=== PATIENT | male | born 1965 | race Caucasian/White ===

== ENCOUNTER 2023-01-04 14:55 | Emergency (ER) | payer MEDICARE ==
[2023-01-04] MEDS ORDERED: KETOROLAC 30 MG/ML INJ ONE (15:31)
[2023-01-04] MEDS ORDERED: ONDANSETRON 4 MG/2 ML VIAL ONE (15:31)
[2023-01-04] MEDS ORDERED: NA CHLORIDE 0.9% 1,000 ML ONE (15:31)
--- OUTSIDE RECORDS SUMMARY | 2023-01-04 15:37 | XMS REPORT | Continuity of Care Document ---
:1965 Author Organization [facility] t Address [address] [facility] [address] [place] [address] Care Team Providers Name Role Phone JOHN REYNOSO Primary Care Physician Unavailable JOHN REYNOSO Attending Clinician Unavailable SUZY VILLALBA Attending Clinician Unavailable ESTELLA DE LA GARZA Attending Clinician Unavailjose eduardo Cody Attending Clinician Unavailable Rizwana Mccarthy RN Attending Clinician Unavailable MARY ELLEN BORJA Attending Clinician Unavailable Frederic JAMES, Estella Mirza Attending Clinician [phone] Kashif SUPERVISOR UNLOADING, Jaylen Attending Clinician Ra Nelson MD Attending Clinician Lavonne Winter Attending Clinician Bharati OUTSIDE PROPERTY AGENT, Lindsey Elizabeth Attending Clinician BRODERICK Attending Clinician Unavailable Arnold JAMES, Jens Umana Attending Clinician Nghia Wei MD Attending Clinician Fabian Washington MD Attending Clinician Lauren OUTSIDE PROPERTY AGENT, Nathan Attending Clinician [facility] Attending Clinician Unavailable Jarek Baltazar MD Attending Clinician Villa BASHIR, Angella Griffiths Attending Clinician Kee OUTSIDE PROPERTY AGENT, Renea Seaman Attending Clinician Bernardino NELSONW, Lesly Attending Clinician Unavailable Poly Carlson RN Attending Clinician Unavailable Veronika Rausch MD Attending Clinician Tate OUTSIDE PROPERTY AGENT-CCortney Attending Clinician SURAJ ALAN Attending Clinician Unavailable SHANTA GUEVARA Attending Clinician Unavailable SHAKIR STREET Attending Clinician Unavailable SHELBY GASTON Attending Clinician Unavailable GUIDO LOPEZ Attending Clinician Unavailable PETRONA GENTILE Attending Clinician Unavailable BLAZE DORAN Attending Clinician Unavailable LAY BROWN Attending Clinician Unavailable Suraj Alan MD Attending Clinician Guido Lopez MD Attending Clinician Morgan ARGUELLO, Gayle Attending Clinician Unavailable YENIFER STORM Attending Clinician Unavailable Carly Dhillon MD Attending Clinician Peyton JAMES, Zuly Beal Attending Clinician [phone] Emeterio JAMES, Yenifer Collazo Attending Clinician TASH WILSON Attending Clinician Unavailable MAGDA WAITE Attending Clinician Unavailable Mariann JAMES, Magda Arreola Attending Clinician ESTELLA DE LA GARZA Attending Clinician Unavailable ELDON PAGE Attending Clinician Unavailable Carlos JAMES, Kvng Palmer Attending Clinician [phone] Danilo Tee MD Attending Clinician [phone] Ike JAMES, Ann Marie Bell Attending Clinician Toby JAMES, Eldon Attending Clinician Sinai Mcpherson MD Attending Clinician Jeri JAMES, Helen Oakes Attending Clinician Erma JAMES, Low Mosley Attending Clinician Yolanda Reynolds Attending Clinician Unavailable JADYN FERNANDEZ Attending Clinician Unavailable Chandler Landry DO S Attending Clinician Mohit JAMES, Jadyn Damian Attending Clinician [phone] Deon JAMES, Megan Gomez Attending Clinician [phone] Michael JAMES, Noman Attending Clinician Beth JAMES, Tiffany Attending Clinician Sushant Reeves Attending Clinician Sam JAMES, Solitario Davison Attending Clinician [phone] Jud JAMES, Ike Attending Clinician Cassandra JAMES, Maurice Attending Clinician Reji ARGUELLO, Nellie De La Vega Attending Clinician RAHUL SCRUGGS Attending Clinician Unavailable Moses JAMES, Jerry S Attending Clinician Rahul Scruggs MD Attending Clinician JERRY LOPES Attending Clinician Unavailable Apolinar Sheriff MD, Varghese Attending Clinician Henrique Meza MD Attending Clinician HENRIQUE MEZA Attending Clinician Unavailable ALANNAH BUTLER Attending Clinician Unavailable Luke SUPERVISOR UNLOADING, Alannah Attending Clinician Doctor Unassigned, [place] Attending Clinician Unavailable Ezequiel Arcos Attending Clinician EZEQUIEL CROOKS Attending Clinician Unavailable Pcp, Patient Does Not Have A Attending Clinician [phone] Marquise JAMES, Jody Attending Clinician Martinez JAMES, Pancho Quiroga Attending Clinician Yenifer JAMES, Wes Chavez Attending Clinician Perlita JAMES, Osbaldo Tamez Attending Clinician Paulino JAMES, Joi Obrien Attending Clinician [phone] Rodríguez JAMES, Jens Sotelo Attending Clinician [phone] HARSHAD PRESLEY Attending Clinician Unavailable Tim Saenz MD Attending Clinician David JAMES, Lulu Hammond Attending Clinician Adiel Antony MD Attending Clinician MD ADIEL ANTONY Attending Clinician Unavailable Avril JAMES, Buster Castillo Attending Clinician [phone] Jody Mendez RN Attending Clinician Unavailable Alivia Wood MA Attending Clinician Unavailable Marcelino Ocampo MD Attending Clinician MARCELINO OCAMPO Attending Clinician Unavailable Rivenes MD, Emigdio R. Attending Clinician Duarte Rincon MD Attending Clinician Room, Timothy Uro Procedure Attending Clinician Unavailable DUARTE RINCON Attending Clinician Unavailable DR BUDDY SHELLEY Attending Clinician Unavailable JOHN REYNOSO Admitting Clinician Unavailable SUZY VILLALBA Admitting Clinician Unavailable Glo Admitting Clinician Unavailable BRODERICK Admitting Clinician Unavailable RA NELSON Admitting Clinician Unavailable NGHIA WEI Admitting Clinician Unavailable SHANTA GUEVARA Admitting Clinician Unavailable GUIDO LOPEZ Admitting Clinician Unavailable PETRONA GENTILE Admitting Clinician Unavailable BLAZE DORAN Admitting Clinician Unavailable SURAJ ALAN Admitting Clinician Unavailable ZULY TODD Admitting Clinician Unavailable CARLY DHILLON Admitting Clinician Unavailable DANILO TEE Admitting Clinician Unavailable TIFFANY MAIN Admitting Clinician Unavailable RAHUL SCRUGGS Admitting Clinician Unavailable Rahul Scruggs MD Admitting Clinician JERRY LOPES Admitting Clinician Unavailable ALANNAH BUTLER Admitting Clinician Unavailable PANCHO MYERS Admitting Clinician Unavailable Pancho Myers MD Admitting Clinician ADIEL ANTONY Admitting Clinician Unavailable MD ADIEL ANTONY Admitting Clinician Unavailable Duarte Rincon MD Admitting Clinician DUARTE RINCON Admitting Clinician Unavailable DR BUDDY SHELLEY Admitting Clinician Unavailable Payers Payer Name Policy Type Policy Number Effective Date Expiration Date S anika BCBS ADV HMO [id number] 2017 EXCHANGE 00:00:00 [place] [id number] 2022 2023 ADVANTAGE (HMO) 00:00:00 00:00:00 Problems Condition Condition Condition Status Onset Resolution Last Treating Co mments Source Name Details Category Date Date Treatment Clinician Date Overweight Overweight Problem Active [facility] 9-08 da 00:00: Medical 00 Group Primary Primary Problem Active [place] [facility] 6 da nervous Nervous 00:00: Medical system System 00 Group lymphoma Lymphoma Seasonal Seasonal Problem Active [place] allergic Allergic 6 da rhinitis Rhinitis 00:00: Medica l 00 Group Non-Hodgki Non-Hodgki Problem Active [facility] n's n's 4-18 da lymphoma Lymphoma 00:00: [facility] 00 al nervous Nervous Health system System Outreac h Program Body mass Body Mass Problem Active [facility] index Index 4-18 da 25-29 - 25-29 - 00:00: [facility] overweight Overweight 00 al Health Outreac h Program Status Status Disease Active [facility] 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 Primary Primary Disease Active [facility] MANAGEMENT TRAINEE PROGRAM STORES MANAGEMENT TRAINEE PROGRAM STORES 3 st lymphoma lymphoma 00:00: Hospit a 00 l Neutropeni Neutropeni Disease Active M ethodi c fever c fever 04-22 st 00:00: Hospita 00 l Sepsis Sepsis Disease Active [facility] 2 st 00:00: Hospita 00 l MANAGEMENT TRAINEE PROGRAM STORES MANAGEMENT TRAINEE PROGRAM STORES Disease Active [facility] lymphoma lymphoma 2 st 00:00: Hospita 00 l Seasonal Seasonal Problem Active [place] allergy Allergy 1-18 da 00:00: [facility] Hypertensi Hypertensi Problem Active [facility] ve ve 1-11 da disorder Disorder 00:00: [facility] Atrial Atrial Problem Active [place] fibrillati Fibrillati 1-11 da on on 00:00: [facility] Cerebrovas Cerebrovas Problem Active [facility] cular cular 1-11 da accident Accident 00:00: [facility] Allergic Allergic Problem Active [place] rhinitis Rhinitis 1-11 da 00:00: [facility] Gastroesop Gastroesop Problem Active [facility] hageal hageal 1-11 da reflux Reflux 00:00: [facility] disease Disease 00 al Health Outreac h Program Rosacea Rosacea Problem Active [place] 1-11 da 00:[facility]: [facility] Abnormal Abnormal Problem Active [place] gait Gait 03-14 da 00:00: [facility] Hyperchole Hyperchole Problem Active [facility] sterolemia sterolemia 03-14 da 00:00: [facility] Hypertrigl Hypertrigl Problem Active [facility] yceridemia yceridemia 03-14 da 00:00: [facility] 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 04/23/22 collected 5.462 x 10-6 CD34/kg Severe Severe Disease Recurre [facility] sepsis sepsis [facility] MANAGEMENT TRAINEE PROGRAM STORES MANAGEMENT TRAINEE PROGRAM STORES Disease Recurre [facility] lymphoma lymphoma nce 8-17 [facility] Center Thrombocyt Thrombocyt Disease Active [facility] openia openia 8-05 [facility] Center Thrombocyt Thrombocyt Disease Recurre [facility] openia openia nce 8-05 [facility] 00 Center Pancytopen Pancytopen Disease Active [facility] ia ia 6-29 [facility] Center Sepsis Sepsis Disease Active [facility] 6[facility] Center Epistaxis Epistaxis Disease Active [facility] 6[facility] Hypokalemi Hypokalemi Disease Active [facility] a a 6-28 [facility] 00 Center Neutropeni Neutropeni Disease Active [facility] c fever c fever 6-28 [facility] Primary Primary Disease Recurre [facility] MANAGEMENT TRAINEE PROGRAM STORES MANAGEMENT TRAINEE PROGRAM STORES nce 6-14 [facility] lymphoma lymphoma 00:00: Medica l 00 Center Stroke-lik Stroke-lik Disease Active C [facility] e symptoms e symptoms 6-03 [facility] 00:00: Medical 00 Center Obesity Obesity Disease Active Univers (BMI (BMI 5-06 ity of 30-39.9) 30-39.9) 00:00: [place] 00 [facility] Brain mass Brain mass Disease Active U nivers 5-04 ity of 00:00: Medical Branch Cerebellar Cerebellar Disease Active U nivers mass mass 1-18 ity of 00:00: [place] [facility] Perineal Perineal Disease Active Unive rs abscess abscess 1-13 ity of 00:00: Medical Branch 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 2-11 st 00:00: Hospita 00 l Right Right Disease Active 2020-03 Methodi sided sided 2-09 st numbness numbness 00:00: Hospit a 00 l Cerebrovas Cerebrovas Disease Active 2020-03 M ethodi cular cular 1 st accident accident 00:00: Hospit a (CVA) (CVA) 00 l Walker as Walker as Disease Active 2020-03 Met hodi ambulation ambulation [address] [facility] aid aid 00:00: Hospita 00 l Diplopia Diplopia Disease Active 2020-[address] 00:00: Hospita 00 l Right Right Disease Active Univers nephrolith nephrolith 9-11 it y of iasis iasis 00:00: [place] 00 [facility] Branch SVT SVT Disease Recurre 2019-[address] (supravent (supravent nce 0-07 [facility] ricular ricular 00:00: Medical tachycardi tachycardi 00 Ce nter a) a) SVT SVT Disease Active Univers (supravent (supravent 9-30 it y of ricular ricular 00:00: [place] tachycardi tachycardi 00 Me dical a) a) Branch A-fib A-fib Disease Recurre 2017-[address] nce 1-26 [facility] Center DIARRHEA DIARRHEA Diagnosis Active 2011-032012-01-14 [facility] VOMITING VOMITING 03-15 08:45:00 l Active 07:00: Fred 01/14/2012 00 [place] PARTIAL PARTIAL Diagnosis Active 2011-032012-01-17 [facility]oria BOWEL BOWEL - 10:47:00 l OBSTRUCTIO OBSTRUCTIO 07:00: Jimmy bernal N N Active 00 01/14/2012 [place] Diarrhea Diarrhea Problem Active 2012-01-19 [facility]oria Active 10:05:59 l Problem [place] 01/19/2012 Liz Go INTESTINAL INTESTINA Diagnosis Active 2012-01-17 [facility] OBSTRUCT L OBSTRUCT 10:47:00 l NOS NOS Active Nitesh palmer [place] Lymphoma Lymphoma Disease Resolve 2021-09-21 2021-09-[address] [facility] 09-21 00:00:00 18:52:35 [facility] 00 Center Allergies, Adverse Reactions, Alerts Allergy Allergy Status Severity Reaction(s) Onset Inactive Treating Comm ents Source Name Type Date Date Clinician LORATADI DRUG Active Other-Cmnt Univ ers NE INGREDI 03-15 ity of 00:00: [place] 00 [facility] Branch Loratadi Propensi Active Other - See U nivers ne ty to comments 03-15 ity of adverse 00:00: [place] reaction 00 Medical s Branch LORATADI Allergy Active Low Other 2020-03 [facility] NE 03-10 00:00: 00 Loratadi Propensi Active Other (See 2020-[address] ne ty to Comments) 03-10 [facility] adverse 00:00: Medical reaction 00 Center s Loratadi Propensi Active Other (See 2020-03 Nasal Me thodi ne ty to Comments) 03-06 drip (30 st adverse 00:00: years Hospita reaction 00 ago) did l s to not have drug any rash, swelling, hives, or trouble breathing . Has not tried carole or zyrtec No Known DA Active [facility] NO KNOWN Allergy Active [facility] ALLERGIE S Claritin Allergy Active [place] to da substanc [facility] Family History Family Member Diagnosis Comments Start Date Stop Date Source Natural father Diabetes [facility] Natural mother Cirrhosis [facility] Natural mother Diabetes [facility] Social History Social Habit Start Date Stop Date Quantity Comments Source Sexual orientation 2021-02-11 Heterosexual Meth odist 05:26:20 (finding) Hospital History SDOH [facility] Alcohol Frequency Medical Center History SDOH [facility] Alcohol Std Drinks Medica l Center History SDOH [facility] Alcohol Binge Medical [facility] History SDOH [facility] Transport Non-Med Medical Center Alcohol intake 2022-11-06 2022-11-06 Current drinker of [facility] 00:[facility] 00:00:00 alcohol (finding) Medical Center History of Social 2022-08-14 2022-08-[address] function 00:00:00 00:00:00 Hospital Tobacco use and 2022-08-01 2022-08-[address] [facility] exposure 00:00:00 00:00:00 non-user Medical Center History [facility] 2021-11-27 2021-11-[address] [facility] Transport Med 00:00:00 00:00:[address] History [facility] 2021-11-27 2021-11-[address] [facility] Housing Unable to 00:00:00 00:00:00 Medical Center Pay History [facility] 2021-11-27 2021-11-[address] [facility] Housing Places 00:00:00 00:00:00 Medical Ce nter Lived History [facility] 2021-11-27 2021-11-[address] [facility] Housing Homeless 00:00:00 00:00:00 Medical Center Last Year Alcohol Comment 2021-11-15 2021-11-[address] [facility] 00:00:00 00:00:00 Medical Center Exposure to 2021-06-25 2021-07-05 Not sure University of SARS-CoV-2 (event) 00:00:00 12:10:00 [facility] Sex Assigned At [birth year] M [facility] 00:00:00 00:00:00 [facility] Center Smoking Status Start Date Stop Date Source Never smoked tobacco [facility] Medications Ordered Filled Start Stop Current Ordering Indication Dosage Frequency Signature Comments Components Source Medication Medication Date Date Medication? Clinician (SIG) Name Name multivitami Yes 1{tbl} Take [address] [facility] 9-05 tablet by S[place]hal (THERAGRAN) 10:10: mouth. Medi samantha tablet Center sulfamethox 2022- No [id number] 1{tbl} Take 1 [facility] azole-trime -11-[address] thoprim 00:00: 04:59 mouth Hospita (BACTRIM 00 :00 Every l DS) 800-160 Saturday, mg per Saturday, tablet and Saturday for 90 days. montelukast 2022-0 2022- No 10mg QD Take 1 Met hodi (SINGULAIR) -14 08-13 tablet (10 s t 10 mg 13:49: 00:00 mg total) Hospit a tablet 50 :00 by mouth l nightly. pantoprazol 2022-0 2022- No 40mg QD Take 1 Met hodi e 08-14- tablet (40 st (PROTONIX) 13:49: 00:00 mg total) H ospita 40 MG EC 30 :00 by mouth l tablet daily. acyclovir 0 Yes [id number] 400mg Q.5D Take 1 [facility] (ZOVIRAX) - tablet st 400 MG 00:00: (400 mg Hospita tablet 00 total) by l mouth 2 (two) times a day. pantoprazol 0 Yes 40mg Take [address] e 5-31 tablet (40 [facility] (PROTONIX) 13:06: mg total) Me dical 40 MG 00 by mouth. Center tablet montelukast [address] [facility] (SINGULAIR) 5-12 Tablet(s) Maura es 10 mg 00:00: By Mouth Medical tablet 00 Every Center Evening sulfamethox 2022-0 Yes 160mg{t Q.[id number] Take [address] azole-trime -19 rimetho [id number] tablet [facility] thoprim 00:00: prim} 3W (160 mg of Med ical (BACTRIM 00 trimethopr Cente r DS) 800-160 im total) mg per by mouth 3 tablet (three) times a week SAT/SAT/ I. sulfamethox 2022-0 2022- No 160mg{t Take [address] azole-trime -19 07-18 rimetho tablet [facility] thoprim 00:00: 23:59 prim} (160 mg of Me dical (BACTRIM 00 :00 trimethopr Cente r DS) 800-160 im total) mg per by mouth. tablet sulfamethox 3-0 2022- No [id number] 1{tbl} Take 1 [facility]i azole-trime -20 08- tablet by st thoprim 00:00: 00:00 mouth Hospita (BACTRIM 00 :00 Every l DS) 800-160 Saturday, mg per Saturday, and Saturday for 90 days. metoprolol metoprolol No metoprolol [place] succinate succinate 4-18 succinate da ER 25 mg ER 25 mg 00:00: ER 25 mg E [facility]isc[facility] tablet,exte tablet,exte 00 tablet,ext al nded nded ended Health release 24 release 24 release 24 Outreac hr TAKE 2 hr TAKE 2 hr TAKE 2 h TABLETS BY TABLETS BY TABLETS BY Program MOUTH ONCE MOUTH ONCE MOUTH ONCE DAILY DAILY DAILY tamsulosin tamsulosin No tamsulosin [place] 0.4 mg 0.4 mg 4-18 0.4 mg da capsule capsule 00:00: capsule Epis gyroscope repairer Take 1 Take 1 00 Take 1 al capsule capsule capsule Health every day every day every day Outreac by oral by oral by oral h route. route. route. Program atorvastati 2022- No 40mg QD Take 1 Met hodi n (LIPITOR) 3-30 03-30 tablet (40 s t 40 mg 18:59: 00:00 mg total) Hospit a tablet 21 :00 by mouth l nightly. On hold metoprolol 2022- No 12.5mg Q.5D Take 0.5 [facility]i tartrate 3-30 03-[address] (LOPRESSOR) 18:59: 00:00 (12.5 mg H ospita 25 mg 21 :00 total) by l tablet mouth 2 (two) times a day. multivitami Yes 1{tbl} QD Take 1 Me thodi n tablet 3-[address] 18:59: mouth Hospita 19 every l evening. At 1900. ondansetron 2022- No 8mg Q8H Take 1 Met hodi ODT 3-30 03-30 tablet (8 st (ZOFRAN-ODT 14:16: 00:00 mg total) Hospita ) 8 MG 26 :00 by mouth l disintegrat every 8 ing tablet (eight) hours as needed for nausea or vomiting. acyclovir Yes 400mg Q.5D Take 1 [facility] (ZOVIRAX) 3-30 tablet [facility] 400 MG 00:00: (400 mg Medical tablet 00 total) by Center mouth in the morning and 1 tablet (400 mg total) before bedtime. dexAMETHaso 0 Yes Take by [facility] 3-30 mouth. [facility] (DECADRON) 00:00: Medical 1 MG tablet 00 Center doxycycline 0 Yes 100mg Q.5D Take [address] (VIBRAMYCIN 3-30 capsule [facility] ) 100 MG 00:00: (100 mg Medica l capsule 00 total) by Center mouth in the morning and 1 capsule (100 mg total) before bedtime. ondansetron 0 Yes 8mg Take [address] (ZOFRAN-ODT 3-30 tablet (8 Maura es ) 8 MG 00:00: mg total) Medica l disintegrat [address] ing tablet traMADoL Yes 50mg Q6H Take [address] (ULTRAM) 50 3-30 tablet (50 [facility]es mg tablet 00:00: mg total) Med ical 00 by mouth Center every 6 (six) hours if needed. ondansetron 2022- No 8mg Q8H Take 1 Met hodi ODT 3-30 06-13 tablet (8 st (ZOFRAN-ODT 00:00: 00:00 mg total) Hospita ) 8 MG 00 :00 by mouth l disintegrat every 8 ing tablet (eight) hours as needed for nausea or vomiting. acyclovir 2022- No [id number] 400mg Q.5D Take 1 [facility]i (ZOVIRAX) 3-30 06-[address] 400 MG 00:00: 00:00 (400 mg Hospita tablet 00 :00 total) by l mouth 2 (two) times a day. traMADoL 2022- [place] [id number] 50mg Q6H Take 1 Metho di (ULTRAM) 50 3-30 06-13 tablet (50 s t mg tablet 00:00: 00:00 mg total) Ho spita 00 :00 by mouth l every 6 (six) hours as needed for moderate pain .acute pain. pentamidine 2022- No 300mg Q30D Take 300 [facility] (PENTAM) 3-30 04-[address] 300 mg in 00:00: 00:00 nebulizati H ospita Sterile 00 :00 on every l Water 30 (thirty) days. Due 06/29/22 in clinic dexAMETHaso 2022- No 1mg Q.5D Take 1 Met hodi ne 05-31-07 tablet (1 st (DECADRON) 00:00: 04:59 mg total) H ospita 1 MG tablet 00 :00 by mouth l every 12 (twelve) hours for 7 days. doxycycline 2022- No 100mg Q.5D Take 1 Me thodi (VIBRAMYCIN 05-31-[address] ) 100 MG 00:00: 04:59 (100 mg Hospi ta capsule 00 :00 total) by l mouth 2 (two) times a day for 5 days. acyclovir 2022- No 400mg Q.5D Take 1 Meth saroj (ZOVIRAX) 04-[address] 400 MG 15:12: 00:00 (400 mg Hospita tablet 15 :00 total) by l mouth 2 (two) times a day. fluconazole No 200mg QD Take 1 Me thodi (DIFLUCAN) 04-[address] 200 MG 15:12: 00:00 (200 mg Hospita tablet 15 :00 total) by l mouth daily. X 14 days, started on 04/12/22 levoFLOXaci No 500mg QD Take 1 Me thodi n 04-[address] (LEVAQUIN) 15:12: 00:00 (500 mg Hos guy 500 MG 15 :00 total) by l tablet mouth daily. filgrastim- 2022- No 960ug QD 1.6 mL Me thodi sndz 04-25 ([address] (ZARXIO) 15:12: 00:00 total) Hospit a 480 mcg/0.8 15 :00 daily. 2 l mL syringe shots daily X 9 days, started on 04/17/22 METOPROLOL 2022- No 12.5mg Q.5D Take 12.5 Methodi SUCCINATE 04-22 02-[address] ORAL 13:09: 00:00 mouth 2 Hospita 23 :00 (two) l times a day. montelukast 2022- No [id number] 10mg QD Take 1 [facility] (SINGULAIR) 04-16 tablet (10 s t 10 mg 00:00: 00:00 mg total) Hospit a tablet 00 :00 by mouth l nightly for 30 days. prednisoLON 2022- No [id number] 2[drp] Q.2D Administer Methodi E acetate 04-[address] (PRED 00:00: 00:00 both eyes Hospit a FORTE) 1 % 00 :00 every 4 l ophthalmic (four) suspension hours while awake. levoFLOXaci 2022- No [id number] 500mg QD Take 1 Methodi n 04-[address] (Levaquin) 00:00: 00:00 (500 mg Hos guy 500 MG 00 :00 total) by l tablet mouth daily. acyclovir 2022- No 400mg Q.5D Take 1 Meth saroj (ZOVIRAX) 04-[address] 400 MG 00:00: 00:00 (400 mg Hospita tablet 00 :00 total) by l mouth 2 (two) times a day. ondansetron 2022- No 8mg Q8H Take 1 Met hodi ODT 04-12 tablet (8 st (ZOFRAN-ODT 00:00: 00:00 mg total) Hospita ) 8 MG 00 :00 by mouth l disintegrat every 8 ing tablet (eight) hours as needed for nausea or vomiting. fluconazole 2022- No 200mg QD Take 1 Me thodi (DIFLUCAN) 04-[address] 200 MG 00:00: 00:00 (200 mg Hospita tablet 00 :00 total) by l mouth daily. acetaminoph 2022- No 325mg Q8H Take 325 Methodi en 04-10 02-[address] (TYLENOL) 12:23: 00:00 mouth Hospit a 325 MG 59 :00 every 8 l tablet (eight) hours as needed for moderate pain or fever. levoFLOXaci 0 2022- No [id number] 500mg QD Take 1 Methodi n 03-[address] (Levaquin) 00:00: 00:00 (500 mg Hos guy 500 MG 00 :00 total) by l tablet mouth daily for 10 days. levoFLOXaci No [id number] 500mg QD Take 1 Methodi n 03-[address] (Levaquin) 00:00: 00:00 (500 mg Hos guy 500 MG 00 :00 total) by l tablet mouth daily for 10 days. montelukast No 10mg QD Take 1 Met hodi (SINGULAIR) 03-14 tablet (10 s t 10 mg 00:00: 00:00 mg total) Hospit a tablet 00 :00 by mouth l nightly for 30 days. benzonatate [id number] 100mg Q.[id number] Take 1 [facility] (TESSALON) 03-[id number] 100 MG 00:00: 00:00 3D (100 mg Hospita capsule 00 :00 total) by l mouth 3 (three) times a day as needed for cough for up to 30 days. levoFLOXaci No [id number] 500mg QD Take 1 Methodi n 03-[address] (Levaquin) 00:00: 00:00 (500 mg Hos guy 500 MG 00 :00 total) by l tablet mouth daily for 10 days. filgrastim- No [id number] 960ug QD Inject 1.6 Methodi sndz 03-14 mL (960 st (Zarxio) 00:00: 05:59 mcg total) Ho spita 480 mcg/0.8 00 :00 under the l mL syringe skin daily for 9 days. lisinopriL 2021-03 No 20mg QD Take 20 mg [facility] (PRINIVIL) 04-25- by mouth st 20 mg 11:26: 00:00 daily. Hospita tablet 16 :00 l aspirin 2021-03 No 81mg QD Take 81 mg Met hodi (ECOTRIN) 04-25-[address] 81 MG 11:26: 00:00 daily. Hospita enteric 04 :00 l coated tablet metoprolol 2021-03 No 50mg QD Take 50 mg Methodi succinate 2-02-[address] XL 11:25: 00:00 daily. Hospita (TOPROL-XL) 41 :00 l 50 mg 24 hr tablet ondansetron 2021-03 No 8mg Q8H Take 8 mg [facility] (ZOFRAN) 8 04-[address] [facility] tablet 10:10: 00:00 every 8 [facility] 42 :00 (eight) l hours as needed for nausea or vomiting. meclizine 2021-03 No 25mg Q24H Take 25 mg [facility] (ANTIVERT) 04-[address] 25 mg 10:10: 00:00 daily as Hospita tablet 39 :00 needed for l dizziness or nausea. montelukast 2021-03 No Metho di (SINGULAIR) 04-2011 st 10 mg 00:00: 00:00 Hospita tablet 00 :00 l atorvastati Yes 40mg QD Take [address] [facility] (LIPITOR) 9-30 by mouth [facility] 40 MG 13:26: nightly. Medical tablet 55 [place] atorvastati Yes 40mg QD Take [address] [facility] (LIPITOR) 8-23 by mouth [facility] 40 MG 10:59: nightly. Medical tablet 03 [place] atorvastati Yes 40mg QD Take [address] [facility] (LIPITOR) 8-23 by mouth [facility] 40 MG 10:59: nightly. Medical tablet 03 [place] levoFLOXaci No 500mg QD Take [address] [facility] 10-[facility] (LEVAQUIN) 00:00: 23:59 (500 mg Med ical 500 MG 00 :00 total) by Center tablet mouth daily for 14 days. fluconazole No 200mg QD Take [address] (DIFLUCAN) 10-24 tablet [facility] 200 MG 00:00: 23:59 (200 mg Medical tablet 00 :00 total) by Center mouth daily for 14 days. acyclovir 2021- No 400mg Q.5D Take [address] [facility] (ZOVIRAX) 10-24 tablet [facility] 400 MG 00:00: 23:59 (400 mg Medical tablet 00 :00 total) by Center mouth 2 (two) times daily for 14 days. levoFLOXaci 2021-0 2022- No 500mg QD Take [address] [facility] 10-24 [facility] (LEVAQUIN) 00:00: 23:59 (500 mg Med ical 500 MG 00 :00 total) by Center tablet mouth daily for 14 days. fluconazole 2021-0 2022- No 200mg QD Take [address] (DIFLUCAN) 10-24 [facility] 200 MG 00:00: 23:59 (200 mg Medical tablet 00 :00 total) by Center mouth daily for 14 days. acyclovir 2021- 202- No 400mg Q.5D Take [address] [facility] (ZOVIRAX) 10-24 tablet [facility] 400 MG 00:00: 23:59 (400 mg Medical tablet 00 :00 total) by Center mouth 2 (two) times daily for 14 days. aspirin 81 2021-0 2022- No 81mg QD Take [address] [facility] MG chewable 10-07 by mouth [facility] [facility] tablet 13:03: 00:00 daily. Medical 33 :00 Center aspirin 81 2021-0 2022- No 81mg QD Take [address] [facility] MG chewable 10-07 by mouth [place] [facility] tablet 13:03: 00:00 daily. Medical 33 :00 Center levoFLOXaci 2021-0 2022- No 500mg QD Take [address] [facility] 09-26 tablet [facility] (LEVAQUIN) 00:00: 23:59 (500 mg Med ical 500 MG 00 :00 total) by Center tablet mouth daily for 14 days. fluconazole 2021-0 2022- No 200mg QD Take [address] (DIFLUCAN) 09-26 tablet [facility] 200 MG 00:00: 23:59 (200 mg Medical tablet 00 :00 total) by Center mouth daily for 14 days. levoFLOXaci 2-0 2022- No 500mg QD Take [address] [facility] 09-26 tablet [facility] (LEVAQUIN) 00:00: 23:59 (500 mg Med ical 500 MG 00 :00 total) by Center tablet mouth daily for 14 days. fluconazole 2022-0 2022- No 200mg QD Take [address] (DIFLUCAN) 09-26 tablet [facility] 200 MG 00:00: 23:59 (200 mg Medical tablet 00 :00 total) by Center mouth daily for 14 days. acyclovir 2021- No 400mg Q.5D Take [address] [facility] (ZOVIRAX) 09-26 tablet [facility] 400 MG 00:00: 23:59 (400 mg Medical tablet 00 :00 total) by Center mouth 2 (two) times daily for 5 days. acyclovir 2021- No 400mg Q.5D Take [address] [facility] (ZOVIRAX) 09-26 tablet [facility] 400 MG 00:00: 23:59 (400 mg Medical tablet 00 :00 total) by Center mouth 2 (two) times daily for 5 days. metoprolol 2022- No 12.5mg Q.5D Take 0.[address] tartrate 09-12 tablets [facility] (LOPRESSOR) 00:00: 23:59 (12.5 mg M edical 25 MG 00 :00 total) by Center tablet mouth 2 (two) times daily for 180 days. metoprolol 2022- No 12.5mg Q.5D Take 0.[address] tartrate 09-12- tablets [facility] (LOPRESSOR) 00:00: 23:59 (12.5 mg M edical 25 MG 00 :00 total) by Center tablet mouth 2 (two) times daily for 180 days. metoprolol 2022- No 12.5mg Q.5D Take 0.[address] tartrate 09-12 tablets [facility] (LOPRESSOR) 00:00: 23:59 (12.5 mg M edical 25 MG 00 :00 total) by Center tablet mouth 2 (two) times daily for 180 days. metoprolol 2021- No 50mg Q.5D Take [address] [facility] succinate 08-23- by mouth 2 [facility] [facility] (TOPROL-XL) 17:07: 00:00 (two) Medi samantha 50 MG 24 hr 03 :00 times Center tablet daily. metoprolol 2021- No 50mg Q.5D Take [address] [facility] succinate 08-23- by mouth 2 [facility] [facility] (TOPROL-XL) 17:07: 00:00 (two) Medi samantha 50 MG 24 hr 03 :00 times Center tablet daily. clopidogreL 2-0 2022- No 75mg QD Take [address] [facility] (PLAVIX) 75 -22 08-21 by mouth [facility] [facility] mg tablet 08:04: 00:00 daily. Medic al 49 :00 Center clopidogreL 2-0 2022- No 75mg QD Take [address] [facility] (PLAVIX) 75 -22 08-21 by mouth [place] [facility] mg tablet 08:04: 00:00 daily. Medic al 49 :00 Center tamsulosin 2022-0 Yes .4mg QD Take 1 [facility] (FLOMAX[facility] 6-21 capsule [facility] 0.4 mg Cap 00:00: (0.4 mg Medi samantha 24 hr 00 total) by Center capsule mouth daily. famotidine 2022-0 Yes 20mg Q.5D Take 1 [facility] (PEPCID) 20 6-21 tablet (20 [facility] kes MG tablet 00:00: mg total) Med ical 00 by mouth 2 Center (two) times daily. tamsulosin 2022-0 Yes .4mg QD Take 1 [facility] (FLOMAX[facility] 6-21 [facility] 0.4 mg Cap 00:00: (0.4 mg Medi samantha 24 hr 00 total) by Center capsule mouth daily. famotidine 2022-0 Yes 20mg Q.5D Take 1 [facility] (PEPCID) 20 6-21 tablet (20 Damari kes MG tablet 00:00: mg total) Med ical 00 by mouth 2 Center (two) times daily. tamsulosin 2022-0 Yes .4mg QD Take 1 [facility] (FLOMAX[facility] 6-21 [facility] 0.4 mg Cap 00:00: (0.4 mg Medi samantha 24 hr 00 total) by Center capsule mouth daily. allopurinoL 2022-0 2023- No 300mg QD Take [address] (ZYLOPRIM) -22 08- tablet [facility] 300 MG 00:00: 23:59 (300 mg Medical tablet 00 :00 total) by Center mouth daily. allopurinoL 2022-0 2023- No 300mg QD Take [address] (ZYLOPRIM) 6-22 08-21 tablet [facility] 300 MG 00:00: 23:59 (300 mg Medical tablet 00 :00 total) by Center mouth daily. tamsulosin 2022- No .4mg QD Take 1 Meth saroj (FLOMAX) 08-[address] 0.4 mg 00:00: 00:00 (0.4 mg Hospita capsule 00 :00 total) by l mouth daily. metoprolol 2021- No 50mg QD Take [address] [facility] [address] succinate 08-22 tablets [facility] (TOPROL-XL) 00:00: 00:00 (50 mg Med ical 25 MG 24 hr 00 :00 total) by [facility] tablet mouth daily. ciprofloxac 2021- No 500mg Q.5D Take [address] in HCl 08-22 tablet [facility] (CIPRO) 500 00:00: 00:00 (500 mg Me dical MG tablet 00 :00 total) by Cente r mouth 2 (two) times daily for 14 days. acyclovir 2021- No 400mg Q.5D Take [address] [facility] [address] (ZOVIRAX) 08-22 tablet [facility] 400 MG 00:00: 00:00 (400 mg Medical tablet 00 :00 total) by Center mouth 2 (two) times daily for 14 days. fluconazole 2021- No 200mg QD Take [address] (DIFLUCAN) 08-22 tablet [facility] 200 MG 00:00: 00:00 (200 mg Medical tablet 00 :00 total) by Center mouth daily for 14 days. metoprolol 2021- No 50mg QD Take [address] [facility] [address] succinate 08-22 tablets [facility] (TOPROL-XL) 00:00: 00:00 (50 mg Med ical 25 MG 24 hr 00 :00 total) by [facility] tablet mouth daily. ciprofloxac 2021- No 500mg Q.5D Take [address] in HCl 08-22 tablet [facility] (CIPRO) 500 00:00: 00:00 (500 mg Me dical MG tablet 00 :00 total) by Cente r mouth 2 (two) times daily for 14 days. acyclovir 2021- No 400mg Q.5D Take [address] [facility] [address] (ZOVIRAX) 08-22 tablet [facility] 400 MG 00:00: 00:00 (400 mg Medical tablet 00 :00 total) by Center mouth 2 (two) times daily for 14 days. fluconazole 2021- No 200mg QD Take [address] (DIFLUCAN) 08-22 tablet [facility] 200 MG 00:00: 00:00 (200 mg Medical tablet 00 :00 total) by Center mouth daily for 14 days. pegfilgrast 2021- No 6mg Inject 0.[address] [facility] [address] im 08-22- mLs (6 mg [facility] (NEULASTA) 00:00: 23:59 total) Medi samantha 6 mg/0.6 mL 00 :00 subcutaneo Ce nter injection usly once for 1 dose. pegfilgrast 2021- No 6mg Inject 0.[address] im 08-22-21 mLs (6 mg [facility] (NEULASTA) 00:00: 23:59 total) Medi samantha 6 mg/0.6 mL 00 :00 subcutaneo Ce nter injection usly once for 1 dose. dimethyl 2021-2021- No [id number] Take 120 [facility] fumarate 5-18 11-22 mg by ity of 120 mg 00:00: 05:59 mouth 2 [place] (14)- 240 00 :00 (two) Medical mg (46) times Branch CpDR daily for 7 days, THEN 240 mg 2 (two) times daily for 180 days. dimethyl 2021-2021- No [id number] Take 120 [facility] fumarate 5-17 05-18 mg by ity of 120 mg 00:00: 00:00 mouth 2 [place] (14)- 240 00 :00 (two) Medical mg (46) times Branch CpDR daily for 7 days, THEN 240 mg 2 (two) times daily for 180 days. aspirin 81 2021-0 Yes 81mg Take 81 mg U nivers mg EC 5-16 by mouth. ity of tablet 15:19: [address] Branch lisinopriL 2021-0 Yes 20mg Take 20 mg U nivers 20 mg 5-16 by mouth. ity of tablet 15:: [address] meclizine 2021-0 Yes 25mg Take 25 mg Un brittney 25 mg 5-16 by mouth. ity of tablet 15:19: [address] metoprolol Yes 50mg Take 50 mg U nivers succinate 5-16 by mouth. ity o f XL 50 mg 24 15:19: [facility] tablet [address] [place] [address] ondansetron Yes 8mg Take 8 mg U nivers 8 mg tablet 5-16 by mouth. ity of 15:19: [address] pantoprazol Yes 40mg Take 40 mg Univers e 40 mg EC 5-16 by mouth ity o f tablet 15:19: daily. [address] aspirin 81 Yes 81mg Take 81 mg U nivers mg EC 5-16 by mouth. ity of tablet 15:19: [address] lisinopriL Yes 20mg Take 20 mg U nivers 20 mg 5-16 by mouth. ity of tablet 15:19: [address] meclizine Yes 25mg Take 25 mg Un brittney 25 mg 5-16 by mouth. ity of tablet 15:19: [address] metoprolol Yes 50mg Take 50 mg U nivers succinate 5-16 by mouth. ity o f XL 50 mg 24 15:19: [facility] tablet [address] [place] [address] ondansetron Yes 8mg Take 8 mg U nivers 8 mg tablet 5-16 by mouth. ity of 15:19: [address] pantoprazol Yes 40mg Take 40 mg Univers e 40 mg EC 5-16 by mouth ity o f tablet 15:19: daily. [address] doxycycline 2021- No [id number] 100mg Take 100 [facility] hyclate 50 5-16 05-22 mg by ity of mg Tab 00:00: 04:59 mouth 2 [place] 00 :00 (two) Medical times [place] daily for 5 days. erythromyci 2021- No [id number] .5[in_u Place 0.5 Univers n 5 mg/gram 5-13 05-21 s] Inches in it y of (0.5 %) 00:00: 04:59 [place] ophthalmic 00 :00 4 (four) Medic al ointment times [place] daily for 7 days. atorvastati Yes [id number] 40mg Take 1 [facility] n 40 mg 1-21 tablet by ity of tablet 00:00: mouth at [place] 00 bedtime. Medical Branch atorvastati Yes [id number] 40mg Take 1 [facility] n 40 mg 1-21 tablet by ity of tablet 00:00: mouth at [place] 00 bedtime. Medical Branch meclizine 2020-03 Yes 25mg Q24H Take 25 mg Me thodi (ANTIVERT) 2-[address] 25 mg 18:20: daily as Hospita tablet 02 needed for l dizziness or nausea. acetaminoph 2020-03 Yes 325mg Q8H Take 325 M ethodi en 2-[address] (TYLENOL) 18:20: mouth Hospita 325 MG 02 every 8 l tablet (eight) hours as needed for moderate pain or fever. meclizine 2020-03 Yes 25mg Q24H Take 25 mg Me [facility]odi (ANTIVERT) 2-[address] 25 mg 18:20: daily as Hospita tablet 02 needed for l dizziness or nausea. acetaminoph 2020-03 Yes 325mg Q8H Take 325 M ethodi en 2-[address] (TYLENOL) 18:20: mouth Hospita 325 MG 02 every 8 l tablet (eight) hours as needed for moderate pain or fever. B 2020-03- No 1{tbl} QD Take 1 [facility] complex-vit 04-[address] yo 00:00: 05:59 mouth Hospita C-folic 00 :00 daily for l acid 30 days. (FOLBEE PLUS 5 MG) 5 mg tablet per tablet thiamine 2020-03- No 50mg QD Take 0.5 Meth saroj mononitrate 04-[address] , vit B1, 00:00: 05:59 (50 mg Hospi ta (B-1) 100 00 :00 total) by l mg tablet mouth daily for 30 days. B 2020-03- No 1{tbl} QD Take 1 [facility] complex-vit -03-[address] yo 00:00: 05:59 mouth Hospita C-folic 00 :00 daily for l acid 30 days. (FOLBEE PLUS 5 MG) 5 mg tablet per tablet thiamine 2020-03 No 50mg QD Take 0.5 Meth saroj mononitrate 2-16 -[address] , vit B1, 00:00: 05:59 (50 mg Hospi ta (B-1) 100 00 :00 total) by l mg tablet mouth daily for 30 days. lisinopriL 2020-03 Yes 20mg QD Take 20 mg M [facility]i (PRINIVIL) 2-[address] 20 mg 18:21: daily. Hospita tablet 20 l pantoprazol 2020-03 Yes 40mg QD Take 40 mg [facility] e 2-[address] (PROTONIX) 18:21: daily. Hospi ta 40 MG EC 20 l tablet aspirin 2020-03 Yes 81mg QD Take 81 mg Meth saroj (ECOTRIN) 2-[address] 81 MG 18:21: daily. Hospita enteric 20 l coated tablet ondansetron 2020-03 Yes 8mg Q8H Take 8 mg M [facility]i (ZOFRAN) 8 2-[address] MG tablet 18:21: every 8 Hospi ta 20 (eight) l hours as needed for nausea or vomiting. metoprolol 2020-03 Yes 50mg QD Take 50 mg M ethodi succinate 2-[address] XL 18:21: daily. Hospita (TOPROL-XL) 20 l 50 mg 24 hr tablet lisinopriL 2020-03 Yes 20mg QD Take 20 mg M [facility]i (PRINIVIL) 2-[address] 20 mg 18:21: daily. Hospita tablet 20 l pantoprazol 2020-03 Yes 40mg QD Take 40 mg [facility] e 2-[address] (PROTONIX) 18:21: daily. Hospi ta 40 MG EC 20 l tablet aspirin 2020-03 Yes 81mg QD Take 81 mg Meth saroj (ECOTRIN) 2-[address] 81 MG 18:21: daily. Hospita enteric 20 l coated tablet ondansetron 2020-03 Yes 8mg Q8H Take 8 mg M [facility]i (ZOFRAN) 8 2-[address] MG tablet 18:21: every 8 Hospi ta 20 (eight) l hours as needed for nausea or vomiting. metoprolol 2020-03 Yes 50mg QD Take 50 mg M ethodi succinate 2-[address] XL 18:21: daily. Hospita (TOPROL-XL) 20 l 50 mg 24 hr tablet atorvastati 2020-03 No 40mg QD Take 1 Met hodi n (LIPITOR) 2-15 - tablet (40 s t 40 mg 00:00: 05:59 mg total) Hospit a tablet 00 :00 by mouth l nightly for 30 days. atorvastati 2020-03 No 40mg QD Take 1 Met hodi n (LIPITOR) 2-15 - tablet (40 s t 40 mg 00:00: 05:59 mg total) Hospit a tablet 00 :00 by mouth l nightly for 30 days. dexamethaso 2020-03- No Take 1 Met hodi ne 2-15 - tablet (4 st (DECADRON) 00:00: 05:59 mg total) H ospita 4 MG tablet 00 :00 by mouth 3 l (three) times a day for 7 days, THEN 1 tablet (4 mg total) 2 (two) times a day with meals for 7 days, THEN 1 tablet (4 mg total) daily with breakfast for 7 days. dexamethaso 2020-03 No Take 1 Met hodi ne -15 - tablet (4 st (DECADRON) 00:00: 05:59 mg total) H ospita 4 MG tablet 00 :00 by mouth 3 l (three) times a day for 7 days, THEN 1 tablet (4 mg total) 2 (two) times a day with meals for 7 days, THEN 1 tablet (4 mg total) daily with breakfast for 7 days. metoprolol 2020-03 No 50mg Q.5D Take 50 mg [facility] tartrate 03-[address] (LOPRESSOR) 16:15: 00:00 (two) [facility]osp [facility] 50 mg 03 :00 times a l tablet day. metoprolol 2020-03 No 50mg Q.5D Take 50 mg [facility] tartrate 03-[address] (LOPRESSOR) 16:15: 00:00 (two) [facility] 50 mg 03 :00 times a l tablet day. meclizine 2020-03 No 25mg Q.5D Take 25 mg M [facility]i (ANTIVERT) 1-22 11-[address] 25 mg 19:26: 00:00 (two) Hospita tablet 41 :00 times a l day. meclizine 2020-03 No 25mg Q.5D Take 25 mg M [facility]i (ANTIVERT) 03-[address] 25 mg 19:26: 00:00 (two) Hospita tablet 41 :00 times a l day. meclizine 2020-03- No 25mg Take 1 [facility] ([facility] 03-10 tablet (25 Damari kes 25 mg 00:00: 23:59 mg total) Medica l tablet 00 :00 by mouth 3 Center (three) times daily as needed for up to 10 days. meclizine 2020-03 No 25mg Take 1 [facility] (ANTIVERT) 03-10 tablet (25 Damari kes 25 mg 00:00: 23:59 mg total) Medica l tablet 00 :00 by mouth 3 Center (three) times daily as needed for up to 10 days. ondansetron 2020-03- No 8mg Take [address] [facility] (Zofran) 8 03-10 tablet (8 [facility] [facility] MG tablet 00:00: 23:59 mg total) Me dical 00 :00 by mouth Center every 8 (eight) hours as needed for up to 7 days. ondansetron 2020-03 No 8mg Take [address] [facility] (Zofran) 8 03-1014 tablet (8 [facility] MG tablet 00:00: 23:59 mg total) Me dical 00 :00 by mouth Center every 8 (eight) hours as needed for up to 7 days. clopidogreL 2020-03- No 75mg QD Take 1 Met hodi (PLAVIX) 75 03-08 tablet (75 s t mg tablet 00:00: 05:59 mg total) Ho spita 00 :00 by mouth l daily for 30 days. clopidogreL 2020-03- No 75mg QD Take 1 Met hodi (PLAVIX) 75 03-0806 tablet (75 s t mg tablet 00:00: 05:59 mg total) Ho spita 00 :00 by mouth l daily for 30 days. acetaminoph No [id number] 650mg Take 2 [facility] en 325 mg 11-13 tablets by ity of tablet 00:00: 04:59 mouth [place] 00 :00 every 6 Medical (six) Branch hours as needed for Pain (scale 1-3). acetaminoph No [id number] 650mg Take 2 Univers en 325 mg 11-13 tablets by ity of tablet 00:00: 04:59 mouth [place] 00 :00 every 6 Medical (six) Branch hours as needed for Pain (scale 1-3). metoprolol 2019-03 No 50mg QD Take [address] [facility] succinate 0-07 10-07 tablet (50 [place] (TOPROL-XL) 00:00: 23:59 mg total) Medical 50 MG 24 hr 00 :00 by mouth Cent er tablet daily. metoprolol 2019-03 No 50mg QD Take [address] [facility] [address] succinate 0-07 10-07 tablet (50 [facility] (TOPROL-XL) 00:00: 23:59 mg total) Medical 50 MG 24 hr 00 :00 by mouth Cent er tablet daily. lisinopriL 2019-03 No 20mg QD Take [address] (PRINIVIL,Z 0-01 06-21 by mouth [place] es ESTRIL) 10 00:00: 00:00 daily . Med ical MG tablet 00 :00 [place] lisinopriL 2019-03 No 20mg QD Take [address] [facility] (PRINIVIL,Z 0-01 06-21 by mouth [place] es ESTRIL) 10 00:00: 00:00 daily . Med ical MG tablet 00 :00 Center pantoprazol No 40mg QD Take [address] [facility] 8-12 09-17 by mouth [facility] (PROTONIX) 00:00: 00:00 daily. Medi samantha 40 MG 00 :00 Center tablet pantoprazol No 40mg QD Take [address] 8-12 09-17 by mouth [facility] (PROTONIX) 00:00: 00:00 daily. Medi samantha 40 MG 00 :00 Center tablet Prilosec 2011-03 Yes [facility] 20 mg, 1 Rodri kg OTC 20 mg 1-15 Fay tab, PO, l oral 15:45: Yepez Daily, 14 [facility] enteric 40 tab, coated Substituti tablet on Allowed Prilosec 2011-03 Yes Hilary 20 mg, 1 Rodri kg OTC 20 mg 1-15 Fay tab, PO, l oral 15:45: [place] Daily, 14 Fred enteric 40 tab, coated Substituti tablet on Allowed Prilosec 2011-03 Yes Hilary 20 mg, 1 Rodri kg OTC 20 mg 1-15 Fay tab, PO, l oral 15:45: Ye[place] Daily, 14 [place] enteric 40 tab, coated Substituti tablet on Allowed Prilosec 2011-03 Yes Hilary 20 mg, 1 Rodri kg OTC 20 mg 1-15 Fay tab, PO, l oral 15:45: [place] Daily, 14 [place] enteric 40 tab, coated Substituti tablet on Allowed Prilosec 2011-03 Yes Hilary 20 mg, 1 Rodri kg OTC 20 mg 1-15 Fay tab, PO, l oral 15:45: [place] Daily, 14 [facility] enteric 40 tab, coated Substituti tablet on Allowed Prilosec 2011-03 Yes Hilary 20 mg, 1 Rodri kg OTC 20 mg 1-15 Fay tab, PO, l oral 15:45: [place] Daily, 14 Fred enteric 40 tab, coated Substituti tablet on Allowed Prilosec 2011-03 Yes Hilary 20 mg, 1 Rodri kg OTC 20 mg 1-15 Fay tab, PO, l oral 15:45: [place] Daily, 14 [place] enteric 40 tab, coated Substituti tablet on Allowed Prilosec 2011-03 Yes Hilary 20 mg, 1 Rodri kg OTC 20 mg 1-15 Fay tab, PO, l oral 15:45: [place] Daily, 14 Fred enteric 40 tab, coated Substituti tablet on Allowed Prilosec 2011-03 Yes Hil[facility] 20 mg, 1 Rodri kg OTC 20 mg 1-15 Fay tab, PO, l oral 15:45: [place] Daily, 14 [place] enteric 40 tab, coated Substituti tablet on Allowed Prilosec 2011-03 Yes Hil[facility] 20 mg, 1 Rodri kg OTC 20 mg 1-15 Fay tab, PO, l oral 15:45: [place] Daily, 14 [facility] enteric 40 tab, coated Substituti tablet on Allowed Prilosec 2011-03 Yes Hil[facility] 20 mg, 1 Rodri kg OTC 20 mg 1-15 Fay tab, PO, l oral 15:45: [place] Daily, 14 [place] enteric 40 tab, coated Substituti tablet on Allowed Prilosec 2011-03 Yes Hil[facility] 20 mg, 1 Rodri kg OTC 20 mg 1-15 Fay tab, PO, l oral 15:45: [place] Daily, 14 [facility] enteric 40 tab, coated Substituti tablet on Allowed Prilosec 2011-03 Yes [facility] 20 mg, 1 Rodri kg OTC 20 mg 1-15 Fay tab, PO, l oral 15:45: [place] Daily, 14 [place] enteric 40 tab, coated Substituti tablet on Allowed Prilosec 2011-03 Yes Hil[facility] 20 mg, 1 Rodri kg OTC 20 mg 1-15 Fay tab, PO, l oral 15:45: [place] Daily, 14 [facility] enteric 40 tab, coated Substituti tablet on Allowed Prilosec 2011-03 Yes [facility] 20 mg, 1 Rodri kg OTC 20 mg 1-15 Fay tab, PO, l oral 15:45: [place] Daily, 14 [facility] enteric 40 tab, coated Substituti tablet on Allowed Prilosec 2011-03 Yes [facility] 20 mg, 1 Rodri kg OTC 20 mg 1-15 Fay tab, PO, l oral 15:45: [place] Daily, 14 [place] enteric 40 tab, coated Substituti tablet on Allowed Prilosec 2011-03 Yes Hil[facility] 20 mg, 1 Rodri kg OTC 20 mg 1-15 Fay tab, PO, l oral 15:45: [place] Daily, 14 [place] enteric 40 tab, coated Substituti tablet on Allowed Prilosec 2011-03 Yes Hil[facility] 20 mg, 1 Rodri kg OTC 20 mg 1-15 Fay tab, PO, l oral 15:45: [place] Daily, 14 [facility] enteric 40 tab, coated Substituti tablet on Allowed Prilosec 2011-03 Yes [facility] 20 mg, 1 Rodri kg OTC 20 mg 1-15 Fay tab, PO, l oral 15:45: [place] Daily, 14 [facility] enteric 40 tab, coated Substituti tablet on Allowed Prilosec 2011-03 Yes [facility] 20 mg, 1 Rodri kg OTC 20 mg 1-15 Fay tab, PO, l oral 15:45: [place] Daily, 14 [place] enteric 40 tab, coated Substituti tablet on Allowed D5NS + KCL 2011-03 No Hilary 1,000 mL, M emoria 20mEq/L 1-14 Fay Rate: 75 l 1000ml 14:19: Yepez ml/hr, Fred (Premix) 00 Infuse 1,000 mL over: 13.3 hr, Route: IV, kg, Total Volume: 1,000, Start date: 01/16/12 8:19:00, Duration: 30 day, Stop date: 02/15/12 8:18:00 D5NS + KCL 2011-03 No Hilary 1,000 mL, M emoria 20mEq/L 1-14 Fay Rate: 75 l 1000ml 14:19: Yepez ml/hr, [place] (Premix) 00 Infuse 1,000 mL over: 13.3 hr, Route: IV, kg, Total Volume: 1,000, Start date: 01/16/12 8:19:00, Duration: 30 day, Stop date: 02/15/12 8:18:00 D5NS + KCL 2011-03 No Hilary 1,000 mL, M emoria 20mEq/L 1-14 Fay Rate: 75 l 1000ml 14:19: Yepez ml/hr, Fred (Premix) 00 Infuse 1,000 mL over: 13.3 hr, Route: IV, kg, Total Volume: 1,000, Start date: 01/16/12 8:19:00, Duration: 30 day, Stop date: 02/15/12 8:18:00 D5NS + KCL 2011-03 No Hilary 1,000 mL, M emoria 20mEq/L 1-14 Fay Rate: 75 l 1000ml 14:19: Yepez ml/hr, Fred (Premix) 00 Infuse 1,000 mL over: 13.3 hr, Route: IV, kg, Total Volume: 1,000, Start date: 01/16/12 8:19:00, Duration: 30 day, Stop date: 02/15/12 8:18:00 D5NS + KCL 2011-03 No Hilary 1,000 mL, M emoria 20mEq/L 1-14 Fay Rate: 75 l 1000ml 14:19: Yepez ml/hr, Fred (Premix) 00 Infuse 1,000 mL over: 13.3 hr, Route: IV, kg, Total Volume: 1,000, Start date: 01/16/12 8:19:00, Duration: 30 day, Stop date: 02/15/12 8:18:00 D5NS + KCL 2011-03 No Hilary 1,000 mL, M emoria 20mEq/L 1-14 Fay Rate: 75 l 1000ml 14:19: Yepez ml/hr, Fred (Premix) 00 Infuse 1,000 mL over: 13.3 hr, Route: IV, kg, Total Volume: 1,000, Start date: 01/16/12 8:19:00, Duration: 30 day, Stop date: 02/15/12 8:18:00 D5NS + KCL 2011-03 No Hilary 1,000 mL, M emoria 20mEq/L 1-14 Fay Rate: 75 l 1000ml 14:19: Yepez ml/hr, Fred (Premix) 00 Infuse 1,000 mL over: 13.3 hr, Route: IV, kg, Total Volume: 1,000, Start date: 01/16/12 8:19:00, Duration: 30 day, Stop date: 02/15/12 8:18:00 D5NS + KCL 2011-03 No Hilary 1,000 mL, M emoria 20mEq/L 1-14 Fay Rate: 75 l 1000ml 14:19: Yepez ml/hr, Fred (Premix) 00 Infuse 1,000 mL over: 13.3 hr, Route: IV, kg, Total Volume: 1,000, Start date: 01/16/12 8:19:00, Duration: 30 day, Stop date: 02/15/12 8:18:00 D5NS + KCL 2011-03 No Hilary 1,000 mL, M emoria 20mEq/L 1-14 Fay Rate: 75 l 1000ml 14:19: Yepez ml/hr, [place] (Premix) 00 Infuse 1,000 mL over: 13.3 hr, Route: IV, kg, Total Volume: 1,000, Start date: 01/16/12 8:19:00, Duration: 30 day, Stop date: 02/15/12 8:18:00 D5NS + KCL 2011-03 No Hilary 1,000 mL, M emoria 20mEq/L 1-14 Fay Rate: 75 l 1000ml 14:19: Yepez ml/hr, [place] (Premix) 00 Infuse 1,000 mL over: 13.3 hr, Route: IV, kg, Total Volume: 1,000, Start date: 01/16/12 8:19:00, Duration: 30 day, Stop date: 02/15/12 8:18:00 D5NS + KCL 2011-03 No [facility] 1,000 mL, M emoria 20mEq/L 1-14 Fay Rate: 75 l 1000ml 14:19: Yepez ml/hr, [place] ([facility]) 00 Infuse 1,000 mL over: 13.3 hr, Route: IV, kg, Total Volume: 1,000, Start date: 01/16/12 8:19:00, Duration: 30 day, Stop date: 02/15/12 8:18:00 D5NS + KCL 2011-03 No Hilary 1,000 mL, M emoria 20mEq/L 1-14 Fay Rate: 75 l 1000ml 14:19: Yepez ml/hr, [place] ([facility]) 00 Infuse 1,000 mL over: 13.3 hr, Route: IV, kg, Total Volume: 1,000, Start date: 01/16/12 8:19:00, Duration: 30 day, Stop date: 02/15/12 8:18:00 D5NS + KCL 2011-03 No Hilary 1,000 mL, M emoria 20mEq/L 1-14 Fay Rate: 75 l 1000ml 14:19: Yepez ml/hr, [place] ([facility]) 00 Infuse 1,000 mL over: 13.3 hr, Route: IV, kg, Total Volume: 1,000, Start date: 01/16/12 8:19:00, Duration: 30 day, Stop date: 02/15/12 8:18:00 D5NS + KCL 2011-03 No Hilary 1,000 mL, M emoria 20mEq/L 1-14 Fay Rate: 75 l 1000ml 14:19: Yepez ml/hr, [place] ([facility]) 00 Infuse 1,000 mL over: 13.3 hr, Route: IV, kg, Total Volume: 1,000, Start date: 01/16/12 8:19:00, Duration: 30 day, Stop date: 02/15/12 8:18:00 D5NS + KCL 2011-03 No Hilary 1,000 mL, M emoria 20mEq/L 1-14 Fay Rate: 75 l 1000ml 14:19: Yepez ml/hr, [place] ([facility]) 00 Infuse 1,000 mL over: 13.3 hr, Route: IV, kg, Total Volume: 1,000, Start date: 01/16/12 8:19:00, Duration: 30 day, Stop date: 02/15/12 8:18:00 D5NS + KCL 2011-03 No Hilary 1,000 mL, M emoria 20mEq/L 1-14 Fay Rate: 75 l 1000ml 14:19: Yepez ml/hr, Fred ([facility]) 00 Infuse 1,000 mL over: 13.3 hr, Route: IV, kg, Total Volume: 1,000, Start date: 01/16/12 8:19:00, Duration: 30 day, Stop date: 02/15/12 8:18:00 D5NS + KCL 2011-03 No Hilary 1,000 mL, M emoria 20mEq/L 1-14 Fay Rate: 75 l 1000ml 14:19: Yepez ml/hr, Fred ([facility]) 00 Infuse 1,000 mL over: 13.3 hr, Route: IV, kg, Total Volume: 1,000, Start date: 01/16/12 8:19:00, Duration: 30 day, Stop date: 02/15/12 8:18:00 D5NS + KCL 2011-03 No Hilary 1,000 mL, M emoria 20mEq/L 1-14 Fay Rate: 75 l 1000ml 14:19: Yepez ml/hr, Fred ([facility]) 00 Infuse 1,000 mL over: 13.3 hr, Route: IV, kg, Total Volume: 1,000, Start date: 01/16/12 8:19:00, Duration: 30 day, Stop date: 02/15/12 8:18:00 D5NS + KCL 2011-03 No Hilary 1,000 mL, M emoria 20mEq/L 1-14 Fay Rate: 75 l 1000ml 14:19: Yepez ml/hr, [place] ([facility]) 00 Infuse 1,000 mL over: 13.3 hr, Route: IV, kg, Total Volume: 1,000, Start date: 01/16/12 8:19:00, Duration: 30 day, Stop date: 02/15/12 8:18:00 D5NS + KCL 2011-03 No Hilary 1,000 mL, M emoria 20mEq/L 1-14 Fay Rate: 75 l 1000ml 14:19: Yepez ml/hr, Fred ([facility]) 00 Infuse 1,000 mL over: 13.3 hr, Route: IV, kg, Total Volume: 1,000, Start date: 01/16/12 8:19:00, Duration: 30 day, Stop date: 02/15/12 8:18:00 Protonix 2011-03 No Crystal 40 mg, Rodri kg 1-13 Ch[facility] Route: l 15:00: Annmarie IVP, Drug [place] 00 form: INJ, Daily, Dosing Weight 91.818, kg, Patient is NPO, Start date: 01/15/12 9:00:00, Duration: 30 day, Stop date: 02/13/12 9:00:00 Protonix 2011-03 No Crystal 40 mg, Rodri kg 1-13 [facility] Route: l 15:00: Annmarie IVP, Drug [place] 00 form: INJ, Daily, Dosing Weight 91.818, kg, Patient is NPO, Start date: 01/15/12 9:00:00, Duration: 30 day, Stop date: 02/13/12 9:00:00 Protonix 2011-03 No Crystal 40 mg, Rodri kg 1-13 [facility] Route: l 15:00: Annmarie IVP, Drug [place] 00 form: INJ, Daily, Dosing Weight 91.818, kg, Patient is NPO, Start date: 01/15/12 9:00:00, Duration: 30 day, Stop date: 02/13/12 9:00:00 Protonix 2011-03 No Crystal 40 mg, Rodri kg 1-13 [facility] Route: l 15:00: Annmarie IVP, Drug [place] 00 form: INJ, Daily, Dosing Weight 91.818, kg, Patient is NPO, Start date: 01/15/12 9:00:00, Duration: 30 day, Stop date: 02/13/12 9:00:00 Protonix 2011-03 No Crystal 40 mg, Rodri kg 1-13 [place] Route: l 15:00: Annmarie IVP, Drug [place] 00 form: INJ, Daily, Dosing Weight 91.818, kg, Patient is NPO, Start date: 01/15/12 9:00:00, Duration: 30 day, Stop date: 02/13/12 9:00:00 Protonix 2011- No Crystal 40 mg, Rodri kg 1-13 [place] Route: l 15:00: Annmarie IVP, Drug [place] 00 form: INJ, Daily, Dosing Weight 91.818, kg, Patient is NPO, Start date: 01/15/12 9:00:00, Duration: 30 day, Stop date: 02/13/12 9:00:00 Protonix 2011-03 No Crystal 40 mg, Rodri kg 1-13 [place] Route: l 15:00: Annmarie IVP, Drug [place] 00 form: INJ, Daily, Dosing Weight 91.818, kg, Patient is NPO, Start date: 01/15/12 9:00:00, Duration: 30 day, Stop date: 02/13/12 9:00:00 Protonix 2011-03 No Crystal 40 mg, Rodri kg 1-13 [place] Route: l 15:00: Annmarie IVP, Drug [place] 00 form: INJ, Daily, Dosing Weight 91.818, kg, Patient is NPO, Start date: 01/15/12 9:00:00, Duration: 30 day, Stop date: 02/13/12 9:00:00 Protonix 2011- No Crystal 40 mg, Rodri kg 1-13 [facility] Route: l 15:00: Annmarie IVP, Drug [place] 00 form: INJ, Daily, Dosing Weight 91.818, kg, Patient is NPO, Start date: 01/15/12 9:00:00, Duration: 30 day, Stop date: 02/13/12 9:00:00 Protonix 2011-03 No Crystal 40 mg, Rodri kg 1-13 [facility] Route: l 15:00: Annmarie IVP, Drug [place] 00 form: INJ, Daily, Dosing Weight 91.818, kg, Patient is NPO, Start date: 01/15/12 9:00:00, Duration: 30 day, Stop date: 02/13/12 9:00:00 Protonix 2011- No Crystal 40 mg, Rodri kg 1-13 [facility] Route: l 15:00: Annmarie IVP, Drug [place] 00 form: INJ, Daily, Dosing Weight 91.818, kg, Patient is NPO, Start date: 01/15/12 9:00:00, Duration: 30 day, Stop date: 02/13/12 9:00:00 Protonix 2011-03 No Crystal 40 mg, Rodri kg 1-13 [facility] Route: l 15:00: Annmarie IVP, Drug [place] 00 form: INJ, Daily, Dosing Weight 91.818, kg, Patient is NPO, Start date: 01/15/12 9:00:00, Duration: 30 day, Stop date: 02/13/12 9:00:00 Protonix 2011-03 No Crystal 40 mg, Rodri kg 1-13 [facility] Route: l 15:00: Annmarie IVP, Drug [place] 00 form: INJ, Daily, Dosing Weight 91.818, kg, Patient is NPO, Start date: 01/15/12 9:00:00, Duration: 30 day, Stop date: 02/13/12 9:00:00 Protonix 2011-03 No Crystal 40 mg, Rodri kg 1-13 [facility] Route: l 15:00: Annmarie IVP, Drug [place] 00 form: INJ, Daily, Dosing Weight 91.818, kg, Patient is NPO, Start date: 01/15/12 9:00:00, Duration: 30 day, Stop date: 02/13/12 9:00:00 Protonix 2011-03 No Crystal 40 mg, Rodri kg 1-13 [facility] Route: l 15:00: Annmarie IVP, Drug [place] 00 form: INJ, Daily, Dosing Weight 91.818, kg, Patient is NPO, Start date: 01/15/12 9:00:00, Duration: 30 day, Stop date: 02/13/12 9:00:00 Protonix 2011-03 No Crystal 40 mg, Rodri kg 1-13 [facility] Route: l 15:00: Annmarie IVP, Drug [place] 00 form: INJ, Daily, Dosing Weight 91.818, kg, Patient is NPO, Start date: 01/15/12 9:00:00, Duration: 30 day, Stop date: 02/13/12 9:00:00 Protonix 2011-03 No Crystal 40 mg, Rodri kg 1-13 [facility] Route: l 15:00: Annmarie IVP, Drug [place] 00 form: INJ, Daily, Dosing Weight 91.818, kg, Patient is NPO, Start date: 01/15/12 9:00:00, Duration: 30 day, Stop date: 02/13/12 9:00:00 Protonix 2011-03 No Crystal 40 mg, Rodri kg 1-13 [facility] Route: l 15:00: Annmarie IVP, Drug [place] 00 form: INJ, Daily, Dosing Weight 91.818, kg, Patient is NPO, Start date: 01/15/12 9:00:00, Duration: 30 day, Stop date: 02/13/12 9:00:00 Protonix 2011-03 No Crystal 40 mg, Rodri kg 1-13 [facility] Route: l 15:00: Annmarie IVP, Drug [place] 00 form: INJ, Daily, Dosing Weight 91.818, kg, Patient is NPO, Start date: 01/15/12 9:00:00, Duration: 30 day, Stop date: 02/13/12 9:00:00 Protonix 2011-03 No Crystal 40 mg, Rodri kg 1-13 [facility] Route: l 15:00: Annmarie IVP, Drug [place] 00 form: INJ, Daily, Dosing Weight 91.818, kg, Patient is NPO, Start date: 01/15/12 9:00:00, Duration: 30 day, Stop date: 02/13/12 9:00:00 Flagyl 2011-03 No Fay M 500 mg, Rodri kg 1-13 [place] Route: l 14:00: IVPB, Q8H, [place] 00 Dosing Weight 91.818, kg, Start date: 01/15/12 8:00:00, Duration: 1 day, Stop date: 01/16/12 0:00:00 Flagyl 2011-03 No Fay M 500 mg, Rodri kg 1-13 [place] Route: l 14:00: IVPB, Q8H, [place] 00 Dosing Weight 91.818, kg, Start date: 01/15/12 8:00:00, Duration: 1 day, Stop date: 01/16/12 0:00:00 Flagyl 2011-03 No Afy M 500 mg, Rodri kg 1-13 [place] Route: l 14:00: IVPB, Q8H, [place] 00 Dosing Weight 91.818, kg, Start date: 01/15/12 8:00:00, Duration: 1 day, Stop date: 01/16/12 0:00:00 Flagyl 2011-03 No Fay M 500 mg, Rodri kg 1-13 [place] Route: l 14:00: IVPB, Q8H, [place] 00 Dosing Weight 91.818, kg, Start date: 01/15/12 8:00:00, Duration: 1 day, Stop date: 01/16/12 0:00:00 Flagyl 2011-03 No Fay M 500 mg, Rodri kg 1-13 [place] Route: l 14:00: IVPB, Q8H, [place] 00 Dosing Weight 91.818, kg, Start date: 01/15/12 8:00:00, Duration: 1 day, Stop date: 01/16/12 0:00:00 Flagyl 2011-03 No Fay M 500 mg, Rodri kg 1-13 [place] Route: l 14:00: IVPB, Q8H, [place] 00 Dosing Weight 91.818, kg, Start date: 01/15/12 8:00:00, Duration: 1 day, Stop date: 01/16/12 0:00:00 Flagyl 2011-03 No Fay M 500 mg, Rodri kg 1-13 [place] Route: l 14:00: IVPB, Q8H, [place] 00 Dosing Weight 91.818, kg, Start date: 01/15/12 8:00:00, Duration: 1 day, Stop date: 01/16/12 0:00:00 Flagyl 2011-03 No Fay M 500 mg, Rodri kg 1-13 [place] Route: l 14:00: IVPB, Q8H, [place] 00 Dosing Weight 91.818, kg, Start date: 01/15/12 8:00:00, Duration: 1 day, Stop date: 01/16/12 0:00:00 Flagyl 2011-03 No Fay M 500 mg, Rodri kg 1-13 [place] Route: l 14:00: IVPB, Q8H, [place] 00 Dosing Weight 91.818, kg, Start date: 01/15/12 8:00:00, Duration: 1 day, Stop date: 01/16/12 0:00:00 Flagyl 2011-03 No Fay M 500 mg, Rodri kg 1-13 [place] Route: l 14:00: IVPB, Q8H, [place] 00 Dosing Weight 91.818, kg, Start date: 01/15/12 8:00:00, Duration: 1 day, Stop date: 01/16/12 0:00:00 Flagyl 2011-03 No Fay M 500 mg, Rodri kg 1-13 [place] Route: l 14:00: IVPB, Q8H, [place] 00 Dosing Weight 91.818, kg, Start date: 01/15/12 8:00:00, Duration: 1 day, Stop date: 01/16/12 0:00:00 Flagyl 2011-03 No Fay M 500 mg, Rodri kg 1-13 [place] Route: l 14:00: IVPB, Q8H, [place] 00 Dosing Weight 91.818, kg, Start date: 01/15/12 8:00:00, Duration: 1 day, Stop date: 01/16/12 0:00:00 Flagyl 2011-03 No Fay M 500 mg, Rodri kg 1-13 [place] Route: l 14:00: IVPB, Q8H, [place] 00 Dosing Weight 91.818, kg, Start date: 01/15/12 8:00:00, Duration: 1 day, Stop date: 01/16/12 0:00:00 Flagyl 2011-03 No Fay M 500 mg, Rodri kg 1-13 [place] Route: l 14:00: IVPB, Q8H, [place] 00 Dosing Weight 91.818, kg, Start date: 01/15/12 8:00:00, Duration: 1 day, Stop date: 01/16/12 0:00:00 Flagyl 2011-03 No Fay M 500 mg, Rodri kg 1-13 [place] Route: l 14:00: IVPB, Q8H, [place] 00 Dosing Weight 91.818, kg, Start date: 01/15/12 8:00:00, Duration: 1 day, Stop date: 01/16/12 0:00:00 Flagyl 2011-03 No Fay M 500 mg, Rodri kg 1-13 [place] Route: l 14:00: IVPB, Q8H, [place] 00 Dosing Weight 91.818, kg, Start date: 01/15/12 8:00:00, Duration: 1 day, Stop date: 01/16/12 0:00:00 Flagyl 2011-03 No Fay M 500 mg, Rodri kg 1-13 [place] Route: l 14:00: IVPB, Q8H, [place] 00 Dosing Weight 91.818, kg, Start date: 01/15/12 8:00:00, Duration: 1 day, Stop date: 01/16/12 0:00:00 Flagyl 2011-03 No Fay M 500 mg, Rodri kg 1-13 [place] Route: l 14:00: IVPB, Q8H, [place] 00 Dosing Weight 91.818, kg, Start date: 01/15/12 8:00:00, Duration: 1 day, Stop date: 01/16/12 0:00:00 Flagyl 2011-03 No Fay M 500 mg, Rodri kg 1-13 [place] Route: l 14:00: IVPB, Q8H, [place] 00 Dosing Weight 91.818, kg, Start date: 01/15/12 8:00:00, Duration: 1 day, Stop date: 01/16/12 0:00:00 Flagyl 2011-03 No Fay M 500 mg, Rodri kg 1-13 [place] Route: l 14:00: IVPB, Q8H, [place] 00 Dosing Weight 91.818, kg, Start date: 01/15/12 8:00:00, Duration: 1 day, Stop date: 01/16/12 0:00:00 Levaquin 2011-03 No Fay M 500 mg, Me moria 1-13 [place] Route: l 07:00: IVPB, [place] 00 [id number], Dosing Weight 91.818, kg, Start date: 01/15/12 1:00:00, Duration: 30 day, Stop date: 02/13/12 1:00:00 Levaquin 2011- No Fay M 500 mg, Me moria 1-13 [place] Route: l 07:00: IVPB, [place] 00 [id number], Dosing Weight 91.818, kg, Start date: 01/15/12 1:00:00, Duration: 30 day, Stop date: 02/13/12 1:00:00 Levaquin 2011-03 No Fay M 500 mg, Me moria 03-16 [place] Route: l 07:00: IVPB, [place] 00 [id number], Dosing Weight 91.818, kg, Start date: 01/15/12 1:00:00, Duration: 30 day, Stop date: 02/13/12 1:00:00 Levaquin 2011-03 No Fay M 500 mg, Me moria 03-16 [place] Route: l 07:00: IVPB, [place] 00 [id number], Dosing Weight 91.818, kg, Start date: 01/15/12 1:00:00, Duration: 30 day, Stop date: 02/13/12 1:00:00 Levaquin 2011-03 No Fay M 500 mg, Me moria 03-16 [place] Route: l 07:00: IVPB, [place] 00 [id number], Dosing Weight 91.818, kg, Start date: 01/15/12 1:00:00, Duration: 30 day, Stop date: 02/13/12 1:00:00 Levaquin 2011-03 No Fay M 500 mg, Me moria 03-16 [place] Route: l 07:00: IVPB, Fred 00 [id number], Dosing Weight 91.818, kg, Start date: 01/15/12 1:00:00, Duration: 30 day, Stop date: 02/13/12 1:00:00 Levaquin 2011-03 No Fay M 500 mg, Me moria 03-16 [facility] Route: l 07:00: IVPB, [place] 00 [id number], Dosing Weight 91.818, kg, Start date: 01/15/12 1:00:00, Duration: 30 day, Stop date: 02/13/12 1:00:00 Levaquin 2011-03 No Fay M 500 mg, Me moria 03-16 [place] Route: l 07:00: IVPB, [place] 00 [id number], Dosing Weight 91.818, kg, Start date: 01/15/12 1:00:00, Duration: 30 day, Stop date: 02/13/12 1:00:00 Levaquin 2011-03 No Fay M 500 mg, Me moria 1-13 [place] Route: l 07:00: IVPB, Fred 00 [id number], Dosing Weight 91.818, kg, Start date: 01/15/12 1:00:00, Duration: 30 day, Stop date: 02/13/12 1:00:00 Levaquin 2011-03 No Fay M 500 mg, Me moria 03-16 [place] Route: l 07:00: IVPB, [place] 00 [id number], Dosing Weight 91.818, kg, Start date: 01/15/12 1:00:00, Duration: 30 day, Stop date: 02/13/12 1:00:00 Levaquin 2011-03 No Fay M 500 mg, Me moria 03-16 [place] Route: l 07:00: IVPB, [place] 00 [id number], Dosing Weight 91.818, kg, Start date: 01/15/12 1:00:00, Duration: 30 day, Stop date: 02/13/12 1:00:00 Levaquin 2011-03 No Fay M 500 mg, Me moria 03-16 [place] Route: l 07:00: IVPB, [place] 00 [id number], Dosing Weight 91.818, kg, Start date: 01/15/12 1:00:00, Duration: 30 day, Stop date: 02/13/12 1:00:00 Levaquin 2011-03 No Fay M 500 mg, Me moria 03-16 [place] Route: l 07:00: IVPB, [place] 00 [id number], Dosing Weight 91.818, kg, Start date: 01/15/12 1:00:00, Duration: 30 day, Stop date: 02/13/12 1:00:00 Levaquin 2011-03 No Fay M 500 mg, Me moria -13 [place] Route: l 07:00: IVPB, [place] 00 [id number], Dosing Weight 91.818, kg, Start date: 01/15/12 1:00:00, Duration: 30 day, Stop date: 02/13/12 1:00:00 Levaquin 2011-03 No Fay M 500 mg, Me moria 13 [place] Route: l 07:00: IVPB, [place] 00 [id number], Dosing Weight 91.818, kg, Start date: 01/15/12 1:00:00, Duration: 30 day, Stop date: 02/13/12 1:00:00 Levaquin 2011-03 No Fay M 500 mg, Me moria 03-16 [place] Route: l 07:00: IVPB, [place] 00 [id number], Dosing Weight 91.818, kg, Start date: 01/15/12 1:00:00, Duration: 30 day, Stop date: 02/13/12 1:00:00 Levaquin 2011-03 No Fay M 500 mg, Me moria 03-16 [place] Route: l 07:00: IVPB, [place] 00 [id number], Dosing Weight 91.818, kg, Start date: 01/15/12 1:00:00, Duration: 30 day, Stop date: 02/13/12 1:00:00 Levaquin 2011-03 No Fay M 500 mg, Me moria 03-16 [place] Route: l 07:00: IVPB, [place] 00 [id number], Dosing Weight 91.818, kg, Start date: 01/15/12 1:00:00, Duration: 30 day, Stop date: 02/13/12 1:00:00 Levaquin 2011-03 No Fay M 500 mg, Me moria 03-16 [place] Route: l 07:00: IVPB, Fred 00 [id number], Dosing Weight 91.818, kg, Start date: 01/15/12 1:00:00, Duration: 30 day, Stop date: 02/13/12 1:00:00 Levaquin 2011-03 No Fay M 500 mg, Me moria 03-16 [place] Route: l 07:00: IVPB, [place] 00 [id number], Dosing Weight 91.818, kg, Start date: 01/15/12 1:00:00, Duration: 30 day, Stop date: 02/13/12 1:00:00 Lactated 2011-03 No Fay M 1,000 mL, Memoria Ringers IV 03-16 [place] Rate: 125 l 1000 mL 06:03: ml/hr, [place] 00 Infuse over: 8 hr, Route: IV, Dosing Weight 91.818 kg, Total Volume: 1,000, Start date: 01/15/12 0:03:00, Duration: 5 day, Stop date: 01/20/12 0:02:00 Lactated 2011-03 No Fay M 1,000 mL, Memoria Ringers IV 1-13 [place] Rate: 125 l 1000 mL 06:03: ml/hr, [place] 00 Infuse over: 8 hr, Route: IV, Dosing Weight 91.818 kg, Total Volume: 1,000, Start date: 01/15/12 0:03:00, Duration: 5 day, Stop date: 01/20/12 0:02:00 Lactated 2011-03 No Fay M 1,000 mL, Memoria Ringers IV 1-13 [place] Rate: 125 l 1000 mL 06:03: ml/hr, [place] 00 Infuse over: 8 hr, Route: IV, Dosing Weight 91.818 kg, Total Volume: 1,000, Start date: 01/15/12 0:03:00, Duration: 5 day, Stop date: 01/20/12 0:02:00 Lactated 2011-03 No Fay M 1,000 mL, Memoria Ringers IV 1-13 [place] Rate: 125 l 1000 mL 06:03: ml/hr, [place] 00 Infuse over: 8 hr, Route: IV, Dosing Weight 91.818 kg, Total Volume: 1,000, Start date: 01/15/12 0:03:00, Duration: 5 day, Stop date: 01/20/12 0:02:00 Lactated 2011-03 No Fay M 1,000 mL, Memoria Ringers IV 1-13 [place] Rate: 125 l 1000 mL 06:03: ml/hr, [place] 00 Infuse over: 8 hr, Route: IV, Dosing Weight 91.818 kg, Total Volume: 1,000, Start date: 01/15/12 0:03:00, Duration: 5 day, Stop date: 01/20/12 0:02:00 Lactated 2011-03 No Fay M 1,000 mL, Memoria Ringers IV 1-13 [place] Rate: 125 l 1000 mL 06:03: ml/hr, [place] 00 Infuse over: 8 hr, Route: IV, Dosing Weight 91.818 kg, Total Volume: 1,000, Start date: 01/15/12 0:03:00, Duration: 5 day, Stop date: 01/20/12 0:02:00 Lactated 2011-03 No Fay M 1,000 mL, Memoria Ringers IV -13 [place] Rate: 125 l 1000 mL 06:03: ml/hr, [place] 00 Infuse over: 8 hr, Route: IV, Dosing Weight 91.818 kg, Total Volume: 1,000, Start date: 01/15/12 0:03:00, Duration: 5 day, Stop date: 01/20/12 0:02:00 Lactated 2011-03 No Fay M 1,000 mL, Memoria Ringers IV 03-16 [place] Rate: 125 l 1000 mL 06:03: ml/hr, [place] 00 Infuse over: 8 hr, Route: IV, Dosing Weight 91.818 kg, Total Volume: 1,000, Start date: 01/15/12 0:03:00, Duration: 5 day, Stop date: 01/20/12 0:02:00 Lactated 2011-03 No Fay M 1,000 mL, Memoria Ringers IV 03-16 [place] Rate: 125 l 1000 mL 06:03: ml/hr, [place] 00 Infuse over: 8 hr, Route: IV, Dosing Weight 91.818 kg, Total Volume: 1,000, Start date: 01/15/12 0:03:00, Duration: 5 day, Stop date: 01/20/12 0:02:00 Lactated 2011-03 No Fay M 1,000 mL, Memoria Ringers IV 03-16 [place] Rate: 125 l 1000 mL 06:03: ml/hr, [place] 00 Infuse over: 8 hr, Route: IV, Dosing Weight 91.818 kg, Total Volume: 1,000, Start date: 01/15/12 0:03:00, Duration: 5 day, Stop date: 01/20/12 0:02:00 Lactated 2011-03 No Fay M 1,000 mL, Memoria Ringers IV -13 [place] Rate: 125 l 1000 mL 06:03: ml/hr, [place] 00 Infuse over: 8 hr, Route: IV, Dosing Weight 91.818 kg, Total Volume: 1,000, Start date: 01/15/12 0:03:00, Duration: 5 day, Stop date: 01/20/12 0:02:00 Lactated 2011-03 No Fay M 1,000 mL, Memoria Ringers IV 03-16 [place] Rate: 125 l 1000 mL 06:03: ml/hr, [place] 00 Infuse over: 8 hr, Route: IV, Dosing Weight 91.818 kg, Total Volume: 1,000, Start date: 01/15/12 0:03:00, Duration: 5 day, Stop date: 01/20/12 0:02:00 Lactated 2011-03 No Fay M 1,000 mL, Memoria Ringers IV 03-16 [place] Rate: 125 l 1000 mL 06:03: ml/hr, [place] 00 Infuse over: 8 hr, Route: IV, Dosing Weight 91.818 kg, Total Volume: 1,000, Start date: 01/15/12 0:03:00, Duration: 5 day, Stop date: 01/20/12 0:02:00 Lactated 2011-03 No Fay M 1,000 mL, Memoria Ringers IV 03-16 [place] Rate: 125 l 1000 mL 06:03: ml/hr, [place] 00 Infuse over: 8 hr, Route: IV, Dosing Weight 91.818 kg, Total Volume: 1,000, Start date: 01/15/12 0:03:00, Duration: 5 day, Stop date: 01/20/12 0:02:00 Lactated 2011-03 No Fay M 1,000 mL, Memoria Ringers IV 03-16 [place] Rate: 125 l 1000 mL 06:03: ml/hr, [place] 00 Infuse over: 8 hr, Route: IV, Dosing Weight 91.818 kg, Total Volume: 1,000, Start date: 01/15/12 0:03:00, Duration: 5 day, Stop date: 01/20/12 0:02:00 Lactated 2011-03 No Fay M 1,000 mL, Memoria Ringers IV 03-16 [place] Rate: 125 l 1000 mL 06:03: ml/hr, [place] 00 Infuse over: 8 hr, Route: IV, Dosing Weight 91.818 kg, Total Volume: 1,000, Start date: 01/15/12 0:03:00, Duration: 5 day, Stop date: 01/20/12 0:02:00 Lactated 2011-03 No Fay M 1,000 mL, Memoria Ringers IV 1-13 [place] Rate: 125 l 1000 mL 06:03: ml/hr, [place] 00 Infuse over: 8 hr, Route: IV, Dosing Weight 91.818 kg, Total Volume: 1,000, Start date: 01/15/12 0:03:00, Duration: 5 day, Stop date: 01/20/12 0:02:00 Lactated 2011-03 No Fay De [place] 1,000 mL, Memoria Ringers IV - [place] Rate: 125 l 1000 mL 06:03: ml/hr, [place] 00 Infuse over: 8 hr, Route: IV, Dosing Weight 91.818 kg, Total Volume: 1,000, Start date: 01/15/12 0:03:00, Duration: 5 day, Stop date: 01/20/12 0:02:00 Lactated 2011-03 No Fay De [place] 1,000 mL, Memoria Ringers IV - [place] Rate: 125 l 1000 mL 06:03: ml/hr, [place] 00 Infuse over: 8 hr, Route: IV, Dosing Weight 91.818 kg, Total Volume: 1,000, Start date: 01/15/12 0:03:00, Duration: 5 day, Stop date: 01/20/12 0:02:00 Lactated 2011-03 Toya De La Vega 1,000 mL, Memoria Ringers IV -13 [place] Rate: 125 l 1000 mL 06:03: ml/hr, [place] 00 Infuse over: 8 hr, Route: IV, Dosing Weight 91.818 kg, Total Volume: 1,000, Start date: 01/15/12 0:03:00, Duration: 5 day, Stop date: 01/20/12 0:02:00 morphine 2011-03 Toya De La Vega 1 mg, Rodri kg Sulfate -13 [place] Route: l 06:00: IVP, Q2H, [place] 00 Dosing Weight 91.818, kg, PRN Pain, Start date: 01/15/12 0:00:00, Duration: 30 day, Stop date: 02/13/12 23:59:00 Zofran 2011-03 No Fay M 4 mg, Memori a 1-13 [place] Route: l 06:00: IVP, Q6H, [place] 00 Dosing Weight 91.818, kg, PRN Nausea, Start date: 01/15/12 0:00:00, Duration: 30 day, Stop date: 02/13/12 23:59:00 morphine 2011-03 No Fay M 1 mg, Rodri kg Sulfate 1-13 [place] Route: l 06:00: IVP, Q2H, [place] 00 Dosing Weight 91.818, kg, PRN Pain, Start date: 01/15/12 0:00:00, Duration: 30 day, Stop date: 02/13/12 23:59:00 Zofran 2011-03 No Fay M 4 mg, Memori a 1-13 [place] Route: l 06:00: IVP, Q6H, [place] 00 Dosing Weight 91.818, kg, PRN Nausea, Start date: 01/15/12 0:00:00, Duration: 30 day, Stop date: 02/13/12 23:59:00 morphine 2011-03 No Fay M 1 mg, Rodri kg Sulfate -13 [place] Route: l 06:00: IVP, Q2H, [place] 00 Dosing Weight 91.818, kg, PRN Pain, Start date: 01/15/12 0:00:00, Duration: 30 day, Stop date: 02/13/12 23:59:00 Zofran 2011-03 No Fay M 4 mg, Memori a 1-13 [place] Route: l 06:00: IVP, Q6H, [place] 00 Dosing Weight 91.818, kg, PRN Nausea, Start date: 01/15/12 0:00:00, Duration: 30 day, Stop date: 02/13/12 23:59:00 morphine 2011-03 No Fay M 1 mg, Rodri kg Sulfate 1-13 [place] Route: l 06:00: IVP, Q2H, [place] 00 Dosing Weight 91.818, kg, PRN Pain, Start date: 01/15/12 0:00:00, Duration: 30 day, Stop date: 02/13/12 23:59:00 Zofran 2011-03 No Fay M 4 mg, Memori a 1-13 [place] Route: l 06:00: IVP, Q6H, [place] 00 Dosing Weight 91.818, kg, PRN Nausea, Start date: 01/15/12 0:00:00, Duration: 30 day, Stop date: 02/13/12 23:59:00 morphine 2011-03 No Fay M 1 mg, Rodri kg Sulfate -13 [place] Route: l 06:00: IVP, Q2H, [place] 00 Dosing Weight 91.818, kg, PRN Pain, Start date: 01/15/12 0:00:00, Duration: 30 day, Stop date: 02/13/12 23:59:00 Zofran 2011-03 No Fay M 4 mg, [facility]ori a 1-13 [place] [address]: l 06:00: IVP, Q6H, [place] 00 Dosing Weight 91.818, kg, PRN Nausea, Start date: 01/15/12 0:00:00, Duration: 30 day, Stop date: 02/13/12 23:59:00 morphine 2011-03 No Fay M 1 mg, Rodri kg Sulfate - [place] Route: l 06:00: IVP, Q2H, [place] 00 Dosing Weight 91.818, kg, PRN Pain, Start date: 01/15/12 0:00:00, Duration: 30 day, Stop date: 02/13/12 23:59:00 Zofran 2011-03 No Fay M 4 mg, Mem[facility] a 1-13 [place] [address]: l 06:00: IVP, Q6H, [place] 00 Dosing Weight 91.818, kg, PRN Nausea, Start date: 01/15/12 0:00:00, Duration: 30 day, Stop date: 02/13/12 23:59:00 morphine 2011-03 No Fay M 1 mg, Rodri kg Sulfate -13 [place] [address]: l 06:00: IVP, Q2H, [place] 00 Dosing Weight 91.818, kg, PRN Pain, Start date: 01/15/12 0:00:00, Duration: 30 day, Stop date: 02/13/12 23:59:00 Zofran 2011-03 No Fay M 4 mg, [facility] a 1-13 [place] [address]: l 06:00: IVP, Q6H, [place] 00 Dosing Weight 91.818, kg, PRN Nausea, Start date: 01/15/12 0:00:00, Duration: 30 day, Stop date: 02/13/12 23:59:00 morphine 2011-03 No Fay M 1 mg, Rodri kg Sulfate 1-13 [place] [address]: l 06:00: IVP, Q2H, [place] 00 Dosing Weight 91.818, kg, PRN Pain, Start date: 01/15/12 0:00:00, Duration: 30 day, Stop date: 02/13/12 23:59:00 Zofran 2011-03 No Fay M 4 mg, [facility] a 1-13 [place] [address]: l 06:00: IVP, Q6H, [place] 00 Dosing Weight 91.818, kg, PRN Nausea, Start date: 01/15/12 0:00:00, Duration: 30 day, Stop date: 02/13/12 23:59:00 morphine 2011-03 No Fay M 1 mg, Rodri kg Sulfate 1-13 [place] [address]: l 06:00: IVP, Q2H, [place] 00 Dosing Weight 91.818, kg, PRN Pain, Start date: 01/15/12 0:00:00, Duration: 30 day, Stop date: 02/13/12 23:59:00 Zofran 2011-03 No Fay M 4 mg, [facility] a 1-13 [place] [address]: l 06:00: IVP, Q6H, [place] 00 Dosing Weight 91.818, kg, PRN Nausea, Start date: 01/15/12 0:00:00, Duration: 30 day, Stop date: 02/13/12 23:59:00 morphine 2011-03 No Fay M 1 mg, Rodri kg Sulfate 1-13 [place] [address]: l 06:00: IVP, Q2H, [place] 00 Dosing Weight 91.818, kg, PRN Pain, Start date: 01/15/12 0:00:00, Duration: 30 day, Stop date: 02/13/12 23:59:00 Zofran 2011-03 No Fay M 4 mg, [facility] a 1-13 [place] [address]: l 06:00: IVP, Q6H, [place] 00 Dosing Weight 91.818, kg, PRN Nausea, Start date: 01/15/12 0:00:00, Duration: 30 day, Stop date: 02/13/12 23:59:00 morphine 2011- No Fay M 1 mg, Rodri kg Sulfate 1-13 [place] [address]: l 06:00: IVP, Q2H, [place] 00 Dosing Weight 91.818, kg, PRN Pain, Start date: 01/15/12 0:00:00, Duration: 30 day, Stop date: 02/13/12 23:59:00 Zofran 2011-03 No Fay M 4 mg, [facility] a 1-13 [place] [address]: l 06:00: IVP, Q6H, [place] 00 Dosing Weight 91.818, kg, PRN Nausea, Start date: 01/15/12 0:00:00, Duration: 30 day, Stop date: 02/13/12 23:59:00 morphine 2011-03 No Fay M 1 mg, Rodri kg Sulfate 1-13 [place] [address]: l 06:00: IVP, Q2H, [place] 00 Dosing Weight 91.818, kg, PRN Pain, Start date: 01/15/12 0:00:00, Duration: 30 day, Stop date: 02/13/12 23:59:00 Zofran 2011-03 No Fay M 4 mg, [facility] a 1-13 [place] [address]: l 06:00: IVP, Q6H, [place] 00 Dosing Weight 91.818, kg, PRN Nausea, Start date: 01/15/12 0:00:00, Duration: 30 day, Stop date: 02/13/12 23:59:00 morphine 2011-03 No Fay M 1 mg, Rodri kg Sulfate 1-13 [place] Route: l 06:00: IVP, Q2H, Fred 00 Dosing Weight 91.818, kg, PRN Pain, Start date: 01/15/12 0:00:00, Duration: 30 day, Stop date: 02/13/12 23:59:00 Zofran 2011-03 No Fay M 4 mg, Memori a 1-13 [place] Route: l 06:00: IVP, Q6H, Fred 00 Dosing Weight 91.818, kg, PRN Nausea, Start date: 01/15/12 0:00:00, Duration: 30 day, Stop date: 02/13/12 23:59:00 morphine 2011-03 No Fay M 1 mg, Rodri kg Sulfate 1-13 [place] Route: l 06:00: IVP, Q2H, [place] 00 Dosing Weight 91.818, kg, PRN Pain, Start date: 01/15/12 0:00:00, Duration: 30 day, Stop date: 02/13/12 23:59:00 Zofran 2011-03 No Fay M 4 mg, Memori a 1-13 [place] Route: l 06:00: IVP, Q6H, Fred 00 Dosing Weight 91.818, kg, PRN Nausea, Start date: 01/15/12 0:00:00, Duration: 30 day, Stop date: 02/13/12 23:59:00 morphine 2011-03 No Fay M 1 mg, Rodri kg Sulfate - [place] Route: l 06:00: IVP, Q2H, [place] 00 Dosing Weight 91.818, kg, PRN Pain, Start date: 01/15/12 0:00:00, Duration: 30 day, Stop date: 02/13/12 23:59:00 Zofran 2011-03 No Fay M 4 mg, Memori a 1-13 [place] Route: l 06:00: IVP, Q6H, [place] 00 Dosing Weight 91.818, kg, PRN Nausea, Start date: 01/15/12 0:00:00, Duration: 30 day, Stop date: 02/13/12 23:59:00 morphine 2011-03 No Fay M 1 mg, Rodri kg Sulfate -13 [place] Route: l 06:00: IVP, Q2H, [place] 00 Dosing Weight 91.818, kg, PRN Pain, Start date: 01/15/12 0:00:00, Duration: 30 day, Stop date: 02/13/12 23:59:00 Zofran 2011-03 No Fay M 4 mg, Memori a 1-13 [place] Route: l 06:00: IVP, Q6H, [place] 00 Dosing Weight 91.818, kg, PRN Nausea, Start date: 01/15/12 0:00:00, Duration: 30 day, Stop date: 02/13/12 23:59:00 morphine 2011-03 No Fay M 1 mg, Rodri kg Sulfate -13 [place] Route: l 06:00: IVP, Q2H, [place] 00 Dosing Weight 91.818, kg, PRN Pain, Start date: 01/15/12 0:00:00, Duration: 30 day, Stop date: 02/13/12 23:59:00 Zofran 2011-03 No Fay M 4 mg, Memori a 1-13 [place] Route: l 06:00: IVP, Q6H, [place] 00 Dosing Weight 91.818, kg, PRN Nausea, Start date: 01/15/12 0:00:00, Duration: 30 day, Stop date: 02/13/12 23:59:00 morphine 2011-03 No Fay M 1 mg, Rodri gk Sulfate - [place] Route: l 06:00: IVP, Q2H, [place] 00 Dosing Weight 91.818, kg, PRN Pain, Start date: 01/15/12 0:00:00, Duration: 30 day, Stop date: 02/13/12 23:59:00 Zofran 2011-03 No Fay M 4 mg, Memori a 1-13 [place] Route: l 06:00: IVP, Q6H, [place] 00 Dosing Weight 91.818, kg, PRN Nausea, Start date: 01/15/12 0:00:00, Duration: 30 day, Stop date: 02/13/12 23:59:00 morphine 2011-03 No Fay M 1 mg, Rodri kg Sulfate - [place] Route: l 06:00: IVP, Q2H, [place] 00 Dosing Weight 91.818, kg, PRN Pain, Start date: 01/15/12 0:00:00, Duration: 30 day, Stop date: 02/13/12 23:59:00 Zofran 2011-03 No Fay M 4 mg, Memori a 1-13 [place] Route: l 06:00: IVP, Q6H, [place] 00 Dosing Weight 91.818, kg, PRN Nausea, Start date: 01/15/12 0:00:00, Duration: 30 day, Stop date: 02/13/12 23:59:00 morphine 2011-03 No Fay M 1 mg, Rodri kg Sulfate 03-16 [facility] Route: l 06:00: IVP, Q2H, Dosing Weight 91.818, kg, PRN Pain, Start date: 01/15/12 0:00:00, Duration: 30 day, Stop date: 02/13/12 23:59:00 Zofran 2011-03 No Fay M 4 mg, Memori a 03-16 [facility] Route: l 06:00: IVP, Q6H, Dosing Weight 91.818, kg, PRN Nausea, Start date: 01/15/12 0:00:00, Duration: 30 day, Stop date: 02/13/12 23:59:00 promethazin 2011-03 No 25 mg, 1 Me moria e 25 mg 1-12 tab, PO, l oral tablet 22:02: Q4H, PRN, H [place] 20 60 tab, as needed for nausea/vom iting, Substituti on Allowed, TAB promethazin 2011-03 No 25 mg, 1 Me moria e 25 mg 1-12 tab, PO, l oral tablet 22:02: Q4H, PRN, H [place] 20 60 tab, as needed for nausea/vom iting, Substituti on Allowed, TAB promethazin 2011-03 No 25 mg, 1 Me moria e 25 mg 1-12 tab, PO, l oral tablet 22:02: Q4H, PRN, H ermann 20 60 tab, as needed for nausea/vom iting, Substituti on Allowed, TAB promethazin 2011-03 No 25 mg, 1 Me moria e 25 mg 1-12 tab, PO, l oral tablet 22:02: Q4H, PRN, H [place] 20 60 tab, as needed for nausea/vom iting, Substituti on Allowed, TAB promethazin 2011-03 No 25 mg, 1 Me moria e 25 mg 1-12 tab, PO, l oral tablet 22:02: Q4H, PRN, H [place] 20 60 tab, as needed for nausea/vom iting, Substituti on Allowed, TAB promethazin 2011-03 No 25 mg, 1 Me moria e 25 mg 1-12 tab, PO, l oral tablet 22:02: Q4H, PRN, H [place] 20 60 tab, as needed for nausea/vom iting, Substituti on Allowed, TAB promethazin 2011-03 No 25 mg, 1 Me moria e 25 mg 1-12 tab, PO, l oral tablet 22:02: Q4H, PRN, H ermann 20 60 tab, as needed for nausea/vom iting, Substituti on Allowed, TAB promethazin 2011-03 No 25 mg, 1 Me moria e 25 mg 1-12 tab, PO, l oral tablet 22:02: Q4H, PRN, H ermann 20 60 tab, as needed for nausea/vom iting, Substituti on Allowed, TAB promethazin 2011-03 No 25 mg, 1 Me moria e 25 mg 1-12 tab, PO, l oral tablet 22:02: Q4H, PRN, H [place] 20 60 tab, as needed for nausea/vom iting, Substituti on Allowed, TAB promethazin 2011-03 No 25 mg, 1 Me moria e 25 mg 1-12 tab, PO, l oral tablet 22:02: Q4H, PRN, H ermann 20 60 tab, as needed for nausea/vom iting, Substituti on Allowed, TAB promethazin 2011-03 No 25 mg, 1 Me moria e 25 mg 1-12 tab, PO, l oral tablet 22:02: Q4H, PRN, H [place] 20 60 tab, as needed for nausea/vom iting, Substituti on Allowed, TAB promethazin 2011-03 No 25 mg, 1 Me moria e 25 mg 1-12 tab, PO, l oral tablet 22:02: Q4H, PRN, H ermann 20 60 tab, as needed for nausea/vom iting, Substituti on Allowed, TAB promethazin 2011-03 No 25 mg, 1 Me moria e 25 mg 1-12 tab, PO, l oral tablet 22:02: Q4H, PRN, H ermann 20 60 tab, as needed for nausea/vom iting, Substituti on Allowed, TAB promethazin 2011-03 No 25 mg, 1 Me moria e 25 mg 1-12 tab, PO, l oral tablet 22:02: Q4H, PRN, H ermann 20 60 tab, as needed for nausea/vom iting, Substituti on Allowed, TAB promethazin 2011-03 No 25 mg, 1 Me moria e 25 mg 1-12 tab, PO, l oral tablet 22:02: Q4H, PRN, H ermann 20 60 tab, as needed for nausea/vom iting, Substituti on Allowed, TAB promethazin 2011-03 No 25 mg, 1 Me moria e 25 mg 1-12 tab, PO, l oral tablet 22:02: Q4H, PRN, H [place] 20 60 tab, as needed for nausea/vom iting, Substituti on Allowed, TAB promethazin 2011-03 No 25 mg, 1 Me moria e 25 mg 1-12 tab, PO, l oral tablet 22:02: Q4H, PRN, H [place] 20 60 tab, as needed for nausea/vom iting, Substituti on Allowed, TAB promethazin 2011-03 No 25 mg, 1 Me moria e 25 mg 1-12 tab, PO, l oral tablet 22:02: Q4H, PRN, H [place] 20 60 tab, as needed for nausea/vom iting, Substituti on Allowed, TAB promethazin 2011-03 No 25 mg, 1 Me moria e 25 mg 1-12 tab, PO, l oral tablet 22:02: Q4H, PRN, H ermann 20 60 tab, as needed for nausea/vom iting, Substituti on Allowed, TAB promethazin 2011-03 No 25 mg, 1 Me moria e 25 mg 1-12 tab, PO, l oral tablet 22:02: Q4H, PRN, H ermann 20 60 tab, as needed for nausea/vom iting, Substituti on Allowed, TAB Lomotil 2011-03 No 1 tab, PO, Rodri kg oral tablet 1-12 QID, PRN, l 22:02: for loose [place] 07 stool, Substituti on Allowed, Maintenanc e, TAB Lomotil 2011-03 No 1 tab, PO, Rodri kg oral tablet 1-12 QID, PRN, l 22:02: for loose [place] 07 stool, Substituti on Allowed, Maintenanc e, TAB Lomotil 2011-03 No 1 tab, PO, Rodri kg oral tablet 1-12 QID, PRN, l 22:02: for loose [place] 07 stool, Substituti on Allowed, Maintenanc e, TAB Lomotil 2011- No 1 tab, PO, Rodri kg oral tablet 1-12 QID, PRN, l 22:02: for loose [place] 07 stool, Substituti on Allowed, Maintenanc e, TAB Lomotil 2011- No 1 tab, PO, Rodri kg oral tablet 1-12 QID, PRN, l 22:02: for loose [place] 07 stool, Substituti on Allowed, Maintenanc e, TAB Lomotil 2011-03 No 1 tab, PO, Rodri kg oral tablet 1-12 QID, PRN, l 22:02: for loose [place] 07 stool, Substituti on Allowed, Maintenanc e, TAB Lomotil 2011-03 No 1 tab, PO, Rodri kg oral tablet 1-12 QID, PRN, l 22:02: for loose [place] 07 stool, Substituti on Allowed, Maintenanc e, TAB Lomotil 2011-03 No 1 tab, PO, Rodri kg oral tablet 1-12 QID, PRN, l 22:02: for loose [place] 07 stool, Substituti on Allowed, Maintenanc e, TAB Lomotil 2011-03 No 1 tab, PO, Rodri kg oral tablet 1-12 QID, PRN, l 22:02: for loose [place] 07 stool, Substituti on Allowed, Maintenanc e, TAB Lomotil 2011-03 No 1 tab, PO, Rodri kg oral tablet 1-12 QID, PRN, l 22:02: for loose [place] 07 stool, Substituti on Allowed, Maintenanc e, TAB Lomotil 2011-03 No 1 tab, PO, Rodri kg oral tablet 1-12 QID, PRN, l 22:02: for loose [place] 07 stool, Substituti on Allowed, Maintenanc e, TAB Lomotil 2011- No 1 tab, PO, Rodri kg oral tablet 1-12 QID, PRN, l 22:02: for loose [place] 07 stool, Substituti on Allowed, Maintenanc e, TAB Lomotil 2011-03 No 1 tab, PO, Rodri kg oral tablet 1-12 QID, PRN, l 22:02: for loose [place] 07 stool, Substituti on Allowed, Maintenanc e, TAB Lomotil 2011- No 1 tab, PO, Rodri kg oral tablet 1-12 QID, PRN, l 22:02: for loose [place] 07 stool, Substituti on Allowed, Maintenanc e, TAB Lomotil 2011-03 No 1 tab, PO, Rodri kg oral tablet -12 QID, PRN, l 22:02: for loose [place] 07 stool, Substituti on Allowed, Maintenanc e, TAB Lomotil 2011-03 No 1 tab, PO, Rodri kg oral tablet -12 QID, PRN, l 22:02: for loose [place] 07 stool, Substituti on Allowed, Maintenanc e, TAB Lomotil 2011-03 No 1 tab, PO, Rodri kg oral tablet -12 QID, PRN, l 22:02: for loose [place] 07 stool, Substituti on Allowed, Maintenanc e, TAB Lomotil 2011-03 No 1 tab, PO, Rodri kg oral tablet -12 QID, PRN, l 22:02: for loose [place] 07 stool, Substituti on Allowed, Maintenanc e, TAB Lomotil 2011-03 No 1 tab, PO, Rodri kg oral tablet -12 QID, PRN, l 22:02: for loose [place] 07 stool, Substituti on Allowed, Maintenanc e, TAB Lomotil 2011-03 No 1 tab, PO, Rodri kg oral tablet -12 QID, PRN, l 22:02: for loose [place] 07 stool, Substituti on Allowed, Maintenanc e, TAB influenza 2011-03 No [place] 0.5 mL, Me moria virus 03-15 [facility] Route: IM, l vaccine, 21:30: [facility] Drug Form: He rmann inactivated 00 INJ, ONCE, Start date: 01/14/12 15:30:00, Stop date: 01/14/12 15:30:00 influenza 2011-03 No Crystal 0.5 mL, Me moria virus 03-15 [place] Route: IM, l vaccine, 21:30: [facility] Drug Form: He rmann inactivated 00 INJ, ONCE, Start date: 01/14/12 15:30:00, Stop date: 01/14/12 15:30:00 influenza 2011- No [place] 0.5 mL, Me moria virus 1-12 [place] Route: IM, l vaccine, 21:30: [facility] Drug Form: He rmann inactivated 00 INJ, ONCE, Start date: 01/14/12 15:30:00, Stop date: 01/14/12 15:30:00 influenza 2011- No [place] 0.5 mL, Me moria virus 1-12 [place] Route: IM, l vaccine, 21:30: [facility] Drug Form: He rmann inactivated 00 INJ, ONCE, Start date: 01/14/12 15:30:00, Stop date: 01/14/12 15:30:00 influenza 2011- No Crystal 0.5 mL, Me moria virus 1-12 [place] Route: IM, l vaccine, 21:30: [facility] Drug Form: He rmann inactivated 00 INJ, ONCE, Start date: 01/14/12 15:30:00, Stop date: 01/14/12 15:30:00 influenza 2011-03 No [place] 0.5 mL, Me moria virus 1-12 [place] Route: IM, l vaccine, 21:30: [facility] Drug Form: He rmann inactivated 00 INJ, ONCE, Start date: 01/14/12 15:30:00, Stop date: 01/14/12 15:30:00 influenza 2011- No Crystal 0.5 mL, Me moria virus 1-12 [place] Route: IM, l vaccine, 21:30: [facility] Drug Form: He rmann inactivated 00 INJ, ONCE, Start date: 01/14/12 15:30:00, Stop date: 01/14/12 15:30:00 influenza 2011- No Crystal 0.5 mL, Me moria virus 1-12 [place] Route: IM, l vaccine, 21:30: [facility] Drug Form: He rmann inactivated 00 INJ, ONCE, Start date: 01/14/12 15:30:00, Stop date: 01/14/12 15:30:00 influenza 2011- No [place] 0.5 mL, Me moria virus 1-12 [place] Route: IM, l vaccine, 21:30: [facility] Drug Form: He rmann inactivated 00 INJ, ONCE, Start date: 01/14/12 15:30:00, Stop date: 01/14/12 15:30:00 influenza 2012- No Crystal 0.5 mL, Me moria virus 1-12 [place] Route: IM, l vaccine, 21:30: [facility] Drug Form: He rmann inactivated 00 INJ, ONCE, Start date: 01/14/12 15:30:00, Stop date: 01/14/12 15:30:00 influenza 2011- No [place] 0.5 mL, Me moria virus 1-12 [place] Route: IM, l vaccine, 21:30: [facility] Drug Form: He rmann inactivated 00 INJ, ONCE, Start date: 01/14/12 15:30:00, Stop date: 01/14/12 15:30:00 influenza 2011- No [place] 0.5 mL, Me moria virus 1-12 [place] Route: IM, l vaccine, 21:30: [facility] Drug Form: He rmann inactivated 00 INJ, ONCE, Start date: 01/14/12 15:30:00, Stop date: 01/14/12 15:30:00 influenza 2011- No [place] 0.5 mL, Me moria virus 1-12 [place] Route: IM, l vaccine, 21:30: [facility] Drug Form: He rmann inactivated 00 INJ, ONCE, Start date: 01/14/12 15:30:00, Stop date: 01/14/12 15:30:00 influenza 2011- No [place] 0.5 mL, Me moria virus 1-12 [place] Route: IM, l vaccine, 21:30: [facility] Drug Form: He rmann inactivated 00 INJ, ONCE, Start date: 01/14/12 15:30:00, Stop date: 01/14/12 15:30:00 influenza 2011- No [place] 0.5 mL, Me moria virus 1-12 [place] Route: IM, l vaccine, 21:30: [facility] Drug Form: He rmann inactivated 00 INJ, ONCE, Start date: 01/14/12 15:30:00, Stop date: 01/14/12 15:30:00 influenza 2011- No Crystal 0.5 mL, Me moria virus 1-12 [place] Route: IM, l vaccine, 21:30: [facility] Drug Form: He rmann inactivated 00 INJ, ONCE, Start date: 01/14/12 15:30:00, Stop date: 01/14/12 15:30:00 influenza 2011-03 No Crystal 0.5 mL, Me moria virus 1-12 [place] Route: IM, l vaccine, 21:30: [facility] Drug Form: He rmann inactivated 00 INJ, ONCE, Start date: 01/14/12 15:30:00, Stop date: 01/14/12 15:30:00 influenza 2011-03 No Crystal 0.5 mL, Me moria virus -12 [facility] Route: IM, l vaccine, 21:30: [facility] Drug Form: He rmann inactivated 00 INJ, ONCE, Start date: 01/14/12 15:30:00, Stop date: 01/14/12 15:30:00 influenza 2011-03 No Crystal 0.5 mL, Me moria virus 1-12 [facility] Route: IM, l vaccine, 21:30: [facility] Drug Form: He rmann inactivated 00 INJ, ONCE, Start date: 01/14/12 15:30:00, Stop date: 01/14/12 15:30:00 influenza 2011-03 No [place] 0.5 mL, Me moria virus 03-15 [place] Route: IM, l vaccine, 21:30: [facility] Form: He rmann inactivated 00 INJ, ONCE, Start date: 01/14/12 15:30:00, Stop date: 01/14/12 15:30:00 NS (Bolus) 2011-03 No [place] 1,000 mL, Memoria IV 1,000 mL 03-15 [facility] Rate: l 19:07: Annmarie 1,000 Fred 00 ml/hr, Infuse over: 1 hr, Route: IV, kg, Total Volume: 1,000, Priority: STAT, Start date: 01/14/12 13:07:00, Duration: 1 doses or times, Stop date: 01/14/12 14:06:00, Bolus DoseBolus Dose NS (Bolus) 2011-03 No [place] 1,000 mL, Memoria IV 1,000 mL 03-15 [place] Rate: l 19:07: Annmarie 1,000 [place] 00 ml/hr, Infuse over: 1 hr, Route: IV, kg, Total Volume: 1,000, Priority: STAT, Start date: 01/14/12 13:07:00, Duration: 1 doses or times, Stop date: 01/14/12 14:06:00, Bolus DoseBolus Dose NS (Bolus) 2011-03 No [place] 1,000 mL, Memoria IV 1,000 mL 1-12 [place] Rate: l 19:07: Annmarie 1,000 Fred 00 ml/hr, Infuse over: 1 hr, Route: IV, kg, Total Volume: 1,000, Priority: STAT, Start date: 01/14/12 13:07:00, Duration: 1 doses or times, Stop date: 01/14/12 14:06:00, Bolus DoseBolus Dose NS (Bolus) 2011-03 No [place] 1,000 mL, Memoria IV 1,000 mL 1-12 [place] Rate: l 19:07: Annmarie 1,000 Fred 00 ml/hr, Infuse over: 1 hr, Route: IV, kg, Total Volume: 1,000, Priority: STAT, Start date: 01/14/12 13:07:00, Duration: 1 doses or times, Stop date: 01/14/12 14:06:00, Bolus DoseBolus Dose NS (Bolus) 2011-03 No [place] 1,000 mL, Memoria IV 1,000 mL 1-12 [place] Rate: l 19:07: Annmarie 1,000 [place] 00 ml/hr, Infuse over: 1 hr, Route: IV, kg, Total Volume: 1,000, Priority: STAT, Start date: 01/14/12 13:07:00, Duration: 1 doses or times, Stop date: 01/14/12 14:06:00, Bolus DoseBolus Dose NS (Bolus) 2011-03 No [place] 1,000 mL, Memoria IV 1,000 mL 1-12 [place] Rate: l 19:07: Annmarie 1,000 [place] 00 ml/hr, Infuse over: 1 hr, Route: IV, kg, Total Volume: 1,000, Priority: STAT, Start date: 01/14/12 13:07:00, Duration: 1 doses or times, Stop date: 01/14/12 14:06:00, Bolus DoseBolus Dose NS (Bolus) 2011-03 No [place] 1,000 mL, Memoria IV 1,000 mL 1-12 [place] Rate: l 19:07: Annmarie 1,000 [place] 00 ml/hr, Infuse over: 1 hr, Route: IV, kg, Total Volume: 1,000, Priority: STAT, Start date: 01/14/12 13:07:00, Duration: 1 doses or times, Stop date: 01/14/12 14:06:00, Bolus DoseBolus Dose NS (Bolus) 2011-03 No [place] 1,000 mL, Memoria IV 1,000 mL 1-12 [place] Rate: l 19:07: Annmarie 1,000 [place] 00 ml/hr, Infuse over: 1 hr, Route: IV, kg, Total Volume: 1,000, Priority: STAT, Start date: 01/14/12 13:07:00, Duration: 1 doses or times, Stop date: 01/14/12 14:06:00, Bolus DoseBolus Dose NS (Bolus) 2011-03 No [place] 1,000 mL, Memoria IV 1,000 mL 1-12 [place] Rate: l 19:07: Annmarie 1,000 [place] 00 ml/hr, Infuse over: 1 hr, Route: IV, kg, Total Volume: 1,000, Priority: STAT, Start date: 01/14/12 13:07:00, Duration: 1 doses or times, Stop date: 01/14/12 14:06:00, Bolus DoseBolus Dose NS (Bolus) 2011-03 No [place] 1,000 mL, Memoria IV 1,000 mL 1-12 [place] Rate: l 19:07: Annmarie 1,000 [place] 00 ml/hr, Infuse over: 1 hr, Route: IV, kg, Total Volume: 1,000, Priority: STAT, Start date: 01/14/12 13:07:00, Duration: 1 doses or times, Stop date: 01/14/12 14:06:00, Bolus DoseBolus Dose NS (Bolus) 2011-03 No [place] 1,000 mL, Memoria IV 1,000 mL 1-12 [place] Rate: l 19:07: Annmarie 1,000 [place] 00 ml/hr, Infuse over: 1 hr, Route: IV, kg, Total Volume: 1,000, Priority: STAT, Start date: 01/14/12 13:07:00, Duration: 1 doses or times, Stop date: 01/14/12 14:06:00, Bolus DoseBolus Dose NS (Bolus) 2011-03 No Crystal 1,000 mL, Memoria IV 1,000 mL 1-12 [place] Rate: l 19:07: Annmarie 1,000 [place] 00 ml/hr, Infuse over: 1 hr, Route: IV, kg, Total Volume: 1,000, Priority: STAT, Start date: 01/14/12 13:07:00, Duration: 1 doses or times, Stop date: 01/14/12 14:06:00, Bolus DoseBolus Dose NS (Bolus) 2011-03 No [place] 1,000 mL, Memoria IV 1,000 mL -12 [facility] Rate: l 19:07: Annmarie 1,000 [place] 00 ml/hr, Infuse over: 1 hr, Route: IV, kg, Total Volume: 1,000, Priority: STAT, Start date: 01/14/12 13:07:00, Duration: 1 doses or times, Stop date: 01/14/12 14:06:00, Bolus DoseBolus Dose NS (Bolus) 2011-03 No [place] 1,000 mL, Memoria IV 1,000 mL -12 [facility] Rate: l 19:07: Annmarie 1,000 [place] 00 ml/hr, Infuse over: 1 hr, Route: IV, kg, Total Volume: 1,000, Priority: STAT, Start date: 01/14/12 13:07:00, Duration: 1 doses or times, Stop date: 01/14/12 14:06:00, Bolus DoseBolus Dose NS (Bolus) 2011-03 No [place] 1,000 mL, Memoria IV 1,000 mL -12 [facility] Rate: l 19:07: Annmarie 1,000 [place] 00 ml/hr, Infuse over: 1 hr, Route: IV, kg, Total Volume: 1,000, Priority: STAT, Start date: 01/14/12 13:07:00, Duration: 1 doses or times, Stop date: 01/14/12 14:06:00, Bolus DoseBolus Dose NS (Bolus) 2011-03 No [place] 1,000 mL, Memoria IV 1,000 mL 1-12 [place] Rate: l 19:07: Annmarie 1,000 [place] 00 ml/hr, Infuse over: 1 hr, Route: IV, kg, Total Volume: 1,000, Priority: STAT, Start date: 01/14/12 13:07:00, Duration: 1 doses or times, Stop date: 01/14/12 14:06:00, Bolus DoseBolus Dose NS (Bolus) 2011-03 No [place] 1,000 mL, Memoria IV 1,000 mL 1-12 [facility] Rate: l 19:07: Annmarie 1,000 [place] 00 ml/hr, Infuse over: 1 hr, Route: IV, kg, Total Volume: 1,000, Priority: STAT, Start date: 01/14/12 13:07:00, Duration: 1 doses or times, Stop date: 01/14/12 14:06:00, Bolus DoseBolus Dose NS (Bolus) 2011-03 No Crystal 1,000 mL, Memoria IV 1,000 mL 1-12 [facility] Rate: l 19:07: Annmarie 1,000 [place] 00 ml/hr, Infuse over: 1 hr, Route: IV, kg, Total Volume: 1,000, Priority: STAT, Start date: 01/14/12 13:07:00, Duration: 1 doses or times, Stop date: 01/14/12 14:06:00, Bolus DoseBolus Dose NS (Bolus) 2011-03 No Crystal 1,000 mL, Memoria IV 1,000 mL 1-12 [facility] Rate: l 19:07: Annmarie 1,000 [place] 00 ml/hr, Infuse over: 1 hr, Route: IV, kg, Total Volume: 1,000, Priority: STAT, Start date: 01/14/12 13:07:00, Duration: 1 doses or times, Stop date: 01/14/12 14:06:00, Bolus DoseBolus Dose NS (Bolus) 2011-03 No Crystal 1,000 mL, Memoria IV 1,000 mL 1-12 [facility] Rate: l 19:07: Annmarie 1,000 [place] 00 ml/hr, Infuse over: 1 hr, Route: IV, kg, Total Volume: 1,000, Priority: STAT, Start date: 01/14/12 13:07:00, Duration: 1 doses or times, Stop date: 01/14/12 14:06:00, Bolus DoseBolus Dose morphine 2011-03 No Crystal 2 mg, 1 Mem oria Sulfate 1-12 [facility] mL, Route: l 19:06: Annmarie IVP, Drug Fred 00 form: INJ, Q3H, Dosing Weight 91.818, kg, PRN Pain, Start date: 01/14/12 13:06:00, Duration: 30 day, Stop date: 02/13/12 13:05:00 morphine 2011-03 No Crystal 2 mg, 1 Mem oria Sulfate 1-12 [facility] mL, Route: l 19:06: Annmarie IVP, Drug [place] 00 form: INJ, Q3H, Dosing Weight 91.818, kg, PRN Pain, Start date: 01/14/12 13:06:00, Duration: 30 day, Stop date: 02/13/12 13:05:00 morphine 2011-03 No Crystal 2 mg, 1 Mem oria Sulfate 1-12 [facility] mL, Route: l 19:06: Annmarie IVP, Drug Fred 00 form: INJ, Q3H, Dosing Weight 91.818, kg, PRN Pain, Start date: 01/14/12 13:06:00, Duration: 30 day, Stop date: 02/13/12 13:05:00 morphine 2011-03 No Crystal 2 mg, 1 Mem oria Sulfate 1-12 [facility] mL, Route: l 19:06: Annmarie IVP, Drug [place] 00 form: INJ, Q3H, Dosing Weight 91.818, kg, PRN Pain, Start date: 01/14/12 13:06:00, Duration: 30 day, Stop date: 02/13/12 13:05:00 morphine 2011-03 No Crystal 2 mg, 1 Mem oria Sulfate 1-12 [facility] mL, Route: l 19:06: Annmarie IVP, Drug Fred 00 form: INJ, Q3H, Dosing Weight 91.818, kg, PRN Pain, Start date: 01/14/12 13:06:00, Duration: 30 day, Stop date: 02/13/12 13:05:00 morphine 2011-03 No Crystal 2 mg, 1 Mem oria Sulfate 1-12 [facility] mL, Route: l 19:06: Annmarie IVP, Drug [place] 00 form: INJ, Q3H, Dosing Weight 91.818, kg, PRN Pain, Start date: 01/14/12 13:06:00, Duration: 30 day, Stop date: 02/13/12 13:05:00 morphine 2011-03 No Crystal 2 mg, 1 Mem oria Sulfate 1-12 [facility] mL, Route: l 19:06: Annmarie IVP, Drug [place] 00 form: INJ, Q3H, Dosing Weight 91.818, kg, PRN Pain, Start date: 01/14/12 13:06:00, Duration: 30 day, Stop date: 02/13/12 13:05:00 morphine 2011-03 No Crystal 2 mg, 1 Mem oria Sulfate 1-12 Chasity mL, Route: l 19:06: [facility], [facility] [place] 00 form: INJ, Q3H, Dosing Weight 91.818, kg, PRN Pain, Start date: 01/14/12 13:06:00, Duration: 30 day, Stop date: 02/13/12 13:05:00 morphine 2011-03 No Crystal 2 mg, 1 Mem oria Sulfate 1-12 Chasity mL, Route: l 19:06: [facility], [facility] [place] 00 form: INJ, Q3H, Dosing Weight 91.818, kg, PRN Pain, Start date: 01/14/12 13:06:00, Duration: 30 day, Stop date: 02/13/12 13:05:00 morphine 2011-03 No Crystal 2 mg, 1 Mem oria Sulfate 1-12 Chasity mL, Route: l 19:06: [facility], [facility] [place] 00 form: INJ, Q3H, Dosing Weight 91.818, kg, PRN Pain, Start date: 01/14/12 13:06:00, Duration: 30 day, Stop date: 02/13/12 13:05:00 morphine 2011-03 No Crystal 2 mg, 1 Mem oria Sulfate 1-12 Chasity mL, Route: l 19:06: [facility] IVP, [facility] [place] 00 form: INJ, Q3H, Dosing Weight 91.818, kg, PRN Pain, Start date: 01/14/12 13:06:00, Duration: 30 day, Stop date: 02/13/12 13:05:00 morphine 2011-03 No Crystal 2 mg, 1 Mem oria Sulfate 1-12 Chasity mL, Route: l 19:06: [facility], [facility] [place] 00 form: INJ, Q3H, Dosing Weight 91.818, kg, PRN Pain, Start date: 01/14/12 13:06:00, Duration: 30 day, Stop date: 02/13/12 13:05:00 morphine 2011- No Crystal 2 mg, 1 Mem oria Sulfate 1-12 Ch[place]ity mL, Route: l 19:06: [facility], [facility] [place] 00 form: INJ, Q3H, Dosing Weight 91.818, kg, PRN Pain, Start date: 01/14/12 13:06:00, Duration: 30 day, Stop date: 02/13/12 13:05:00 morphine 2011- No Crystal 2 mg, 1 Mem oria Sulfate 1-12 Chasity mL, Route: l 19:06: [facility], [facility] [place] 00 form: INJ, Q3H, Dosing Weight 91.818, kg, PRN Pain, Start date: 01/14/12 13:06:00, Duration: 30 day, Stop date: 02/13/12 13:05:00 morphine 2011-03 No Crystal 2 mg, 1 Mem oria Sulfate 1-12 Chasity mL, Route: l 19:06: [facility], [facility] [place] 00 form: INJ, Q3H, Dosing Weight 91.818, kg, PRN Pain, Start date: 01/14/12 13:06:00, Duration: 30 day, Stop date: 02/13/12 13:05:00 morphine 2011-03 No Crystal 2 mg, 1 Mem oria Sulfate 1-12 Chasity mL, Route: l 19:06: [facility] IV[facility], [facility] [place] 00 form: INJ, Q3H, Dosing Weight 91.818, kg, PRN Pain, Start date: 01/14/12 13:06:00, Duration: 30 day, Stop date: 02/13/12 13:05:00 morphine 2011-03 No Crystal 2 mg, 1 Mem oria Sulfate 1-12 Chasity mL, Route: l 19:06: [facility] IV[facility], [facility] [place] 00 form: INJ, Q3H, Dosing Weight 91.818, kg, PRN Pain, Start date: 01/14/12 13:06:00, Duration: 30 day, Stop date: 02/13/12 13:05:00 morphine 2011-03 No Crystal 2 mg, 1 Mem oria Sulfate 1-12 Chasity mL, Route: l 19:06: [facility] IVP, [facility] [place] 00 form: INJ, Q3H, Dosing Weight 91.818, kg, PRN Pain, Start date: 01/14/12 13:06:00, Duration: 30 day, Stop date: 02/13/12 13:05:00 morphine 2011- No Crystal 2 mg, 1 Mem oria Sulfate 1-12 Chasity mL, Route: l 19:06: Annmarie IVP, Drug [place] 00 form: INJ, Q3H, Dosing Weight 91.818, kg, PRN Pain, Start date: 01/14/12 13:06:00, Duration: 30 day, Stop date: 02/13/12 13:05:00 morphine 2011-03 No Crystal 2 mg, 1 Mem oria Sulfate 1-12 Chasity mL, Route: l 19:06: Annmarie IVP, Drug [place] 00 form: INJ, Q3H, Dosing Weight 91.818, kg, PRN Pain, Start date: 01/14/12 13:06:00, Duration: 30 day, Stop date: 02/13/12 13:05:00 D5NS + KCL 2011-03 No Hilary 1,000 mL, M emoria 20mEq/L 1-12 Fay Rate: 125 l 1000ml 19:04: Yepez ml/hr, [place] (Premix) 00 Infuse 1,000 mL over: 8 hr, Route: IV, kg, Total Volume: 1,000, Start date: 01/14/12 13:04:00, Duration: 30 day, Stop date: 02/13/12 13:03:00 D5NS + KCL 2011-03 No Hilary 1,000 mL, M emoria 20mEq/L 1-12 Fay Rate: 125 l 1000ml 19:04: Yepez ml/hr, [place] (Premix) 00 Infuse 1,000 mL over: 8 hr, Route: IV, kg, Total Volume: 1,000, Start date: 01/14/12 13:04:00, Duration: 30 day, Stop date: 02/13/12 13:03:00 D5NS + KCL 2011-03 No Hilary 1,000 mL, M emoria 20mEq/L 1-12 Fay Rate: 125 l 1000ml 19:04: Yepez ml/hr, [place] (Premix) 00 Infuse 1,000 mL over: 8 hr, Route: IV, kg, Total Volume: 1,000, Start date: 01/14/12 13:04:00, Duration: 30 day, Stop date: 02/13/12 13:03:00 D5NS + KCL 2011-03 No Hilary 1,000 mL, M emoria 20mEq/L 1-12 Fay Rate: 125 l 1000ml 19:04: Yepez ml/hr, [place] (Premix) 00 Infuse 1,000 mL over: 8 hr, Route: IV, kg, Total Volume: 1,000, Start date: 01/14/12 13:04:00, Duration: 30 day, Stop date: 02/13/12 13:03:00 D5NS + KCL 2011-03 No Hilary 1,000 mL, M emoria 20mEq/L 1-12 Fay Rate: 125 l 1000ml 19:04: Yepez ml/hr, [place] (Premix) 00 Infuse 1,000 mL over: 8 hr, Route: IV, kg, Total Volume: 1,000, Start date: 01/14/12 13:04:00, Duration: 30 day, Stop date: 02/13/12 13:03:00 D5NS + KCL 2011-03 No Hilary 1,000 mL, M emoria 20mEq/L 1-12 Fay Rate: 125 l 1000ml 19:04: Yepez ml/hr, [place] (Premix) 00 Infuse 1,000 mL over: 8 hr, Route: IV, kg, Total Volume: 1,000, Start date: 01/14/12 13:04:00, Duration: 30 day, Stop date: 02/13/12 13:03:00 D5NS + KCL 2011-03 No Hilary 1,000 mL, M emoria 20mEq/L 1-12 Fay Rate: 125 l 1000ml 19:04: Yepez ml/hr, [place] (Premix) 00 Infuse 1,000 mL over: 8 hr, Route: IV, kg, Total Volume: 1,000, Start date: 01/14/12 13:04:00, Duration: 30 day, Stop date: 02/13/12 13:03:00 D5NS + KCL 2011-03 No Hilary 1,000 mL, M emoria 20mEq/L 1-12 Fay Rate: 125 l 1000ml 19:04: Ypeez ml/hr, [place] (Premix) 00 Infuse 1,000 mL over: 8 hr, Route: IV, kg, Total Volume: 1,000, Start date: 01/14/12 13:04:00, Duration: 30 day, Stop date: 02/13/12 13:03:00 D5NS + KCL 2011-03 No Hilary 1,000 mL, M emoria 20mEq/L 1-12 Fay Rate: 125 l 1000ml 19:04: Yepez ml/hr, [place] (Premix) 00 Infuse 1,000 mL over: 8 hr, Route: IV, kg, Total Volume: 1,000, Start date: 01/14/12 13:04:00, Duration: 30 day, Stop date: 02/13/12 13:03:00 D5NS + KCL 2011-03 No Hilary 1,000 mL, M emoria 20mEq/L 112 Fay Rate: 125 l 1000ml 19:04: Yepez ml/hr, [place] (Premix) 00 Infuse 1,000 mL over: 8 hr, Route: IV, kg, Total Volume: 1,000, Start date: 01/14/12 13:04:00, Duration: 30 day, Stop date: 02/13/12 13:03:00 D5NS + KCL 2011-03 No Hilary 1,000 mL, M emoria 20mEq/L 112 Fay Rate: 125 l 1000ml 19:04: Yepez ml/hr, [place] (Premix) 00 Infuse 1,000 mL over: 8 hr, Route: IV, kg, Total Volume: 1,000, Start date: 01/14/12 13:04:00, Duration: 30 day, Stop date: 02/13/12 13:03:00 D5NS + KCL 2011-03 No Hilary 1,000 mL, M emoria 20mEq/L 112 Fay Rate: 125 l 1000ml 19:04: Yepez ml/hr, [place] (Premix) 00 Infuse 1,000 mL over: 8 hr, Route: IV, kg, Total Volume: 1,000, Start date: 01/14/12 13:04:00, Duration: 30 day, Stop date: 02/13/12 13:03:00 D5NS + KCL 2011-03 No Hilary 1,000 mL, M emoria 20mEq/L 1-12 Fay Rate: 125 l 1000ml 19:04: Yepze ml/hr, [place] (Premix) 00 Infuse 1,000 mL over: 8 hr, Route: IV, kg, Total Volume: 1,000, Start date: 01/14/12 13:04:00, Duration: 30 day, Stop date: 02/13/12 13:03:00 D5NS + KCL 2011-03 No Hilary 1,000 mL, M emoria 20mEq/L 1-12 Fay Rate: 125 l 1000ml 19:04: Yepez ml/hr, [place] (Premix) 00 Infuse 1,000 mL over: 8 hr, Route: IV, kg, Total Volume: 1,000, Start date: 01/14/12 13:04:00, Duration: 30 day, Stop date: 02/13/12 13:03:00 D5NS + KCL 2011-03 No Hilary 1,000 mL, M emoria 20mEq/L 1-12 Fay Rate: 125 l 1000ml 19:04: Yepez ml/hr, [place] (Premix) 00 Infuse 1,000 mL over: 8 hr, Route: IV, kg, Total Volume: 1,000, Start date: 01/14/12 13:04:00, Duration: 30 day, Stop date: 02/13/12 13:03:00 D5NS + KCL 2011-03 No Hilary 1,000 mL, M emoria 20mEq/L 1-12 Fay Rate: 125 l 1000ml 19:04: Yepez ml/hr, [place] (Premix) 00 Infuse 1,000 mL over: 8 hr, Route: IV, kg, Total Volume: 1,000, Start date: 01/14/12 13:04:00, Duration: 30 day, Stop date: 02/13/12 13:03:00 D5NS + KCL 2011-03 No Hilary 1,000 mL, M emoria 20mEq/L 1-12 Fay Rate: 125 l 1000ml 19:04: Yepez ml/hr, [place] (Premix) 00 Infuse 1,000 mL over: 8 hr, Route: IV, kg, Total Volume: 1,000, Start date: 01/14/12 13:04:00, Duration: 30 day, Stop date: 02/13/12 13:03:00 D5NS + KCL 2011-03 No Hilary 1,000 mL, M emoria 20mEq/L 1-12 Fay Rate: 125 l 1000ml 19:04: Yepez ml/hr, [place] (Premix) 00 Infuse 1,000 mL over: 8 hr, Route: IV, kg, Total Volume: 1,000, Start date: 01/14/12 13:04:00, Duration: 30 day, Stop date: 02/13/12 13:03:00 D5NS + KCL 2011-03 No Hilary 1,000 mL, M emoria 20mEq/L 1-12 Fay Rate: 125 l 1000ml 19:04: Yepez ml/hr, [place] (Premix) 00 Infuse 1,000 mL over: 8 hr, Route: IV, kg, Total Volume: 1,000, Start date: 01/14/12 13:04:00, Duration: 30 day, Stop date: 02/13/12 13:03:00 D5NS + KCL 2011-03 No Hilary 1,000 mL, M emoria 20mEq/L 112 Fay Rate: 125 l 1000ml 19:04: Yepez ml/hr, [place] (Premix) 00 Infuse 1,000 mL over: 8 hr, Route: IV, kg, Total Volume: 1,000, Start date: 01/14/12 13:04:00, Duration: 30 day, Stop date: 02/13/12 13:03:00 influenza 2011-03 No SYSTEM 0.5 mL, Mem oria virus 03-15 SYSTEM Route: IM, l vaccine, 18:50: ONCALL, Nitesh n inactivated 53 Start date: 01/14/12 12:50:53, Stop date: 02/13/12 12:45:53 influenza 2011-03 No SYSTEM 0.5 mL, Mem oria virus -12 SYSTEM Route: IM, l vaccine, 18:50: ONCALL, Nitesh n inactivated 53 Start date: 01/14/12 12:50:53, Stop date: 02/13/12 12:45:53 influenza 2011-03 No SYSTEM 0.5 mL, Mem oria virus 12 SYSTEM Route: IM, l vaccine, 18:50: ONCALL, Nitesh n inactivated 53 Start date: 01/14/12 12:50:53, Stop date: 02/13/12 12:45:53 influenza 2011-03 No SYSTEM 0.5 mL, Mem oria virus 03-15 SYSTEM Route: IM, l vaccine, 18:50: ONCALL, Nitesh n inactivated 53 Start date: 01/14/12 12:50:53, Stop date: 02/13/12 12:45:53 influenza 2011-03 No SYSTEM 0.5 mL, Mem oria virus 03-15 SYSTEM Route: IM, l vaccine, 18:50: ONCALL, Nitesh n inactivated 53 Start date: 01/14/12 12:50:53, Stop date: 02/13/12 12:45:53 influenza 2011-03 No SYSTEM 0.5 mL, Mem oria virus 03-15 SYSTEM Route: IM, l vaccine, 18:50: ONCALL, Nitesh n inactivated 53 Start date: 01/14/12 12:50:53, Stop date: 02/13/12 12:45:53 influenza 2011-03 No SYSTEM 0.5 mL, Mem oria virus 03-15 SYSTEM Route: IM, l vaccine, 18:50: ONCALL, Nitesh n inactivated 53 Start date: 01/14/12 12:50:53, Stop date: 02/13/12 12:45:53 influenza 2011-03 No SYSTEM 0.5 mL, Mem oria virus 03-15 SYSTEM Route: IM, l vaccine, 18:50: ONCALL, Nitesh n inactivated 53 Start date: 01/14/12 12:50:53, Stop date: 02/13/12 12:45:53 influenza 2011-03 No SYSTEM 0.5 mL, Mem oria virus 03-15 SYSTEM Route: IM, l vaccine, 18:50: ONCALL, Nitesh n inactivated 53 Start date: 01/14/12 12:50:53, Stop date: 02/13/12 12:45:53 influenza 2011-03 No SYSTEM 0.5 mL, Mem oria virus 03-15 SYSTEM Route: IM, l vaccine, 18:50: ONCALL, Nitesh n inactivated 53 Start date: 01/14/12 12:50:53, Stop date: 02/13/12 12:45:53 influenza 2011-03 No SYSTEM 0.5 mL, Mem oria virus 03-15 SYSTEM Route: IM, l vaccine, 18:50: ONCALL, Nitesh n inactivated 53 Start date: 01/14/12 12:50:53, Stop date: 02/13/12 12:45:53 influenza 2011- No SYSTEM 0.5 mL, Mem oria virus 03-15 SYSTEM Route: IM, l vaccine, 18:50: ONCALL, Nitesh n inactivated 53 Start date: 01/14/12 12:50:53, Stop date: 02/13/12 12:45:53 influenza 2011-03 No SYSTEM 0.5 mL, Mem oria virus 03-15 SYSTEM Route: IM, l vaccine, 18:50: ONCALL, Nitesh n inactivated 53 Start date: 01/14/12 12:50:53, Stop date: 02/13/12 12:45:53 influenza 2011-03 No SYSTEM 0.5 mL, Mem oria virus 03-15 SYSTEM Route: IM, l vaccine, 18:50: ONCALL, Nitesh n inactivated 53 Start date: 01/14/12 12:50:53, Stop date: 02/13/12 12:45:53 influenza 2011-03 No SYSTEM 0.5 mL, Mem oria virus 03-15 SYSTEM Route: IM, l vaccine, 18:50: ONCALL, Nitesh n inactivated 53 Start date: 01/14/12 12:50:53, Stop date: 02/13/12 12:45:53 influenza 2011-03 No SYSTEM 0.5 mL, Mem oria virus 03-15 SYSTEM Route: IM, l vaccine, 18:50: ONCALL, Nitesh n inactivated 53 Start date: 01/14/12 12:50:53, Stop date: 02/13/12 12:45:53 influenza 2011-03 No SYSTEM 0.5 mL, Mem oria virus 03-15 SYSTEM Route: IM, l vaccine, 18:50: ONCALL, Nitesh n inactivated 53 Start date: 01/14/12 12:50:53, Stop date: 02/13/12 12:45:53 influenza 2011-03 No SYSTEM 0.5 mL, Mem oria virus 03-15 SYSTEM Route: IM, l vaccine, 18:50: ONCALL, Nitesh n inactivated 53 Start date: 01/14/12 12:50:53, Stop date: 02/13/12 12:45:53 influenza 2011-03 No SYSTEM 0.5 mL, Mem oria virus 1-12 SYSTEM Route: IM, l vaccine, 18:50: Justin CHANDLERan n inactivated 53 Start date: 01/14/12 12:50:53, Stop date: 02/13/12 12:45:53 influenza 2011-03 No SYSTEM 0.5 mL, Mem oria virus 1-12 SYSTEM Route: IM, l vaccine, 18:50: ONCALLJustinan n inactivated 53 Start date: 01/14/12 12:50:53, Stop date: 02/13/12 12:45:53 Saline 2011-03 No Crystal 5 ml, Memoria Flush 0.9% 12 Chasity Route: l 18:28: Annmarie IVP, Drug [place] 00 Form: INJ, Dosing Weight 91.818, kg, PRN, PRN Line Flush, Start date: 01/14/12 12:28:00, Duration: 30 day, Stop date: 02/13/12 12:27:00 ondansetron 2011-03 No Crystal 4 mg, 2 Memoria 1-12 Chasity mL, Route: l 18:28: Annmarie IVP, Drug [place] 00 form: INJ, Q6H, Dosing Weight 91.818, kg, PRN Nausea & Vomiting, Start date: 01/14/12 12:28:00, Duration: 30 day, Stop date: 02/13/12 12:27:00 Sodium 2011-03 No Crystal 1,000 mL, Mem oria Chloride -12 Chasity Rate: 125 l 0.9% IV 18:28: Annmarie ml/hr, [place] 1,000 mL 00 Infuse over: 8 hr, Route: IV, kg, Total Volume: 1,000, Start date: 01/14/12 12:28:00, Duration: 30 day, Stop date: 02/13/12 12:27:00 Saline 2011-03 No Crystal 5 ml, Memoria Flush 0.9% 03-15 Chasity Route: l 18:28: Annmarie IVP, Drug [place] 00 Form: INJ, Dosing Weight 91.818, kg, PRN, PRN Line Flush, Start date: 01/14/12 12:28:00, Duration: 30 day, Stop date: 02/13/12 12:27:00 ondansetron 2011- No Crystal 4 mg, 2 Memoria 1-12 Chasity mL, Route: l 18:28: Annmarie IVP, Drug [place] 00 form: INJ, Q6H, Dosing Weight 91.818, kg, PRN Nausea & Vomiting, Start date: 01/14/12 12:28:00, Duration: 30 day, Stop date: 02/13/12 12:27:00 Sodium 2011- No Crystal 1,000 mL, Mem oria Chloride 1-12 Chasity Rate: 125 l 0.9% IV 18:28: Annmarie ml/hr, [place] 1,000 mL 00 Infuse over: 8 hr, Route: IV, kg, Total Volume: 1,000, Start date: 01/14/12 12:28:00, Duration: 30 day, Stop date: 02/13/12 12:27:00 Saline 2011- No Crystal 5 ml, Memoria Flush 0.9% 12 Chasity Route: l 18:28: Annmarie IVP, Drug [place] 00 Form: INJ, Dosing Weight 91.818, kg, PRN, PRN Line Flush, Start date: 01/14/12 12:28:00, Duration: 30 day, Stop date: 02/13/12 12:27:00 ondansetron 2011-03 No Crystal 4 mg, 2 Memoria 1-12 Chasity mL, Route: l 18:28: Annmarie IVP, Drug [place] 00 form: INJ, Q6H, Dosing Weight 91.818, kg, PRN Nausea & Vomiting, Start date: 01/14/12 12:28:00, Duration: 30 day, Stop date: 02/13/12 12:27:00 Sodium 2011- No Crystal 1,000 mL, Mem oria Chloride 1-12 Chasity Rate: 125 l 0.9% IV 18:28: Annmarie ml/hr, [place] 1,000 mL 00 Infuse over: 8 hr, Route: IV, kg, Total Volume: 1,000, Start date: 01/14/12 12:28:00, Duration: 30 day, Stop date: 02/13/12 12:27:00 Saline 2011- No Crystal 5 ml, Memoria Flush 0.9% 1-12 Chasity Route: l 18:28: Annmarie IVP, Drug [place] 00 Form: INJ, Dosing Weight 91.818, kg, PRN, PRN Line Flush, Start date: 01/14/12 12:28:00, Duration: 30 day, Stop date: 02/13/12 12:27:00 ondansetron 2011-03 No Crystal 4 mg, 2 Memoria 1-12 Chasity mL, Route: l 18:28: Annmarie IVP, Drug [place] 00 form: INJ, Q6H, Dosing Weight 91.818, kg, PRN Nausea & Vomiting, Start date: 01/14/12 12:28:00, Duration: 30 day, Stop date: 02/13/12 12:27:00 Sodium 2011- No Crystal 1,000 mL, Mem oria Chloride -12 Chasity Rate: 125 l 0.9% IV 18:28: Annmarie ml/hr, [place] 1,000 mL 00 Infuse over: 8 hr, Route: IV, kg, Total Volume: 1,000, Start date: 01/14/12 12:28:00, Duration: 30 day, Stop date: 02/13/12 12:27:00 Saline 2011- No Crystal 5 ml, Memoria Flush 0.9% 12 Chasity Route: l 18:28: Annmarie IVP, Drug [place] 00 Form: INJ, Dosing Weight 91.818, kg, PRN, PRN Line Flush, Start date: 01/14/12 12:28:00, Duration: 30 day, Stop date: 02/13/12 12:27:00 ondansetron 2011-03 No Crystal 4 mg, 2 Memoria 1-12 Chasity mL, Route: l 18:28: Annmarie IVP, Drug [place] 00 form: INJ, Q6H, Dosing Weight 91.818, kg, PRN Nausea & Vomiting, Start date: 01/14/12 12:28:00, Duration: 30 day, Stop date: 02/13/12 12:27:00 Sodium 2011- No Crystal 1,000 mL, Mem oria Chloride -12 Chasity Rate: 125 l 0.9% IV 18:28: Annmarie ml/hr, [place] 1,000 mL 00 Infuse over: 8 hr, Route: IV, kg, Total Volume: 1,000, Start date: 01/14/12 12:28:00, Duration: 30 day, Stop date: 02/13/12 12:27:00 Saline 2011- No Crystal 5 ml, Memoria Flush 0.9% 12 Chasity Route: l 18:28: Annmarie IVP, Drug [place] 00 Form: INJ, Dosing Weight 91.818, kg, PRN, PRN Line Flush, Start date: 01/14/12 12:28:00, Duration: 30 day, Stop date: 02/13/12 12:27:00 ondansetron 2011-03 No Crystal 4 mg, 2 Memoria -12 Chasity mL, Route: l 18:28: Annmarie IVP, Drug [place] 00 form: INJ, Q6H, Dosing Weight 91.818, kg, PRN Nausea & Vomiting, Start date: 01/14/12 12:28:00, Duration: 30 day, Stop date: 02/13/12 12:27:00 Sodium 2011-03 No Crystal 1,000 mL, Mem oria Chloride 03-15 Chasity Rate: 125 l 0.9% IV 18:28: Annmarie ml/hr, [place] 1,000 mL 00 Infuse over: 8 hr, Route: IV, kg, Total Volume: 1,000, Start date: 01/14/12 12:28:00, Duration: 30 day, Stop date: 02/13/12 12:27:00 Saline 2011-03 No Crystal 5 ml, Memoria Flush 0.9% 12 Chasity Route: l 18:28: Annmarie IVP, Drug [place] 00 Form: INJ, Dosing Weight 91.818, kg, PRN, PRN Line Flush, Start date: 01/14/12 12:28:00, Duration: 30 day, Stop date: 02/13/12 12:27:00 ondansetron 2011-03 No Crystal 4 mg, 2 Memoria 1-12 Chasity mL, Route: l 18:28: Annmarie IVP, Drug [place] 00 form: INJ, Q6H, Dosing Weight 91.818, kg, PRN Nausea & Vomiting, Start date: 01/14/12 12:28:00, Duration: 30 day, Stop date: 02/13/12 12:27:00 Sodium 2011-03 No Crystal 1,000 mL, Mem oria Chloride 1-12 Chasity Rate: 125 l 0.9% IV 18:28: Annmarie ml/hr, [place] 1,000 mL 00 Infuse over: 8 hr, Route: IV, kg, Total Volume: 1,000, Start date: 01/14/12 12:28:00, Duration: 30 day, Stop date: 02/13/12 12:27:00 Saline 2011-03 No Crystal 5 ml, Memoria Flush 0.9% 12 Chasity Route: l 18:28: Annmarie IVP, Drug [place] 00 Form: INJ, Dosing Weight 91.818, kg, PRN, PRN Line Flush, Start date: 01/14/12 12:28:00, Duration: 30 day, Stop date: 02/13/12 12:27:00 ondansetron 2011-03 No Crystal 4 mg, 2 Memoria 1-12 Chasity mL, Route: l 18:28: Annmarie IVP, Drug [place] 00 form: INJ, Q6H, Dosing Weight 91.818, kg, PRN Nausea & Vomiting, Start date: 01/14/12 12:28:00, Duration: 30 day, Stop date: 02/13/12 12:27:00 Sodium 2011-03 No Crystal 1,000 mL, Mem oria Chloride -12 Chasity Rate: 125 l 0.9% IV 18:28: Annmarie ml/hr, [place] 1,000 mL 00 Infuse over: 8 hr, Route: IV, kg, Total Volume: 1,000, Start date: 01/14/12 12:28:00, Duration: 30 day, Stop date: 02/13/12 12:27:00 Saline 2011-03 No Crystal 5 ml, Memoria Flush 0.9% 12 Chasity Route: l 18:28: Annmarie IVP, Drug [place] 00 Form: INJ, Dosing Weight 91.818, kg, PRN, PRN Line Flush, Start date: 01/14/12 12:28:00, Duration: 30 day, Stop date: 02/13/12 12:27:00 ondansetron 2011-03 No Crystal 4 mg, 2 Memoria 1-12 Chasity mL, Route: l 18:28: Annmarie IVP, Drug [place] 00 form: INJ, Q6H, Dosing Weight 91.818, kg, PRN Nausea & Vomiting, Start date: 01/14/12 12:28:00, Duration: 30 day, Stop date: 02/13/12 12:27:00 Sodium 2011- No Crystal 1,000 mL, Mem oria Chloride 1-12 Chasity Rate: 125 l 0.9% IV 18:28: Annmarie ml/hr, [place] 1,000 mL 00 Infuse over: 8 hr, Route: IV, kg, Total Volume: 1,000, Start date: 01/14/12 12:28:00, Duration: 30 day, Stop date: 02/13/12 12:27:00 Saline 2011- No Crystal 5 ml, Memoria Flush 0.9% 12 Chasity Route: l 18:28: Annmarie IVP, Drug [place] 00 Form: INJ, Dosing Weight 91.818, kg, PRN, PRN Line Flush, Start date: 01/14/12 12:28:00, Duration: 30 day, Stop date: 02/13/12 12:27:00 ondansetron 2011-03 No Crystal 4 mg, 2 Memoria 1-12 Chasity mL, Route: l 18:28: Annmarie IVP, Drug [place] 00 form: INJ, Q6H, Dosing Weight 91.818, kg, PRN Nausea & Vomiting, Start date: 01/14/12 12:28:00, Duration: 30 day, Stop date: 02/13/12 12:27:00 Sodium 2011- No Crystal 1,000 mL, Mem oria Chloride 1-12 Chasity Rate: 125 l 0.9% IV 18:28: Annmarie ml/hr, [place] 1,000 mL 00 Infuse over: 8 hr, Route: IV, kg, Total Volume: 1,000, Start date: 01/14/12 12:28:00, Duration: 30 day, Stop date: 02/13/12 12:27:00 Saline 2011- No Crystal 5 ml, Memoria Flush 0.9% 1-12 Chasity Route: l 18:28: Annmarie IVP, Drug [place] 00 Form: INJ, Dosing Weight 91.818, kg, PRN, PRN Line Flush, Start date: 01/14/12 12:28:00, Duration: 30 day, Stop date: 02/13/12 12:27:00 ondansetron 2011- No Crystal 4 mg, 2 Memoria 1-12 Chasity mL, Route: l 18:28: Annmarie IVP, Drug [place] 00 form: INJ, Q6H, Dosing Weight 91.818, kg, PRN Nausea & Vomiting, Start date: 01/14/12 12:28:00, Duration: 30 day, Stop date: 02/13/12 12:27:00 Sodium 2011- No Crystal 1,000 mL, Mem oria Chloride 1-12 Chasity Rate: 125 l 0.9% IV 18:28: Annmarie ml/hr, [place] 1,000 mL 00 Infuse over: 8 hr, Route: IV, kg, Total Volume: 1,000, Start date: 01/14/12 12:28:00, Duration: 30 day, Stop date: 02/13/12 12:27:00 Saline 2011- No Crystal 5 ml, Memoria Flush 0.9% 12 Chasity Route: l 18:28: Annmarie IVP, Drug [place] 00 Form: INJ, Dosing Weight 91.818, kg, PRN, PRN Line Flush, Start date: 01/14/12 12:28:00, Duration: 30 day, Stop date: 02/13/12 12:27:00 ondansetron 2011- No Crystal 4 mg, 2 Memoria 1-12 Chasity mL, Route: l 18:28: Annmarie IVP, Drug [place] 00 form: INJ, Q6H, Dosing Weight 91.818, kg, PRN Nausea & Vomiting, Start date: 01/14/12 12:28:00, Duration: 30 day, Stop date: 02/13/12 12:27:00 Sodium 2011- No Crystal 1,000 mL, Mem oria Chloride 1-12 Chasity Rate: 125 l 0.9% IV 18:28: Annmarie ml/hr, [place] 1,000 mL 00 Infuse over: 8 hr, Route: IV, kg, Total Volume: 1,000, Start date: 01/14/12 12:28:00, Duration: 30 day, Stop date: 02/13/12 12:27:00 Saline 2011- No Crystal 5 ml, Memoria Flush 0.9% 1-12 Chasity Route: l 18:28: Annmarie IVP, Drug [place] 00 Form: INJ, Dosing Weight 91.818, kg, PRN, PRN Line Flush, Start date: 01/14/12 12:28:00, Duration: 30 day, Stop date: 02/13/12 12:27:00 ondansetron 2011-03 No Crystal 4 mg, 2 Memoria 1-12 Chasity mL, Route: l 18:28: Annmarie IVP, Drug [place] 00 form: INJ, Q6H, Dosing Weight 91.818, kg, PRN Nausea & Vomiting, Start date: 01/14/12 12:28:00, Duration: 30 day, Stop date: 02/13/12 12:27:00 Sodium 2011- No Crystal 1,000 mL, Mem oria Chloride 1-12 Chasity Rate: 125 l 0.9% IV 18:28: Annmarie ml/hr, [place] 1,000 mL 00 Infuse over: 8 hr, Route: IV, kg, Total Volume: 1,000, Start date: 01/14/12 12:28:00, Duration: 30 day, Stop date: 02/13/12 12:27:00 Saline 2011-03 No Crystal 5 ml, Memoria Flush 0.9% 12 Chasity Route: l 18:28: Annmarie IVP, Drug [place] 00 Form: INJ, Dosing Weight 91.818, kg, PRN, PRN Line Flush, Start date: 01/14/12 12:28:00, Duration: 30 day, Stop date: 02/13/12 12:27:00 ondansetron 2011-03 No Crystal 4 mg, 2 Memoria 1-12 Chasity mL, Route: l 18:28: Annmarie IVP, Drug [place] 00 form: INJ, Q6H, Dosing Weight 91.818, kg, PRN Nausea & Vomiting, Start date: 01/14/12 12:28:00, Duration: 30 day, Stop date: 02/13/12 12:27:00 Sodium 2011- No Crystal 1,000 mL, Mem oria Chloride 1-12 Chasity Rate: 125 l 0.9% IV 18:28: Annmarie ml/hr, [place] 1,000 mL 00 Infuse over: 8 hr, Route: IV, kg, Total Volume: 1,000, Start date: 01/14/12 12:28:00, Duration: 30 day, Stop date: 02/13/12 12:27:00 Saline 2011- No Crystal 5 ml, Memoria Flush 0.9% 12 Chasity Route: l 18:28: Annmarie IVP, Drug [place] 00 Form: INJ, Dosing Weight 91.818, kg, PRN, PRN Line Flush, Start date: 01/14/12 12:28:00, Duration: 30 day, Stop date: 02/13/12 12:27:00 ondansetron 2011-03 No Crystal 4 mg, 2 Memoria 1-12 Chasity mL, Route: l 18:28: Annmarie IVP, Drug [place] 00 form: INJ, Q6H, Dosing Weight 91.818, kg, PRN Nausea & Vomiting, Start date: 01/14/12 12:28:00, Duration: 30 day, Stop date: 02/13/12 12:27:00 Sodium 2011- No Crystal 1,000 mL, Mem oria Chloride -12 Chasity Rate: 125 l 0.9% IV 18:28: Annmarie ml/hr, [place] 1,000 mL 00 Infuse over: 8 hr, Route: IV, kg, Total Volume: 1,000, Start date: 01/14/12 12:28:00, Duration: 30 day, Stop date: 02/13/12 12:27:00 Saline 2011-03 No Crystal 5 ml, Memoria Flush 0.9% 12 Chasity Route: l 18:28: Annmarie IVP, Drug Fred 00 Form: INJ, Dosing Weight 91.818, kg, PRN, PRN Line Flush, Start date: 01/14/12 12:28:00, Duration: 30 day, Stop date: 02/13/12 12:27:00 ondansetron 2011-03 No Crystal 4 mg, 2 Memoria 1-12 Chasity mL, Route: l 18:28: Annmarie IVP, Drug Fred 00 form: INJ, Q6H, Dosing Weight 91.818, kg, PRN Nausea & Vomiting, Start date: 01/14/12 12:28:00, Duration: 30 day, Stop date: 02/13/12 12:27:00 Sodium 2011- No Crystal 1,000 mL, Mem oria Chloride 12 Chasity Rate: 125 l 0.9% IV 18:28: Annmarie ml/hr, [place] 1,000 mL 00 Infuse over: 8 hr, Route: IV, kg, Total Volume: 1,000, Start date: 01/14/12 12:28:00, Duration: 30 day, Stop date: 02/13/12 12:27:00 Saline 2011- No Crystal 5 ml, Memoria Flush 0.9% 03-15 Chasity Route: l 18:28: Annmarie IVP, Drug [place] 00 Form: INJ, Dosing Weight 91.818, kg, PRN, PRN Line Flush, Start date: 01/14/12 12:28:00, Duration: 30 day, Stop date: 02/13/12 12:27:00 ondansetron 2011-03 No Crystal 4 mg, 2 Memoria -12 Chasity mL, Route: l 18:28: Annmarie IVP, Drug [place] 00 form: INJ, Q6H, Dosing Weight 91.818, kg, PRN Nausea & Vomiting, Start date: 01/14/12 12:28:00, Duration: 30 day, Stop date: 02/13/12 12:27:00 Sodium 2011- No Crystal 1,000 mL, Mem oria Chloride 03-15 Chasity Rate: 125 l 0.9% IV 18:28: Annmarie ml/hr, [place] 1,000 mL 00 Infuse over: 8 hr, Route: IV, kg, Total Volume: 1,000, Start date: 01/14/12 12:28:00, Duration: 30 day, Stop date: 02/13/12 12:27:00 Saline 2011- No Crystal 5 ml, Memoria Flush 0.9% 12 Chasity Route: l 18:28: Annmarie IVP, Drug [place] 00 Form: INJ, Dosing Weight 91.818, kg, PRN, PRN Line Flush, Start date: 01/14/12 12:28:00, Duration: 30 day, Stop date: 02/13/12 12:27:00 ondansetron 2011-03 No Crystal 4 mg, 2 Memoria 1-12 Chasity mL, Route: l 18:28: Annmarie IVP, Drug Fred 00 form: INJ, Q6H, Dosing Weight 91.818, kg, PRN Nausea & Vomiting, Start date: 01/14/12 12:28:00, Duration: 30 day, Stop date: 02/13/12 12:27:00 Sodium 2011-03 No Crystal 1,000 mL, Mem oria Chloride 03-15 Chasity Rate: 125 l 0.9% IV 18:28: Annmarie ml/hr, [place] 1,000 mL 00 Infuse over: 8 hr, Route: IV, kg, Total Volume: 1,000, Start date: 01/14/12 12:28:00, Duration: 30 day, Stop date: 02/13/12 12:27:00 Saline 2011-03 No Crystal 5 ml, Memoria Flush 0.9% 03-15 Chasity Route: l 18:28: Annmarie IVP, Drug [place] 00 Form: INJ, Dosing Weight 91.818, kg, PRN, PRN Line Flush, Start date: 01/14/12 12:28:00, Duration: 30 day, Stop date: 02/13/12 12:27:00 ondansetron 2011-03 No Crystal 4 mg, 2 Memoria 1-12 Chasity mL, Route: l 18:28: Annmarie IVP, Drug [place] 00 form: INJ, Q6H, Dosing Weight 91.818, kg, PRN Nausea & Vomiting, Start date: 01/14/12 12:28:00, Duration: 30 day, Stop date: 02/13/12 12:27:00 Sodium 2011-03 No Crystal 1,000 mL, Mem oria Chloride 03-15 Chasity Rate: 125 l 0.9% IV 18:28: Annmarie ml/hr, [place] 1,000 mL 00 Infuse over: 8 hr, Route: IV, kg, Total Volume: 1,000, Start date: 01/14/12 12:28:00, Duration: 30 day, Stop date: 02/13/12 12:27:00 Saline 2011-03 No Crystal 5 ml, Memoria Flush 0.9% 03-15 Chasity Route: l 18:28: Annmarie IVP, Drug [place] 00 Form: INJ, Dosing Weight 91.818, kg, PRN, PRN Line Flush, Start date: 01/14/12 12:28:00, Duration: 30 day, Stop date: 02/13/12 12:27:00 ondansetron 2011-03 No Crystal 4 mg, 2 Memoria 03-15 Chasity mL, Route: l 18:28: Annmarie IVP, Drug [place] 00 form: INJ, Q6H, Dosing Weight 91.818, kg, PRN Nausea & Vomiting, Start date: 01/14/12 12:28:00, Duration: 30 day, Stop date: 02/13/12 12:27:00 Sodium 2011-03 No Crystal 1,000 mL, Mem oria Chloride 03-15 Chasity Rate: 125 l 0.9% IV 18:28: Annmarie ml/hr, Fred 1,000 mL 00 Infuse over: 8 hr, Route: IV, kg, Total Volume: 1,000, Start date: 01/14/12 12:28:00, Duration: 30 day, Stop date: 02/13/12 12:27:00 METRONIDazo 2011-03 No Jin Amairani 500 mg, Memoria le 03-15 100 mL, l 17:29: Route: [place] 00 IVPB, Drug form: INJ, ONCE, Dosing Weight 91.818, kg, Priority: STAT, Start date: 01/14/12 11:29:00, Stop date: 01/14/12 11:29:00 ciprofloxac 2011-03 No Jin Amairani 400 mg, Memoria in 03-15 Route: l 17:29: IVPB, [place] 00 ONCE, Dosing Weight 91.818, kg, Priority: STAT, Start date: 01/14/12 11:29:00, Stop date: 01/14/12 11:29:00 METRONIDazo 2011-03 No Jin Amairani 500 mg, Memoria le 03-15 100 mL, l 17:29: Route: [place] 00 IVPB, Drug form: INJ, ONCE, Dosing Weight 91.818, kg, Priority: STAT, Start date: 01/14/12 11:29:00, Stop date: 01/14/12 11:29:00 ciprofloxac 2011-03 No Jin Amairani 400 mg, Memoria in 03-15 Route: l 17:29: IVPB, [place] 00 ONCE, Dosing Weight 91.818, kg, Priority: STAT, Start date: 01/14/12 11:29:00, Stop date: 01/14/12 11:29:00 METRONIDazo 2011-03 No Jin Amairani 500 mg, Memoria le 03-15 100 mL, l 17:29: Route: [place] 00 IVPB, Drug form: INJ, ONCE, Dosing Weight 91.818, kg, Priority: STAT, Start date: 01/14/12 11:29:00, Stop date: 01/14/12 11:29:00 ciprofloxac 2011-03 No Jin Amairani 400 mg, Memoria in 03-15 Route: l 17:29: IVPB, [place] 00 ONCE, Dosing Weight 91.818, kg, Priority: STAT, Start date: 01/14/12 11:29:00, Stop date: 01/14/12 11:29:00 METRONIDazo 2011-03 No Jin Amairani 500 mg, Memoria le 03-15 100 mL, l 17:29: Route: [place] 00 IVPB, Drug form: INJ, ONCE, Dosing Weight 91.818, kg, Priority: STAT, Start date: 01/14/12 11:29:00, Stop date: 01/14/12 11:29:00 ciprofloxac 2011-03 No Jin Amairani 400 mg, Memoria in 03-15 Route: l 17:29: IVPB, [place] 00 ONCE, Dosing Weight 91.818, kg, Priority: STAT, Start date: 01/14/12 11:29:00, Stop date: 01/14/12 11:29:00 METRONIDazo 2011-03 No Jin Amairani 500 mg, Memoria le 03-15 100 mL, l 17:29: Route: [place] 00 IVPB, Drug form: INJ, ONCE, Dosing Weight 91.818, kg, Priority: STAT, Start date: 01/14/12 11:29:00, Stop date: 01/14/12 11:29:00 ciprofloxac 2011-03 No Jin Amairani 400 mg, Memoria in 03-15 Route: l 17:29: IVPB, [place] 00 ONCE, Dosing Weight 91.818, kg, Priority: STAT, Start date: 01/14/12 11:29:00, Stop date: 01/14/12 11:29:00 METRONIDazo 2011-03 No Jin Amairani 500 mg, Memoria le 03-15 100 mL, l 17:29: Route: [place] 00 IVPB, Drug form: INJ, ONCE, Dosing Weight 91.818, kg, Priority: STAT, Start date: 01/14/12 11:29:00, Stop date: 01/14/12 11:29:00 ciprofloxac 2011-03 No Jin Amairani 400 mg, Memoria in 03-15 Route: l 17:29: IVPB, [place] 00 ONCE, Dosing Weight 91.818, kg, Priority: STAT, Start date: 01/14/12 11:29:00, Stop date: 01/14/12 11:29:00 METRONIDazo 2011-03 No Jin Amairani 500 mg, Memoria le 03-15 100 mL, l 17:29: Route: [place] 00 IVPB, Drug form: INJ, ONCE, Dosing Weight 91.818, kg, Priority: STAT, Start date: 01/14/12 11:29:00, Stop date: 01/14/12 11:29:00 ciprofloxac 2011-03 No Jin Amairani 400 mg, Memoria in 03-15 Route: l 17:29: IVPB, [place] 00 ONCE, Dosing Weight 91.818, kg, Priority: STAT, Start date: 01/14/12 11:29:00, Stop date: 01/14/12 11:29:00 METRONIDazo 2011-03 No Jin Amairani 500 mg, Memoria le 03-15 100 mL, l 17:29: Route: [place] 00 IVPB, Drug form: INJ, ONCE, Dosing Weight 91.818, kg, Priority: STAT, Start date: 01/14/12 11:29:00, Stop date: 01/14/12 11:29:00 ciprofloxac 2011-03 No Jin Amairani 400 mg, Memoria in 03-15 Route: l 17:29: IVPB, [place] 00 ONCE, Dosing Weight 91.818, kg, Priority: STAT, Start date: 01/14/12 11:29:00, Stop date: 01/14/12 11:29:00 METRONIDazo 2011-03 No Jin Amairani 500 mg, Memoria le 03-15 100 mL, l 17:29: Route: [place] 00 IVPB, Drug form: INJ, ONCE, Dosing Weight 91.818, kg, Priority: STAT, Start date: 01/14/12 11:29:00, Stop date: 01/14/12 11:29:00 ciprofloxac 2011-03 No Jin Amairani 400 mg, Memoria in 03-15 Route: l 17:29: IVPB, [place] 00 ONCE, Dosing Weight 91.818, kg, Priority: STAT, Start date: 01/14/12 11:29:00, Stop date: 01/14/12 11:29:00 METRONIDazo 2011-03 No Jin Amairani 500 mg, Memoria le 03-15 100 mL, l 17:29: Route: [place] 00 IVPB, Drug form: INJ, ONCE, Dosing Weight 91.818, kg, Priority: STAT, Start date: 01/14/12 11:29:00, Stop date: 01/14/12 11:29:00 ciprofloxac 2011-03 No Jin Amairani 400 mg, Memoria in 03-15 Route: l 17:29: IVPB, [place] 00 ONCE, Dosing Weight 91.818, kg, Priority: STAT, Start date: 01/14/12 11:29:00, Stop date: 01/14/12 11:29:00 METRONIDazo 2011-03 No Jin Amairani 500 mg, Memoria le 03-15 100 mL, l 17:29: Route: [place] 00 IVPB, Drug form: INJ, ONCE, Dosing Weight 91.818, kg, Priority: STAT, Start date: 01/14/12 11:29:00, Stop date: 01/14/12 11:29:00 ciprofloxac 2011-03 No Jin Aamirani 400 mg, Memoria in 03-15 Route: l 17:29: IVPB, [place] 00 ONCE, Dosing Weight 91.818, kg, Priority: STAT, Start date: 01/14/12 11:29:00, Stop date: 01/14/12 11:29:00 METRONIDazo 2011-03 No Jin Amairani 500 mg, Memoria le 03-15 100 mL, l 17:29: Route: [place] 00 IVPB, Drug form: INJ, ONCE, Dosing Weight 91.818, kg, Priority: STAT, Start date: 01/14/12 11:29:00, Stop date: 01/14/12 11:29:00 ciprofloxac 2011-03 No Jin Amairani 400 mg, Memoria in 03-15 Route: l 17:29: IVPB, [place] 00 ONCE, Dosing Weight 91.818, kg, Priority: STAT, Start date: 01/14/12 11:29:00, Stop date: 01/14/12 11:29:00 METRONIDazo 2011-03 No Jin Amairani 500 mg, Memoria le 03-15 100 mL, l 17:29: Route: [place] 00 IVPB, Drug form: INJ, ONCE, Dosing Weight 91.818, kg, Priority: STAT, Start date: 01/14/12 11:29:00, Stop date: 01/14/12 11:29:00 ciprofloxac 2011-03 No Jin Amairani 400 mg, Memoria in 03-15 Route: l 17:29: IVPB, [place] 00 ONCE, Dosing Weight 91.818, kg, Priority: STAT, Start date: 01/14/12 11:29:00, Stop date: 01/14/12 11:29:00 METRONIDazo 2011-03 No Jin Amairani 500 mg, Memoria le 03-15 100 mL, l 17:29: Route: [place] 00 IVPB, Drug form: INJ, ONCE, Dosing Weight 91.818, kg, Priority: STAT, Start date: 01/14/12 11:29:00, Stop date: 01/14/12 11:29:00 ciprofloxac 2011-03 No Jin Amairani 400 mg, Memoria in 03-15 Route: l 17:29: IVPB, [place] 00 ONCE, Dosing Weight 91.818, kg, Priority: STAT, Start date: 01/14/12 11:29:00, Stop date: 01/14/12 11:29:00 METRONIDazo 2011-03 No Jin Amairani 500 mg, Memoria le 03-15 100 mL, l 17:29: Route: [place] 00 IVPB, Drug form: INJ, ONCE, Dosing Weight 91.818, kg, Priority: STAT, Start date: 01/14/12 11:29:00, Stop date: 01/14/12 11:29:00 ciprofloxac 2011-03 No Jin Amairani 400 mg, Memoria in 03-15 Route: l 17:29: IVPB, [place] 00 ONCE, Dosing Weight 91.818, kg, Priority: STAT, Start date: 01/14/12 11:29:00, Stop date: 01/14/12 11:29:00 METRONIDazo 2011-03 No Jin Amairani 500 mg, Memoria le 03-15 100 mL, l 17:29: Route: [place] 00 IVPB, Drug form: INJ, ONCE, Dosing Weight 91.818, kg, Priority: STAT, Start date: 01/14/12 11:29:00, Stop date: 01/14/12 11:29:00 ciprofloxac 2011-03 No Jin Amairani 400 mg, Memoria in 03-15 Route: l 17:29: IVPB, [place] 00 ONCE, Dosing Weight 91.818, kg, Priority: STAT, Start date: 01/14/12 11:29:00, Stop date: 01/14/12 11:29:00 METRONIDazo 2011-03 No Jin Amairani 500 mg, Memoria le 03-15 100 mL, l 17:29: Route: [place] 00 IVPB, Drug form: INJ, ONCE, Dosing Weight 91.818, kg, Priority: STAT, Start date: 01/14/12 11:29:00, Stop date: 01/14/12 11:29:00 ciprofloxac 2011-03 No Jin Amairani 400 mg, Memoria in 03-15 Route: l 17:29: IVPB, [place] 00 ONCE, Dosing Weight 91.818, kg, Priority: STAT, Start date: 01/14/12 11:29:00, Stop date: 01/14/12 11:29:00 METRONIDazo 2011-03 No Jin Amairani 500 mg, Memoria le 03-15 100 mL, l 17:29: Route: [place] 00 IVPB, Drug form: INJ, ONCE, Dosing Weight 91.818, kg, Priority: STAT, Start date: 01/14/12 11:29:00, Stop date: 01/14/12 11:29:00 ciprofloxac 2011-03 No Jin Amairani 400 mg, Memoria in 03-15 Route: l 17:29: IVPB, [place] 00 ONCE, Dosing Weight 91.818, kg, Priority: STAT, Start date: 01/14/12 11:29:00, Stop date: 01/14/12 11:29:00 METRONIDazo 2011-03 No Jin Amairani 500 mg, Memoria le 03-15 100 mL, l 17:29: Route: [place] 00 IVPB, Drug form: INJ, ONCE, Dosing Weight 91.818, kg, Priority: STAT, Start date: 01/14/12 11:29:00, Stop date: 01/14/12 11:29:00 ciprofloxac 2011-03 No Jin Amairani 400 mg, Memoria in 03-15 Route: l 17:29: IVPB, [place] 00 ONCE, Dosing Weight 91.818, kg, Priority: STAT, Start date: 01/14/12 11:29:00, Stop date: 01/14/12 11:29:00 METRONIDazo 2011-03 No Jin Amairani 500 mg, Memoria le 03-15 100 mL, l 17:29: Route: [place] 00 IVPB, Drug form: INJ, ONCE, Dosing Weight 91.818, kg, Priority: STAT, Start date: 01/14/12 11:29:00, Stop date: 01/14/12 11:29:00 ciprofloxac 2011-03 No Jin Amairani 400 mg, Memoria in 03-15 Route: l 17:29: IVPB, [place] 00 ONCE, Dosing Weight 91.818, kg, Priority: STAT, Start date: 01/14/12 11:29:00, Stop date: 01/14/12 11:29:00 Omnipaque 2011-03 No Jin Amairani 100 mL, Me moria 300 03-15 1200 l 16:41: ml/hr, [place] 00 Route: IVP, Drug Form: SOLN, ONCE, Start date: 01/14/12 10:41:00, Stop date: 01/14/12 10:41:00 Omnipaque 2011-03 No Jin Amairani 100 mL, Me moria 300 03-15 1200 l 16:41: ml/hr, [place] 00 Route: IVP, Drug Form: SOLN, ONCE, Start date: 01/14/12 10:41:00, Stop date: 01/14/12 10:41:00 Omnipaque 2011-03 No Jake Bales 100 mL, mor[place] 300 1-12 1200 l 16:41: ml/hr, [place] 00 Route: IVP, Drug Form: SOLN, ONCE, Start date: 01/14/12 10:41:00, Stop date: 01/14/12 10:41:00 Omnipaque 2011-03 No Jake Bales 100 mL, mor[place] 300 1-12 1200 l 16:41: ml/hr, [place] 00 Route: IVP, Drug Form: SOLN, ONCE, Start date: 01/14/12 10:41:00, Stop date: 01/14/12 10:41:00 Omnipaque 2011-03 No Jake Bales 100 mL, moria 300 1-12 1200 l 16:41: ml/hr, [place] 00 Route: IVP, Drug Form: SOLN, ONCE, Start date: 01/14/12 10:41:00, Stop date: 01/14/12 10:41:00 Omnipaque 2011-03 No Jake Bales 100 mL, moria 300 1-12 1200 l 16:41: ml/hr, [place] 00 Route: IVP, Drug Form: SOLN, ONCE, Start date: 01/14/12 10:41:00, Stop date: 01/14/12 10:41:00 Omnipaque 2011-03 No Jake Bales 100 mL, moria 300 1-12 1200 l 16:41: ml/hr, [place] 00 Route: IVP, Drug Form: SOLN, ONCE, Start date: 01/14/12 10:41:00, Stop date: 01/14/12 10:41:00 Omnipaque 2011-03 No Jake Bales 100 mL, mor[place] 300 1-12 1200 l 16:41: ml/hr, [place] 00 Route: IVP, Drug Form: SOLN, ONCE, Start date: 01/14/12 10:41:00, Stop date: 01/14/12 10:41:00 Omnipaque 2011-03 No Jake Bales 100 mL, [place] 300 1-12 1200 l 16:41: ml/hr, [place] 00 Route: IVP, Drug Form: SOLN, ONCE, Start date: 01/14/12 10:41:00, Stop date: 01/14/12 10:41:00 Omnipaque 2011-03 No Jake Bales 100 mL, Me mor[place] 300 1-12 1200 l 16:41: ml/hr, [place] 00 Route: IVP, Drug Form: SOLN, ONCE, Start date: 01/14/12 10:41:00, Stop date: 01/14/12 10:41:00 Omnipaque 2011-03 No Jake Bales 100 mL, Me mor[place] 300 1-12 1200 l 16:41: ml/hr, [place] 00 Route: IVP, Drug Form: SOLN, ONCE, Start date: 01/14/12 10:41:00, Stop date: 01/14/12 10:41:00 Omnipaque 2011-03 No Jake Bales 100 mL, Me mor[place] 300 1-12 1200 l 16:41: ml/hr, [place] 00 Route: IVP, Drug Form: SOLN, ONCE, Start date: 01/14/12 10:41:00, Stop date: 01/14/12 10:41:00 Omnipaque 2011-03 No Jake Bales 100 mL, Me moria 300 1-12 1200 l 16:41: ml/hr, [place] 00 Route: IVP, Drug Form: SOLN, ONCE, Start date: 01/14/12 10:41:00, Stop date: 01/14/12 10:41:00 Omnipaque 2011-03 No Jake Bales 100 mL, Me mor[place] 300 1-12 1200 l 16:41: ml/hr, [place] 00 Route: IVP, Drug Form: SOLN, ONCE, Start date: 01/14/12 10:41:00, Stop date: 01/14/12 10:41:00 Omnipaque 2011-03 No Jake Bales 100 mL, Me moria 300 1-12 1200 l 16:41: ml/hr, [place] 00 Route: IVP, Drug Form: SOLN, ONCE, Start date: 01/14/12 10:41:00, Stop date: 01/14/12 10:41:00 Omnipaque 2011-03 No Jake Bales 100 mL, Me mor[place] 300 1-12 1200 l 16:41: ml/hr, [place] 00 Route: IVP, Drug Form: SOLN, ONCE, Start date: 01/14/12 10:41:00, Stop date: 01/14/12 10:41:00 Omnipaque 2011-03 No Jake Bales 100 mL, Me mor[place] 300 1-12 1200 l 16:41: ml/hr, [place] 00 Route: IVP, Drug Form: SOLN, ONCE, Start date: 01/14/12 10:41:00, Stop date: 01/14/12 10:41:00 Omnipaque 2011-03 No Jake Bales 100 mL, Me moria 300 1-12 1200 l 16:41: ml/hr, [place] 00 Route: IVP, Drug Form: SOLN, ONCE, Start date: 01/14/12 10:41:00, Stop date: 01/14/12 10:41:00 Omnipaque 2011-03 No Jake Bales 100 mL, Me mor[place] 300 1- 1200 l 16:41: ml/hr, [place] 00 Route: IVP, Drug Form: SOLN, ONCE, Start date: 01/14/12 10:41:00, Stop date: 01/14/12 10:41:00 Omnipaque 2011-03 No Jake Bales 100 mL, Me moria 300 -12 1200 l 16:41: ml/hr, [place] 00 Route: IVP, Drug Form: SOLN, ONCE, Start date: 01/14/12 10:41:00, Stop date: 01/14/12 10:41:00 ondansetron 2011-03 No Jake Bales 4 mg, Me moria 12 Route: l 13:57: IVP, ONCE, [place] 00 Dosing Weight 91.818, kg, Priority: STAT, Start date: 01/14/12 7:57:00, Stop date: 01/14/12 7:57:00 Saline 2011-03 No Jake Bales 5 ml, Memoria Flush 0.9% 03-15 Route: l 13:57: IVP, Drug [place] 00 Form: INJ, Dosing Weight 91.818, kg, PRN, PRN Line Flush, Start date: 01/14/12 7:57:00, Duration: 30 day, Stop date: 02/13/12 7:56:00 Sodium 2011-03 No Jake Amairani 1,000 mL, Mem oria Chloride 03-15 Rate: l 0.9% 13:57: 1,000 [place] (Bolus) IV 00 ml/hr, 1,000 mL Infuse over: 1 hr, Route: IV, Dosing Weight 91.818 kg, Total Volume: 1,000, Bolus Dose, Priority: STAT, Start date: 01/14/12 7:57:00, Duration: 1 doses or times, Stop date: 01/14/12 8:56:00 ondansetron 2011-03 No Jake Amairani 4 mg, Me moria 03-15 Route: l 13:57: IVP, ONCE, [place] 00 Dosing Weight 91.818, kg, Priority: STAT, Start date: 01/14/12 7:57:00, Stop date: 01/14/12 7:57:00 Saline 2011-03 No Jin Amairani 5 ml, [facility] Flush 0.9% 03-15 Route: l 13:57: IVP, Drug [place] 00 Form: INJ, Dosing Weight 91.818, kg, PRN, PRN Line Flush, Start date: 01/14/12 7:57:00, Duration: 30 day, Stop date: 02/13/12 7:56:00 Sodium 2011-03 No Jin Amairani 1,000 mL, Mem oria Chloride 03-15 Rate: l 0.9% 13:57: 1,000 [place] (Bolus) IV 00 ml/hr, 1,000 mL Infuse over: 1 hr, Route: IV, Dosing Weight 91.818 kg, Total Volume: 1,000, Bolus Dose, Priority: STAT, Start date: 01/14/12 7:57:00, Duration: 1 doses or times, Stop date: 01/14/12 8:56:00 ondansetron 2011-03 No Jake Amairani 4 mg, Me moria 03-15 Route: l 13:57: IVP, ONCE, [place] 00 Dosing Weight 91.818, kg, Priority: STAT, Start date: 01/14/12 7:57:00, Stop date: 01/14/12 7:57:00 Saline 2011-03 No Jin Amairani 5 ml, Mem[facility] Flush 0.9% 03-15 Route: l 13:57: IVP, Drug [place] 00 Form: INJ, Dosing Weight 91.818, kg, PRN, PRN Line Flush, Start date: 01/14/12 7:57:00, Duration: 30 day, Stop date: 02/13/12 7:56:00 Sodium 2011-03 No Jin Amairani 1,000 mL, Mem oria Chloride 03-15 Rate: l 0.9% 13:57: 1,000 [place] (Bolus) IV 00 ml/hr, 1,000 mL Infuse over: 1 hr, Route: IV, Dosing Weight 91.818 kg, Total Volume: 1,000, Bolus Dose, Priority: STAT, Start date: 01/14/12 7:57:00, Duration: 1 doses or times, Stop date: 01/14/12 8:56:00 ondansetron 2011-03 No Jin Amairani 4 mg, Me moria 03-15 Route: l 13:57: IVP, ONCE, [place] 00 Dosing Weight 91.818, kg, Priority: STAT, Start date: 01/14/12 7:57:00, Stop date: 01/14/12 7:57:00 Saline 2011-03 No Jin Amairani 5 ml, [facility] Flush 0.9% 03-15 Route: l 13:57: IVP, Drug [place] 00 Form: INJ, Dosing Weight 91.818, kg, PRN, PRN Line Flush, Start date: 01/14/12 7:57:00, Duration: 30 day, Stop date: 02/13/12 7:56:00 Sodium 2011-03 No Jin Amairani 1,000 mL, Mem oria Chloride 03-15 Rate: l 0.9% 13:57: 1,000 Fred (Bolus) IV 00 ml/hr, 1,000 mL Infuse over: 1 hr, Route: IV, Dosing Weight 91.818 kg, Total Volume: 1,000, Bolus Dose, Priority: STAT, Start date: 01/14/12 7:57:00, Duration: 1 doses or times, Stop date: 01/14/12 8:56:00 ondansetron 2011-03 No Jin Amairani 4 mg, Me moria 03-15 Route: l 13:57: IVP, ONCE, [place] 00 Dosing Weight 91.818, kg, Priority: STAT, Start date: 01/14/12 7:57:00, Stop date: 01/14/12 7:57:00 Saline 2011-03 No Jin Amairani 5 ml, [facility] Flush 0.9% 03-15 Route: l 13:57: IVP, Drug [place] 00 Form: INJ, Dosing Weight 91.818, kg, PRN, PRN Line Flush, Start date: 01/14/12 7:57:00, Duration: 30 day, Stop date: 02/13/12 7:56:00 Sodium 2011-03 No Jin Amairani 1,000 mL, Mem oria Chloride 03-15 Rate: l 0.9% 13:57: 1,000 Fred (Bolus) IV 00 ml/hr, 1,000 mL Infuse over: 1 hr, Route: IV, Dosing Weight 91.818 kg, Total Volume: 1,000, Bolus Dose, Priority: STAT, Start date: 01/14/12 7:57:00, Duration: 1 doses or times, Stop date: 01/14/12 8:56:00 ondansetron 2011-03 No Jake Amairani 4 mg, Me moria 03-15 Route: l 13:57: IVP, ONCE, [place] 00 Dosing Weight 91.818, kg, Priority: STAT, Start date: 01/14/12 7:57:00, Stop date: 01/14/12 7:57:00 Saline 2011-03 No Jin Amairani 5 ml, [facility] Flush 0.9% 03-15 Route: l 13:57: IVP, Drug [place] 00 Form: INJ, Dosing Weight 91.818, kg, PRN, PRN Line Flush, Start date: 01/14/12 7:57:00, Duration: 30 day, Stop date: 02/13/12 7:56:00 Sodium 2011-03 No Jin Amairani 1,000 mL, Mem oria Chloride 03-15 Rate: l 0.9% 13:57: 1,000 [place] (Bolus) IV 00 ml/hr, 1,000 mL Infuse over: 1 hr, Route: IV, Dosing Weight 91.818 kg, Total Volume: 1,000, Bolus Dose, Priority: STAT, Start date: 01/14/12 7:57:00, Duration: 1 doses or times, Stop date: 01/14/12 8:56:00 ondansetron 2011-03 No Jin Amairani 4 mg, Me moria 03-15 Route: l 13:57: IVP, ONCE, [place] 00 Dosing Weight 91.818, kg, Priority: STAT, Start date: 01/14/12 7:57:00, Stop date: 01/14/12 7:57:00 Saline 2011-03 No Jake Bales 5 ml, Memoria Flush 0.9% 03-15 Route: l 13:57: IVP, Drug [place] 00 Form: INJ, Dosing Weight 91.818, kg, PRN, PRN Line Flush, Start date: 01/14/12 7:57:00, Duration: 30 day, Stop date: 02/13/12 7:56:00 Sodium 2011-03 No Jake Amairani 1,000 mL, Mem oria Chloride 03-15 Rate: l 0.9% 13:57: 1,000 Fred (Bolus) IV 00 ml/hr, 1,000 mL Infuse over: 1 hr, Route: IV, Dosing Weight 91.818 kg, Total Volume: 1,000, Bolus Dose, Priority: STAT, Start date: 01/14/12 7:57:00, Duration: 1 doses or times, Stop date: 01/14/12 8:56:00 ondansetron 2011-03 No Jake Bales 4 mg, Me moria 03-15 Route: l 13:57: IVP, ONCE, [place] 00 Dosing Weight 91.818, kg, Priority: STAT, Start date: 01/14/12 7:57:00, Stop date: 01/14/12 7:57:00 Saline 2011-03 No Jake Bales 5 ml, Memoria Flush 0.9% 03-15 Route: l 13:57: IVP, Drug [place] 00 Form: INJ, Dosing Weight 91.818, kg, PRN, PRN Line Flush, Start date: 01/14/12 7:57:00, Duration: 30 day, Stop date: 02/13/12 7:56:00 Sodium 2011-03 No Jin Amairani 1,000 mL, Mem oria Chloride 03-15 Rate: l 0.9% 13:57: 1,000 [place] (Bolus) IV 00 ml/hr, 1,000 mL Infuse over: 1 hr, Route: IV, Dosing Weight 91.818 kg, Total Volume: 1,000, Bolus Dose, Priority: STAT, Start date: 01/14/12 7:57:00, Duration: 1 doses or times, Stop date: 01/14/12 8:56:00 ondansetron 2011-03 No Jake Amairani 4 mg, Me moria 03-15 Route: l 13:57: IVP, ONCE, [place] 00 Dosing Weight 91.818, kg, Priority: STAT, Start date: 01/14/12 7:57:00, Stop date: 01/14/12 7:57:00 Saline 2011-03 No Jin Amairani 5 ml, Memoria Flush 0.9% 03-15 Route: l 13:57: IVP, Drug [place] 00 Form: INJ, Dosing Weight 91.818, kg, PRN, PRN Line Flush, Start date: 01/14/12 7:57:00, Duration: 30 day, Stop date: 02/13/12 7:56:00 Sodium 2011-03 No Jin Amairani 1,000 mL, Mem oria Chloride 03-15 Rate: l 0.9% 13:57: 1,000 [place] (Bolus) IV 00 ml/hr, 1,000 mL Infuse over: 1 hr, Route: IV, Dosing Weight 91.818 kg, Total Volume: 1,000, Bolus Dose, Priority: STAT, Start date: 01/14/12 7:57:00, Duration: 1 doses or times, Stop date: 01/14/12 8:56:00 ondansetron 2011-03 No Jake Amairani 4 mg, Me moria 03-15 Route: l 13:57: IVP, ONCE, [place] 00 Dosing Weight 91.818, kg, Priority: STAT, Start date: 01/14/12 7:57:00, Stop date: 01/14/12 7:57:00 Saline 2011-03 No Jin Amairani 5 ml, Memoria Flush 0.9% 03-15 Route: l 13:57: IVP, Drug [place] 00 Form: INJ, Dosing Weight 91.818, kg, PRN, PRN Line Flush, Start date: 01/14/12 7:57:00, Duration: 30 day, Stop date: 02/13/12 7:56:00 Sodium 2011-03 No Jin Amairani 1,000 mL, Mem oria Chloride 03-15 Rate: l 0.9% 13:57: 1,000 Fred (Bolus) IV 00 ml/hr, 1,000 mL Infuse over: 1 hr, Route: IV, Dosing Weight 91.818 kg, Total Volume: 1,000, Bolus Dose, Priority: STAT, Start date: 01/14/12 7:57:00, Duration: 1 doses or times, Stop date: 01/14/12 8:56:00 ondansetron 2011-03 No Jake Amairani 4 mg, Me moria 03-15 Route: l 13:57: IVP, ONCE, [place] 00 Dosing Weight 91.818, kg, Priority: STAT, Start date: 01/14/12 7:57:00, Stop date: 01/14/12 7:57:00 Saline 2011-03 No Jin Amairani 5 ml, Memoria Flush 0.9% 03-15 Route: l 13:57: IVP, Drug [place] 00 Form: INJ, Dosing Weight 91.818, kg, PRN, PRN Line Flush, Start date: 01/14/12 7:57:00, Duration: 30 day, Stop date: 02/13/12 7:56:00 Sodium 2011-03 No Jin Amairani 1,000 mL, Mem oria Chloride 03-15 Rate: l 0.9% 13:57: 1,000 Fred (Bolus) IV 00 ml/hr, 1,000 mL Infuse over: 1 hr, Route: IV, Dosing Weight 91.818 kg, Total Volume: 1,000, Bolus Dose, Priority: STAT, Start date: 01/14/12 7:57:00, Duration: 1 doses or times, Stop date: 01/14/12 8:56:00 ondansetron 2011-03 No Jake Amairani 4 mg, Me moria 03-15 Route: l 13:57: IVP, ONCE, Fred 00 Dosing Weight 91.818, kg, Priority: STAT, Start date: 01/14/12 7:57:00, Stop date: 01/14/12 7:57:00 Saline 2011-03 No Jin Amairani 5 ml, Memoria Flush 0.9% 03-15 Route: l 13:57: IVP, Drug [place] 00 Form: INJ, Dosing Weight 91.818, kg, PRN, PRN Line Flush, Start date: 01/14/12 7:57:00, Duration: 30 day, Stop date: 02/13/12 7:56:00 Sodium 2011-03 No Jin Amairani 1,000 mL, Mem oria Chloride 03-15 Rate: l 0.9% 13:57: 1,000 [place] (Bolus) IV 00 ml/hr, 1,000 mL Infuse over: 1 hr, Route: IV, Dosing Weight 91.818 kg, Total Volume: 1,000, Bolus Dose, Priority: STAT, Start date: 01/14/12 7:57:00, Duration: 1 doses or times, Stop date: 01/14/12 8:56:00 ondansetron 2011-03 No Jake Amairani 4 mg, Me moria 03-15 Route: l 13:57: IVP, ONCE, Fred 00 Dosing Weight 91.818, kg, Priority: STAT, Start date: 01/14/12 7:57:00, Stop date: 01/14/12 7:57:00 Saline 2011-03 No Jake Amairani 5 ml, Memoria Flush 0.9% 03-15 Route: l 13:57: IVP, Drug Fred 00 Form: INJ, Dosing Weight 91.818, kg, PRN, PRN Line Flush, Start date: 01/14/12 7:57:00, Duration: 30 day, Stop date: 02/13/12 7:56:00 Sodium 2011-03 No Jin Amairani 1,000 mL, Mem oria Chloride 03-15 Rate: l 0.9% 13:57: 1,000 Fred (Bolus) IV 00 ml/hr, 1,000 mL Infuse over: 1 hr, Route: IV, Dosing Weight 91.818 kg, Total Volume: 1,000, Bolus Dose, Priority: STAT, Start date: 01/14/12 7:57:00, Duration: 1 doses or times, Stop date: 01/14/12 8:56:00 ondansetron 2011-03 No Jin Amairani 4 mg, Me moria 03-15 Route: l 13:57: IVP, ONCE, [place] 00 Dosing Weight 91.818, kg, Priority: STAT, Start date: 01/14/12 7:57:00, Stop date: 01/14/12 7:57:00 Saline 2011-03 No Jin Amairani 5 ml, Memoria Flush 0.9% 03-15 Route: l 13:57: IVP, Drug [place] 00 Form: INJ, Dosing Weight 91.818, kg, PRN, PRN Line Flush, Start date: 01/14/12 7:57:00, Duration: 30 day, Stop date: 02/13/12 7:56:00 Sodium 2011-03 No Jin Amairani 1,000 mL, Mem oria Chloride 03-15 Rate: l 0.9% 13:57: 1,000 [place] (Bolus) IV 00 ml/hr, 1,000 mL Infuse over: 1 hr, Route: IV, Dosing Weight 91.818 kg, Total Volume: 1,000, Bolus Dose, Priority: STAT, Start date: 01/14/12 7:57:00, Duration: 1 doses or times, Stop date: 01/14/12 8:56:00 ondansetron 2011-03 No Jake Bales 4 mg, Me moria 03-15 Route: l 13:57: IVP, ONCE, [place] 00 Dosing Weight 91.818, kg, Priority: STAT, Start date: 01/14/12 7:57:00, Stop date: 01/14/12 7:57:00 Saline 2011-03 No Jake Amairani 5 ml, Memoria Flush 0.9% 03-15 Route: l 13:57: IVP, Drug [place] 00 Form: INJ, Dosing Weight 91.818, kg, PRN, PRN Line Flush, Start date: 01/14/12 7:57:00, Duration: 30 day, Stop date: 02/13/12 7:56:00 Sodium 2011-03 No Jin Amairani 1,000 mL, Mem oria Chloride 03-15 Rate: l 0.9% 13:57: 1,000 Fred (Bolus) IV 00 ml/hr, 1,000 mL Infuse over: 1 hr, Route: IV, Dosing Weight 91.818 kg, Total Volume: 1,000, Bolus Dose, Priority: STAT, Start date: 01/14/12 7:57:00, Duration: 1 doses or times, Stop date: 01/14/12 8:56:00 ondansetron 2011-03 No Jake Amairani 4 mg, Me moria 03-15 Route: l 13:57: IVP, ONCE, [place] 00 Dosing Weight 91.818, kg, Priority: STAT, Start date: 01/14/12 7:57:00, Stop date: 01/14/12 7:57:00 Saline 2011-03 No Jake Bales 5 ml, Memoria Flush 0.9% 03-15 Route: l 13:57: IVP, Drug [place] 00 Form: INJ, Dosing Weight 91.818, kg, PRN, PRN Line Flush, Start date: 01/14/12 7:57:00, Duration: 30 day, Stop date: 02/13/12 7:56:00 Sodium 2011-03 No Jake Amairani 1,000 mL, Mem oria Chloride 03-15 Rate: l 0.9% 13:57: 1,000 Fred (Bolus) IV 00 ml/hr, 1,000 mL Infuse over: 1 hr, Route: IV, Dosing Weight 91.818 kg, Total Volume: 1,000, [place] Dose, Priority: STAT, Start date: 01/14/12 7:57:00, Duration: 1 doses or times, Stop date: 01/14/12 8:56:00 ondansetron 2011-03 No Jake Bales 4 mg, Me moria 03-15 Route: l 13:57: IVP, ONCE, Fred 00 Dosing Weight 91.818, kg, Priority: STAT, Start date: 01/14/12 7:57:00, Stop date: 01/14/12 7:57:00 Saline 2011-03 No Jake Amairani 5 ml, Memoria Flush 0.9% 03-15 Route: l 13:57: IVP, Drug [place] 00 Form: INJ, Dosing Weight 91.818, kg, PRN, PRN Line Flush, Start date: 01/14/12 7:57:00, Duration: 30 day, Stop date: 02/13/12 7:56:00 Sodium 2011-03 No Jin Amairani 1,000 mL, Mem oria Chloride 03-15 Rate: l 0.9% 13:57: 1,000 [place] (Bolus) IV 00 ml/hr, 1,000 mL Infuse over: 1 hr, Route: IV, Dosing Weight 91.818 kg, Total Volume: 1,000, [place] Dose, Priority: STAT, Start date: 01/14/12 7:57:00, Duration: 1 doses or times, Stop date: 01/14/12 8:56:00 ondansetron 2011-03 No Jake Amairani 4 mg, Me moria 03-15 Route: l 13:57: IVP, ONCE, [place] 00 Dosing Weight 91.818, kg, Priority: STAT, Start date: 01/14/12 7:57:00, Stop date: 01/14/12 7:57:00 Saline 2011-03 No Jin Amairani 5 ml, Memoria Flush 0.9% 03-15 Route: l 13:57: IVP, Drug Fred 00 Form: INJ, Dosing Weight 91.818, kg, PRN, PRN Line Flush, Start date: 01/14/12 7:57:00, Duration: 30 day, Stop date: 02/13/12 7:56:00 Sodium 2011-03 No Jin Amairani 1,000 mL, Mem oria Chloride 03-15 Rate: l 0.9% 13:57: 1,000 [place] (Bolus) IV 00 ml/hr, 1,000 mL Infuse over: 1 hr, Route: IV, Dosing Weight 91.818 kg, Total Volume: 1,000, [place] Dose, Priority: STAT, Start date: 01/14/12 7:57:00, Duration: 1 doses or times, Stop date: 01/14/12 8:56:00 ondansetron 2011-03 No Jake Amairani 4 mg, Me moria 03-15 Route: l 13:57: IVP, ONCE, Fred 00 Dosing Weight 91.818, kg, Priority: STAT, Start date: 01/14/12 7:57:00, Stop date: 01/14/12 7:57:00 Saline 2011-03 No Jin Amairani 5 ml, Memoria Flush 0.9% 03-15 Route: l 13:57: IVP, Drug [place] 00 Form: INJ, Dosing Weight 91.818, kg, PRN, PRN Line Flush, Start date: 01/14/12 7:57:00, Duration: 30 day, Stop date: 02/13/12 7:56:00 Sodium 2011-03 No Jin Amairani 1,000 mL, Mem oria Chloride 03-15 Rate: l 0.9% 13:57: 1,000 [place] (Bolus) IV 00 ml/hr, 1,000 mL Infuse over: 1 hr, Route: IV, Dosing Weight 91.818 kg, Total Volume: 1,000, [place] Dose, Priority: STAT, Start date: 01/14/12 7:57:00, Duration: 1 doses or times, Stop date: 01/14/12 8:56:00 ondansetron 2011-03 No Jake Bales 4 mg, Me moria 03-15 Route: l 13:57: IVP, ONCE, Dosing Weight 91.818, kg, Priority: STAT, Start date: 01/14/12 7:57:00, Stop date: 01/14/12 7:57:00 Saline 2011-03 No Jake Bales 5 ml, Memoria Flush 0.9% 03-15 Route: l 13:57: IVP, Drug Form: INJ, Dosing Weight 91.818, kg, PRN, PRN Line Flush, Start date: 01/14/12 7:57:00, Duration: 30 day, Stop date: 02/13/12 7:56:00 Sodium 2011-03 No Jake Bales 1,000 mL, Mem oria Chloride 03-15 Rate: l 0.9% 13:57: 1,000 [place] (Bolus) IV 00 ml/hr, 1,000 mL Infuse over: 1 hr, Route: IV, Dosing Weight 91.818 kg, Total Volume: 1,000, [place] Dose, Priority: STAT, Start date: 01/14/12 7:57:00, Duration: 1 doses or times, Stop date: 01/14/12 8:56:00 Unknown 2011-03 No Substituti Rodri kg Home -12 on Allowed l Medication 13:56: Fred 52 Unknown 2011-03 No Substituti Rodri kg Home -12 on Allowed l Medication 13:56: Fred 52 Unknown 2011-03 No Substituti Rodri kg Home -12 on Allowed l Medication 13:56: Fred 52 Unknown 2011-03 No Substituti Rodri kg Home -12 on Allowed l Medication 13:56: Fred 52 Unknown 2011-03 No Substituti Rodri kg Home -12 on Allowed l Medication 13:56: Fred 52 Unknown 2011-03 No Substituti Rodri kg Home 1-12 on Allowed l Medication 13:56: Fred 52 Unknown 2011-03 No Substituti Rodri kg Home 1-12 on Allowed l Medication 13:56: Fred 52 Unknown 2011-03 No Substituti Rodri kg Home 1-12 on Allowed l Medication 13:56: Fred 52 Unknown 2011-03 No Substituti Rodri kg Home 1-12 on Allowed l Medication 13:56: Fred 52 Unknown 2011-03 No Substituti Rodri kg Home 1-12 on Allowed l Medication 13:56: Fred 52 Unknown 2011-03 No Substituti Rodri kg Home 1-12 on Allowed l Medication 13:56: Fred 52 Unknown 2011-03 No Substituti Rodri kg Home 1-12 on Allowed l Medication 13:56: Fred 52 Unknown 2011-03 No Substituti Rodri kg Home 1-12 on Allowed l Medication 13:56: Fred 52 Unknown 2011-03 No Substituti Rodri kg Home 1-12 on Allowed l Medication 13:56: Fred 52 Unknown 2011-03 No Substituti Rodri kg Home 1-12 on Allowed l Medication 13:56: Fred 52 Unknown 2011-03 No Substituti Rodri kg Home 1-12 on Allowed l Medication 13:56: Fred 52 Unknown 2011-03 No Substituti Rodri kg Home 1-12 on Allowed l Medication 13:56: Fred 52 Unknown 2011-03 No Substituti Rodri kg Home 1-12 on Allowed l Medication 13:56: Ferd 52 Unknown 2011-03 No Substituti Rodri kg Home 1-12 on Allowed l Medication 13:56: Fred 52 Unknown 2011-03 No Substituti Rodri kg Home 1-12 on Allowed l Medication 13:56: Fred 52 montelukast montelukast No 1 Q1D montelukas [place] 10 mg 10 mg t 10 mg da tablet Take tablet Take tablet Medical 1 tablet 1 tablet Take 1 Group every day every day tablet by oral by oral every day route in route in by oral the evening the evening route in for 90 for 90 the days. days. evening for 90 days. sulfamethox sulfamethox No sulfametho [place] azole 800 azole 800 xazole 800 da mg-trimetho mg-trimetho mg-trimeth Medical prim 160 mg prim 160 mg oprim 160 Group tablet TAKE tablet TAKE mg tablet 1 TABLET BY 1 TABLET BY TAKE 1 MOUTH ON MOUTH ON TABLET BY Saturday, MOUTH ON Saturday, AND SATURDAY AND Saturday acyclovir acyclovir No acyclovir [place] 400 mg 400 mg 400 mg da tablet TAKE tablet TAKE tablet Medical 1 TABLET BY 1 TABLET BY TAKE 1 Group MOUTH TWICE MOUTH TWICE TABLET BY DAILY DAILY MOUTH TWICE DAILY montelukast montelukast No montelukas [place] 10 mg 10 mg t 10 mg da tablet TAKE tablet TAKE tablet Medical 1 TABLET BY 1 TABLET BY TAKE 1 Group MOUTH MOUTH TABLET BY NIGHTLY FOR NIGHTLY FOR MOUTH 30 DAYS 30 DAYS NIGHTLY FOR 30 DAYS sulfamethox sulfamethox No sulfametho [place] azole 800 azole 800 xazole 800 da mg-trimetho mg-trimetho mg-trimeth Medical prim 160 mg prim 160 mg oprim 160 Group tablet TAKE tablet TAKE mg tablet 1 TABLET BY 1 TABLET BY TAKE 1 MOUTH ON MOUTH ON TABLET BY SATURDAY, SATURDAY, MOUTH ON Saturday, AND SATURDAY AND Saturday AND SATURDAY atorvastati atorvastati No atorvastat [place] n 40 mg n 40 mg in 40 mg da tablet TAKE tablet TAKE tablet [facility] 1 TABLET BY 1 TABLET BY TAKE 1 al MOUTH ONCE MOUTH ONCE TABLET BY Health DAILY DAILY MOUTH ONCE Outreac DAILY h Program metoprolol metoprolol No 1 Q1D metoprolol [place] tartrate 25 tartrate 25 tartrate da mg tablet mg tablet 25 mg Epis gyroscope repairer Take 1 Take 1 tablet al tablet tablet Take 1 Health every day every day tablet Out reac by oral by oral every day h route. route. by oral Program route. montelukast montelukast No 1 Q1D montelukas [place] 10 mg 10 mg t 10 mg da tablet Take tablet Take tablet [facility] 1 tablet 1 tablet Take 1 al every day every day tablet Hea lth by oral by oral every day Outr eac route. route. by oral h route. Program pantoprazol pantoprazol No pantoprazo [place] e 40 mg e 40 mg le 40 mg da tablet,brittny tablet,brittny tablet,del [facility] yed release yed release ayed a l TAKE 1 BY TAKE 1 BY release He alth MOUTH TWICE MOUTH TWICE TAKE 1 BY Outreac DAILY DAILY MOUTH h TWICE Program DAILY tamsulosin tamsulosin No tamsulosin [place] 0.4 mg 0.4 mg 0.4 mg da capsule capsule capsule [facility] p TAKE 1 TAKE 1 TAKE 1 al CAPSULE BY CAPSULE BY CAPSULE BY Health MOUTH ONCE MOUTH ONCE MOUTH ONCE Outreac DAILY DAILY DAILY h Program montelukast montelukast No montelukas [place] 10 mg 10 mg t 10 mg da tablet Take tablet Take tablet [facility] 1 tablet 1 tablet Take 1 al every day every day tablet Hea lth by oral by oral every day Outr eac route. route. by oral h route. Program pantoprazol pantoprazol No pantoprazo [place] e 40 mg e 40 mg le 40 mg da tablet,brittny tablet,brittny tablet,del [facility] yed release yed release ayed a l take 1 tab take 1 tab release Health po qd daily po qd daily take 1 tab Outreac po qd h daily Program Immunizations Ordered Filled Date Status Comments Source Immunization Name Immunization Name FLUCELVAX QUAD PF 2021-02-[address] [facility] [facility] FLUCELVAX QUAD PF 2021-02-[address] [facility] [facility] Influenza Virus 2021-02-15 [facility]pleted [facility] Influenza Virus 2021-02-15 Completed [facility]:00[facility]00 [facility] influenza virus 2012-01-15 Completed [facility] [place] vaccine, 00:35:00 inactivated influenza virus 2012-01-15 Completed [facility] [place] vaccine, 00:35:00 inactivated influenza virus 2012-01-15 Completed [facility] vaccine, 00:35:00 inactivated influenza virus 2012-01-15 Completed [facility] [place] vaccine, 00:35:00 inactivated influenza virus 2012-01-15 Completed [facility] [place] vaccine, 00:35:00 inactivated influenza virus 2012-01-15 Completed [facility] [place] vaccine, 00:35:00 inactivated influenza virus 2012-01-15 Completed [facility] vaccine, 00:35:00 inactivated influenza virus 2012-01-15 Completed [facility] [place] vaccine, 00:35:00 inactivated influenza virus 2012-01-15 Completed [facility] [place] vaccine, 00:35:00 inactivated influenza virus 2012-01-15 Completed [facility] [place] vaccine, 00:35:00 inactivated influenza virus 2012-01-15 Completed [facility] [place] vaccine, 00:35:00 inactivated influenza virus 2012-01-15 Completed [facility] [place] vaccine, 00:35:00 inactivated influenza virus 2012-01-15 Completed [facility] vaccine, 00:35:00 inactivated influenza virus 2012-01-15 Completed [facility] vaccine, 00:35:00 inactivated influenza virus 2012-01-15 Completed [facility] [place] vaccine, 00:35:00 inactivated influenza virus 2012-01-15 Completed [facility] vaccine, 00:35:00 inactivated influenza virus 2012-01-15 Completed [facility] vaccine, 00:35:00 inactivated influenza virus 2012-01-15 Completed [facility] vaccine, 00:35:00 inactivated influenza virus 2012-01-15 Completed [facility] [place] vaccine, 00:35:00 inactivated influenza virus Unknown Completed [facility] vaccine, inactivated FLUCELVAX QUAD PF Unknown Completed [facility] Vital Signs Vital Name Observation Time Observation Value Comments Source HEIGHT 2019-12-03 00:00:00 177.8 cm WEIGHT 2019-12-03 00:00:00 95.301 kg Body Weight 2022-11-09 00:00:00 3264 [oz_av] [facility] BP Diastolic 2022-11-09 00:00:00 80 mm[Hg] [facility] BP Systolic 2022-11-09 00:00:00 116 mm[Hg] [facility] Height 2022-11-09 00:00:00 70 [in_i] [facility] BMI (Body Mass 2022-11-09 00:00:00 29.3 kg/m2 [facility] Medical Index) Group HEIGHT 2022-11-06 10:11:00 177.8 cm WEIGHT 2022-11-06 10:11:00 93.622 kg HEIGHT 2022-11-06 10:11:00 177.8 cm WEIGHT 2022-11-06 10:11:00 93.622 kg BP Diastolic 2022-08-02 00:00:00 78 mm[Hg] [facility] Height 2022-08-02 00:00:00 70 [in_i] [facility] BMI (Body Mass 2022-08-02 00:00:00 29.3 kg/m2 [facility] [employer] Medical Index) Group BP Systolic 2022-08-02 00:00:00 116 mm[Hg] [facility] Body Weight 2022-08-02 00:00:00 3264 [oz_av] [facility] HEIGHT 2022-08-01 13:01:00 177.8 cm WEIGHT 2022-08-01 13:01:00 92.262 kg HEIGHT 2022-08-01 13:01:00 177.8 cm WEIGHT 2022-08-01 13:01:00 92.262 kg BMI (Body Mass 2022-06-19 00:00:00 30 kg/m2 [facility] Index) [facility] BP Systolic 2022-06-19 00:00:00 139 mm[Hg] [facility] Body Weight 2022-06-19 00:00:00 3344 [oz_av] [facility] BP Diastolic 2022-06-19 00:00:00 86 mm[Hg] [facility] Height 2022-06-19 00:00:00 70 [in_i] [facility] [facility] BP Diastolic 2022-03-21 00:00:00 81 mm[Hg] [facility] [facility] Height 2022-03-21 00:00:00 70 [in_i] [facility] [facility] BMI (Body Mass 2022-03-21 00:00:00 28.7 kg/m2 [facility] [employer] [facility] [employer] [facility] Index) [facility] BP Systolic 2022-03-21 00:00:00 128 mm[Hg] [facility] [facility] Body Weight 2022-03-21 00:00:00 3200 [oz_av] [facility] [facility] WEIGHT 2021-11-27 02:00:00 99.791 kg WEIGHT 2021-11-27 02:00:00 99.791 kg WEIGHT 2021-11-15 15:40:00 94.212 kg WEIGHT 2021-11-15 15:40:00 94.212 kg WEIGHT 2021-11-02 06:00:00 97.977 kg HEIGHT 2021-10-31 04:20:00 177.8 cm WEIGHT 2021-10-31 04:20:00 87.2 kg WEIGHT 2021-11-02 06:00:00 97.977 kg HEIGHT 2021-10-31 04:20:00 177.8 cm WEIGHT 2021-10-31 04:20:00 87.2 kg WEIGHT 2021-10-24 06:00:00 96.979 kg WEIGHT 2021-10-23 04:00:00 99.156 kg WEIGHT 2021-10-21 04:00:00 95.437 kg WEIGHT 2021-10-20 06:00:00 95.301 kg HEIGHT 2021-10-18 14:56:00 177.8 cm WEIGHT 2021-10-18 14:56:00 95.391 kg WEIGHT 2021-10-24 06:00:00 96.979 kg WEIGHT 2021-10-23 04:00:00 99.156 kg WEIGHT 2021-10-21 04:00:00 95.437 kg WEIGHT 2021-10-20 06:00:00 95.301 kg HEIGHT 2021-10-18 14:56:00 177.8 cm WEIGHT 2021-10-18 14:56:00 95.391 kg HEIGHT 2021-09-21 11:35:00 177.8 cm WEIGHT 2021-09-21 11:35:00 92.897 kg HEIGHT 2021-09-21 11:35:00 177.8 cm WEIGHT 2021-09-21 11:35:00 92.897 kg WEIGHT 2021-09-04 06:54:00 82.691 kg HEIGHT 2021-08-29 23:00:00 175.3 cm WEIGHT 2021-08-29 23:00:00 91.627 kg WEIGHT 2021-09-04 06:54:00 82.691 kg HEIGHT 2021-08-29 23:00:00 175.3 cm WEIGHT 2021-08-29 23:00:00 91.627 kg WEIGHT 2021-08-16 15:25:00 100.653 kg HEIGHT 2021-08-16 15:25:00 175.3 cm HEIGHT 2021-08-04 01:42:00 175.3 cm WEIGHT 2021-08-04 01:42:00 100 kg WEIGHT 2021-08-16 15:25:00 100.653 kg HEIGHT 2021-08-16 15:25:00 175.3 cm HEIGHT 2021-08-04 01:42:00 175.3 cm WEIGHT 2021-08-04 01:42:00 100 kg HEIGHT 2021-01-08 12:09:00 180.3 cm WEIGHT 2021-01-08 12:09:00 98.431 kg HEIGHT 2021-01-08 12:09:00 180.3 cm WEIGHT 2021-01-08 12:09:00 98.431 kg WEIGHT 2019-12-07 00:00:00 95.391 kg HEIGHT 2019-12-07 00:00:00 177.8 cm WEIGHT 2019-12-07 00:00:00 95.391 kg HEIGHT 2019-12-07 00:00:00 177.8 cm Systolic blood 2022-11-06 10:11:00 110 mm[Hg] [facility] Diastolic blood 2022-11-06 10:11:00 84 mm[Hg] [facility] Heart rate 2022-11-06 10:11:00 74 /min [facility] Body temperature 2022-11-06 10:11:00 36.67 Moon [facility] Respiratory rate 2022-11-06 10:11:00 18 /min [facility] Body height 2022-11-06 10:11:00 177.8 cm [facility] Body weight 2022-11-06 10:11:00 93.622 kg [facility] BMI 2022-11-06 10:11:00 29.62 kg/m2 [facility] Oxygen saturation in 2022-11-06 10:11:00 98 /min [facility] Arterial blood by [facility] Pulse oximetry Systolic blood 2022-08-14 18:20:00 127 mm[Hg[facility] Diastolic blood 2022-08-14 18:20:00 76 mm[Hg] [facility] pressure Heart rate 2022-08-14 18:20:00 79 /min [facility] Body temperature 2022-08-14 18:20:00 35.89 Moon [facility] Respiratory rate 2022-08-14 18:20:00 18 /min [facility] Body height 2022-08-14 18:20:00 177.8 cm [facility] Body weight 2022-08-14 18:20:00 90.8 kg [facility] BMI 2022-08-14 18:20:00 28.72 kg/m2 [facility] Oxygen saturation in 2022-08-14 18:20:00 100 /min [facility] Arterial blood by Pulse oximetry Systolic blood 2021-10-24 08:19:00 120 mm[Hg] [facility] Diastolic blood 2021-10-24 08:19:00 75 mm[Hg] [facility] Heart rate 2021-10-24 08:19:00 84 /min [facility] Body temperature 2021-10-24 08:19:00 36.56 Moon [facility] Respiratory rate 2021-10-24 08:19:00 20 /min [facility] Oxygen saturation in 2021-10-24 08:19:00 99 /min [facility] Arterial blood by Medical [facility] Pulse oximetry Body weight 2021-10-24 06:00:00 96.979 kg [facility] BMI 2021-10-24 06:00:00 30.68 kg/m2 [facility] Body height 2021-10-18 15:03:00 177.8 cm [facility] Systolic blood 2021-02-15 21:37:18 134 mm[Hg] [facility] pressure Diastolic blood 2021-02-15 21:37:18 86 mm[Hg] [facility] pressure Heart rate 2021-02-15 21:37:18 58 /min [facility] Body temperature 2021-02-15 21:37:18 36.06 Moon [facility] Respiratory rate 2021-02-15 21:37:18 16 /min [facility] Oxygen saturation in 2021-02-15 21:37:18 99 /min [facility] Arterial blood by Pulse oximetry Body weight 2021-02-10 13:25:23 93.441 kg [facility] BMI 2021-02-10 13:25:23 28.73 kg/m2 [facility] Body height 2021-02-09 23:27:00 180.3 cm [facility] Diastolic (mm Hg) 2012-01-17 14:05:00 Mem o[facility] [place] Systolic (mm Hg) 2012-01-17 14:05:00 Rodri rial [place] Respitory Rate 2012-01-17 14:05:00 Memori al [place] Heart Rate 2012-01-17 14:05:00 [facility] Temperature Oral (F) 2012-01-17 05:39:00 98.0 F [facility] [place] Heart Rate 2012-01-17 05:39:00 [facility] Diastolic (mm Hg) 2012-01-17 05:39:00 Mem orial [facility] Respitory Rate 2012-01-17 05:39:00 Memori al [place] Systolic (mm Hg) 2012-01-17 05:39:00 Rodri rial [facility] Heart Rate 2012-01-16 20:50:00 [facility] Diastolic (mm Hg) 2012-01-16 20:50:00 Mem orial [place] Respitory Rate 2012-01-16 20:50:00 Memori al [facility] Temperature Oral (F) 2012-01-16 20:50:00 97.6 F [facility] [place] Systolic (mm Hg) 2012-01-16 20:50:00 Rodri rial Fred Temperature Oral (F) 2012-01-16 05:47:00 98.1 F [facility] [place] Weight 2012-01-14 18:25:00 [facility] Height 2012-01-14 18:25:00 180.34 cm [facility] [place] Height 2012-01-14 13:53:00 180.34 cm [facility] [place] Weight 2012-01-14 13:53:00 [facility] [place] Procedures Procedure Date / Time Performing Clinician Source Performed COMPREHENSIVE METABOLIC 2022-11-06 11:35:00 Jaylen Rowland [facility] LACTATE DEHYDROGENASE 2022-11-06 11:35:00 Jaylen Rowland [facility] CBC W/PLT COUNT & AUTO 2022-11-06 09:35:00 Rowland, [facility] CBC W/PLT COUNT & AUTO 2022-11-06 09:35:00 Kashif [facility] CBC WITH PLATELET AND 2022-08-14 18:27:00 Lavonne Winter [facility] DIFFERENTIAL COMPREHENSIVE METABOLIC 2022-08-14 18:27:00 Lavonne Winter [facility] PANEL MAGNESIUM LEVEL 2022-08-14 18:27:00 Lavonne [facility] 2022-08-14 18:27:00 Lavonne [facility] CD 4 SUBSET 2022-08-14 18:27:00 Lavonne [facility] IMMUNOGLOBULIN G 2022-08-14 18:27:00 Lavonne Winter [facility] ESTIMATED GFR 2022-08-14 18:27:00 Lavonne Winter [facility] MRI BRAIN W WO CONTRAST 2022-08-14 17:50:00 Lavonne Winter [facility] CBC W/PLT COUNT & AUTO 2022-08-01 11:09:00 Teegavarapu, Estella [facility] DIFFERENTIAL [facility] COMPREHENSIVE METABOLIC 2022-08-01 11:09:00 Teegavarapu, Estella [facility] PANEL [facility] LACTATE DEHYDROGENASE 2022-08-01 11:09:00 CarolinavarapuGentryEstella [facility] CBC W/PLT COUNT & AUTO 2022-08-01 11:09:00 Teegavarapu, Estella [facility] DIFFERENTIAL [facility] CBC WITH PLATELET AND 2022-07-11 16:01:00 Lavonne Winter [facility] DIFFERENTIAL COMPREHENSIVE METABOLIC 2022-07-11 16:01:00 Lavonne Winter [facility] PANEL MAGNESIUM LEVEL 2022-07-11 16:01:00 Lavonne Winter [facility] ESTIMATED GFR 2022-07-11 16:01:00 Lavonne Winter [facility] CBC WITH PLATELET AND 2022-06-20 15:06:00 MoyPascualLavonne A. [facility] DIFFERENTIAL COMPREHENSIVE METABOLIC 2022-06-20 15:06:00 Moy, Lavonne A. [facility] PANEL MAGNESIUM LEVEL 2022-06-20 15:06:00 Moy, [facility] TB NK CELLS 2022-06-20 15:06:00 MoyPascualLavonne A. [facility] IMMUNOGLOBULIN G 2022-06-20 15:06:00 Moy, [facility] ESTIMATED GFR 2022-06-20 15:06:00 MoyPascualLavonne A. [facility] MANUAL DIFFERENTIAL 2022-06-20 15:06:00 MoyPascualLavonne A. [facility] CBC WITH PLATELET AND 2022-06-11 15:25:00 MoyPascualLavonne A. [facility] DIFFERENTIAL COMPREHENSIVE METABOLIC 2022-06-11 15:25:00 MoyDilciae A. [facility] PANEL MAGNESIUM LEVEL 2022-06-11 15:25:00 MoyPascualLavonne A. [facility] LDH 2022-06-11 15:25:00 MoyPascualLavonne A. [facility] ESTIMATED GFR 2022-06-11 15:25:00 Moy, [facility]. [facility] MANUAL DIFFERENTIAL 2022-06-11 15:25:00 Moy, Lavonne A. [facility] CBC WITH PLATELET AND 2022-06-04 16:09:00 MoyLavonne A. [facility] DIFFERENTIAL COMPREHENSIVE METABOLIC 2022-06-04 16:09:00 MoyPascualLavonne A. [facility] PANEL MAGNESIUM LEVEL 2022-06-04 16:09:00 Moy, [facility] A. [facility] ESTIMATED GFR 2022-06-04 16:09:00 Moy, [facility]. [facility] MANUAL DIFFERENTIAL 2022-06-04 16:09:00 Moy, Lavonne A. [facility] IR TUNNELED CENTRAL LINE 2022-05-31 22:10:00 Cortney Ybarra [facility] REMOVAL TRANSFUSE RED BLOOD CELLS 2022-05-31 17:06:00 Cortney Ybarra [facility] TRANSFUSE PLATELET 2022-05-31 10:42:00 [place] [facility] PHERESIS PHOSPHORUS LEVEL 2022-05-31 09:00:00 Tonny [facility] HEPATIC FUNCTION PANEL 2022-05-31 09:00:00 Tonny Whitmore [facility] BASIC METABOLIC PANEL 2022-05-31 09:00:00 [facility] MAGNESIUM LEVEL 2022-05-31 09:00:00 Tonny [facility]more spital ESTIMATED GFR 2022-05-31 09:00:00 Fabian [facility] CBC WITH PLATELET AND 2022-05-31 08:49:00 [facility] DIFFERENTIAL MANUAL DIFFERENTIAL 2022-05-31 08:49:00 [facility] TTE COMPLETE, WO CONTRAST, 2022-05-30 17:00:00 Bart Walters [facility] W DOPPLER ([id number]) CBC WITH PLATELET AND 2022-05-30 08:20:00 [facility] DIFFERENTIAL BASIC METABOLIC PANEL 2022-05-30 08:20:00 [facility] MAGNESIUM LEVEL 2022-05-30 08:20:00 Tonny Whitmore spital ESTIMATED GFR 2022-05-30 08:20:00 [place] [facility] spital TYPE AND SCREEN 2022-05-30 08:20:00 Dominik Walters [facility] MANUAL DIFFERENTIAL 2022-05-30 08:20:00 [facility] PREPARE PLATELET PHERESIS 2022-05-30 08:20:00 Lauren [facility] PREPARE PLATELET PHERESIS 2022-05-30 08:20:00 Kevin Weller [facility] PREPARE RBC 2022-05-30 08:20:00 Cortney Ybarra Ho [facility]ital CBC WITH PLATELET AND 2022-05-29 08:39:00 [facility] DIFFERENTIAL BASIC METABOLIC PANEL 2022-05-29 08:39:00 [facility] MAGNESIUM LEVEL 2022-05-29 08:39:00 Tonny [facility] Ho [facility] ESTIMATED GFR 2022-05-29 08:39:00 [facility]ian [place] [facility] MANUAL DIFFERENTIAL 2022-05-29 08:39:00 [place]ian [place] [facility] PHOSPHORUS LEVEL 2022-05-29 08:39:00 [facility]ian [facility] PHOSPHORUS LEVEL 2022-05-28 08:44:00 Tonny [facility] HEPATIC FUNCTION PANEL 2022-05-28 08:44:00 Tonny Whitmore [facility] CBC WITH PLATELET AND 2022-05-28 08:44:00 Tonny Whitmore [facility] DIFFERENTIAL BASIC METABOLIC PANEL 2022-05-28 08:44:00 [facility] [facility] MAGNESIUM LEVEL 2022-05-28 08:44:00 Tonny Whitmore [facility] ESTIMATED GFR 2022-05-28 08:44:00 Fabian Washington [facility] LDH 2022-05-28 08:44:00 Fabian Washington [facility] MANUAL DIFFERENTIAL 2022-05-28 08:44:00 [facility] BAS[facility] METABOLIC PANEL 2022-05-27 21:33:00 [facility] ESTIMATED GFR 2022-05-27 21:33:00 Fabian Washington [facility] BLOOD CULTURE, AEROBIC & 2022-05-27 06:00:00 [facility] ANAEROBIC BLOOD CULTURE, AEROBIC & 2022-05-27 05:50:00 [facility] ANAEROBIC CBC WITH PLATELET AND 2022-05-27 05:50:00 Tonny Whitmore [facility] DIFFERENTIAL BASIC METABOLIC PANEL 2022-05-27 05:50:00 Tonny Whitmore [facility] MAGNESIUM LEVEL 2022-05-27 05:50:00 Tonny Whitmore [facility] ESTIMATED GFR 2022-05-27 05:50:00 Fabian Washington [facility] MANUAL DIFFERENTIAL 2022-05-27 05:50:00 [facility] CBC WITH PLATELET AND 2022-05-26 07:41:00 Tonny Whitmore [facility] DIFFERENTIAL BASIC METABOLIC PANEL 2022-05-26 07:41:00 [facility] MAGNESIUM LEVEL 2022-05-26 07:41:00 Tonny Whitmore [facility] ESTIMATED GFR 2022-05-26 07:41:00 [facility] spital MANUAL DIFFERENTIAL 2022-05-26 07:41:00 [facility] BLOOD CULTURE, AEROBIC & 2022-05-25 19:29:00 Tonny Whitmore [facility] ANAEROBIC BLOOD CULTURE, AEROBIC & 2022-05-25 19:10:00 Tonny Whitmore [facility] ANAEROBIC TRANSFUSE RED BLOOD CELLS 2022-05-25 13:30:00 [facility] TRANSFUSE PLATELET 2022-05-25 10:36:00 [facility] PHERESIS CBC WITH PLATELET AND 2022-05-25 08:41:00 Tonny Whitmore [facility] DIFFERENTIAL BASIC METABOLIC PANEL 2022-05-25 08:41:00 Tonny Whitmore [facility] MAGNESIUM LEVEL 2022-05-25 08:41:00 Tonny Whitmore [facility] ESTIMATED GFR 2022-05-25 08:41:00 Nghia Wei [facility] spital VANCOMYCIN LEVEL, TROUGH 2022-05-25 08:41:00 [facility] MANUAL DIFFERENTIAL 2022-05-25 08:41:00 [facility] CLO[facility]FFICILE 2022-05-24 14:36:00 [facility] TOXIN GENE (QUALITATIVE REAL-TIME PCR) TRANSFUSE PLATELET 2022-05-24 14:10:00 [facility] PHERESIS TRANSFUSE PLATELET 2022-05-24 13:00:00 [facility] WITH PLATELET AND 2022-05-24 08:10:00 [facility] DIFFERENTIAL BASIC METABOLIC PANEL 2022-05-24 08:10:00 [facility] MAGNESIUM LEVEL 2022-05-24 08:10:00 Tonny Whitmore [facility] ESTIMATED GFR 2022-05-24 08:10:00 Nghia Wei spital HEPATIC FUNCTION PANEL 2022-05-24 08:10:00 [facility] PHOS[facility]ORUS [facility] 2022-05-24 08:10:00 Bradlywily [facility] H ospital MANUAL DIFFERENTIAL 2022-05-24 08:10:00 [facility] 2022-05-23 21:54:00 [facility] URINALYSIS SCREEN AND 2022-05-23 21:54:00 [facility] MICROSCOPY, WITH REFLEX TO CULTURE XR CHEST 1 VW PORTABLE 2022-05-23 21:46:50 [facility] BLOOD CULTURE, AEROBIC & 2022-05-23 21:37:00 [facility] ANAEROBIC BLOOD CULTURE, AEROBIC & 2022-05-23 21:35:00 [facility] ANAEROBIC CBC WITH PLATELET AND 2022-05-23 08:23:00 [facility] DIFFERENTIAL BASIC METABOLIC PANEL 2022-05-23 08:23:00 [facility] MAGNESIUM LEVEL 2022-05-23 08:23:00 Tonny Whitmore spital ESTIMATED GFR 2022-05-23 08:23:00 Gagandeep [facility] spital MANUAL DIFFERENTIAL 2022-05-23 08:23:00 [facility] CBC WITH PLATELET AND 2022-05-22 07:42:00 [facility] DIFFERENTIAL BASIC METABOLIC PANEL 2022-05-22 07:42:00 [facility] MAGNESIUM LEVEL 2022-05-22 07:42:00 Tonny Whitmore [facility] spital TYPE AND SCREEN 2022-05-22 07:42:00 [place] [facility] ESTIMATED GFR 2022-05-22 07:42:00 Gagandeep [facility] spital MANUAL DIFFERENTIAL 2022-05-22 07:42:00 [facility] PRE[facility] PL[facility]LET PHERESIS 2022-05-22 07:42:00 Fabian Washington [facility] PREPARE RBC 2022-05-22 07:42:00 [facility]IS 2022-05-22 07:42:00 [facility] CBC WITH PLATELET AND 2022-05-21 10:37:00 [facility] DIFFERENTIAL BASIC METABOLIC PANEL 2022-05-21 10:37:00 [facility] MAGNESIUM LEVEL 2022-05-21 10:37:00 Tonny Whitmore [facility] ESTIMATED GFR 2022-05-21 10:37:00 CarrumNghia Ho spital LDH 2022-05-21 10:37:00 CarrumNghia Ho spital HEPATIC FUNCTION PANEL 2022-05-21 10:37:00 Carrwily [facility] PHOSPHORUS LEVEL 2022-05-21 10:37:00 CarrNghia julien [facility] MANUAL DIFFERENTIAL 2022-05-21 10:37:00 Carrwily [facility] CBC WITH PLATELET AND 2022-05-20 08:25:00 [facility] DIFFERENTIAL BASIC METABOLIC PANEL 2022-05-20 08:25:00 [facility] MAGNESIUM LEVEL 2022-05-20 08:25:00 Tonny Whitmore [facility] ESTIMATED GFR 2022-05-20 08:25:00 CarrumNghia Ho spital SMEAR REVIEW 2022-05-20 08:25:00 CarrumNghia Ho spital CBC WITH PLATELET AND 2022-05-19 08:01:00 [facility] DIFFERENTIAL BASIC METABOLIC PANEL 2022-05-19 08:01:00 [facility] MAGNESIUM LEVEL 2022-05-19 08:01:00 Tonny Whitmore [facility] ESTIMATED GFR 2022-05-19 08:01:00 CarrumNghia Ho spital SMEAR REVIEW 2022-05-19 08:01:00 CarrNghia julien Ho spital CBC WITH PLATELET AND 2022-05-18 08:31:00 [facility] DIFFERENTIAL BASIC METABOLIC PANEL 2022-05-18 08:31:00 [facility] MAGNESIUM LEVEL 2022-05-18 08:31:00 [facility] ESTIMATED GFR 2022-05-18 08:31:00 Carrwily Nghia [facility] spital CBC WITH PLATELET AND 2022-05-17 08:25:00 [facility] DIFFERENTIAL BASIC METABOLIC PANEL 2022-05-17 08:25:00 [facility] MAGNESIUM LEVEL 2022-05-17 08:25:00 [facility] PHOSPHORUS LEVEL 2022-05-17 08:25:00 [facility] ESTIMATED GFR 2022-05-17 08:25:00 CarrNghia julien [facility] spital TYPE AND SCREEN 2022-05-17 08:25:00 [facility] RESPIRATORY PATHOGEN PANEL 2022-05-16 12:29:00 [facility] WITH COVID-19 RT-PCR CBC WITH PLATELET AND 2022-05-16 08:18:00 [facility] DIFFERENTIAL BASIC METABOLIC PANEL 2022-05-16 08:18:00 [facility] MAGNESIUM LEVEL 2022-05-16 08:18:00 Tonny Whitmore [facility] ESTIMATED GFR 2022-05-16 08:18:00 CarrNghia julien spital MAGNESIUM LEVEL 2022-05-15 08:35:00 Tonny Whitmore [facility] spital BASIC METABOLIC PANEL 2022-05-15 08:35:00 [facility] CBC WITH PLATELET AND 2022-05-15 08:35:00 [facility] DIFFERENTIAL ESTIMATED GFR 2022-05-15 08:35:00 CarrNghia julienist Ho spital CBC WITH PLATELET AND 2022-05-14 08:54:00 [facility] DIFFERENTIAL COMPREHENSIVE METABOLIC 2022-05-14 08:54:00 [facility] PANEL MAGNESIUM LEVEL 2022-05-14 08:54:00 [facility] PHOSPHORUS LEVEL 2022-05-14 08:54:00 [facility] ESTIMATED GFR 2022-05-14 08:54:00 Barrett, [facility] CBC WITH PLATELET AND 2022-05-13 09:01:00 [facility] DIFFERENTIAL COMPREHENSIVE METABOLIC 2022-05-13 09:01:00 [facility] PANEL MAGNESIUM LEVEL 2022-05-13 09:01:00 [facility] PHOSPHORUS LEVEL 2022-05-13 09:01:00 [facility] ESTIMATED GFR 2022-05-13 09:01:00 [place] [facility] CBC WITH PLATELET AND 2022-05-12 09:10:00 [facility] DIFFERENTIAL COMPREHENSIVE METABOLIC 2022-05-12 09:10:00 [facility] PANEL MAGNESIUM LEVEL 2022-05-12 09:10:00 [facility] PHOSPHORUS LEVEL 2022-05-12 09:10:00 [facility] ESTIMATED GFR 2022-05-12 09:10:00 [facility] URINALYSIS, AUTOMATED WITH 2022-05-11 19:14:00 Nathan Aguilar [facility] MICROSCOPY FIBRINOGEN 2022-05-11 19:12:00 Nathan Aguilar Ho spital PARTIAL THROMBOPLASTIN 2022-05-11 19:12:00 Nathan Aguilar [facility] TIME (PTT) PROTHROMBIN TIME WITH INR 2022-05-11 19:12:00 Ranulfo [facility] CBC WITH PLATELET AND 2022-05-11 19:11:00 Nathan Aguilar [facility] DIFFERENTIAL COMPREHENSIVE METABOLIC 2022-05-11 19:11:00 Nathan Aguilar [facility] PANEL LDH 2022-05-11 19:11:00 Nathan Aguilar Ho spital MAGNESIUM LEVEL 2022-05-11 19:11:00 Nathan Aguilar Ho spital PHOSPHORUS LEVEL 2022-05-11 19:11:00 Nathan Aguilar H ospital URIC ACID LEVEL 2022-05-11 19:11:00 Nathan Aguilar spital ESTIMATED GFR 2022-05-11 19:11:00 Nathan Aguilar spital PREALBUMIN LEVEL 2022-05-11 19:10:00 Nathan Aguilar ospital IR TUNNELED CENTRAL LINE 2022-05-11 17:37:00 Nathan Aguilar [facility] PLACEMENT COVID-19 QUALITATIVE 2022-05-10 16:16:00 [facility] CBC WITH PLATELET AND 2022-05-10 16:16:00 Lavonne Winter [facility] DIFFERENTIAL COMPREHENSIVE METABOLIC 2022-05-10 16:16:00 Lavonne Winter [facility] PANEL MAGNESIUM LEVEL 2022-05-10 16:16:00 Lavonne Winter Ho spital LDH 2022-05-10 16:16:00 Lavonne Winter Ho spital ESTIMATED GFR 2022-05-10 16:16:00 Lavonne Winter [facility] spital MANUAL DIFFERENTIAL 2022-05-10 16:16:00 Lavonne Winter [facility] BASIC METABOLIC PANEL 2022-04-24 08:38:00 Luis Martinez [facility] MAGNESIUM LEVEL 2022-04-24 08:38:00 Luis Martinez spital CBC WITH PLATELET AND 2022-04-24 08:38:00 Luis Martinez [facility] DIFFERENTIAL ESTIMATED GFR 2022-04-24 08:38:00 [facility]UAL DIFFERENTIAL 2022-04-24 08:38:00 Gagandeep [facility] HEPATIC FUNCTION PANEL 2022-04-24 08:38:00 Nghia Wei [facility] CBC WITH PLATELET AND 2022-04-24 00:28:00 Fabian Washington [facility] DIFFERENTIAL MANUAL DIFFERENTIAL 2022-04-24 00:28:00 Fabian Washington [facility] HEMODIALYSIS CATHETER 2022-04-23 23:23:18 Rubi Pennington [facility] PLACEMENT HEMODIALYSIS CATHETER 2022-04-23 20:17:44 Juan Matos [facility] PLACEMENT HEMODIALYSIS CATHETER 2022-04-23 17:30:00 Rubi Pennington [facility] PLACEMENT BASIC METABOLIC PANEL 2022-04-23 10:50:[address] [facility] MAGNESIUM LEVEL 2022-04-23 10:50:00 Luis Martinez [facility] spital CBC WITH PLATELET AND 2022-04-23 10:50:00 [facility] DIFFERENTIAL VANCOMYCIN LEVEL, RANDOM 2022-04-23 10:50:00 [facility] LACTIC ACID LEVEL 2022-04-23 10:50:00 [facility] ESTIMATED GFR 2022-04-23 10:50:00 Gagandeep [facility] spital HEPATIC FUNCTION PANEL 2022-04-23 10:50:00 Gagandeep [facility] PHOSPHORUS LEVEL 2022-04-23 10:50:00 Gagandeep [facility] ospital MANUAL DIFFERENTIAL 2022-04-23 10:50:00 Gagandeep [facility] URINE CULTURE 2022-04-22 23:20:00 Tu, [facility] URINALYSIS SCREEN AND 2022-04-22 23:20:00 Tu, [facility] MICROSCOPY, WITH REFLEX TO CULTURE LACTIC ACID LEVEL - NOW 2022-04-22 22:20:00 Tu, [facility] AND REPEAT 2X EVERY [address] ANGIOGRAM PE CHEST 2022-04-22 21:39:41 Tu, [facility] TROPONIN T 2022-04-22 18:59:00 Tu, [facility] LACTIC ACID LEVEL - NOW 2022-04-22 18:59:00 Tu, [facility] AND REPEAT 2X EVERY 3 HOURS [place] CRITICAL CARE 2022-04-22 18:16:15 Tu, [facility] ILL/INJURED PATIENT INIT 30-74 MIN ECG ED PRELIMINARY 2022-04-22 18:16:15 Tu, [facility] INTERPRETATION BLOOD CULTURE, AEROBIC & 2022-04-22 17:41:00 Tu, [facility] ANAEROBIC COVID-19, INFLUENZA A&B, 2022-04-22 17:37:00 Tu, [facility] AND RSV QUALITATIVE RT-PCR CBC WITH PLATELET AND 2022-04-22 17:37:00 Tu, [facility] DIFFERENTIAL PROTHROMBIN TIME WITH INR 2022-04-22 17:37:00 Tu, [facility] PARTIAL THROMBOPLASTIN 2022-04-22 17:37:00 Tu, [facility] TIME (PTT) COMPREHENSIVE METABOLIC 2022-04-22 17:37:00 Tu, [facility] PANEL TROPONIN T 2022-04-22 17:37:00 Tu, [facility] B NATRIURETIC PEPTIDE 2022-04-22 17:37:00 Tu, [facility] LACTIC ACID LEVEL - NOW 2022-04-22 17:37:00 Tu, [facility] AND REPEAT 2X EVERY 3 HOURS ESTIMATED GFR 2022-04-22 17:37:00 Tu, [facility] MANUAL DIFFERENTIAL 2022-04-22 17:37:00 Tu, [facility] BLOOD CULTURE, AEROBIC & 2022-04-22 17:36:00 Tu, [facility] ANAEROBIC ECG 12-LEAD 2022-04-22 16:46:26 Tu, [facility] XR CHEST 1 VW PORTABLE 2022-04-22 16:46:25 Tu, [facility] TRANSFUSE PLATELET 2022-04-20 17:44:00 Obblake, Reneamichelle Seaman [facility] PHERESIS TRANSFUSE PLATELET 2022-04-20 16:55:00 Obi, Renea [facility] PHERESIS COVID-19 QUALITATIVE 2022-04-20 15:56:00 Tim Farrell [facility] RT-PCR ABO AND RH CONFIRMATION BY 2022-04-20 15:20:00 Ra Nelson [facility] PROTOCOL CBC WITH PLATELET AND 2022-04-20 14:12:00 Lavonne Winter [facility] DIFFERENTIAL COMPREHENSIVE METABOLIC 2022-04-20 14:12:00 Lavonne Winter [facility] PANEL MAGNESIUM LEVEL 2022-04-20 14:12:00 Lavonne Winter Ho spital TYPE AND SCREEN 2022-04-20 14:12:00 [facility] ESTIMATED GFR 2022-04-20 14:12:00 Lavonne Winter Ho spital SMEAR REVIEW 2022-04-20 14:12:00 Lavonne Winter Ho spital PREPARE PLATELET PHERESIS 2022-04-20 14:12:00 [facility] PREPARE PLATELET PHERESIS 2022-04-20 14:12:00 [facility] CBC WITH PLATELET AND 2022-04-17 14:05:00 Lavonne Winter [facility] DIFFERENTIAL COMPREHENSIVE METABOLIC 2022-04-17 14:05:00 Lavonne Winter [facility] PANEL MAGNESIUM LEVEL 2022-04-17 14:05:00 Lavonne Winter Ho spital LDH 2022-04-17 14:05:00 Lavonne Winter Ho spital ESTIMATED GFR 2022-04-17 14:05:00 Lavonne Winter spital MANUAL DIFFERENTIAL 2022-04-17 14:05:00 Lavonne Winter [facility] CBC WITH PLATELET AND 2022-04-12 09:56:00 Tim Farrell [facility] DIFFERENTIAL BASIC METABOLIC PANEL 2022-04-12 09:56:00 Tim Farrell [facility] MAGNESIUM LEVEL 2022-04-12 09:56:00 [facility]IC ACID LEVEL 2022-04-12 09:56:00 Veronika Rausch [facility] HEPATIC FUNCTION PANEL 2022-04-12 09:56:00 Weston Liu [facility] Sandra Brit PHOSPHORUS LEVEL 2022-04-12 09:56:00 Weston Liu [facility] Sandra Brit ESTIMATED GFR 2022-04-12 09:56:00 [facility] 2022-04-12 09:56:00 [facility] CBC WITH PLATELET AND 2022-04-11 09:50:[address] [facility] DIFFERENTIAL BASIC METABOLIC PANEL 2022-04-11 09:50:00 [facility] MAGNESIUM LEVEL 2022-04-11 09:50:00 [facility] spital URIC ACID LEVEL 2022-04-11 09:50:00 [facility] EST[facility] GFR 2022-04-11 09:50:00 [facility] MANUAL DIFFERENTIAL 2022-04-11 09:50:00 [facility] PICC INSERTION REQUEST 2022-04-10 17:25:58 Divinagrnegrita, [facility] XR PICC CHEST PORTABLE 2022-04-10 16:58:34 [facility] WITH [facility]ATELET AND 2022-04-10 14:20:00 Cortney Ybarra [facility] DIFFERENTIAL PROTHROMBIN TIME WITH INR 2022-04-10 14:20:00 Cortney Ybarra [facility] PARTIAL THROMBOPLASTIN 2022-04-10 14:20:00 Cortney Ybarra [facility] TIME (PTT) COMPREHENSIVE METABOLIC 2022-04-10 14:20:00 Cortney Ybarra [facility] PANEL MAGNESIUM LEVEL 2022-04-10 14:20:00 Cortney Ybarra spital PHOSPHORUS LEVEL 2022-04-10 14:20:00 Cortney Ybarra ospital URIC ACID LEVEL 2022-04-10 14:20:00 Cortney Ybarra spital BILIRUBIN DIRECT 2022-04-10 14:20:00 Cortney Ybarra ospital ESTIMATED GFR 2022-04-10 14:20:00 Cortney Ybarra Ho spital MANUAL DIFFERENTIAL 2022-04-10 14:20:00 Cortney Ybarra [facility] COVID-19 QUALITATIVE 2022-04-09 00:00:00 Ra Nelson [facility] RT-PCR LDH 2022-03-27 17:33:00 Lavonne Winter Ho spital [facility] SER[facility]Y TEST 2022-03-27 17:33:00 Lavonne Winter [facility] COMPREHENSIVE METABOLIC 2022-03-27 17:33:00 Lavonne Winter [facility] PANEL MAGNESIUM LEVEL 2022-03-27 17:33:00 Lavonne Winter Ho spital ESTIMATED GFR 2022-03-27 17:33:00 Lavonne Winterist Ho spital CBC WITH PLATELET AND 2022-03-27 17:20:00 Lavonne Winter [facility] DIFFERENTIAL MANUAL DIFFERENTIAL 2022-03-27 17:20:00 Lavonne Winter [facility] ESTIMATED GFR 2022-03-27 15:25:00 Lavonne Winterist Ho spital TOXOPLASMA IGM AB 2022-03-14 18:46:00 Lavonne Winter [facility] ECG 12-LEAD 2022-03-14 17:57:24 Lavonne Winter Ho spital URINE CULTURE 2022-03-14 17:52:00 Lavonne Winter Ho spital CBC WITH PLATELET AND 2022-03-14 17:52:00 Lavonne Winter [facility] DIFFERENTIAL PROTHROMBIN TIME WITH INR 2022-03-14 17:52:00 Lavonne Winter [facility] PARTIAL THROMBOPLASTIN 2022-03-14 17:52:00 Lavonne Winter [facility] TIME (PTT) COMPREHENSIVE METABOLIC 2022-03-14 17:52:00 Lavonne Winter [facility] PANEL LDH 2022-03-14 17:52:00 Lavonne Winter Ho spital URIC ACID LEVEL 2022-03-14 17:52:00 Lavonne Winter Ho spital PHOSPHORUS LEVEL 2022-03-14 17:52:00 [facility] 2022-03-14 17:52:00 [facility] URINALYSIS SCREEN AND 2022-03-14 17:52:00 Lavonne Winter [facility] MICROSCOPY, WITH REFLEX TO CULTURE [facility] SEROLOGY TEST 2022-03-14 17:52:00 Lavonne Winter [facility] TYPE AND SCREEN 2022-03-14 17:52:00 [facility] B NATRIURETIC PEPTIDE 2022-03-14 17:52:00 Lavonne Winter [facility] PROSTATE SPECIFIC ANTIGEN 2022-03-14 17:52:00 Lavonne Winter [facility] TOXOPLASMA GONDII 2022-03-14 17:52:00 Lavonne Winter [facility] ANTIBODY, IGG MARTA-HALL VIRUS 2022-03-14 17:52:00 Lavonne Winter [facility] ANTIBODY TEST STRONGYLOIDES AB IGG TUSHAR 2022-03-14 17:52:00 Lavonne Winter [facility] ESTIMATED GFR 2022-03-14 17:52:00 Lavonne Winter [facility] spital MANUAL DIFFERENTIAL 2022-03-14 17:52:00 Lavonne Winter [facility] SPIROMETRY, DIFFUSION, 2022-03-14 15:32:07 Ra Nelson [facility] LUNG VOLUMES MRI BRAIN W WO CONTRAST 2022-03-14 00:46:00 Ra Nelson [facility] XR CHEST 2 VW 2022-03-13 20:59:09 [facility] SPECT CA SC TECH ONLY 2022-03-13 19:46:21 Ra Nelson [facility] ORDER CV STRESS TEST NUCLEAR 2022-03-13 19:30:27 Ra Nelson [facility] CARDIO NM MYOCARDIAL PERFUSION 2022-03-13 19:30:27 Ra Nelson [facility] STRESS REST 1 DAY COVID-19 QUALITATIVE 2022-03-09 16:45:00 Provider, Not In [facility] RT-PCR System CBC W/PLT COUNT & AUTO 2021-10-24 04:53:00 Bolivar Griffiths [facility] DIFFERENTIAL [facility] CBC W/PLT COUNT & AUTO 2021-10-24 04:53:00 Bolivar Griffiths [facility] S t kes DIFFERENTIAL [facility] METHOTREXATE LEVEL 2021-10-23 11:35:00 Amer [facility] CBC W/PLT COUNT & AUTO 2021-10-23 03:34:00 GriffithsBolivar mcfarlane [facility] S t [facility] DIFFERENTIAL [facility] CBC W/PLT COUNT & AUTO 2021-10-23 03:34:00 GriffithsBolivar mcfarlane [facility] t [facility] DIFFERENTIAL [facility] METHOTREXATE LEVEL 2021-10-22 17:22:00 [facility] 2021-10-22 04:58:00 Griffiths [facility] URIC ACID 2021-10-22 04:54:00 Amer [facility] CBC W/PLT COUNT & AUTO 2021-10-22 04:54:00 GriffithsBolivar mcfarlane [facility] S t [facility] CBC W/PLT COUNT & AUTO 2021-10-22 04:54:00 GriffithsBolivar mcfarlane [facility] S t [facility] METHOTREXATE LEVEL 2021-10-21 17:15:00 Bolivar Griffiths [facility] PH, URINE 2021-10-21 05:09:00 [facility] CBC W/PLT COUNT & AUTO 2021-10-21 04:54:00 Shanta Guevara [facility] COMPREHENSIVE METABOLIC 2021-10-21 04:54:00 Shanta Guevara [facility] URIC ACID 2021-10-21 04:54:00 Amer [facility] CBC W/PLT COUNT & AUTO 2021-10-21 04:54:00 Shanta Guevara [facility] COMPREHENSIVE METABOLIC 2021-10-20 07:33:00 Shanta Guevara [facility] URIC ACID 2021-10-20 07:33:00 Mariela Awan [facility] PH, URINE 2021-10-20 07:10:00 Ari [facility] CBC W/PLT COUNT & AUTO 2021-10-20 04:41:00 Shanta Guevara [facility] CBC W/PLT COUNT & AUTO 2021-10-20 04:41:00 Shanta Guevara [facility] PH, URINE 2021-10-20 03:[facility] WITHOUT [facility] 2021-10-19 09:32:00 Shayy Alan [facility] CBC W/PLT COUNT & AUTO 2021-10-19 04:27:00 Shanta Guevara [facility] COMPREHENSIVE METABOLIC 2021-10-19 04:27:00 Shanta Guevara [facility] MAGNESIUM 2021-10-19 04:27:00 Sekou Pressley [facility] CBC W/PLT COUNT & AUTO 2021-10-19 04:27:00 Shnata Guevara [facility] URINALYSIS W/ MICROSCOPIC 2021-10-18 18:32:00 Shanta Guevara [facility] SARS-COV2/RT-PCR ([facility] & 2021-10-18 11:16:00 Suraj Alan [facility] REF LABS) [facility] CBC W/PLT COUNT & AUTO 2021-10-07 04:57:00 Yenifer Storm [facility] BASIC METABOLIC PANEL (7) 2021-10-07 04:57:00 Yenifer Storm [facility] MAGNESIUM 2021-10-07 04:57:00 EmeterioYenifernury [facility] CBC W/PLT COUNT & AUTO 2021-10-07 04:57:00 EmeterioYenifernury C HI [facility] (CELLAVISION MANUAL DIFF) 2021-10-07 04:57:00 EmeterioYeniferi f [facility] CBC W/PLT COUNT & AUTO 2021-10-06 03:56:00 Zuly Todd CH, I [facility] DIFFERENTIAL [facility] PERIPHERAL BLOOD SMEAR - 2021-10-06 03:56:00 Zuly Todd [facility] PATH REVIEW [facility] TYPE AND SCREEN, AUTOMATED 2021-10-06 03:56:00 Donato Todd [facility] CBC W/PLT COUNT & AUTO 2021-10-06 03:56:00 Zuly Todd CH, I [facility] (CELLAVISION MANUAL DIFF) 2021-10-06 03:56:00 Zuly Todd [facility] PH, URINE 2021-09-26 06:47:00 Magda Waite [facility] MAGNESIUM 2021-09-26 05:17:00 Hajoaquina-Lalitha [facility] CBC W/PLT COUNT & AUTO 2021-09-26 05:17:00 [facility] COMPREHENSIVE METABOLIC 2021-09-26 05:17:00 Estella De La Garza [facility] PANEL [facility] CBC W/PLT COUNT & AUTO 2021-09-26 05:17:00 [facility] DIFFERENTIAL [facility] METHOTREXATE LEVEL 2021-09-26 01:34:00 Magda Waite [facility] PH, URINE 2021-09-25 05:28:00 Magda Waite [facility] MAGNESIUM 2021-09-25 04:55:00 Haj-Isfish [facility] CBC W/PLT COUNT & AUTO 2021-09-25 04:55:[address]ENTIAL [facility] 2021-09-25 04:55:00 Teeallegravarapu [facility] CBC W/PLT COUNT & AUTO 2021-09-25 04:55:00 Coreyoneal [facility] DIFFERENTIAL [facility] LEVEL 2021-09-25 01:33:00 Magda Waite [facility], URINE 2021-09-24 05:06:00 Magda Waite [facility] 2021-09-24 04:54:00 Jacquie [facility] CBC W/PLT COUNT & AUTO 2021-09-24 04:54:00 Frederic [facility] DIFFERENTIAL [facility] 2021-09-24 04:54:00 Teejune [facility] CBC W/PLT COUNT & AUTO 2021-09-24 04:54:00 Frederic [facility] DIFFERENTIAL [facility] LEVEL 2021-09-24 01:27:00 Magda Waite [facility] PH, URINE 2021-09-23 06:05:00 Magda Waite [facility] MAGNESIUM 2021-09-23 06:01:00 Jacquie [facility] CBC W/PLT COUNT & AUTO 2021-09-23 06:01:00 Teeallegravarnicoleu [facility] DIFFERENTIAL [facility] 2021-09-23 06:01:00 Teejune [facility] CBC W/PLT COUNT & AUTO 2021-09-23 06:01:00 Frederic [facility] DIFFERENTIAL [facility] PH, URINE 2021-09-22 11:11:00 Mariann, Magda P. [facility] PH, URINE 2021-09-22 07:27:00 [facility] MAGNESIUM 2021-09-22 04:58:00 [facility]IC ACID 2021-09-22 04:58:00 [facility] CBC W/PLT COUNT & AUTO 2021-09-22 04:58:00 Teeilvarapu [facility] COMPREHENSIVE METABOLIC 2021-09-22 04:58:00 [facility] CBC W/PLT COUNT & AUTO 2021-09-22 04:58:00 [facility] PH, URINE 2021-09-21 16:18:00 [facility] XR CHEST 1 VIEW PORTABLE / 2021-09-21 15:47:00 [facility] CBC W/PLT COUNT & AUTO 2021-09-21 13:13:00 [facility] PROTHROMBIN TIME/INR 2021-09-21 13:13:00 [facility] COMPREHENSIVE METABOLIC 2021-09-21 13:13:00 [facility] I [facility] URIC ACID 2021-09-21 13:13:00 [facility] MAGNESIUM 2021-09-21 13:13:00 [facility] W/PLT COUNT & AUTO 2021-09-21 13:13:00 [facility], [facility] BASIC METABOLIC PANEL (7) 2021-09-12 05:01:00 Miguel Page [facility] CBC (HEMOGRAM ONLY) 2021-09-12 05:01:00 Eldon Page [facility] SARS-COV2/RT-PCR ([facility] & 2021-09-11 18:03:00 Zuly Todd [facility] REF LABS) [facility] BASIC METABOLIC PANEL (7) 2021-09-10 04:54:00 Miguel Page [facility] CBC W/PLT COUNT & AUTO 2021-09-10 04:54:00 Eldon Page [facility] CBC W/PLT COUNT & AUTO 2021-09-10 04:54:00 Eldon Page [facility] (CELLAVISION MANUAL DIFF) 2021-09-10 04:54:00 [facility]OL[facility] PANEL (7) 2021-09-09 08:10:00 [facility] CBC W/PLT COUNT & AUTO 2021-09-09 08:10:00 Eldon Page [facility] CBC W/PLT COUNT & AUTO 2021-09-09 08:10:00 Eldon Page [facility] (CELLAVISION MANUAL DIFF) 2021-09-09 08:10:00 [facility] BASIC METABOLIC PANEL (7) 2021-09-08 05:29:00 Miguel Page [facility] CBC W/PLT COUNT & AUTO 2021-09-08 05:29:00 Eldon Page [facility] CBC W/PLT COUNT & AUTO 2021-09-08 05:29:00 Eldon Page [facility] (CELLAVISION MANUAL DIFF) 2021-09-08 05:29:00 [facility] CBC W/PLT COUNT & AUTO 2021-09-07 05:24:00 Zuly Todd [facility] BASIC METABOLIC PANEL (7) 2021-09-07 05:24:00 Zuly Todd [facility] CBC W/PLT COUNT & AUTO 2021-09-07 05:24:00 Zuly [facility] (CELLAVISION MANUAL DIFF) 2021-09-07 05:24:00 [facility] UNDER ANESTHESIA, 2021-09-06 16:19:[address] [facility] PLACEMENT,SETON 2021-09-06 16:19:00 [facility] FA[facility] 2021-09-06 14:06:00 Rox [facility] (VWF) [facility] ACTIVITY 2021-09-06 14:06:00 [place] [facility] VON [place]IL[place] FACTOR 2021-09-06 14:05:00 [place] [facility] (VWF) [facility] CBC W/PLT COUNT & AUTO 2021-09-06 05:11:00 Zuly Todd [facility] BASIC METABOLIC PANEL (7) 2021-09-06 05:11[facility] 2021-09-06 05:11:[address] [facility] CBC W/PLT COUNT & AUTO 2021-09-06 05:11:00 Ann Marie Ramires [facility] (CELLAVISION MANUAL DIFF) 2021-09-06 05:11:00 Ann Marie Ramires [facility] TYPE AND SCREEN, AUTOMATED 2021-09-05 18:16:00 Jason Mitzi [facility] CBC W/PLT COUNT & AUTO 2021-09-05 05:05:00 [facility]OL[facility] PANEL (7) 2021-09-05 05:05:00 [facility] 2021-09-05 05:05:00 Ann Marie Ramires [facility] PHOSPHORUS 2021-09-05 05:05:00 [facility] CBC W/PLT COUNT & AUTO 2021-09-05 05:05:00 [facility] (CELLAVISION MANUAL DIFF) 2021-09-05 05:05:00 [facility] Ray [facility] SARS-COV2/RT-PCR ([facility] & 2021-09-04 17:48:00 Zuly Todd [facility] REF LABS) [facility] CT PELVIS WITHOUT IV 2021-09-04 10:19:00 Geo Vitale [facility] CBC W/PLT COUNT & AUTO 2021-09-04 05:47:00 [facility] BASIC METABOLIC PANEL (7) 2021-09-04 05:47:00 [facility] MAGNESIUM 2021-09-04 05:47:00 [facility] PHOSPHORUS 2021-09-04 05:47:00 [facility] CBC W/PLT COUNT & AUTO 2021-09-04 05:47:00 [facility] Ray [facility] (CELLAVISION MANUAL DIFF) 2021-09-04 05:47:00 [facility] Ray [facility] CBC W/PLT COUNT & AUTO 2021-09-03 06:32:00 [facility] BASIC METABOLIC PANEL (7) 2021-09-03 06:32:00 [facility] Cookr [facility] MAGNESIUM 2021-09-03 06:32:00 [facility] PHOSPHORUS 2021-09-03 06:32:00 Ali [facility] CBC W/PLT COUNT & AUTO 2021-09-03 06:32:00 [facility] (CELLAVISION MANUAL DIFF) 2021-09-03 06:32:00 Ann Marie Ramires [facility] CBC W/PLT COUNT & AUTO 2021-09-02 06:23:00 Ann Marie Ramires [facility] BASIC METABOLIC PANEL (7) 2021-09-02 06:23:00 Ann Marie Ramires [facility] MAGNESIUM 2021-09-02 06:23:00 Ann Marie Ramires [facility] PHOSPHORUS 2021-09-02 06:23:00 AliAnn Marie [facility] CBC W/PLT COUNT & AUTO 2021-09-02 06:23:00 [facility] (CELLAVISION MANUAL DIFF) 2021-09-02 06:23:00 [facility] WOUND CULTURE + GRAM STAIN 2021-09-01 08:30:00 Anamaria Lozano [facility] CBC W/PLT COUNT & AUTO 2021-09-01 06:45:00 [facility] BASIC METABOLIC PANEL (7) 2021-09-01 06:45:00 Ann Marie Ramires [facility] MAGNESIUM 2021-09-01 06:45:00 Ann Marie Ramires [facility] PHOSPHORUS 2021-09-01 06:45:00 [facility] CBC W/PLT COUNT & AUTO 2021-09-01 06:45:00 Ann Marie Ramires [facility] (CELLAVISION MANUAL DIFF) 2021-09-01 06:45:00 Ike [facility] Cookr [facility] PREPARE LEUKO-REDUCED AND 2021-08-31 23:54:00 Tatum Mcfarland CH I [facility] RBC [facility] PREPARE LEUKO-REDUCED AND 2021-08-31 23:54:00 Randal I [facility] IRRADIATED PLATELETS [facility] ter VANCOMYCIN LEVEL, TROUGH 2021-08-31 17:54:00 Sang Jean [facility] BASIC METABOLIC PANEL (7) 2021-08-31 14:25:00 Shanthi Banks CH [facility] MAGNESIUM 2021-08-31 14:25:00 Ann Marie Ramires [facility] PHOSPHORUS 2021-08-31 14:25:00 Ann Marie Ramires [facility] CT ABDOMEN/PELVIS WITH IV 2021-08-31 07:19:[address] [facility] CBC W/PLT COUNT & AUTO 2021-08-31 03:20:00 IkeAnn Marie [facility] BASIC METABOLIC PANEL (7) 2021-08-31 03:20:00 Ike Ann Marie Bateshir [facility] MAGNESIUM 2021-08-31 03:20:00 [facility]ke [facility] BatesRay [facility] PHOSPHORUS 2021-08-31 03:20:00 Ike Ann Marie Bateshir [facility] CBC W/PLT COUNT & AUTO 2021-08-31 03:20:00 IkeAnn Mariehir [facility] (CELLAVISION MANUAL DIFF) 2021-08-31 03:20:00 IkeAnn Marie [facility] TRANSFUSE LEUKO-REDUCED 2021-08-30 15:30:00 Tatum Mcfarland [facility] AND IRRADIATED RED BLOOD [facility] CELLS BASIC METABOLIC PANEL (7) 2021-08-30 14:28:00 Ike Ann Marie Ray [facility] MAGNESIUM 2021-08-30 14:28:00 Ike Ann Marie Bateshir [facility] GI PATHOGEN PROFILE BY PCR 2021-08-30 14:09:00 Ike Ann Marie Bateshir C [facility] TRANSFUSE LEUKO-REDUCED 2021-08-30 08:36:00 Randal [facility] AND IRRADIATED PLATELETS [facility] CBC W/PLT COUNT & AUTO 2021-08-30 05:31:[address] [facility] DIFFERENTIAL [facility] BASIC METABOLIC PANEL (7) 2021-08-30 05:31:00 ROXANNE Tee I [facility] MAGNESIUM 2021-08-30 05:31:00 Randal [facility] CBC W/PLT COUNT & AUTO 2021-08-30 05:31:00 CORNELIA Tee [facility] DIFFERENTIAL [facility] (CELLAVISION MANUAL DIFF) 2021-08-30 05:31:00 ROXANNE Tee I [facility] URINE CULTURE 2021-08-30 05:23:00 Randal [facility] URINALYSIS W/ REFLEX URINE 2021-08-30 05:23:00 Karon Tee [facility] TRANSFUSE LEUKO-REDUCED 2021-08-30 01:25:00 Randal [facility] AND IRRADIATED RED BLOOD [facility] CELLS BLOOD CULTURE 2021-08-29 21:52:00 Randal [facility] BLOOD CULTURE 2021-08-29 21:48:00 Randal [facility] LACTIC ACID, VENOUS 2021-08-29 21:48:00 Randal [facility] CBC W/PLT COUNT & AUTO 2021-08-29 21:48:[address] [facility] COMPREHENSIVE METABOLIC 2021-08-29 21:48:00 Randal [facility] PT/APTT 2021-08-29 21:48:00 Randal [facility] PERIPHERAL BLOOD SMEAR - 2021-08-29 21:48:00 Randal [facility] PATH REVIEW [facility] MAGNESIUM 2021-08-29 21:48:00 Randal [facility] ABORH, MANUAL 2021-08-29 21:48:00 Randal [facility] CBC W/PLT COUNT & AUTO 2021-08-29 21:48:00 CORNELIA Tee juanita DIFFERENTIAL [facility] (CELLAVISION MANUAL DIFF) 2021-08-29 21:48:00 ROXANNE Tee I [facility] SARS-COV2/RT-PCR ([facility] & 2021-08-22 11:50:00 Jadyn Fernandez CH I [facility] REF LABS) [facility] POCT-GLUCOSE METER 2021-08-22 11:00:00 Jadyn Fernandez [facility] POCT-GLUCOSE METER 2021-08-22 07:20:00 Jadyn Fernandez [facility] PH, URINE 2021-08-22 05:43:00 Sekou Pressley [facility] BASIC METABOLIC PANEL (7) 2021-08-22 04:32:00 Jadyn Fernandez [facility] METHOTREXATE LEVEL 2021-08-22 04:32:00 Sekou Pressley [facility] CBC W/PLT COUNT & AUTO 2021-08-22 04:32:00 Sekou Pressley [facility] CBC W/PLT COUNT & AUTO 2021-08-22 04:32:00 Sekou Pressley [facility] (CELLAVISION MANUAL DIFF) 2021-08-22 04:32:00 Wendie Sekouelza Pérez [facility] POCT-GLUCOSE METER 2021-08-21 20:51:00 Jadyn Fernandez [facility] POCT-GLUCOSE METER 2021-08-21 16:42:00 Jadyn Fernandez [facility] POCT-GLUCOSE METER 2021-08-21 10:44:00 Jadyn Fernandez [facility] PH, URINE 2021-08-21 08:57:00 Wendie [facility] POCT-GLUCOSE METER 2021-08-21 07:19:00 Jadyn Fernandez [facility] PHOSPHORUS 2021-08-21 04:31:00 Wendie Sekouelza Raymond [facility] URIC ACID 2021-08-21 04:31:00 Wendie Sekou Segundo [facility] COMPREHENSIVE METABOLIC 2021-08-21 04:31:00 Sekou Pressley [facility] MAGNESIUM 2021-08-21 04:31:00 Sekou Pressley [facility] METHOTREXATE LEVEL 2021-08-21 04:31:00 Sekou Pressley [facility] CBC W/PLT COUNT & AUTO 2021-08-21 04:31:00 Sekou Pressley [facility] DIFFERENTIAL [facility] CBC W/PLT COUNT & AUTO 2021-08-21 04:31:00 Sekou Pressley [facility] (CELLAVISION MANUAL DIFF) 2021-08-21 04:31:00 Wendie Sekou [facility] POCT-GLUCOSE METER 2021-08-20 21:13:00 Pedro [facility] POCT-GLUCOSE METER 2021-08-20 16:52:00 [facility] PO[facility]SE METER 2021-08-20 11:58:00 [facility] POCT-GLUCOSE METER 2021-08-20 07:21:00 [facility] 2021-08-20 04:39:00 Wendie Sekou [facility] URIC ACID 2021-08-20 04:39:00 Wendie Sekou Pérezn [facility] COMPREHENSIVE METABOLIC 2021-08-20 04:39:00 Sekou Pressley [facility] MAGNESIUM 2021-08-20 04:39:00 Sekou Pressley [facility] METHOTREXATE LEVEL 2021-08-20 04:39:00 Sekou Pressley [facility] CBC W/PLT COUNT & AUTO 2021-08-20 04:39:00 Sekou Press[facility] CBC W/PLT COUNT & AUTO 2021-08-20 04:39:00 Sekou Pressley [facility] POCT-GLUCOSE METER 2021-08-19 21:10:00 Dannyjaredmichelle [facility] POCT-GLUCOSE METER 2021-08-19 16:16:00 Mohit [facility] POCT-GLUCOSE METER 2021-08-19 11:45:00 [facility]jaredmichelle [facility] POCT-GLUCOSE METER 2021-08-19 07:41:00 Pedro [facility] PH, URINE 2021-08-19 05:30:00 Wendie Sekouelza Raymond [facility] PHOSPHORUS 2021-08-19 04:44:00 Wendie [facility] URIC ACID 2021-08-19 04:44:00 [facility] COMPREHENSIVE METABOLIC 2021-08-19 04:44:00 Sekou Pressley [facility] MAGNESIUM 2021-08-19 04:44:00 Wendie [facility] Segundo [facility] METHOTREXATE LEVEL 2021-08-19 04:44:00 Sekou Pressley [facility] CBC W/PLT COUNT & AUTO 2021-08-19 04:44:00 Sekou Pressley [facility] CBC W/PLT COUNT & AUTO 2021-08-19 04:44:00 Sekou Pressley [facility] POCT-GLUCOSE METER 2021-08-18 21:15:00 [facility] POCT-GLUCOSE METER 2021-08-18 16:53:00 [facility]it [facility] CHROMOSOMES CANCER STUDY 2021-08-18 16:18:00 Alivia Solorzano i [facility] FLOW CYTOMETRY REQUISITION 2021-08-18 15:50:00 Alivia Solorzano [facility] FLOW CYTOMETRY 2021-08-18 15:50:00 Alivia Solorzanolouise [facility] CT 2021-08-18 15:45:00 Jadyn Fernandez [facility] s BIOPSY/ASPIRATION/INJECTIO [facility] N BONE MARROW PROCESS. 2021-08-18 15:45:00 Cisco Solorzanocinthya Pham I [facility] BONE MARROW EXAM 2021-08-18 15:45:00 Cisco Solorzanocinthya Pham [facility] POCT-GLUCOSE METER 2021-08-18 11:31:00 Jadyn Fernandez [facility] POCT-GLUCOSE METER 2021-08-18 07:28:00 Jadyn Fernandez [facility] CBC W/PLT COUNT & AUTO 2021-08-18 04:47:00 Jeanine Aliviacinthya Pham [facility] COMPREHENSIVE METABOLIC 2021-08-18 04:47:00 Sekou Pressley [facility] URIC ACID 2021-08-18 04:47:00 JeanineAlivia [facility] PHOSPHORUS 2021-08-18 04:47:00 JeanineAlivia [facility] MAGNESIUM 2021-08-18 04:47:00 [facility] CBC W/PLT COUNT & AUTO 2021-08-18 04:47:00 JeanineAlivia [facility] (CELLAVISION MANUAL DIFF) 2021-08-18 04:47:00 JonyAlivia mae [facility] PH, URINE 2021-08-18 03:52:00 Sekou Pressley [facility] PH, URINE 2021-08-17 22:59:00 Wendie Sekou Segundo [facility] POCT-GLUCOSE METER 2021-08-17 21:07:00 Jadyn Fernandez [facility] PH, URINE 2021-08-17 19:00:00 WendieSekou [facility] URIC ACID 2021-08-17 18:04:00 [facility] COMPREHENSIVE METABOLIC 2021-08-17 18:04:00 [facility] 2021-08-17 18:04:00 [facility] MAGNESIUM 2021-08-17 18:04:00 [facility] POCT-GLUCOSE METER 2021-08-17 16:45:00 Mohit Taspencer [facility] URIC ACID 2021-08-17 13:06:00 [facility] COMPREHENSIVE METABOLIC 2021-08-17 13:06:00 Cisco Solorzanocinthya [facility] PHOSPHORUS 2021-08-17 13:06:00 TamAlivia [facility] MAGNESIUM 2021-08-17 13:06:00 Cisco Solorzanoica [facility] POCT-GLUCOSE METER 2021-08-17 12:00:00 Jadyn Fernandez [facility] POCT-GLUCOSE METER 2021-08-17 08:44:00 Jadyn Fernandez [facility] URIC ACID 2021-08-17 04:26:00 [facility] PHOSPHORUS 2021-08-17 04:26:00 Cisco [facility]ocinthya [facility] W/PLT COUNT & AUTO 2021-08-17 04:26:00 Cisco [facility]ica [facility] COMPREHENSIVE METABOLIC 2021-08-17 04:26:00 Sekou Pressley [facility] CBC W/PLT COUNT & AUTO 2021-08-17 04:26:00 Cisco Solorzanoica [facility] (MANUAL DIFFERENTIAL) 2021-08-17 04:26:00 Jadyn Fernandez [facility] POCT-GLUCOSE METER 2021-08-16 21:55:00 Mohit [facility] POCT-GLUCOSE METER 2021-08-16 17:13:00 Mohit [facility] XR ABDOMEN / KUB 1 VIEW 2021-08-16 17:01:00 Mohit [facility] POCT-GLUCOSE METER 2021-08-16 12:18:00 [facility] HEPATITIS B PANEL 2021-08-16 10:00:[facility]TIBODY 2021-08-16 10:00:00 [facility] HC LAB HIV-1 AG W/HIV-1&2 2021-08-16 09:56:00 Alivia Solorzano [facility] CBC W/PLT COUNT & AUTO 2021-08-16 09:56:00 [facility] W/PLT COUNT & AUTO 2021-08-16 09:56:00 Alivia Solorzano [facility] (CELLAVISION MANUAL DIFF) 2021-08-16 09:56:00 Alivia Solorzano [facility] POCT-GLUCOSE METER 2021-08-16 06:28:00 Mirza Fernandezkatyaspencer [facility] URIC ACID 2021-08-16 03:23:00 Alivia Solorzano [facility] PHOSPHORUS 2021-08-16 03:23:00 [facility] BASIC METABOLIC PANEL (7) 2021-08-16 03:23:00 Alivia Solorzano [facility] LACTATE DEHYDROGENASE 2021-08-16 03:23:00 Dannyohiohealthmichelle Taspencer [facility] HEPATIC FUNCTION PANEL 2021-08-16 03:23:00 Dannykasie Mirzakatyaspencer [facility] POCT-GLUCOSE METER 2021-08-16 01:12:00 Ta Fernandezspencer [facility] XR CHEST 1 VIEW PORTABLE / 2021-08-15 19:15:00 Dannykasie Jadyn [facility] BEDSIDE [facility] POCT-GLUCOSE METER 2021-08-15 17:14:00 DannyjaredTaspencer [facility] SARS-COV2/RT-PCR ([facility] & 2021-08-15 16:14:00 [facility] REF [facility] FERRITIN 2021-08-15 16:14:00 Alivia Solorzano [facility] IRON, TIBC, % SAT. 2021-08-15 16:14:00 [facility] URIC ACID 2021-08-15 13:49:00 Alivia Solorzano [facility] PHOSPHORUS 2021-08-15 13:49:00 Alivia Solorzano [facility] BASIC METABOLIC PANEL (7) 2021-08-15 13:49:00 Alivia Solorzano [facility] [place] ESOPH SWALLOW FUNCT 2021-08-15 12:49:00 Noman Rodriguez CHI WITH CINE VIDEO [facility] POCT-GLUCOSE METER 2021-08-15 11:43:00 Mohit Mirzakatyaspencer [facility] XR CHEST 1 VIEW PORTABLE / 2021-08-15 11:22:00 Jadyn Fernandez [facility] BEDSIDE [facility] POCT-GLUCOSE METER 2021-08-15 05:51:00 Noman Rodriguez [facility] POCT-GLUCOSE METER 2021-08-15 00:29:00 Noman Rodriguez [facility] POCT-GLUCOSE METER 2021-08-14 18:10:00 Michael, [facility] POCT-GLUCOSE METER 2021-08-14 11:37:00 Michael [facility] POCT-GLUCOSE METER 2021-08-14 07:03:00 Michael [facility] CBC W/PLT COUNT & AUTO 2021-08-14 05:13:00 Nathaly Jameson [facility] BASIC METABOLIC PANEL (7) 2021-08-14 05:13:00 Nathaly Jameson [facility] MAGNESIUM 2021-08-14 05:13:00 Nathaly Jameson [facility] PHOSPHORUS 2021-08-14 05:13:00 Trino Nathaly [facility] CBC W/PLT COUNT & AUTO 2021-08-14 05:13:00 Nathaly Jameson [facility] [facility] POCT-GLUCOSE METER 2021-08-14 00:03:00 Michael [facility] POCT-GLUCOSE METER 2021-08-13 18:13:00 Michael [facility] POCT-GLUCOSE METER 2021-08-13 12:06:00 Michael [facility] POCT-GLUCOSE METER 2021-08-13 06:40:00 Michael [facility] CBC W/PLT COUNT & AUTO 2021-08-13 04:24:00 Nathaly Jameson [facility] BASIC METABOLIC PANEL (7) 2021-08-13 04:24:00 Nathaly Jameson [facility] MAGNESIUM 2021-08-13 04:24:00 Nathaly Jameson [facility] PHOSPHORUS 2021-08-13 04:24:00 Nathaly Jameson [facility] CBC W/PLT COUNT & AUTO 2021-08-13 04:24:00 Nathaly Jameson [facility] POCT-GLUCOSE METER 2021-08-13 00:45:[address] [facility] [address] [facility] 2021-08-12 20:33:[facility] 2021-08-12 17:59:00 [facility] KUB 1 [facility]IEW 2021-08-12 [facility] 2021-08-12 [facility] 2021-08-12 12:32:00 [facility] KUB 1 VIEW 2021-08-12 10:52:00 [facility] & AUTO 2021-08-12 05:38:00 Nathaly Jameson [facility] BASIC METABOLIC PANEL (7) 2021-08-12 05:38:00 Nathaly Jameson [facility] MAGNESIUM 2021-08-12 05:38:00 Nathaly Jameson [facility] PHOSPHORUS 2021-08-12 05:38:00 Nathaly Jameson [facility] CBC W/PLT COUNT & AUTO 2021-08-12 05:38:00 Nathaly Jameson [facility] POCT-GLUCOSE METER 2021-08-12 05:37:00 Deon [facility] XR ABDOMEN / KUB 1 VIEW 2021-08-12 04:25:00 Ismael Grajeda [facility] POCT-GLUCOSE METER 2021-08-11 23:13:00 [facility] POCT-GLUCOSE METER 2021-08-11 17:52:00 Deon [facility] POCT-GLUCOSE METER 2021-08-11 12:48:[address] [facility] CT BRAIN WITHOUT IV 2021-08-11 12:25:00 Nathaly Jameson [facility] CONTRAST [facility] TISSUE EXAM 2021-08-11 09:34:00 Ike Renner [facility] BIOPSY, BRAIN, 2021-08-11 07:35:00 Ike Renner [facility] POCT-GLUCOSE METER 2021-08-11 06:01:00 Megan Chavarria [facility] CT ABDOMEN WITH & WITHOUT 2021-08-11 02:25:00 Chucky castaneda [facility] IV CONTRAST [facility] POCT-P2Y12 PLATELET 2021-08-11 02:04:00 Megan Chavarria [facility] AGGREGATION [facility] BASIC METABOLIC PANEL (7) 2021-08-11 02:01:00 Jadyn Fernandez [facility] CBC W/PLT COUNT & AUTO 2021-08-11 02:01:00 Jadyn Fernandez [facility] DIFFERENTIAL [facility] CBC W/PLT COUNT & AUTO 2021-08-11 02:01:00 Mirza Fernandezwittspencer [facility] DIFFERENTIAL [facility] PLATELET AGGREGATION: 2021-08-11 02:00:00 Megan Chavarria [facility] FUNCTION SCREEN [facility] POCT-GLUCOSE METER 2021-08-10 23:19:00 Mario Chavarriacritical access hospitaldena [facility] POCT-GLUCOSE METER 2021-08-10 17:42:00 [facility] TYPE AND SCREEN, AUTOMATED 2021-08-10 15:33:00 Dorothy Carrasco [facility] POCT-GLUCOSE METER 2021-08-10 13:19:00 Deon [facility] BASIC METABOLIC PANEL (7) 2021-08-10 08:18:[address] [facility] ANGIOTENSIN CONVERTING 2021-08-10 08:18:00 Chucky Echeverria [facility] ENZYME (TAWNY) [facility] POCT-GLUCOSE METER 2021-08-10 07:36:00 [facility] 2021-08-10 06:38:00 [facility]ABOLIC PANEL (7) 2021-08-10 04:34:00 Jadyn Fernandez [facility] CBC W/PLT COUNT & AUTO 2021-08-10 04:34:[address] [facility] CBC W/PLT COUNT & AUTO 2021-08-10 04:34:[address] [facility] [address] [facility] POCT-GLUCOSE METER 2021-08-10 00:46:00 [facility] POCT-[facility]UCOSE METER 2021-08-09 17:51:00 [facility]BDOMEN / KUB 1 VIEW 2021-08-09 08:45:00 [facility] BASIC METABOLIC PANEL (7) 2021-08-09 04:02:00 Jadyn Fernandez [facility] CBC W/PLT COUNT & AUTO 2021-08-09 04:02:[address] [facility] [facility] CBC W/PLT COUNT & AUTO 2021-08-09 04:02:[address] ECG 12-LEAD 2021-08-08 19:21:22 Mohit [facility] SARS-COV2/RT-PCR ([facility] & 2021-08-08 19:13:00 Nathaly Jameson [facility] REF LABS) [facility] PT/APTT 2021-08-08 19:10:00 Jadyn Fernandez [facility] ABORH, MANUAL 2021-08-08 19:10:00 Jadyn Fernandez [facility] s [facility] MR BRAIN WITH & WITHOUT IV 2021-08-08 18:29:00 Jadyn Fernandez [facility] CONTRAST [facility] CT CHEST WITH IV CONTRAST 2021-08-08 18:27:00 Chucky castaneda, [facility] CT ABDOMEN/PELVIS WITH IV 2021-08-08 18:27:00 Chucky castaneda, [facility] CONTRAST [facility] XR CHEST 1 VIEW PORTABLE / 2021-08-08 16:50:00 Jadyn Fernandez [facility] BEDSIDE [facility] RPR 2021-08-08 09:00:00 [facility] LACTATE DEHYDROGENASE 2021-08-08 08:48:00 Jadyn Fernandez [facility]) [facility] LACTIC ACID, VENOUS 2021-08-08 08:46:00 Jadyn Fernandez [facility] PARANEOPLASTIC PANEL - 2021-08-08 08:46:00 Jadyn Fernandez [facility] BLOOD [facility] BASIC METABOLIC PANEL (7) 2021-08-08 04:21:00 Jadyn Fernandez [facility] CBC W/PLT COUNT & AUTO 2021-08-08 04:21:00 Jadyn Fernandez [facility] DIFFERENTIAL [facility] CBC W/PLT COUNT & AUTO 2021-08-08 04:21:00 Jadyn Fernandez [facility] DIFFERENTIAL [facility] GLUCOSE, CSF 2021-08-07 16:34:00 Jadyn Fernandez [facility] CSF CELL COUNT 2021-08-07 16:34:00 Jadyn Fernandez [facility] s W/DIFFERENTIAL [facility] PROTEIN, CSF 2021-08-07 16:34:00 Jadyn Fernandez [facility] MYCOBACTERIUM TB PCR 2021-08-07 16:34:00 Jadyn Fernandez [facility] NON-RESPIRATORY [facility] VDRL, CSF 2021-08-07 16:34:00 [facility] AQUAPORIN-4 2021-08-07 16:34:00 Mohit Jadyn [facility] (AQP4)(NMO-IGG) ANTIBODY [facility] WITH REFLEX TO TITER, CF OLIGOCLONAL BANDS 2021-08-07 16:34:00 [facility] IGG INDEX (CSF + BLOOD) 2021-08-07 16:34:00 Mohit [facility] ANGIOTENSIN CONVERTING 2021-08-07 16:34:00 [facility] ENZYME, CSF [facility] FLOW CYTOMETRY REQUISITION 2021-08-07 16:34:00 [facility] FLOW CYTOMETRY 2021-08-07 16:34:00 Jadyn Fernandez [facility] CSF CULTURE + GRAM STAIN 2021-08-07 16:32:00 Jadyn Fernandez I [facility] FUNGUS CULTURE + SMEAR 2021-08-07 16:32:00 [facility] MENINGITIS/ENCEPHALITIS 2021-08-07 16:32:00 Jadyn Fernandez [facility] PANEL [facility] MISCELLANEOUS LAB ORDER 2021-08-07 16:32:00 Tabtamaraizmundo [facility] er SIL INK PREP 2021-08-07 16:32:00 [facility] CYTOLOGY 2021-08-07 16:31:00 Mariza Rodríguez [facility] PARANEOPLASTIC PANEL - 2021-08-07 04:49:00 [facility] BLOOD [facility] MISCELLANEOUS LAB ORDER 2021-08-07 04:47:00 [facility] MISCELLANEOUS LAB ORDER 2021-08-07 04:47:00 [facility] ANGIOTENSIN CONVERTING 2021-08-07 04:47:00 Jadyn Fernandez [facility] ENZYME (TAWNY) [facility] BASIC METABOLIC PANEL (7) 2021-08-07 04:47:00 Jadyn Fernandez [facility] CBC W/PLT COUNT & AUTO 2021-08-07 04:47:00 Jadyn Fernandez [facility] DIFFERENTIAL [facility] PT/APTT 2021-08-07 04:47:00 Jadyn Fernandez [facility] s [facility] CBC W/PLT COUNT & AUTO 2021-08-07 04:47:00 Jadyn Fernandez [facility] DIFFERENTIAL [facility] MR CERVICAL SPINE WITH IV 2021-08-05 11:02:[address] [facility] MR BRAIN WITH IV CONTRAST 2021-08-05 11:02:00 [facility] THORACIC SPINE WITH & 2021-08-05 11:02:00 Chandler Landry [facility] WITHOUT IV CONTRAST [facility] er MR CERVICAL SPINE WITHOUT 2021-08-04 17:00:00 Chandler [facility]ry [facility] IV CONTRAST [facility] MR BRAIN WITHOUT IV 2021-08-04 16:50:00 [facility] VITAMIN B12 2021-08-04 05:48:00 Allie Aguilera [facility] VITAMIN D, 25-HYDROXY 2021-08-04 05:48:00 Hemal Wells [facility] POCT-GLUCOSE METER 2021-08-04 02:25:00 Chandler Landry [facility] COMPREHENSIVE METABOLIC 2021-08-04 02:19:[address] [facility] HIGH SENSITIVITY TROPONIN 2021-08-04 02:19:00 Chandler Landry I [facility] MAGNESIUM 2021-08-04 02:19:00 [facility]amer[facility] hospitalChandler [facility] CBC W/PLT COUNT & AUTO 2021-08-04 02:18:00 [facility]amercy [facility] hospitalChandler [facility] PT/APTT 2021-08-04 02:18:00 [facility] PROT[facility] TIME/INR 2021-08-04 02:18:00 [facility] CBC W/PLT COUNT & AUTO 2021-08-04 02:18:00 [facility] Hospital[facility] CTA BRAIN 2021-08-04 02:17:00 [facility] CTA CAROTID 2021-08-04 02:17:[address] [facility] [address] BRAIN CEREBRAL 2021-08-04 02:17:00 [facility] Hospital[facility]ler [facility] PERFUSION ANALYSIS [facility] SARS-COV2/RT-PCR ([facility] & 2021-08-04 02:15:00 [facility] REF LABS) [facility] CT BRAIN/STROKE TEST 2021-08-04 01:50:00 [facility]amercy [facility] hospitalChandler [facility] EKG-SCANNED 2021-08-04 00:00:00 [facility] Scanning [facility] MRI BRAIN W WO CONTRAST 2021-02-15 20:52:26 Hilary Barahona [facility] POC GLUCOSE 2021-02-15 17:16:00 [facility] POC GLUCOSE 2021-02-15 13:31:00 [facility] POC GLUCOSE 2021-02-15 03:52:00 [facility] POC GLUCOSE 2021-02-15 01:49:00 [facility] POC GLUCOSE 2021-02-14 23:43:00 [facility] POC GLUCOSE 2021-02-14 17:49:00 [facility] POC GLUCOSE 2021-02-14 13:39:00 [facility] POC GLUCOSE 2021-02-14 02:17:00 [facility] POC GLUCOSE 2021-02-13 23:22:00 [facility] CYTOLOGY 2021-02-13 21:28:00 [facility] (NON-GYNECOLOGICAL) REQUEST IR LUMBAR PUNCTURE 2021-02-13 17:29:21 [facility] CSF CULTURE 2021-02-13 17:28:00 [facility] spital GRAM STAIN 2021-02-13 17:28:00 [facility] spital CSF CELL COUNT WITH 2021-02-13 17:28:00 [facility] DIFFERENTIAL PROTEIN, CSF 2021-02-13 17:28:00 [facility] spital GLUCOSE LEVEL, CSF 2021-02-13 17:28:00 [facility] IGG SYNTHESIS RATE STUDY 2021-02-13 17:28:00 [facility] VDRL, CSF 2021-02-13 17:28:00 [facility] spital OLIGOCLONAL BANDING, CSF 2021-02-13 17:28:00 [facility] FLOW CYTOMETRY EVALUATION 2021-02-13 17:28:00 [facility] POC GLUCOSE 2021-02-13 13:25:[address] [facility] CT HEAD W CONTRAST 2021-02-13 11:18:00 [facility] PROTHROMBIN TIME WITH INR 2021-02-13 10:14:00 [facility] HC COMPLETE BLD COUNT 2021-02-13 10:14:00 [facility] W/AUTO DIFF COMPREHENSIVE METABOLIC 2021-02-13 10:14:00 [facility] PANEL ESTIMATED GFR 2021-02-13 10:14:00 [facility] POC GLUCOSE 2021-02-13 02:45:00 [facility] POC GLUCOSE 2021-02-12 17:59:00 [facility] POC GLUCOSE 2021-02-12 15:00:00 [facility] MRI ABDOMEN W WO CONTRAST 2021-02-12 14:57:57 [facility] POC GLUCOSE 2021-02-12 02:55:00 [facility] GANGLIOSIDE 2021-02-11 19:27:00 Hilary Barahona [facility] spital (GM1/GD1B/GQ1B) ABS, IGG/IGM CT CHEST W CONTRAST 2021-02-11 18:09:12 Hilary Barahona [facility] ABDOMEN W CONTRAST PELVIS W CONTRAST TRAUMA ALPHA FETOPROTEIN 2021-02-11 11:38:00 Prath, [facility] LUPUS ANTICOAGULANT PANEL 2021-02-11 11:38:00 Prath, [facility] BETA-2 GLYCOPROTEIN 1 2021-02-11 11:38:00 Prath, [facility] ANTIBODY, IGG AND IGM CARDIOLIPIN ANTIBODIES 2021-02-11 11:37:00 Prath, [facility] CARCINOEMBRYONIC ANTIGEN 2021-02-11 11:37:00 Hilary Barahona [facility] (CEA) SERUM ELECTROPHORESIS 2021-02-11 11:37:00 [facility] FLOW CYTOMETRY EVALUATION 2021-02-11 01:10:00 Prath, [facility] LDH 2021-02-11 01:10:00 Prath, [facility] HAPTOGLOBIN 2021-02-11 01:10:00 Prath, [facility] URIC ACID LEVEL 2021-02-11 01:10:00 Prath, [facility] D-DIMER 2021-02-11 01:10:00 Prath, [facility] MARTA HALL VIRUS (EBV) 2021-02-11 01:10:00 Prath, [facility] BY PCR CYTOMEGALOVIRUS BY PCR 2021-02-11 01:10:00 Junaid Canales [facility] MRI BRAIN W WO CONTRAST 2021-02-10 21:13:25 Lulu Hernandez [facility] VITAMIN B1 LEVEL, WHOLE 2021-02-10 11:48:00 Hilary Barahona [facility] BLOOD LIPID PANEL 2021-02-10 11:48:00 [facility] RAPID HIV 1 & 2 2021-02-10 11:48:00 Hilary Barahona [facility] spital TREPONEMA PALLIDUM 2021-02-10 11:48:00 [facility] ANTIBODIES (PARTICLE AGGLUTINATION TP-PA) ELINA 2021-02-10 11:48:00 [facility] System[facility] spital SEDIMENTATION RATE 2021-02-10 11:48:00 [facility] C-REACTIVE PROTEIN 2021-02-10 11:48:00 [facility] FUNCTIONAL PROTEIN S 2021-02-10 11:48:00 [facility] FUNCTIONAL PROTEIN C 2021-02-10 11:48:00 [facility] ANTITHROMBIN III LEVEL 2021-02-10 11:48:00 [facility] FACTOR V LEIDEN BY PCR 2021-02-10 11:48:00 [facility] LUPUS ANTICOAGULANT PANEL 2021-02-10 11:48:00 [facility] CARDIOLIPIN ANTIBODIES 2021-02-10 11:48:00 [facility] THYROID STIMULATING 2021-02-10 11:48:00 [facility] Hilary [facility] HORMONE VITAMIN B12 LEVEL 2021-02-10 11:48:00 [facility] RPR 2021-02-10 11:48:00 Hilary Barahona [facility] spital CT LUMBAR SPINE WO 2021-02-10 02:23:15 [facility] CONTRAST CT CERVICAL SPINE WO 2021-02-10 02:20:03 [facility] CONTRAST COVID-19 QUALITATIVE 2021-02-09 20:38:00 [facility] ANGIOGRAM NECK W WO 2021-02-09 19:13:17 [facility] ANGIOGRAM HEAD W WO 2021-02-09 19:12:38 [facility] ECG 12-LEAD 2021-02-09 19:01:05 [facility] STROKE BRAIN WO 2021-02-09 18:50:20 [facility] URINE CULTURE 2021-02-09 18:28:00 [facility] HospitalLjceci [facility] URINALYSIS SCREEN AND 2021-02-09 18:28:00 Lulu Hernandez [facility] MICROSCOPY, WITH REFLEX TO CULTURE HC COMPLETE BLD COUNT 2021-02-09 18:26:00 Lulu Hernandez [facility] W/AUTO DIFF PARTIAL THROMBOPLASTIN 2021-02-09 18:26:00 [facility] hospitalLulu [facility] TIME (PTT) COMPREHENSIVE METABOLIC 2021-02-09 18:26:[address] [facility] PANEL ESTIMATED GFR 2021-02-09 18:26:00 [facility] PROTHROMBIN TIME WITH INR 2021-02-09 18:26:00 [facility] ECG ED PRELIMINARY 2021-02-09 18:10:34 Lulu Hernandez [facility] INTERPRETATION CT CHEST W CONTRAST 2021-01-26 19:23:50 [facility] ABDOMEN W CONTRAST PELVIS W CONTRAST PROSTATE SPECIFIC ANTIGEN 2021-01-26 17:19:00 [facility] CANCER ANTIGEN 19-9 2021-01-26 17:19:00 [facility] MRI BRAIN W WO CONTRAST 2021-01-26 03:55:[address] [facility] MRA NECK WO CONTRAST 2021-01-25 19:17:40 [facility] MRA HEAD WO CONTRAST 2021-01-25 19:14:58 [facility] MRI BRAIN WO CONTRAST 2021-01-25 18:59:47 [facility] PV TRANSCRANIAL DOPPLER 2021-01-25 16:56:[address] [facility] INTRACRANIAL ARTERIES COMPLETE COVID-19 ANTI-SPIKE IGG 2021-01-25 10:14:00 [facility] ANTIBODY TITER Solitario HC COMPLETE BLD COUNT 2021-01-25 10:14:00 [facility] W/AUTO DIFF BASIC METABOLIC PANEL 2021-01-25 10:14:00 [facility] COVID-19 SEROLOGY PATIENT 2021-01-25 10:14:[address] [facility] SURVEILLANCE Solitario ESTIMATED GFR 2021-01-25 10:14:00 [facility] US CAROTID DUPLEX 2021-01-24 15:57:41 [facility] BILATERAL LIPID PANEL 2021-01-24 09:51:00 [facility] LIPID PANEL 2021-01-24 04:13:00 [facility] HEMOGLOBIN A1C 2021-01-24 04:13:00 [facility] COVID-19 QUALITATIVE 2021-01-23 23:46:00 Lulu Hernandez [facility] RT-PCR CT ANGIOGRAM NECK W WO 2021-01-23 22:24:38 Lulu Hernandez [facility] CONTRAST CT ANGIOGRAM HEAD W WO 2021-01-23 22:23:51 Lulu Hernandez [facility] CONTRAST CT STROKE BRAIN WO 2021-01-23 22:14:31 [facility] CONTRAST HC COMPLETE BLD COUNT 2021-01-23 21:30:00 Lulu Hernandez [facility] W/AUTO DIFF PARTIAL THROMBOPLASTIN 2021-01-23 21:30:00 Lulu Hernandez [facility] TIME (PTT) PROTHROMBIN TIME WITH INR 2021-01-23 21:30:00 Lulu Hernandez [facility] COMPREHENSIVE METABOLIC 2021-01-23 21:30:00 Lulu Hernandez [facility] PANEL ESTIMATED GFR 2021-01-23 21:30:00 Lulu Hernandez [facility] POC GLUCOSE 2021-01-23 21:30:00 Lulu Hernandez [facility] ECG 12-LEAD 2021-01-23 21:23:10 Lulu Hernandez [facility] ECG ED PRELIMINARY 2021-01-23 21:22:10 Lulu Hernandez [facility] INTERPRETATION CTA BRAIN 2021-01-08 15:07:00 Taylor Hare [facility] ED ECG INTERPRETATION 2021-01-08 14:26:03 Fernandez Cantrell [facility] CT BRAIN/STROKE TEST 2021-01-08 13:09:00 Taylor Hare [facility] BASIC METABOLIC PANEL (7) 2021-01-08 12:44:00 Jelly Hare [facility] MAGNESIUM 2021-01-08 12:44:00 Fernandez Cantrell [facility] TROPONIN I 2021-01-08 12:44:00 Taylor Hare [facility] CBC W/PLT COUNT & AUTO 2021-01-08 12:44:00 Fernandez Cantrell [facility] PT/APTT 2021-01-08 12:44:00 Fernandez Cantrell [facility] B-TYPE NATRIURETIC FACTOR 2021-01-08 12:44:00 Jelly Hare [facility] (BNP) [facility] CBC W/PLT COUNT & AUTO 2021-01-08 12:44:00 Taylor Hare [facility] POCT-GLUCOSE METER 2021-01-08 12:42:00 Marcelino Ocampo [facility] XR CHEST 1 VIEW PORTABLE / 2021-01-08 12:33:00 Reji Hare [facility] ECG 12-LEAD 2021-01-08 12:17:38 Unknown, [facility] ECG 12-LEAD 2021-01-08 12:17:12 Unknown, [facility] CT STROKE BRAIN WO 2021-01-05 16:09:38 Wes Steret [facility] CONTRAST TTE COMPLETE, WO CONTRAST, 2021-01-05 15:52:00 [facility] W DOPPLER ([id number]) HC COMPLETE BLD COUNT 2021-01-05 09:45:00 [facility] W/AUTO DIFF LIPID PANEL 2021-01-05 09:45:00 [facility] THYROID STIMULATING 2021-01-05 09:45:00 [facility] HORMONE COVID-19 QUALITATIVE 2021-01-04 20:02:00 [facility] RT-PCR URINE CULTURE 2021-01-04 18:14:00 [facility] URINALYSIS SCREEN AND 2021-01-04 18:14:00 [facility] MICROSCOPY, WITH REFLEX TO CULTURE ECG 12-LEAD 2021-01-04 18:00:26 [facility] CT ANGIOGRAM NECK W WO 2021-01-04 17:45:55 [facility] CONTRAST CT ANGIOGRAM HEAD W WO 2021-01-04 17:45:13 [facility] CONTRAST CT STROKE BRAIN WO 2021-01-04 17:24:07 [facility] CONTRAST ECG ED PRELIMINARY 2021-01-04 17:15:07 [facility] INTERPRETATION POC GLUCOSE 2021-01-04 17:10:00 [facility] HC COMPLETE BLD COUNT 2021-01-04 17:05:00 [facility] W/AUTO DIFF COMPREHENSIVE METABOLIC 2021-01-04 17:05:00 Emigdio Bernard [facility] PANEL ESTIMATED GFR 2021-01-04 17:05:[address] [facility] Procedure on [place]inger [place] [facility] Extracorporeal Shockwave [place] Lithotripsy of [facility] Plan of Care Planned Activity Planned Date Details Comments Source Future Scheduled Test 2024-02-[address] [facility] 00:00:00 (procedure) [code = [facility] 48708636] Future Scheduled Test 2024-02-[address] [facility] 00:00:00 (procedure) [code = [facility] [id number]] Future Scheduled Test 2024-02-[address] [facility] 00:00:00 (procedure) [code = [facility] [id number]] Future Scheduled Test 2023-11-[address] [facility]00 [facility] Screening (12+) [code = Tobacco Cessation Counseling and Screening (12+)] Future Scheduled Test 2023-01-04 Screening for [facility] 13:58:41 malignant neoplasm of Hospit al colon (procedure) [code = 252773860] Future Scheduled Test 2023-01-04 Screening for [facility] 13:58:41 malignant neoplasm of Hospit al colon (procedure) [code = 854851748] Future Scheduled Test 2023-01-04 Screening for [facility] dist 13:58:41 malignant neoplasm of Hospit al colon (procedure) [code = [id number]] Future Scheduled Test 2023-01-04 COVID-19 VACCINE (#1) [facility] 13:58:41 [code = COVID19 Hospital VACCINE (#1)] Future Scheduled Test 2023-01-04 Pneumococcal Vaccine: [facility] 13:58:41 Pediatrics (0 to 5 Hospital Years) and At-Risk Patients (6 to 64 Years) (1 - PCV) [code = Pneumococcal Vaccine: Pediatrics (0 to 5 Years) and At-Risk Patients (6 to 64 Years) (1 - PCV)] Future Scheduled Test 2023-01-04 Hepatitis C screening [facility] 13:58:41 (procedure) [code = Hospital [id number]] Future Scheduled Test 2023-01-04 SHINGLES VACCINES (1 [facility] 13:58:41 of 2) [code = SHINGLES Hospi suki VACCINES (1 of 2)] Future Scheduled Test 2023-01-04 Screening for [facility] dist 13:58:41 malignant neoplasm of Hospit al colon (procedure) [code = 677753733] Future Scheduled Test 2023-01-04 Screening for Metho dist 13:58:41 malignant neoplasm of Hospit al colon (procedure) [code = 297630855] Future Scheduled Test 2023-01-04 INFLUENZA VACCINE (#1) [facility] 13:58:41 [code = INFLUENZA Hospital VACCINE (#1)] Future Scheduled Test 2022-11-02 Influenza Vaccine (#1) [facility] 00:00:00 [code = Influenza Medical Ce nter Vaccine (#1)] Future Scheduled Test 2021-11-02 INFLUENZA VACCINE (#1) [facility] 00:00:00 [code = INFLUENZA Medical Ce nter VACCINE (#1)] Future Scheduled Test 2021-11-02 INFLUENZA VACCINE (#1) [facility] 00:00:00 [code = INFLUENZA Medical Ce nter VACCINE (#1)] Future Scheduled Test 2021-10-26 HEPATITIS B VACCINES [facility] 17:22:52 (1 of 3 - 3-dose Hospital series) [code = HEPATITIS B VACCINES (1 of 3 - 3-dose series)] Future Scheduled Test 2021-10-26 COVID-19 VACCINE (#1) [facility] 17:22:52 [code = COVID-19 Hospital VACCINE (#1)] Future Scheduled Test 2021-10-26 Hepatitis C screening [facility] 17:22:52 (procedure) [code = Hospital [id number]] Future Scheduled Test 2021-10-26 COLONOSCOPY SCREENING [facility] 17:22:52 [code = COLONOSCOPY Hospital SCREENING] Future Scheduled Test 2021-10-26 SHINGLES VACCINES (1 [facility] 17:22:52 of 2) [code = SHINGLES Hospi suki VACCINES (1 of 2)] Future Scheduled Test 2021-10-26 INFLUENZA VACCINE M ethodist 17:22:52 [code = INFLUENZA Hospital VACCINE] Future Scheduled Test 2021-10-26 HEPATITIS B VACCINES [facility] 17:22:52 (1 of 3 - 3-dose Hospital series) [code = HEPATITIS B VACCINES (1 of 3 - 3-dose series)] Future Scheduled Test 2021-10-26 COVID-19 VACCINE (#1) [facility] 17:22:52 [code = COVID-19 Hospital VACCINE (#1)] Future Scheduled Test 2021-10-26 Hepatitis C screening [facility] 17:22:52 (procedure) [code = Hospital 731659490] Future Scheduled Test 2021-10-26 COLONOSCOPY SCREENING [facility] 17:22:52 [code = COLONOSCOPY Hospital SCREENING] Future Scheduled Test 2021-10-26 SHINGLES VACCINES (1 [facility] 17:22:52 of 2) [code = SHINGLES Hospi suki VACCINES (1 of 2)] Future Scheduled Test 2021-10-26 INFLUENZA VACCINE M ethodist 17:22:52 [code = INFLUENZA Hospital VACCINE] Future Scheduled Test 2021-03-[address] [facility] 00:00:00 (12+) [code = Medical Center DEPRESSION SCREENING (12+)] Future Scheduled Test 2021-03-[address] [facility] 00:00:00 (12+) [code = Medical Center DEPRESSION SCREENING (12+)] Future Scheduled Test 2013 SHINGLES VACCINES ([address] [facility] 00:00:00 of 2) [code = SHINGLES Medic al Center VACCINES (1 of 2)] Future Scheduled Test 2013 SHINGLES VACCINES ([address] [facility] 00:00:00 of 2) [code = SHINGLES Medic al Center VACCINES (1 of 2)] Future Scheduled Test 1982 DTAP/TDAP/TD VACCINES [facility] 00:00:00 (1 - Tdap) [code = Medical C enter DTAP/TDAP/TD VACCINES (1 - Tdap)] Future Scheduled Test 1982 DTAP/TDAP/TD VACCINES [facility] 00:00:00 (1 - Tdap) [code = Medical C enter DTAP/TDAP/TD VACCINES (1 - Tdap)] Future Scheduled Test 1982 DTAP/TDAP/TD VACCINES [facility] 00:00:00 (1 - Tdap) [code = Medical C enter DTAP/TDAP/TD VACCINES (1 - Tdap)] Future Scheduled Test 1982 SHINGLES VACCINES ([address] [facility] 00:00:00 of 2) [code = SHINGLES Medic al Center VACCINES (1 of 2)] Future Scheduled Test [address] [facility] 00:00:00 0-64 YRS (1 - PCV) Medical C enter [code = PNEUMOCOCCAL VACCINE 0-64 YRS (1 - PCV)] Future Scheduled Test [address] [facility] 00:00:00 0-64 YRS (1 - PCV) Medical C enter [code = PNEUMOCOCCAL VACCINE 0-64 YRS (1 - PCV)] Future Scheduled Test 1969 Pneumococcal Vaccine: [facility] 00:00:00 0-64 Years (1 - PCV) Medical Center [code = Pneumococcal Vaccine: 0-64 Years (1 - PCV)] Future Scheduled Test 1963 COVID-19 VACCINE (#1) [facility] 00:00:00 [code = COVID-[address] VACCINE (#1)] Future Scheduled Test 1963 COVID-19 VACCINE (#1) [facility] 00:00:00 [code = COVID-[address] VACCINE (#1)] Future Scheduled Test 1963 COVID-19 VACCINE (#1) [facility] 00:00:00 [code = COVID-[address] VACCINE (#1)] Future Scheduled Test [address] [facility] 00:00:00 (combo) [code = CT Medical C enter Colonography (combo)] Future Scheduled Test 1963 [facility] malignant neoplasm of Medica l Center colon (procedure) [code = 793368376] Future Scheduled Test 1963 [facility] malignant neoplasm of Medica l Center colon (procedure) [code = 873151668] Future Scheduled Test 1963 [facility] malignant neoplasm of Medica l Center colon (procedure) [code = 742683156] Future Scheduled Test 1963 [facility] malignant neoplasm of Medica l Center colon (procedure) [code = 305337689] Future Scheduled Test 1963 Sigmoidoscopy [code = [facility] 00:00:00 Sigmoidoscopy] Medical Cyndy r Future Scheduled Test [address] [facility] 00:00:00 (combo) [code = CT Medical C enter Colonography (combo)] Future Scheduled Test 1963 [facility] malignant neoplasm of Medica l Center colon (procedure) [code = 178806962] Future Scheduled Test 1963 [facility] malignant neoplasm of Medica l Center colon (procedure) [code = 326343393] Future Scheduled Test 1963 [facility] malignant neoplasm of Medica l Center colon (procedure) [code = 835868869] Future Scheduled Test 1963 [facility] malignant neoplasm of Medica l Center colon (procedure) [code = 989917528] Future Scheduled Test 1963 Sigmoidoscopy [code = [facility] 00:00:00 Sigmoidoscopy] Medical Cyndy r Future Scheduled Test [address] [facility] 00:00:00 (combo) [code = CT Medical C enter Colonography (combo)] Future Scheduled Test 1963 [facility] malignant neoplasm of Medica l Center colon (procedure) [code = 815555040] Future Scheduled Test 1963 [facility] malignant neoplasm of Medica l Center colon (procedure) [code = 021631931] Future Scheduled Test 1963 [facility] malignant neoplasm of Medica l Center colon (procedure) [code = 829197266] Future Scheduled Test 1963 [facility] malignant neoplasm of Medica l Center colon (procedure) [code = 453438940] Future Scheduled Test 1963 Sigmoidoscopy [code = [facility] 00:00:00 Sigmoidoscopy] Medical Cyndy alvarez Instructions [facility] Encounters Start End Encounter Admission Attending Care Care Encounter Source Date/Time Date/Time Type Type Clinicians Facility Department ID 2021-02-09 Inpatient SHERICE MCCARTHY RAD [id number] [facility] 11:15:00 [facility] 2020-12-07 Outpatient MORALES SLE Surgery [id number] [facility] 09:06:16 ELADIOSUZY 2023-03-12 2023-03-12 Outpatient EL [facility] SLE [id number] [facility] 00:00:00 00:00:00 , ESTELLA 2023-03-12 2023-03-12 Outpatient EL [facility] [id number] SLE 00:00:00 00:00:00 2023-01-03 2023-01-03 Outpatient Hawkins_M MMG MMG [id number] [place] 00:00:00 00:00:00 1102 [facility] 2023-01-02 2023-01-02 Telephone Fabio [facility] [id number] CORNELIA Arguelles 00:00:00 00:00:00 [facility] 2023-01-01 2023-01-01 Outpatient ELISE BORJA [facility] [id number] [place] 14:42:00 14:42:00 MARY ELLEN -[id number] [facility] 2023-01-01 2023-01-01 Outpatient Hawkins_M MMG MMG [id number] [place] 00:00:00 00:00:00 1031 [facility] 2022-12-31 2022-12-31 Telephone Frederic [facility] [id number] CORNELIA Arguelles 00:00:00 00:00:00 , [facility] 2022-11-27 2022-11-27 Telephone Fabio [facility] [id number] CORNELIA Arguelles 00:00:00 00:00:00 [facility] 2022-11-25 2022-11-25 Outpatient Hawkins_M MMG MMG [id number] [place] 00:00:00 00:00:00 0924 [facility] 2022-11-21 2022-11-21 Telephone Frederic [facility] [id number] CORNELIA Arguelles 00:00:00 00:00:00 , [facility] 2022-11-21 2022-11-21 [facility] [id number] [id number] 00:[facility] 00:00:00 , [facility] 2022-11-09 2022-11-09 Outpatient Glo ROBLESG [facility] 83440 -[id number] [place] 00:00:00 00:00:00 0908 [facility] 2022-11-09 2022-11-09 Mary Ellen [facility] [place] - [id number] M atagor 00:00:00 00:00:00 Ines santillan [facility] Medical OUTSIDE PROPERTY AGENT: [address] [facility] [address], [place] [address] , Ph. 2022-11-07 2022-11-07 Telephone [facility] [id number] 00:00[facility]00 00:00:00 , [facility] 2022-11-06 2022-11-06 Office [facility] [id number] [facility] 10:20:00 13:58:48 Visit , [facility] 2022-11-06 2022-11-[address] [facility] SLE [id number] SLEH 09:45:51 13:58:48 , [facility] 2022-11-06 2022-11-06 Treatment [facility] [id number] [facility] 10:00:00 10:15:00 , [facility] 2022-11-06 2022-11-06 Outpatient EL SLE SLE [id number] SLEH 09:33:15 09:33:15 2022-11-02 2022-11-02 Levi Rowland [facility] [id number] 00:00:00 00:00:00 Only [facility] 2022-08-14 2022-08-14 Ra Pal 1.2.840.1 [id number] Methodi 13:00:00 23:59:00 Encounter Lavonne Winter. 44643.1.[address] 3.430.2.7 Hospit a .3.150525 l .8 2022-08-14 2022-08-14 [facility], 1.2.840.1 [id number] Methodi 11:09:05 12:59:00 Encounter Premal Gillian 77768.1.[address] 3.430.2.7 Hospit a .3.811607 l .8 2022-08-14 2022-08-14 Outpatient [facility] [id number] [place] 00:00:00 00:00:00 PREMAL [address] 2022-08-14 2022-08-14 Outpatient [facility] [id number] [place] 00:00:00 00:00:00 PREMAL [address] 2022-08-14 2022-08-14 Travel 1.2.840.1 1.2.729.564 9417 412136 Methodi 00:00:00 00:00:[address] 3.430.2.7 0.2.7.3.698 Ho spita .3.505396 084.8 l .8 2022-08-02 2022-08-02 Outpatient Elvira_Ceferino [facility] [id number] [place] 00:00:00 00:00:00 0601 [facility] 2022-08-02 2022-08-02 Mary Ellen [facility] [place] - [id number] M atagor 00:00:00 00:00:00 Ines Hernandez [facility] Medical OUTSIDE PROPERTY AGENT: [address] [facility], [place] [address] , Ph. 2022-08-01 2022-08-[address] [facility] [id number] [facility] 13:00:00 14:51:19 Visit , Estella terrell [facility] 2022-08-01 2022-08-01 Outpatient EL FREDERIC SLE SLE [id number] SLEH 11:29:55 14:51:19 , ESTELLA 2022-08-01 2022-08-01 Treatment Teebrantu [facility] [id number] 14:30:00 14:45:00 , [facility] 2022-08-01 2022-08-01 [facility] [id number] SLE 11:08:21 11:08:21 2022-08-01 2022-08-01 Travel [facility] [id number] [facility] 00:00:00 00:00:00 [facility] 2022-07-31 2022-07-31 Levi Rowland [facility] [id number] 00:00:00 00:00:00 Only [facility] 2022-07-27 2022-07-27 Travel 1.2.840.1 1.2.946.955 6631 [id number] Methodi 00:00:00 00:00:[address] 3.430.2.7 0.2.7.3.698 Ho spita .3.226250 084.8 l .8 2022-07-11 2022-07-11 [facility] D 1.2.840.1 [id number] Methodi 10:33:55 23:59:00 Encounter Lavonne Winter 62693.1.[address] 3.430.2.7 Hospit a .3.093202 l .8 2022-07-11 2022-07-11 Outpatient [facility] [id number] [place] 00:00:00 00:00:00 [facility] [address] 2022-07-11 2022-07-11 Travel 1.2.840.1 1.2.419.033 5493 [id number] Methodi 00:00:00 00:00:[address] 3.430.2.7 0.2.7.3.698 Ho spita .3.159693 084.8 l .8 2022-07-05 2022-07-05 Abstract Lindsey Calabrese 1.2.840.1 [id number] 2 [id number] Methodi 00:00:00 00:00:[address] 3.430.2.7 Hospit a .3.414770 l .8 2022-07-04 2022-07-04 Outpatient Glo [facility] [id number] [place] 00:00:00 00:00:00 0503 [facility] 2022-06-21 2022-06-21 Abstract Lindsey Calabrese 1.2.840.1 [id number] Methodi 00:00:00 00:00:[address] 3.430.2.7 Hospit a .3.040321 l .8 2022-06-20 2022-06-20 [facility] 1.2.840.1 [id number] 216 [id number] Methodi 08:00:00 23:59:00 Encounter MoyLavonne 70350.1.[address] 3.430.2.7 Hospit a .3.376449 l .8 2022-06-20 2022-06-20 [facility] [id number] [place] 00:00:00 00:00:00 [facility] [address] 2022-06-20 2022-06-20 Travel 1.2.840.1 1.2.132.528 3833 [id number] Methodi 00:00:00 00:00:[address] 3.430.2.7 0.2.7.3.698 Ho spita .3.486205 084.8 l .8 2022-06-19 2022-06-19 John TOLBERT [place] - [id number] M atagor 00:00:00 00:00:00 Namita Reynoso da DO: [address] [employer] [place] [address], HOP - [place]HOP a l [facility] [address] Sally , Ph. Program 2022-06-17 2022-06-17 Outpatient ANGELES_KANNAN TOLBERT AZHOP 121 991- [place] 00:00:00 00:00:00 K [address] [facility] 2022-06-17 2022-06-17 Outpatient ROSENDO PATTONHOP AZHOP 121 991- [place] 00:00:00 00:00:00 K 45813 [facility] 2022-06-17 2022-06-17 Outpatient ROSENDO TOLBERT MEHOP 121 991- [place] 00:00:00 00:00:00 K [address] [facility]22-06-11 2022-06-11 [facility] 1.2.840.1 [id number] 216 [id number] Methodi 09:45:17 23:59:00 Encounter Lavonne Winter 85745.1.[address] 3.430.2.7 Hospit a .3.960218 l .8 2022-06-11 2022-06-11 Outpatient [facility] [id number] [address] [place] [address] 00:00:00 00:00:00 PREMOR [address] 2022-06-11 2022-06-11 Travel 1.2.840.1 1.2.701.971 4250 194583 Methodi 00:00:00 00:00:[address] 3.430.2.7 0.2.7.3.698 spita .3.714668 084.8 l .8 2022-06-04 2022-06-04 [facility] Gillian 1.2.840.1 [id number] 216 [id number] Methodi 10:51:37 23:59:00 Encounter Lavonne Winter 22406.1.[address] 3.430.2.7 Hospit a .3.828823 l .8 2022-06-04 2022-06-04 Outpatient [facility] [id number] [place] 00:00:00 00:00:00 PREMAL 486 Method i 2022-06-04 2022-06-04 Travel 1.2.840.1 1.2.749.082 3826 152971 Methodi 00:00:00 00:00:[address] 3.430.2.7 0.2.7.3.698 Ho spita .3.577779 084.8 l .8 2022-05-11 2022-05-31 [facility] 1.2.840.1 [id number] 208 [id number] Methodi 08:14:00 18:59:00 Jens Butler 85990.1.1 946 [facility] 3.430.2.7 [facility] .3.986838 l .8 2022-05-11 2022-05-31 Inpatient [facility] 078 [id number] 63 [place] 00:00:00 00:00:00 PREMAL 946 Method i 2022-05-11 2022-05-11 Travel 1.2.840.1 1.2.882.863 6082 173570 Methodi 00:00:00 00:00:[address] 3.430.2.7 0.2.7.3.698 Ho spita .3.966075 084.8 l .8 2022-05-10 2022-05-10 [facility] 1.2.840.1 [id number] 16 [id number] Methodi 09:53:40 23:59:00 Ra Jackson 88170.1.1 4 11 Lavonne MaysChad 3.430.2.7 [facility] .3.687160 l .8 2022-05-10 2022-05-10 Outpatient [facility] [id number] 462 [place] 00:00:00 00:00:00 PREMAL 411 Method i 2022-05-10 2022-05-10 Transcribe Lulla, 1.2.840.1 [id number] 697 [id number] Methodi 00:00:00 00:00:00 Orders Ra Maldonado. 02267.1.[address] 3.430.2.7 Hospit a .3.134167 l .8 2022-05-10 2022-05-10 Orders Oki, 1.2.840.1 [id number] 5185 Methodi 00:00:00 00:00:00 Only Nathan 47242.1.[address] 3.430.2.7 Hospit a .3.218870 l .8 2022-05-10 2022-05-10 Travel 1.2.840.1 1.2.283.547 5830 692923 Methodi 00:00:00 00:00:[address] 3.430.2.7 0.2.7.3.698 Ho spita .3.785023 084.8 l .8 2022-05-07 2022-05-07 Orders Barrett, 1.2.840.1 [id number] 6816 Methodi 00:00:00 00:00:00 Only Jens 78358.1.[address] [place] 3.430.2.7 Hospit a .3.899070 l .8 2022-05-07 2022-05-07 Orders [place], 1.2.840.1 [id number] 842175 0587 Methodi 00:00:00 00:00:00 Only Ra Maldonado. 01339.1.[address] 3.430.2.7 Hospit a .3.488389 l .8 2022-05-07 2022-05-07 Orders Jak, 1.2.840.1 [id number] 8882 Methodi 00:00:00 00:00:00 Only Disha 65435.1.[address] 3.430.2.7 Hospit a .3.577185 l .8 2022-05-03 2022-05-03 Episode Lindsey Calabrese 1.2.840.1 [id number] 21 [id number] Methodi 00:00:00 00:00:00 Shante Elizabeth 97810.1.[address] 3.430.2.7 Hospit a .3.189565 l .8 2022-04-25 2022-04-25 [facility] Fabian [place] 1.2.840.1 [id number] 16 [id number] Methodi 23:59:00 23:59:00 Encounter Ra Nelson 74092.1.1 2 64 [facility]. 3.430.2.7 Hospita .3.533679 l .8 2022-04-25 2022-04-25 Outpatient [facility] [id number] 576 [place] 00:00:00 00:00:00 PREMAL [address] 2022-04-22 2022-04-24 [facility] RaffyMaryan Song 1.2.840.1 10 [id number] Methodi 09:54:00 15:12:00 Encounter Nghia Wei 00651.1.1 254 [facility] 3.430.2.7 Hospita .3.044477 l .8 2022-04-22 2022-04-24 [facility] 064 [id number] 87 [place] 00:00:00 00:00:00 FABIAN [address] 2022-04-23 2022-04-23 [facility] 1.2.840.1 [id number] 216 [id number] Methodi 23:59:00 23:59:00 Encounter Angella Driver 43247.1.[address] 3.430.2.7 Hospit a .3.638987 l .8 2022-04-23 2022-04-23 [facility] 1.2.840.1 [id number] 64534 32584 Methodi 08:00:00 23:59:00 Encounter Ra French 31168.1.[address] 3.430.2.7 Hospit a .3.238345 l .8 2022-04-23 2022-04-23 Outpatient [facility] [id number] 264 [place] 00:00:00 00:00:00 PREMAL [address] 2022-04-23 2022-04-23 Outpatient [facility] [id number] 493 [place] 00:00:00 00:00:00 PREMAL [address] 2022-04-22 2022-04-22 Travel 1.2.840.1 1.2.482.337 3112 289463 Methodi 00:00:00 00:00:[address] 3.430.2.7 0.2.7.3.698 Ho spita .3.109935 084.8 l .8 2022-04-20 2022-04-20 [facility] Gillian 1.2.840.1 [id number] 216 [id number] Methodi 07:44:21 23:59:00 Encounter Renea Sweet 37746.1.[address] 3.430.2.7 Hospit a .3.130205 l .8 2022-04-20 2022-04-20 Outpatient [facility] [id number] 493 [place] 00:00:00 00:00:00 PREMAL [address] 2022-04-20 2022-04-20 Social Bernardino, 1.2.840.1 [id number] [id number] 0604 Methodi 00:00:00 00:00:00 Work Lesly 84203.1.[address] 3.430.2.7 Hospit a .3.176542 l .8 2022-04-20 2022-04-20 Poly Nunez 1.2.840.1 [id number] 259 [id number] Methodi 00:00:00 00:00:[address] 3.430.2.7 Hospit a .3.576168 l .8 2022-04-20 2022-04-20 Travel 1.2.840.1 1.2.748.253 7461 306228 Methodi 00:00:00 00:00:[address] 3.430.2.7 0.2.7.3.698 Ho spita .3.860487 084.8 l .8 2022-04-19 2022-04-19 Abstract Lindsey Calabrese 1.2.840.1 [id number] 2 [id number] Methodi 00:00:00 00:00:[address] 3.430.2.7 Hospit a .3.662318 l .8 2022-04-18 2022-04-18 Outpatient [facility] 121 991-202 [facility] 00:00:00 00:00:00 K 63[address] da [facility] Program 2022-04-17 2022-04-17 [facility] D. 1.2.840.1 [id number] 216 [id number] Methodi 07:47:21 23:59:00 Encounter Lavonne WinterChad 23472.1.[address] 3.430.2.7 Hospit a .3.446012 l .8 2022-04-17 2022-04-17 Outpatient [facility] [id number] 493 [place] 00:00:00 00:00:00 PREMAL [address] 2022-04-17 2022-04-17 Travel 1.2.840.1 1.2.755.251 1838 320018 Methodi 00:00:00 00:00:[address] 3.430.2.7 0.2.7.3.698 spita .3.351177 084.8 l .8 2022-04-10 2022-04-12 [facility] DChad 1.2.840.1 802816 208 [id number] Methodi 07:59:00 15:27:00 Encounter Veronika Rausch 18650.1.[address] 3.430.2.7 Hospit a .3.121535 l .8 2022-04-10 2022-04-12 Outpatient [place] 67431 [id number] 0306 [place] 00:00:00 00:00:[address] 2022-04-10 2022-04-10 Orders Shalom, 1.2.840.1 [id number] 69518 34987 Methodi 00:00:00 00:00:00 Only Veronika 17573.1.1 082 s t 3.430.2.7 Hospit a .3.843883 l .8 2022-04-10 2022-04-10 Orders Lulla, 1.2.840.1 [id number] 000712 8578 Methodi 00:00:00 00:00:00 Only Premal D. [address]857.1.[address] 3.430.2.7 Hospit a .3.613497 l .8 2022-04-10 2022-04-10 Travel 1.2.840.1 1.2.835.884 3539 037057 Methodi 00:00:00 00:00:[address] 3.430.2.7 0.2.7.3.698 Ho spita .3.009559 084.8 l .8 2022-04-09 2022-04-09 Orders Oki, 1.2.840.1 [id number] 510707 3932 Methodi 00:00:00 00:00:00 Only Nathan 15367.1.[address] 3.430.2.7 Hospit a .3.808914 l .8 2022-04-09 2022-04-09 Orders Tate, 1.2.840.1 [id number] 083101 2641 Methodi 00:00:00 00:00:00 Only Cortney 39561.1.[address] 3.430.2.7 Hospit a .3.791843 l .8 2022-04-09 2022-04-09 Orders Lulla, 1.2.840.1 [id number] 580561 1597 Methodi 00:00:00 00:00:00 Only Mikaal D. 37676.1.[address] 3.430.2.7 Hospit a .3.211545 l .8 2022-04-09 2022-04-09 Abstract Lindsey Calabrese 1.2.840.1 [id number] 2 [id number] Methodi 00:00:00 00:00:[address] 3.430.2.7 Hospit a .3.878111 l .8 2022-04-02 2022-04-02 Orders Lindsey Calabrese 1.2.840.1 [id number] 21 [id number] Methodi 00:00:00 00:00:00 Only Glenn 10319.1.[address] 3.430.2.7 Hospit a .3.113133 l .8 2022-03-27 2022-03-[facility] 1.2.840.1 375302 216 [id number] Methodi 10:27:52 23:59:00 Encounter Lavonne WinterChad 74613.1.[address] 3.430.2.7 Hospit a .3.799920 l .8 2022-03-27 2022-03-27 [facility] [id number] 574 [place] 00:00:00 00:00:00 [place] [address] 2022-03-27 2022-03-27 Travel 1.2.840.1 1.2.546.976 6644 898473 Methodi 00:00:00 00:00:[address] 3.430.2.7 0.2.7.3.698 Ho spita .3.302106 084.8 l .8 2022-03-21 2022-03-21 Outpatient ANGELES_KANNAN [facility] 121 991- [place] 00:00:00 00:00:00 [facility] [address] [facility] 2022-03-21 2022-03-21 Outpatient ANGELES_KANNAN [facility] 121 991- [place] 00:00:00 00:00:00 K 15940 [facility] 2022-03-21 2022-03-21 Outpatient ANGELES_KANNAN [facility] 121 991- [place] 00:00:00 00:00:00 K 59982 [facility] 2022-03-21 2022-03-21 John Martinez [facility] [place] - [id number] Ceferino guzman 00:00:00 00:00:00 Namita Reynoso MD: [id number] [employer]r [place] [address] [place] - [facility] a l [facility] [id number] Sally , Ph. Program 2022-03-19 2022-03-19 Outpatient ANGELES_KANNAN [facility] [phone] [place] 00:00:00 00:00:00 K 49902 [facility] 2022-03-14 2022-03-14 [facility] Premal D. 1.2.840.1 [id number] 216 [id number] Methodi 11:36:47 23:59:00 Encounter Lavonne Winter 16723.1.[address] 3.430.2.7 Hospit a .3.412989 l .8 2022-03-14 2022-03-14 [facility], 1.2.840.1 [id number] 02328 92261 Methodi 09:29:54 11:35:00 Encounter Premal Gillian 24685.1.[address] 3.430.2.7 Hospit a .3.422647 l .8 2022-03-14 2022-03-14 Outpatient [facility] [id number] [place] 00:00:00 00:00:00 PREMAL [address] 2022-03-14 2022-03-14 Outpatient [facility] [id number] [place] 00:00:00 00:00:00 PREMAL [address] 2022-03-14 2022-03-14 Social Lebron, 1.2.840.1 [id number] 5178 Methodi 00:00:00 00:00:00 Work Lesly 02694.1.[address] 3.430.2.7 Hospit a .3.921604 l .8 2022-03-13 2022-03-13 [place] 36483.2.840.1 [id number] 23540 Methodi 15:44:11 23:59:00 Encounter Premal DChad 50741.1.[address] 3.430.2.7 Hospit a .3.628294 l .8 2022-03-13 2022-03-13 [facility], 1.2.840.1 [id number] 93431 Methodi 14:41:19 15:43:00 Encounter Premal D. 45808.1.[address] 3.430.2.7 Hospit a .3.069344 l .8 2022-03-13 2022-03-13 [facility], 1.2.840.1 [id number] 11557 98413 Methodi 12:19:24 14:40:00 Encounter Premal D. 01523.1.[address] 3.430.2.7 Hospit a .3.130542 l .8 2022-03-13 2022-03-13 [facility], 1.2.840.1 [id number] 74836 09368 Methodi 09:53:57 12:18:00 Encounter Premal D. 49800.1.[address] 3.430.2.7 Hospit a .3.836895 l .8 2022-03-13 2022-03-13 Outpatient [facility] [id number] [place] 00:00:00 00:00:00 PREMAL 494 Method i 2022-03-13 2022-03-13 Outpatient [facility] [id number] [place] 00:00:00 00:00:00 PREMAL 663 Method i 2022-03-13 2022-03-13 Outpatient [facility] [id number] [place]ck[place] 00:00:00 00:00:00 PREMAL 186 Method i 2022-03-13 2022-03-13 Outpatient [facility] [id number] [place]ck[place] 00:00:00 00:00:00 PREMAL 491 Method i 2022-03-13 2022-03-13 Travel 1.2.840.1 1.2.641.913 5220 560210 Methodi 00:00:00 00:00:[address] 3.430.2.7 0.2.7.3.698 Ho spita .3.619616 084.8 l .8 2022-03-12 2022-03-12 Abstract Lindsey Calabrese 1.2.840.1 [id number] 2 [id number] Methodi 00:00:00 00:00:[address] 3.430.2.7 Hospit a .3.292103 l .8 2022-03-09 2022-03-09 Outpatient ANGELESKANNAN [facility] 121 [id number] [facility] 00:00:00 00:00:00 K 51580 da [facility] Program 2022-03-08 2022-03-08 Orders Lindsey Calabrese 1.2.840.1 [id number] 21 [id number] Methodi 00:00:00 00:00:00 Only Glenn 01842.1.[address] 3.430.2.7 Hospit a .3.601989 l .8 2022-03-07 2022-03-07 Travel 1.2.840.1 1.2.601.896 3050 756354 Methodi 00:00:00 00:00:[address] 3.430.2.7 0.2.7.3.698 Ho robbta .3.057775 084.8 l .8 2022-03-07 2022-03-07 Orders Lindsey Calabrese 1.2.840.1 [id number] 21 [id number] Methodi 00:00:00 00:00:00 Only Glenn 25547.1.[address] 3.430.2.7 Hospit a .3.156406 l .8 2022-02-27 2022-02-27 [facility] [id number] [facility] 00:[facility] 00:00:00 Encounter , Estella Natarajan [facility] 2022-02-22 2022-02-22 [facility], 1.2.840.1 [id number] 63186 Methodi 09:43:23 23:59:00 Encounter Premal Gillian 56300.1.[address] 3.430.2.7 Hospit a .3.909317 l .8 2022-02-22 2022-02-22 Outpatient LESLIE [facility] [id number] [place] 00:00:00 00:00:00 PREMAL [address] 2022-02-22 2022-02-22 Travel 1.2.840.1 1.2.024.568 5163 804502 Methodi 00:00:00 00:00:[address] 3.430.2.7 0.2.7.3.698 Ho spita .3.274862 084.8 l .8 2022-01-23 2022-01-23 Travel 1.2.840.1 1.2.332.442 0180 458117 Methodi 00:00:00 00:00:[address] 3.430.2.7 0.2.7.3.698 Ho spita .3.597812 084.8 l .8 2021-12-18 2021-12-18 Outpatient [facility] [id number] SLE 00:00:00 00:00:00 , ESTELLA 2021-12-15 2021-12-15 Outpatient [facility] [id number] SLE 00:00:00 00:00:00 , ESTELLA 2021-11-27 2021-12-01 [facility] [id number] [facility] 01:41:00 13:26:00 SURAJ 2021-11-26 2021-11-27 emergency [id number] 19:49:00 00:20:00 2381-551e [id number] 5eb 2021-11-26 2021-11-27 Emergency ER JAD, [facility] [id number] [facility] 19:49:00 00:20:00 SHAKIR [id number] [facility] 2021-11-15 2021-11-19 Inpatient EL MARILIN, SLE Hem [id number] SLEH 11:37:00 11:38:00 UMAR Oncology 2021-10-31 2021-11-02 Inpatient ER MÓNICA [facility] Medical ICU [id number] SLSL 04:11:00 17:11:00 BLAZE 2021-10-30 2021-10-31 Emergency ER BROWN, [facility] [id number] [place] 21:22:00 03:06:00 LAY -[id number] [facility] 2021-10-18 2021-10-24 Inpatient EL GUIDO LOPEZ SLE Hem [id number] SLEH 13:24:00 10:58:00 Oncology 2021-10-18 2021-10-24 [facility] SamabbeyleonelmertSuraj [facility] [id number] 13:24:00 10:58:00 Encounter Jessica [facility] 2021-10-18 2021-10-18 Clinical Samcorey hospitalmertIkeSuraj [facility] [id number] 11:00:00 11:15:00 Support Gayle Mora [facility] 2021-10-18 2021-10-18 Outpatient EL SLE SLEH [id number] SLEH 10:58:42 10:58:42 2021-10-11 2021-10-11 Outside [facility] [id number] 00:00:00 00:00:00 Estella Sims [facility] 2021-10-05 2021-10-07 Outpatient ER EMETERIO, SLE Gastro [id number] SLEH 22:58:00 13:46:00 [facility] 2021-10-05 2021-10-07 Hospital ER Carly Dhillon [facility] [id number] 22:58:00 13:46:00 Encounter Zuly Todd [facility] Emeterio, [facility] 2021-10-05 2021-10-05 Emergency ER STEVE, [facility] [id number] [place] 13:15:00 21:30:00 TASH -[id number] [facility] 2021-09-21 2021-09-26 Inpatient EL CELIA WAITE [facility] Med [id number] SLEH 11:08:00 14:35:00 MAGDA 2021-09-21 2021-09-26 [facility] Carly Dhillon [facility] [id number] 11:08:00 14:35:00 Encounter Magda Waite [facility] 2021-09-18 2021-09-18 Outpatient EL TEEAMARIAPU [facility] D00 [id number] [place] 10:16:00 10:16:00 , ESTELLA -[id number] [facility] 2021-09-14 2021-09-14 Outpatient UR TEEBRANTU [facility] D00 [id number] [place] 11:56:00 11:56:00 , ESTELLA -[id number] [facility] 2021-08-29 2021-09-12 Inpatient ER [facility] Surgery [id number] SLE 20:02:00 15:05:00 , ELDON 2021-08-29 2021-09-12 [facility] ER Kvng Gonzalez [facility] [id number] 20:02:00 15:05:00 Encounter [facility] 2021-09-06 2021-09-06 Surgery Vida [facility] [id number] 16:30:00 19:54:00 [facility] 2021-09-06 2021-09-06 Anesthesia Helen Wilcox [facility] [id number] 16:35:00 18:02:00 Event Low Ritchie [facility] 2021-08-29 2021-08-29 Emergency ER Reynolds, [facility] [id number] [place] 12:14:00 18:24:00 Yolanda -[id number] j[facility] 2021-08-29 2021-08-29 Travel [facility] [id number] [facility] 00:00:00 00:00:00 [facility] 2021-08-04 2021-08-22 Inpatient ER CELIA FERNANDEZ Surgery [id number] SLE 01:54:00 17:07:00 TASpencer 2021-08-04 2021-08-22 Hospital ER Chandler Landry [facility] [id number] [facility] 01:54:00 17:07:00 Encounter Zuly [facility] vidal Shireen 2021-08-11 2021-08-11 Anesthesia AguilamelidaSushant [facility] [id number] 07:50:00 10:48:00 Event Solitario Vargas [facility] 2021-08-11 2021-08-11 Surgery JudIke allred [facility] [id number] 08:00:00 10:30:00 [facility] 2021-08-04 2021-08-04 Travel [facility] [id number] [facility] 00:00:00 00:00:00 [facility] 2021-07-24 2021-07-24 Telephone Maurice Trujillo [facility] 1.2.840.114 [id number] Univers 00:00:00 00:00:00 HEALTH 350.1.13.10 it [place] [id number] [facility] MEDICAL [address] OFFICE BUILDING 2021-07-18 2021-07-18 Transition MICHAEL Mendoza 1.2.840.114 [id number] Univers 00:00:00 00:00:00 of Care Nellie VIVAR 350.1.13.10 i ty of [place] [id number] [facility] [address] 2021-07-05 2021-07-17 Inpatient U RAHUL SCRUGGS [facility] LAURA [id number] Univers 14:13:00 15:15:00 ity of [facility] 2021-07-05 2021-07-17 Hospital JulianasumanthJerry Enrrique MAGY 1.2.840.114 [id number] Univers 14:13:00 15:15:00 Encounter Rahul Scruggs JEROME 350.1.13.10 ity of HOSPITAL 4.2.7.2.686 Timothy as [id number] [address] 2021-07-05 2021-07-05 Office Jerry Lopes [facility] 1.2.840.114 [id number] Univers 13:30:00 13:30:00 Visit S HEALTH 350.1.13.10 it [place] [id number] [address] OFFICE BUILDING 2021-07-05 2021-07-05 Outpatient R JERRY LOPES [facility] LAURA [id number] Univers 13:30:00 12:57:50 ity [facility] 2021-06-07 2021-06-07 Telephone Apolinar [facility] 1.2.494.497 [id number] Univers 00:00:00 00:00:00 [facility] HEALTH 350.1.13.10 i [place] [id number] [address] OFFICE BUILDING 2021-06-05 2021-06-05 Office Henrique Meza [facility] 1.2.840.114 [id number] Univers 11:45:00 11:45:00 Visit HEALTH 350.1.13.10 it [place] [id number] [address] OFFICE BUILDING 2021-06-05 2021-06-05 Outpatient HENRIQUE [facility] [id number] Univers 11:45:00 11:34:59 ity [facility] 2021-06-05 2021-06-05 Outpatient [facility]ENRIQUE [facility] [id number] Univers 11:45:00 11:34:59 ity [facility] 2021-05-24 2021-05-24 Telephone Henrique Meza [facility] 1.2.840.114 [id number] Univers 00:00:00 00:00:00 HEALTH 350.1.13.10 it y [place] [id number] [address] OFFICE BUILDING 2021-05-22 2021-05-22 Outpatient R [facility] [id number] Univers 11:31:36 23:59:00 ALANNAH ity of [facility] 2021-05-22 2021-05-22 [facility] 1.2.840.114 [id number] Univers 11:31:36 23:59:00 Encounter Alannah AGUSTIN 350.1.13.10 it[place] of [place] [id number] [facility] [address] [place] 2021-05-16 2021-05-16 Telephone [facility] 1.2.840.114 [id number] Univers 00:00:00 00:00:00 Alannah [facility] 350.1.13.10 it [place] [id number] [address] OFFICE BUILDING 2021-05-10 2021-05-10 Orders Doctor PANCHO 1.2.840.114 [id number] Univers 00:00:00 00:00:00 Only Unassigned, JEROME 350.1.13.10 ity of [place] [facility] 4.2.7.2.686 Timothy [id number] [facility] [address] 2021-05-01 2021-05-01 Outpatient HENRIQUE [facility] [id number] Univers 15:00:00 17:54:03 ity of [facility] 2021-05-01 2021-05-01 Office [facility] 1.2.840.11 [id number] Univers 15:00:00 17:54:03 Visit Henrique Meza 350.1.13.10 it[place] [id number] [address] OFFICE BUILDING 2021-05-01 2021-05-01 Outpatient HENRIQUE [facility] [id number] Univers 15:00:00 17:54:03 ity of [facility] 2021-05-01 2021-05-01 Outpatient [facility] [id number] Univers 15:00:00 15:00:00 ity [facility] 2021-04-28 2021-04-28 Office [facility] 1.2.476.423 [id number] Univers 09:30:00 10:00:00 Visit [facility] 350.1.13.10 ity of [place] - [id number] [facility] [address] [place] 2021-04-28 2021-04-28 Outpatient R [facility] [id number] Univers 09:30:00 09:30:00 ORPHEUS ity [facility] 2021-04-28 2021-04-28 Outpatient R [facility] [id number] Univers 09:30:00 09:30:00 ORPHEUS ity [facility] 2021-04-25 2021-04-25 Orders Doctor PANCHO 1.2.840.114 [id number] Univers 00:00:00 00:00:00 Only Unassigned, JEROME 350.1.13.10 ity of [place] [facility] 4.2.7.2.686 Timothy as [id number] [address] 2021-03-31 2021-03-31 Office [facility] 1.2.627.778 [id number] Univers 10:30:00 11:00:00 Visit [facility] 350.1.13.10 it[place] - [id number] [facility] [address] 2021-03-31 2021-03-31 Outpatient R [facility] [id number] Univers 10:30:00 10:30:00 ORPHEUS ity [facility] 2021-03-31 2021-03-31 Outpatient R [facility] [id number] Univers 10:30:00 10:30:00 ORPHEUS ity [facility] 2021-03-28 2021-03-28 Telephone Pcp, [facility] 1.2.840.114 [id number] Univers 00:00:00 00:00:00 Patient Y HEALTH 350.1.13.10 i ty of Does Not CLINICS 4.2.7.2.686 Timothy as Have A [id number] [facility] [address] 2021-03-28 2021-03-28 Telephone Marquise, [facility] 1.2.840.114 [id number] Univers 00:00:00 00:00:00 Jdoy Y HEALTH 350.1.13.10 i ty of CLINICS [place].2.[place] [id number] [facility] [address] 2021-03-27 2021-03-27 Transition MICHAEL Mendoza 1.2.840.114 [id number] Univers 00:00:00 00:00:00 of Care Nellie VIVAR 350.1.13.10 i ty [place] [id number] [facility] [address] 2021-03-16 2021-03-24 Inpatient X JERRY LOPES [facility] STR [id number] Univers 00:00:00 15:23:00 ity [facility] 2021-03-16 2021-03-24 [facility] Pancho Myers 1.2. 840.114 [id number] Univers 00:00:00 15:23:00 Encounter Jerry Lopes JEROME 350.1.13.10 ity of [facility] 4.2.7.2.686 Timothy as [id number] [facility] [address] 2021-03-16 2021-03-24 Inpatient X JERRY LOPES [facility] STR [id number] Univers 00:00:00 15:23:00 ity [facility] 2021-03-21 2021-03-21 Documentat Yenifer 1.2.840.1 [id number] Methodi 00:00:00 00:00:00 ion Wes Chavez 02300.1.[address] 3.430.2.7 Hospit a .3.942276 l .8 2021-03-16 2021-03-16 Anesthesia Perlita Osbaldoamrit Tamez MAGY 1.2. 840.114 [id number] Univers 21:09:00 22:20:00 Event Joi Bob 350.1. 13.10 ity of [facility] 4.2.7.2.686 Timothy as [id number] [facility] [address] 2021-03-16 2021-03-16 Surgery MAGY Arreguin 1.2.840.114 [id number] Univers 20:00:00 21:30:00 Jens SIEGEL 350.1.13.10 it y of [facility] 4.2.7.2.686 Timothy as [id number] [facility] [address] 2021-03-15 2021-03-15 Emergency ER FERNANDEZ [facility] [id number] 13:03[facility]00 22:10:00 HARSHAD [id number] [facility] 2021-02-27 2021-02-27 Travel 1.2.840.1 1.2.985.664 7441 [id number] Methodi 00:00:00 00:00:[address] 3.430.2.7 0.2.7.3.698 Ho spita .3.428725 084.8 l .8 2021-02-27 2021-02-27 Transcribe Letty 1.2.840.1 [id number] Methodi 00:00:00 00:00:00 Orders Tim Funes 22728.1.1 518 s t 3.430.2.7 Hospit a .3.194324 l .8 2021-02-09 2021-02-15 [facility] Lulu Hernandez 1.2.840.1 1041 [id number] [id number] Methodi 11:39:00 18:20:00 Encounter Adiel Antony 30327.1.[address] 3.430.2.7 Hospit a .3.749861 l .8 2021-02-09 2021-02-09 Telephone Avril [facility] [id number] 00:00:00 00:00:00 [facility] 2021-02-09 2021-02-09 Travel 1.2.840.1 1.2.438.351 4547 [id number] Methodi 00:00:00 00:00:[address] 3.430.2.7 0.2.7.3.698 Ho spita .3.332294 084.8 l .8 2021-01-30 2021-01-30 Patient Andrea, 1.2.840.1 [id number] 21001 09138 Methodi 00:00:00 00:00:00 Outreach Jody 44057.1.[address] 3.430.2.7 Hospit a .3.141775 l .8 2021-01-23 2021-01-26 Hospital Lulu Hernandez 1.2.840.1 1041 [id number] [id number] Methodi 15:13:00 16:15:00 Encounter Adiel Antony 84970.1.[address] 3.430.2.7 Hospit a .3.437911 l .8 2021-01-24 2021-01-24 Orders Doctor PANCHO 1.2.840.114 [id number] Univers 00:00:00 00:00:00 Only Unassigned, JEROME 350.1.13.10 ity of [place] HOSPITAL 4.2.7.2.686 Timothy as [id number] [place] [address] [address] 2021-01-10 2021-01-10 Patient Wood, 1.2.840.1 [id number] Methodi 00:00:00 00:00:00 Outreach Alivia 44483.1.[address] 3.430.2.7 Hospit a .3.648013 l .8 2021-01-09 2021-01-09 Patient Wood, 1.2.840.1 [id number] 019 [id number] Methodi 00:00:00 00:00:00 Outreach Alivia 86822.1.[address] 3.430.2.7 Hospit a .3.137743 l .8 2021-01-08 2021-01-08 Emergency [id number] 12:27:00 16:00:00 Marcelino Falcon [facility] 2021-01-08 2021-01-08 Emergency ER TERRENCE, [facility] Emergency [id number] [id number] SLS 12:27:00 16:00:00 MARCELINO 2021-01-08 2021-01-08 Orders [facility] [id number] 00:00:00 00:00:00 Only [facility] 2021-01-08 2021-01-08 Travel [facility] [id number] [facility] 00:00:00 00:00:00 [facility] 2021-01-04 2021-01-05 Emergency Emigdio Bernard 1.2.840.1 1041 12156 [id number] Methodi 11:53:00 17:48:00 Adiel Antony 90343.1.[address] 3.430.2.7 Hospit a .3.065497 l .8 2021-01-04 2021-01-04 Travel 1.2.840.1 1.2.086.846 3326 135458 Methodi 00:00:00 00:00:[address] 3.430.2.7 0.2.7.3.698 spita .3.104926 084.8 l .8 2020-11-22 2020-11-22 Office Duarte Rincon [facility] 1.2.840.114 [id number] [facility] 12:32:24 15:06:34 [facility] 350.1. 13.10 [facility] 4.2.7.2.[address] [facility] [id number] [facility] Primary & [facility] 2020-11-22 2020-11-22 Outpatient R [facility] [id number] Univers 14:00:00 14:00:00 [facility] 2020-11-22 2020-11-22 Orders Doctor CARRANZA 1.2.840.114 [id number] Univers 00:00:00 00:00:00 Only Unassigned, JEROME 350.1.13.10 ity of [place] HOSPITAL 4.2.7.2.686 Timothy as [phone] [facility] [address] 2020-11-22 2020-11-22 Orders Doctor PANCHO 1.2.840.114 [id number] Univers 00:00:00 00:00:00 Only Unassigned, JEROME 350.1.13.10 ity of [place] HOSPITAL 4.2.7.2.686 Timothy as [id number] [facility] [address] 2020-11-12 2020-11-13 [facility] 1.2.840.114 [id number] 049 Univers 18:10:00 17:10:00 Encounter Bilal Jerome 350.1.13.10 ity of Hospital 4.2.7.2.686 Timothy as [id number] [facility] [address] 2020-11-12 2020-11-13 [facility] Magy Rincon 1.2.840.114 [id number] 049 Univers 18:10:00 17:10:00 Encounter Bilal Jerome 350.1.13.10 ity of Hospital 4.2.7.2.686 Timothy as [id number] [facility] [address] 2020-11-13 2020-11-13 [facility] Magy Rincon 1.2.840.114 [id number] Univers 11:47:00 13:16:00 Bilal Jerome 350.1.13.10 it y of Hospital 4.2.7.2.686 Timothy as [id number] [facility] [address] 2020-11-13 2020-11-13 Surgery SergeyMagy 1.2.840.114 [id number] Univers 11:47:00 13:16:00 Bilal Jerome 350.1.13.10 it y of Hospital 4.2.7.2.686 Timothy as [id number] [facility] [address] 2020-11-13 2020-11-13 [facility] 1.2.990.558 0337 [id number] Univers 00:00:00 00:00:00 Bilal Health 350.1.13.10 it y of Cancer 4.2.7.2.686 [facility] - [id number] [facility] [address] 2020-11-13 2020-11-13 Telephone [facility] 1.2.545.699 1381 [id number] Univers 00:00:00 00:00:00 Bilal Health 350.1.13.10 it y of Cancer 4.2.7.2.686 [facility] [id number] [facility] [address] 2020-11-12 2020-11-12 Outpatient U [facility] SUU [id number] Univers 18:10:00 18:10:00 [facility] 2019-12-07 2019-12-07 Outpatient EL SLE SLE [id number] [facility] 00:00:00 00:00:00 2018-01-16 2018-01-16 Outpatient EL CARMEN [facility] SLE [id number] [facility] 00:00:00 00:00:00 SUZY HENDRICKS 2017-09-01 2017-09-03 Inpatient Gayathri KARSTEN [facility] [id number] [place] [facility] 13:00:00 14:43:00 [facility] 2014-10-13 2014-10-13 Outpatient MHIE MHIE [id number] [facility] 13:30:00 13:30:00 03 [facility] 2014-10-13 2014-10-13 Outpatient MHIE MHIE [id number] [facility] 13:30:00 13:30:00 03 [facility] 2014-10-13 2014-10-13 Outpatient MHIE MHIE [id number] [facility] 13:15:00 13:15:00 02 [facility] 2014-10-13 2014-10-13 Outpatient MHIE MHIE [id number] [facility] 13:15:00 13:15:00 02 Fred 2014-10-01 2014-10-01 Outpatient MHIE MHIE [id number] [facility] 15:30:00 15:30:00 01 reji AndersonFred 2014-10-01 2014-10-01 Outpatient MHIE MHIE [id number] [facility] 15:30:00 15:30:00 reji Fred 2012-01-14 2012-01-17 Inpatient nullFlavo [id number] [facility] 11:28:00 10:57:00 [place] 2012-01-14 2012-01-17 Inpatient nullFlavo [id number] [facility] 11:28:00 10:57:00 r [place] 00 l Fred Results Test Description Test Time Test Comments Results Result Comments Source LACTATE DEHYDROGENASE (LDH) 2022-11-06 12:17:55 Test Item Value Reference Range Interpretation Comme nts LACTATE DEHYDROGENASE (BEAKER) (test 200 U/L 125-220 Specimen slightly hemolyzed code = 635) COMPREHENSIVE METABOLIC [id number] 12:17:15 Test Item Value Reference Range Interpretation Comments TOTAL PROTEIN 6.9 gm/dL 6.0-8.3 Specimen sligh tly (BEAKER) (test hemolyzed code = 770) ALBUMIN (BEAKER) 4.8 g/dL 3.5-5.0 Specimen sl ightly (test code = 1145) hemolyzed ALKALINE 110 U/L 40-150 PHOSPHATASE (BEAKER) (test code = 346) BILIRUBIN TOTAL 0.7 mg/dL 0.2-1.2 Specimen sli ghtly (BEAKER) (test hemolyzed code = 377) SODIUM (BEAKER) 142 meq/L 136-145 (test code = 381) POTASSIUM (BEAKER) 4.6 meq/L 3.5-5.1 Specimen slightly (test code = 379) hemolyzed CHLORIDE (BEAKER) 107 meq/L 98-107 (test code = 382) CO2 (BEAKER) (test 28 meq/L 22-29 code = 355) BLOOD UREA 8 mg/dL 7-21 NITROGEN (BEAKER) (test code = 354) CREATININE 0.91 mg/dL 0.57-1.25 Specimen slight ly (BEAKER) (test hemolyzed code = 358) GLUCOSE RANDOM 107 mg/dL 70-105 H (BEAKER) (test code = 652) CALCIUM (BEAKER) 8.9 mg/dL 8.4-10.2 (test code = 697) AST (SGOT) 25 U/L 5-34 Specimen slight ly (BEAKER) (test hemolyzed code = 353) ALT (SGPT) 33 U/L 6-55 Specimen slight ly (BEAKER) (test hemolyzed code = 347) EGFR (BEAKER) 98 Interpretatio n of eGFR (test code = 1092) mL/min/1.[address] age Description sq m Result G1 Maximus l or high >=90 G2 Mildly decreased 60-89 G3a Mildl y to moderately 45-5 9 G3b Moderately to s everely 30-44 G4 Sever ly decreased 15-29 G5 Kidney failure <15Repo rted eGFR is based on the CKD-EPI 2021 equation t hat does not use a race coefficientEsti mated GFR is not as accur ate as Creatinine [place] in predicting glom erular filtration rate . Estimated GFR is not appl icable for dialysis patien ts CBC W/PLT COUNT & AUTO [id number] 10:11:28 Test Item Value Reference Range Interpretation Comments WHITE BLOOD CELL COUNT (BEAKER) 4.9 K/ L 3.5-10.5 (test code = 775) RED BLOOD CELL COUNT (BEAKER) 4.76 M/ L 4.63-6.08 (test code = 761) HEMOGLOBIN (BEAKER) (test code = 15.1 GM/DL 13.7-17.5 410) HEMATOCRIT (BEAKER) (test code = 43.5 % 40.1-51.0 411) MEAN CORPUSCULAR VOLUME (BEAKER) 91 fL 79-92 (test code = 753) MEAN CORPUSCULAR HEMOGLOBIN 31.7 pg 25.7-32.2 (BEAKER) (test code = 751) MEAN CORPUSCULAR HEMOGLOBIN CONC 34.7 GM/DL 32.3-36.5 (BEAKER) (test code = 752) RED CELL DISTRIBUTION WIDTH 13.4 % 11.6-14.4 (BEAKER) (test code = 412) PLATELET COUNT (BEAKER) (test 144 K/CU MM 150-450 L code = 756) MEAN PLATELET VOLUME (BEAKER) 9.4 fL 9.4-12.4 (test code = 754) NEUTROPHILS RELATIVE PERCENT 63 % (BEAKER) (test code = 429) LYMPHOCYTES RELATIVE PERCENT 24 % (BEAKER) (test code = 430) MONOCYTES RELATIVE PERCENT 9 % (BEAKER) (test code = 431) EOSINOPHILS RELATIVE PERCENT 2 % (BEAKER) (test code = 432) BASOPHILS RELATIVE PERCENT 0 % (BEAKER) (test code = 437) NEUTROPHILS ABSOLUTE COUNT 3.07 K/ L 1.78-5.38 (BEAKER) (test code = 670) LYMPHOCYTES ABSOLUTE COUNT 1.18 K/ L 1.32-3.57 L (BEAKER) (test code = 414) MONOCYTES ABSOLUTE COUNT (BEAKER) 0.46 K/ L 0.30-0.82 (test code = 415) EOSINOPHILS ABSOLUTE COUNT 0.11 K/ L 0.04-0.54 (BEAKER) (test code = 416) BASOPHILS ABSOLUTE COUNT (BEAKER) 0.02 K/ L 0.01-0.08 (test code = 417) IMMATURE GRANULOCYTES-RELATIVE 0.80 % 0.00-1.00 PERCENT (BEAKER) (test code = 2801) COMPREHENSIVE METABOLIC [id number] 12:03:37 Test Item Value Reference Range Interpretation Comments TOTAL PROTEIN 6.8 gm/dL 6.0-8.3 Specimen sligh tly (BEAKER) (test hemolyzed code = 770) ALBUMIN (BEAKER) 4.8 g/dL 3.5-5.0 Specimen sl ightly (test code = 1145) hemolyzed ALKALINE 87 U/L 40-150 PHOSPHATASE (BEAKER) (test code = 346) BILIRUBIN TOTAL 0.9 mg/dL 0.2-1.2 Specimen sli ghtly (BEAKER) (test hemolyzed code = 377) SODIUM (BEAKER) 143 meq/L 136-145 (test code = 381) POTASSIUM (BEAKER) 3.9 meq/L 3.5-5.1 Specimen slightly (test code = 379) hemolyzed CHLORIDE (BEAKER) 107 meq/L 98-107 (test code = 382) CO2 (BEAKER) (test 27 meq/L 22-29 code = 355) BLOOD UREA 11 mg/dL 7-21 NITROGEN (BEAKER) (test code = 354) CREATININE 0.97 mg/dL 0.57-1.25 Specimen slight ly (BEAKER) (test hemolyzed code = 358) GLUCOSE RANDOM 122 mg/dL 70-105 H (BEAKER) (test code = 652) CALCIUM (BEAKER) 8.8 mg/dL 8.4-10.2 (test code = 697) AST (SGOT) 11 U/L 5-34 Specimen slight ly (BEAKER) (test hemolyzed code = 353) ALT (SGPT) 20 U/L 6-55 Specimen slight ly (BEAKER) (test hemolyzed code = 347) EGFR (BEAKER) 91 Interpretatio n of eGFR (test code = 1092) mL/min/1.[address] age Description sq m Result G1 Maximus l or high >=90 G2 Mildly decreased 60-89 G3a Mildl y to moderately 45-5 9 G3b Moderately to s everely 30-44 G4 Severl y decreased 15-29 G5 Kidney failure <15Reported eGF R is based on the CKD-EPI 2020 equation that d oes not use a race coefficientEsti mated GFR is not as accur ate as Creatinine Maria Victoria kristian in predicting glom erular filtration rate . Estimated GFR is not appl icable for dialysis patien ts LACTATE DEHYDROGENASE (LDH)2022-08-01 12:03:26 Test Item Value Reference Range Interpretation Comments LACTATE DEHYDROGENASE 195 U/L 125-220 Specim en slightly (BEAKER) (test code = hemoly zed 635) CBC W/PLT COUNT & AUTO [id number] 11:55:19 Test Item Value Reference Range Interpretation Comments WHITE BLOOD CELL COUNT (BEAKER) 3.7 K/ L 3.5-10.5 (test code = 775) RED BLOOD CELL COUNT (BEAKER) 4.00 M/ L 4.63-6.08 L (test code = 761) HEMOGLOBIN (BEAKER) (test code = 13.4 GM/DL 13.7-17.5 L 410) HEMATOCRIT (BEAKER) (test code = 39.1 % 40.1-51.0 L 411) MEAN CORPUSCULAR VOLUME (BEAKER) 98 fL 79-92 H (test code = 753) MEAN CORPUSCULAR HEMOGLOBIN 33.5 pg 25.7-32.2 H (BEAKER) (test code = 751) MEAN CORPUSCULAR HEMOGLOBIN CONC 34.3 GM/DL 32.3-36.5 (BEAKER) (test code = 752) RED CELL DISTRIBUTION WIDTH 13.3 % 11.6-14.4 (BEAKER) (test code = 412) PLATELET COUNT (BEAKER) (test 150 K/CU MM 150-450 code = 756) MEAN PLATELET VOLUME (BEAKER) 9.8 fL 9.4-12.4 (test code = 754) NEUTROPHILS RELATIVE PERCENT 53 % (BEAKER) (test code = 429) LYMPHOCYTES RELATIVE PERCENT 30 % (BEAKER) (test code = 430) MONOCYTES RELATIVE PERCENT 13 % (BEAKER) (test code = 431) EOSINOPHILS RELATIVE PERCENT 3 % (BEAKER) (test code = 432) BASOPHILS RELATIVE PERCENT 0 % (BEAKER) (test code = 437) NEUTROPHILS ABSOLUTE COUNT 1.95 K/ L 1.78-5.38 (BEAKER) (test code = 670) LYMPHOCYTES ABSOLUTE COUNT 1.11 K/ L 1.32-3.57 L (BEAKER) (test code = 414) MONOCYTES ABSOLUTE COUNT (BEAKER) 0.49 K/ L 0.30-0.82 (test code = 415) EOSINOPHILS ABSOLUTE COUNT 0.12 K/ L 0.04-0.54 (BEAKER) (test code = 416) BASOPHILS ABSOLUTE COUNT (BEAKER) 0.01 K/ L 0.01-0.08 (test code = 417) IMMATURE GRANULOCYTES-RELATIVE 0.30 % 0.00-1.00 PERCENT (BEAKER) (test code = 2801) Prepare RBC, 1 Units, Irradiated, [id number] 16:57:00 Test Item Value Reference Range Interpretation Comments Product name (test code Red Cells AS1 Leukored = 25) Irrad Unit number (test code [id number] = [id number]) Product code (test code [id number] = 3092) Dispense status (test Transfused code = 24) Blood expiration date [id number] (test code = 302) Blood type code (test 6200 code = 308) Blood type (test code = A POSITIVE 1314) Compatibility (test Compatible code = 6400) FOREST (test code = FOREST) Previous comment was ?Please transfuse a single donor platelet at 6am 05/31/20 if?count less than 40k ( line removal?Transfusion date->05/31/22, verified by HIS at 08:12 on 05/31/2022. [facility] [id number] 00:20:00 Test Item Value Reference Range Interpretation Comments Urine culture (test SEE COMMENT Bacteriu kg screen code = 6164199) negative. [facility] [Presence] in Respiratory specimen by ZACKARY with probe [id number] 14:59:02 Test Item Value Reference Range Interpretation Comments SARS-CoV-2 (COVID-19) RNA Not detected [Presence] in Respiratory specimen by ZACKARY with probe detection (test code = 78841-9) Whether patient is employed in a Unknown healthcare setting (test code = 73778-8) Whether the patient has symptoms Unknown related to condition of interest (test code = 38320-6) Whether the patient was Unknown hospitalized for condition of interest (test code = 74785-1) Whether the patient was admitted Unknown to intensive care unit (ICU) for condition of interest (test code = 00255-4) Whether patient resides in a Unknown congregate care setting (test code = 72655-5) status (test code = Unknown 80201-9) Date and time of symptom onset Unknown (test code = 05261-8) [facility] 12 [id number] 06:04:44 Test Item Value Reference Range Interpretation Comments Ventricular rate (test 104 code = 253) Atrial rate (test code 104 = 255) WI interval (test code 162 = 266) QRSD interval (test 86 code = 260) QT interval (test code 336 = 264) QTC interval (test code 441 = 265) P axis 1 (test code = 42 267) QRS axis 1 (test code = 10 268) T wave axis (test code 47 = 270) EKG impression (test Sinus code = 273) tachycardia-Otherwise normal ECG-In automated comparison with ECG of 14-MAR-2022 11:57,-No significant change was found- [facility] ED Preliminary Interpretation - Not an [id number] 18:16:15 Test Item Value Reference Range Interpretation Comments FOREST (test code = FOREST) Jarek Baltazar MD 04/24/2022 9[facility] [place] Interpretation - Not an OrderPerformed by: Jarek Baltazar MDAuthorized by: Jarek Baltazar MD ECG reviewed by ED Physician in the absence of a electric plater: yes Interpretation: Interpretation: abnormal Rate: ECG rate: 104 ECG rate assessment: tachycardic Rhythm: Rhythm: sinus tachycardia QRS: QRS axis: NormalST segments: ST segments: NormalT waves: T waves: normal Comments: No STEMI Lab Interpretation Abnormal (test code = 64120-5) [facility] [id number] 14:11:54 Test Item Value Reference Range Interpretation Comments SARS-CoV-2 (COVID-19) RNA Not detected [Presence] in Respiratory specimen by ZACKARY with probe detection (test code = 17034-3) Whether patient resides in a No congregate care setting (test code = 25416-5) Date and time of symptom onset Unknown (test code = 67918-3) Whether the patient was No hospitalized for condition of interest (test code = 07728-7) Whether the patient was admitted No to intensive care unit (ICU) for condition of interest (test code = 47367-8) Whether patient is employed in a No healthcare setting (test code = 91950-9) Whether the patient has symptoms No related to condition of interest (test code = 57014-6) status (test code = No 16393-8) DEV WHITESARS-CoV-2 (COVID-19) RNA [Presence] in Respiratory specimen by ZACKARY with probe [id number] 14:19:27 Test Item Value Reference Range Interpretation Comments SARS-CoV-2 (COVID-19) RNA Not detected [Presence] in Respiratory specimen by ZACKARY with probe detection (test code = 50035-6) Whether patient is employed in a Unknown healthcare setting (test code = 38698-7) Whether the patient has symptoms Unknown related to condition of interest (test code = 73320-8) Whether the patient was Unknown hospitalized for condition of interest (test code = 89031-7) Whether the patient was admitted Unknown to intensive care unit (ICU) for condition of interest (test code = 38005-2) Whether patient resides in a Unknown congregate care setting (test code = 04074-1) status (test code = Unknown 80249-4) Date and time of symptom onset Unknown (test code = 91237-4) DEV WHITESpirometry, diffusion, lung [id number] 15:32:07 Test Item Value Reference Range Interpretation Comments VC Pre (test code = 4.10 L 4.08-6.18 5374) VC Predicted (test 5.11 code = 5372) VC LLN (test code = 4.08 5373) VC % Pre of Predicted 80.1 % (test code = 5375) TLC Pre (test code = 7.24 L 5.80-8.65 5416) TLC Predicted (test 7.21 code = 5414) TLC LLN (test code = 5.80 5415) TLC % Pre of Predicted 100.4 % (test code = 5417) RV Pre (test code = 3.14 L 1.34-3.18 5402) RV Predicted (test 2.18 code = 5400) RV LLN (test code = 1.34 5401) RV % Pre of Predicted 144.4 % (test code = 5403) RV % TLC Pre (test 43.41 % 20.13-39.61 code = 5409) RV % TLC Predicted 30 (test code = 5407) RV % TLC LLN (test 20 code = 5408) RV % TLC % Pre of 146.4 % Predicted (test code = 5410) R0.5IN Pre (test code 1.35 See_Comment [Auto mated message] = 5540) The system [employer] generated this result transmitted ref erence range: 3.06 - 3 .06 cmH2O*s/L. The reference range was not used to interpr et this result as normal/abnormal . R0.5IN Predicted (test 3.06 code = 5512) R0.5IN LLN (test code 3.06 = 5513) R0.5IN % Pre of 44.2 % Predicted (test code = 5515) FRCpl Pre (test code = 5.32 L 2.51-5.05 5388) FRCpl % Predicted 3.63 (test code = 5386) FRCpl % LLN (test code 2.51 = 5387) FRCpl % Pre of 146.4 % Predicted (test code = 5389) ERV Pre (test code = 2.17 L 0.50-2.55 5381) ERV Predicted (test 1.35 code = 5379) ERV LLN (test code = 0.50 5380) ERV % Pre of Predicted 161.0 % (test code = 5382) IC Pre (test code = 1.93 L 2.60-4.74 5395) IC Predicted (test 3.69 code = 5393) IC LLN (test code = 2.60 5394) IC % Pre of Predicted 52.2 % (test code = 5396) sR0.5IN Pre (test code 7.99 See_Comment [Aut omated message] = 5521) The system [employer] generated this result transmitted ref erence range: 12.00 - 12.00 cmH2O*s. The re ference range was not u sed to interpret this result as normal/abnor mal. sR0.5IN LLN (test code 12.00 = 5520) sR0.5IN Predicted 12.00 (test code = 5519) sR0.5IN % Pre of 66.6 % Predicted (test code = 5522) Raw Pre (test code = 1.60 See_Comment [Autom ated message] 5507) The system [employer] generated this result transmitted ref erence range: 3.06 - 3 .06 cmH2O*s/L. The reference range was not used to interpr et this result as normal/abnormal . Raw Predicted (test 3.06 code = 5505) Raw LLN (test code = 3.06 5506) Raw % Pre of Predicted 52.3 % (test code = 5508) sGaw Predicted (test 0.11 See_Comment [Autom ated message] code = 5528) The system [employer] generated this result transmitted ref erence range: 0.08 - 0 .08 1/(cmH2O*s). Th e reference range was not used to interpr et this result as normal/abnormal . sGaw Predicted (test 0.08 code = 5526) sGaw LLN (test code = 0.08 5527) sGaw % Pre of 126.6 % Predicted (test code = 5529) FEV1 Pre (test code = 3.05 L 2.74-4.46 5348) FEV1 Predicted (test 3.62 code = 5302) FEV1 LLN (test code = 2.74 5347) FEV1 % Pre of 84.2 % Predicted (test code = 5308) FVC Pre (test code = 4.10 L 3.58-5.79 5354) FVC Predicted (test 4.68 code = 5307) FVC LLN (test code = 3.58 5353) FVC % Pre of Predicted 87.6 % (test code = 5355) FEV1/FVC % Pre (test 74.46 % 65.76-87.95 code = 5361) FEV1/FVC % Predicted 78 (test code = 5359) FEV1/FVC % LLN (test 66 code = 5360) FEV1/FVC % Pre of 95.9 % Predicted (test code = 5362) FEF 25-75% Pre (test 2.27 L/s 1.51-5.11 code = 5547) FEF 25-75% Predicted 3.05 (test code = 5546) FEF 25-75% LLN (test 1.51 code = 5545) FEF 25-75% % Pre of 74.6 % Predicted (test code = 5548) PEF Pre (test code = 4.56 L/s 6.98-11.61 5367) PEF Predicted (test 9.30 code = 5310) PEF LLN (test code = 6.98 5366) PEF % Pre of Predicted 49.0 % (test code = 5368) DLCO Pre (test code = 26.96 See_Comment [Auto mated message] 5423) The system [employer] generated this result transmitted ref erence range: 20.85 - 35.88 ml/(min*mmHg). The reference range was not used to interpr et this result as normal/abnormal . DLCO Predicted (test 27.75 code = 5421) DLCO LLN (test code = 20.85 5422) DLCO % Pre of 97.1 % Predicted (test code = 5424) DLCOc Pre (test code = 27.35 See_Comment [Aut omated message] 5430) The system [employer] generated this result transmitted ref erence range: 20.85 - 35.88 ml/(min*mmHg). The reference range was not used to interpr et this result as normal/abnormal . DLCOc Predicted (test 27.75 code = 5428) DLCOc LLN (test code = 20.85 5429) DLCOc % Pre of 98.5 % Predicted (test code = 5431) DL/VA Pre (test code = 4.37 See_Comment [Aut omated message] 5437) The system [employer] generated this result transmitted ref erence range: 3.24 - 5 .38 ml/(min*mmHg*L) . The reference range was not used to interpr et this result as normal/abnormal . DL/VA Predicted (test 4.26 code = 5435) DL/VA LLN (test code = 3.24 5436) DL/VA % Pre of 102.5 % Predicted (test code = 5438) KCOc SB Pre (test code 4.43 See_Comment [Aut omated message] = 5535) The system Me[employer] generated this result transmitted ref erence range: 3.24 - 5 .38 ml/(min*mmHg*L) . The reference range was not used to interpr et this result as normal/abnormal . KCOc SB Predicted 4.26 (test code = 5533) KCOc SB LLN (test code 3.24 = 5534) KCOc SB % Pre of 104.0 % Predicted (test code = 5536) VA SB Pre (test code = 6.17 L 5.30-7.90 5444) VA SB Predicted (test 6.55 code = 5442) VA SB LLN (test code = 5.30 5443) VA SB % Pre of 94.1 % Predicted (test code = 5445) Hb Pre (test code = 14.10 g(Hb)/dL 5540) [facility] [id number] 22:46:42 Test Item Value Reference Range Interpretation Comments Resting HR (test code 93 = 7033655395) Resting BP (test code 132&82 = 4215016081) Peak MET Achieved 1.0 (test code = 1107022591) Protocol Name (test REGADENO code = 0803119766) Time in Exercise 00:01:00 Phase (test code = 5242770689) Max Systolic BP (test 135 code = 8876776939) Max Diastolic BP 77 (test code = 1546161546) Max Heart Rate (test 115 code = 0125747074) Max Predicted Heart 130 Rate (test code = 4211277629) Target HR Formula (Age<38=537,160-(Age-25) (test code = *0.9,Age>91=790)*100% 9314934455) Test Indication (test PRE TRANSPLANT code = 7861028402) Arrhy During Ex (test code = 9759498473) ECG Interp Before EX (test code = 4360957137) ECG Interp During Ex (test code = 8360332502) Ex Summary Comment (test code = 1770926669) Overall HR Response to Exercise (test code = 0706613984) Overall BP Response To Exercise (test code = 7335260274) Reason for Protocol Complete Termination (test code = 3294574220) Stress Test -Waveform interpreted in Impression (test code report associated with = 4525977541) image study. No interpretation is provided as part of this Stress ECG report.-Electronically Signed By Crystal JAMES, [facility] ([id number]), communications editor Ana Sheldon ([id number]) on 03/13/2022 4:46:41 PM [facility] [id number] 08:00:51 Test Item Value Reference Range Interpretation Comments CULTURE (BEAKER) (test No growth in 5 days code = 1095) BLOOD [id number] 08:00:50 Test Item Value Reference Range Interpretation Comments CULTURE (BEAKER) (test No growth in 5 days code = 1095) SARS-COV2/RT-PCR ([facility])2021-12-01 14:28:37 Test Item Value Reference Range Interpretation Comments SARS-COV2/RT-PCR (test Negative Not Detected, Negative, code = 4603252) See external report for linked test SARS-COV-2 PERFORMING LAB [facility] (test code = 8564950) Negative result for this test determines that SARS-CoV-2 RNA was not present in the specimen above the Limit of Detection (LOD). However, Negative results do not preclude SARS-CoV-2 infection and should not be used as the sole basis for treatment or patient management decisions. Negative results must be combined with clinical observations, patient history, and epidemiological information. A false negative result may occur if a specimen is improperly collected, transported or handled. A false negative result should be considered if patient's recent exposures or clinical presentation indicate that COVID-19 (SARS-CoV-2) is likely and diagnostic tests for other causes of illness are negative. Re-testing should be considered in cases of suspected false negatives.The limit of detection for this assay is 800 copies/mL.This SARS CoV-2 test is a real-time RT-PCR test intended for the qualitative detection of nucleic acid from SARS-CoV-2 in a nasopharyngeal swab specimen collected from individuals suspected of COVID-19 by their healthcare provider.This test has not been Food and Drug Administration (FDA) cleared or approved. This is a modified version of an approved Emergency Use Authorization (EUA) and is in the process of review by the FDA. Once authorized by the FDA, the issued EUA will be effective until the declaration that circumstances exist justifying the authorization of the emergency use ofin vitro diagnostic tests for detection and/or diagnosis of COVID-19 is terminated under Section 564(b)(2) of the Act or the EUA is revoked under Section 564(g) of the Act.Fact Sheet for Healthcare Prov iders:https://www.[employer]/sites/default/files/product/documents/Fact_Sheet_HC _Ivixbdrjr_Zird_POBC-AkX-5.pdfFact Sheet for Healthcare Patients:https://www.[employer]/sites/default/files/product/docume nts/Etmk_Zdjor_Ajazfnig_Fngs_DNCD-DzU-3.pdfPerforming Laboratory:[facility], [place] [id number] 07:53:04 Test Item Value Reference Range Interpretation Comments PHOSPHORUS (BEAKER) (test code = 4.2 mg/dL 2.3-4.7 604) [employer] ID - PIAYA LBASIC METABOLIC [id number] 07:53:03 Test Item Value Reference Range Interpretation Comments SODIUM (BEAKER) 141 meq/L 136-145 (test code = 381) POTASSIUM 3.4 meq/L 3.5-5.1 L (BEAKER) (test code = 379) CHLORIDE (BEAKER) 110 meq/L 98-107 H (test code = 382) CO2 (BEAKER) 22 meq/L 22-29 (test code = 355) BLOOD UREA 3 mg/dL 7-21 L NITROGEN (BEAKER) (test code = 354) CREATININE 0.72 mg/dL 0.57-1.25 (BEAKER) (test code = 358) GLUCOSE RANDOM 98 mg/dL 70-105 (BEAKER) (test code = 652) CALCIUM (BEAKER) 8.7 mg/dL 8.4-10.2 (test code = 697) EGFR (BEAKER) 106 Interpretatio n of eGFR (test code = mL/min/1.73 values Stage De scription 1092) sq m Result G1 Maximus l or high >=90 G2 Mildly decreased 60-89 G3a Mildl y to moderately 45-5 9 G3b Moderately to s everely 30-44 G4 Severl y decreased 15-29 G5 Kidney failure <15Reported eGF R is based on the CKD-EPI 202 equation that d oes not use a race coefficientEsti mated GFR is not as accur ate as Creatinine Maria Victoria kristian in predicting glom erular filtration rate . Estimated GFR is not appl icable for dialysis patien ts [employer] ID - WILLY [id number] 07:53:03 Test Item Value Reference Range Interpretation Comments MAGNESIUM (BEAKER) (test code = 1.7 mg/dL 1.6-2.6 627) [employer] ID - WILLY LCBC W/PLT COUNT & AUTO [id number] 07:28:46 Test Item Value Reference Range Interpretation Comments WHITE BLOOD CELL COUNT (BEAKER) 47.2 K/ L 3.5-10.5 H (test code = 775) RED BLOOD CELL COUNT (BEAKER) 2.63 M/ L 4.63-6.08 L (test code = 761) HEMOGLOBIN (BEAKER) (test code = 7.9 GM/DL 13.7-17.5 L 410) HEMATOCRIT (BEAKER) (test code = 24.6 % 40.1-51.0 L 411) MEAN CORPUSCULAR VOLUME (BEAKER) 93.5 fL 79.0-92.2 H (test code = 753) MEAN CORPUSCULAR HEMOGLOBIN 30.0 pg 25.7-32.2 (BEAKER) (test code = 751) MEAN CORPUSCULAR HEMOGLOBIN CONC 32.1 GM/DL 32.3-36.5 L (BEAKER) (test code = 752) RED CELL DISTRIBUTION WIDTH 15.9 % 11.6-14.4 H (BEAKER) (test code = 412) PLATELET COUNT (BEAKER) (test code 57 K/CU MM 150-450 L = 756) MEAN PLATELET VOLUME (BEAKER) 11.5 fL 9.4-12.4 (test code = 754) NUCLEATED RED BLOOD CELLS (BEAKER) 0 /100 WBC 0-0 (test code = 413) (CELLAVISION MANUAL DIFF)2021-12-01 07:28:46 Test Item Value Reference Range Interpretation Comments NEUTROPHILS - REL 60 % (CELLAVISION)(BEAKER) (test code = 2816) LYMPHOCYTES - REL 2 % (CELLAVISION)(BEAKER) (test code = 2817) MONOCYTES - REL 7 % (CELLAVISION)(BEAKER) (test code = 2818) EOSINOPHILS - REL 1 % (CELLAVISION)(BEAKER) (test code = 2819) METAMYELOCYTES - REL 4 % 0-0 H (CELLAVISION)(BEAKER) (test code = 2821) MYELOCYTES - REL 13 % 0-0 H (CELLAVISION)(BEAKER) (test code = 2822) PROMYELOCYTES - REL 7 % 0-0 H (CELLAVSION)(BEAKER) (test code = 2825) BANDS - REL (CELLAVISION)(BEAKER) 6 % 0-10 (test code = 2826) BLASTS - REL 1 % 0-0 H (CELLAVISION)(BEAKER) (test code = 2827) NEUTROPHILS - ABS 28.32 K/ul 1.78-5.38 H (CELLAVISION)(BEAKER) (test code = 2830) LYMPHOCYTES - ABS 0.94 K/ul 1.32-3.57 L (CELLAVISION)(BEAKER) (test code = 2831) MONOCYTES - ABS 3.30 K/uL 0.30-0.82 H (CELLAVISION)(BEAKER) (test code = 2832) EOSINOPHILS - ABS 0.47 K/uL 0.04-0.54 (CELLAVISION)(BEAKER) (test code = 2834) METAMYELOCYTES - ABS 1.89 K/uL 0.00-0.00 H (CELLAVISION)(BEAKER) (test code = 2836) MYELOCYTES-ABS 6.14 K/uL 0.00-0.00 H (CELLAVISION)(BEAKER) (test code = 2837) PROMYELOCYTES - ABS 3.30 K/uL 0.00-0.00 H (CELLAVISION)(BEAKER) (test code = 2838) BANDS - ABS (CELLAVISION)(BEAKER) 2.83 K/uL 0.00-0.80 H (test code = 2840) BLASTS - ABS 0.47 K/uL 0.00-0.00 H (CELLAVISION)(BEAKER) (test code = 2845) TOTAL COUNTED (BEAKER) (test code 100 = 1351) WBC MORPHOLOGY (BEAKER) (test Normal code = 487) PLT MORPHOLOGY (BEAKER) (test Normal code = 486) POLYCHROMATOPHILLIC RBCS(BEAKER) 2+ moderate (test code = 478) ANISOCYTOSIS (BEAKER) (test code 3+ many = 961) MICROCYTES (BEAKER) (test code = 3+ many 965) POIKILOCYTES (BEAKER) (test code 1+ few = 966) ELLIPTOCYTES (BEAKER) (test code 1+ few = 962) ARTIFACT (CELLAVISION)(BEAKER) Present (test code = 3432) PLATELET CONCENTRATION Decreased (CELLAVISION)(BEAKER) (test code = 3438) [employer] ID - [place] comments: Slide comments:CALCIUM, IONIZED 2021-12-01 07:05:12 Test Item Value Reference Range Interpretation Comments CALCIUM IONIZED (BEAKER) (test 1.18 mmol/L 1.12-1.27 code = 698) PH, BLOOD (BEAKER) (test code = 7.38 1810) MR, BRAIN, [id number] 18:38:00S/p C4 MATRIX; assessing tx response Unlisted Reason for Exam - Click Yes and Enter Reason Below->No [facility] CENTERName: RAMU ARMANDO : 1965 Sex: MFINAL REPORT MRI Brain with and without contrast CLINICAL HISTORY: Brain/MANAGEMENT TRAINEE PROGRAM STORES neoplasm, staging Technique: MRI of the brain utilizing axial T1, T2, FLAIR, GRE, DWI, sagittal T1; andpostgadolinium axial, sagittal, and coronal T1- weighted images. Comparisons: 10/19/2021, 08/04/2021 Findings:Right middle cerebellar peduncle, rhonda, midbrain and cerebellar hemisphere T2 FLAIR hyperintensity is diminished with diminished volume and absence of contrast enhancement. No abnormal DWI signal.Comment the rhonda and midbrain Left posterior frontal lobe T2 FLAIR hyperintensity is reduced. Trace linear enhancement noted on axial image 23 appears to be vascular in origin but nonspecific. No abnormal DWI signal. Nonspecific periventricular T2 FLAIR hyperintensities present. No hydrocephalus, acute intracranial hemorrhage or acute infarct. Linear defect, left posterior frontal lobe with overlyingcraniotomy defect may represent sequela of prior biopsy. There is scalp nodular enhancing tissue within the robbin hole craniotomy measuring 1.4 cm possibly granulation tissue. Orbits and globes are unremarkable. Mild paranasal sinus mucosal thickening. Mastoid air cells are unremarkable. Calvarium is stable. IMPRESSION:Right cerebellar brainstem volume loss with diminished T2 FLAIR hyperintensity and absent contrast enhancement suggests posttreatment changes without residual tumor. Left posterior frontal lobe diminished T2 hyperintensity and volume with nonspecific trace linear enhancement likely posttreatment effect but continued imaging surveillance recommended. Signed: Joe Arechiga MDReport Verified Date/Time: 11/30/2021 18:38:28 (CELLAVISION MANUAL DIFF)2021-11-30 07:46:14 Test Item Value Reference Range Interpretation Comments NEUTROPHILS - REL 54 % (CELLAVISION)(BEAKER) (test code = 2816) LYMPHOCYTES - REL 5 % (CELLAVISION)(BEAKER) (test code = 2817) MONOCYTES - REL 5 % (CELLAVISION)(BEAKER) (test code = 2818) BASOPHILS - REL 1 % (CELLAVISION)(BEAKER) (test code = 2820) METAMYELOCYTES - REL 4 % 0-0 H (CELLAVISION)(BEAKER) (test code = 2821) MYELOCYTES - REL 8 % 0-0 H (CELLAVISION)(BEAKER) (test code = 2822) PROMYELOCYTES - REL 11 % 0-0 H (CELLAVSION)(BEAKER) (test code = 2825) BANDS - REL (CELLAVISION)(BEAKER) 8 % 0-10 (test code = 2826) BLASTS - REL (CELLAVISION)(BEAKER) 3 % 0-0 H (test code = 2827) NEUTROPHILS - ABS 21.06 K/ul 1.78-5.38 H (CELLAVISION)(BEAKER) (test code = 2830) LYMPHOCYTES - ABS 1.95 K/ul 1.32-3.57 (CELLAVISION)(BEAKER) (test code = 2831) MONOCYTES - ABS 1.95 K/uL 0.30-0.82 H (CELLAVISION)(BEAKER) (test code = 2832) BASOPHILS - ABS 0.39 K/uL 0.01-0.08 H (CELLAVISION)(BEAKER) (test code = 2835) METAMYELOCYTES - ABS 1.56 K/uL 0.00-0.00 H (CELLAVISION)(BEAKER) (test code = 2836) MYELOCYTES-ABS 3.12 K/uL 0.00-0.00 H (CELLAVISION)(BEAKER) (test code = 2837) PROMYELOCYTES - ABS 4.29 K/uL 0.00-0.00 H (CELLAVISION)(BEAKER) (test code = 2838) BANDS - ABS (CELLAVISION)(BEAKER) 3.12 K/uL 0.00-0.80 H (test code = 2840) BLASTS - ABS (CELLAVISION)(BEAKER) 1.17 K/uL 0.00-0.00 H (test code = 2845) TOTAL COUNTED (BEAKER) (test code 100 = 1351) GIANT PLATELETS (BEAKER) (test Present code = 313) DOHLE BODIES (BEAKER) (test code = Present 359) TOXIC GRANULATION (BEAKER) (test Present code = 771) POLYCHROMATOPHILLIC RBCS(BEAKER) 3+ many (test code = 478) ANISOCYTOSIS (BEAKER) (test code = 3+ many 961) MICROCYTES (BEAKER) (test code = 3+ many 965) POIKILOCYTES (BEAKER) (test code = 1+ few 966) SPHEROCYTES (BEAKER) (test code = 1+ few 768) ELLIPTOCYTES (BEAKER) (test code = 1+ few 962) ARTIFACT (CELLAVISION)(BEAKER) Present (test code = 3432) PLATELET CONCENTRATION Decreased (CELLAVISION)(BEAKER) (test code = 3438) [employer] ID - [id number] ID - [place] lyudmilaDayna comments: Slide comments:CBC W/PLT COUNT & AUTO [id number] 07:46:13 Test Item Value Reference Range Interpretation Comments WHITE BLOOD CELL COUNT (BEAKER) 39.0 K/ L 3.5-10.5 H (test code = 775) RED BLOOD CELL COUNT (BEAKER) 2.47 M/ L 4.63-6.08 L (test code = 761) HEMOGLOBIN (BEAKER) (test code = 7.6 GM/DL 13.7-17.5 L 410) HEMATOCRIT (BEAKER) (test code = 22.8 % 40.1-51.0 L 411) MEAN CORPUSCULAR VOLUME (BEAKER) 92.3 fL 79.0-92.2 H (test code = 753) MEAN CORPUSCULAR HEMOGLOBIN 30.8 pg 25.7-32.2 (BEAKER) (test code = 751) MEAN CORPUSCULAR HEMOGLOBIN CONC 33.3 GM/DL 32.3-36.5 (BEAKER) (test code = 752) RED CELL DISTRIBUTION WIDTH 15.4 % 11.6-14.4 H (BEAKER) (test code = 412) PLATELET COUNT (BEAKER) (test code 39 K/CU MM 150-450 L = 756) MEAN PLATELET VOLUME (BEAKER) 12.3 fL 9.4-12.4 (test code = 754) NUCLEATED RED BLOOD CELLS (BEAKER) 0 /100 WBC 0-0 (test code = 413) BASIC METABOLIC [id number] 06:33:46 Test Item Value Reference Range Interpretation Comments SODIUM (BEAKER) 141 meq/L 136-145 (test code = 381) POTASSIUM 3.5 meq/L 3.5-5.1 (BEAKER) (test code = 379) CHLORIDE (BEAKER) 110 meq/L 98-107 H (test code = 382) CO2 (BEAKER) 23 meq/L 22-29 (test code = 355) BLOOD UREA 3 mg/dL 7-21 L NITROGEN (BEAKER) (test code = 354) CREATININE 0.72 mg/dL 0.57-1.25 (BEAKER) (test code = 358) GLUCOSE RANDOM 99 mg/dL 70-105 (BEAKER) (test code = 652) CALCIUM (BEAKER) 8.6 mg/dL 8.4-10.2 (test code = 697) EGFR (BEAKER) 106 Interpretatio n of eGFR (test code = mL/min/1.73 values Stage De scription 1092) sq m Result G1 Maximus l or high >=90 G2 Mildly decreased 60-89 G3a Mildl y to moderately 45-5 9 G3b Moderately to s everely 30-44 G4 Severl y decreased 15-29 G5 Kidney failure <15Reported eGF R is based on the CKD-EPI 2020 equation that d oes not use a race coefficientEsti mated GFR is not as accur ate as Creatinine Maria Victoria kristian in predicting glom erular filtration rate . Estimated GFR is not appl icable for dialysis patien ts [employer] ID - THOMAS [id number] 06:33:46 Test Item Value Reference Range Interpretation Comments MAGNESIUM (BEAKER) (test code = 1.7 mg/dL 1.6-2.6 627) [employer] ID - THOMAS [id number] 06:33:46 Test Item Value Reference Range Interpretation Comments PHOSPHORUS (BEAKER) (test code = 3.7 mg/dL 2.3-4.7 604) [employer] ID - THOMAS MCALCIUM, [id number] 05:59:11 Test Item Value Reference Range Interpretation Comments CALCIUM IONIZED (BEAKER) (test 1.14 mmol/L 1.12-1.27 code = 698) PH, BLOOD (BEAKER) (test code = 7.40 1810) (CELLAVISION MANUAL DIFF)2021-11-29 13:44:52 Test Item Value Reference Range Interpretation Comments NEUTROPHILS - REL 34 % (CELLAVISION)(BEAKER) (test code = 2816) LYMPHOCYTES - REL 14 % (CELLAVISION)(BEAKER) (test code = 2817) MONOCYTES - REL 8 % (CELLAVISION)(BEAKER) (test code = 2818) METAMYELOCYTES - REL 16 % 0-0 H (CELLAVISION)(BEAKER) (test code = 2821) MYELOCYTES - REL 11 % 0-0 H (CELLAVISION)(BEAKER) (test code = 2822) PROMYELOCYTES - REL 2 % 0-0 H (CELLAVSION)(BEAKER) (test code = 2825) BANDS - REL (CELLAVISION)(BEAKER) 9 % 0-10 (test code = 2826) BLASTS - REL (CELLAVISION)(BEAKER) 5 % 0-0 H (test code = 2827) NEUTROPHILS - ABS 9.59 K/ul 1.78-5.38 H (CELLAVISION)(BEAKER) (test code = 2830) LYMPHOCYTES - ABS 3.95 K/ul 1.32-3.57 H (CELLAVISION)(BEAKER) (test code = 2831) MONOCYTES - ABS 2.26 K/uL 0.30-0.82 H (CELLAVISION)(BEAKER) (test code = 2832) METAMYELOCYTES - ABS 4.51 K/uL 0.00-0.00 H (CELLAVISION)(BEAKER) (test code = 2836) MYELOCYTES-ABS 3.10 K/uL 0.00-0.00 H (CELLAVISION)(BEAKER) (test code = 2837) PROMYELOCYTES - ABS 0.56 K/uL 0.00-0.00 H (CELLAVISION)(BEAKER) (test code = 2838) BANDS - ABS (CELLAVISION)(BEAKER) 2.54 K/uL 0.00-0.80 H (test code = 2840) BLASTS - ABS (CELLAVISION)(BEAKER) 1.41 K/uL 0.00-0.00 H (test code = 2845) TOTAL COUNTED (BEAKER) (test code = 100 1351) PLT MORPHOLOGY (BEAKER) (test code Normal = 486) TOXIC GRANULATION (BEAKER) (test Present code = 771) POLYCHROMATOPHILLIC RBCS(BEAKER) 1+ few (test code = 478) ANISOCYTOSIS (BEAKER) (test code = 3+ many 961) MICROCYTES (BEAKER) (test code = 3+ many 965) POIKILOCYTES (BEAKER) (test code = 1+ few 966) OVALOCYTES (BEAKER) (test code = 1+ few 477) ARTIFACT (CELLAVISION)(BEAKER) Present (test code = 3432) PLATELET CONCENTRATION Decreased (CELLAVISION)(BEAKER) (test code = 3438) [employer] ID - [id number] ID - Magda Schmidt comments: Slide comments: CBC W/PLT COUNT & AUTO [id number] 13:44:51 Test Item Value Reference Range Interpretation Comments WHITE BLOOD CELL COUNT (BEAKER) 28.2 K/ L 3.5-10.5 H (test code = 775) RED BLOOD CELL COUNT (BEAKER) 2.69 M/ L 4.63-6.08 L (test code = 761) HEMOGLOBIN (BEAKER) (test code = 8.2 GM/DL 13.7-17.5 L 410) HEMATOCRIT (BEAKER) (test code = 24.8 % 40.1-51.0 L 411) MEAN CORPUSCULAR VOLUME (BEAKER) 92.2 fL 79.0-92.2 (test code = 753) MEAN CORPUSCULAR HEMOGLOBIN 30.5 pg 25.7-32.2 (BEAKER) (test code = 751) MEAN CORPUSCULAR HEMOGLOBIN CONC 33.1 GM/DL 32.3-36.5 (BEAKER) (test code = 752) RED CELL DISTRIBUTION WIDTH 15.0 % 11.6-14.4 H (BEAKER) (test code = 412) PLATELET COUNT (BEAKER) (test 36 K/CU MM 150-450 L B# [id number] code = 756) MEAN PLATELET VOLUME (BEAKER) 12.0 fL 9.4-12.4 (test code = 754) NUCLEATED RED BLOOD CELLS 0 /100 WBC 0-0 (BEAKER) (test code = 413) BASIC METABOLIC [id number] 05:24:12 Test Item Value Reference Range Interpretation Comments SODIUM (BEAKER) 139 meq/L 136-145 (test code = 381) POTASSIUM 3.4 meq/L 3.5-5.1 L (BEAKER) (test code = 379) CHLORIDE (BEAKER) 110 meq/L 98-107 H (test code = 382) CO2 (BEAKER) 22 meq/L 22-29 (test code = 355) BLOOD UREA 4 mg/dL 7-21 L NITROGEN (BEAKER) (test code = 354) CREATININE 0.74 mg/dL 0.57-1.25 (BEAKER) (test code = 358) GLUCOSE RANDOM 97 mg/dL 70-105 (BEAKER) (test code = 652) CALCIUM (BEAKER) 8.6 mg/dL 8.4-10.2 (test code = 697) EGFR (BEAKER) 105 Interpretatio n of eGFR (test code = mL/min/1.73 values Stage De scription 1092) sq m Result G1 Maximus l or high >=90 G2 Mildly decreased 60-89 G3a Mildl y to moderately 45-5 9 G3b Moderately to s everely 30-44 G4 Severl y decreased 15-29 G5 Kidne y failure <15Reported eGF R is based on the CKD-EPI 2020 equation that d oes not use a race coefficientEsti mated GFR is not as accur ate as Creatinine Maria Victoria townsend in predicting glom erular filtration rate . Estimated GFR is not appl icable for dialysis patien ts [employer] ID - SHU WVANCOMYCIN LEVEL, [id number] 21:02:19 Test Item Value Reference Range Interpretation Comments VANCOMYCIN TROUGH (BEAKER) (test 12.2 ug/mL 10.0-20.0 code = 522) [employer] ID - BSRAD, CHEST, 1 VIEW, NON [id number] 13:53:00Reason for exam:- >SOBShould this be performed at the bedside?->Yes [facility] 1965 Sex: MFINAL REPORT RAD, CHEST, 1 VIEW, NON DEPT INDICATION: SOB COMPARISON: Prior day's exam TECHNIQUE: Portable frontal view of the chest. FINDINGS: Support Lines and Devices: Stable. Lungs and pleura: Unchanged airspace and pleural opacities. No pneumothorax identified. Heart and mediastinum: Stable contours. Stable surgical changes. Additional findings: Mild spondylosis and facet arthropathy are present within the spine. IMPRESSION: No acute cardiopulmonary abnormality. Signed: Eros Dye Verified Date/Time: 11/28/2021 13:53:44 Reading Location: [address]Reading [address] (CELLAVISION MANUAL DIFF)2021-11-28 07:31:03 Test Item Value Reference Range Interpretation Comments NEUTROPHILS - REL 7 % (CELLAVISION)(BEAKER) (test code = 2816) LYMPHOCYTES - REL 26 % (CELLAVISION)(BEAKER) (test code = 2817) MONOCYTES - REL 31 % (CELLAVISION)(BEAKER) (test code = 2818) EOSINOPHILS - REL 1 % (CELLAVISION)(BEAKER) (test code = 2819) BASOPHILS - REL 7 % (CELLAVISION)(BEAKER) (test code = 2820) METAMYELOCYTES - REL 2 % 0-0 H (CELLAVISION)(BEAKER) (test code = 2821) MYELOCYTES - REL 6 % 0-0 H (CELLAVISION)(BEAKER) (test code = 2822) PROMYELOCYTES - REL 9 % 0-0 H (CELLAVSION)(BEAKER) (test code = 2825) BANDS - REL (CELLAVISION)(BEAKER) 5 % 0-10 (test code = 2826) BLASTS - REL 6 % 0-0 H (CELLAVISION)(BEAKER) (test code = 2827) NEUTROPHILS - ABS 0.57 K/ul 1.78-5.38 L (CELLAVISION)(BEAKER) (test code = 2830) LYMPHOCYTES - ABS 2.13 K/ul 1.32-3.57 (CELLAVISION)(BEAKER) (test code = 2831) MONOCYTES - ABS 2.54 K/uL 0.30-0.82 H (CELLAVISION)(BEAKER) (test code = 2832) EOSINOPHILS - ABS 0.08 K/uL 0.04-0.54 (CELLAVISION)(BEAKER) (test code = 2834) BASOPHILS - ABS 0.57 K/uL 0.01-0.08 H (CELLAVISION)(BEAKER) (test code = 2835) METAMYELOCYTES - ABS 0.16 K/uL 0.00-0.00 H (CELLAVISION)(BEAKER) (test code = 2836) MYELOCYTES-ABS 0.49 K/uL 0.00-0.00 H (CELLAVISION)(BEAKER) (test code = 2837) PROMYELOCYTES - ABS 0.74 K/uL 0.00-0.00 H (CELLAVISION)(BEAKER) (test code = 2838) BANDS - ABS (CELLAVISION)(BEAKER) 0.41 K/uL 0.00-0.80 (test code = 2840) BLASTS - ABS 0.49 K/uL 0.00-0.00 H (CELLAVISION)(BEAKER) (test code = 2845) TOTAL COUNTED (BEAKER) (test code 100 = 1351) WBC MORPHOLOGY (BEAKER) (test Normal code = 487) GIANT PLATELETS (BEAKER) (test Present code = 313) POLYCHROMATOPHILLIC RBCS(BEAKER) 2+ moderate (test code = 478) ANISOCYTOSIS (BEAKER) (test code 3+ many = 961) MICROCYTES (BEAKER) (test code = 3+ many 965) POIKILOCYTES (BEAKER) (test code 1+ few = 966) ELLIPTOCYTES (BEAKER) (test code 1+ few = 962) ARTIFACT (CELLAVISION)(BEAKER) Present (test code = 3432) PLATELET CONCENTRATION Decreased (CELLAVISION)(BEAKER) (test code = 3438) [employer] ID - [id number] ID - santa Beaul[place] comments: Slide comments:CBC W/PLT COUNT & AUTO [id number] 07:31:02 Test Item Value Reference Range Interpretation Comments WHITE BLOOD CELL COUNT (BEAKER) 8.2 K/ L 3.5-10.5 (test code = 775) RED BLOOD CELL COUNT (BEAKER) 2.37 M/ L 4.63-6.08 L (test code = 761) HEMOGLOBIN (BEAKER) (test code = 7.4 GM/DL 13.7-17.5 L 410) HEMATOCRIT (BEAKER) (test code = 21.1 % 40.1-51.0 L 411) MEAN CORPUSCULAR VOLUME (BEAKER) 89.0 fL 79.0-92.2 (test code = 753) MEAN CORPUSCULAR HEMOGLOBIN 31.2 pg 25.7-32.2 (BEAKER) (test code = 751) MEAN CORPUSCULAR HEMOGLOBIN CONC 35.1 GM/DL 32.3-36.5 (BEAKER) (test code = 752) RED CELL DISTRIBUTION WIDTH 14.6 % 11.6-14.4 H (BEAKER) (test code = 412) PLATELET COUNT (BEAKER) (test code 21 K/CU MM 150-450 L = 756) MEAN PLATELET VOLUME (BEAKER) 11.3 fL 9.4-12.4 (test code = 754) NUCLEATED RED BLOOD CELLS (BEAKER) 0 /100 WBC 0-0 (test code = 413) [id number] 09:09:21 Test Item Value Reference Range Interpretation Comments PROCALCITONIN (BEAKER) (test code 0.06 ng/mL <0.05 H = 3036) SEPSIS RISK (ng/mL)Low: 0.05-0.50Intermediate: 0.51-2.00High: >=2.01 (CELLAVISION MANUAL DIFF)2021-11-27 08:21:53 Test Item Value Reference Range Interpretation Comments NEUTROPHILS - REL 3 % (CELLAVISION)(BEAKER) (test code = 2816) LYMPHOCYTES - REL 71 % (CELLAVISION)(BEAKER) (test code = 2817) MONOCYTES - REL 10 % (CELLAVISION)(BEAKER) (test code = 2818) EOSINOPHILS - REL 1 % (CELLAVISION)(BEAKER) (test code = 2819) BASOPHILS - REL 5 % (CELLAVISION)(BEAKER) (test code = 2820) MYELOCYTES - REL 2 % 0-0 H (CELLAVISION)(BEAKER) (test code = 2822) PROMYELOCYTES - REL 2 % 0-0 H (CELLAVSION)(BEAKER) (test code = 2825) BLASTS - REL 5 % 0-0 H (CELLAVISION)(BEAKER) (test code = 2827) ATYPICAL LYMPHOCYTES - REL 1 % 0-0 H (CELLAVISION)(BEAKER) (test code = 2829) NEUTROPHILS - ABS 0.06 K/ul 1.78-5.38 L (CELLAVISION)(BEAKER) (test code = 2830) LYMPHOCYTES - ABS 1.42 K/ul 1.32-3.57 (CELLAVISION)(BEAKER) (test code = 2831) MONOCYTES - ABS 0.20 K/uL 0.30-0.82 L (CELLAVISION)(BEAKER) (test code = 2832) EOSINOPHILS - ABS 0.02 K/uL 0.04-0.54 L (CELLAVISION)(BEAKER) (test code = 2834) BASOPHILS - ABS 0.10 K/uL 0.01-0.08 H (CELLAVISION)(BEAKER) (test code = 2835) MYELOCYTES-ABS 0.04 K/uL 0.00-0.00 H (CELLAVISION)(BEAKER) (test code = 2837) PROMYELOCYTES - ABS 0.04 K/uL 0.00-0.00 H (CELLAVISION)(BEAKER) (test code = 2838) BLASTS - ABS 0.10 K/uL 0.00-0.00 H (CELLAVISION)(BEAKER) (test code = 2845) ATYPICAL LYMPHOCYTES - ABS 0.02 K/uL 0.00-0.00 H (CELLAVISION)(BEAKER) (test code = 2858) TOTAL COUNTED (BEAKER) (test code 100 = 1351) PLT MORPHOLOGY (BEAKER) (test Normal code = 486) TOXIC GRANULATION (BEAKER) (test Present code = 771) ANISOCYTOSIS (BEAKER) (test code 2+ moderate = 961) MICROCYTES (BEAKER) (test code = 2+ moderate 965) POIKILOCYTES (BEAKER) (test code 1+ few = 966) OVALOCYTES (BEAKER) (test code = 1+ few 477) TEAR DROP CELLS (BEAKER) (test 1+ few code = 481) ARTIFACT (CELLAVISION)(BEAKER) Present (test code = 3432) PLATELET CONCENTRATION Decreased (CELLAVISION)(BEAKER) (test code = 3438) [employer] ID - [id number] ID - Magda Roxana comments: Slide comments: CBC W/PLT COUNT & AUTO [id number] 08:21:44 Test Item Value Reference Range Interpretation Comments WHITE BLOOD CELL COUNT 2.0 K/ L 3.5-10.5 L (BEAKER) (test code = 775) RED BLOOD CELL COUNT 2.41 M/ L 4.63-6.08 L (BEAKER) (test code = 761) HEMOGLOBIN (BEAKER) 7.3 GM/DL 13.7-17.5 L (test code = 410) HEMATOCRIT (BEAKER) 21.6 % 40.1-51.0 L (test code = 411) MEAN CORPUSCULAR VOLUME 89.6 fL 79.0-92.2 (BEAKER) (test code = 753) MEAN CORPUSCULAR 30.3 pg 25.7-32.2 HEMOGLOBIN (BEAKER) (test code = 751) MEAN CORPUSCULAR 33.8 GM/DL 32.3-36.5 HEMOGLOBIN CONC (BEAKER) (test code = 752) RED CELL DISTRIBUTION 14.4 % 11.6-14.4 WIDTH (BEAKER) (test code = 412) PLATELET COUNT (BEAKER) 7 K/CU MM 150-450 LL (test code = 756) MEAN PLATELET VOLUME Unable to report due (BEAKER) (test code = to abn ormal Platelet 754) population distribution. NUCLEATED RED BLOOD 0 /100 WBC 0-0 CELLS (BEAKER) (test code = 413) HEPATIC FUNCTION [id number] 08:08:44 Test Item Value Reference Range Interpretation Comments TOTAL PROTEIN (BEAKER) (test code = 5.7 gm/dL 6.0-8.3 L 770) ALBUMIN (BEAKER) (test code = 1145) 3.7 g/dL 3.5-5.0 BILIRUBIN TOTAL (BEAKER) (test code 0.7 mg/dL 0.2-1.2 = 377) BILIRUBIN DIRECT (BEAKER) (test 0.3 mg/dL 0.1-0.5 code = 706) ALKALINE PHOSPHATASE (BEAKER) (test 101 U/L 40-150 code = 346) AST (SGOT) (BEAKER) (test code = 13 U/L 5-34 353) ALT (SGPT) (BEAKER) (test code = 20 U/L 6-55 347) [employer] AYDEN SCALESASIC METABOLIC [id number] 08:08:39 Test Item Value Reference Range Interpretation Comments SODIUM (BEAKER) 138 meq/L 136-145 (test code = 381) POTASSIUM 3.2 meq/L 3.5-5.1 L (BEAKER) (test code = 379) CHLORIDE (BEAKER) 108 meq/L 98-107 H (test code = 382) CO2 (BEAKER) 21 meq/L 22-29 L (test code = 355) BLOOD UREA 8 mg/dL 7-21 NITROGEN (BEAKER) (test code = 354) CREATININE 0.73 mg/dL 0.57-1.25 (BEAKER) (test code = 358) GLUCOSE RANDOM 115 mg/dL 70-105 H (BEAKER) (test code = 652) CALCIUM (BEAKER) 9.2 mg/dL 8.4-10.2 (test code = 697) EGFR (BEAKER) 105 Interpretatio n of eGFR (test code = mL/min/1.73 values Stage De scription 1092) sq m Result G1 Maximus l or high >=90 G2 Mildly decreased 60-89 G3a Mildl y to moderately 45-5 9 G3b Moderately to s everely 30-44 G4 Severl y decreased 15-29 G5 Kidney failure <15Reported eGF R is based on the CKD-EPI 2020 equation that d oes not use a race coefficientEsti mated GFR is not as accur ate as Creatinine Maria Victoria kristian in predicting glom erular filtration rate . Estimated GFR is not appl icable for dialysis patien ts [employer] AYDEN AGUILERA LLACTIC ACID, [id number] 08:00:18 Test Item Value Reference Range Interpretation Comments LACTATE BLOOD VENOUS (2) (BEAKER) 2.07 mmol/L 0.50-2.20 (test code = 2872) [employer] ID - WILLY LRAD, CHEST, 1 VIEW, NON [id number] 07:04:00Reason for exam:->r/o pnaShould this be performed at the bedside?->Yes [facility] : 1965 Sex: MFINAL REPORT CLINICAL HISTORY: r/o pna TECHNIQUE: 1 view of the chest. COMPARISON: 11/15/2021 IMPRESSION: The right PICC line has been removed. There is new patchy right basilar linear opacity which could represent developing pneumonia given the history or alternatively atelectasis. There are no significant effusions. The cardiomediastinal silhouette is unchanged with a loop recorder. Signed: Krzysztof Doran MDReport Verified Date/Time: 11/27/2021 07:04:34 PROTHROMBIN [id number] 04:23:33 Test Item Value Reference Range Interpretation Comments PROTIME (BEAKER) 15.6 seconds 11.9-14.2 H (test code = 759) INR (BEAKER) (test 1.32 See_Comment [Automat ed message] code = 370) The system [employer] generated this result transmitted ref erence range: <=5.90. The reference range was not used to int erpret this result as normal/abnormal . RECOMMENDED COUMADIN/WARFARIN INR THERAPY RANGESSTANDARD DOSE: 2.0 - 3.0 Includes: PROPHYLAXIS for venous thrombosis, systemic embolization; TREATMENT for venous thrombosis and/or pulmonary embolus.HIGH RISK: Target INR is 2.5-3.5 for patients with mechanical heart valves.BASIC METABOLIC [id number] 08:36:31 Test Item Value Reference Range Interpretation Comments SODIUM (BEAKER) 142 meq/L 136-145 (test code = 381) POTASSIUM 3.4 meq/L 3.5-5.1 L (BEAKER) (test code = 379) CHLORIDE (BEAKER) 107 meq/L 98-107 (test code = 382) CO2 (BEAKER) 29 meq/L 22-29 (test code = 355) BLOOD UREA 9 mg/dL 7-21 NITROGEN (BEAKER) (test code = 354) CREATININE 0.59 mg/dL 0.57-1.25 (BEAKER) (test code = 358) GLUCOSE RANDOM 100 mg/dL 70-105 (BEAKER) (test code = 652) CALCIUM (BEAKER) 8.2 mg/dL 8.4-10.2 L (test code = 697) EGFR (BEAKER) 111 Interpretatio n of eGFR (test code = mL/min/1.73 values Stage De scription 1092) sq m Result G1 Maximus l or high >=90 G2 Mildly decreased 60-89 G3a Mildl y to moderately 45-5 9 G3b Moderately to s everely 30-44 G4 Severl y decreased 15-29 G5 Kidney failure <15Reported eGF R is based on the CKD-EPI 2020 equation that d oes not use a race coefficientEsti mated GFR is not as accur ate as Creatinine Maria Victoria kristian in predicting glom erular filtration rate . Estimated GFR is not appl icable for dialysis patien ts [employer] ID - PIAYA LMETHOTREXATE [id number] 07:42:05 Test Item Value Reference Range Interpretation Comments METHOTREXATE LEVEL 0.08 uMol/L Test perf ormed at (BEAKER) (test code = [facility] 733) Center METHOTREXATE RESULT INTERPRETATION LOW DOSE: 0.50 - 1.00HIGH DOSE: 24hrs: 5.00 or Less 48hrs: 0.50 or Less 72hrs: 0.10 or LessPH, [id number] 07:33:20 Test Item Value Reference Range Interpretation Comments [facility] (test code = 467) 8.5 5.0-8.0 H [employer] ID - [auto]METHOTREXATE [id number] 07:31:41 Test Item Value Reference Range Interpretation Comments METHOTREXATE LEVEL 0.19 uMol/L [facility] (test code = [address] METHOTREXATE RESULT INTERPRETATION LOW DOSE: 0.50 - 1.00HIGH DOSE: 24hrs: 5.00 or Less 48hrs: 0.50 or Less 72hrs: 0.10 or LessMETHOTREXATE [id number] 07:24:06 Test Item Value Reference Range Interpretation Comments METHOTREXATE LEVEL 0.59 Test perf ormed at [facility] (test code = 733) [facility] METHOTREXATE RESULT INTERPRETATION LOW DOSE: 0.50 - 1.00HIGH DOSE: 24hrs: 5.00 or Less 48hrs: 0.50 or Less 72hrs: 0.10 or LessCBC W/PLT COUNT & AUTO [id number] 06:23:16 Test Item Value Reference Range Interpretation Comments WHITE BLOOD CELL COUNT (BEAKER) 3.9 K/ L 3.5-10.5 (test code = 775) RED BLOOD CELL COUNT (BEAKER) 2.66 M/ L 4.63-6.08 L (test code = 761) HEMOGLOBIN (BEAKER) (test code = 8.1 GM/DL 13.7-17.5 L 410) HEMATOCRIT (BEAKER) (test code = 25.3 % 40.1-51.0 L 411) MEAN CORPUSCULAR VOLUME (BEAKER) 95.1 fL 79.0-92.2 H (test code = 753) MEAN CORPUSCULAR HEMOGLOBIN 30.5 pg 25.7-32.2 (BEAKER) (test code = 751) MEAN CORPUSCULAR HEMOGLOBIN CONC 32.0 GM/DL 32.3-36.5 L (BEAKER) (test code = 752) RED CELL DISTRIBUTION WIDTH 17.4 % 11.6-14.4 H (BEAKER) (test code = 412) PLATELET COUNT (BEAKER) (test 176 K/CU MM 150-450 code = 756) MEAN PLATELET VOLUME (BEAKER) 10.4 fL 9.4-12.4 (test code = 754) NUCLEATED RED BLOOD CELLS 0 /100 WBC 0-0 (BEAKER) (test code = 413) NEUTROPHILS RELATIVE PERCENT 77 % (BEAKER) (test code = 429) LYMPHOCYTES RELATIVE PERCENT 11 % (BEAKER) (test code = 430) MONOCYTES RELATIVE PERCENT 9 % (BEAKER) (test code = 431) EOSINOPHILS RELATIVE PERCENT 0 % (BEAKER) (test code = 432) BASOPHILS RELATIVE PERCENT 0 % (BEAKER) (test code = 437) NEUTROPHILS ABSOLUTE COUNT 3.02 K/ L 1.78-5.38 (BEAKER) (test code = 670) LYMPHOCYTES ABSOLUTE COUNT 0.41 K/ L 1.32-3.57 L (BEAKER) (test code = 414) MONOCYTES ABSOLUTE COUNT (BEAKER) 0.33 K/ L 0.30-0.82 (test code = 415) EOSINOPHILS ABSOLUTE COUNT 0.01 K/ L 0.04-0.54 L (BEAKER) (test code = 416) BASOPHILS ABSOLUTE COUNT (BEAKER) 0.01 K/ L 0.01-0.08 (test code = 417) IMMATURE GRANULOCYTES-RELATIVE 3 % 0-1 H PERCENT (BEAKER) (test code = 2801) PH, [id number] 08:15:47 Test Item Value Reference Range Interpretation Comments PH UA (BEAKER) (test code = 467) 7.5 5.0-8.0 [employer] ID - [auto]COMPREHENSIVE METABOLIC [id number] 07:26:23 Test Item Value Reference Range Interpretation Comments TOTAL PROTEIN 5.8 gm/dL 6.0-8.3 L (BEAKER) (test code = 770) ALBUMIN (BEAKER) 3.6 g/dL 3.5-5.0 (test code = 1145) ALKALINE 79 U/L 40-150 PHOSPHATASE (BEAKER) (test code = 346) BILIRUBIN TOTAL 0.6 mg/dL 0.2-1.2 (BEAKER) (test code = 377) SODIUM (BEAKER) 141 meq/L 136-145 (test code = 381) POTASSIUM (BEAKER) 3.7 meq/L 3.5-5.1 (test code = 379) CHLORIDE (BEAKER) 105 meq/L 98-107 (test code = 382) CO2 (BEAKER) (test 28 meq/L 22-29 code = 355) BLOOD UREA 10 mg/dL 7-21 NITROGEN (BEAKER) (test code = 354) CREATININE 0.66 mg/dL 0.57-1.25 (BEAKER) (test code = 358) GLUCOSE RANDOM 164 mg/dL 70-105 H (BEAKER) (test code = 652) CALCIUM (BEAKER) 8.7 mg/dL 8.4-10.2 (test code = 697) AST (SGOT) 35 U/L 5-34 H (BEAKER) (test code = 353) ALT (SGPT) 36 U/L 6-55 (BEAKER) (test code = 347) EGFR (BEAKER) 108 Interpretatio n of eGFR (test code = 1092) mL/min/1.[address] age Description sq m Result G1 Maximus l or high >=90 G2 Mildly decreased 60-89 G3a Mildl y to moderately 45-5 9 G3b Moderately to s everely 30-44 G4 Severl y decreased 15-29 G5 Kidney failure <15Reported eGF R is based on the CKD-EPI 202 equation that d oes not use a race coefficientEsti mated GFR is not as accur ate as Creatinine Maria Victoria townsend in predicting glom erular filtration rate . Estimated GFR is not appl icable for dialysis patien ts [employer] ID - THOMAS [id number] 07:26:23 Test Item Value Reference Range Interpretation Comments MAGNESIUM (BEAKER) (test code = 2.2 mg/dL 1.6-2.6 627) [employer] ID - THOMAS MCBC W/PLT COUNT & AUTO [id number] 06:52:28 Test Item Value Reference Range Interpretation Comments WHITE BLOOD CELL COUNT (BEAKER) 6.2 K/ L 3.5-10.5 (test code = 775) RED BLOOD CELL COUNT (BEAKER) 2.97 M/ L 4.63-6.08 L (test code = 761) HEMOGLOBIN (BEAKER) (test code = 9.2 GM/DL 13.7-17.5 L 410) HEMATOCRIT (BEAKER) (test code = 28.0 % 40.1-51.0 L 411) MEAN CORPUSCULAR VOLUME (BEAKER) 94.3 fL 79.0-92.2 H (test code = 753) MEAN CORPUSCULAR HEMOGLOBIN 31.0 pg 25.7-32.2 (BEAKER) (test code = 751) MEAN CORPUSCULAR HEMOGLOBIN CONC 32.9 GM/DL 32.3-36.5 (BEAKER) (test code = 752) RED CELL DISTRIBUTION WIDTH 17.7 % 11.6-14.4 H (BEAKER) (test code = 412) PLATELET COUNT (BEAKER) (test 230 K/CU MM 150-450 code = 756) MEAN PLATELET VOLUME (BEAKER) 10.0 fL 9.4-12.4 (test code = 754) NUCLEATED RED BLOOD CELLS 0 /100 WBC 0-0 (BEAKER) (test code = 413) NEUTROPHILS RELATIVE PERCENT 84 % (BEAKER) (test code = 429) LYMPHOCYTES RELATIVE PERCENT 3 % (BEAKER) (test code = 430) MONOCYTES RELATIVE PERCENT 9 % (BEAKER) (test code = 431) EOSINOPHILS RELATIVE PERCENT 0 % (BEAKER) (test code = 432) BASOPHILS RELATIVE PERCENT 0 % (BEAKER) (test code = 437) NEUTROPHILS ABSOLUTE COUNT 5.17 K/ L 1.78-5.38 (BEAKER) (test code = 670) LYMPHOCYTES ABSOLUTE COUNT 0.18 K/ L 1.32-3.57 L (BEAKER) (test code = 414) MONOCYTES ABSOLUTE COUNT (BEAKER) 0.58 K/ L 0.30-0.82 (test code = 415) EOSINOPHILS ABSOLUTE COUNT 0.00 K/ L 0.04-0.54 L (BEAKER) (test code = 416) BASOPHILS ABSOLUTE COUNT (BEAKER) 0.00 K/ L 0.01-0.08 L (test code = 417) IMMATURE GRANULOCYTES-RELATIVE 4 % 0-1 H PERCENT (BEAKER) (test code = 2801) COMPREHENSIVE METABOLIC [id number] 07:39:46 Test Item Value Reference Range Interpretation Comments TOTAL PROTEIN 6.0 gm/dL 6.0-8.3 (BEAKER) (test code = 770) ALBUMIN (BEAKER) 3.7 g/dL 3.5-5.0 (test code = 1145) ALKALINE 88 U/L 40-150 PHOSPHATASE (BEAKER) (test code = 346) BILIRUBIN TOTAL 0.8 mg/dL 0.2-1.2 (BEAKER) (test code = 377) SODIUM (BEAKER) 142 meq/L 136-145 (test code = 381) POTASSIUM (BEAKER) 3.9 meq/L 3.5-5.1 (test code = 379) CHLORIDE (BEAKER) 105 meq/L 98-107 (test code = 382) CO2 (BEAKER) (test 28 meq/L 22-29 code = 355) BLOOD UREA 7 mg/dL 7-21 NITROGEN (BEAKER) (test code = 354) CREATININE 0.68 mg/dL 0.57-1.25 (BEAKER) (test code = 358) GLUCOSE RANDOM 141 mg/dL 70-105 H (BEAKER) (test code = 652) CALCIUM (BEAKER) 9.0 mg/dL 8.4-10.2 (test code = 697) AST (SGOT) 13 U/L 5-34 (BEAKER) (test code = 353) ALT (SGPT) 18 U/L 6-55 (BEAKER) (test code = 347) EGFR (BEAKER) 107 Interpretatio n of eGFR (test code = 1092) mL/min/1.[address] age Description sq m Result G1 Maximus l or high >=90 G2 Mildly decreased 60-89 G3a Mildl y to moderately 45-5 9 G3b Moderately to s everely 30-44 G4 Severl y decreased 15-29 G5 Kidney failure <15Reported eGF R is based on the CKD-EPI 2021 equation that d oes not use a race coefficientEsti mated GFR is not as accur ate as Creatinine Maria Victoria townsend in predicting glom erular filtration rate . Estimated GFR is not appl icable for dialysis patien ts [employer] ID - [id number] 07:39:46 Test Item Value Reference Range Interpretation Comments MAGNESIUM (BEAKER) (test code = 2.0 mg/dL 1.6-2.6 627) [employer] ID - LMPH, [id number] 07:12:17 Test Item Value Reference Range Interpretation Comments PH UA (BEAKER) (test code = 467) 8.0 5.0-8.0 [employer] ID - [auto]CBC W/PLT COUNT & AUTO [id number] 06:19:10 Test Item Value Reference Range Interpretation Comments WHITE BLOOD CELL COUNT (BEAKER) 5.5 K/ L 3.5-10.5 (test code = 775) RED BLOOD CELL COUNT (BEAKER) 3.01 M/ L 4.63-6.08 L (test code = 761) HEMOGLOBIN (BEAKER) (test code = 9.3 GM/DL 13.7-17.5 L 410) HEMATOCRIT (BEAKER) (test code = 28.6 % 40.1-51.0 L 411) MEAN CORPUSCULAR VOLUME (BEAKER) 95.0 fL 79.0-92.2 H (test code = 753) MEAN CORPUSCULAR HEMOGLOBIN 30.9 pg 25.7-32.2 (BEAKER) (test code = 751) MEAN CORPUSCULAR HEMOGLOBIN CONC 32.5 GM/DL 32.3-36.5 (BEAKER) (test code = 752) RED CELL DISTRIBUTION WIDTH 17.4 % 11.6-14.4 H (BEAKER) (test code = 412) PLATELET COUNT (BEAKER) (test 244 K/CU MM 150-450 code = 756) MEAN PLATELET VOLUME (BEAKER) 10.5 fL 9.4-12.4 (test code = 754) NUCLEATED RED BLOOD CELLS 0 /100 WBC 0-0 (BEAKER) (test code = 413) NEUTROPHILS RELATIVE PERCENT 88 % (BEAKER) (test code = 429) LYMPHOCYTES RELATIVE PERCENT 9 % (BEAKER) (test code = 430) MONOCYTES RELATIVE PERCENT 1 % (BEAKER) (test code = 431) EOSINOPHILS RELATIVE PERCENT 0 % (BEAKER) (test code = 432) BASOPHILS RELATIVE PERCENT 0 % (BEAKER) (test code = 437) NEUTROPHILS ABSOLUTE COUNT 4.86 K/ L 1.78-5.38 (BEAKER) (test code = 670) LYMPHOCYTES ABSOLUTE COUNT 0.49 K/ L 1.32-3.57 L (BEAKER) (test code = 414) MONOCYTES ABSOLUTE COUNT (BEAKER) 0.05 K/ L 0.30-0.82 L (test code = 415) EOSINOPHILS ABSOLUTE COUNT 0.00 K/ L 0.04-0.54 L (BEAKER) (test code = 416) BASOPHILS ABSOLUTE COUNT (BEAKER) 0.01 K/ L 0.01-0.08 (test code = 417) IMMATURE GRANULOCYTES-RELATIVE 2 % 0-1 H PERCENT (BEAKER) (test code = 2809) PH, [id number] 09:11:13 Test Item Value Reference Range Interpretation Comments PH UA (BEAKER) (test code = 467) 7.5 5.0-8.0 [employer] ID - [auto][id number] 08:28:44 Test Item Value Reference Range Interpretation Comments MAGNESIUM (BEAKER) (test code = 1.8 mg/dL 1.6-2.6 627) [employer] ID - PIAYA LCOMPREHENSIVE METABOLIC [id number] 08:28:44 Test Item Value Reference Range Interpretation Comments TOTAL PROTEIN 5.9 gm/dL 6.0-8.3 L (BEAKER) (test code = 770) ALBUMIN (BEAKER) 3.5 g/dL 3.5-5.0 (test code = 1145) ALKALINE 93 U/L 40-150 PHOSPHATASE (BEAKER) (test code = 346) BILIRUBIN TOTAL 0.5 mg/dL 0.2-1.2 (BEAKER) (test code = 377) SODIUM (BEAKER) 141 meq/L 136-145 (test code = 381) POTASSIUM (BEAKER) 3.4 meq/L 3.5-5.1 L (test code = 379) CHLORIDE (BEAKER) 108 meq/L 98-107 H (test code = 382) CO2 (BEAKER) (test 23 meq/L 22-29 code = 355) BLOOD UREA 7 mg/dL 7-21 NITROGEN (BEAKER) (test code = 354) CREATININE 0.68 mg/dL 0.57-1.25 (BEAKER) (test code = 358) GLUCOSE RANDOM 92 mg/dL 70-105 (BEAKER) (test code = 652) CALCIUM (BEAKER) 8.6 mg/dL 8.4-10.2 (test code = 697) AST (SGOT) 18 U/L 5-34 (BEAKER) (test code = 353) ALT (SGPT) 16 U/L 6-55 (BEAKER) (test code = 347) EGFR (BEAKER) 107 Interpretatio n of eGFR (test code = 1092) mL/min/1.[address] age Description sq m Result G1 Maximus l or high >=90 G2 Mildly decreased 60-89 G3a Mildl y to moderately 45-5 9 G3b Moderately to s everely 30-44 G4 Severl y decreased 15-29 G5 Kidney failure <15Reported eGF R is based on the CKD-EPI 2021 equation that d oes not use a race coefficientEsti mated GFR is not as accur ate as Creatinine Maria Victoria townsend in predicting glom erular filtration rate . Estimated GFR is not appl icable for dialysis patien ts [employer] ID - PIAYA LSpecimen slightly lipemicPH, [id number] 06:23:43 Test Item Value Reference Range Interpretation Comments PH UA (BEAKER) (test code = 467) 5.5 5.0-8.0 [employer] ID - [auto]CBC W/PLT COUNT & AUTO [id number] 06:19:40 Test Item Value Reference Range Interpretation Comments WHITE BLOOD CELL COUNT (BEAKER) 4.3 K/ L 3.5-10.5 (test code = 775) RED BLOOD CELL COUNT (BEAKER) 2.85 M/ L 4.63-6.08 L (test code = 761) HEMOGLOBIN (BEAKER) (test code = 9.0 GM/DL 13.7-17.5 L 410) HEMATOCRIT (BEAKER) (test code = 27.8 % 40.1-51.0 L 411) MEAN CORPUSCULAR VOLUME (BEAKER) 97.5 fL 79.0-92.2 H (test code = 753) MEAN CORPUSCULAR HEMOGLOBIN 31.6 pg 25.7-32.2 (BEAKER) (test code = 751) MEAN CORPUSCULAR HEMOGLOBIN CONC 32.4 GM/DL 32.3-36.5 (BEAKER) (test code = 752) RED CELL DISTRIBUTION WIDTH 17.9 % 11.6-14.4 H (BEAKER) (test code = 412) PLATELET COUNT (BEAKER) (test 264 K/CU MM 150-450 code = 756) MEAN PLATELET VOLUME (BEAKER) 10.4 fL 9.4-12.4 (test code = 754) NUCLEATED RED BLOOD CELLS 0 /100 WBC 0-0 (BEAKER) (test code = 413) NEUTROPHILS RELATIVE PERCENT 49 % (BEAKER) (test code = 429) LYMPHOCYTES RELATIVE PERCENT 31 % (BEAKER) (test code = 430) MONOCYTES RELATIVE PERCENT 15 % (BEAKER) (test code = 431) EOSINOPHILS RELATIVE PERCENT 2 % (BEAKER) (test code = 432) BASOPHILS RELATIVE PERCENT 2 % (BEAKER) (test code = 437) NEUTROPHILS ABSOLUTE COUNT 2.12 K/ L 1.78-5.38 (BEAKER) (test code = 670) LYMPHOCYTES ABSOLUTE COUNT 1.32 K/ L 1.32-3.57 (BEAKER) (test code = 414) MONOCYTES ABSOLUTE COUNT (BEAKER) 0.66 K/ L 0.30-0.82 (test code = 415) EOSINOPHILS ABSOLUTE COUNT 0.07 K/ L 0.04-0.54 (BEAKER) (test code = 416) BASOPHILS ABSOLUTE COUNT (BEAKER) 0.08 K/ L 0.01-0.08 (test code = 417) IMMATURE GRANULOCYTES-RELATIVE 2 % 0-1 H PERCENT (BEAKER) (test code = 2801) RAD, CHEST, 1 VIEW, NON [id number] 19:16:00Reason for exam:->check picc placementShould this be performed at the bedside?->Yes [facility] 1965 Sex: MFINAL REPORT Chest, one view History: PICC line placement Comparison: 11/01/2021Findings:Clear lungs. Normal size heart. No pleural effusion or pneumothorax. Right PICC line terminates in the superior vena cava. Impression:Satisfactory right PICC line position. 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 He is receiving chemotherapy. The peripheral blood and flow cytometric studies ([id number]) show approximately 2.5% CD34+ myeloblasts. Clinical correlation is recommended [id number] Shagufta Molina M.D. (BEAKER) (test code = (electronic signature) 4073) BLOOD [id number] 13:02:18 Test Item Value Reference Range Interpretation Comments CULTURE (BEAKER) (test No growth in 5 days code = 1095) BLOOD [id number] 13:02:18 Test Item Value Reference Range Interpretation Comments CULTURE (BEAKER) (test No growth in 5 days code = 1095) CT, [id number] 09:34:00Unlisted Reason for Exam - Click Yes and Enter Reason Below->NoIs this for enterography?->NoWill this procedure require oral contrast?->No [facility] : 1965 Sex: MFINAL REPORT CT abdomen and pelvis with contrast History: Sepsis Comparison: 08/31/2021 Technique: serial axial imaging was performed following up to 100cc of non ionic iodinated intravenous contrast as per departmental protocol. Multiplanar images are reconstructed and reviewed when indicated. This CT examination is performed using one or more of the following dose reduction techniques: Automated exposure control, adjustment of the mA and /or kV according to patient size, and/oruse of iterative reconstruction technique. Findings: Bibasilar subsegmental atelectasis. Unremarkable appearance of pancreas and spleen. Unremarkable appearance of liver and gallbladder. Unremarkable appearance of the adrenal glands. Stable appearance of multiple right renal cysts and nonobstructing calculi. No further follow-up imaging recommended. Kidneys, ureters, and bladder are otherwise unremarkable. Prostate gland is normal in size. . No small or large bowel obstruction. No apparent bowel wall thickening. No findings to indicate acute appendicitis. No free fluid or lymphadenopathy. No abdominal aortic aneurysm. No aggressive osseous lesion. Impression: 1. No acute findings in the abdomen orpelvis.2. Stable right renal cysts and nonobstructing calculi. Signed: Mack Wagner MDReport Verified Date/Time: 11/02/2021 09:34:46 Reading Location: [facility] Diagnostic Imaging Reading Room - [place] [address] CBC W/PLT COUNT & AUTO [id number] 09:03:21 Test Item Value Reference Range Interpretation Comments WHITE BLOOD CELL COUNT (BEAKER) 24.5 K/ L 4.0-10.0 H (test code = 775) RED BLOOD CELL COUNT (BEAKER) 2.58 M/ L 4.20-5.80 L (test code = 761) HEMOGLOBIN (BEAKER) (test code = 8.0 GM/DL 13.0-16.8 L 410) HEMATOCRIT (BEAKER) (test code = 23.0 % 36.0-50.0 L 411) MEAN CORPUSCULAR VOLUME (BEAKER) 89.1 fL 82.0-99.0 (test code = 753) MEAN CORPUSCULAR HEMOGLOBIN 31.0 pg 27.0-33.0 (BEAKER) (test code = 751) MEAN CORPUSCULAR HEMOGLOBIN CONC 34.8 GM/DL 32.0-36.0 (BEAKER) (test code = 752) RED CELL DISTRIBUTION WIDTH 14.2 % 12.0-15.0 (BEAKER) (test code = 412) PLATELET COUNT (BEAKER) (test code 41 K/CU MM 150-430 L = 756) MEAN PLATELET VOLUME (BEAKER) 10.5 fL 6.0-11.5 (test code = 754) NUCLEATED RED BLOOD CELLS (BEAKER) 0 /100 WBC 0-0 (test code = 413) (MANUAL DIFFERENTIAL)2021-11-02 09:03:21 Test Item Value Reference Range Interpretation Comments NEUTROPHILS - REL (DIFF) (BEAKER) 15 % (test code = 1359) LYMPHOCYTES - REL (DIFF) (BEAKER) 17 % (test code = 1360) MONOCYTES - REL (DIFF) (BEAKER) 6 % (test code = 1361) METAMYELOCYTES-REL (DIFF) (BEAKER) 12 % 0-0 H (test code = 258) MYELOCYTES-REL (DIFF) (BEAKER) 42 % 0-0 H (test code = 1594) PROMYELOCYTES-REL (DIFF) (BEAKER) 4 % 0-0 H (test code = 259) BANDS - REL (DIFF) (BEAKER) (test 3 % 0-10 code = 1348) ATYPICAL LYMPHOCYTE - REL (DIFF) 1 % 0-0 H (BEAKER) (test code = 260) NEUTROPHILS - ABS (DIFF) (BEAKER) 3.68 K/ L 1.80-8.00 (test code = 1365) LYMPHOCYTES - ABS (DIFF) (BEAKER) 4.17 K/ L 1.48-4.50 (test code = 1366) MONOCYTES - ABS (DIFF) (BEAKER) 1.47 K/ L 0.00-1.30 H (test code = 1367) METAMYELOCTYES - ABS (DIFF) 2.94 K/ L 0.00-0.00 H (BEAKER) (test code = 261) PROMYELOCYTES - ABS (DIFF) 0.98 K/ L 0.00-0.00 H (BEAKER) (test code = 262) BANDS-ABS (DIFF) (BEAKER) (test 0.7 K/ L 0.0-0.8 code = 1349) ATYPICAL LYMPHOCYTES - ABS (DIFF) 0.25 K/ L 0.00-0.00 H (BEAKER) (test code = 263) MYELOCYTES-ABS (DIFF) (BEAKER) 10.29 K/ L 0.00-0.00 H (test code = 1593) TOTAL COUNTED (BEAKER) (test code 100 = 1351) BANDS + SEGMENTED NEUTROPHILS 4.41 (BEAKER) (test code = 1352) PLT MORPHOLOGY (BEAKER) (test code Normal = 486) RBC MORPHOLOGY (BEAKER) (test code Normal = 762) SMUDGE CELLS (BEAKER) (test code = Present 1371) TOXIC GRANULATION (BEAKER) (test Present code = 771) FLOW CYTOMETRY [id number] 08:00:25 Test Item Value Reference Range Interpretation Comments FLOW CYTOMETRY RESULT See Separate Report POINTER (BEAKER) (test code = 3380) FLOW CYTOMETRY AP CASE # [id number] (BEAKER) (test code = 2759) BASIC METABOLIC [id number] 07:02:27 Test Item Value Reference Range Interpretation Comments SODIUM (BEAKER) 142 meq/L 135-148 (test code = 381) POTASSIUM 3.5 meq/L 3.6-5.5 L (BEAKER) (test code = 379) CHLORIDE (BEAKER) 107 meq/L 98-106 H (test code = 382) CO2 (BEAKER) 22 meq/L 20-29 (test code = 355) BLOOD UREA 4 mg/dL 10-26 L NITROGEN (BEAKER) (test code = 354) CREATININE 0.70 mg/dL 0.50-1.20 (BEAKER) (test code = 358) GLUCOSE RANDOM 104 mg/dL 70-110 (BEAKER) (test code = 652) CALCIUM (BEAKER) 8.6 mg/dL 8.5-10.5 (test code = 697) EGFR (BEAKER) 106 Interpretatio n of eGFR (test code = mL/min/1.73 values Stage De scription 1092) sq m Result G1 Maximus l or high >=90 G2 Mildly decreased 60-89 G3a Mildl y to moderately 45-5 9 G3b Moderately to s everely 30-44 G4 Severl y decreased 15-29 G5 Kidney failure <15Reported eGF R is based on the CKD-EPI 1 equation that d oes not use a race coefficientEsti mated GFR is not as accur ate as Creatinine Maria Victoria kristian in predicting glom erular filtration rate . Estimated GFR is not appl icable for dialysis patien ts [employer] ID - DSENSONOperator ID - DSENSONOperator ID - DSENSONOperator ID - DSENSONOperator ID - DSENSONOperator ID - DSENSONOperator ID - DSENSONOperator ID - DSENSONOperator ID - DSENSONOperator ID - [id number] 06:55:22 Test Item Value Reference Range Interpretation Comments MAGNESIUM (BEAKER) (test code = 2.0 mg/dL 1.5-3.0 627) [employer] ID - DSENSONOperator ID - DSENSONOperator ID - DSENSONOperator ID - [id number] 06:52:20 Test Item Value Reference Range Interpretation Comments PHOSPHORUS (BEAKER) (test code = 2.8 mg/dL 2.5-4.5 604) [employer] ID - DSENSONFLOW [id number] 17:26:30Flow Cytometry Report Case: [id number] Authorizing Provider: Shagufta Molina, Collected: 10/04 10:24 AM Ordering Location: [facility] ICU Received: 11/01/2021 01:51 PM Pathologist: Lubna Padron MD Specimen: Other PERIPHERAL BLOOD, FLOW CYTOMETRY:- 2.5% CD34 POSITIVE MYELOBLASTS- VIRTUALLY ABSENT B CELLS- NO ABERRANT T CELL POPULATION The patient has a 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 He is undergoing chemotherapy. The peripheral blood flow cytometric studies show approximately 2.5% CD34+ myeloblasts. Clinical correlation is recommended.[id number] lymphoma, undergoing chemotherapyPeripheral bloodCD8, surface-Reinholds, CD56, surface-Lambda, CD5, CD19, CD10, CD3, CD20, CD4, CD45, CD14, CD13, CD33, CD117, CD34, CD16, CD64, HLA-DRSpecimen Viability: 97.4% Number of Events Acquired: 73026 The following populations are identified: Blasts: the dim CD45+ CD34+ blasts comprise 2.5% of total cells. The majority of these cells express CD13 and CD33 (myeloblasts). Lymphocytes: Bright CD45+ lymphocytes comprise 36.5% of total cells. T cells show a CD4:CD8 ratio of 5.6 and normal expression of the eid T cell antigens CD3 and CD5. B cells are virtually absent.Myeloid/monocytic populations: As identified by CD45 and light scatter characteristics, granulocytes comprise 30% of cells analyzed, and CD14+ monocytes comprise 20.7% of total cells. The remaining events analyzed represent nonviable cells, non-hematolymphoid cells, and debris.These tests were developed and their performance characteristics determinedby [facility]. They have not been cleared or approved by the U.S. Food and Drug Administration. The FDA has determined that such clearance or approval is not necessary. It should not be regarded as investigational or for research. This laboratory is certified under the Clinical Laboratory Improvement Amendments of 1988 ("CLIA") as qualified to perform high-complexity clinical testing.[facility], Department of Pathology, [address] [place] [address], [facility], Department of [facility]ology, [address] [place] [address], ENVQXDZRGH LEVEL, [id number] 17:24:04 Test Item Value Reference Range Interpretation Comments VANCOMYCIN TROUGH (BEAKER) (test 21.0 ug/mL 10.0-20.0 H code = 522) [employer] ID - [id number], CHEST, PA OR AP, 1 [id number] 11:42:00 VAT/Infusion Therapy Nurse to Call Radiology Department when patient is readyReason for exam:->s/p picc line [facility] : 1965 Sex: MFINAL REPORT Chest, 1 view, 11/01/2021 11:39 AM. History: PICC placement. Comparison: 09/21/2021. Discussion: A left lower extremity PICC is present terminating near the cavoatrial junction. The cardiomediastinal silhouette and pulmonary vasculature are within normal limits for a portable exam. Scattered linear opacities are present in the right lung. The lungs are clear without ev idence of consolidation or effusion. The soft tissues and osseous structures are intact. IMPRESSION:Right-sided linear atelectasis. PICC is in good position. Signed: Iraj Ferrara MDReport Verified Date/Time: 11/01/2021 11:42:50 Reading Location: [facility] Reading Room LACTIC ACID, [id number] 07:05:34 Test Item Value Reference Range Interpretation Comments LACTATE BLOOD 1.70 mmol/L See_Comment [Automated me ssage] VENOUS (2) (BEAKER) The syst em which (test code = 2872) generated this result transmitted ref erence range: 0.50-<2. 00. The reference range was not used to interpr et this result as normal/abnormal . [employer] ID - LITOOperator ID - LITOOperator ID - LITOOperator ID - LITOCBC W/PLT COUNT & AUTO [id number] 06:02:31 Test Item Value Reference Range Interpretation Comments WHITE BLOOD CELL COUNT (BEAKER) 9.4 K/ L 4.0-10.0 (test code = 775) RED BLOOD CELL COUNT (BEAKER) 2.17 M/ L 4.20-5.80 L (test code = 761) HEMOGLOBIN (BEAKER) (test code = 6.7 GM/DL 13.0-16.8 L 410) HEMATOCRIT (BEAKER) (test code = 19.6 % 36.0-50.0 LL 411) MEAN CORPUSCULAR VOLUME (BEAKER) 90.3 fL 82.0-99.0 (test code = 753) MEAN CORPUSCULAR HEMOGLOBIN 30.9 pg 27.0-33.0 (BEAKER) (test code = 751) MEAN CORPUSCULAR HEMOGLOBIN CONC 34.2 GM/DL 32.0-36.0 (BEAKER) (test code = 752) RED CELL DISTRIBUTION WIDTH 13.6 % 12.0-15.0 (BEAKER) (test code = 412) PLATELET COUNT (BEAKER) (test code 47 K/CU MM 150-430 L = 756) MEAN PLATELET VOLUME (BEAKER) 10.5 fL 6.0-11.5 (test code = 754) NUCLEATED RED BLOOD CELLS (BEAKER) 0 /100 WBC 0-0 (test code = 413) (MANUAL DIFFERENTIAL)2021-11-01 06:02:31 Test Item Value Reference Range Interpretation Comments NEUTROPHILS - REL (DIFF) (BEAKER) 14 % (test code = 1359) LYMPHOCYTES - REL (DIFF) (BEAKER) 39 % (test code = 1360) MONOCYTES - REL (DIFF) (BEAKER) 44 % (test code = 1361) PROMYELOCYTES-REL (DIFF) (BEAKER) 2 % 0-0 H (test code = 259) BANDS - REL (DIFF) (BEAKER) (test 1 % 0-10 code = 1348) NEUTROPHILS - ABS (DIFF) (BEAKER) 1.32 K/ L 1.80-8.00 L (test code = 1365) LYMPHOCYTES - ABS (DIFF) (BEAKER) 3.67 K/ L 1.48-4.50 (test code = 1366) MONOCYTES - ABS (DIFF) (BEAKER) 4.14 K/ L 0.00-1.30 H (test code = 1367) PROMYELOCYTES - ABS (DIFF) (BEAKER) 0.19 K/ L 0.00-0.00 H (test code = 262) BANDS-ABS (DIFF) (BEAKER) (test 0.1 K/ L 0.0-0.8 code = 1349) TOTAL COUNTED (BEAKER) (test code = 100 1351) BANDS + SEGMENTED NEUTROPHILS 1.41 (BEAKER) (test code = 1352) WBC MORPHOLOGY (BEAKER) (test code Normal = 487) PLT MORPHOLOGY (BEAKER) (test code Normal = 486) ANISOCYTOSIS (BEAKER) (test code = 1+ few 961) BASIC METABOLIC [id number] 05:35:42 Test Item Value Reference Range Interpretation Comments SODIUM (BEAKER) 140 meq/L 135-148 (test code = 381) POTASSIUM 3.3 meq/L 3.6-5.5 L (BEAKER) (test code = 379) CHLORIDE (BEAKER) 110 meq/L 98-106 H (test code = 382) CO2 (BEAKER) 23 meq/L 20-29 (test code = 355) BLOOD UREA 4 mg/dL 10-26 L NITROGEN (BEAKER) (test code = 354) CREATININE 0.66 mg/dL 0.50-1.20 (BEAKER) (test code = 358) GLUCOSE RANDOM 92 mg/dL 70-110 (BEAKER) (test code = 652) CALCIUM (BEAKER) 8.3 mg/dL 8.5-10.5 L (test code = 697) EGFR (BEAKER) 108 Interpretatio n of eGFR (test code = mL/min/1.73 values Stage De scription 1092) sq m Result G1 Maximus l or high >=90 G2 Mildly decreased 60-89 G3a Mildl y to moderately 45-5 9 G3b Moderately to s everely 30-44 G4 Severl y decreased 15-29 G5 Kidney failure <15Reported eGF R is based on the CKD-EPI 202 equation that d oes not use a race coefficientEsti mated GFR is not as accur ate as Creatinine Maria [place] townsend in predicting glom erular filtration rate . Estimated GFR is not appl icable for dialysis patien ts [employer] ID - LITOOperator ID - LITOOperator ID - LITOOperator ID - LITOOperator ID - LITOOperator ID - LITOOperator ID - LITOOperator ID - LITOOperator ID - LITOOperator ID - [id number] 05:33:48 Test Item Value Reference Range Interpretation Comments MAGNESIUM (BEAKER) (test code = 1.9 mg/dL 1.5-3.0 627) [employer] ID - LITOOperator ID - LITOOperator ID - LITOOperator ID - YOUNG [id number] 05:31:09 Test Item Value Reference Range Interpretation Comments PHOSPHORUS (BEAKER) (test code = 2.5 mg/dL 2.5-4.5 604) [employer] ID - LITOLACTIC ACID, [id number] 11:51:53 Test Item Value Reference Range Interpretation Comments LACTATE BLOOD 2.86 mmol/L See_Comment HH [Automated me ssage] VENOUS (2) (BEAKER) The syst em which (test code = 2872) generated this result transmitted ref erence range: 0.50-<2. 00. The reference range was not used to interpr et this result as normal/abnormal . [employer] ID - [id number] ID - [id number] ID - [id number] ID - [id number]/RT-[id number] ([facility])2021-10-31 11:51:27 Test Item Value Reference Range Interpretation Comments SARS-COV2/RT-PCR Negative Negative The SARS-Co V-2 target (test code = nucleic acids a re not 2007223) detected in thi s specimen. Negative result s do not preclude SARS-C oV-2 infection and s hould not be used as the gael e basis for patient managem ent decisions. Nega tive results must be combine d with clinical observ ations, patient history , and epidemiological information. A false negativ e result may occur if a spec imen is improperly anabell ected, transported or handled. This SARS CoV-2 test is a rapid, real-time RT-PC R test intended for th e qualitative detection of nu cleic acid from SARS-CoV-2 in a nasopharyngeal swab specimen collected from individuals suspected of CO VID-19 by their healthcar e provider. This test has been authorized by FDA under an EUA for use by authorized laboratories. This test is only authorized for the duration of the declaration that circumstances exist justifying the authorization of emergency use of in vitro diagnostic tests for detection and/or diagnosis of COVID-19 under Section 564(b)(1) of the Federal Food, Drug and Cosmetic Act, 21 U.S.C. 360bbb-3(b)(1), unless the authorization is terminated or revoked sooner. Fact Sheet for Healthcare Providers: https://www.[employer].co m/Documents/Xpert%20Xpress%20SARS%20CoV-2/Fact%20Sheets/302-7835%82AXQX-FTW-3%20 HEALTHCARE%20PROVIDERS%20FACT%20SHEET.pdf Fact Sheet for Healthcare Patients: https://www.[employer].Company/Documents/Xpert%20Xp ress%20SARS%20CoV-2/Fact%20Sheets/302-3801%72ZTTO-YOK-2%20PATIENT%20FACT%20SHEET .pdfURINALYSIS W/ REFLEX URINE [id number] 11:35:10 Test Item Value Reference Range Interpretation Comments COLOR (BEAKER) (test code = Yellow 470) CLARITY (BEAKER) (test code = Clear 469) SPECIFIC GRAVITY UA (BEAKER) 1.020 1.001-1.035 (test code = 468) PH UA (BEAKER) (test code = 5.0 5.0-8.0 467) PROTEIN UA (BEAKER) (test code Negative Negative = 464) GLUCOSE UA (BEAKER) (test code Negative Negative = 365) KETONES UA (BEAKER) (test code Negative Negative = 371) BILIRUBIN UA (BEAKER) (test Negative Negative code = 462) BLOOD UA (BEAKER) (test code = Negative Negative 461) NITRITE UA (BEAKER) (test code Negative Negative = 465) LEUKOCYTE ESTERASE UA (BEAKER) Negative Negative (test code = 466) UROBILINOGEN UA (BEAKER) (test 0.2 mg/dL 0.2-1.0 code = 463) BACTERIA (BEAKER) (test code = None Seen 517) RBC UA-MANUAL (BEAKER) (test None Seen /HPF code = 1659) WBC UA-MANUAL (BEAKER) (test <5 /HPF code = 1661) SQUAMOUS EPITHELIAL MANUAL None Seen /HPF (BEAKER) (test code = 1663) SOURCE(BEAKER) (test code = 2795) COMPREHENSIVE METABOLIC [id number] 09:29:39 Test Item Value Reference Range Interpretation Comments TOTAL PROTEIN 5.3 gm/dL 6.0-8.5 L (BEAKER) (test code = 770) ALBUMIN (BEAKER) 3.5 g/dL 3.5-5.0 (test code = 1145) ALKALINE 87 U/L 30-115 PHOSPHATASE (BEAKER) (test code = 346) BILIRUBIN TOTAL 0.5 mg/dL 0.1-1.2 (BEAKER) (test code = 377) SODIUM (BEAKER) 140 meq/L 135-148 (test code = 381) POTASSIUM (BEAKER) 3.3 meq/L 3.6-5.5 L (test code = 379) CHLORIDE (BEAKER) 111 meq/L 98-106 H (test code = 382) CO2 (BEAKER) (test 19 meq/L 20-29 L code = 355) BLOOD UREA 8 mg/dL 10-26 L NITROGEN (BEAKER) (test code = 354) CREATININE 0.68 mg/dL 0.50-1.20 (BEAKER) (test code = 358) GLUCOSE RANDOM 94 mg/dL 70-110 (BEAKER) (test code = 652) CALCIUM (BEAKER) 8.3 mg/dL 8.5-10.5 L (test code = 697) AST (SGOT) 18 U/L 5-40 (BEAKER) (test code = 353) ALT (SGPT) 23 U/L 5-50 (BEAKER) (test code = 347) EGFR (BEAKER) 107 Interpretatio n of eGFR (test code = 1092) mL/min/1.[address] age Description sq m Result G1 Maximus l or high >=90 G2 Mildly decreased 60-89 G3a Mildl y to moderately 45-5 9 G3b Moderately to s everely 30-44 G4 Severl y decreased 15-29 G5 Kidney failure <15Reported eGF R is based on the CKD-EPI 2020 equation that d oes not use a race coefficientEsti mated GFR is not as accur ate as Creatinine Maria Victoria townsend in predicting glom erular filtration rate . Estimated GFR is not appl icable for dialysis patien ts [employer] ID - [id number] ID - [id number] ID - [id number] ID - [id number] ID - [id number] ID - [id number] ID - [id number] ID - [id number] ID - [id number] ID - [id number] ID - QYYWKNXMW229Velgxavq ID - [id number] ID - [id number] ID - [id number] ID - [id number] ID -[id number](MANUAL DIFFERENTIAL)2021-10-31 07:49:33 Test Item Value Reference Range Interpretation Comments NEUTROPHILS - REL (DIFF) (BEAKER) 3 % (test code = 1359) LYMPHOCYTES - REL (DIFF) (BEAKER) 52 % (test code = 1360) MONOCYTES - REL (DIFF) (BEAKER) 21 % (test code = 1361) EOSINOPHILS - REL (DIFF) (BEAKER) 1 % (test code = 1362) BASOPHILS - REL (DIFF) (BEAKER) 4 % (test code = 1363) MYELOCYTES-REL (DIFF) (BEAKER) 4 % 0-0 H (test code = 1594) PROMYELOCYTES-REL (DIFF) (BEAKER) 5 % 0-0 H (test code = 259) BANDS - REL (DIFF) (BEAKER) (test 1 % 0-10 code = 1348) BLASTS - REL (DIFF) (BEAKER) (test 2 % 0-0 H code = 1358) ATYPICAL LYMPHOCYTE - REL (DIFF) 7 % 0-0 H (BEAKER) (test code = 260) NEUTROPHILS - ABS (DIFF) (BEAKER) 0.10 K/ L 1.80-8.00 L (test code = 1365) LYMPHOCYTES - ABS (DIFF) (BEAKER) 1.77 K/ L 1.48-4.50 (test code = 1366) MONOCYTES - ABS (DIFF) (BEAKER) 0.71 K/ L 0.00-1.30 (test code = 1367) EOSINOPHILS - ABS (DIFF) (BEAKER) 0.03 K/ L 0.00-0.50 (test code = 1368) BASOPHILS - ABS (DIFF) (BEAKER) 0.14 K/ L 0.00-0.20 (test code = 1369) PROMYELOCYTES - ABS (DIFF) (BEAKER) 0.17 K/ L 0.00-0.00 H (test code = 262) BANDS-ABS (DIFF) (BEAKER) (test 0.0 K/ L 0.0-0.8 code = 1349) BLASTS - ABS (DIFF) (BEAKER) (test 0.07 K/ L 0.00-0.00 H code = 1350) ATYPICAL LYMPHOCYTES - ABS (DIFF) 0.24 K/ L 0.00-0.00 H (BEAKER) (test code = 263) MYELOCYTES-ABS (DIFF) (BEAKER) 0.14 K/ L 0.00-0.00 H (test code = 1593) TOTAL COUNTED (BEAKER) (test code = 100 1351) BANDS + SEGMENTED NEUTROPHILS 0.14 (BEAKER) (test code = 1352) WBC MORPHOLOGY (BEAKER) (test code Normal = 487) PLT MORPHOLOGY (BEAKER) (test code Normal = 486) RBC MORPHOLOGY (BEAKER) (test code Normal = 762) CBC W/PLT COUNT & AUTO [id number] 07:49:23 Test Item Value Reference Range Interpretation Comments WHITE BLOOD CELL COUNT 3.4 K/ L 4.0-10.0 L (BEAKER) (test code = 775) RED BLOOD CELL COUNT 2.53 M/ L 4.20-5.80 L (BEAKER) (test code = 761) HEMOGLOBIN (BEAKER) 7.8 GM/DL 13.0-16.8 L (test code = 410) HEMATOCRIT (BEAKER) 23.0 % 36.0-50.0 L (test code = 411) MEAN CORPUSCULAR VOLUME 90.9 fL 82.0-99.0 (BEAKER) (test code = 753) MEAN CORPUSCULAR 30.8 pg 27.0-33.0 HEMOGLOBIN (BEAKER) (test code = 751) MEAN CORPUSCULAR 33.9 GM/DL 32.0-36.0 HEMOGLOBIN CONC (BEAKER) (test code = 752) RED CELL DISTRIBUTION 13.9 % 12.0-15.0 WIDTH (BEAKER) (test code = 412) PLATELET COUNT (BEAKER) 7 K/CU MM 150-430 LL (test code = 756) MEAN PLATELET VOLUME Unable to report due (BEAKER) (test code = to abn ormal Platelet 754) population distribution. NUCLEATED RED BLOOD 0 /100 WBC 0-0 CELLS (BEAKER) (test code = 413) [id number] 07:26:54 Test Item Value Reference Range Interpretation Comments MAGNESIUM (BEAKER) (test code = 1.3 mg/dL 1.5-3.0 L 627) [employer] ID - [id number] ID - [id number] ID - [id number] ID - [id number] 07:23:52 Test Item Value Reference Range Interpretation Comments PHOSPHORUS (BEAKER) (test code = 3.0 mg/dL 2.5-4.5 604) [employer] ID - [id number] [id number] 07:09:09 Test Item Value Reference Range Interpretation Comments PROTIME (BEAKER) 11.4 seconds 9.3-12.0 Final Infor mation (test code = 759) (Auto Outp ut) INR (BEAKER) (test 1.04 See_Comment Final Inf ormation code = 370) (Auto Output) [Automated mess age] The system whic h generated this result transmitted ref erence range: <=5.90. The reference range was not used to int erpret this result as normal/abnormal . RECOMMENDED COUMADIN/WARFARIN INR THERAPY RANGESSTANDARD DOSE: 2.0 - 3.0 Includes: PROPHYLAXIS for venous thrombosis, systemic embolization; TREATMENT for venous thrombosis and/or pulmonary embolus.HIGH RISK: Target INR is 2.5-3.5 for patients with mechanical heart valves.LACTIC ACID, [id number] 07:06:49 Test Item Value Reference Range Interpretation Comments LACTATE BLOOD 2.60 mmol/L See_Comment HH [Automated me ssage] VENOUS (2) (BEAKER) The syst em which (test code = 2872) generated this result transmitted ref erence range: 0.50-<2. 00. The reference range was not used to interpr et this result as normal/abnormal . POCT-GLUCOSE [id number] 04:42:01 Test Item Value Reference Range Interpretation Comments POC-GLUCOSE METER 83 mg/dL 70-110 : TESTED A T [facility] [address] (BEAKER) (test code = [address]) [facility] [address]: [employer]Techni sandra ID = [id number] for Domingo antonio Altaf METHOTREXATE [id number] 07:55:55 Test Item Value Reference Range Interpretation Comments METHOTREXATE LEVEL (BEAKER) (test code 0.06 = 733) METHOTREXATE RESULT INTERPRETATION LOW DOSE: 0.50 - 1.00HIGH DOSE: 24hrs: 5.00 or Less 48hrs: 0.50 or Less 72hrs: 0.10 or LessCBC W/PLT COUNT & AUTO [id number] 05:05:59 Test Item Value Reference Range Interpretation Comments WHITE BLOOD CELL COUNT (BEAKER) 2.6 K/ L 3.5-10.5 L (test code = 775) RED BLOOD CELL COUNT (BEAKER) 2.60 M/ L 4.63-6.08 L (test code = 761) HEMOGLOBIN (BEAKER) (test code = 8.0 GM/DL 13.7-17.5 L 410) HEMATOCRIT (BEAKER) (test code = 24.9 % 40.1-51.0 L 411) MEAN CORPUSCULAR VOLUME (BEAKER) 95.8 fL 79.0-92.2 H (test code = 753) MEAN CORPUSCULAR HEMOGLOBIN 30.8 pg 25.7-32.2 (BEAKER) (test code = 751) MEAN CORPUSCULAR HEMOGLOBIN CONC 32.1 GM/DL 32.3-36.5 L (BEAKER) (test code = 752) RED CELL DISTRIBUTION WIDTH 16.2 % 11.6-14.4 H (BEAKER) (test code = 412) PLATELET COUNT (BEAKER) (test 199 K/CU MM 150-450 code = 756) MEAN PLATELET VOLUME (BEAKER) 9.9 fL 9.4-12.4 (test code = 754) NUCLEATED RED BLOOD CELLS 0 /100 WBC 0-0 (BEAKER) (test code = 413) NEUTROPHILS RELATIVE PERCENT 58 % (BEAKER) (test code = 429) LYMPHOCYTES RELATIVE PERCENT 35 % (BEAKER) (test code = 430) MONOCYTES RELATIVE PERCENT 4 % (BEAKER) (test code = 431) EOSINOPHILS RELATIVE PERCENT 1 % (BEAKER) (test code = 432) BASOPHILS RELATIVE PERCENT 1 % (BEAKER) (test code = 437) NEUTROPHILS ABSOLUTE COUNT 1.49 K/ L 1.78-5.38 L (BEAKER) (test code = 670) LYMPHOCYTES ABSOLUTE COUNT 0.89 K/ L 1.32-3.57 L (BEAKER) (test code = 414) MONOCYTES ABSOLUTE COUNT (BEAKER) 0.10 K/ L 0.30-0.82 L (test code = 415) EOSINOPHILS ABSOLUTE COUNT 0.02 K/ L 0.04-0.54 L (BEAKER) (test code = 416) BASOPHILS ABSOLUTE COUNT (BEAKER) 0.02 K/ L 0.01-0.08 (test code = 417) IMMATURE GRANULOCYTES-RELATIVE 2 % 0-1 H PERCENT (BEAKER) (test code = 2801) CBC W/PLT COUNT & AUTO [id number] 05:10:08 Test Item Value Reference Range Interpretation Comments WHITE BLOOD CELL COUNT (BEAKER) 4.9 K/ L 3.5-10.5 (test code = 775) RED BLOOD CELL COUNT (BEAKER) 2.84 M/ L 4.63-6.08 L (test code = 761) HEMOGLOBIN (BEAKER) (test code = 8.5 GM/DL 13.7-17.5 L 410) HEMATOCRIT (BEAKER) (test code = 26.7 % 40.1-51.0 L 411) MEAN CORPUSCULAR VOLUME (BEAKER) 94.0 fL 79.0-92.2 H (test code = 753) MEAN CORPUSCULAR HEMOGLOBIN 29.9 pg 25.7-32.2 (BEAKER) (test code = 751) MEAN CORPUSCULAR HEMOGLOBIN CONC 31.8 GM/DL 32.3-36.5 L (BEAKER) (test code = 752) RED CELL DISTRIBUTION WIDTH 16.7 % 11.6-14.4 H (BEAKER) (test code = 412) PLATELET COUNT (BEAKER) (test 290 K/CU MM 150-450 code = 756) MEAN PLATELET VOLUME (BEAKER) 11.0 fL 9.4-12.4 (test code = 754) NUCLEATED RED BLOOD CELLS 0 /100 WBC 0-0 (BEAKER) (test code = 413) NEUTROPHILS RELATIVE PERCENT 71 % (BEAKER) (test code = 429) LYMPHOCYTES RELATIVE PERCENT 11 % (BEAKER) (test code = 430) MONOCYTES RELATIVE PERCENT 13 % (BEAKER) (test code = 431) EOSINOPHILS RELATIVE PERCENT 0 % (BEAKER) (test code = 432) BASOPHILS RELATIVE PERCENT 0 % (BEAKER) (test code = 437) NEUTROPHILS ABSOLUTE COUNT 3.47 K/ L 1.78-5.38 (BEAKER) (test code = 670) LYMPHOCYTES ABSOLUTE COUNT 0.53 K/ L 1.32-3.57 L (BEAKER) (test code = 414) MONOCYTES ABSOLUTE COUNT (BEAKER) 0.65 K/ L 0.30-0.82 (test code = 415) EOSINOPHILS ABSOLUTE COUNT 0.01 K/ L 0.04-0.54 L (BEAKER) (test code = 416) BASOPHILS ABSOLUTE COUNT (BEAKER) 0.02 K/ L 0.01-0.08 (test code = 417) IMMATURE GRANULOCYTES-RELATIVE 4 % 0-1 H PERCENT (BEAKER) (test code = 2801) METHOTREXATE [id number] 17:06:39 Test Item Value Reference Range Interpretation Comments METHOTREXATE LEVEL 0.79 Testing p erformed at (BEAKER) (test code = 733) [facility], [address], [place] [address] pH, [id number] 07:40:12 Test Item Value Reference Range Interpretation Comments pH, UA (test code = 8.0 5.0-8.0 5803-2) FOREST (test code = FOREST) [employer] ID - [auto] Lab Interpretation (test Normal code = 15796-5) [facility], [id number] 07:40:12 Test Item Value Reference Range Interpretation Comments pH, UA (test code = 8.0 5.0-8.0 5803-2) FOREST (test code = FOREST) [employer] ID - [auto] Lab Interpretation (test Normal code = 31517-9) [facility], [id number] 07:40:12 Test Item Value Reference Range Interpretation Comments PH UA (BEAKER) (test code = 467) 8.0 5.0-8.0 [employer] ID - [auto]URIC [id number] 06:22:28 Test Item Value Reference Range Interpretation Comments URIC ACID (BEAKER) (test code = 3.1 mg/dL 2.6-7.2 773) [employer] ID - JONGAYA LCBC W/PLT COUNT & AUTO [id number] 06:14:11 Test Item Value Reference Range Interpretation Comments WHITE BLOOD CELL COUNT (BEAKER) 6.8 K/ L 3.5-10.5 (test code = 775) RED BLOOD CELL COUNT (BEAKER) 3.07 M/ L 4.63-6.08 L (test code = 761) HEMOGLOBIN (BEAKER) (test code = 9.2 GM/DL 13.7-17.5 L 410) HEMATOCRIT (BEAKER) (test code = 29.6 % 40.1-51.0 L 411) MEAN CORPUSCULAR VOLUME (BEAKER) 96.4 fL 79.0-92.2 H (test code = 753) MEAN CORPUSCULAR HEMOGLOBIN 30.0 pg 25.7-32.2 (BEAKER) (test code = 751) MEAN CORPUSCULAR HEMOGLOBIN CONC 31.1 GM/DL 32.3-36.5 L (BEAKER) (test code = 752) RED CELL DISTRIBUTION WIDTH 17.3 % 11.6-14.4 H (BEAKER) (test code = 412) PLATELET COUNT (BEAKER) (test 349 K/CU MM 150-450 code = 756) MEAN PLATELET VOLUME (BEAKER) 11.0 fL 9.4-12.4 (test code = 754) NUCLEATED RED BLOOD CELLS 0 /100 WBC 0-0 (BEAKER) (test code = 413) NEUTROPHILS RELATIVE PERCENT 84 % (BEAKER) (test code = 429) LYMPHOCYTES RELATIVE PERCENT 4 % (BEAKER) (test code = 430) MONOCYTES RELATIVE PERCENT 8 % (BEAKER) (test code = 431) EOSINOPHILS RELATIVE PERCENT 0 % (BEAKER) (test code = 432) BASOPHILS RELATIVE PERCENT 0 % (BEAKER) (test code = 437) NEUTROPHILS ABSOLUTE COUNT 5.72 K/ L 1.78-5.38 H (BEAKER) (test code = 670) LYMPHOCYTES ABSOLUTE COUNT 0.30 K/ L 1.32-3.57 L (BEAKER) (test code = 414) MONOCYTES ABSOLUTE COUNT (BEAKER) 0.51 K/ L 0.30-0.82 (test code = 415) EOSINOPHILS ABSOLUTE COUNT 0.00 K/ L 0.04-0.54 L (BEAKER) (test code = 416) BASOPHILS ABSOLUTE COUNT (BEAKER) 0.01 K/ L 0.01-0.08 (test code = 417) IMMATURE GRANULOCYTES-RELATIVE 4 % 0-1 H PERCENT (BEAKER) (test code = 2801) URIC [id number] 06:00:40 Test Item Value Reference Range Interpretation Comments URIC ACID (BEAKER) 4.1 mg/dL 2.6-7.2 Specimen slightly (test code = 773) hemolyzed [employer] ID - THOMAS MCOMPREHENSIVE METABOLIC [id number] 06:00:40 Test Item Value Reference Range Interpretation Comments TOTAL PROTEIN 6.0 gm/dL 6.0-8.3 Specimen sligh tly (BEAKER) (test hemolyzed code = 770) ALBUMIN (BEAKER) 3.6 g/dL 3.5-5.0 Specimen sl ightly (test code = 1145) hemolyzed ALKALINE 92 U/L 40-150 PHOSPHATASE (BEAKER) (test code = 346) BILIRUBIN TOTAL 0.9 mg/dL 0.2-1.2 Specimen sli ghtly (BEAKER) (test hemolyzed code = 377) SODIUM (BEAKER) 141 meq/L 136-145 (test code = 381) POTASSIUM (BEAKER) 4.1 meq/L 3.5-5.1 Specimen slightly (test code = 379) hemolyzed CHLORIDE (BEAKER) 105 meq/L 98-107 (test code = 382) CO2 (BEAKER) (test 25 meq/L 22-29 code = 355) BLOOD UREA 7 mg/dL 7-21 NITROGEN (BEAKER) (test code = 354) CREATININE 0.67 mg/dL 0.57-1.25 Specimen slight ly (BEAKER) (test hemolyzed code = 358) GLUCOSE RANDOM 142 mg/dL 70-105 H (BEAKER) (test code = 652) CALCIUM (BEAKER) 9.0 mg/dL 8.4-10.2 (test code = 697) AST (SGOT) 17 U/L 5-34 Specimen slight ly (BEAKER) (test hemolyzed code = 353) ALT (SGPT) 22 U/L 6-55 Specimen slight ly (BEAKER) (test hemolyzed code = 347) EGFR (BEAKER) 108 Interpretatio n of eGFR (test code = 1092) mL/min/1.[address] age Description sq m Result G1 Norm al or high >=90 G2 Mildly decreased 60-89 G3a Mildl y to moderately 45-5 9 G3b Moderately to s everely 30-44 G4 Severl y decreased 15-29 G5 Kidney failure <15Reported eGF R is based on the CKD-EPI 2020 equation that d oes not use a race coefficientEsti mated GFR is not as accur ate as Creatinine Maria Victoria townsend in predicting glom erular filtration rate . Estimated GFR is not appl icable for dialysis patien ts [employer] ID - THOMAS MPH, [id number] 05:51:58 Test Item Value Reference Range Interpretation Comments PH UA (BEAKER) (test code = 467) 8.5 5.0-8.0 H [employer] ID - [auto]CBC W/PLT COUNT & AUTO [id number] 05:43:54 Test Item Value Reference Range Interpretation Comments WHITE BLOOD CELL COUNT (BEAKER) 7.8 K/ L 3.5-10.5 (test code = 775) RED BLOOD CELL COUNT (BEAKER) 3.38 M/ L 4.63-6.08 L (test code = 761) HEMOGLOBIN (BEAKER) (test code = 10.2 GM/DL 13.7-17.5 L 410) HEMATOCRIT (BEAKER) (test code = 31.8 % 40.1-51.0 L 411) MEAN CORPUSCULAR VOLUME (BEAKER) 94.1 fL 79.0-92.2 H (test code = 753) MEAN CORPUSCULAR HEMOGLOBIN 30.2 pg 25.7-32.2 (BEAKER) (test code = 751) MEAN CORPUSCULAR HEMOGLOBIN CONC 32.1 GM/DL 32.3-36.5 L (BEAKER) (test code = 752) RED CELL DISTRIBUTION WIDTH 17.2 % 11.6-14.4 H (BEAKER) (test code = 412) PLATELET COUNT (BEAKER) (test 349 K/CU MM 150-450 code = 756) MEAN PLATELET VOLUME (BEAKER) 10.5 fL 9.4-12.4 (test code = 754) NUCLEATED RED BLOOD CELLS 0 /100 WBC 0-0 (BEAKER) (test code = 413) NEUTROPHILS RELATIVE PERCENT 86 % (BEAKER) (test code = 429) LYMPHOCYTES RELATIVE PERCENT 8 % (BEAKER) (test code = 430) MONOCYTES RELATIVE PERCENT 3 % (BEAKER) (test code = 431) EOSINOPHILS RELATIVE PERCENT 0 % (BEAKER) (test code = 432) BASOPHILS RELATIVE PERCENT 0 % (BEAKER) (test code = 437) NEUTROPHILS ABSOLUTE COUNT 6.76 K/ L 1.78-5.38 H (BEAKER) (test code = 670) LYMPHOCYTES ABSOLUTE COUNT 0.62 K/ L 1.32-3.57 L (BEAKER) (test code = 414) MONOCYTES ABSOLUTE COUNT (BEAKER) 0.22 K/ L 0.30-0.82 L (test code = 415) EOSINOPHILS ABSOLUTE COUNT 0.00 K/ L 0.04-0.54 L (BEAKER) (test code = 416) BASOPHILS ABSOLUTE COUNT (BEAKER) 0.02 K/ L 0.01-0.08 (test code = 417) IMMATURE GRANULOCYTES-RELATIVE 3 % 0-1 H PERCENT (BEAKER) (test code = 2801) URIC [id number] 13:38:20 Test Item Value Reference Range Interpretation Comments URIC ACID (BEAKER) 5.1 mg/dL 2.6-7.2 Specimen slightly (test code = 773) hemolyzed [employer] ID - THOMAS MPH, [id number] 09:16:35 Test Item Value Reference Range Interpretation Comments PH UA (BEAKER) (test code = 467) 8.0 5.0-8.0 [employer] ID - [auto]COMPREHENSIVE METABOLIC [id number] 08:28:59 Test Item Value Reference Range Interpretation Comments TOTAL PROTEIN 5.8 gm/dL 6.0-8.3 L Specimen sligh tly (BEAKER) (test hemolyzed code = 770) ALBUMIN (BEAKER) 3.5 g/dL 3.5-5.0 Specimen sl ightly (test code = 1145) hemolyzed ALKALINE 94 U/L 40-150 PHOSPHATASE (BEAKER) (test code = 346) BILIRUBIN TOTAL 0.5 mg/dL 0.2-1.2 Specimen sli ghtly (BEAKER) (test hemolyzed code = 377) SODIUM (BEAKER) 142 meq/L 136-145 (test code = 381) POTASSIUM (BEAKER) 3.9 meq/L 3.5-5.1 Specimen slightly (test code = 379) hemolyzed CHLORIDE (BEAKER) 107 meq/L 98-107 (test code = 382) CO2 (BEAKER) (test 26 meq/L 22-29 code = 355) BLOOD UREA 4 mg/dL 7-21 L NITROGEN (BEAKER) (test code = 354) CREATININE 0.64 mg/dL 0.57-1.25 Specimen slight ly (BEAKER) (test hemolyzed code = 358) GLUCOSE RANDOM 105 mg/dL 70-105 (BEAKER) (test code = 652) CALCIUM (BEAKER) 8.9 mg/dL 8.4-10.2 (test code = 697) AST (SGOT) 20 U/L 5-34 Specimen slight ly (BEAKER) (test hemolyzed code = 353) ALT (SGPT) 21 U/L 6-55 Specimen slight ly (BEAKER) (test hemolyzed code = 347) EGFR (BEAKER) 109 Interpretatio n of eGFR (test code = 1092) mL/min/1.[address] age Description sq m Result G1 Maximus l or high >=90 G2 Mildly decreased 60-89 G3a Mildl y to moderately 45-5 9 G3b Moderately to s everely 30-44 G4 Severl y decreased 15-29 G5 Kidney failure <15Reported eGF R is based on the CKD-EPI 2020 equation that d oes not use a race coefficientEsti mated GFR is not as accur ate as Creatinine Maria Victoria kristian in predicting glom erular filtration rate . Estimated GFR is not appl icable for dialysis patien ts [employer] ID - THOMAS [facility]BC W/PLT COUNT & AUTO [id number] 05:43:23 Test Item Value Reference Range Interpretation Comments WHITE BLOOD CELL COUNT (BEAKER) 5.0 K/ L 3.5-10.5 (test code = 775) RED BLOOD CELL COUNT (BEAKER) 3.01 M/ L 4.63-6.08 L (test code = 761) HEMOGLOBIN (BEAKER) (test code = 9.1 GM/DL 13.7-17.5 L 410) HEMATOCRIT (BEAKER) (test code = 28.2 % 40.1-51.0 L 411) MEAN CORPUSCULAR VOLUME (BEAKER) 93.7 fL 79.0-92.2 H (test code = 753) MEAN CORPUSCULAR HEMOGLOBIN 30.2 pg 25.7-32.2 (BEAKER) (test code = 751) MEAN CORPUSCULAR HEMOGLOBIN CONC 32.3 GM/DL 32.3-36.5 (BEAKER) (test code = 752) RED CELL DISTRIBUTION WIDTH 17.7 % 11.6-14.4 H (BEAKER) (test code = 412) PLATELET COUNT (BEAKER) (test 335 K/CU MM 150-450 code = 756) MEAN PLATELET VOLUME (BEAKER) 10.5 fL 9.4-12.4 (test code = 754) NUCLEATED RED BLOOD CELLS 1 /100 WBC 0-0 H (BEAKER) (test code = 413) NEUTROPHILS RELATIVE PERCENT 48 % (BEAKER) (test code = 429) LYMPHOCYTES RELATIVE PERCENT 27 % (BEAKER) (test code = 430) MONOCYTES RELATIVE PERCENT 20 % (BEAKER) (test code = 431) EOSINOPHILS RELATIVE PERCENT 0 % (BEAKER) (test code = 432) BASOPHILS RELATIVE PERCENT 3 % (BEAKER) (test code = 437) NEUTROPHILS ABSOLUTE COUNT 2.40 K/ L 1.78-5.38 (BEAKER) (test code = 670) LYMPHOCYTES ABSOLUTE COUNT 1.32 K/ L 1.32-3.57 (BEAKER) (test code = 414) MONOCYTES ABSOLUTE COUNT (BEAKER) 1.01 K/ L 0.30-0.82 H (test code = 415) EOSINOPHILS ABSOLUTE COUNT 0.01 K/ L 0.04-0.54 L (BEAKER) (test code = 416) BASOPHILS ABSOLUTE COUNT (BEAKER) 0.14 K/ L 0.01-0.08 H (test code = 417) IMMATURE GRANULOCYTES-RELATIVE 2 % 0-1 H PERCENT (BEAKER) (test code = 2801) PH, [id number] 04:07:17 Test Item Value Reference Range Interpretation Comments PH UA (BEAKER) (test code = 467) 7.0 5.0-8.0 [employer] ID - [auto]MR, BRAIN, [id number] 19:11:00Unlisted Reason for Exam - Click Yes and Enter Reason Below->Yes Unlisted Reason for Exam->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 COMPARISON: 08/08/2021 FINDINGS: There is persistent T2/FLAIR hyperintense signal within the left posterior frontal deep white matter with decreased associated mass effect. No residual enhancement. Punctate residual enhancement within the right posterior rhonda (axial postcontrast image #12).. There is persistent abnormal T2/FLAIR hyperintense signal of the right thalamic capsular region, rhonda, middle cerebellar peduncle and cerebellar hemisphere, although, mass effect is significantlydecreased compared to prior exam. Remainder the brain parenchyma demonstrates no acute findings. No restricted diffusion to suggest recent infarct. No hydrocephalus. Orbits are within normal limits. Noobstructive paranasal sinus disease. IMPRESSION:Findings compatible with treatment effect with traceminimal residual enhancement of the right rhonda. Although extensive similar, there is significant decreased mass effect related to FLAIR hyperintense signal abnormality as per above. Signed: [address] MDReport Verified Date/Time: 10/19/2021 19:11:06 [id number] 11:07:34 Test Item Value Reference Range Interpretation Comments MAGNESIUM (BEAKER) 2.0 mg/dL 1.6-2.6 Specimen slightly (test code = 627) hemolyzed [employer] ID - PIAYA LCOMPREHENSIVE METABOLIC [id number] 05:25:16 Test Item Value Reference Range Interpretation Comments TOTAL PROTEIN 6.3 gm/dL 6.0-8.3 Specimen sligh tly (BEAKER) (test hemolyzed code = 770) ALBUMIN (BEAKER) 3.5 g/dL 3.5-5.0 Specimen sl ightly (test code = 1145) hemolyzed ALKALINE 92 U/L 40-150 PHOSPHATASE (BEAKER) (test code = 346) BILIRUBIN TOTAL 0.5 mg/dL 0.2-1.2 Specimen sli ghtly (BEAKER) (test hemolyzed code = 377) SODIUM (BEAKER) 142 meq/L 136-145 (test code = 381) POTASSIUM (BEAKER) 3.7 meq/L 3.5-5.1 Specimen slightly (test code = 379) hemolyzed CHLORIDE (BEAKER) 109 meq/L 98-107 H (test code = 382) CO2 (BEAKER) (test 23 meq/L 22-29 code = 355) BLOOD UREA 6 mg/dL 7-21 L NITROGEN (BEAKER) (test code = 354) CREATININE 0.67 mg/dL 0.57-1.25 Specimen slight ly (BEAKER) (test hemolyzed code = 358) GLUCOSE RANDOM 115 mg/dL 70-105 H (BEAKER) (test code = 652) CALCIUM (BEAKER) 9.0 mg/dL 8.4-10.2 (test code = 697) AST (SGOT) 20 U/L 5-34 Specimen slight ly (BEAKER) (test hemolyzed code = 353) ALT (SGPT) 21 U/L 6-55 Specimen slight ly (BEAKER) (test hemolyzed code = 347) EGFR (BEAKER) 108 Interpretatio n of eGFR (test code = 1092) mL/min/1.[address] age Description sq m Result G1 Maximus l or high >=90 G2 Mildly decreased 60-89 G3a Mildl y to moderately 45-5 9 G3b Moderately to s everely 30-44 G4 Severl y decreased 15-29 G5 Kidney failure <15Reported eGF R is based on the CKD-EPI 2021 equation that d oes not use a race coefficientEsti mated GFR is not as accur ate as Creatinine Maria Victoria townsend in predicting glom erular filtration rate . Estimated GFR is not appl icable for dialysis patien ts [employer] ID - PIAYA LSpecimen moderately lipemicCBC W/PLT COUNT & AUTO [id number] 04:56:10 Test Item Value Reference Range Interpretation Comments WHITE BLOOD CELL COUNT (BEAKER) 5.3 K/ L 3.5-10.5 (test code = 775) RED BLOOD CELL COUNT (BEAKER) 3.21 M/ L 4.63-6.08 L (test code = 761) HEMOGLOBIN (BEAKER) (test code = 9.7 GM/DL 13.7-17.5 L 410) HEMATOCRIT (BEAKER) (test code = 30.5 % 40.1-51.0 L 411) MEAN CORPUSCULAR VOLUME (BEAKER) 95.0 fL 79.0-92.2 H (test code = 753) MEAN CORPUSCULAR HEMOGLOBIN 30.2 pg 25.7-32.2 (BEAKER) (test code = 751) MEAN CORPUSCULAR HEMOGLOBIN CONC 31.8 GM/DL 32.3-36.5 L (BEAKER) (test code = 752) RED CELL DISTRIBUTION WIDTH 18.0 % 11.6-14.4 H (BEAKER) (test code = 412) PLATELET COUNT (BEAKER) (test 407 K/CU MM 150-450 code = 756) MEAN PLATELET VOLUME (BEAKER) 10.3 fL 9.4-12.4 (test code = 754) NUCLEATED RED BLOOD CELLS 1 /100 WBC 0-0 H (BEAKER) (test code = 413) NEUTROPHILS RELATIVE PERCENT 48 % (BEAKER) (test code = 429) LYMPHOCYTES RELATIVE PERCENT 28 % (BEAKER) (test code = 430) MONOCYTES RELATIVE PERCENT 19 % (BEAKER) (test code = 431) EOSINOPHILS RELATIVE PERCENT 0 % (BEAKER) (test code = 432) BASOPHILS RELATIVE PERCENT 3 % (BEAKER) (test code = 437) NEUTROPHILS ABSOLUTE COUNT 2.54 K/ L 1.78-5.38 (BEAKER) (test code = 670) LYMPHOCYTES ABSOLUTE COUNT 1.50 K/ L 1.32-3.57 (BEAKER) (test code = 414) MONOCYTES ABSOLUTE COUNT (BEAKER) 1.01 K/ L 0.30-0.82 H (test code = 415) EOSINOPHILS ABSOLUTE COUNT 0.01 K/ L 0.04-0.54 L (BEAKER) (test code = 416) BASOPHILS ABSOLUTE COUNT (BEAKER) 0.16 K/ L 0.01-0.08 H (test code = 417) IMMATURE GRANULOCYTES-RELATIVE 1 % 0-1 PERCENT (BEAKER) (test code = 2801) Urinalysis w/[id number] 19:02:32 Test Item Value Reference Range Interpretation Comments Color, UA (test Yellow code = 5778-6) Clarity, UA (test Clear code = 5767-9) Specific [place], 1.022 1.001-1.035 UA (test code = 5811-5) pH, UA (test code 5.5 5.0-8.0 = 5803-2) Protein, UA (test Negative Negative code = 76347-9) Glucose, UA (test Negative Negative code = 365) Ketones, UA (test Negative Negative code = 2514-8) Bilirubin, UA Negative Negative (test code = 76599-0) Blood, UA (test Negative Negative code = 05361-3) Nitrite, UA (test Negative Negative code = 5802-4) Leukocytes, UA Negative Negative (test code = 5799-2) Urobilinogen, UA 0.2 mg/dL 0.2-1.0 (test code = 15973-9) RBC, UA (test 0 See_Comment [Automated code = 30895-7) message] The system which generated this result transmitted reference range : /HPF. The refer ence range was not u sed to interpret th is result as normal/abnormal . WBC, UA (test 3 See_Comment [Automated code = 5821-4) message] The system which generated this result transmitted reference range : /HPF. The refer ence range was not u sed to interpret th is result as normal/abnormal . Bacteria, UA Rare (test code = 60491-4) Mucus (test code Occasional = 8247-9) Squam Epithel, UA <1 See_Comment [Automate d (test code = message] The sy stem 07056-9) which generated this result transmitted reference range : /HPF. The refer ence range was not u sed to interpret th is result as normal/abnormal . Crystals, Urine None Seen (test code = 79098-2) Specimen Source (test code = 2795) FOREST (test code = [employer] ID - FOREST) [auto][facility] [employer] ID [facility]/[id number] 19:02:32 Test Item Value Reference Range Interpretation Comments Color, UA (test Yellow code = 5778-6) Clarity, UA (test Clear code = 5767-9) Specific [place], 1.022 1.001-1.035 UA (test code = 5811-5) pH, UA (test code 5.5 5.0-8.0 = 5803-2) Protein, UA (test Negative Negative code = 32730-3) Glucose, UA (test Negative Negative code = 365) Ketones, UA (test Negative Negative code = 2514-8) Bilirubin, UA Negative Negative (test code = 70140-2) Blood, UA (test Negative Negative code = 27248-6) Nitrite, UA (test Negative Negative code = 5802-4) Leukocytes, UA Negative Negative (test code = 5799-2) Urobilinogen, UA 0.2 mg/dL 0.2-1.0 (test code = 93055-1) RBC, UA (test 0 See_Comment [Automated code = 67541-4) message] The system which generated this result transmitted reference range : /HPF. The refer ence range was not u sed to interpret th is result as normal/abnormal . WBC, UA (test 3 See_Comment [Automated code = 5821-4) message] The system which generated this result transmitted reference range : /HPF. The refer ence range was not u sed to interpret th is result as normal/abnormal . Bacteria, UA Rare (test code = 49168-5) Mucus (test code Occasional = 8247-9) Squam Epithel, UA <1 See_Comment [Automate d (test code = message] The sy stem 11040-5) which generated this result transmitted reference range : /HPF. The refer ence range was not u sed to interpret th is result as normal/abnormal . Crystals, Urine None Seen (test code = 90458-7) Specimen Source (test code = 2795) FOREST (test code = [employer] ID - FOREST) [auto][employer] ID - tech [facility]/ [id number] 19:02:32 Test Item Value Reference Range Interpretation Comments COLOR (BEAKER) (test code = 470) Yellow CLARITY (BEAKER) (test code = 469) Clear SPECIFIC GRAVITY UA (BEAKER) (test 1.022 1.001-1.035 code = 468) PH UA (BEAKER) (test code = 467) 5.5 5.0-8.0 PROTEIN UA (BEAKER) (test code = Negative Negative 464) GLUCOSE UA (BEAKER) (test code = Negative Negative 365) KETONES UA (BEAKER) (test code = Negative Negative 371) BILIRUBIN UA (BEAKER) (test code = Negative Negative 462) BLOOD UA (BEAKER) (test code = Negative Negative 461) NITRITE UA (BEAKER) (test code = Negative Negative 465) LEUKOCYTE ESTERASE UA (BEAKER) Negative Negative (test code = 466) UROBILINOGEN UA (BEAKER) (test 0.2 mg/dL 0.2-1.0 code = 463) RBC UA (BEAKER) (test code = 519) 0 /HPF WBC UA (BEAKER) (test code = 520) 3 /HPF BACTERIA (BEAKER) (test code = Rare 517) MUCUS (BEAKER) (test code = 1574) Occasional SQUAMOUS EPITHELIAL (BEAKER) (test < /HPF code = 516) CRYSTALS, URINE (BEAKER) (test None Seen code = 1521) SOURCE(BEAKER) (test code = 2795) [employer] ID - [auto][employer] ID - techSARS-CoV2/RT-PCR ([facility]) 2021-10-18 13:10:07 Test Item Value Reference Interpretation Comments Range SARS-COV2/RT-PCR Negative Negative The SARS-Co V-2 (test code = target nucleic 25240-6) acids are not detected in thi s specimen. Negat travis results do not preclude SARS-C oV-2 infection and should not be u sed as the sole bas is for patient management decisions. Nega tive results must be combined with clinical observations, patient history , and epidemiolog ical information. A false negative result may occu r if a specimen is improperly collected, transported or handled. This S ARS CoV-2 test is a rapid, real-lidia e RT-PCR test intended for th e qualitative detection of nucleic acid fr om SARS-CoV-2 in a nasopharyngeal swab specimen collec pradeep from individual s suspected of COVID-19 by the ir healthcare provider. FOREST (test code = This test has been FOREST) authorized by FDA under an EUA for use by authorized laboratories. This test is only authorized for the duration of the declaration that circumstances exist justifying the authorization of emergency use of in vitro diagnostic tests for detection and/or diagnosis of COVID-19 under Section 564(b)(1) of the Federal Food, Drug and Cosmetic Act, 21 U.S.C. 360bbb-3(b)(1), unless the authorization is terminated or revoked sooner. Fact Sheet for Healthcare Providers: https://www.[employer]/Documents/Xp ert%20Xpress%20SAR S%20CoV-2/Fact%20S heets/302-3802%20S ARS-COV-2%20HEALTH CARE%20PROVIDERS%2 0FACT%20SHEET.pdf Fact Sheet for Healthcare Patients: https://www.[employer]/Documents/Xp ert%20Xpress%20SAR S%20CoV-2/Fact%20S heets/302-3801%20S ARS-COV-2%20PATIEN T%20FACT%20SHEET.p df Lab Interpretation Normal (test code = 98540-9) [facility])2021-10-18 13:10:07 Test Item Value Reference Interpretation Comments Range SARS-COV2/RT-PCR Negative Negative The SARS-Co V-2 (test code = target nucleic 59902-9) acids are not detected in thi s specimen. Negat travis results do not preclude SARS-C oV-2 infection and should not be u sed as the sole bas is for patient management decisions. Nega tive results must be combined with clinical observations, patient history , and epidemiolog ical information. A false negative result may occu r if a specimen is improperly collected, transported or handled. This S ARS CoV-2 test is a rapid, real-lidia e RT-PCR test intended for th e qualitative detection of nucleic acid fr om SARS-CoV-2 in a nasopharyngeal swab specimen [facility] from individual s suspected of COVID-19 by the ir healthcare provider. FOREST (test code = This test has been FOREST) authorized by FDA under an EUA for use by authorized laboratories. This test is only authorized for the duration of the declaration that circumstances exist justifying the authorization of emergency use of in vitro diagnostic tests for detection and/or diagnosis of COVID-19 under Section 564(b)(1) of the Federal Food, Drug and Cosmetic Act, 21 U.S.C. 360bbb-3(b)(1), unless the authorization is terminated or revoked sooner. Fact Sheet for Healthcare Providers: https://www.[employer]/Documents/Xp ert%20Xpress%20SAR S%20CoV-2/Fact%20S heets/302-3802%20S ARS-COV-2%20HEALTH CARE%20PROVIDERS%2 0FACT%20SHEET.pdf Fact Sheet for Healthcare Patients: https://www.[employer]/Documents/Xp ert%20Xpress%20SAR S%20CoV-2/Fact%20S heets/302-3801%20S ARS-COV-2%20PATIEN T%20FACT%20SHEET.p df Lab Interpretation Normal (test code = 86784-8) [facility])2021-10-18 13:10:07 Test Item Value Reference Range Interpretation Comments SARS-COV2/RT-PCR Negative Negative The SARS-Co V-2 target (test code = nucleic acids a re not 5417592) detected in thi s specimen. Negative result s do not preclude SARS-C oV-2 infection and s hould not be used as the gael e basis for patient managem ent decisions. Nega tive results must be combine d with clinical observ ations, patient history , and epidemiological information. A false negativ e result may occur if a spec imen is improperly anabell ected, transported or handled. This SARS CoV-2 test is a rapid, real-time RT-PC R test intended for th e qualitative detection of nu cleic acid from SARS-CoV-2 in a nasopharyngeal swab specimen collected from individuals suspected of CO VID-19 by their healthcar e provider. This test has been authorized by FDA under an EUA for use by authorized laboratories. This test is only authorized for the duration of the declaration that circumstances exist justifying the authorization of emergency use of in vitro diagnostic tests for detection and/or diagnosis of COVID-19 under Section 564(b)(1) of the Federal Food, Drug and Cosmetic Act, 21 U.S.C. 360bbb-3(b)(1), unless the authorization is terminated or revoked sooner. Fact Sheet for Healthcare Providers: https://www.cepheid.co m/Documents/Xpert%20Xpress%20SARS%20CoV-2/Fact%20Sheets/302-3802%91MYGA-NND-3%20 HEALTHCARE%20PROVIDERS%20FACT%20SHEET.pdf Fact Sheet for Healthcare Patients: https://www.[employer]/Documents/Xpert%20Xp ress%20SARS%20CoV-2/Fact%20Sheets/302-3801%76JCTM-RUW-7%20PATIENT%20FACT%20SHEET .pdfCBC W/PLT COUNT & AUTO [id number] 09:28:25 Test Item Value Reference Range Interpretation Comments WHITE BLOOD CELL COUNT (BEAKER) 41.6 K/ L 3.5-10.5 H (test code = 775) RED BLOOD CELL COUNT (BEAKER) 2.58 M/ L 4.63-6.08 L (test code = 761) HEMOGLOBIN (BEAKER) (test code = 8.0 GM/DL 13.7-17.5 L 410) HEMATOCRIT (BEAKER) (test code = 23.3 % 40.1-51.0 L 411) MEAN CORPUSCULAR VOLUME (BEAKER) 90.3 fL 79.0-92.2 (test code = 753) MEAN CORPUSCULAR HEMOGLOBIN 31.0 pg 25.7-32.2 (BEAKER) (test code = 751) MEAN CORPUSCULAR HEMOGLOBIN CONC 34.3 GM/DL 32.3-36.5 (BEAKER) (test code = 752) RED CELL DISTRIBUTION WIDTH 16.9 % 11.6-14.4 H (BEAKER) (test code = 412) PLATELET COUNT (BEAKER) (test code 38 K/CU MM 150-450 L = 756) MEAN PLATELET VOLUME (BEAKER) 11.0 fL 9.4-12.4 (test code = 754) NUCLEATED RED BLOOD CELLS (BEAKER) 0 /100 WBC 0-0 (test code = 413) (CELL[facility]ISION MANUAL DIFF)2021-10-07 09:28:25 Test Item Value Reference Range Interpretation Comments NEUTROPHILS - REL 42 % (CELLAVISION)(BEAKER) (test code = 2816) LYMPHOCYTES - REL 10 % (CELLAVISION)(BEAKER) (test code = 2817) MONOCYTES - REL 5 % (CELLAVISION)(BEAKER) (test code = 2818) EOSINOPHILS - REL 2 % (CELLAVISION)(BEAKER) (test code = 2819) METAMYELOCYTES - REL 5 % 0-0 H (CELLAVISION)(BEAKER) (test code = 2821) MYELOCYTES - REL 1 % 0-0 H (CELLAVISION)(BEAKER) (test code = 2822) PROMYELOCYTES - REL 22 % 0-0 H (CELLAVSION)(BEAKER) (test code = 2825) BANDS - REL (CELLAVISION)(BEAKER) 12 % 0-10 H (test code = 2826) BLASTS - REL 2 % 0-0 H (CELLAVISION)(BEAKER) (test code = 2827) NEUTROPHILS - ABS 17.47 K/ul 1.78-5.38 H (CELLAVISION)(BEAKER) (test code = 2830) LYMPHOCYTES - ABS 4.16 K/ul 1.32-3.57 H (CELLAVISION)(BEAKER) (test code = 2831) MONOCYTES - ABS 2.08 K/uL 0.30-0.82 H (CELLAVISION)(BEAKER) (test code = 2832) EOSINOPHILS - ABS 0.83 K/uL 0.04-0.54 H (CELLAVISION)(BEAKER) (test code = 2834) METAMYELOCYTES - ABS 2.08 K/uL 0.00-0.00 H (CELLAVISION)(BEAKER) (test code = 2836) MYELOCYTES-ABS 0.42 K/uL 0.00-0.00 H (CELLAVISION)(BEAKER) (test code = 2837) PROMYELOCYTES - ABS 9.15 K/uL 0.00-0.00 H (CELLAVISION)(BEAKER) (test code = 2838) BANDS - ABS (CELLAVISION)(BEAKER) 4.99 K/uL 0.00-0.80 H (test code = 2840) BLASTS - ABS 0.83 K/uL 0.00-0.00 H (CELLAVISION)(BEAKER) (test code = 2845) TOTAL COUNTED (BEAKER) (test code 100 = 1351) PLT MORPHOLOGY (BEAKER) (test Normal code = 486) TOXIC GRANULATION (BEAKER) (test Present code = 771) ANISOCYTOSIS (BEAKER) (test code 2+ moderate = 961) MICROCYTES (BEAKER) (test code = 2+ moderate 965) POIKILOCYTES (BEAKER) (test code 2+ moderate = 966) OVALOCYTES (BEAKER) (test code = 1+ few 477) TEAR DROP CELLS (BEAKER) (test 1+ few code = 481) ARTIFACT (CELLAVISION)(BEAKER) Present (test code = 3432) PLATELET CONCENTRATION Decreased (CELLAVISION)(BEAKER) (test code = 3438) [employer] ID - [id number] ID - Adriana OverholtUser comments: Slide comments: [id number] 07:25:14 Test Item Value Reference Range Interpretation Comments MAGNESIUM (BEAKER) (test code = 1.9 mg/dL 1.6-2.6 627) [employer] ID - THOMAS MBASIC METABOLIC [id number] 05:58:15 Test Item Value Reference Range Interpretation Comments SODIUM (BEAKER) 141 meq/L 136-145 (test code = 381) POTASSIUM 3.3 meq/L 3.5-5.1 L (BEAKER) (test code = 379) CHLORIDE (BEAKER) 109 meq/L 98-107 H (test code = 382) CO2 (BEAKER) 23 meq/L 22-29 (test code = 355) BLOOD UREA 3 mg/dL 7-21 L NITROGEN (BEAKER) (test code = 354) CREATININE 0.78 mg/dL 0.57-1.25 (BEAKER) (test code = 358) GLUCOSE RANDOM 123 mg/dL 70-105 H (BEAKER) (test code = 652) CALCIUM (BEAKER) 8.8 mg/dL 8.4-10.2 (test code = 697) EGFR (BEAKER) 104 Interpretatio n of eGFR (test code = mL/min/1.73 values Stage De scription 1092) sq m Result G1 Maximus l or high >=90 G2 Mildly decreased 60-89 G3a Mildl y to moderately 45-5 9 G3b Moderately to s everely 30-44 G4 Severl y decreased 15-29 G5 Kidney failure <15Reported eGF R is based on the CKD-EPI 2020 equation that d oes not use a race coefficientEsti mated GFR is not as accur ate as Creatinine Maria Victoria kristian in predicting glom erular filtration rate . Estimated GFR is not appl icable for dialysis patien ts [employer] ID - THOMAS MPERIPHERAL BLOOD SMEAR - PATH REVIEW LAB [id number] 12:17:28 Test Item Value Reference Range Interpretation Comments PERIPHERAL SMR Leukocytosis with myeloid REVIEW (BEAKER) left shift including (test code = 7860) occasional blasts. Thrombocytopenia with no significant platelet clumps or satellitism. Findings may be compatible with the recent history of GCSF therapy. Close follow up recommended. [id number] Lubna Padron M.D. 5 (BEAKER) (test code = 2793) (CELLAVISION MANUAL DIFF)2021-10-06 09:37:28 Test Item Value Reference Range Interpretation Comments NEUTROPHILS - REL 42 % (CELLAVISION)(BEAKER) (test code = 2816) LYMPHOCYTES - REL 8 % (CELLAVISION)(BEAKER) (test code = 2817) MONOCYTES - REL 3 % (CELLAVISION)(BEAKER) (test code = 2818) EOSINOPHILS - REL 3 % (CELLAVISION)(BEAKER) (test code = 2819) METAMYELOCYTES - REL 8 % 0-0 H (CELLAVISION)(BEAKER) (test code = 2821) MYELOCYTES - REL 9 % 0-0 H (CELLAVISION)(BEAKER) (test code = 2822) PROMYELOCYTES - REL 17 % 0-0 H (CELLAVSION)(BEAKER) (test code = 2825) BANDS - REL (CELLAVISION)(BEAKER) 9 % 0-10 (test code = 2826) BLASTS - REL (CELLAVISION)(BEAKER) 2 % 0-0 H (test code = 2827) NEUTROPHILS - ABS 14.74 K/ul 1.78-5.38 H (CELLAVISION)(BEAKER) (test code = 2830) LYMPHOCYTES - ABS 2.81 K/ul 1.32-3.57 (CELLAVISION)(BEAKER) (test code = 2831) MONOCYTES - ABS 1.05 K/uL 0.30-0.82 H (CELLAVISION)(BEAKER) (test code = 2832) EOSINOPHILS - ABS 1.05 K/uL 0.04-0.54 H (CELLAVISION)(BEAKER) (test code = 2834) METAMYELOCYTES - ABS 2.81 K/uL 0.00-0.00 H (CELLAVISION)(BEAKER) (test code = 2836) MYELOCYTES-ABS 3.16 K/uL 0.00-0.00 H (CELLAVISION)(BEAKER) (test code = 2837) PROMYELOCYTES - ABS 5.97 K/uL 0.00-0.00 H (CELLAVISION)(BEAKER) (test code = 2838) BANDS - ABS (CELLAVISION)(BEAKER) 3.16 K/uL 0.00-0.80 H (test code = 2840) BLASTS - ABS (CELLAVISION)(BEAKER) 0.70 K/uL 0.00-0.00 H (test code = 2845) TOTAL COUNTED (BEAKER) (test code 100 = 1351) PLT MORPHOLOGY (BEAKER) (test code Normal = 486) SMUDGE CELLS (BEAKER) (test code = Present 1371) TOXIC GRANULATION (BEAKER) (test Present code = 771) ANISOCYTOSIS (BEAKER) (test code = 3+ many 961) MICROCYTES (BEAKER) (test code = 3+ many 965) PLATELET CONCENTRATION Decreased (CELLAVISION)(BEAKER) (test code = 3438) [employer] ID - [id number] ID - Berry Dato-onUser comments: Slide comments: CBC W/PLT COUNT & AUTO [id number] 09:37:27 Test Item Value Reference Range Interpretation Comments WHITE BLOOD CELL COUNT (BEAKER) 35.1 K/ L 3.5-10.5 H (test code = 775) RED BLOOD CELL COUNT (BEAKER) 2.47 M/ L 4.63-6.08 L (test code = 761) HEMOGLOBIN (BEAKER) (test code = 7.5 GM/DL 13.7-17.5 L 410) HEMATOCRIT (BEAKER) (test code = 22.3 % 40.1-51.0 L 411) MEAN CORPUSCULAR VOLUME (BEAKER) 90.3 fL 79.0-92.2 (test code = 753) MEAN CORPUSCULAR HEMOGLOBIN 30.4 pg 25.7-32.2 (BEAKER) (test code = 751) MEAN CORPUSCULAR HEMOGLOBIN CONC 33.6 GM/DL 32.3-36.5 (BEAKER) (test code = 752) RED CELL DISTRIBUTION WIDTH 16.5 % 11.6-14.4 H (BEAKER) (test code = 412) PLATELET COUNT (BEAKER) (test code 23 K/CU MM 150-450 L = 756) MEAN PLATELET VOLUME (BEAKER) 10.3 fL 9.4-12.4 (test code = 754) NUCLEATED RED BLOOD CELLS (BEAKER) 0 /100 WBC 0-0 (test code = 413) METHOTREXATE [id number] 10:52:45 Test Item Value Reference Range Interpretation Comments METHOTREXATE LEVEL (BEAKER) See scanned Report (test code = 733) See scanned [id number] 07:17:05 Test Item Value Reference Range Interpretation Comments MAGNESIUM (BEAKER) (test code = 2.1 mg/dL 1.6-2.6 627) [employer] ID - SHU WCOMPREHENSIVE METABOLIC [id number] 07:17:04 Test Item Value Reference Range Interpretation Comments TOTAL PROTEIN 5.3 gm/dL 6.0-8.3 L (BEAKER) (test code = 770) ALBUMIN (BEAKER) 3.2 g/dL 3.5-5.0 L (test code = 1145) ALKALINE PHOSPHATASE 65 U/L 40-150 (BEAKER) (test code = 346) BILIRUBIN TOTAL 0.9 mg/dL 0.2-1.2 (BEAKER) (test code = 377) SODIUM (BEAKER) (test 139 meq/L 136-145 code = 381) POTASSIUM (BEAKER) 4.0 meq/L 3.5-5.1 (test code = 379) CHLORIDE (BEAKER) 106 meq/L 98-107 (test code = 382) CO2 (BEAKER) (test 27 meq/L 22-29 code = 355) BLOOD UREA NITROGEN 9 mg/dL 7-21 (BEAKER) (test code = 354) CREATININE (BEAKER) 0.60 mg/dL 0.57-1.25 (test code = 358) GLUCOSE RANDOM 187 mg/dL 70-105 H (BEAKER) (test code = 652) CALCIUM (BEAKER) 8.4 mg/dL 8.4-10.2 (test code = 697) AST (SGOT) (BEAKER) 20 U/L 5-34 (test code = 353) ALT (SGPT) (BEAKER) 35 U/L 6-55 (test code = 347) EGFR (BEAKER) (test 138 ESTIMATE D GFR IS code = 1092) mL/min/1.73 sq NOT ACCURA TE m CREATININE CLEARANCE IN PREDICTING GLOMERULAR FILTRATION RATE . ESTIMATED GFR I S NOT APPLICABLE FOR DIALYSIS PATIEN TS. [employer] ID - [facility], [id number] 07:10:38 Test Item Value Reference Range Interpretation Comments PH UA (BEAKER) (test code = 467) 8.5 5.0-8.0 H [employer] ID - [auto]CBC W/PLT COUNT & AUTO [id number] 06:10:23 Test Item Value Reference Range Interpretation Comments WHITE BLOOD CELL COUNT (BEAKER) 2.1 K/ L 3.5-10.5 L (test code = 775) RED BLOOD CELL COUNT (BEAKER) 2.79 M/ L 4.63-6.08 L (test code = 761) HEMOGLOBIN (BEAKER) (test code = 8.3 GM/DL 13.7-17.5 L 410) HEMATOCRIT (BEAKER) (test code = 25.6 % 40.1-51.0 L 411) MEAN CORPUSCULAR VOLUME (BEAKER) 91.8 fL 79.0-92.2 (test code = 753) MEAN CORPUSCULAR HEMOGLOBIN 29.7 pg 25.7-32.2 (BEAKER) (test code = 751) MEAN CORPUSCULAR HEMOGLOBIN CONC 32.4 GM/DL 32.3-36.5 (BEAKER) (test code = 752) RED CELL DISTRIBUTION WIDTH 20.8 % 11.6-14.4 H (BEAKER) (test code = 412) PLATELET COUNT (BEAKER) (test code 87 K/CU MM 150-450 L = 756) MEAN PLATELET VOLUME (BEAKER) 10.3 fL 9.4-12.4 (test code = 754) NUCLEATED RED BLOOD CELLS (BEAKER) 0 /100 WBC 0-0 (test code = 413) NEUTROPHILS RELATIVE PERCENT 94 % (BEAKER) (test code = 429) LYMPHOCYTES RELATIVE PERCENT 3 % (BEAKER) (test code = 430) MONOCYTES RELATIVE PERCENT 1 % (BEAKER) (test code = 431) EOSINOPHILS RELATIVE PERCENT 0 % (BEAKER) (test code = 432) BASOPHILS RELATIVE PERCENT 0 % (BEAKER) (test code = 437) NEUTROPHILS ABSOLUTE COUNT 2.00 K/ L 1.78-5.38 (BEAKER) (test code = 670) LYMPHOCYTES ABSOLUTE COUNT 0.07 K/ L 1.32-3.57 L (BEAKER) (test code = 414) MONOCYTES ABSOLUTE COUNT (BEAKER) 0.01 K/ L 0.30-0.82 L (test code = 415) EOSINOPHILS ABSOLUTE COUNT 0.00 K/ L 0.04-0.54 L (BEAKER) (test code = 416) BASOPHILS ABSOLUTE COUNT (BEAKER) 0.00 K/ L 0.01-0.08 L (test code = 417) IMMATURE GRANULOCYTES-RELATIVE 2 % 0-1 H PERCENT (BEAKER) (test code = 2801) COMPREHENSIVE METABOLIC [id number] 07:37:51 Test Item Value Reference Range Interpretation Comments TOTAL PROTEIN 5.3 gm/dL 6.0-8.3 L Specimen sligh tly (BEAKER) (test code = hemoly zed 770) ALBUMIN (BEAKER) 3.2 g/dL 3.5-5.0 L Specimen sl ightly (test code = 1145) hemolyzed ALKALINE PHOSPHATASE 66 U/L 40-150 (BEAKER) (test code = 346) BILIRUBIN TOTAL 0.5 mg/dL 0.2-1.2 Specimen sli ghtly (BEAKER) (test code = hemoly zed 377) SODIUM (BEAKER) (test 139 meq/L 136-145 code = 381) POTASSIUM (BEAKER) 3.2 meq/L 3.5-5.1 L Specimen slightly (test code = 379) hemolyzed CHLORIDE (BEAKER) 105 meq/L 98-107 (test code = 382) CO2 (BEAKER) (test 24 meq/L 22-29 code = 355) BLOOD UREA NITROGEN 8 mg/dL 7-21 (BEAKER) (test code = 354) CREATININE (BEAKER) 0.62 mg/dL 0.57-1.25 Specimen slightly (test code = 358) hemolyzed GLUCOSE RANDOM 123 mg/dL 70-105 H (BEAKER) (test code = 652) CALCIUM (BEAKER) 7.9 mg/dL 8.4-10.2 L (test code = 697) AST (SGOT) (BEAKER) 23 U/L 5-34 Specimen slightly (test code = 353) hemolyzed ALT (SGPT) (BEAKER) 31 U/L 6-55 Specimen slightly (test code = 347) hemolyzed EGFR (BEAKER) (test 133 ESTIMATE D GFR IS code = 1092) mL/min/1.73 sq NOT ACCURA TE m CREATININE CLEARANCE IN PREDICTING GLOMERULAR FILTRATION RATE . ESTIMATED GFR I S NOT APPLICABLE FOR DIALYSIS PATIEN TS. [employer] ID - WILLY [id number] 07:36:20 Test Item Value Reference Range Interpretation Comments MAGNESIUM (BEAKER) 2.2 mg/dL 1.6-2.6 Specimen slightly (test code = 627) hemolyzed [employer] ID - WILLY LPH, [id number] 07:07:11 Test Item Value Reference Range Interpretation Comments PH UA (BEAKER) (test code = 467) 8.5 5.0-8.0 H [employer] ID - [auto]CBC W/PLT COUNT & AUTO [id number] 05:21:49 Test Item Value Reference Range Interpretation Comments WHITE BLOOD CELL COUNT (BEAKER) 7.1 K/ L 3.5-10.5 (test code = 775) RED BLOOD CELL COUNT (BEAKER) 2.72 M/ L 4.63-6.08 L (test code = 761) HEMOGLOBIN (BEAKER) (test code = 8.4 GM/DL 13.7-17.5 L 410) HEMATOCRIT (BEAKER) (test code = 25.0 % 40.1-51.0 L 411) MEAN CORPUSCULAR VOLUME (BEAKER) 91.9 fL 79.0-92.2 (test code = 753) MEAN CORPUSCULAR HEMOGLOBIN 30.9 pg 25.7-32.2 (BEAKER) (test code = 751) MEAN CORPUSCULAR HEMOGLOBIN CONC 33.6 GM/DL 32.3-36.5 (BEAKER) (test code = 752) RED CELL DISTRIBUTION WIDTH 22.3 % 11.6-14.4 H (BEAKER) (test code = 412) PLATELET COUNT (BEAKER) (test code 90 K/CU MM 150-450 L = 756) MEAN PLATELET VOLUME (BEAKER) 10.7 fL 9.4-12.4 (test code = 754) NUCLEATED RED BLOOD CELLS (BEAKER) 0 /100 WBC 0-0 (test code = 413) NEUTROPHILS RELATIVE PERCENT 91 % (BEAKER) (test code = 429) LYMPHOCYTES RELATIVE PERCENT 5 % (BEAKER) (test code = 430) MONOCYTES RELATIVE PERCENT 4 % (BEAKER) (test code = 431) EOSINOPHILS RELATIVE PERCENT 0 % (BEAKER) (test code = 432) BASOPHILS RELATIVE PERCENT 0 % (BEAKER) (test code = 437) NEUTROPHILS ABSOLUTE COUNT 6.42 K/ L 1.78-5.38 H (BEAKER) (test code = 670) LYMPHOCYTES ABSOLUTE COUNT 0.32 K/ L 1.32-3.57 L (BEAKER) (test code = 414) MONOCYTES ABSOLUTE COUNT (BEAKER) 0.25 K/ L 0.30-0.82 L (test code = 415) EOSINOPHILS ABSOLUTE COUNT 0.01 K/ L 0.04-0.54 L (BEAKER) (test code = 416) BASOPHILS ABSOLUTE COUNT (BEAKER) 0.01 K/ L 0.01-0.08 (test code = 417) IMMATURE GRANULOCYTES-RELATIVE 1 % 0-1 PERCENT (BEAKER) (test code = 2801) COMPREHENSIVE METABOLIC [id number] 08:36:32 Test Item Value Reference Range Interpretation Comments TOTAL PROTEIN 5.5 gm/dL 6.0-8.3 L (BEAKER) (test code = 770) ALBUMIN (BEAKER) 3.3 g/dL 3.5-5.0 L (test code = 1145) ALKALINE PHOSPHATASE 70 U/L 40-150 (BEAKER) (test code = 346) BILIRUBIN TOTAL 0.7 mg/dL 0.2-1.2 (BEAKER) (test code = 377) SODIUM (BEAKER) (test 143 meq/L 136-145 code = 381) POTASSIUM (BEAKER) 3.7 meq/L 3.5-5.1 (test code = 379) CHLORIDE (BEAKER) 106 meq/L 98-107 (test code = 382) CO2 (BEAKER) (test 27 meq/L 22-29 code = 355) BLOOD UREA NITROGEN 8 mg/dL 7-21 (BEAKER) (test code = 354) CREATININE (BEAKER) 0.65 mg/dL 0.57-1.25 (test code = 358) GLUCOSE RANDOM 167 mg/dL 70-105 H (BEAKER) (test code = 652) CALCIUM (BEAKER) 8.4 mg/dL 8.4-10.2 (test code = 697) AST (SGOT) (BEAKER) 16 U/L 5-34 (test code = 353) ALT (SGPT) (BEAKER) 25 U/L 6-55 (test code = 347) EGFR (BEAKER) (test 126 ESTIMATE D GFR IS code = 1092) mL/min/1.73 sq NOT ACCURA TE m CREATININE CLEARANCE IN PREDICTING GLOMERULAR FILTRATION RATE . ESTIMATED GFR I S NOT APPLICABLE FOR DIALYSIS PATIEN TS. [employer] ID - SHU [id number] 08:36:32 Test Item Value Reference Range Interpretation Comments MAGNESIUM (BEAKER) (test code = 2.1 mg/dL 1.6-2.6 627) [employer] ID - SHU WPH, [id number] 06:50:31 Test Item Value Reference Range Interpretation Comments PH UA (BEAKER) (test code = 467) 8.0 5.0-8.0 [employer] ID - [auto]CBC W/PLT COUNT & AUTO [id number] 06:07:03 Test Item Value Reference Range Interpretation Comments WHITE BLOOD CELL COUNT (BEAKER) 7.6 K/ L 3.5-10.5 (test code = 775) RED BLOOD CELL COUNT (BEAKER) 2.88 M/ L 4.63-6.08 L (test code = 761) HEMOGLOBIN (BEAKER) (test code = 8.8 GM/DL 13.7-17.5 L 410) HEMATOCRIT (BEAKER) (test code = 26.4 % 40.1-51.0 L 411) MEAN CORPUSCULAR VOLUME (BEAKER) 91.7 fL 79.0-92.2 (test code = 753) MEAN CORPUSCULAR HEMOGLOBIN 30.6 pg 25.7-32.2 (BEAKER) (test code = 751) MEAN CORPUSCULAR HEMOGLOBIN CONC 33.3 GM/DL 32.3-36.5 (BEAKER) (test code = 752) RED CELL DISTRIBUTION WIDTH 22.2 % 11.6-14.4 H (BEAKER) (test code = 412) PLATELET COUNT (BEAKER) (test 115 K/CU MM 150-450 L code = 756) MEAN PLATELET VOLUME (BEAKER) 11.0 fL 9.4-12.4 (test code = 754) NUCLEATED RED BLOOD CELLS 0 /100 WBC 0-0 (BEAKER) (test code = 413) NEUTROPHILS RELATIVE PERCENT 90 % (BEAKER) (test code = 429) LYMPHOCYTES RELATIVE PERCENT 3 % (BEAKER) (test code = 430) MONOCYTES RELATIVE PERCENT 5 % (BEAKER) (test code = 431) EOSINOPHILS RELATIVE PERCENT 0 % (BEAKER) (test code = 432) BASOPHILS RELATIVE PERCENT 0 % (BEAKER) (test code = 437) NEUTROPHILS ABSOLUTE COUNT 6.86 K/ L 1.78-5.38 H (BEAKER) (test code = 670) LYMPHOCYTES ABSOLUTE COUNT 0.24 K/ L 1.32-3.57 L (BEAKER) (test code = 414) MONOCYTES ABSOLUTE COUNT (BEAKER) 0.36 K/ L 0.30-0.82 (test code = 415) EOSINOPHILS ABSOLUTE COUNT 0.00 K/ L 0.04-0.54 L (BEAKER) (test code = 416) BASOPHILS ABSOLUTE COUNT (BEAKER) 0.01 K/ L 0.01-0.08 (test code = 417) IMMATURE GRANULOCYTES-RELATIVE 2 % 0-1 H PERCENT (BEAKER) (test code = 2801) PH, [id number] 10:30:53 Test Item Value Reference Range Interpretation Comments PH UA (BEAKER) (test code = 467) 8.5 5.0-8.0 H [employer] ID - [auto]COMPREHENSIVE METABOLIC [id number] 07:11:55 Test Item Value Reference Range Interpretation Comments TOTAL PROTEIN 6.0 gm/dL 6.0-8.3 (BEAKER) (test code = 770) ALBUMIN (BEAKER) 3.6 g/dL 3.5-5.0 (test code = 1145) ALKALINE PHOSPHATASE 88 U/L 40-150 (BEAKER) (test code = 346) BILIRUBIN TOTAL 1.1 mg/dL 0.2-1.2 (BEAKER) (test code = 377) SODIUM (BEAKER) (test 143 meq/L 136-145 code = 381) POTASSIUM (BEAKER) 3.8 meq/L 3.5-5.1 (test code = 379) CHLORIDE (BEAKER) 105 meq/L 98-107 (test code = 382) CO2 (BEAKER) (test 29 meq/L 22-29 code = 355) BLOOD UREA NITROGEN 5 mg/dL 7-21 L (BEAKER) (test code = 354) CREATININE (BEAKER) 0.74 mg/dL 0.57-1.25 (test code = 358) GLUCOSE RANDOM 175 mg/dL 70-105 H (BEAKER) (test code = 652) CALCIUM (BEAKER) 8.9 mg/dL 8.4-10.2 (test code = 697) AST (SGOT) (BEAKER) 16 U/L 5-34 (test code = 353) ALT (SGPT) (BEAKER) 31 U/L 6-55 (test code = 347) EGFR (BEAKER) (test 109 ESTIMATE D GFR IS code = 1092) mL/min/1.73 sq NOT ACCURA TE m CREATININE CLEARANCE IN PREDICTING GLOMERULAR FILTRATION RATE . ESTIMATED GFR I S NOT APPLICABLE FOR DIALYSIS PATIEN TS. [employer] ID - ROCKY [id number] 07:11:55 Test Item Value Reference Range Interpretation Comments MAGNESIUM (BEAKER) (test code = 1.6 mg/dL 1.6-2.6 627) [employer] ID - ROCKY GCBC W/PLT COUNT & AUTO [id number] 07:01:09 Test Item Value Reference Range Interpretation Comments WHITE BLOOD CELL COUNT (BEAKER) 9.0 K/ L 3.5-10.5 (test code = 775) RED BLOOD CELL COUNT (BEAKER) 3.28 M/ L 4.63-6.08 L (test code = 761) HEMOGLOBIN (BEAKER) (test code = 9.6 GM/DL 13.7-17.5 L 410) HEMATOCRIT (BEAKER) (test code = 29.3 % 40.1-51.0 L 411) MEAN CORPUSCULAR VOLUME (BEAKER) 89.3 fL 79.0-92.2 (test code = 753) MEAN CORPUSCULAR HEMOGLOBIN 29.3 pg 25.7-32.2 (BEAKER) (test code = 751) MEAN CORPUSCULAR HEMOGLOBIN CONC 32.8 GM/DL 32.3-36.5 (BEAKER) (test code = 752) RED CELL DISTRIBUTION WIDTH 21.9 % 11.6-14.4 H (BEAKER) (test code = 412) PLATELET COUNT (BEAKER) (test 148 K/CU MM 150-450 L code = 756) MEAN PLATELET VOLUME (BEAKER) 10.5 fL 9.4-12.4 (test code = 754) NUCLEATED RED BLOOD CELLS 0 /100 WBC 0-0 (BEAKER) (test code = 413) NEUTROPHILS RELATIVE PERCENT 83 % (BEAKER) (test code = 429) LYMPHOCYTES RELATIVE PERCENT 9 % (BEAKER) (test code = 430) MONOCYTES RELATIVE PERCENT 2 % (BEAKER) (test code = 431) EOSINOPHILS RELATIVE PERCENT 0 % (BEAKER) (test code = 432) BASOPHILS RELATIVE PERCENT 1 % (BEAKER) (test code = 437) NEUTROPHILS ABSOLUTE COUNT 7.38 K/ L 1.78-5.38 H (BEAKER) (test code = 670) LYMPHOCYTES ABSOLUTE COUNT 0.81 K/ L 1.32-3.57 L (BEAKER) (test code = 414) MONOCYTES ABSOLUTE COUNT (BEAKER) 0.17 K/ L 0.30-0.82 L (test code = 415) EOSINOPHILS ABSOLUTE COUNT 0.03 K/ L 0.04-0.54 L (BEAKER) (test code = 416) BASOPHILS ABSOLUTE COUNT (BEAKER) 0.11 K/ L 0.01-0.08 H (test code = 417) IMMATURE GRANULOCYTES-RELATIVE 5 % 0-1 H PERCENT (BEAKER) (test code = 2801) PH, [id number] 11:30:00 Test Item Value Reference Range Interpretation Comments PH UA (BEAKER) (test code = 467) 7.0 5.0-8.0 COMPREHENSIVE METABOLIC [id number] 08:44:16 Test Item Value Reference Range Interpretation Comments TOTAL PROTEIN 6.2 gm/dL 6.0-8.3 Specimen sligh tly (BEAKER) (test code = hemoly zed 770) ALBUMIN (BEAKER) 3.2 g/dL 3.5-5.0 L Specimen sl ightly (test code = 1145) hemolyzed ALKALINE PHOSPHATASE 88 U/L 40-150 (BEAKER) (test code = 346) BILIRUBIN TOTAL 0.5 mg/dL 0.2-1.2 Specimen sli ghtly (BEAKER) (test code = hemoly zed 377) SODIUM (BEAKER) (test 141 meq/L 136-145 code = 381) POTASSIUM (BEAKER) 3.6 meq/L 3.5-5.1 Specimen slightly (test code = 379) hemolyzed CHLORIDE (BEAKER) 110 meq/L 98-107 H (test code = 382) CO2 (BEAKER) (test 18 meq/L 22-29 L code = 355) BLOOD UREA NITROGEN 4 mg/dL 7-21 L (BEAKER) (test code = 354) CREATININE (BEAKER) 0.67 mg/dL 0.57-1.25 Specimen slightly (test code = 358) hemolyzed GLUCOSE RANDOM 125 mg/dL 70-105 H (BEAKER) (test code = 652) CALCIUM (BEAKER) 8.4 mg/dL 8.4-10.2 (test code = 697) AST (SGOT) (BEAKER) 17 U/L 5-34 Specimen slightly (test code = 353) hemolyzed ALT (SGPT) (BEAKER) 30 U/L 6-55 Specimen slightly (test code = 347) hemolyzed EGFR (BEAKER) (test 122 ESTIMATE D GFR IS code = 1092) mL/min/1.73 sq NOT ACCURA TE m CREATININE CLEARANCE IN PREDICTING GLOMERULAR FILTRATION RATE . ESTIMATED GFR I S NOT APPLICABLE FOR DIALYSIS PATIEN TS. [employer] ID - PIAYA LSpecimen markedly [id number] 08:44:15 Test Item Value Reference Range Interpretation Comments MAGNESIUM (BEAKER) 1.6 mg/dL 1.6-2.6 Specimen slightly (test code = 627) hemolyzed [employer] ID - PIAYA LURIC [id number] 08:44:15 Test Item Value Reference Range Interpretation Comments URIC ACID (BEAKER) 5.9 mg/dL 2.6-7.2 Specimen slightly (test code = 773) hemolyzed [employer] ID - WILLY LSpecimen markedly lipemicPH, [id number] 08:02:45 Test Item Value Reference Range Interpretation Comments PH UA (BEAKER) (test code = 467) 5.0 5.0-8.0 [employer] ID - [auto]CBC W/PLT COUNT & AUTO [id number] 05:32:49 Test Item Value Reference Range Interpretation Comments WHITE BLOOD CELL COUNT (BEAKER) 6.5 K/ L 3.5-10.5 (test code = 775) RED BLOOD CELL COUNT (BEAKER) 2.93 M/ L 4.63-6.08 L (test code = 761) HEMOGLOBIN (BEAKER) (test code = 9.3 GM/DL 13.7-17.5 L 410) HEMATOCRIT (BEAKER) (test code = 27.1 % 40.1-51.0 L 411) MEAN CORPUSCULAR VOLUME (BEAKER) 92.5 fL 79.0-92.2 H (test code = 753) MEAN CORPUSCULAR HEMOGLOBIN 31.7 pg 25.7-32.2 (BEAKER) (test code = 751) MEAN CORPUSCULAR HEMOGLOBIN CONC 34.3 GM/DL 32.3-36.5 (BEAKER) (test code = 752) RED CELL DISTRIBUTION WIDTH 22.9 % 11.6-14.4 H (BEAKER) (test code = 412) PLATELET COUNT (BEAKER) (test 172 K/CU MM 150-450 code = 756) MEAN PLATELET VOLUME (BEAKER) 10.5 fL 9.4-12.4 (test code = 754) NUCLEATED RED BLOOD CELLS 0 /100 WBC 0-0 (BEAKER) (test code = 413) NEUTROPHILS RELATIVE PERCENT 57 % (BEAKER) (test code = 429) LYMPHOCYTES RELATIVE PERCENT 24 % (BEAKER) (test code = 430) MONOCYTES RELATIVE PERCENT 10 % (BEAKER) (test code = 431) EOSINOPHILS RELATIVE PERCENT 3 % (BEAKER) (test code = 432) BASOPHILS RELATIVE PERCENT 3 % (BEAKER) (test code = 437) NEUTROPHILS ABSOLUTE COUNT 3.71 K/ L 1.78-5.38 (BEAKER) (test code = 670) LYMPHOCYTES ABSOLUTE COUNT 1.52 K/ L 1.32-3.57 (BEAKER) (test code = 414) MONOCYTES ABSOLUTE COUNT (BEAKER) 0.62 K/ L 0.30-0.82 (test code = 415) EOSINOPHILS ABSOLUTE COUNT 0.18 K/ L 0.04-0.54 (BEAKER) (test code = 416) BASOPHILS ABSOLUTE COUNT (BEAKER) 0.22 K/ L 0.01-0.08 H (test code = 417) IMMATURE GRANULOCYTES-RELATIVE 3 % 0-1 H PERCENT (BEAKER) (test code = 2801) [id number] 19:59:13 Test Item Value Reference Range Interpretation Comments MAGNESIUM (BEAKER) (test code = 1.7 mg/dL 1.6-2.6 627) [facility] [employer] ID - JONGAYA LPH, [id number] 17:28:05 Test Item Value Reference Range Interpretation Comments PH UA (BEAKER) (test code = 467) 5.0 5.0-8.0 [employer] ID - [auto]RAD, CHEST, 1 VIEW, NON [id number] 15:57:00Reason for exam:->PICC LINE PLACEMENTShould this be performed at the bedside?->Yes [facility] : 1965 Sex: MFINAL REPORT Chest, 1 view, 09/21/2021 3:54 PM. History: PICC placement. Comparison: 08/15/2021. Discussion: A new left upper extremity PICC terminates in the region of the proximal SVC. The cardiomediastinal silhouette and pulmonary vasculature are within normal limits for a portable exam. The lungs are clear without evidence of consolidation or effusion. The soft tissues and osseous structures are intact. IMPRESSION: No acute cardiopulmonary abnormality. PICC is in adequate position. Signed: Iraj Ferraraeport Verified Date/Time: 09/21/2021 15:57:52 COMPREHENSIVE METABOLIC [id number] 14:00:51 Test Item Value Reference Range Interpretation Comments TOTAL PROTEIN 6.3 gm/dL 6.0-8.3 (BEAKER) (test code = 770) ALBUMIN (BEAKER) 3.8 g/dL 3.5-5.0 (test code = 1145) ALKALINE PHOSPHATASE 101 U/L 40-150 (BEAKER) (test code = 346) BILIRUBIN TOTAL 0.7 mg/dL 0.2-1.2 (BEAKER) (test code = 377) SODIUM (BEAKER) (test 142 meq/L 136-145 code = 381) POTASSIUM (BEAKER) 3.3 meq/L 3.5-5.1 L (test code = 379) CHLORIDE (BEAKER) 111 meq/L 98-107 H (test code = 382) CO2 (BEAKER) (test 22 meq/L 22-29 code = 355) BLOOD UREA NITROGEN 8 mg/dL 7-21 (BEAKER) (test code = 354) CREATININE (BEAKER) 0.82 mg/dL 0.57-1.25 (test code = 358) GLUCOSE RANDOM 131 mg/dL 70-105 H (BEAKER) (test code = 652) CALCIUM (BEAKER) 8.8 mg/dL 8.4-10.2 (test code = 697) AST (SGOT) (BEAKER) 25 U/L 5-34 (test code = 353) ALT (SGPT) (BEAKER) 40 U/L 6-55 (test code = 347) EGFR (BEAKER) (test 96 mL/min/1.73 ESTIMA PRADEEP GFR IS code = 1092) sq m NOT ACCURATE CREATININE CLEARANCE IN PREDICTING GLOMERULAR FILTRATION RATE . ESTIMATED GFR I S NOT APPLICABLE FOR DIALYSIS PATIEN TS. [employer] ID - ADMINURIC [id number] 14:00:51 Test Item Value Reference Range Interpretation Comments URIC ACID (BEAKER) (test code = 6.8 mg/dL 2.6-7.2 773) [employer] ID - ADMINCBC W/PLT COUNT & AUTO [id number] 13:36:47 Test Item Value Reference Range Interpretation Comments WHITE BLOOD CELL COUNT (BEAKER) 9.2 K/ L 3.5-10.5 (test code = 775) RED BLOOD CELL COUNT (BEAKER) 3.28 M/ L 4.63-6.08 L (test code = 761) HEMOGLOBIN (BEAKER) (test code = 9.6 GM/DL 13.7-17.5 L 410) HEMATOCRIT (BEAKER) (test code = 29.8 % 40.1-51.0 L 411) MEAN CORPUSCULAR VOLUME (BEAKER) 90.9 fL 79.0-92.2 (test code = 753) MEAN CORPUSCULAR HEMOGLOBIN 29.3 pg 25.7-32.2 (BEAKER) (test code = 751) MEAN CORPUSCULAR HEMOGLOBIN CONC 32.2 GM/DL 32.3-36.5 L (BEAKER) (test code = 752) RED CELL DISTRIBUTION WIDTH 22.7 % 11.6-14.4 H (BEAKER) (test code = 412) PLATELET COUNT (BEAKER) (test 197 K/CU MM 150-450 code = 756) MEAN PLATELET VOLUME (BEAKER) 10.5 fL 9.4-12.4 (test code = 754) NUCLEATED RED BLOOD CELLS 0 /100 WBC 0-0 (BEAKER) (test code = 413) NEUTROPHILS RELATIVE PERCENT 68 % (BEAKER) (test code = 429) LYMPHOCYTES RELATIVE PERCENT 17 % (BEAKER) (test code = 430) MONOCYTES RELATIVE PERCENT 9 % (BEAKER) (test code = 431) EOSINOPHILS RELATIVE PERCENT 1 % (BEAKER) (test code = 432) BASOPHILS RELATIVE PERCENT 3 % (BEAKER) (test code = 437) NEUTROPHILS ABSOLUTE COUNT 6.30 K/ L 1.78-5.38 H (BEAKER) (test code = 670) LYMPHOCYTES ABSOLUTE COUNT 1.53 K/ L 1.32-3.57 (BEAKER) (test code = 414) MONOCYTES ABSOLUTE COUNT (BEAKER) 0.85 K/ L 0.30-0.82 H (test code = 415) EOSINOPHILS ABSOLUTE COUNT 0.11 K/ L 0.04-0.54 (BEAKER) (test code = 416) BASOPHILS ABSOLUTE COUNT (BEAKER) 0.23 K/ L 0.01-0.08 H (test code = 417) IMMATURE GRANULOCYTES-RELATIVE 2 % 0-1 H PERCENT (BEAKER) (test code = 2801) PROTHROMBIN [id number] 13:36:23 Test Item Value Reference Range Interpretation Comments PROTIME (BEAKER) 14.5 seconds 11.9-14.2 H (test code = 759) INR (BEAKER) (test 1.15 See_Comment [Automat ed message] code = 370) The system [employer] generated this result transmitted ref erence range: <=5.90. The reference range was not used to int erpret this result as normal/abnormal . RECOMMENDED COUMADIN/WARFARIN INR THERAPY RANGESSTANDARD DOSE: 2.0 - 3.0 Includes: PROPHYLAXIS for venous thrombosis, systemic embolization; TREATMENT for venous thrombosis and/or pulmonary embolus.HIGH RISK: Target INR is 2.5-3.5 for patients with mechanical heart valves.BASIC METABOLIC [id number] 05:44:02 Test Item Value Reference Range Interpretation Comments SODIUM (BEAKER) 139 meq/L 136-145 (test code = 381) POTASSIUM (BEAKER) 4.5 meq/L 3.5-5.1 (test code = 379) CHLORIDE (BEAKER) 105 meq/L 98-107 (test code = 382) CO2 (BEAKER) (test 25 meq/L 22-29 code = 355) BLOOD UREA NITROGEN 6 mg/dL 7-21 L (BEAKER) (test code = 354) CREATININE (BEAKER) 0.64 mg/dL 0.57-1.25 (test code = 358) GLUCOSE RANDOM 124 mg/dL 70-105 H (BEAKER) (test code = 652) CALCIUM (BEAKER) 9.8 mg/dL 8.4-10.2 (test code = 697) EGFR (BEAKER) (test 128 mL/min/1.73 ESTIM ATED GFR IS code = 1092) sq m NOT ACCURATE CREATININE CLEARANCE IN PREDICTING GLOMERULAR FILTRATION RATE . ESTIMATED GFR I S NOT APPLICABLE FOR DIALYSIS PATIEN TS. [employer] ID - PIAYA LCBC (HEMOGRAM ONLY)2021-09-12 05:43:51 Test Item Value Reference Range Interpretation Comments WHITE BLOOD CELL COUNT (BEAKER) 19.9 K/ L 3.5-10.5 H (test code = 775) RED BLOOD CELL COUNT (BEAKER) 3.61 M/ L 4.63-6.08 L (test code = 761) HEMOGLOBIN (BEAKER) (test code = 10.3 GM/DL 13.7-17.5 L 410) HEMATOCRIT (BEAKER) (test code = 32.4 % 40.1-51.0 L 411) MEAN CORPUSCULAR VOLUME (BEAKER) 89.8 fL 79.0-92.2 (test code = 753) MEAN CORPUSCULAR HEMOGLOBIN 28.5 pg 25.7-32.2 (BEAKER) (test code = 751) MEAN CORPUSCULAR HEMOGLOBIN CONC 31.8 GM/DL 32.3-36.5 L (BEAKER) (test code = 752) RED CELL DISTRIBUTION WIDTH 23.5 % 11.6-14.4 H (BEAKER) (test code = 412) PLATELET COUNT (BEAKER) (test 734 K/CU MM 150-450 H code = 756) MEAN PLATELET VOLUME (BEAKER) 9.6 fL 9.4-12.4 (test code = 754) NUCLEATED RED BLOOD CELLS 1 /100 WBC 0-0 H (BEAKER) (test code = 413) SARS-COV2/RT-PCR ([facility])2021-09-12 02:20:19 Test Item Value Reference Range Interpretation Comments SARS-COV2/RT-PCR (test Negative Not Detected, Negative, code = 8534956) See external report for linked test SARS-COV-2 PERFORMING LAB [facility] (test code = 8675718) Negative result for this test determines that SARS-CoV-2 RNA was not present in the specimen above the Limit of Detection (LOD). However, Negative results do not preclude SARS-CoV-2 infection and should not be used as the sole basis for treatment or patient management decisions. Negative results must be combined with clinical observations, patient history, and epidemiological information. A false negative result may occur if a specimen is improperly collected, transported or handled. A false negative result should be considered if patient's recent exposures or clinical presentation indicate that COVID-19 (SARS-CoV-2) is likely and diagnostic tests for other causes of illness are negative. Re-testing should be considered in cases of suspected false negatives.The limit of detection for this assay is 800 copies/mL.This SARS CoV-2 test is a real-time RT-PCR test intended for the qualitative detection of nucleic acid from SARS-CoV-2 in a nasopharyngeal swab specimen collected from individuals suspected of COVID-19 by their healthcare provider.This test has not been Food and Drug Administration (FDA) cleared or approved. This is a modified version of an approved Emergency Use Authorization (EUA) and is in the process of review by the FDA. Once authorized by the FDA, the issued EUA will be effective until the declaration that circumstances exist justifying the authorization of the emergency use ofin vitro diagnostic tests for detection and/or diagnosis of COVID-19 is terminated under Section 564(b)(2) of the Act or the EUA is revoked under Section 564(g) of the Act.Fact Sheet for Healthcare Prov iders:https://www.[employer]/sites/default/files/product/documents/Fact_Sheet_HC _Hysrnoqqi_Polq_SEWH-JvN-2.pdfFact Sheet for Healthcare Patients:https://www.[employer]/sites/default/files/product/docume nts/Fypi_Ceobp_Gwvtjmcg_Djqf_YNYI-MzW-7.pdfPerforming Laboratory:[facility] [place] [address](CELLAVISION MANUAL DIFF) 2021-09-10 11:53:27 Test Item Value Reference Range Interpretation Comments NEUTROPHILS - REL 57 % (CELLAVISION)(BEAKER) (test code = 2816) LYMPHOCYTES - REL 19 % (CELLAVISION)(BEAKER) (test code = 2817) MONOCYTES - REL 8 % (CELLAVISION)(BEAKER) (test code = 2818) BASOPHILS - REL 1 % (CELLAVISION)(BEAKER) (test code = 2820) METAMYELOCYTES - REL 3 % 0-0 H (CELLAVISION)(BEAKER) (test code = 2821) MYELOCYTES - REL 8 % 0-0 H (CELLAVISION)(BEAKER) (test code = 2822) BANDS - REL (CELLAVISION)(BEAKER) 3 % 0-10 (test code = 2826) ATYPICAL LYMPHOCYTES - REL 1 % 0-0 H (CELLAVISION)(BEAKER) (test code = 2829) NEUTROPHILS - ABS 12.48 K/ul 1.78-5.38 H (CELLAVISION)(BEAKER) (test code = 2830) LYMPHOCYTES - ABS 4.16 K/ul 1.32-3.57 H (CELLAVISION)(BEAKER) (test code = 2831) MONOCYTES - ABS 1.75 K/uL 0.30-0.82 H (CELLAVISION)(BEAKER) (test code = 2832) BASOPHILS - ABS 0.22 K/uL 0.01-0.08 H (CELLAVISION)(BEAKER) (test code = 2835) METAMYELOCYTES - ABS 0.66 K/uL 0.00-0.00 H (CELLAVISION)(BEAKER) (test code = 2836) MYELOCYTES-ABS 1.75 K/uL 0.00-0.00 H (CELLAVISION)(BEAKER) (test code = 2837) BANDS - ABS (CELLAVISION)(BEAKER) 0.66 K/uL 0.00-0.80 (test code = 2840) ATYPICAL LYMPHOCYTES - ABS 0.22 K/uL 0.00-0.00 H (CELLAVISION)(BEAKER) (test code = 2858) TOTAL COUNTED (BEAKER) (test code 100 = 1351) WBC MORPHOLOGY (BEAKER) (test Normal code = 487) PLT MORPHOLOGY (BEAKER) (test Normal code = 486) POLYCHROMATOPHILLIC RBCS(BEAKER) 1+ few (test code = 478) ANISOCYTOSIS (BEAKER) (test code 2+ moderate = 961) MICROCYTES (BEAKER) (test code = 2+ moderate 965) POIKILOCYTES (BEAKER) (test code 1+ few = 966) OVALOCYTES (BEAKER) (test code = 1+ few 477) TEAR DROP CELLS (BEAKER) (test 1+ few code = 481) CBC W/PLT COUNT & AUTO [id number] 11:53:26 Test Item Value Reference Range Interpretation Comments WHITE BLOOD CELL COUNT (BEAKER) 21.9 K/ L 3.5-10.5 H (test code = 775) RED BLOOD CELL COUNT (BEAKER) 3.34 M/ L 4.63-6.08 L (test code = 761) HEMOGLOBIN (BEAKER) (test code = 9.4 GM/DL 13.7-17.5 L 410) HEMATOCRIT (BEAKER) (test code = 29.6 % 40.1-51.0 L 411) MEAN CORPUSCULAR VOLUME (BEAKER) 88.6 fL 79.0-92.2 (test code = 753) MEAN CORPUSCULAR HEMOGLOBIN 28.1 pg 25.7-32.2 (BEAKER) (test code = 751) MEAN CORPUSCULAR HEMOGLOBIN CONC 31.8 GM/DL 32.3-36.5 L (BEAKER) (test code = 752) RED CELL DISTRIBUTION WIDTH 23.4 % 11.6-14.4 H (BEAKER) (test code = 412) PLATELET COUNT (BEAKER) (test 1014 K/CU MM 150-450 H code = 756) MEAN PLATELET VOLUME (BEAKER) 9.3 fL 9.4-12.4 L (test code = 754) NUCLEATED RED BLOOD CELLS 1 /100 WBC 0-0 H (BEAKER) (test code = 413) BASIC METABOLIC [id number] 06:35:28 Test Item Value Reference Range Interpretation Comments SODIUM (BEAKER) 140 meq/L 136-145 (test code = 381) POTASSIUM (BEAKER) 4.1 meq/L 3.5-5.1 (test code = 379) CHLORIDE (BEAKER) 108 meq/L 98-107 H (test code = 382) CO2 (BEAKER) (test 20 meq/L 22-29 L code = 355) BLOOD UREA NITROGEN 5 mg/dL 7-21 L (BEAKER) (test code = 354) CREATININE (BEAKER) 0.64 mg/dL 0.57-1.25 (test code = 358) GLUCOSE RANDOM 132 mg/dL 70-105 H (BEAKER) (test code = 652) CALCIUM (BEAKER) 8.9 mg/dL 8.4-10.2 (test code = 697) EGFR (BEAKER) (test 128 mL/min/1.73 ESTIM ATED GFR IS code = 1092) sq m NOT ACCURATE CREATININE CLEARANCE IN PREDICTING GLOMERULAR FILTRATION RATE . ESTIMATED GFR I S NOT APPLICABLE FOR DIALYSIS PATIEN TS. [employer] ID - THOMAS MBASIC METABOLIC [id number] 09:06:43 Test Item Value Reference Range Interpretation Comments SODIUM (BEAKER) 140 meq/L 136-145 (test code = 381) POTASSIUM (BEAKER) 4.1 meq/L 3.5-5.1 Specimen slightly (test code = 379) hemolyzed CHLORIDE (BEAKER) 105 meq/L 98-107 (test code = 382) CO2 (BEAKER) (test 23 meq/L 22-29 code = 355) BLOOD UREA NITROGEN 4 mg/dL 7-21 L (BEAKER) (test code = 354) CREATININE (BEAKER) 0.66 mg/dL 0.57-1.25 Specimen slightly (test code = 358) hemolyzed GLUCOSE RANDOM 104 mg/dL 70-105 (BEAKER) (test code = 652) CALCIUM (BEAKER) 8.8 mg/dL 8.4-10.2 (test code = 697) EGFR (BEAKER) (test 124 mL/min/1.73 ESTIM ATED GFR IS code = 1092) sq m NOT ACCURATE CREATININE CLEARANCE IN PREDICTING GLOMERULAR FILTRATION RATE . ESTIMATED GFR I S NOT APPLICABLE FOR DIALYSIS PATIEN TS. [employer] ID - THOMAS MCBC W/PLT COUNT & AUTO [id number] 09:00:22 Test Item Value Reference Range Interpretation Comments WHITE BLOOD CELL COUNT (BEAKER) 21.4 K/ L 3.5-10.5 H (test code = 775) RED BLOOD CELL COUNT (BEAKER) 3.46 M/ L 4.63-6.08 L (test code = 761) HEMOGLOBIN (BEAKER) (test code = 9.5 GM/DL 13.7-17.5 L 410) HEMATOCRIT (BEAKER) (test code = 30.3 % 40.1-51.0 L 411) MEAN CORPUSCULAR VOLUME (BEAKER) 87.6 fL 79.0-92.2 (test code = 753) MEAN CORPUSCULAR HEMOGLOBIN 27.5 pg 25.7-32.2 (BEAKER) (test code = 751) MEAN CORPUSCULAR HEMOGLOBIN CONC 31.4 GM/DL 32.3-36.5 L (BEAKER) (test code = 752) RED CELL DISTRIBUTION WIDTH 23.7 % 11.6-14.4 H (BEAKER) (test code = 412) PLATELET COUNT (BEAKER) (test 1229 K/CU MM 150-450 H code = 756) MEAN PLATELET VOLUME (BEAKER) 9.1 fL 9.4-12.4 L (test code = 754) NUCLEATED RED BLOOD CELLS 1 /100 WBC 0-0 H (BEAKER) (test code = 413) (CELLAVISION MANUAL DIFF)2021-09-09 09:00:22 Test Item Value Reference Range Interpretation Comments NEUTROPHILS - REL 49 % (CELLAVISION)(BEAKER) (test code = 2816) LYMPHOCYTES - REL 14 % (CELLAVISION)(BEAKER) (test code = 2817) MONOCYTES - REL 14 % (CELLAVISION)(BEAKER) (test code = 2818) BASOPHILS - REL 1 % (CELLAVISION)(BEAKER) (test code = 2820) METAMYELOCYTES - REL 1 % 0-0 H (CELLAVISION)(BEAKER) (test code = 2821) MYELOCYTES - REL 5 % 0-0 H (CELLAVISION)(BEAKER) (test code = 2822) PROMYELOCYTES - REL 1 % 0-0 H (CELLAVSION)(BEAKER) (test code = 2825) BANDS - REL (CELLAVISION)(BEAKER) 13 % 0-10 H (test code = 2826) BLASTS - REL 1 % 0-0 H (CELLAVISION)(BEAKER) (test code = 2827) NEUTROPHILS - ABS 10.49 K/ul 1.78-5.38 H (CELLAVISION)(BEAKER) (test code = 2830) LYMPHOCYTES - ABS 3.00 K/ul 1.32-3.57 (CELLAVISION)(BEAKER) (test code = 2831) MONOCYTES - ABS 3.00 K/uL 0.30-0.82 H (CELLAVISION)(BEAKER) (test code = 2832) BASOPHILS - ABS 0.21 K/uL 0.01-0.08 H (CELLAVISION)(BEAKER) (test code = 2835) METAMYELOCYTES - ABS 0.21 K/uL 0.00-0.00 H (CELLAVISION)(BEAKER) (test code = 2836) MYELOCYTES-ABS 1.07 K/uL 0.00-0.00 H (CELLAVISION)(BEAKER) (test code = 2837) PROMYELOCYTES - ABS 0.21 K/uL 0.00-0.00 H (CELLAVISION)(BEAKER) (test code = 2838) BANDS - ABS (CELLAVISION)(BEAKER) 2.78 K/uL 0.00-0.80 H (test code = 2840) BLASTS - ABS 0.21 K/uL 0.00-0.00 H (CELLAVISION)(BEAKER) (test code = 2845) TOTAL COUNTED (BEAKER) (test code 100 = 1351) PLT MORPHOLOGY (BEAKER) (test Normal code = 486) SMUDGE CELLS (BEAKER) (test code Present = 1371) POLYCHROMATOPHILLIC RBCS(BEAKER) 2+ moderate (test code = 478) ANISOCYTOSIS (BEAKER) (test code 1+ few = 961) MICROCYTES (BEAKER) (test code = 1+ few 965) POIKILOCYTES (BEAKER) (test code 1+ few = 966) SCHISTOCYTES (BEAKER) (test code 1+ few = 765) ARTIFACT (CELLAVISION)(BEAKER) Present (test code = 3432) PLATELET CONCENTRATION Increased (CELLAVISION)(BEAKER) (test code = 3438) [employer] ID - Adriana OverholtUser comments: Slide comments:[facility] FACTOR ([facility]) [id number] 11:01:57 Test Item Value Reference Range Interpretation Comments [facility] ANTIGEN (BEAKER) (test code = 266.0 % 50.0-160.0 H 3215) BASIC METABOLIC [id number] 08:03:01 Test Item Value Reference Range Interpretation Comments SODIUM (BEAKER) 141 meq/L 136-145 (test code = 381) POTASSIUM (BEAKER) 3.9 meq/L 3.5-5.1 (test code = 379) CHLORIDE (BEAKER) 109 meq/L 98-107 H (test code = 382) CO2 (BEAKER) (test 23 meq/L 22-29 code = 355) BLOOD UREA NITROGEN 5 mg/dL 7-21 L (BEAKER) (test code = 354) CREATININE (BEAKER) 0.64 mg/dL 0.57-1.25 (test code = 358) GLUCOSE RANDOM 137 mg/dL 70-105 H (BEAKER) (test code = 652) CALCIUM (BEAKER) 8.7 mg/dL 8.4-10.2 (test code = 697) EGFR (BEAKER) (test 128 mL/min/1.73 ESTIM ATED GFR IS code = 1092) sq m NOT ACCURATE CREATININE CLEARANCE IN PREDICTING GLOMERULAR FILTRATION RATE . ESTIMATED GFR I S NOT APPLICABLE FOR DIALYSIS PATIEN TS. [employer] ID - THOMAS M(CELLAVISION MANUAL DIFF)2021-09-08 07:15:55 Test Item Value Reference Range Interpretation Comments NEUTROPHILS - REL 68 % (CELLAVISION)(BEAKER) (test code = 2816) LYMPHOCYTES - REL 13 % (CELLAVISION)(BEAKER) (test code = 2817) MONOCYTES - REL 11 % (CELLAVISION)(BEAKER) (test code = 2818) METAMYELOCYTES - REL 3 % 0-0 H (CELLAVISION)(BEAKER) (test code = 2821) PROMYELOCYTES - REL 2 % 0-0 H (CELLAVSION)(BEAKER) (test code = 2825) BANDS - REL (CELLAVISION)(BEAKER) 2 % 0-10 (test code = 2826) NEUTROPHILS - ABS 14.28 K/ul 1.78-5.38 H (CELLAVISION)(BEAKER) (test code = 2830) LYMPHOCYTES - ABS 2.73 K/ul 1.32-3.57 (CELLAVISION)(BEAKER) (test code = 2831) MONOCYTES - ABS 2.31 K/uL 0.30-0.82 H (CELLAVISION)(BEAKER) (test code = 2832) METAMYELOCYTES - ABS 0.63 K/uL 0.00-0.00 H (CELLAVISION)(BEAKER) (test code = 2836) PROMYELOCYTES - ABS 0.42 K/uL 0.00-0.00 H (CELLAVISION)(BEAKER) (test code = 2838) BANDS - ABS (CELLAVISION)(BEAKER) 0.42 K/uL 0.00-0.80 (test code = 2840) TOTAL COUNTED (BEAKER) (test code 100 = 1351) MANUAL NRBC PER 100 CELLS (BEAKER) 2 /100 WBC 0-0 H (test code = 1353) GIANT PLATELETS (BEAKER) (test Present code = 313) TOXIC GRANULATION (BEAKER) (test Present code = 771) POLYCHROMATOPHILLIC RBCS(BEAKER) 1+ few (test code = 478) ANISOCYTOSIS (BEAKER) (test code = 3+ many 961) MICROCYTES (BEAKER) (test code = 3+ many 965) POIKILOCYTES (BEAKER) (test code = 1+ few 966) ELLIPTOCYTES (BEAKER) (test code = 1+ few 962) ARTIFACT (CELLAVISION)(BEAKER) Present (test code = 3432) PLATELET CONCENTRATION Increased (CELLAVISION)(BEAKER) (test code = 3438) [employer] ID - [place] comments: Slide comments:CBC W/PLT COUNT & AUTO [id number] 07:15:54 Test Item Value Reference Range Interpretation Comments WHITE BLOOD CELL COUNT (BEAKER) 21.0 K/ L 3.5-10.5 H (test code = 775) RED BLOOD CELL COUNT (BEAKER) 2.93 M/ L 4.63-6.08 L (test code = 761) HEMOGLOBIN (BEAKER) (test code = 8.2 GM/DL 13.7-17.5 L 410) HEMATOCRIT (BEAKER) (test code = 25.0 % 40.1-51.0 L 411) MEAN CORPUSCULAR VOLUME (BEAKER) 85.3 fL 79.0-92.2 (test code = 753) MEAN CORPUSCULAR HEMOGLOBIN 28.0 pg 25.7-32.2 (BEAKER) (test code = 751) MEAN CORPUSCULAR HEMOGLOBIN CONC 32.8 GM/DL 32.3-36.5 (BEAKER) (test code = 752) RED CELL DISTRIBUTION WIDTH 23.2 % 11.6-14.4 H (BEAKER) (test code = 412) PLATELET COUNT (BEAKER) (test 1159 K/CU MM 150-450 H code = 756) MEAN PLATELET VOLUME (BEAKER) 9.3 fL 9.4-12.4 L (test code = 754) NUCLEATED RED BLOOD CELLS 1 /100 WBC 0-0 H (BEAKER) (test code = 413) (CELLAVISION MANUAL DIFF)2021-09-07 08:49:25 Test Item Value Reference Range Interpretation Comments NEUTROPHILS - REL 69 % (CELLAVISION)(BEAKER) (test code = 2816) LYMPHOCYTES - REL 11 % (CELLAVISION)(BEAKER) (test code = 2817) MONOCYTES - REL 4 % (CELLAVISION)(BEAKER) (test code = 2818) METAMYELOCYTES - REL 7 % 0-0 H (CELLAVISION)(BEAKER) (test code = 2821) MYELOCYTES - REL 3 % 0-0 H (CELLAVISION)(BEAKER) (test code = 2822) PROMYELOCYTES - REL 1 % 0-0 H (CELLAVSION)(BEAKER) (test code = 2825) BANDS - REL (CELLAVISION)(BEAKER) 4 % 0-10 (test code = 2826) ATYPICAL LYMPHOCYTES - REL 1 % 0-0 H (CELLAVISION)(BEAKER) (test code = 2829) NEUTROPHILS - ABS 14.56 K/ul 1.78-5.38 H (CELLAVISION)(BEAKER) (test code = 2830) LYMPHOCYTES - ABS 2.32 K/ul 1.32-3.57 (CELLAVISION)(BEAKER) (test code = 2831) MONOCYTES - ABS 0.84 K/uL 0.30-0.82 H (CELLAVISION)(BEAKER) (test code = 2832) METAMYELOCYTES - ABS 1.48 K/uL 0.00-0.00 H (CELLAVISION)(BEAKER) (test code = 2836) MYELOCYTES-ABS 0.63 K/uL 0.00-0.00 H (CELLAVISION)(BEAKER) (test code = 2837) PROMYELOCYTES - ABS 0.21 K/uL 0.00-0.00 H (CELLAVISION)(BEAKER) (test code = 2838) BANDS - ABS (CELLAVISION)(BEAKER) 0.84 K/uL 0.00-0.80 H (test code = 2840) ATYPICAL LYMPHOCYTES - ABS 0.21 K/uL 0.00-0.00 H (CELLAVISION)(BEAKER) (test code = 2858) TOTAL COUNTED (BEAKER) (test code 100 = 1351) RBC MORPHOLOGY (BEAKER) (test Normal code = 762) WBC MORPHOLOGY (BEAKER) (test Normal code = 487) PLT MORPHOLOGY (BEAKER) (test Normal code = 486) SMUDGE CELLS (BEAKER) (test code Present = 1371) TOXIC GRANULATION (BEAKER) (test Present code = 771) POLYCHROMATOPHILLIC RBCS(BEAKER) 2+ moderate (test code = 478) ANISOCYTOSIS (BEAKER) (test code 1+ few = 961) MICROCYTES (BEAKER) (test code = 1+ few 965) POIKILOCYTES (BEAKER) (test code 1+ few = 966) SCHISTOCYTES (BEAKER) (test code 1+ few = 765) OVALOCYTES (BEAKER) (test code = 1+ few 477) TEAR DROP CELLS (BEAKER) (test 1+ few code = 481) HELMET CELLS 1+ few (CELLAVISION)(BEAKER) (test code = 3434) PLATELET CONCENTRATION Increased (CELLAVISION)(BEAKER) (test code = 3438) [employer] ID - Berry Sharp-onRomainr comments: Slide comments:CBC W/PLT COUNT & AUTO [id number] 08:49:24 Test Item Value Reference Range Interpretation Comments WHITE BLOOD CELL COUNT (BEAKER) 21.1 K/ L 3.5-10.5 H (test code = 775) RED BLOOD CELL COUNT (BEAKER) 3.26 M/ L 4.63-6.08 L (test code = 761) HEMOGLOBIN (BEAKER) (test code = 9.0 GM/DL 13.7-17.5 L 410) HEMATOCRIT (BEAKER) (test code = 27.7 % 40.1-51.0 L 411) MEAN CORPUSCULAR VOLUME (BEAKER) 85.0 fL 79.0-92.2 (test code = 753) MEAN CORPUSCULAR HEMOGLOBIN 27.6 pg 25.7-32.2 (BEAKER) (test code = 751) MEAN CORPUSCULAR HEMOGLOBIN CONC 32.5 GM/DL 32.3-36.5 (BEAKER) (test code = 752) RED CELL DISTRIBUTION WIDTH 23.0 % 11.6-14.4 H (BEAKER) (test code = 412) PLATELET COUNT (BEAKER) (test 1292 K/CU MM 150-450 H code = 756) MEAN PLATELET VOLUME (BEAKER) 9.4 fL 9.4-12.4 (test code = 754) NUCLEATED RED BLOOD CELLS 0 /100 WBC 0-0 (BEAKER) (test code = 413) BASIC METABOLIC [id number] 07:00:59 Test Item Value Reference Range Interpretation Comments SODIUM (BEAKER) 140 meq/L 136-145 (test code = 381) POTASSIUM (BEAKER) 4.5 meq/L 3.5-5.1 (test code = 379) CHLORIDE (BEAKER) 108 meq/L 98-107 H (test code = 382) CO2 (BEAKER) (test 26 meq/L 22-29 code = 355) BLOOD UREA NITROGEN 5 mg/dL 7-21 L (BEAKER) (test code = 354) CREATININE (BEAKER) 0.75 mg/dL 0.57-1.25 (test code = 358) GLUCOSE RANDOM 244 mg/dL 70-105 H (BEAKER) (test code = 652) CALCIUM (BEAKER) 8.9 mg/dL 8.4-10.2 (test code = 697) EGFR (BEAKER) (test 107 mL/min/1.73 ESTIM ATED GFR IS code = 1092) sq m NOT ACCURATE CREATININE CLEARANCE IN PREDICTING GLOMERULAR FILTRATION RATE . ESTIMATED GFR I S NOT APPLICABLE FOR DIALYSIS PATIEN TS. [employer] ID - PIAYA L(CELLAVISION MANUAL DIFF)2021-09-06 10:07:48 Test Item Value Reference Range Interpretation Comments NEUTROPHILS - REL 42 % (CELLAVISION)(BEAKER) (test code = 2816) LYMPHOCYTES - REL 15 % (CELLAVISION)(BEAKER) (test code = 2817) MONOCYTES - REL 13 % (CELLAVISION)(BEAKER) (test code = 2818) METAMYELOCYTES - REL 7 % 0-0 H (CELLAVISION)(BEAKER) (test code = 2821) MYELOCYTES - REL 11 % 0-0 H (CELLAVISION)(BEAKER) (test code = 2822) PROMYELOCYTES - REL 4 % 0-0 H (CELLAVSION)(BEAKER) (test code = 2825) BANDS - REL (CELLAVISION)(BEAKER) 7 % 0-10 (test code = 2826) NEUTROPHILS - ABS 10.46 K/ul 1.78-5.38 H (CELLAVISION)(BEAKER) (test code = 2830) LYMPHOCYTES - ABS 3.74 K/ul 1.32-3.57 H (CELLAVISION)(BEAKER) (test code = 2831) MONOCYTES - ABS 3.24 K/uL 0.30-0.82 H (CELLAVISION)(BEAKER) (test code = 2832) METAMYELOCYTES - ABS 1.74 K/uL 0.00-0.00 H (CELLAVISION)(BEAKER) (test code = 2836) MYELOCYTES-ABS 2.74 K/uL 0.00-0.00 H (CELLAVISION)(BEAKER) (test code = 2837) PROMYELOCYTES - ABS 1.00 K/uL 0.00-0.00 H (CELLAVISION)(BEAKER) (test code = 2838) BANDS - ABS (CELLAVISION)(BEAKER) 1.74 K/uL 0.00-0.80 H (test code = 2840) TOTAL COUNTED (BEAKER) (test code 100 = 1351) MANUAL NRBC PER 100 CELLS (BEAKER) 1 /100 WBC 0-0 H (test code = 1353) WBC MORPHOLOGY (BEAKER) (test code Normal = 487) PLT MORPHOLOGY (BEAKER) (test code Normal = 486) POLYCHROMATOPHILLIC RBCS(BEAKER) 1+ few (test code = 478) ANISOCYTOSIS (BEAKER) (test code = 1+ few 961) ARTIFACT (CELLAVISION)(BEAKER) Present (test code = 3432) PLATELET CONCENTRATION Increased (CELLAVISION)(BEAKER) (test code = 3438) [employer] ID - Adriana OverholtUser comments: Slide comments:CBC W/PLT COUNT & AUTO [id number] 10:07:47 Test Item Value Reference Range Interpretation Comments WHITE BLOOD CELL COUNT (BEAKER) 24.9 K/ L 3.5-10.5 H (test code = 775) RED BLOOD CELL COUNT (BEAKER) 3.20 M/ L 4.63-6.08 L (test code = 761) HEMOGLOBIN (BEAKER) (test code = 8.8 GM/DL 13.7-17.5 L 410) HEMATOCRIT (BEAKER) (test code = 26.9 % 40.1-51.0 L 411) MEAN CORPUSCULAR VOLUME (BEAKER) 84.1 fL 79.0-92.2 (test code = 753) MEAN CORPUSCULAR HEMOGLOBIN 27.5 pg 25.7-32.2 (BEAKER) (test code = 751) MEAN CORPUSCULAR HEMOGLOBIN CONC 32.7 GM/DL 32.3-36.5 (BEAKER) (test code = 752) RED CELL DISTRIBUTION WIDTH 22.5 % 11.6-14.4 H (BEAKER) (test code = 412) PLATELET COUNT (BEAKER) (test 1237 K/CU MM 150-450 H code = 756) MEAN PLATELET VOLUME (BEAKER) 9.4 fL 9.4-12.4 (test code = 754) NUCLEATED RED BLOOD CELLS 1 /100 WBC 0-0 H (BEAKER) (test code = 413) BASIC METABOLIC [id number] 06:40:55 Test Item Value Reference Range Interpretation Comments SODIUM (BEAKER) 141 meq/L 136-145 (test code = 381) POTASSIUM (BEAKER) 3.9 meq/L 3.5-5.1 (test code = 379) CHLORIDE (BEAKER) 108 meq/L 98-107 H (test code = 382) CO2 (BEAKER) (test 25 meq/L 22-29 code = 355) BLOOD UREA NITROGEN 2 mg/dL 7-21 L (BEAKER) (test code = 354) CREATININE (BEAKER) 0.67 mg/dL 0.57-1.25 (test code = 358) GLUCOSE RANDOM 113 mg/dL 70-105 H (BEAKER) (test code = 652) CALCIUM (BEAKER) 8.7 mg/dL 8.4-10.2 (test code = 697) EGFR (BEAKER) (test 122 mL/min/1.73 ESTIM ATED GFR IS code = 1092) sq m NOT ACCURATE CREATININE CLEARANCE IN PREDICTING GLOMERULAR FILTRATION RATE . ESTIMATED GFR I S NOT APPLICABLE FOR DIALYSIS PATIEN TS. [employer] ID - WILLY LPT/[id number] 06:25:12 Test Item Value Reference Range Interpretation Comments PROTIME (BEAKER) (test 16.6 seconds 11.9-14.2 H code = 759) INR (BEAKER) (test 1.36 See_Comment [Automat ed code = 370) message] The sy stem which generated this result transmitted reference range : <=5.90. The reference range was not used to interpret this result as normal/abnormal . PARTIAL THROMBOPLASTIN 34.9 seconds 22.5-36.0 TIME (BEAKER) (test code = 760) RECOMMENDED COUMADIN/WARFARIN INR THERAPY RANGESSTANDARD DOSE: 2.0 - 3.0 Includes: PROPHYLAXIS for venous thrombosis, systemic embolization; TREATMENT for venous thrombosis and/or pulmonary embolus.HIGH RISK: Target INR is 2.5-3.5 for patients with mechanical heart valves.Fungus culture + [id number] 21:52:53 Test Item Value Reference Range Interpretation Comments Result (test code = No fungus isolated in 6463-4) 28 days Fungus Smear (test No fungi seen code = 1406) [facility] [id number] 21:52:53 Test Item Value Reference Range Interpretation Comments Result (test code = No fungus isolated in 6463-4) 28 days Fungus Smear (test No fungi seen code = 1406) [facility] [id number] 21:52:53 Test Item Value Reference Range Interpretation Comments CULTURE (BEAKER) (test No fungus isolated in code = 1095) 28 days FUNGUS SMEAR (BEAKER) No fungi seen (test code = 1406) [id number] 08:12:32 Test Item Value Reference Range Interpretation Comments PHOSPHORUS (BEAKER) (test code = 2.9 mg/dL 2.3-4.7 604) [employer] ID - WILLY [id number] 08:12:31 Test Item Value Reference Range Interpretation Comments MAGNESIUM (BEAKER) (test code = 2.0 mg/dL 1.6-2.6 627) [employer] ID - PIAYA LBASIC METABOLIC [id number] 07:26:53 Test Item Value Reference Range Interpretation Comments SODIUM (BEAKER) 140 meq/L 136-145 (test code = 381) POTASSIUM (BEAKER) 3.3 meq/L 3.5-5.1 L (test code = 379) CHLORIDE (BEAKER) 107 meq/L 98-107 (test code = 382) CO2 (BEAKER) (test 27 meq/L 22-29 code = 355) BLOOD UREA NITROGEN 2 mg/dL 7-21 L (BEAKER) (test code = 354) CREATININE (BEAKER) 0.64 mg/dL 0.57-1.25 (test code = 358) GLUCOSE RANDOM 115 mg/dL 70-105 H (BEAKER) (test code = 652) CALCIUM (BEAKER) 8.3 mg/dL 8.4-10.2 L (test code = 697) EGFR (BEAKER) (test 128 mL/min/1.73 ESTIM ATED GFR IS code = 1092) sq m NOT ACCURATE CREATININE CLEARANCE IN PREDICTING GLOMERULAR FILTRATION RATE . ESTIMATED GFR I S NOT APPLICABLE FOR DIALYSIS PATIEN TS. [employer] ID - PIAYA L(CELLAVISION MANUAL DIFF)2021-09-05 07:23:26 Test Item Value Reference Range Interpretation Comments NEUTROPHILS - REL 43 % (CELLAVISION)(BEAKER) (test code = 2816) LYMPHOCYTES - REL 6 % (CELLAVISION)(BEAKER) (test code = 2817) MONOCYTES - REL 19 % (CELLAVISION)(BEAKER) (test code = 2818) BASOPHILS - REL 1 % (CELLAVISION)(BEAKER) (test code = 2820) METAMYELOCYTES - REL 4 % 0-0 H (CELLAVISION)(BEAKER) (test code = 2821) MYELOCYTES - REL 16 % 0-0 H (CELLAVISION)(BEAKER) (test code = 2822) PROMYELOCYTES - REL 4 % 0-0 H (CELLAVSION)(BEAKER) (test code = 2825) BANDS - REL (CELLAVISION)(BEAKER) 5 % 0-10 (test code = 2826) BLASTS - REL 2 % 0-0 H (CELLAVISION)(BEAKER) (test code = 2827) NEUTROPHILS - ABS 10.49 K/ul 1.78-5.38 H (CELLAVISION)(BEAKER) (test code = 2830) LYMPHOCYTES - ABS 1.46 K/ul 1.32-3.57 (CELLAVISION)(BEAKER) (test code = 2831) MONOCYTES - ABS 4.64 K/uL 0.30-0.82 H (CELLAVISION)(BEAKER) (test code = 2832) BASOPHILS - ABS 0.24 K/uL 0.01-0.08 H (CELLAVISION)(BEAKER) (test code = 2835) METAMYELOCYTES - ABS 0.98 K/uL 0.00-0.00 H (CELLAVISION)(BEAKER) (test code = 2836) MYELOCYTES-ABS 3.90 K/uL 0.00-0.00 H (CELLAVISION)(BEAKER) (test code = 2837) PROMYELOCYTES - ABS 0.98 K/uL 0.00-0.00 H (CELLAVISION)(BEAKER) (test code = 2838) BANDS - ABS (CELLAVISION)(BEAKER) 1.22 K/uL 0.00-0.80 H (test code = 2840) BLASTS - ABS 0.49 K/uL 0.00-0.00 H (CELLAVISION)(BEAKER) (test code = 2845) TOTAL COUNTED (BEAKER) (test code 100 = 1351) MANUAL NRBC PER 100 CELLS 1 /100 WBC 0-0 H (BEAKER) (test code = 1353) WBC MORPHOLOGY (BEAKER) (test Normal code = 487) GIANT PLATELETS (BEAKER) (test Present code = 313) ANISOCYTOSIS (BEAKER) (test code 2+ moderate = 961) MICROCYTES (BEAKER) (test code = 2+ moderate 965) POIKILOCYTES (BEAKER) (test code 2+ moderate = 966) SPHEROCYTES (BEAKER) (test code = 1+ few 768) ELLIPTOCYTES (BEAKER) (test code 1+ few = 962) ARTIFACT (CELLAVISION)(BEAKER) Present (test code = 3432) PLATELET CONCENTRATION Increased (CELLAVISION)(BEAKER) (test code = 3438) [employer] [place] - [place] comments: Slide comments:CBC W/PLT COUNT & AUTO [id number] 07:23:24 Test Item Value Reference Range Interpretation Comments WHITE BLOOD CELL COUNT (BEAKER) 24.4 K/ L 3.5-10.5 H (test code = 775) RED BLOOD CELL COUNT (BEAKER) 2.98 M/ L 4.63-6.08 L (test code = 761) HEMOGLOBIN (BEAKER) (test code = 8.2 GM/DL 13.7-17.5 L 410) HEMATOCRIT (BEAKER) (test code = 24.7 % 40.1-51.0 L 411) MEAN CORPUSCULAR VOLUME (BEAKER) 82.9 fL 79.0-92.2 (test code = 753) MEAN CORPUSCULAR HEMOGLOBIN 27.5 pg 25.7-32.2 (BEAKER) (test code = 751) MEAN CORPUSCULAR HEMOGLOBIN CONC 33.2 GM/DL 32.3-36.5 (BEAKER) (test code = 752) RED CELL DISTRIBUTION WIDTH 21.7 % 11.6-14.4 H (BEAKER) (test code = 412) PLATELET COUNT (BEAKER) (test 1059 K/CU MM 150-450 H code = 756) MEAN PLATELET VOLUME (BEAKER) 9.6 fL 9.4-12.4 (test code = 754) NUCLEATED RED BLOOD CELLS 1 /100 WBC 0-0 H (BEAKER) (test code = 413) SARS-COV2/RT-PCR ([facility])2021-09-05 03:29:31 Test Item Value Reference Range Interpretation Comments SARS-COV2/RT-PCR (test Negative Not Detected, Negative, code = 7212640) See external report for linked test SARS-COV-2 PERFORMING LAB [facility] (test code = 3216546) Negative result for this test determines that SARS-CoV-2 RNA was not present in the specimen above the Limit of Detection (LOD). However, Negative results do not preclude SARS-CoV-2 infection and should not be used as the sole basis for treatment or patient management decisions. Negative results must be combined with clinical observations, patient history, and epidemiological information. A false negative result may occur if a specimen is improperly collected, transported or handled. A false negative result should be considered if patient's recent exposures or clinical presentation indicate that COVID-19 (SARS-CoV-2) is likely and diagnostic tests for other causes of illness are negative. Re-testing should be considered in cases of suspected false negatives.The limit of detection for this assay is 800 copies/mL.This SARS CoV-2 test is a real-time RT-PCR test intended for the qualitative detection of nucleic acid from SARS-CoV-2 in a nasopharyngeal swab specimen collected from individuals suspected of COVID-19 by their healthcare provider.This test has not been Food and Drug Administration (FDA) cleared or approved. This is a modified version of an approved Emergency Use Authorization (EUA) and is in the process of review by the FDA. Once authorized by the FDA, the issued EUA will be effective until the declaration that circumstances exist justifying the authorization of the emergency use ofin vitro diagnostic tests for detection and/or diagnosis of COVID-19 is terminated under Section 564(b)(2) of the Act or the EUA is revoked under Section 564(g) of the Act.Fact Sheet for Healthcare Prov iders:https://www.[employer]/sites/default/files/product/documents/Fact_Sheet_HC _Cozqzpvoo_Fbfn_XUXZ-VdG-2.pdfFact Sheet for Healthcare Patients:https://www.[employer]/sites/default/files/product/docume nts/Utaj_Pgutv_Fusxnzdp_Epsn_PCOP-YiI-2.pdfPerforming Laboratory:[facility].[place], [place] [address]GJ, PELVIS, WO CONTRAST 2021-09-04 11:00:00Please extend to mid-thigh bilaterally to allow evaluation of perineal woundUnlisted Reason for Exam- Click Yes and Enter Reason Below- >NoWill this procedure require oral contrast?->No [facility] : 1965 Sex: MFINAL REPORT CT pelvis without contrast HISTORY: Perianal abscess COMPARISON: CT abdomen and pelvis 08/31/2021 Technique: serial axial imaging was performed without intravenous contrast as per departmental protocol. Multiplanar images are reconstructed and reviewed when indicated. This CT examination is performed using one or more of the following dose reduction techniques: Automat ed exposure control, adjustment of the mA and /or kV according to patient size, and/or use of iterative reconstruction technique. FINDINGS: No small or large bowel obstruction is visualized. No apparent bowel wall thickening. No perianal or perirectal fluid collection. Normal appendix. No lymphadenopathy or free fluid is seen within the pelvis. Bladder demonstrates no definite wall thickening or intraluminal mass. Prostate gland appears normal in size. Small bilateral fat-containing inguinal hernias, left greater than right. The unenhanced soft tissues appear grossly unremarkable. The osseous structures appear unremarkable. IMPRESSION: No acute findings in the pelvis. Signed: Mack Wagner MDReport Verified Date/Time: 09/04/2021 11:00:12 WOUND CULTURE + GRAM STAIN 2021-09-04 09:26:03 Test Item Value Reference Interpretation Comments Range CULTURE (BEAKER) ESCHERICHIA COLI A 3+ Esch erichia coli (test code = 1095) Amikacin (test code = S 1) Ampicillin + R Sulbactam (test code = 6) Aztreonam (test code S = 32) Cefepime (test code = S 51) Cefoxitin (test code S = 68) Ceftazidime (test S code = 27) Ceftriaxone (test S code = 52) Ertapenem (test code S = 38) Gentamicin (test code R = 18) Levofloxacin (test R code = 22) Meropenem (test code S = 34) Nitrofurantoin (test S code = 23) Piperacillin + S Tazobactam (test code = 29) Tetracycline (test S code = 2) Tobramycin (test code R = 25) Trimethoprim + R Sulfamethoxazole (test code = 47) CULTURE (BEAKER) KLEBSIELLA A 3+ Klebsiel la (test code = 1095) PNEUMONIAE pneumonia eESBL Positive Amikacin (test code = S 1) Ampicillin + R Sulbactam (test code = 6) Aztreonam (test code R = 32) Cefepime (test code = R 51) Cefoxitin (test code R = 68) Ceftazidime (test R code = 27) Ceftriaxone (test R code = 52) Ertapenem (test code S = 38) Gentamicin (test code S = 18) Levofloxacin (test R code = 22) Meropenem (test code S = 34) Nitrofurantoin (test S code = 23) Piperacillin + R Tazobactam (test code = 29) Tetracycline (test S code = 2) Tobramycin (test code R = 25) Trimethoprim + R Sulfamethoxazole (test code = 47) GRAM STAIN RESULT 1+ WBCs (BEAKER) (test code = 1123) GRAM STAIN RESULT 1+ gram negative (BEAKER) (test code = rods 322724) GRAM STAIN RESULT <1+ gram (BEAKER) (test code = positive rods 990045) 1+ Skin maryellen(CELLAVISION MANUAL DIFF)2021-09-04 07:56:14 Test Item Value Reference Range Interpretation Comments NEUTROPHILS - REL 41 % (CELLAVISION)(BEAKER) (test code = 2816) LYMPHOCYTES - REL 12 % (CELLAVISION)(BEAKER) (test code = 2817) MONOCYTES - REL 12 % (CELLAVISION)(BEAKER) (test code = 2818) EOSINOPHILS - REL 1 % (CELLAVISION)(BEAKER) (test code = 2819) METAMYELOCYTES - REL 5 % 0-0 H (CELLAVISION)(BEAKER) (test code = 2821) MYELOCYTES - REL 12 % 0-0 H (CELLAVISION)(BEAKER) (test code = 2822) PROMYELOCYTES - REL 9 % 0-0 H (CELLAVSION)(BEAKER) (test code = 2825) BANDS - REL (CELLAVISION)(BEAKER) 6 % 0-10 (test code = 2826) BLASTS - REL (CELLAVISION)(BEAKER) 2 % 0-0 H (test code = 2827) NEUTROPHILS - ABS 9.92 K/ul 1.78-5.38 H (CELLAVISION)(BEAKER) (test code = 2830) LYMPHOCYTES - ABS 2.90 K/ul 1.32-3.57 (CELLAVISION)(BEAKER) (test code = 2831) MONOCYTES - ABS 2.90 K/uL 0.30-0.82 H (CELLAVISION)(BEAKER) (test code = 2832) EOSINOPHILS - ABS 0.24 K/uL 0.04-0.54 (CELLAVISION)(BEAKER) (test code = 2834) METAMYELOCYTES - ABS 1.21 K/uL 0.00-0.00 H (CELLAVISION)(BEAKER) (test code = 2836) MYELOCYTES-ABS 2.90 K/uL 0.00-0.00 H (CELLAVISION)(BEAKER) (test code = 2837) PROMYELOCYTES - ABS 2.18 K/uL 0.00-0.00 H (CELLAVISION)(BEAKER) (test code = 2838) BANDS - ABS (CELLAVISION)(BEAKER) 1.45 K/uL 0.00-0.80 H (test code = 2840) BLASTS - ABS (CELLAVISION)(BEAKER) 0.48 K/uL 0.00-0.00 H (test code = 2845) TOTAL COUNTED (BEAKER) (test code = 100 1351) WBC MORPHOLOGY (BEAKER) (test code Normal = 487) GIANT PLATELETS (BEAKER) (test code Present = 313) ANISOCYTOSIS (BEAKER) (test code = 3+ many 961) MICROCYTES (BEAKER) (test code = 3+ many 965) ARTIFACT (CELLAVISION)(BEAKER) Present (test code = 3432) PLATELET CONCENTRATION Increased (CELLAVISION)(BEAKER) (test code = 3438) [employer] ID - [place] comments: Slide comments:CBC W/PLT COUNT & AUTO [id number] 07:56:12 Test Item Value Reference Range Interpretation Comments WHITE BLOOD CELL COUNT (BEAKER) 24.2 K/ L 3.5-10.5 H (test code = 775) RED BLOOD CELL COUNT (BEAKER) 2.90 M/ L 4.63-6.08 L (test code = 761) HEMOGLOBIN (BEAKER) (test code = 7.9 GM/DL 13.7-17.5 L 410) HEMATOCRIT (BEAKER) (test code = 24.1 % 40.1-51.0 L 411) MEAN CORPUSCULAR VOLUME (BEAKER) 83.1 fL 79.0-92.2 (test code = 753) MEAN CORPUSCULAR HEMOGLOBIN 27.2 pg 25.7-32.2 (BEAKER) (test code = 751) MEAN CORPUSCULAR HEMOGLOBIN CONC 32.8 GM/DL 32.3-36.5 (BEAKER) (test code = 752) RED CELL DISTRIBUTION WIDTH 21.3 % 11.6-14.4 H (BEAKER) (test code = 412) PLATELET COUNT (BEAKER) (test 977 K/CU MM 150-450 H code = 756) MEAN PLATELET VOLUME (BEAKER) 10.0 fL 9.4-12.4 (test code = 754) NUCLEATED RED BLOOD CELLS 0 /100 WBC 0-0 (BEAKER) (test code = 413) [id number] 07:27:21 Test Item Value Reference Range Interpretation Comments MAGNESIUM (BEAKER) (test code = 1.6 mg/dL 1.6-2.6 627) [employer] ID - PIAYA [id number] 07:27:21 Test Item Value Reference Range Interpretation Comments PHOSPHORUS (BEAKER) (test code = 2.2 mg/dL 2.3-4.7 L 604) [employer] ID - PIAYA LBASIC METABOLIC [id number] 07:27:20 Test Item Value Reference Range Interpretation Comments SODIUM (BEAKER) 141 meq/L 136-145 (test code = 381) POTASSIUM (BEAKER) 3.6 meq/L 3.5-5.1 (test code = 379) CHLORIDE (BEAKER) 109 meq/L 98-107 H (test code = 382) CO2 (BEAKER) (test 24 meq/L 22-29 code = 355) BLOOD UREA NITROGEN 4 mg/dL 7-21 L (BEAKER) (test code = 354) CREATININE (BEAKER) 0.64 mg/dL 0.57-1.25 (test code = 358) GLUCOSE RANDOM 126 mg/dL 70-105 H (BEAKER) (test code = 652) CALCIUM (BEAKER) 8.3 mg/dL 8.4-10.2 L (test code = 697) EGFR (BEAKER) (test 128 mL/min/1.73 ESTIM ATED GFR IS code = 1092) sq m NOT ACCURATE CREATININE CLEARANCE IN PREDICTING GLOMERULAR FILTRATION RATE . ESTIMATED GFR I S NOT APPLICABLE FOR DIALYSIS PATIEN TS. [employer] ID - PIAYA LBLOOD [id number] 23:01:25 Test Item Value Reference Range Interpretation Comments CULTURE (BEAKER) (test No growth in 5 days code = 1095) The specimen volume collected for this blood culture was below the optimum (10 mL per bottle or 20 mL total). Use of lower volumes may adversely affect recovery and/or detection times of some organisms.BLOOD [id number] 23:01:25 Test Item Value Reference Range Interpretation Comments CULTURE (BEAKER) (test No growth in 5 days code = 1095) (CELLAVISION MANUAL DIFF)2021-09-03 09:51:43 Test Item Value Reference Range Interpretation Comments NEUTROPHILS - REL 41 % (CELLAVISION)(BEAKER) (test code = 2816) LYMPHOCYTES - REL 13 % (CELLAVISION)(BEAKER) (test code = 2817) MONOCYTES - REL 13 % (CELLAVISION)(BEAKER) (test code = 2818) METAMYELOCYTES - REL 8 % 0-0 H (CELLAVISION)(BEAKER) (test code = 2821) MYELOCYTES - REL 11 % 0-0 H (CELLAVISION)(BEAKER) (test code = 2822) PROMYELOCYTES - REL 6 % 0-0 H (CELLAVSION)(BEAKER) (test code = 2825) BANDS - REL (CELLAVISION)(BEAKER) 4 % 0-10 (test code = 2826) BLASTS - REL 2 % 0-0 H (CELLAVISION)(BEAKER) (test code = 2827) ATYPICAL LYMPHOCYTES - REL 2 % 0-0 H (CELLAVISION)(BEAKER) (test code = 2829) NEUTROPHILS - ABS 9.23 K/ul 1.78-5.38 H (CELLAVISION)(BEAKER) (test code = 2830) LYMPHOCYTES - ABS 2.93 K/ul 1.32-3.57 (CELLAVISION)(BEAKER) (test code = 2831) MONOCYTES - ABS 2.93 K/uL 0.30-0.82 H (CELLAVISION)(BEAKER) (test code = 2832) METAMYELOCYTES - ABS 1.80 K/uL 0.00-0.00 H (CELLAVISION)(BEAKER) (test code = 2836) MYELOCYTES-ABS 2.48 K/uL 0.00-0.00 H (CELLAVISION)(BEAKER) (test code = 2837) PROMYELOCYTES - ABS 1.35 K/uL 0.00-0.00 H (CELLAVISION)(BEAKER) (test code = 2838) BANDS - ABS (CELLAVISION)(BEAKER) 0.90 K/uL 0.00-0.80 H (test code = 2840) BLASTS - ABS 0.45 K/uL 0.00-0.00 H (CELLAVISION)(BEAKER) (test code = 2845) ATYPICAL LYMPHOCYTES - ABS 0.45 K/uL 0.00-0.00 H (CELLAVISION)(BEAKER) (test code = 2858) TOTAL COUNTED (BEAKER) (test code 100 = 1351) PLT MORPHOLOGY (BEAKER) (test Normal code = 486) TOXIC GRANULATION (BEAKER) (test Present code = 771) POLYCHROMATOPHILLIC RBCS(BEAKER) 1+ few (test code = 478) HYPOCHROMIA (BEAKER) (test code = 1+ few 963) ANISOCYTOSIS (BEAKER) (test code 2+ moderate = 961) MICROCYTES (BEAKER) (test code = 2+ moderate 965) POIKILOCYTES (BEAKER) (test code 1+ few = 966) ELLIPTOCYTES (BEAKER) (test code 1+ few = 962) OVALOCYTES (BEAKER) (test code = 1+ few 477) TEAR DROP CELLS (BEAKER) (test 1+ few code = 481) ARTIFACT (CELLAVISION)(BEAKER) Present (test code = 3202) PLATELET CONCENTRATION Increased (CELLAVISION)(BEAKER) (test code = 5428) [employer] ID - Magda Roxana comments: Slide comments:CBC W/PLT COUNT & AUTO [id number] 09:51:41 Test Item Value Reference Range Interpretation Comments WHITE BLOOD CELL COUNT (BEAKER) 22.5 K/ L 3.5-10.5 H (test code = 775) RED BLOOD CELL COUNT (BEAKER) 2.93 M/ L 4.63-6.08 L (test code = 761) HEMOGLOBIN (BEAKER) (test code = 7.9 GM/DL 13.7-17.5 L 410) HEMATOCRIT (BEAKER) (test code = 23.9 % 40.1-51.0 L 411) MEAN CORPUSCULAR VOLUME (BEAKER) 81.6 fL 79.0-92.2 (test code = 753) MEAN CORPUSCULAR HEMOGLOBIN 27.0 pg 25.7-32.2 (BEAKER) (test code = 751) MEAN CORPUSCULAR HEMOGLOBIN CONC 33.1 GM/DL 32.3-36.5 (BEAKER) (test code = 752) RED CELL DISTRIBUTION WIDTH 21.2 % 11.6-14.4 H (BEAKER) (test code = 412) PLATELET COUNT (BEAKER) (test 744 K/CU MM 150-450 H code = 756) MEAN PLATELET VOLUME (BEAKER) 9.9 fL 9.4-12.4 (test code = 754) NUCLEATED RED BLOOD CELLS 0 /100 WBC 0-0 (BEAKER) (test code = 413) [id number] 07:50:43 Test Item Value Reference Range Interpretation Comments PHOSPHORUS (BEAKER) (test code = 2.4 mg/dL 2.3-4.7 604) [employer] ID - JONGDAISY LBASIC METABOLIC [id number] 07:50:42 Test Item Value Reference Range Interpretation Comments SODIUM (BEAKER) 139 meq/L 136-145 (test code = 381) POTASSIUM (BEAKER) 3.7 meq/L 3.5-5.1 (test code = 379) CHLORIDE (BEAKER) 108 meq/L 98-107 H (test code = 382) CO2 (BEAKER) (test 23 meq/L 22-29 code = 355) BLOOD UREA NITROGEN 3 mg/dL 7-21 L (BEAKER) (test code = 354) CREATININE (BEAKER) 0.67 mg/dL 0.57-1.25 (test code = 358) GLUCOSE RANDOM 117 mg/dL 70-105 H (BEAKER) (test code = 652) CALCIUM (BEAKER) 8.3 mg/dL 8.4-10.2 L (test code = 697) EGFR (BEAKER) (test 122 mL/min/1.73 ESTIM ATED GFR IS code = 1092) sq m NOT ACCURATE CREATININE CLEARANCE IN PREDICTING GLOMERULAR FILTRATION RATE . ESTIMATED GFR I S NOT APPLICABLE FOR DIALYSIS PATIEN TS. [employer] ID - PIDAISY [id number] 07:50:42 Test Item Value Reference Range Interpretation Comments MAGNESIUM (BEAKER) (test code = 1.7 mg/dL 1.6-2.6 627) [employer] ID - WILLY L(CELLAVISION MANUAL DIFF)2021-09-02 08:45:36 Test Item Value Reference Range Interpretation Comments NEUTROPHILS - REL 45 % (CELLAVISION)(BEAKER) (test code = 2816) LYMPHOCYTES - REL 13 % (CELLAVISION)(BEAKER) (test code = 2817) MONOCYTES - REL 10 % (CELLAVISION)(BEAKER) (test code = 2818) METAMYELOCYTES - REL 6 % 0-0 H (CELLAVISION)(BEAKER) (test code = 2821) MYELOCYTES - REL 6 % 0-0 H (CELLAVISION)(BEAKER) (test code = 2822) PROMYELOCYTES - REL 13 % 0-0 H (CELLAVSION)(BEAKER) (test code = 2825) BANDS - REL (CELLAVISION)(BEAKER) 3 % 0-10 (test code = 2826) BLASTS - REL (CELLAVISION)(BEAKER) 2 % 0-0 H (test code = 2827) NEUTROPHILS - ABS 7.02 K/ul 1.78-5.38 H (CELLAVISION)(BEAKER) (test code = 2830) LYMPHOCYTES - ABS 2.03 K/ul 1.32-3.57 (CELLAVISION)(BEAKER) (test code = 2831) MONOCYTES - ABS 1.56 K/uL 0.30-0.82 H (CELLAVISION)(BEAKER) (test code = 2832) METAMYELOCYTES - ABS 0.94 K/uL 0.00-0.00 H (CELLAVISION)(BEAKER) (test code = 2836) MYELOCYTES-ABS 0.94 K/uL 0.00-0.00 H (CELLAVISION)(BEAKER) (test code = 2837) PROMYELOCYTES - ABS 2.03 K/uL 0.00-0.00 H (CELLAVISION)(BEAKER) (test code = 2838) BANDS - ABS (CELLAVISION)(BEAKER) 0.47 K/uL 0.00-0.80 (test code = 2840) BLASTS - ABS (CELLAVISION)(BEAKER) 0.31 K/uL 0.00-0.00 H (test code = 2845) TOTAL COUNTED (BEAKER) (test code = 100 1351) PLT MORPHOLOGY (BEAKER) (test code Normal = 486) TOXIC GRANULATION (BEAKER) (test Present code = 771) ANISOCYTOSIS (BEAKER) (test code = 1+ few 961) MICROCYTES (BEAKER) (test code = 1+ few 965) ARTIFACT (CELLAVISION)(BEAKER) Present (test code = 3432) PLATELET CONCENTRATION Adequate (CELLAVISION)(BEAKER) (test code = 3438) [employer] ID - Adriana OverholtUser comments: Slide comments:CBC W/PLT COUNT & AUTO [id number] 08:45:35 Test Item Value Reference Range Interpretation Comments WHITE BLOOD CELL COUNT (BEAKER) 15.6 K/ L 3.5-10.5 H (test code = 775) RED BLOOD CELL COUNT (BEAKER) 3.03 M/ L 4.63-6.08 L (test code = 761) HEMOGLOBIN (BEAKER) (test code = 8.1 GM/DL 13.7-17.5 L 410) HEMATOCRIT (BEAKER) (test code = 24.3 % 40.1-51.0 L 411) MEAN CORPUSCULAR VOLUME (BEAKER) 80.2 fL 79.0-92.2 (test code = 753) MEAN CORPUSCULAR HEMOGLOBIN 26.7 pg 25.7-32.2 (BEAKER) (test code = 751) MEAN CORPUSCULAR HEMOGLOBIN CONC 33.3 GM/DL 32.3-36.5 (BEAKER) (test code = 752) RED CELL DISTRIBUTION WIDTH 20.7 % 11.6-14.4 H (BEAKER) (test code = 412) PLATELET COUNT (BEAKER) (test 398 K/CU MM 150-450 code = 756) MEAN PLATELET VOLUME (BEAKER) 10.4 fL 9.4-12.4 (test code = 754) NUCLEATED RED BLOOD CELLS 0 /100 WBC 0-0 (BEAKER) (test code = 413) BASIC METABOLIC [id number] 07:05:24 Test Item Value Reference Range Interpretation Comments SODIUM (BEAKER) 138 meq/L 136-145 (test code = 381) POTASSIUM (BEAKER) 3.5 meq/L 3.5-5.1 (test code = 379) CHLORIDE (BEAKER) 109 meq/L 98-107 H (test code = 382) CO2 (BEAKER) (test 23 meq/L 22-29 code = 355) BLOOD UREA NITROGEN 4 mg/dL 7-21 L (BEAKER) (test code = 354) CREATININE (BEAKER) 0.63 mg/dL 0.57-1.25 (test code = 358) GLUCOSE RANDOM 116 mg/dL 70-105 H (BEAKER) (test code = 652) CALCIUM (BEAKER) 7.8 mg/dL 8.4-10.2 L (test code = 697) EGFR (BEAKER) (test 131 mL/min/1.73 ESTIM ATED GFR IS code = 1092) sq m NOT ACCURATE CREATININE CLEARANCE IN PREDICTING GLOMERULAR FILTRATION RATE . ESTIMATED GFR I S NOT APPLICABLE FOR DIALYSIS PATIEN TS. [employer] ID - THOMAS [id number] 07:04:39 Test Item Value Reference Range Interpretation Comments PHOSPHORUS (BEAKER) (test code = 2.3 mg/dL 2.3-4.7 604) [employer] ID - THOMAS [id number] 07:04:38 Test Item Value Reference Range Interpretation Comments MAGNESIUM (BEAKER) (test code = 2.0 mg/dL 1.6-2.6 627) [employer] ID - THOMAS MUrine [id number] 09:21:05 Test Item Value Reference Range Interpretation Comments Result (test code = 6463-4) [id number] 09:21:05 Test Item Value Reference Range Interpretation Comments Result (test code = 6463-4) No growth [facility](CELLAVISION MANUAL DIFF)2021-09-01 07:53:22 Test Item Value Reference Range Interpretation Comments NEUTROPHILS - REL 21 % (CELLAVISION)(BEAKER) (test code = 2816) LYMPHOCYTES - REL 30 % (CELLAVISION)(BEAKER) (test code = 2817) MONOCYTES - REL 12 % (CELLAVISION)(BEAKER) (test code = 2818) EOSINOPHILS - REL 1 % (CELLAVISION)(BEAKER) (test code = 2819) METAMYELOCYTES - REL 1 % 0-0 H (CELLAVISION)(BEAKER) (test code = 2821) MYELOCYTES - REL 1 % 0-0 H (CELLAVISION)(BEAKER) (test code = 2822) PROMYELOCYTES - REL 19 % 0-0 H (CELLAVSION)(BEAKER) (test code = 2825) BANDS - REL (CELLAVISION)(BEAKER) 5 % 0-10 (test code = 2826) BLASTS - REL 8 % 0-0 H (CELLAVISION)(BEAKER) (test code = 2827) ATYPICAL LYMPHOCYTES - REL 1 % 0-0 H (CELLAVISION)(BEAKER) (test code = 2829) NEUTROPHILS - ABS 1.76 K/ul 1.78-5.38 L (CELLAVISION)(BEAKER) (test code = 2830) LYMPHOCYTES - ABS 2.52 K/ul 1.32-3.57 (CELLAVISION)(BEAKER) (test code = 2831) MONOCYTES - ABS 1.01 K/uL 0.30-0.82 H (CELLAVISION)(BEAKER) (test code = 2832) EOSINOPHILS - ABS 0.08 K/uL 0.04-0.54 (CELLAVISION)(BEAKER) (test code = 2834) METAMYELOCYTES - ABS 0.08 K/uL 0.00-0.00 H (CELLAVISION)(BEAKER) (test code = 2836) MYELOCYTES-ABS 0.08 K/uL 0.00-0.00 H (CELLAVISION)(BEAKER) (test code = 2837) PROMYELOCYTES - ABS 1.60 K/uL 0.00-0.00 H (CELLAVISION)(BEAKER) (test code = 2838) BANDS - ABS (CELLAVISION)(BEAKER) 0.42 K/uL 0.00-0.80 (test code = 2840) BLASTS - ABS 0.67 K/uL 0.00-0.00 H (CELLAVISION)(BEAKER) (test code = 2845) ATYPICAL LYMPHOCYTES - ABS 0.08 K/uL 0.00-0.00 H (CELLAVISION)(BEAKER) (test code = 2858) TOTAL COUNTED (BEAKER) (test code 100 = 1351) PLT MORPHOLOGY (BEAKER) (test Normal code = 486) TOXIC GRANULATION (BEAKER) (test Present code = 771) POLYCHROMATOPHILLIC RBCS(BEAKER) 1+ few (test code = 478) ANISOCYTOSIS (BEAKER) (test code 2+ moderate = 961) MICROCYTES (BEAKER) (test code = 2+ moderate 965) POIKILOCYTES (BEAKER) (test code 1+ few = 966) ARTIFACT (CELLAVISION)(BEAKER) Present (test code = 3432) PLATELET CONCENTRATION Adequate (CELLAVISION)(BEAKER) (test code = 3438) [employer] ID - Adriana OverholtUser comments: Slide comments:CBC W/PLT COUNT & AUTO [id number] 07:53:21 Test Item Value Reference Range Interpretation Comments WHITE BLOOD CELL COUNT 8.4 K/ L 3.5-10.5 (BEAKER) (test code = 775) RED BLOOD CELL COUNT 2.84 M/ L 4.63-6.08 L (BEAKER) (test code = 761) HEMOGLOBIN (BEAKER) 7.6 GM/DL 13.7-17.5 L (test code = 410) HEMATOCRIT (BEAKER) 22.5 % 40.1-51.0 L (test code = 411) MEAN CORPUSCULAR 79.2 fL 79.0-92.2 VOLUME (BEAKER) (test code = 753) MEAN CORPUSCULAR 26.8 pg 25.7-32.2 HEMOGLOBIN (BEAKER) (test code = 751) MEAN CORPUSCULAR 33.8 GM/DL 32.3-36.5 HEMOGLOBIN CONC (BEAKER) (test code = 752) RED CELL DISTRIBUTION 19.9 % 11.6-14.4 H WIDTH (BEAKER) (test code = 412) PLATELET COUNT 167 K/CU MM 150-450 Discordant fr om (BEAKER) (test code = previo us results. 756) Clinical correl ation suggested. MEAN PLATELET VOLUME 10.8 fL 9.4-12.4 (BEAKER) (test code = 754) NUCLEATED RED BLOOD 0 /100 WBC 0-0 CELLS (BEAKER) (test code = 413) BASIC METABOLIC [id number] 07:36:46 Test Item Value Reference Range Interpretation Comments SODIUM (BEAKER) 137 meq/L 136-145 (test code = 381) POTASSIUM (BEAKER) 3.0 meq/L 3.5-5.1 L (test code = 379) CHLORIDE (BEAKER) 109 meq/L 98-107 H (test code = 382) CO2 (BEAKER) (test 21 meq/L 22-29 L code = 355) BLOOD UREA NITROGEN 3 mg/dL 7-21 L (BEAKER) (test code = 354) CREATININE (BEAKER) 0.65 mg/dL 0.57-1.25 (test code = 358) GLUCOSE RANDOM 108 mg/dL 70-105 H (BEAKER) (test code = 652) CALCIUM (BEAKER) 7.8 mg/dL 8.4-10.2 L (test code = 697) EGFR (BEAKER) (test 126 mL/min/1.73 ESTIM ATED GFR IS code = 1092) sq m NOT ACCURATE CREATININE CLEARANCE IN PREDICTING GLOMERULAR FILTRATION RATE . ESTIMATED GFR I S NOT APPLICABLE FOR DIALYSIS PATIEN TS. [employer] ID - [id number] 07:25:44 Test Item Value Reference Range Interpretation Comments PHOSPHORUS (BEAKER) (test code = 2.7 mg/dL 2.3-4.7 604) [employer] ID - [id number] 07:25:43 Test Item Value Reference Range Interpretation Comments MAGNESIUM (BEAKER) (test code = 1.8 mg/dL 1.6-2.6 627) [employer] ID - [facility] [id number] 23:54:00 Test Item Value Reference Range Interpretation Comments CROSSMATCH (test code = 2264) COMPATIBLE Unit ABO (test code = A Pos [id number]) UNIT NUMBER (test code = [id number] 934-0) Status (test code = 0627287) TX_TIMEINCHART Blood Bank Product (test code RED BLOOD CELLS = 2263) PRODUCT CODE (test code = P6381L17 933-2) [facility] [id number] 23:54:00 Test Item Value Reference Range Interpretation Comments Unit ABO (test code = 6582640) A Pos UNIT NUMBER (test code = [id number] 934-0) Status (test code = 7881427) TX_TIMEINCHART Blood Bank Product (test code PLATELETS = 2263) PRODUCT CODE (test code = B2445J99 933-2) [facility] [id number] 23:54:00 Test Item Value Reference Range Interpretation Comments CROSSMATCH (test code = 2264) COMPATIBLE Unit ABO (test code = A Pos 9342421) UNIT NUMBER (test code = [id number] 934-0) Status (test code = 4519020) TX_TIMEINCHART Blood Bank Product (test code RED BLOOD CELLS = 2263) PRODUCT CODE (test code = [id number] 933-2) [facility] [id number] 23:54:00 Test Item Value Reference Range Interpretation Comments Unit ABO (test code = 1492182) A Pos UNIT NUMBER (test code = [id number] 934-0) Status (test code = 7992909) TX_TIMEINCHART Blood Bank Product (test code PLATELETS = 2263) PRODUCT CODE (test code = T1430Z57 933-2) [facility], [id number] 18:43:47 Test Item Value Reference Range Interpretation Comments VANCOMYCIN TROUGH (BEAKER) (test 13.3 ug/mL 10.0-20.0 code = 522) [employer] ID - [id number] 17:47:36 Test Item Value Reference Range Interpretation Comments MAGNESIUM (BEAKER) (test code = 1.8 mg/dL 1.6-2.6 627) [employer] ID - [id number] 17:47:36 Test Item Value Reference Range Interpretation Comments PHOSPHORUS (BEAKER) (test code = 3.0 mg/dL 2.3-4.7 604) [employer] ID - BSBASIC METABOLIC [id number] 14:55:05 Test Item Value Reference Range Interpretation Comments SODIUM (BEAKER) 139 meq/L 136-145 (test code = 381) POTASSIUM (BEAKER) 3.7 meq/L 3.5-5.1 (test code = 379) CHLORIDE (BEAKER) 111 meq/L 98-107 H (test code = 382) CO2 (BEAKER) (test 21 meq/L 22-29 L code = 355) BLOOD UREA NITROGEN 4 mg/dL 7-21 L (BEAKER) (test code = 354) CREATININE (BEAKER) 0.65 mg/dL 0.57-1.25 (test code = 358) GLUCOSE RANDOM 111 mg/dL 70-105 H (BEAKER) (test code = 652) CALCIUM (BEAKER) 8.2 mg/dL 8.4-10.2 L (test code = 697) EGFR (BEAKER) (test 126 mL/min/1.73 ESTIM ATED GFR IS code = 1092) sq m NOT ACCURATE CREATININE CLEARANCE IN PREDICTING GLOMERULAR FILTRATION RATE . ESTIMATED GFR I S NOT APPLICABLE FOR DIALYSIS PATIEN TS. [employer] ID - BSCT, [id number] 08:52:00Unlisted Reason for Exam - Click Yes and Enter Reason Below->YesUnlisted Reason for Exam->neutropenic patient with fever, right buttock indurationIs this for enterography?->NoWill this procedure require oral contrast?->Yes [facility] : 1965 Sex: MFINAL REPORT CT of the abdomen and pelvis, with contrast Clinical History: Unlisted Reason for Examneutropenic patient with fever, right buttock induration Technique: CT of the abdomen and pelvis is performed with intravenous contrast administration. This exam was performed according to our departmental dose optimization program which includes automated exposure control, adjustment of the mA and/or kV according to patient's size and/or use of iterative reconstructive technique.Comparison Film: August 11, 2021 Discussion: Visualized lower thorax is unremarkable. No liver mass isidentified. No biliary ductal dilatation, gallbladder is normal. Spleen is enlarged and measures 16.2 cm axially. Pancreas, and adrenal glands are normal. A 2.6 cm hyperdense lesion in the upper pole of the right kidney demonstrates fluid fluid levels, likely containing milk of calcium; it also contains a 4 mm stone. There is a 3.7 x 4.7 cm bilobed cyst in the right kidney, and in the lower pole, an exophytic intermediate density lesion was previously characterized as a hemorrhagic or proteinaceous cyst. Additionally, two stones in the right lower pole measuring 2 to 3 mm are also seen in the rightlower pole. Previously seen small hyperdense lesion in the left kidney is poorly visualized on the current postcontrast only exam, and therefore not well evaluated. No bowel obstruction, or abnormal bowel wall thickening. Normal appendix. In the pelvis, bladder, prostate and seminal vesicles are unremarkable. There is no ascites, free air or adenopathy. Bony structures demonstrate degenerative changes. There is a hemangioma in L3 vertebral body. No soft tissue abnormality is identified. Impression: No acute process is identified in the abdomen or pelvis. Nonobstructive stones in the right kidney. Note a previously seen hyperattenuating left renal lesion is poorly visualized on the current study and therefore not well evaluated. Suggest MRI follow-up as previously recommended. Splenomegaly. Signed: Salma Costello Verified Date/Time: 08/31/2021 08:52:13 Reading Location: [facility] [id number] Ortho Consult Reading Room (CELLAVISION MANUAL DIFF)2021-08-31 04:03:10 Test Item Value Reference Range Interpretation Comments NEUTROPHILS - REL 8 % (CELLAVISION)(BEAKER) (test code = 2816) LYMPHOCYTES - REL 50 % (CELLAVISION)(BEAKER) (test code = 2817) MONOCYTES - REL 6 % (CELLAVISION)(BEAKER) (test code = 2818) EOSINOPHILS - REL 3 % (CELLAVISION)(BEAKER) (test code = 2819) BASOPHILS - REL 3 % (CELLAVISION)(BEAKER) (test code = 2820) METAMYELOCYTES - REL 3 % 0-0 H (CELLAVISION)(BEAKER) (test code = 2821) MYELOCYTES - REL 2 % 0-0 H (CELLAVISION)(BEAKER) (test code = 2822) PROMYELOCYTES - REL 13 % 0-0 H (CELLAVSION)(BEAKER) (test code = 2825) BANDS - REL (CELLAVISION)(BEAKER) 2 % 0-10 (test code = 2826) ATYPICAL LYMPHOCYTES - REL 10 % 0-0 H (CELLAVISION)(BEAKER) (test code = 2829) NEUTROPHILS - ABS 0.29 K/ul 1.78-5.38 L (CELLAVISION)(BEAKER) (test code = 2830) LYMPHOCYTES - ABS 1.80 K/ul 1.32-3.57 (CELLAVISION)(BEAKER) (test code = 2831) MONOCYTES - ABS 0.22 K/uL 0.30-0.82 L (CELLAVISION)(BEAKER) (test code = 2832) EOSINOPHILS - ABS 0.11 K/uL 0.04-0.54 (CELLAVISION)(BEAKER) (test code = 2834) BASOPHILS - ABS 0.11 K/uL 0.01-0.08 H (CELLAVISION)(BEAKER) (test code = 2835) METAMYELOCYTES - ABS 0.11 K/uL 0.00-0.00 H (CELLAVISION)(BEAKER) (test code = 2836) MYELOCYTES-ABS 0.07 K/uL 0.00-0.00 H (CELLAVISION)(BEAKER) (test code = 2837) PROMYELOCYTES - ABS 0.47 K/uL 0.00-0.00 H (CELLAVISION)(BEAKER) (test code = 2838) BANDS - ABS (CELLAVISION)(BEAKER) 0.07 K/uL 0.00-0.80 (test code = 2840) ATYPICAL LYMPHOCYTES - ABS 0.36 K/uL 0.00-0.00 H (CELLAVISION)(BEAKER) (test code = 7158) TOTAL COUNTED (BEAKER) (test code 100 = 1351) MANUAL NRBC PER 100 CELLS 1 /100 WBC 0-0 H (BEAKER) (test code = 1353) CLUMPED PLATELETS (BEAKER) (test Present code = 436) SMUDGE CELLS (BEAKER) (test code Present = 1371) GIANT PLATELETS (BEAKER) (test Present code = 313) TOXIC GRANULATION (BEAKER) (test Present code = 771) POLYCHROMATOPHILLIC RBCS(BEAKER) 1+ few (test code = 478) ANISOCYTOSIS (BEAKER) (test code 3+ many = 961) MICROCYTES (BEAKER) (test code = 3+ many 965) POIKILOCYTES (BEAKER) (test code 1+ few = 966) SPHEROCYTES (BEAKER) (test code = 1+ few 768) ELLIPTOCYTES (BEAKER) (test code 2+ moderate = 962) OVALOCYTES (BEAKER) (test code = 3+ many 477) TEAR DROP CELLS (BEAKER) (test 1+ few code = 481) ROBBIN CELLS (BEAKER) (test code = 2+ moderate 474) WATTS-JOLLY BODIES (BEAKER) 1+ few (test code = 475) ARTIFACT (CELLAVISION)(BEAKER) Present (test code = 3432) PAPPENHEIMER 1+ few (CELLAVISION)(BEAKER) (test code = 3431) PLATELET CONCENTRATION Decreased (CELLAVISION)(BEAKER) (test code = 5245) [employer] ID - [id number] ID - Rocky Malave comments: Slide comments:CBC W/PLT COUNT & AUTO [id number] 04:03:09 Test Item Value Reference Range Interpretation Comments WHITE BLOOD CELL COUNT (BEAKER) 3.6 K/ L 3.5-10.5 (test code = 775) RED BLOOD CELL COUNT (BEAKER) 2.95 M/ L 4.63-6.08 L (test code = 761) HEMOGLOBIN (BEAKER) (test code = 7.8 GM/DL 13.7-17.5 L 410) HEMATOCRIT (BEAKER) (test code = 23.2 % 40.1-51.0 L 411) MEAN CORPUSCULAR VOLUME (BEAKER) 78.6 fL 79.0-92.2 L (test code = 753) MEAN CORPUSCULAR HEMOGLOBIN 26.4 pg 25.7-32.2 (BEAKER) (test code = 751) MEAN CORPUSCULAR HEMOGLOBIN CONC 33.6 GM/DL 32.3-36.5 (BEAKER) (test code = 752) RED CELL DISTRIBUTION WIDTH 18.8 % 11.6-14.4 H (BEAKER) (test code = 412) PLATELET COUNT (BEAKER) (test code 75 K/CU MM 150-450 L = 756) MEAN PLATELET VOLUME (BEAKER) 11.0 fL 9.4-12.4 (test code = 754) NUCLEATED RED BLOOD CELLS (BEAKER) 0 /100 WBC 0-0 (test code = 413) [id number] 03:59:26 Test Item Value Reference Range Interpretation Comments PHOSPHORUS (BEAKER) (test code = 1.0 mg/dL 2.3-4.7 LL 604) [employer] ID - BSBASIC METABOLIC [id number] 03:57:49 Test Item Value Reference Range Interpretation Comments SODIUM (BEAKER) 137 meq/L 136-145 (test code = 381) POTASSIUM (BEAKER) 3.4 meq/L 3.5-5.1 L (test code = 379) CHLORIDE (BEAKER) 109 meq/L 98-107 H (test code = 382) CO2 (BEAKER) (test 20 meq/L 22-29 L code = 355) BLOOD UREA NITROGEN 4 mg/dL 7-21 L (BEAKER) (test code = 354) CREATININE (BEAKER) 0.66 mg/dL 0.57-1.25 (test code = 358) GLUCOSE RANDOM 116 mg/dL 70-105 H (BEAKER) (test code = 652) CALCIUM (BEAKER) 7.7 mg/dL 8.4-10.2 L (test code = 697) EGFR (BEAKER) (test 124 mL/min/1.73 ESTIM ATED GFR IS code = 1092) sq m NOT ACCURATE CREATININE CLEARANCE IN PREDICTING GLOMERULAR FILTRATION RATE . ESTIMATED GFR I S NOT APPLICABLE FOR DIALYSIS PATIEN TS. [employer] ID - [id number] 03:54:44 Test Item Value Reference Range Interpretation Comments MAGNESIUM (BEAKER) (test code = 1.9 mg/dL 1.6-2.6 627) [employer] ID - BSGI Pathogen Profile by [id number] 18:48:06 Test Item Value Reference Range Interpretation Comments CAMPYLOBACTER (PCR) Not detected Not detected (test code = 49240-6) PLESIOMONAS SHIGELLOIDES Not detected Not detected (PCR) (test code = 90607-9) SALMONELLA (PCR) (test Not detected Not detected code = 97584-1) YERSINIA ENTEROCOLITICA Not detected Not detected (PCR) (test code = 90558-7) VIBRIO CHOLERAE (PCR) Not detected Not detected (test code = 22012-2) ENTEROAGGREGATIVE E. Not detected Not detected COLI (EAEC) BY PCR (test code = 85397-6) ENTEROPATHOGENIC E. COLI Not detected Not detected (EPEC) BY PCR (test code = 67684-4) ENTEROTOXIGENIC E. COLI Not detected Not detected (ETEC) LT/ST BY PCR (test code = 16051-2) SHIGA-LIKE Not detected Not detected TOXIN-PRODUCING E. COLI (STEC) STX1/STX2 (test code = 77567-8) E. COLI O157 (PCR) (test code = 65281-0) SHIGELLA/ENTEROINVASIVE Not detected Not detected E. COLI (EIEC) BY PCR (test code = 75170-4) CRYPTOSPORIDIUM (PCR) Not detected Not detected (test code = 17002-8) CYCLOSPORA CAYETANENSIS Not detected Not detected (PCR) (test code = 41949-6) ENTAMOEBA HISTOLYTICA Not detected Not detected (PCR) (test code = 07639-9) GIARDIA LAMBLIA (PCR) Not detected Not detected (test code = 80625-2) ADENOVIRUS F 40/41 (PCR) Not detected Not detected (test code = 86887-3) ASTROVIRUS (PCR) (test Not detected Not detected code = 50619-1) NOROVIRUS GI/GII (PCR) Not detected Not detected (test code = 11465-7) ROTAVIRUS A (PCR) (test Not detected Not detected code = 82082-0) SAPOVIRUS (I, II, IV, V) Not detected Not detected BY PCR (test code = 29945-0) VIBRIO Not detected Not detected (PARAHAEMOLYTICUS, VULNIFICUS) (test code = 67095-8) FOREST (test code = FOREST) Other viruses, parasites and bacteria not targeted by this PCR panel cannot be excluded; therefore clinical correlation and follow up of serology, culture results, and other molecular studies is required. The results are not intended to be used as the sole means for clinical diagnosis or patient management decisions. This sample was tested at the [facility] Molecular Diagnostics Laboratory using the [employer] Gastrointestinal Panel. It is FDA cleared and has been verified and approved by the [facility] Molecular [facility]ostics [facility] for clinical use. This laboratory is CLIA-certified and [employer] (CAP)-accredited to perform high complexity testing. [facility] by [id number] 18:48:06 Test Item Value Reference Range Interpretation Comments CAMPYLOBACTER (PCR) Not detected Not detected (test code = 30962-6) PLESIOMONAS SHIGELLOIDES Not detected Not detected (PCR) (test code = 76562-7) SALMONELLA (PCR) (test Not detected Not detected code = 93516-5) YERSINIA ENTEROCOLITICA Not detected Not detected (PCR) (test code = 54293-9) VIBRIO CHOLERAE (PCR) Not detected Not detected (test code = 66096-7) ENTEROAGGREGATIVE E. Not detected Not detected COLI (EAEC) BY PCR (test code = 97778-5) ENTEROPATHOGENIC E. COLI Not detected Not detected (EPEC) BY PCR (test code = 76352-8) ENTEROTOXIGENIC E. COLI Not detected Not detected (ETEC) LT/ST BY PCR (test code = 92594-2) SHIGA-LIKE Not detected Not detected TOXIN-PRODUCING E. COLI (STEC) STX1/STX2 (test code = 97105-9) E. COLI O157 (PCR) (test code = 49938-8) SHIGELLA/ENTEROINVASIVE Not detected Not detected E. COLI (EIEC) BY PCR (test code = 50010-6) CRYPTOSPORIDIUM (PCR) Not detected Not detected (test code = 81718-9) CYCLOSPORA CAYETANENSIS Not detected Not detected (PCR) (test code = 00256-6) ENTAMOEBA HISTOLYTICA Not detected Not detected (PCR) (test code = 40097-6) GIARDIA LAMBLIA (PCR) Not detected Not detected (test code = 03594-9) ADENOVIRUS F 40/41 (PCR) Not detected Not detected (test code = 50120-4) ASTROVIRUS (PCR) (test Not detected Not detected code = 10020-3) NOROVIRUS GI/GII (PCR) Not detected Not detected (test code = 62360-6) ROTAVIRUS A (PCR) (test Not detected Not detected code = 90232-0) SAPOVIRUS (I, II, IV, V) Not detected Not detected BY PCR (test code = 79030-2) VIBRIO Not detected Not detected (PARAHAEMOLYTICUS, VULNIFICUS) (test code = 13627-5) FOREST (test code = FOREST) Other viruses, parasites and bacteria not targeted by this PCR panel cannot be excluded; therefore clinical correlation and follow up of serology, culture results, and other molecular studies is required. The results are not intended to be used as the sole means for clinical diagnosis or patient management decisions. This sample was tested at the [facility] Molecular Diagnostics Laboratory using the [employer] Gastrointestinal Panel. It is FDA cleared and has been verified and approved by the [facility] Molecular Diagnostics Laboratory for clinical use. This laboratory is CLIA-certified and [employer] (CAP)-accredited to perform high complexity testing. [facility] BY [id number] 18:48:06 Test Item Value Reference Range Interpretation Comments CAMPYLOBACTER (PCR) (test code = Not detected Not detected 20150906) PLESIOMONAS SHIGELLOIDES (PCR) Not detected Not detected (test code = 20150910) SALMONELLA (PCR) (test code = Not detected Not detected ) YERSINIA ENTEROCOLITICA (PCR) Not detected Not detected (test code = 20151003) VIBRIO CHOLERAE (PCR) (test code Not detected Not detected = 20151004) ENTEROAGGREGATIVE E. COLI (EAEC) Not detected Not detected BY PCR (test code = 1907610) ENTEROPATHOGENIC E. COLI (EPEC) Not detected Not detected BY PCR (test code = 7900795) ENTEROTOXIGENIC E. COLI (ETEC) Not detected Not detected LT/ST BY PCR (test code = 1353082) SHIGA-LIKE TOXIN-PRODUCING E. Not detected Not detected COLI (STEC) STX1/STX2 (test code = 9382413) E. COLI O157 (PCR) (test code = 1000956) SHIGELLA/ENTEROINVASIVE E. COLI Not detected Not detected (EIEC) BY PCR (test code = 20151010) CRYPTOSPORIDIUM (PCR) (test code Not detected Not detected = 20151011) CYCLOSPORA CAYETANENSIS (PCR) Not detected Not detected (test code = ) ENTAMOEBA HISTOLYTICA (PCR) Not detected Not detected (test code = 20151103) GIARDIA LAMBLIA (PCR) (test code Not detected Not detected = 20151104) ADENOVIRUS F 40/41 (PCR) (test Not detected Not detected code = 20151105) ASTROVIRUS (PCR) (test code = Not detected Not detected 20151106) NOROVIRUS GI/GII (PCR) (test Not detected Not detected code = 20151107) ROTAVIRUS A (PCR) (test code = Not detected Not detected 20151108) SAPOVIRUS (I, II, IV, V) BY PCR Not detected Not detected (test code = 2106487) VIBRIO (PARAHAEMOLYTICUS, Not detected Not detected VULNIFICUS) (test code = 8677986) Other viruses, parasites and bacteria not targeted by this PCR panel cannot be excluded; therefore clinical correlation and follow up of serology, culture results, and other molecular studies is required. The results are not intended to be used as the sole means for clinical diagnosis or patient management decisions. This sample was tested at the [facility] Molecular Diagnostics Laboratory using the [employer] Gastrointestinal Panel. It is FDA cleared and has been verified and approved by the [facility] Molecular Diagnostics Laboratory for clinical use. This laboratory is CLIA-certified and [employer] (CAP)-accredited to perform high complexity testing.MAGNESIUM 2021-08-30 15:49:02 Test Item Value Reference Range Interpretation Comments MAGNESIUM (BEAKER) (test code = 1.5 mg/dL 1.6-2.6 L 627) [employer] ID - BSBASIC METABOLIC [id number] 15:49:01 Test Item Value Reference Range Interpretation Comments SODIUM (BEAKER) 138 meq/L 136-145 (test code = 381) POTASSIUM (BEAKER) 2.7 meq/L 3.5-5.1 L (test code = 379) CHLORIDE (BEAKER) 108 meq/L 98-107 H (test code = 382) CO2 (BEAKER) (test 23 meq/L 22-29 code = 355) BLOOD UREA NITROGEN 7 mg/dL 7-21 (BEAKER) (test code = 354) CREATININE (BEAKER) 0.69 mg/dL 0.57-1.25 (test code = 358) GLUCOSE RANDOM 113 mg/dL 70-105 H (BEAKER) (test code = 652) CALCIUM (BEAKER) 8.3 mg/dL 8.4-10.2 L (test code = 697) EGFR (BEAKER) (test 118 mL/min/1.73 ESTIM ATED GFR IS code = 1092) sq m NOT ACCURATE CREATININE CLEARANCE IN PREDICTING GLOMERULAR FILTRATION RATE . ESTIMATED GFR I S NOT APPLICABLE FOR DIALYSIS PATIEN TS. [employer] ID - BSPERIPHERAL BLOOD SMEAR - PATH REVIEW LAB [id number] 15:38:10 Test Item Value Reference Range Interpretation Comments PERIPHERAL SMR Microcytic anemia with REVIEW (BEAKER) mild anisopoikilocytosis. (test code = 4320) No significant increase in schistocytes. Marked leukopenia with myeloid left shift including occasional blasts. Thrombocytopenia with no significant platelet clumps or satellitism. [id number] Lubna Padron M.D. 5 (BEAKER) (test code = 2793) (CELLAVISION MANUAL DIFF)2021-08-30 11:36:56 Test Item Value Reference Range Interpretation Comments NEUTROPHILS - REL 2 % (CELLAVISION)(BEAKER) (test code = 2816) LYMPHOCYTES - REL 73 % (CELLAVISION)(BEAKER) (test code = 2817) MONOCYTES - REL 9 % (CELLAVISION)(BEAKER) (test code = 2818) EOSINOPHILS - REL 2 % (CELLAVISION)(BEAKER) (test code = 2819) BLASTS - REL (CELLAVISION)(BEAKER) 12 % 0-0 H (test code = 2827) ATYPICAL LYMPHOCYTES - REL 2 % 0-0 H (CELLAVISION)(BEAKER) (test code = 2829) NEUTROPHILS - ABS 0.02 K/ul 1.78-5.38 L (CELLAVISION)(BEAKER) (test code = 2830) LYMPHOCYTES - ABS 0.58 K/ul 1.32-3.57 L (CELLAVISION)(BEAKER) (test code = 2831) MONOCYTES - ABS 0.07 K/uL 0.30-0.82 L (CELLAVISION)(BEAKER) (test code = 2832) EOSINOPHILS - ABS 0.02 K/uL 0.04-0.54 L (CELLAVISION)(BEAKER) (test code = 2834) BLASTS - ABS (CELLAVISION)(BEAKER) 0.10 K/uL 0.00-0.00 H (test code = 2845) ATYPICAL LYMPHOCYTES - ABS 0.02 K/uL 0.00-0.00 H (CELLAVISION)(BEAKER) (test code = 3668) TOTAL COUNTED (BEAKER) (test code = 100 1351) WBC MORPHOLOGY (BEAKER) (test code Normal = 487) PLT MORPHOLOGY (BEAKER) (test code Normal = 486) ANISOCYTOSIS (BEAKER) (test code = 1+ few 961) MICROCYTES (BEAKER) (test code = 1+ few 965) POIKILOCYTES (BEAKER) (test code = 1+ few 966) SCHISTOCYTES (BEAKER) (test code = 1+ few 765) OVALOCYTES (BEAKER) (test code = 1+ few 477) ROBBIN CELLS (BEAKER) (test code = 1+ few 474) [employer] ID - [id number] W/PLT COUNT & AUTO [id number] 11:36:55 Test Item Value Reference Range Interpretation Comments WHITE BLOOD CELL COUNT 0.8 K/ L 3.5-10.5 LL (BEAKER) (test code = 775) RED BLOOD CELL COUNT 2.32 M/ L 4.63-6.08 L (BEAKER) (test code = 761) HEMOGLOBIN (BEAKER) 6.3 GM/DL 13.7-17.5 L (test code = 410) HEMATOCRIT (BEAKER) 18.2 % 40.1-51.0 L (test code = 411) MEAN CORPUSCULAR 78.4 fL 79.0-92.2 L VOLUME (BEAKER) (test code = 753) MEAN CORPUSCULAR 27.2 pg 25.7-32.2 HEMOGLOBIN (BEAKER) (test code = 751) MEAN CORPUSCULAR 34.6 GM/DL 32.3-36.5 HEMOGLOBIN CONC (BEAKER) (test code = 752) RED CELL DISTRIBUTION 19.3 % 11.6-14.4 H WIDTH (BEAKER) (test code = 412) PLATELET COUNT 19 K/CU MM 150-450 L Discordant re sults (BEAKER) (test code = compar ed to previous, 756) clinical correl ation required.Patien t received platel ets. MEAN PLATELET VOLUME Unable to report due (BEAKER) (test code = to abn ormal Platelet 754) population distribution. NUCLEATED RED BLOOD 0 /100 WBC 0-0 CELLS (BEAKER) (test code = 413) Urinalysis w/Microscopic + Reflex to [id number] 09:24:27 Test Item Value Reference Range Interpretation Comments Color, UA (test code Yellow = 5778-6) Clarity, UA (test Clear code = 5767-9) Specific [place], UA 1.021 1.001-1.035 (test code = 5811-5) pH, UA (test code = 6.0 5.0-8.0 5803-2) Protein, UA (test 30 mg/dL Negative A code = 49823-8) Glucose, UA (test Negative Negative code = 365) Ketones, UA (test 10 mg/dL Negative A code = 2514-8) Bilirubin, UA (test Negative Negative code = 65183-5) Blood, UA (test code Negative Negative = 31326-9) Nitrite, UA (test Negative Negative code = 5802-4) Leukocytes, UA (test Negative Negative code = 5799-2) Urobilinogen, UA 0.2 mg/dL 0.2-1.0 (test code = 27051-7) RBC, UA (test code = 3 See_Comment [Autom ated 89851-9) message] The system which generated this result transmit pradeep reference range : /HPF. The reference range was not used to interpret this result as normal/abnormal . WBC, UA (test code = 14 See_Comment [Autom ated 5821-4) message] The system which generated this result transmit pradeep reference range : /HPF. The reference range was not used to interpret this result as normal/abnormal . Bacteria, UA (test None Seen code = 48638-2) Mucus (test code = Few 8247-9) Squam Epithel, UA <1 See_Comment [Automate d (test code = 27647-5) messag e] The system which generated this result transmit pradeep reference range : /HPF. The reference range was not used to interpret this result as normal/abnormal . Crystals, Urine (test None Seen code = 38754-1) Amorphous Crystals Rare (test code = 99769-1) Specimen Source (test code = 2795) FOREST (test code = FOREST) [employer] ID - [auto][employer] ID - tech Lab Interpretation Abnormal (test code = 47506-5) [facility] + Reflex to Culture 2021-08-30 09:24:27 Test Item Value Reference Range Interpretation Comments Color, UA (test code Yellow = 5778-6) Clarity, UA (test Clear code = 5767-9) Specific [place], UA 1.021 1.001-1.035 (test code = 5811-5) pH, UA (test code = 6.0 5.0-8.0 5803-2) Protein, UA (test 30 mg/dL Negative A code = 28694-8) Glucose, UA (test Negative Negative code = 365) Ketones, UA (test 10 mg/dL Negative A code = 2514-8) Bilirubin, UA (test Negative Negative code = 19807-3) Blood, UA (test code Negative Negative = 81875-3) Nitrite, UA (test Negative Negative code = 5802-4) Leukocytes, UA (test Negative Negative code = 5799-2) Urobilinogen, UA 0.2 mg/dL 0.2-1.0 (test code = 64715-1) RBC, UA (test code = 3 See_Comment [Autom ated 98145-7) message] The system which generated this result transmit pradeep reference range : /HPF. The reference range was not used to interpret this result as normal/abnormal . WBC, UA (test code = 14 See_Comment [Autom ated 5821-4) message] The system which generated this result transmit pradeep reference range : /HPF. The reference range was not used to interpret this result as normal/abnormal . Bacteria, UA (test None Seen code = 92001-3) Mucus (test code = Few 8247-9) Squam Epithel, UA <1 See_Comment [Automate d (test code = 77990-8) messag e] The system which generated this result transmit pradeep reference range : /HPF. The reference range was not used to interpret this result as normal/abnormal . Crystals, Urine (test None Seen code = 97469-4) Amorphous Crystals Rare (test code = 54920-4) Specimen Source (test code = 2795) FOREST (test code = FOREST) [employer] ID - [auto][employer] ID - tech Lab Interpretation Abnormal (test code = 61708-8) [facility]LEX URINE [id number] 09:24:27 Test Item Value Reference Range Interpretation Comments COLOR (BEAKER) (test code = 470) Yellow CLARITY (BEAKER) (test code = 469) Clear SPECIFIC GRAVITY UA (BEAKER) (test 1.021 1.001-1.035 code = 468) PH UA (BEAKER) (test code = 467) 6.0 5.0-8.0 PROTEIN UA (BEAKER) (test code = 30 mg/dL Negative A 464) GLUCOSE UA (BEAKER) (test code = Negative Negative 365) KETONES UA (BEAKER) (test code = 10 mg/dL Negative A 371) BILIRUBIN UA (BEAKER) (test code = Negative Negative 462) BLOOD UA (BEAKER) (test code = 461) Negative Negative NITRITE UA (BEAKER) (test code = Negative Negative 465) LEUKOCYTE ESTERASE UA (BEAKER) Negative Negative (test code = 466) UROBILINOGEN UA (BEAKER) (test code 0.2 mg/dL 0.2-1.0 = 463) RBC UA (BEAKER) (test code = 519) 3 /HPF WBC UA (BEAKER) (test code = 520) 14 /HPF BACTERIA (BEAKER) (test code = 517) None Seen MUCUS (BEAKER) (test code = 1574) Few SQUAMOUS EPITHELIAL (BEAKER) (test < /HPF code = 516) CRYSTALS, URINE (BEAKER) (test code None Seen = 1521) AMORPHOUS CRYSTALS (BEAKER) (test Rare code = 1584) SOURCE(BEAKER) (test code = 2795) [employer] ID - [auto][employer] ID - techBASIC METABOLIC [id number] 06:09:15 Test Item Value Reference Range Interpretation Comments SODIUM (BEAKER) 138 meq/L 136-145 (test code = 381) POTASSIUM (BEAKER) 2.7 meq/L 3.5-5.1 L (test code = 379) CHLORIDE (BEAKER) 108 meq/L 98-107 H (test code = 382) CO2 (BEAKER) (test 21 meq/L 22-29 L code = 355) BLOOD UREA NITROGEN 8 mg/dL 7-21 (BEAKER) (test code = 354) CREATININE (BEAKER) 0.67 mg/dL 0.57-1.25 (test code = 358) GLUCOSE RANDOM 111 mg/dL 70-105 H (BEAKER) (test code = 652) CALCIUM (BEAKER) 7.7 mg/dL 8.4-10.2 L (test code = 697) EGFR (BEAKER) (test 122 mL/min/1.73 ESTIM ATED GFR IS code = 1092) sq m NOT ACCURATE CREATININE CLEARANCE IN PREDICTING GLOMERULAR FILTRATION RATE . ESTIMATED GFR I S NOT APPLICABLE FOR DIALYSIS PATIEN TS. [employer] ID - [id number] 06:07:41 Test Item Value Reference Range Interpretation Comments MAGNESIUM (BEAKER) (test code = 1.4 mg/dL 1.6-2.6 L 627) [employer] ID - [id number] ID - [id number] ID - [id number] 23:50:55 Test Item Value Reference Range Interpretation Comments MAGNESIUM (BEAKER) (test code = 1.3 mg/dL 1.6-2.6 L 627) [employer] ID - BS(CELLAVISION MANUAL DIFF)2021-08-29 23:34:43 Test Item Value Reference Range Interpretation Comments NEUTROPHILS - REL 2 % (CELLAVISION)(BEAKER) (test code = 2816) LYMPHOCYTES - REL 69 % (CELLAVISION)(BEAKER) (test code = 2817) MONOCYTES - REL 3 % (CELLAVISION)(BEAKER) (test code = 2818) EOSINOPHILS - REL 1 % (CELLAVISION)(BEAKER) (test code = 2819) METAMYELOCYTES - REL 1 % 0-0 H (CELLAVISION)(BEAKER) (test code = 2821) MYELOCYTES - REL 1 % 0-0 H (CELLAVISION)(BEAKER) (test code = 2822) PROMYELOCYTES - REL 4 % 0-0 H (CELLAVSION)(BEAKER) (test code = 2825) BLASTS - REL 19 % 0-0 H Result called t o (CELLAVISION)(BEAKER) [id number] Informed Dr (test code = 2827) Delfinofritz @ 23:34 08/29/2021 NEUTROPHILS - ABS 0.01 K/ul 1.78-5.38 L (CELLAVISION)(BEAKER) (test code = 2830) LYMPHOCYTES - ABS 0.28 K/ul 1.32-3.57 L (CELLAVISION)(BEAKER) (test code = 2831) MONOCYTES - ABS 0.01 K/uL 0.30-0.82 L (CELLAVISION)(BEAKER) (test code = 2832) EOSINOPHILS - ABS 0.00 K/uL 0.04-0.54 L (CELLAVISION)(BEAKER) (test code = 2834) METAMYELOCYTES - ABS 0.00 K/uL 0.00-0.00 (CELLAVISION)(BEAKER) (test code = 2836) MYELOCYTES-ABS 0.00 K/uL 0.00-0.00 (CELLAVISION)(BEAKER) (test code = 2837) PROMYELOCYTES - ABS 0.02 K/uL 0.00-0.00 H (CELLAVISION)(BEAKER) (test code = 2838) BLASTS - ABS 0.08 K/uL 0.00-0.00 H (CELLAVISION)(BEAKER) (test code = 2845) TOTAL COUNTED (BEAKER) 100 (test code = 1351) WBC MORPHOLOGY (BEAKER) Normal (test code = 487) GIANT PLATELETS (BEAKER) Present (test code = 313) ANISOCYTOSIS (BEAKER) 3+ many (test code = 961) MICROCYTES (BEAKER) (test 3+ many code = 965) ARTIFACT Present (CELLAVISION)(BEAKER) (test code = 3432) PLATELET CONCENTRATION Decreased (CELLAVISION)(BEAKER) (test code = 3438) [employer] ID - [id number] ID - Suzy Heaton comments: Slide comments: COMPREHENSIVE METABOLIC [id number] 22:34:22 Test Item Value Reference Range Interpretation Comments TOTAL PROTEIN 5.4 gm/dL 6.0-8.3 L (BEAKER) (test code = 770) ALBUMIN (BEAKER) 3.0 g/dL 3.5-5.0 L (test code = 1145) ALKALINE PHOSPHATASE 67 U/L 40-150 (BEAKER) (test code = 346) BILIRUBIN TOTAL 0.7 mg/dL 0.2-1.2 (BEAKER) (test code = 377) SODIUM (BEAKER) (test 137 meq/L 136-145 code = 381) POTASSIUM (BEAKER) 2.6 meq/L 3.5-5.1 LL (test code = 379) CHLORIDE (BEAKER) 107 meq/L 98-107 (test code = 382) CO2 (BEAKER) (test 20 meq/L 22-29 L code = 355) BLOOD UREA NITROGEN 8 mg/dL 7-21 (BEAKER) (test code = 354) CREATININE (BEAKER) 0.69 mg/dL 0.57-1.25 (test code = 358) GLUCOSE RANDOM 144 mg/dL 70-105 H (BEAKER) (test code = 652) CALCIUM (BEAKER) 7.6 mg/dL 8.4-10.2 L (test code = 697) AST (SGOT) (BEAKER) 6 U/L 5-34 (test code = 353) ALT (SGPT) (BEAKER) 28 U/L 6-55 (test code = 347) EGFR (BEAKER) (test 118 ESTIMATE D GFR IS code = 1092) mL/min/1.73 sq NOT ACCURA TE m CREATININE CLEARANCE IN PREDICTING GLOMERULAR FILTRATION RATE . ESTIMATED GFR I S NOT APPLICABLE FOR DIALYSIS PATIEN TS. [employer] ID - BSOperator ID - BSLACTIC ACID, [id number] 22:25:42 Test Item Value Reference Range Interpretation Comments LACTATE BLOOD VENOUS (2) (BEAKER) 1.01 mmol/L 0.50-2.20 (test code = 2872) [employer] ID - [id number] 22:13:58 Test Item Value Reference Range Interpretation Comments PROTIME (BEAKER) (test 17.6 seconds 11.9-14.2 H code = 759) INR (BEAKER) (test 1.47 See_Comment [Automat ed code = 370) message] The sy stem which generated this result transmitted reference range : <=5.90. The reference range was not used to interpret this result as normal/abnormal . PARTIAL THROMBOPLASTIN 47.0 seconds 22.5-36.0 H TIME (BEAKER) (test code = 760) RECOMMENDED COUMADIN/WARFARIN INR THERAPY RANGESSTANDARD DOSE: 2.0 - 3.0 Includes: PROPHYLAXIS for venous thrombosis, systemic embolization; TREATMENT for venous thrombosis and/or pulmonary embolus.HIGH RISK: Target INR is 2.5-3.5 for patients with mechanical heart valves.CBC W/PLT COUNT & AUTO [id number] 22:11:15 Test Item Value Reference Range Interpretation Comments WHITE BLOOD CELL COUNT (BEAKER) 0.4 K/ L 3.5-10.5 LL (test code = 775) RED BLOOD CELL COUNT (BEAKER) 2.09 M/ L 4.63-6.08 L (test code = 761) HEMOGLOBIN (BEAKER) (test code = 5.5 GM/DL 13.7-17.5 LL 410) HEMATOCRIT (BEAKER) (test code = 16.4 % 40.1-51.0 L 411) MEAN CORPUSCULAR VOLUME (BEAKER) 78.5 fL 79.0-92.2 L (test code = 753) MEAN CORPUSCULAR HEMOGLOBIN 26.3 pg 25.7-32.2 (BEAKER) (test code = 751) MEAN CORPUSCULAR HEMOGLOBIN CONC 33.5 GM/DL 32.3-36.5 (BEAKER) (test code = 752) RED CELL DISTRIBUTION WIDTH 20.0 % 11.6-14.4 H (BEAKER) (test code = 412) PLATELET COUNT (BEAKER) (test code 12 K/CU MM 150-450 L = 756) MEAN PLATELET VOLUME (BEAKER) 11.5 fL 9.4-12.4 (test code = 754) NUCLEATED RED BLOOD CELLS (BEAKER) 0 /100 WBC 0-0 (test code = 413) Chromosomes Cancer [id number] 14:21:40 Test Item Value Reference Range Interpretation Comments Scan Result (test code = See scanned report [id number]) FOREST (test code = FOREST) See scanned report [facility] Cancer [id number] 14:21:40 Test Item Value Reference Range Interpretation Comments Scan Result (test code = See scanned report [id number]) FOREST (test code = FOREST) See scanned report [facility] CANCER [id number] 14:21:40 Test Item Value Reference Range Interpretation Comments SCAN RESULT (test code = See scanned report [id number]) See scanned reportBone Marrow [id number] 11:21:38 Test Item Value Reference Range Interpretation Comments Case Report (test code Bone Marrow Pathology = 104) Report Case: [id number] Authorizing Provider: Alivia Solorzano Collected: 08/18/2021 03:45 PM Ordering Location: [address] Received: 08/18/2021 04:18 PM SERVICE Pathologist: Alicia Matt MD Specimens: A) - Bone Marrow, Bone marrow aspirate B) - Bone Marrow, Bone marrow aspirate clot C) - Bone Marrow, Bone marrow core biopsy ADDENDUM (test code = f4qbaIWvHMXzcHZ0UmVkHL 3381) Lhe5opo3QfnQOfjDIpDWow hFYjuhNtmk35vMW5aL61IN 5dPZXzTdB7NNHxqcO7Waa4 ECBjLDAxbBAcT837a6zox9 xerlPykVM8tKdyRDOxqmiw VfY6MKehYLCbhrdlZVw8NR igGDZxsAS2EWRnzIAbP8Wd QBCyNN1axrg9PGW9LPuwTN GrRzZ5MXRoqCRfDAWjjGxt AAdig895UKI9BrZgFNUfte TvvDjnnY0vCoHqEVLYINCg j58oYh6nWRJsZNUmMRCbDv BUbyByZXBvcnQgcmVzdWx0 yzNbTkObiHLhrO6zi32rXO JtIQk9y8keOcobRHZmtKKu VCIaHMMdiM2zrLHsYHX0JJ 9yp2zvjy5jqTNhXSLmuOHp mU9ci39iNWAqZZy3o9slBM Foe1qiAZVtwb6soLAcUP9q qROsz4PcvQ03nTFsFPbxZU FsbCBjZWxscyBhbmFseXpl NL2wgMCbHTmujshcyYkuZP ogNDYsWFlbMjBdXHBhclxw YXIgUGxlYXNlIHNlZSBzY2 OfsuEnI6N0oTMdgQYtBR2b z3oood0vmKSpHIXalV8tiX Lyo8XbR87daUtlxFZroiQs gBg5xx4ysKGdgH== DIAGNOSIS (test code = v6vpbZBfSLRse5ftIHHmdU 3220) FuZzEwMzNcZnRuYmpcdWMx IHtccnRmMVxlcGljOTYwMl jyjeOuZJNrvFMrZ9Vywkzm UNagGD0bXY4ncGmndPWazB ViUDKdMtHil5jpf699dYDq d5sxQAJOgggnzMy2jDjgB4 8wa2N9UxxbO51jhJKiBYR9 QOXbZDCilOWaQDKpJYN9PE MkhEDyD9blJKOwRP3egudo ATryWAppVEMdmAP4WBPqoI NwM6RnZUNjYPwtHBPuwpt9 NsWmNa5zvEVyrDhaNMsgFR EmJCJrVCvtITJcYsXdZg0B DBRZGLTPB5wnGEVKHMXTYO UmFZLOU6SnDGQFZSZEEHQQ KOWZZqqFVNBVHA4ZR1p8MJ MjxpUzHZwZJQTLQ0YGDGMR WHKiMNluQCrtMDFDTi5CSK dJVEggVFJJTElORUFHRSBI HE3WBN3XF9mGG2kYIQCFGX BBREVRVUFURSBNQVRVUkFU ZG7PNPPttsMjQI8MJV5WMw UBX1mTI1eBND8TWHvCOESL X1CYFL7CLWxJCUPoFTHFYP NUT6UgL7UpPJ2GB7kMLT3A TlQgQlkgTFlNUEhPTUFccG PuGO3vKXCBXkORT3MACUlG E01qR8SRTlASSVVpbkqtEM UdRFEQHMSABBFPFADIHJ8L FRflmWGfCZ6hZw5YXD5EUN QEHwUUA9MDD7MMNe7QMSRj NO2QPEySHKXcxaNhXQORDz 3IRy0QXSCZOWYIDDVktIVl oNlaoiBzFZmdd9KsELjvYK UrDV3mxFsdMXEoWJ2uDSYr X5wonQ3fyxn3KcJjCAWlZr G0JCQeeeW0Lyp8TTZfQNgd u7kkc8CnFWMhIOu0yFtaOo TuSNTnl4zjucNxJfNiSIWr DYSjCCDlyEYdW537y2vil6 ywkjRdvPQ3CBIwWVZ4INxb suTyeeM7UFzouEEmNvT2QE tccmVkMFxncmVlbjBcYmx1 SSUoG334FHJ1fCkmf9jqZE L8BGVaYLByOpLtRs1deVNb R715ONIdLHFZLTVoxEv4KT VqrqNykvXpzAIGd923W094 m9fmWCUkmvKmbMrZhylte2 waJ518IYXjzDQoqbPwLoQv SGFdqFPbeTV5KJEbKH9mgj ycXXtrKFzeQVYxzdU7YGWn iOYeU7IoLNTrVJ5cdmpzFT P7CAssFIPnIWB6KyKvXRAh d9Ifutl5WgWltn1lre63NZ E2w6TahXdwGTC7NHJ2ImCh Vp1iwISaJNHvHN9gTzEphY EmIEVlqx29lYwfFGfkVAG8 FXMkajOak9Kqv0lcEnSatw EtW8txN1ViSDYaAPYqWIGz NqXojgNfq4War1YsuBTynM q5o6ggVTMpYCCyxQndg5qa TFW7YTNlxXFoG4eqnE9tWP CrCT4oscmfu3fyPSizNRxa EKTmvWQ3dxQ4FVRncJVsA7 AthA2pFZNsXKifMRRilir7 SyXdOl0qkMAqbEplJDkfZw twYWdlXHBnbmNvbnRccGdu ZGVjXHBsYWluXHBsYWluXG YwXGZzMjRccWxcbGFuZzEw MzNcaGljaFxmMVxkYmNoXG XsTVobG2zlWiVzKcKiScd7 OVOexNPoUOTuVxf0MMZwtV RqEHWPdUadjN9rIXJddQib oI7jbKG7RPBsonAcvJAXbX 6oZVZVdI4rBqG7JbJjCjP7 LAS0MPCauGNccQ9= COMMENT (test code = u1rqgREwVORczCT6SiGnSF 8995) Dge9mad0OexCWawVQgEBct qKYtgbBlgq37kCR0oK43CX 1kOMYnBjG0BOYaurZ0Hyh0 AHVnEQQlpHErF200o4pll8 pzkxEuyEY8pJgdXEJfrakt CzR4ZClxESBbelecZDq7ZF vyGJHfoYL4MWDpgSNeM0Om QPTjMW7ypdi6LWE0CPzvSE SjJvP2GTTnzXWdGLFbzGtq ZSydj435MDH5SkSqUECbfd TumIbozQ4fBxOvVZTPoIPn M24fmuZsbB3uZWjtUaMhtA 50JOM5qW9sRLYtxYEvuHKh bJDxEwQgWQG4Przpb3gng5 Tihd1vrP4id6C7rTolDCFs X8KuzEPjv3Y4nJI9oR5wMJ BhYmVycmFudCBUIGNlbGwg gU1hoXhfcMeqexBvqvYykl CbUGJuJFQxgmOqwK91ar3x pUZkq7Q2yLnhXY45KUkqPv ouz0NuJwFAfBBwvXIkiu18 KHdwFEb7tGRwC7WgrVMrXE IsIHdpdGggbWlsZCBtZWdh fV6fbXDagMegDJUxREJ8em RgQBabVH07IIttqXJqMX1w YEJebSYlju0iMMTauDYgDG 92bokxp5lnV6zzpYN4KTLu NCPuA41oODBqfTI7zmXkAZ Kwx2AtMGfcjLLcRB9vSH1v ghRah0niI0qgEX7xEPkwwS Qks9PgLE2iuLwzhBZpWCYs QIWjT4Eha9JmeI42b1n9CD 1lbnQgYnkgbHltcGhvbWEg xYChoIEwfwWhWeymDZ0zV3 RneJ48bQAlJTkkTBRcjpLz rrasHIJwMHLgNLK0ePDiRP zfhFamZtKjzwLoy8Z0ORUh iI6uDIZiTLWdwcI1MOLfDC ZzwuV8eZ2dlNLaaH== CPT Code(s) (test code w9houXTaDSJbhWH0AsAiTT = 3357) Uxs7ndn8QoaZXjtGAjMAaq yPVcufXqxg00dUA1uU89BA 9qHSLxFyQ1WWDylsV9Sml8 EDWcFYTgsVPkS483r2ibo1 hdvfDuzZR0dKsuOCGhthdh QpO2RLoyFGFdixvnELl7JS khVXZjfHG9TTRmoDXcP2Mz NTQvZH1wunk7IKN6ANdnIP JlMxG5LBWzjCDfKDXuiDet UHvld435DBS8NfGqLJPxhz XlbJxhoA5eJnQeWwW8UAU8 QVirAJOxMNn9ZHj9NaT7YV ayWbgnRAxdGUQ5SBu4HhFc DmA6NYH2TiC1ORZ4YVd7Bc QxIHggMlxwYXJ9 CLINICAL HISTORY (test f0ogvMGzFKZdgLL5TzNfCM code = 3356) Eci3hgo2HroOUuiWNmAJbm yXZijoTwtd04vOK2pE48YM 0eSGJfSvT0NDTfkeA0Yjk4 PLPgZWKgrNRlR189n1isl1 qjivCtmUV2xKthRBWwkjqi NlC6YHaxGLAvutyxEFz7ZV apLGZdrYC1CHVwrWUhA0Yf SNCgPO3iycy7ZFR6IWlrEF SdYkE6HUAnmSOaZTMtmWvb XVvjt921MWY5TqZgYVOpav UtoTslgJ6xYiEuXPAGYFCz clMsAZyqX42ex3pmPD1aRV IQFtFwhZ2unB4xCY2opTEz fQ== SPECIMEN SOURCE (test d3qvrWUpVJWvhHV8GaTeNW code = 3377) Odz3tdf7LztQGsvRIkTKdl qDDobgUrhx54dYT6rT99YH 7uNOZzLiK6GCWvqyG0Ndx1 VQMrCEBbxHFnZ251w8vas0 ohnkEzpDW2bHroTOKelhfn PpT5HNndIHRzgxtkBVq2BZ ozLMKnhQR5NGBomXPcS0Vk TYGcXM3ktpo3BZJ2YHdoAT KdMrQ6TBIyhEXlYBGbuVfp FUehp522UJS2XlEsDNGiqy BrsVkrwI9wNkFzYDRPg06r KZ4xeaVuoxXmr0AhfjM7KU pwB4qouAblNK9mRNPvvpBf MylmwBU1KpMtpiFryGZriF QwJVPoyOGhtT9nES4wvFSr fQ== GROSS DESCRIPTION (test j4rseMSpEQHoqVQ3ByAkBR code = [id number]) Hdr1khw4GrrUHcbKQwOIom wWXtntCpnj26lCX0lO76ZS 3rAOIzXgS9FTDuyzO7Fpv8 PIGgLIXpcVMwH997n7mba7 znsoSvcLQ7FVWuUROpY5Am ZN4nFPPdbPMnC78joMQnQQ Y8UBQiDGZkoFEzGFEpRXN1 VPOybYPiI1ifAAAnEX9oie lmSExkOIteIEFmjZG3WOFg dBCyY3SrPJRtATbfIVNiin u2IkOcSz9flVGdxMrmTYip VFFeo8nrRQNdqPZyYLY8OK qzoWDjWDQrKZIuZQh6TQKj RKsysUGrTI7wlGiwRmpieA nuh3KeuQKaPZshHXVjOWZi ZDvjUORpV6VPIXHrFcP8AK TmYOEoFMi9TGnlO4LFGFAf XUI1SDE4GhM0PqX5CBy7RR FADs7oVFcbYdMzNqg3AIB4 SfF5XGfevWXjUTgeUxxsBA pkMDLjiWLoDMycojO1TXXq ULjtITKyNgQfHT9kVx6cGS VVCXWvk4hhXQSzexbmzpLz PJIqJ5MfvuWgODQgMHQhCI ZlcmFsIGFzcGlyYXRlIHNt NUOnglofdL7zyWEaaM9vUY 3xIOMsfRacSYFjc2AbhQXh mvDrfANoga71KTQirAOjVQ Q7GF0vFXGibclcROWjVULm NBR9QRdidO67hDUzOOKzCV DxeJLadSbfZdxgvBngv2Wc dCBcXGlkIDUxMDAyIFxcZG KeW8DFGKBvOoF4TIIoGCJj KWo7DTuoU0TJJNPoOAB7EV J8XCB1YiW8KVk3OVAOCn6w KPyaGNV0QVAcUJC0UqH8BA xcdCAyIFxcZmwgXFxmIEFy xIScIQfpvrD0CXBlWoAfUq 4ySi2eDSUPQBIbu3ptLXFn clxmczIwXGNmMSBSZWNlaX XtPLMwafPgZRZuSeR5VADg CsW8HSSpAeAjnK8kWIDyoW 30NeSOeGNgg2XyT6unFR3l eKVue1WqmYgsrvScNYQgOC BlbnRpcmVseSBzdWJtaXR0 WNXskZ1pFrKgw6zvfPmdb6 VjdGVuZFxwYXJccGFyZFxz kU0uFyZyy7uvvZw7IPptjf Q6IBKxde01HVmiKQXhN7Nw D2DfOQkeDQM4YVCbOyIpCJ MaXG3CXkGeLJSzIKK9QiAz KJa4HIm1VL7KJkZdHSFfEM d2FWv3HFOiBSh0FAxpWP6Y WBS7NMP2SYZ3TCL4WRE2UV BcXHQgMiBcXGZsIFxcZiBB zelsiNNxIU6tuNerszLzAM FmBSXPIuFDg99dEW1pbmKz ez6ttLDvPAEqOxEsQ3OhCV FpN5PxuzQzCBymRMTnca9z bGluIGlzIGEgdGFuLXJlZC Qfc68qBBVeqaFldYJyn9Wc cO8wJXGiYHMusCLsagEpZF 1ebUoqp5EdwRv1lBUwEJMt xHzlFVg0NHyyQQHfIVMtch VdFWItiSClXzweFRKvd87u JCCenfjuGPUoB5AfkXInYN lbXP6eQDuLNUKaYZNTPPj8 GIBscKKhFEM1ES8dvQjbEZ NpT8WwU4AzksY7DHAwrb2= MICROSCOPIC DESCRIPTION i3gejSKjFBHssRG7WiOjZN (test code = 3371) Wwv9fuq5VloRYkaGBbXSte xHTfdvSnpd81uEL2wM63KW 2cJKBySoE6PNReyrB6Mlt1 GPCxXYUrzCCeB876n7pnd0 mstzGvkDK8pUfjYBMiklog GxJ1XTnjZBXskqarYHh3AP ecFOLvgPB7BKGrjKKqB8Nn EXWdKW7niya5FIM7KYsmJW MbHbY6EOSeuZIjGXDjoHry OQagx698JZN9SkThOJJwdl IdhPesaQ0fQtKxOcFZI49R WW4LLsSIBaMMD9YOYtDXUH mgsWEmIQFOAQiXPPl2VTJu suTKf6CcgsK9JK2zPMFjVX E7QAEpFMFpdxJNc2WqcLXh kUCglP93OGQCZAFrbFT6XU hnDVTzpJYwGF8LMfTBAsFJ LCTPJPPVEqVFQVteF46NZq N0EL92xNJqxuTuZpIeDSsj ndDqs4EnhDKhAjQdZSGikW HhBXPlXXSeAbqyy9DjOAxu FFEsSPFvPLJCut8buCGep1 Q2iIXhZVmmGTTdHCLhBJYp IOizlS6rfTJumc3XMZUgrL cyhU5xtVLsmqDjvCQpAWY4 ZBWbBIByyrKhB7FgT03ozp UdOQXnlsAhyXbwA6x1JMOr HUFvusD5PXSnVYTwc9jgv9 BoaWxzIGFuZCBwcmVjdXJz x5AbASmlCOBnRMYmPAQNCG GirGqnlTPtTB7qSLXqHTN8 cnNvcnMgXHBhciAxNyAgJS LJmmg7zSHcsSXskLLxW9Ta l86keyBffEOsQJRaUXHnQC tvkBsrZ6r7NSJaXSGxbtGx LHMqBT2flo5xtQUfe5ypLD KcIIFiEBNCvKIqkGGrE7Ur bHNccGFyXHBhciBNeWVsb2 lcNbVFmqe9cHXwpQHqIaP8 eR95LZW9ToMfQyKVu1HqCK eeeGHuMLEwDDY0ipekKH1p dCBJbmNyZWFzZWRccGFyXH DncuHJalg6fUBxiJ6xIMVz ilfyIg7ykKTdLAVbCXMfe2 8cbIJ7IWDwGER2fjK1nK9j LtCBD6Jyx4sbybOrUHJbes 1zIHdpdGggbWVnYWxvYmxh e9TgKpUjPJV2jNEkdf3syM FyICAgICAgICAgICAgICAg ICAgICAgICAgICAgICAgIC FwVHScbbCTwESzs1SsmTRx jIL1CV2mgn2qgTWukkBdA1 1kkHsjqLNneJQ4dMAwlWok mt2kN9AzFSJjs70kqFMbl4 YhzfG5yLIdFS4fU7Tve1Uz LXH2mLIkUfCjxCYwBEKySW AgICAgICAgICAgICAgICAg ICAgICAgICAgICAgICAgIC AgICAgICAgICAgICAgIFxw KCOynAByRJ7nJ2XgXEW0m7 Q5rJGaWrJoCFErz6ZmfSQb bmQgYXBwZWFyIHVucmVtYX VeBQObTP6hyHDfVNJbkoEE dGFpbmFibGUgaXJvbiBhcH OiZEZbRMJkY4AxSWPwIHQy LNOrWIEhyhCjxuFgfc3nQU S9EFbkWZRqcnRrqe5dCWCj kvA6hBQhAFOelWXclCUuj2 8aIFNrENKuecCCczYyhJ0z HMQwUKJld5EiTSI7koGddu PxrIGbaaGpLapuEQ8kZPQu clxwYXIgICAgICAgICAgIC AgICAgICAgICAgICAgICAg ICAgICAgICAgICAgICAgIC AgICAgICAgICAgICAgICAg ICAgICAgICAgICAgICAgIC AgICBccGFyIEJPTkUgTUFS Ie0BIAPQA4KMCAwrdUAuGS Wut8FgbY2nPDDbjVSecFBc uJQrIUSxs9DiUMR6Up8mqX ltYWwgKGZldyBzbWFsbCBz cGljdWxlcylccGFyXHBhci LAnXTosfFblZd5ySNgRZat NzAgJSlccGFyXHBhcmQgQ2 LbdULyWFLwH69bkO0scNMa f95ds7tonIgvxfM1ydMjl8 WqgbM9FKOayODvhcQmQJ5g IHRvdWNoIGltcHJpbnRzLi ReXWopPXQmXs3oeMDhSWOz u3JrroKkd01wLI0cUK07US voeQShDY9eOQJyeIExzx4t FDEtniUrxIXav3KtHYPoWN TbioPtr0w8hROar83yjFA3 STUwUMQ1jmL6zZ0yGqPxOX SzeVVtSG8bQ4XiZZM3f0Z3 fDXqDGOiVVPhQXGpvWN1NY O9zNJnIJ25RIVcfCunbP1w XC1xwqxyZcerUM7fkhLqq9 coD3czCZBwIKXfaSOrLCGb ICAgICAgICAgICAgICAgIC DxgREcBMplpBHqv9gcc3Yc L5rqwQwnQWetc5L8QEjoxg LttaCztFQiKj8pmKUwYH0s JVWqJ4Nyw38zRM9sGDRaAM LjiG00YFCrCZFcgI4mk1tg u1r0bISkrZNzz6TcqTR2GQ Bge099ym3jxm0ntFLvLFEL MyBoaWdobGlnaHRzIHNjYX C4USXjUNNnrRCbvBOVOXy3 vDElc3T1mLQnUkRKOYHjMZ maJOVgu2FptKhvbYi0XT9g G5Y5iEHjYmarTPOjIWHvUY AgICAgICAgICAgICAgICAg ICAgICAgICAgICBccGFyIE JvbnkgdHJhYmVjdWxhZTog IFVucmVtYXJrYWJsZVxwYX VoeGNaUWF6AGbbWLJxSEFp ev9yFJztEHLiBLGkvyYjQg MhDPQie43nRR0jwOEnopYx xJRvsmZeKUYlj1AhCVNtz2 5nxEyrMKNdi2Cez6LgxKnc yq4sBQonIEIskULiCAYhtg GQKKGZCNqKFmOFZRCAS85P OsjdFIGngPEaINSHV4R6IT SwAsFBZYNfAKEzYOMocM5v gmUfKlAkPeDGw4Jfb1E2sH zvXABeTKHbt8Mbf3Awkr3k bBRoVK7ttMMlLF3dj73kv1 evbMskD3f4a1Awmm7xpWVh ICAgICAgICAgICAgICAgIC AgICAgICAgICAgICAgICAg VMNowyAGTcJdQjr1DCCiOZ 4blv7vwQAjafUoqS5dWPGy IENvbXByaXNlZCBwcmVkb2 6ddtYksBh8GL1kSR6qxUGh UIUpaeBeiZsnL8z6BZHoPX uolMojzO97rWOwR7ZamtGh JEWfJJ2rK8DfeK0yLUkafD NomHHeoZuslBEcQO31WJsi aWQgZWxlbWVudHMuICAgIC AgICAgICAgICAgICAgICAg IFxwYXIgICAgICAgICAgIC AgICAgICAgICAgICAgICAg ICAgICBccGFyIFBsYXRlbG U5cjjzVGHsE1PzDECiIBAo iqGdeU3tKZBwFOnraBhqIC FuAB67eERmbQvyjO1hKL6g ylptNwepFW1crwXui0qrK1 oiKRHeHRH4fpKkMykrOTRf cGFyfQ== SPECIAL STUDIES (test r9dhiQUmETEuuWB5KmBcCI code = 3376) Knk2txa9DflMGflKJxFEmu cBJwfdOthz17vOJ6rU57NX 4mQVGyJoJ5XELoeoX1Gcl1 YCXfGHRwlYCcD104SDDzFF KnnDlgwdi5kO24DKLtrP9m dGJsIDtccmVkMFxncmVlbj QaNri5SBU7bAmxIDDfhnhz UnZ9DSteOTXanusbEXa1XE zdYWAhfTS0WYOxoUYaC6De XZBdLR9extz6NKB6CEsjYA YmVvT5UMOhjKBvIZFqhPzh YPtjv349IEY8BxEwIVAfyv PybGmnbY2rItFyNpMvGjvz ZjEgVGhlIGludGVycHJldG Z6kK3vNV7eBNAsiKCsO5Gl MEAlrwXfhREsOQB1cRVacS RoNI9aKLnnpJJla5ahz9Ih P8ycgDhboID8IV8fEVFiXH IsWEbyh1EwrG6gGruqZIPh cIBoVLIoa6OdXRWhCbYAux 9uLCBDRDMsIENEMjBccGFy EMAvd4PoFVEdDxAAOGJyFP KWZzFdfDVkQFVfryRPu890 gi0wGGCptTUbmoEOvZZytZ 5lZDogIEluLWhvdXNlIGtu r7puWUJwb2h9zUSsGRLxlf Dlb2grVOjzfxQfNUFuqKYn hOExDPNpn34dAGzweZlznQ wdHBYda3WwxNtwt8SuLzEs SKnih2UpN47npBFfbMAftW jhMWUqilOvQRIje95op1hp OZXaRpE8sEEqoJI3tUPsxB Vbl6MggGmaPPXnd7vcFSLs ja6jyeihmEDzx2TevQ9wri ciDZpihXYzqjNyYCMwa4n7 hTEpQPFjOJKaCDtghXz8KV Rvu258ud7thyN9uHCjNDV9 YWlsYWJsZSBhcmUgZXZhbH VhdGVkXHBhciAgXHBhciBJ yH05bk2gaRN7l8KjES2vs3 HnhHI9UHShsrbkFRnkgKEf nXzgWbG4HCHrzRNnUy5noM WfKTF3NUStvIennnSRxK4f MRBoEJc4YUXmIfJeNjxsnj TTUGAcY8HiVFUvzoEytxxj SHZ7jU9om2c6MIvcVm9zCW Dmgxmqu0vjulUzjVDzi8Lr UMXnuuUst3SnTECjkrDfaR EhTMRcucSfor0oouMgBCVo QGLgH1ZgiqmmnErlykM5NC JlIGRldGVybWluZWQuIEl0 TPzdrkKqe1YsAcPukcWnvJ KnfrWhEY9tFPKmgCLcneWs JMU6IOLwLBUZKtCpEKRtx8 VzKG2bPBYumTcvWYOceP0r b7DmQNXqk65wUCCoMRKVYB EgaGFzIGRldGVybWluZWQg dGhhdCBzdWNoIGNsZWFyYW 3sJSTfceAtrEEoa5JixAFx yoUzv1ReagTdEZQaITC7Ey GVnEGuvOKvqOScjhY7j4Xu IGZvciBjbGluaWNhbCBwdX Ipy7Sryw9sLPKoq1adtNda BA2fpIEgFGVoYJvzwfSeOS MehxByjgHeb2IzG1Q3kX4v RVcbl9MnIy2bVRGgc9Aesw OpAnGWbXojGGraLv4jDTLh ggvsnHWtQ4UfzQjtkXQpRJ VuZGVyIHRoZSBDbGluaWNh qONWAQQcskN5c9R0VRzwgR XaswEkPI60OUJxPF4qpYGi eSQvn5LrRTm1XEEhS2nTNR 04OCkgYXMgcXVhbGlmaWVk YFKmKNObqkOeiu0sxKochY Lek12yuKR5fTW3KSNgoK6a S5LmHJpuQg2dHCJmrbjcjD AsrHilHe9wtHKgzX== Gross assessment was [facility] performed at ([facility], = 2777) Department of Pathology, [address] [place] [id number], Technical component was [facility] performed at ([facility], = 2778) Department of Pathology, [address] [place] [phone], Professional component [facility] was performed at ([facility], code = 2779) Department of Pathology, [address] [place] [id number], [id number] 11:21:38 Test Item Value Reference Range Interpretation Comments Case Report (test code Bone Marrow Pathology = 104) Report Case: [id number] Authorizing Provider: Alivia Solorzano Collected: 08/18/2021 03:45 PM Ordering Location: [address] Received: 08/18/2021 04:18 PM SERVICE Pathologist: Alicia Matt MD Specimens: A) - Bone Marrow, Bone marrow aspirate B) - Bone Marrow, Bone marrow aspirate clot C) - Bone Marrow, Bone marrow core biopsy ADDENDUM (test code = [id number] 3381) Gij1htg6TywPSorFBnGKcw nKQxxaFeij55jSM0bD00WI 8gSZRyMlB7ZCKjuoF5Mvo0 YMMaRYWipJPsE462c9kzl4 urqxEfxUQ6tLziOFIymkel PzD6IBxyWQCyoaaqHLt8WN wvLOUxgAV9DFZfzHArK0Ny VDMqGC4ixmq0MAQ0IDttZR SvWsD0IXWwdWXnYOKkmWfs HFcia529SRP2QeMxFAMytu MsoUpiwC4vTfLiSONVUMDs l56zYn3hCVMuOEBbCMPdBs BUbyByZXBvcnQgcmVzdWx0 vkQxLdAfvPDwqJ0qc29nWP CdEEd8g1uuHcpiXMMlqYFl FMDwTAQxaI7jfMVvMFV9AO 2gt4donj0bgEFvSBXvoEAv uI7jf21qOWNkYWy3r2qwZY Fce9nzOBVinh1dhGJmHN9q jOVzm1WgyU15fTNpPGbdNP FsbCBjZWxscyBhbmFseXpl FE2osEIcEZjvmykfuWmiER ogNDYsWFlbMjBdXHBhclxw YXIgUGxlYXNlIHNlZSBzY2 OcteJyW2V3uHAxiPIaMD9q v6sbno6uxRMnHLIqfT1khK Mny8NmJ24xnLozwSLhzuJj cSy3uo8cvVXqqB== DIAGNOSIS (test code = m7ftoPCuBBYmt8bhRHWjvJ 3220) FuZzEwMzNcZnRuYmpcdWMx IHtccnRmMVxlcGljOTYwMl elyyXgIQAzyVNpP9Wrbpmo EWbpZE8bEB3dmLxvsKXrlH ByXWPxXmSsc4mng790hSLn o7emXAUEoinqeJe6kBagP1 9cl6A6GnhdL66lnHOhVTH5 FERmUBWouTXtYOLbFIR5VK OndNJoW6xvZRBfZO1sfqam DMxxHSicYUKcbAR3RPDkyP SgU5QcQEXiKPqvPHZvruc5 DpOpMk3ifGVuzNkuMJulET OkFQYyFIwpPDGwSzOkFl5P ALHIDCXXQ3wvQBEWIJCJMF ViDCHUH9JwMTTGSHCPRAJW HHYLZpqZHFLLTZ9SX8s4UQ DmvkVjUDfJAUDSL9QECPIQ EUKsYJxeZDewYCKVGz3RZD dJVEggVFJJTElORUFHRSBI RQ3SVW2DI5sAW8lJJTKFHT BBREVRVUFURSBNQVRVUkFU PO0WIPWtcbXyJM5PLU2XBu BII7qCT2gKNB3MNPbHDCCP N6XWPX0PVNsBBWOoDIUAMS JBR9EpY6XjED6PJ3vYKB5O TlQgQlkgTFlNUEhPTUFccG LrAR7jTBAKMlPLX4ILSPvZ X70cG3ILUlWTEVUvyubxQL GbFMQONGZUFBOBJBULHR9X BIuqfRCuQK5xPr4XDP5DRP LIFlJKT6HSR9GXOy0QBSDt LL5AXGbFNUHweoFjOHWLEf 9RNh0NYRORZFOGPKExlXSp cAhizgOkYYesw0DxSIbgHG VfYU2ukMfvILSzWI3tYOFi T0ybbB3mfwy7OtKuLDVwQo N7FSFwtgU5Qye8AVMePNrl z9qjx7IzBSZbIAx8vSzyRe NeSBWow6ipqfHaXeXvHOYz MKEoOTUbnSYfV408b8ydi2 iubsCpgOZ6LARdUFB8JMlb pmHxgaC9NVtpvLTmQqO1KG tccmVkMFxncmVlbjBcYmx1 GPDiP187AKO3lUfxs4rcLH A6FTGmCOWdXyClWa1bkAHb A273LJOaENEGEZJefDv4DF IkddGofvQefMEDj203Z139 m5hiKSTkzpFybLoKmyjeh1 yoG102MJEvjWFidoGuTiFy WCKptQOdeTV5CXPoWR2irs guCYkaGZsxRLUymeY6EJVy cOFaI3MlBAWkKY7iagwlGS U7UFkrQXAkSJN0NcGrXRPd a1Mxjyx8AgZflc5fpx80LB H4q6FopIaiAID7JRH8HgBr Wl9xgDRnSALfXT3eTbUhsX HpIQGfkm99wAagUJwtOLX9 LUPslcGeh4Ajj9llTxMdbx EhD5npA3PoRQEfDARlIPSq IbNmghQjo6Ikf8JxsXWlyE b1f2zcQSPsYTToeBktc0sm FVD6CXWtuLQwK9zlxT9oSN ExAT5kyyyjo9wgZEbgMAfv HJXyaBY8pkZ8VGYgxRDjT3 XxrA6oOOGvDJmlQRBgvku9 ZcLnXh0rdGNbaFqcAGnpNl twYWdlXHBnbmNvbnRccGdu ZGVjXHBsYWluXHBsYWluXG YwXGZzMjRccWxcbGFuZzEw MzNcaGljaFxmMVxkYmNoXG XoYFkkS4sjHtSoBnCrQpx5 CUKruZTmQQAtMwn8IPVsdI MvXDONrKdowV4nCZJlsJyk xD7pzCH8TSRxblIcoEZYpD 6rEUJPeA6lVoJ7CwEqGoE4 ZXZ4FOAijZTnhB0= COMMENT (test code = y8sfvBMvUWSmeQI5RdCwMT 3359) Ajr4pqz4LatIEtnAIgYLow kCIdvtMymt50hII4zD85EG 9pXTRqKuI3ARRrijN7Bxd3 SCBmWYEmhHSaE686y1nuv3 rnhyFojJA0xLkhZYPqdlnt ObV3ANhmEERfqupmIRm0TI xoWUGnuSU4TNVksYJwI3By VVWhLT5hrke6ZJP8ZCtlEE UlFiP7ESUmfCDwIBIqgAxr NWepw824PGA8LpRoBDMibm XjuEownB4jVdNeXNAVlJFo U38afeYgoU7oHAlpXtWhgN 01LGQ4hX4rJREqqANkeYHg mFCfSyEsNXG2Ujajs7ylt0 Hdeq3flR2vd5A8lKlmHVYr G1BduNGbw5R7vWR5cH7vRA BhYmVycmFudCBUIGNlbGwg eN0zdPaaaPgnqkKnmwAzwh KsZBMgLDSflyKedE45mn1r pQLdv7I3wUqvPR61EGxiRa lcd5VaHpRKwKNzpMQvvz08 PTifQTv8tXGnG6FmnEJgYP IsIHdpdGggbWlsZCBtZWdh rQ4frARxcJpiELSoBJZ2bv OcWWxoZD09XVlqySIjTY0z PQKykHWylo5gOYCiwWGuLC 55moqpj3plY3qngZN3HPYo FPSrS81nROLyyHC0bpVrTW Jth4OzJGmmzSAqHO8oTW8a jqZtn7emG0spGE4xQEdwzN Duh8CzYV5xrDtszXDjZITu JNYcV2Fbl6KgzU44y6b6TV 1lbnQgYnkgbHltcGhvbWEg eNRblPLkroTyGfgdTV3nB8 AwyL62rLQkGIcbMOLovsCp epdeJHCwXUDtNNR2dYEfSC vsxGasZlDxnsNus5T7VVDj gS4jJSQkNRAacwC3EVSuPO ZtpuI9vE5mrQMtgJ== CPT Code(s) (test code i6erqNYmOXDarKY5FqBzTS = 3357) Mnj2wen7TmsVSguBVhEAox oRLtswBcyr33wZJ4uW52OG 6qNJHuPwB2JDVscfQ4Txv5 GILwITBhcHMcY066d9lcg1 poqwOqdYS1bRanHYYccrob KsN2TAkvOXIvzmvfQUt7TW kkSARqmYH6ESEfbITwQ6Qc DOMvJK5dtzv1DDV0VKxiXC EaXvG6MOFjwPHlMKGrfGyp TGxrm007ITL2LsBoZBUoqx YrkUzgsT6iLvPzEtG7WED3 LBwlNVEbKZw5SSu1ViD7LH hsKqrdEHelXQV1HXn5HoIn YtM5XOJ0YjX3WIW2HOs0Ix QxIHggMlxwYXJ9 CLINICAL HISTORY (test j0sdrGXjYUKlvGL8FyDrLP code = 3356) Gtd2rsl2CbgAGpkBTaMRoy uQSddsAlwc97qGC6yI50OE 9jJGSuYaM1PNHwxqW1Bfz4 KYGsIRSjkIAtO686u3zjz2 ncwcGrqUZ2hLlfLTSpzrpr OxG4BRgsCXNlcvkbOXj0OI taOPQfjFW8KKAnjQRrO8Xc VNOnVC8gjbl7XJY4CKcyOJ LbYoY8YEXnnCCcWSUzlKpn TBwhj357IVU5XfHwCUTgvj UjtUhgtZ2oClNrZQHTXISb adPwZCekH73pl7juDS7lVH ONZhEbwH6vxC4fNK6twTSo fQ== SPECIMEN SOURCE (test n0sqrXGuUBEvbCZ8KbZjXJ code = 3377) Mqu5pvb8BkxDDtsYMlGBdt vXQgqwWoet58nYM3sJ58VT 4cUVNyPfX1GHAcsmG9Brn8 KFGeDCJbqRBtX410g5cny9 dzpgHbzPS7jPhqUEBemfog HvZ5EJdnEAYugafeXMs4NF gkUCDtiEV0DRTviUZnK2Eo HZWcQU2swuj2TND0IPiuJE VoCtM9AQFceLExOAJxaFia AAiro350JGI9MvBgCXAaci OfdSvcnL8jZdJfOEOHx97l PA8mzeRgkbCtb8XikxZ9GT dxT8ksvQcvHF9zBVXbltEh BkkffLX6ObYqkzMnyYKgeM HfGCYbtOFhiR8jUM8geONj fQ== GROSS DESCRIPTION (test x7sslWHnRPCvbIZ9VnYnCD code = [id number]) Wyg3bzm6SmdFCnmQGsDTvs yAYtztDjdp39hAG2kD72MG 8vDCCdXuU1NRRwbiA3Dan8 CVOqVHDirFJvT040l4ucu7 omoqFjkGF7KXNcBXKkH1Do BS4nEXQajSLpC27glQDcRC M6UPNxUVTrnAByQCFcGVH6 ETMbyBWqM5wtIVMcQI7pai zrVVapBUmhCYQzqOK9VORu sUZdR4OrTBBiXCqpLZYoqj v1FlIsFm6mbDRfuKkcANym ZRXku2atOQYhfYPuDIC0VM cihMQnMPRqGWXjTIz4EVKn ZFzmrIJoYA2jvMyhJbvcxJ kod6MhePQzNEltWWHcLHDj SMfoUCOvT0MBIOTzLpG5RB MsSCIkVSp9RQigX7FLNCVr ATH5FJT1XeW9GcH7ZHv6DJ WVNw8dMZgxNnTuGnn0BKR8 FfL5KBgcvREcELcfHwmpQD gjHCAslZViUWftsfB8PCHw QDlwFHCyThKkWR3eZb0gML QOMCMlx7fuGBImagyidgCt JGCcL5CmxjIbWANfKNHcSM ZlcmFsIGFzcGlyYXRlIHNt URRifxsaeW4edWGwlJ1nEV 4kPUPbsZcsIBVxb0OibNWm qcQysQHgby08KEQtdQXpAX J2MW9fAKLybsmwNJSvYRVh BKN1ICpagC49sBXtUPNaGX JosUPumLkjYqdqkSelg1Hg dCBcXGlkIDUxMDAyIFxcZG YeD9ESSRQxUdD5BSFhHZAj BJo9GIxlO5DTDOCmJZS9TH G5WQP6LcW1RZl8HIPWYd9n WDyjVWD8JKWwCRP0ZiS2PI xcdCAyIFxcZmwgXFxmIEFy kWKnTEvuqqV5COKtFiYsSp 9aGc3pEPLAYQFpp0oyGKPw clxmczIwXGNmMSBSZWNlaX RcQGJzlpGxTMFvPwA7QTNz KyD8SCXaVkZsyU7cKHYvbS 06MvNVwSOqs7HpE7gsBH2i wTRal0NtaJxsfiFqXZInKH BlbnRpcmVseSBzdWJtaXR0 XCMjfF5rMoNvs1xwzTbsj4 VjdGVuZFxwYXJccGFyZFxz cC7cWiMzn3zhzSv9FErvps I9MXDelz90XBacQCIkG4Gj Q6NyNDsoXZO5TFAtZwLcAP PcLQ0GKvXeHVGuIUA5JhDa RKa2YRy5BE6TBaNeFSImRG f5GOh1RZQxRCh9PPxePP7I IIW9VFQ9WNP3YEQ0DPU2TR BcXHQgMiBcXGZsIFxcZiBB npwooBZsLD9bhVrfezAvGQ OvVGYRGcUVn35gME2zixGa js1mbOWdHEMhUaYbA5LcUW IgN4FngnBbAJtzQXLvhl8h bGluIGlzIGEgdGFuLXJlZC Ckr17lNYHvzkGwuFZka8Hg rZ6jZDEmXZLkfJAeycAaMT 5muJaif4NduRo7wHIhYKIx pZetRGz3HDtcCMMjESEhqm MsLZShkERjOyubYCHbi96m QDCwkbfwJHTrU4HbyMPkXA ypTM6uXTkGLNVfIRWXQBe9 IISmhNQkRNW4UJ6ahDffIK EwI3XqM3QarfT1CUKiao8= MICROSCOPIC DESCRIPTION c5uexXVqNUYutJZ2RrQkDW (test code = 3371) Ehv4wlg6FosCEcvLNkZEub sZPituAqfm88zSY0jC69EN 8jGHGjHdS8NSVzwwG4Ajz3 WGWrBLAwfYOjH652g3fly4 alflKveXF2qYgsPWUkeoog QuY4TIakTQDrqjbjKHr5RC ddUWOhxDR8PBSrpQJsO3Ys ZOLjUC7ubgd7PVH1ILhuHI ByQnL7QKEmdGGgYQQfuTcc MVqlh583UPM1HwTxULPxmk NxzLfkaD4mWuUzAyRCR70H ER1RTuFHXxHXM4LBHbFHOB tcmCMoFRAVKYyZGFb4XTDd hnYMm1OdhwU8KS5zFAUnSS G3QJQtPKSpymFLp0AswBHy wIZhjZ37GMVIKSOztMH0RZ mlYYXcpEVeFJ8LWjQREwWV DJCCMMVJDjYPYTmuF27YHu L2NA13lTOtbaCwBnMaTGkh ydSqe4DfoLOyQaZwEAZyvD DqADFcVFBzFecdj6IdQTnh MKJcFDSpGKGDdq5ttLZiv7 U9iSJhUQplDDUrDDHnEBAg LXpdkP8msVDteq3SIUNmwS cgcC1smAHwldYzqXRmEKC6 JMZbAUOzhcPiS6DuQ68wfy VqJQEbnyFxxBrzZ0h2LFJo LVGleuU4FJRmIYBkq4zug8 BoaWxzIGFuZCBwcmVjdXJz n2OrCSvnVNPuJAXlINDOJO NmgTrugGCkNO2mWPZgWVE0 cnNvcnMgXHBhciAxNyAgJS IBxmb9nMAnhFSdmRSsT2Pk b55xgkQzsPVrHBUeJFPxDY cgzCejW3g5JWBmVUDcnfJq OYQgBR2cgm7rqWCro0dmNP LhAESnEOYTqAXeeXMvG2Sq bHNccGFyXHBhciBNeWVsb2 sdQtXCpww3dGJwkEWcXqG4 xS10FBJ6EhTdGlJDj4GbNY gfmGWfFSYkPMM7bjzfJC3s dCBJbmNyZWFzZWRccGFyXH QqajBBdcb9sQPpsU5nEGKj rlbbWy9znBSrCHOrCPMnc9 3kqOT4QLEkSXB2orN5rI6u EsIOB3Dvh0siobRvURIzzt 1zIHdpdGggbWVnYWxvYmxh z7VuNlJkXYQ1gLYxda3zyN FyICAgICAgICAgICAgICAg ICAgICAgICAgICAgICAgIC BpMMNijyALeUAhv7RgtXIk jVU8UR1cph1gkSSuggFoM7 6kyRwcuIJmbKA9rSBilVvv js9tA6VrIADdd81aiDXkd8 YbcyD0mXQyQY3rP4Lni4Qj ADD4zLLoUeDvsJQcKGOfEY AgICAgICAgICAgICAgICAg ICAgICAgICAgICAgICAgIC AgICAgICAgICAgICAgIFxw XMZwlJJzEN6oS8YkWAG7t7 Q9zULsNwXdSYEmd2YohWGi bmQgYXBwZWFyIHVucmVtYX NiGLLyLO3aeIHrBXEehwUU dGFpbmFibGUgaXJvbiBhcH GbFJRdQEHqX2HwWIDqNFNa AFQtBTVzcaZiydUdph9yHM J6JAojSOTmqsHnay6nERIl tdF2sCOgVZAbbYOyqVUhs6 0lKSGwXLNruxGJwsZbpN4d WRBmXRLew2PlILW6qoDlpd LvqXDqhxXnKefeLK2hRVSv clxwYXIgICAgICAgICAgIC AgICAgICAgICAgICAgICAg ICAgICAgICAgICAgICAgIC AgICAgICAgICAgICAgICAg ICAgICAgICAgICAgICAgIC AgICBccGFyIEJPTkUgTUFS Gw8QBDXGP2FQGPwwqSDuCX Uvj2BhkM9xHXZhnXXqeLFl fWKsWNGmt8MqLAZ0Ar9opL ltYWwgKGZldyBzbWFsbCBz cGljdWxlcylccGFyXHBhci XJsENsqlBzlKp8nOQfUQrz NzAgJSlccGFyXHBhcmQgQ2 PufOLjVRVzN27qyU7nsLGv b95so8nbmZvajkZ0woVrj1 QbrxF3BQYgiFOqmsRwGZ6t IHRvdWNoIGltcHJpbnRzLi JuPLzyDOMeSg2ooWNzXJRo a4ArbrKqf43qWA0qOP20OD gwbGGqYX8lEAVeiSNbkc9q CPTlkxNstFXmz2RjWGTqYT GexvVyh6z7pMHne55rnZN1 MOEbZKU0gyM8iE7jGpOpBW PwsWMaRH0kQ3JzIVY5h6K5 fPNzRUEtWPWuBUMpbDP5ZO D2kWDeBQ71CMNzwByekM0f RJ5gwlulRslnLE0ljqSrq9 gdD7zfREHkYGFtrANwXMPc ICAgICAgICAgICAgICAgIC NkcKVmZEgdqNOmi6vuf9De I0igaSnuXJdfm8B2EKvzqh GiztFbnHVyDs1ydTLgNH6x JVJxF1Sqc22oSV7nKMNzQM VpdH78RPOnRCPjwP1wm7uj r9g3pQXxfPCjk9NuqMU9PQ Woy255go8uty9kiADgHRTW MyBoaWdobGlnaHRzIHNjYX K1BIJfFYEyeNOvhCMSRRd5 jZUbq4G6uGHuRqIOPOSeJK pkWLFhz4HrjUapyQj0YJ1u O6B5sIAlZlezNUEvFMIbFV AgICAgICAgICAgICAgICAg ICAgICAgICAgICBccGFyIE JvbnkgdHJhYmVjdWxhZTog IFVucmVtYXJrYWJsZVxwYX ZiuKApMPQ8RYxrCLUkUZZo nm9iTKorQGFzABYtwqZtYk MfTVZzf30mYW2gmIGkpxWe qSDvqbCgBIFyx8MxTYXfe2 8ktMjwIQGvo8Kfe0KmsNxb dm6aJQwhWGAsaZRwQBHecc DSHSMDGXgRNzOGTCPDX38B AqlbFFGehYMxGSUOS1R2EC LbQoUVLXXpCEMwYEOyoS7y usJkYoZbFwRZn3Yev4F4vS lbEKMhFNBtu7Oaz2Ppeu4j tOAcTP3lmWFoQS0fb16gv8 ppqZwlM5d9j4Qbda4fdIPb ICAgICAgICAgICAgICAgIC AgICAgICAgICAgICAgICAg GPQcldDDOcUaTxs1IUJmLO 2bwi4asRDdmyCmdP3wNWJh IENvbXByaXNlZCBwcmVkb2 7guhNpdIf8SI6kDH6nqNMr REMxhkBsfDqtA7e6CEGkUY dniOgpcI42yNFfP7MwxuCa MATyIP3fZ9PluG6aIUcmoG DroXGhxGwgdBWyES57IYie aWQgZWxlbWVudHMuICAgIC AgICAgICAgICAgICAgICAg IFxwYXIgICAgICAgICAgIC AgICAgICAgICAgICAgICAg ICAgICBccGFyIFBsYXRlbG R3xpsfTJGgK4PyMEZbHDCa ylPjvH9hUQDbHHrbcMskLP FdWL82xTEzxKbjtI5sIN5q cwxjNhswQJ7pirRfs3ypZ7 jdJHGkFUS7huWdVaqmDSVf cGFyfQ== SPECIAL STUDIES (test i5rgmHNtDRPraKW2SuKyHO code = 3376) Wuc3jov1KypUNqrRShDLvn vYQselGbqt68nYA2jL66KW 8eLGZgVjS1EADjhdC6Ucq7 OZDbLXPkrTVdK938RFWpDW QvdEvbovg1dB69NUShaN8z dGJsIDtccmVkMFxncmVlbj HbDbn8YGI3wHgmBXCoguli WuU4XItiMJXstrzyYSv9EL zoFCBfgGC1JHKnxNGwD7Di LBXrKU9vsps7TNA0RTbiRI ZxXgN9WLFhuWFeEVFfyIoh VQzub425HBH9FvWfVKLpte DvyColaK8zVbHzBkKuJmsh ZjEgVGhlIGludGVycHJldG Y3fG4pRB4jDYRixRZrK7Vh VNIkhjMhtTWxMYK0fKUihU EbOM7dEOunqHHsx2hwc8Cb Y0lxrCedhHI7IL5rFCEiZO HgUOhuj8CzeS1uBsixKRAx rXYwGQDfu6ZnNCRzOmNEqo 9uLCBDRDMsIENEMjBccGFy VDDoe4HvDLFcOiCSCSOjQS UTRcGicVFiDKCjmmCKk145 ac3uLQAgdLLbjaLEiBKurV 5lZDogIEluLWhvdXNlIGtu k2ikEXZqv7l6rRXcTPSwyx Dqf5psMGlsbvGnPEGqtAWk mTElOOKwy35wKCfjsBhplL snNDPpy4JqfYiwf6AcRwJl QJyzq0HdA65sdRHfhFBudZ ztKKLimxUrPLOhe02ky1vs ANRhPrS0wAZccME6jNZklU Csk0MxwXxlCFWhn6cpFUFm ey8slgrsvTIwx4PcuD5ksw bkJXndcKZaqkApDFSdx2w3 jIAdONSjFZJjOIwynGu7AS Nqk365yt9ydvW6gCLyUCW2 YWlsYWJsZSBhcmUgZXZhbH VhdGVkXHBhciAgXHBhciBJ oE22sw4sxXE2s3UvJW8rw2 TumXG8IUNplifsJQekpBBv eJfcNuR5QTLxrPHgEc0lzY NuTBZ4SDFxmZhbipDVcS1m WLSjGBq1DQTdDhWaHfzdon HFQBRcU3JjQZZcyhOtrium KKF1vE2nm0w5JCavQu6nMA Xylrmbl8mzvcXgbIFoj7Jv GROiteSau5ImHMBleiRfeN XgDVHadhMmen2hgzJzCKGe PTEsO9OuchkrzKacjzC1YC JlIGRldGVybWluZWQuIEl0 VEquzhGmu0EsMlWouaAicT HfasJdUX8xGJFteBPvmxEw QPS3BMOhMOWJGgKvHEBuf1 GcCW1dHOTtwPqmEDIrjS6w y7OvJOVhl92pWTJmHSWJTV EgaGFzIGRldGVybWluZWQg dGhhdCBzdWNoIGNsZWFyYW 2jESRoiyAgpVOgf9LrkAYn vhLxq5OlczQeGDNnLMR6Ze PPcCKpaNQstTTlnyI7g3Lc IGZvciBjbGluaWNhbCBwdX Zkk0Dnaw3dPTMbf1cfnIbj BZ0lxXSbQAUwHSetzbZlTL LrxkZwkfEat8EfU3R6eD0t THozz2YbIl0mHKSif8Bmjz MxNaIQlCpxLPupIt9dSHAb trlthMCeZ2QseAtfaMWlIO VuZGVyIHRoZSBDbGluaWNh aOZUYYLegzZ2b1J8ESxhvY TdlxBrCI35ILSlLS9hmUTi cRTmm4FcAEp9EGLcR0tJZC 04OCkgYXMgcXVhbGlmaWVk SSHaBVEaabHajk0ulYrsqJ Yos31ebQL5aYQ8ZPTmmQ0x M0OwZXghLb1fJCXdqqktmN TomHaiIu8omFExyS== Gross assessment was [facility] performed at ([facility], = 2777) Department of Pathology, [address] [place] [address], Technical component was [facility] performed at ([facility], = 2778) Department of Pathology, [address] [place] [address], Professional component [facility] was performed at ([facility], code = 2779) Department of Pathology, [address] [place] [address], [facility] [id number] 11:21:38Bone Marrow Pathology Report Case: [id number] Authorizing Provider: Alivia Solorzano Collected: 08/18/2021 03:45 PM Ordering Location: [address] Received: 08/18/2021 04:18 PM SERVICE Pathologist: Alicia Matt MD Specimens: A) - Bone Marrow, Bone marrow aspirate B) - Bone Marrow, Bone marrow aspirate clot C) - Bone Marrow, Bone marrow core biopsy Reason for addendum: To report results of chromosome analysis.As reported by [employer], chromosome analysis shows a normal male karyotype in all cells analyzed.Karyotype: 46,XY[20]Please see scanned/attached [employer] report for complete results.Addendum electronically signed by Alicia Matt MD on 08/28/2021 at 11:21 AMBONE MARROW ASPIRATE, CLOT, AND DECALCIFIED BIOPSY:- HYPERCELLULAR (70%) MARROW WITH TRILINEAGE HEMATOPOIESIS AND ADEQUATE MATURATION- NO MORPHOLOGIC OR IMMUNOPHENOTYPIC EVIDENCE OF INVOLVEMENT BY LYMPHOMA- DECREASED IRON STORESPERIPHERAL BLOOD:- NORMOCYTIC NORMOCHROMIC ANEMIA- THROMBOCYTOPENIA Signing Pathologist Direct Phone Line: [phone] signed by Christi Matt MD on 08/24/2021 at 2:05 PMThe corresponding flow cytometry study ([id number]) shows no monotypic B cell population, aberrant T cell population or increase in immunophenotypic myeloblasts. The marrow is hypercellular, with mild megaloblastic features in myeloid and erythroid elements, which may be secondary to methotrexate. No morphologic or immunophenotypic evidence of involvement by lymphoma is identified. Karyotype is pending, the results will be reported in a separate addendum.86855; 43040; 74304 x 2; 64958; 71843; 06591 x 2; 64110 x 2Recent diagnosis of [employer] lymphoma.Bone marrow aspirate,clot, and core biopsy; and peripheral blood.A. Bone Marrow.Received are several aspirate smears, including one slide for iron stain.B. Bone Marrow.Received is a 1.3 x 0.6 x 0.6 blood clot. The specimenis sectioned and entirely submitted in B1.C. Bone Marrow.Received in formalin is a anton-red bone coremeasuring 2.8 cm in length submitted entirely in C1 for decalcification.NURYS Flanagan ([facility])BONE MARROW ASPIRATE:QUALITY:Aspirate- AdequateTouch imprint- AdequateMARROW DIFFERENTIAL COUNT: Number ofcells counted: 3001 % Blasts 0 % Promyelocytes 14 % Myelocytes/Metamyelocytes 55 % Bands/Segmented granulocytes 4 % Eosinophils and precursors 0 % Basophils and precursors 17 % Erythroid precursors 6 %Lymphocytes 2 % Monocytes1 % Plasma cellsMyeloid: Erythroid Ratio: 4.3 ; NormalBlasts: Not IncreasedErythropoiesis: Normal and complete maturation. Occasional forms with megaloblastic features. Myelopoiesis: Normal and complete maturation. Occasional forms with megaloblastic features. Megakaryocytes: Present and appear unremarkable.Stainable iron appears decreased based on an iron stain performed on the aspirate smear.No ring sideroblasts are identified. BONE MARROW BIOPSY:Biopsy- AdequateClot- Suboptimal (few small spicules)Hypercellular ( 70 %)Cellular composition similar to aspirate smears and touch imprints. Normal proportions of myeloid and erythroid precursors present with complete maturatio n. Megakaryocytes are adequate with overall unremarkable morphology. Immunohistochemical studies are performed on sections of the clot and biopsy with appropriate controls.CD3 highlights scattered small T lymphocytes. CD20 is essentially negative. Bony trabeculae: UnremarkableStainable iron is present based on an iron stain performed on the clot section. PERIPHERAL BLOOD:RBCs: Decreased in number. Normocytic and normochromic. Mild anisopoikilocytosis. WBCs: Normal in number. Comprised predominantly of mature granulocytes, with toxic granules. Occasional left shifted myeloid elements. Platelets: Decreased in number, with essentially unremarkable morphologic features.The interpretation of this case included the use of immunohistochemistry or special stains.Block B1: Iron, CD3, CB23Gapgp C1: CD3, [id number] Slides Examined: In-house known positive controls were evaluated along with the test tissue. These control slides run alongside of the patients sample show appropriate staining. Internal positive and negative controls when available are evaluated Immunohistochemistry technical testing was performed at [facility], Pathology Laboratory where it was developed and its performance characteristics were determined. It has not been cleared or approved by the U.S. Food and Drug Administration. The FDA has determined that such clearance or approval is not necessary. The test is used for clinical purposes. It should not be regarded as investigational or for research. This laboratory is certified under the Clinical Laboratory Improvement Amendments of 1988 (CLIA-88) as qualified to perform high complexity clinical laboratory testing.[facility], Department of Pathology, [address] [place] [address], [place] [address], [facility], [address] [place] [address], [place] [address], [facility], Department of Pathology, [address] [place] [address], [place] [address], EHTOONUAJGXEAF PANEL - [id number] 10:54:38 Test Item Value Reference Range Interpretation Comments PARANEOPLASTIC PANEL - See scanned report BLOOD (test code = 28788271) See scanned reportPARANEOPLASTIC PANEL - [id number] 10:39:57 Test Item Value Reference Range Interpretation Comments PARANEOPLASTIC PANEL - See scanned report BLOOD (test code = 72023314) See scanned reportSARS-COV2/RT-PCR ([facility])2021-08-22 13:40:57 Test Item Value Reference Range Interpretation Comments SARS-COV2/RT-PCR Negative Negative The SARS-Co V-2 target (test code = nucleic acids a re not 5692118) detected in thi s specimen. Negative result s do not preclude SARS-C oV-2 infection and s hould not be used as the gael e basis for patient managem ent decisions. Nega tive results must be combine d with clinical observ ations, patient history , and epidemiological information. A false negativ e result may occur if a spec imen is improperly anabell ected, transported or handled. This SARS CoV-2 test is a rapid, real-time RT-PC R test intended for th e qualitative detection of nu cleic acid from SARS-CoV-2 in a nasopharyngeal swab specimen collected from individuals suspected of CO VID-19 by their healthcar e provider. This test has been authorized by FDA under an EUA for use by authorized laboratories. This test is only authorized for the duration of the declaration that circumstances exist justifying the authorization of emergency use of in vitro diagnostic tests for detection and/or diagnosis of COVID-19 under Section 564(b)(1) of the Federal Food, Drug and Cosmetic Act, 21 U.S.C. 360bbb-3(b)(1), unless the authorization is terminated or revoked sooner. Fact Sheet for Healthcare Providers: https://www.cepheid.co m/Documents/Xpert%20Xpress%20SARS%20CoV-2/Fact%20Sheets/701-2584%03RHFO-TPU-0%20 HEALTHCARE%20PROVIDERS%20FACT%20SHEET.pdf Fact Sheet for Healthcare Patients: https://www.Sapho/Documents/Xpert%20Xp ress%20SARS%20CoV-2/Fact%20Sheets/302-3801%72TVZC-MTO-3%20PATIENT%20FACT%20SHEET .pdfPOC-Glucose [id number] 11:12:52 Test Item Value Reference Range Interpretation Comments POC-Glucose Meter (test 173 mg/dL 70-110 H : TE STED AT [facility] code = 1538) [address] [facility], [facility] 30: [employer]/Techni sandra ID = [id number] for REYNA, LYRIC Lab Interpretation (test Abnormal code = 49006-2) [facility] HospitalP[facility]-Glucose [id number] 11:12:52 Test Item Value Reference Range Interpretation Comments POC-Glucose Meter (test 173 mg/dL 70-110 H : TE STED AT [facility] code = 1538) [address] [place] [address], [facility] 30: [employer]/Techni sandra ID = [id number] for REYNA, LYRIC Lab Interpretation (test Abnormal code = 65534-9) [facility] HospitalPOCT-GLUCOSE [id number] 11:12:52 Test Item Value Reference Range Interpretation Comments POC-GLUCOSE METER 173 mg/dL 70-110 H : TESTED A T [facility] 6720 (BEAKER) (test code = [facility], 1538) [address]: [employer]/Techni sandra ID = [id number] for OJ BREANA, LYRIC POCT-GLUCOSE [id number] 07:39:24 Test Item Value Reference Range Interpretation Comments POC-GLUCOSE METER 109 mg/dL 70-110 : TESTED A T [facility] 6720 (BEAKER) (test code = [facility], 1538) [address]: [employer]/Techni sandra ID = [id number] for OJ BREANA, LYRIC PH, [id number] 07:03:21 Test Item Value Reference Range Interpretation Comments PH UA (BEAKER) (test code = 467) 8.5 5.0-8.0 H [employer] ID - [auto]CBC W/PLT COUNT & AUTO [id number] 06:59:09 Test Item Value Reference Range Interpretation Comments WHITE BLOOD CELL COUNT (BEAKER) 3.7 K/ L 3.5-10.5 (test code = 775) RED BLOOD CELL COUNT (BEAKER) 3.33 M/ L 4.63-6.08 L (test code = 761) HEMOGLOBIN (BEAKER) (test code = 9.0 GM/DL 13.7-17.5 L 410) HEMATOCRIT (BEAKER) (test code = 27.0 % 40.1-51.0 L 411) MEAN CORPUSCULAR VOLUME (BEAKER) 81.1 fL 79.0-92.2 (test code = 753) MEAN CORPUSCULAR HEMOGLOBIN 27.0 pg 25.7-32.2 (BEAKER) (test code = 751) MEAN CORPUSCULAR HEMOGLOBIN CONC 33.3 GM/DL 32.3-36.5 (BEAKER) (test code = 752) RED CELL DISTRIBUTION WIDTH 21.1 % 11.6-14.4 H (BEAKER) (test code = 412) PLATELET COUNT (BEAKER) (test 116 K/CU MM 150-450 L code = 756) MEAN PLATELET VOLUME (BEAKER) 10.1 fL 9.4-12.4 (test code = 754) NUCLEATED RED BLOOD CELLS 0 /100 WBC 0-0 (BEAKER) (test code = 413) (CELLAVISION MANUAL DIFF)2021-08-22 06:59:09 Test Item Value Reference Range Interpretation Comments NEUTROPHILS - REL 65 % (CELLAVISION)(BEAKER) (test code = 2816) LYMPHOCYTES - REL 31 % (CELLAVISION)(BEAKER) (test code = 2817) EOSINOPHILS - REL 3 % (CELLAVISION)(BEAKER) (test code = 2819) BASOPHILS - REL 1 % (CELLAVISION)(BEAKER) (test code = 2820) NEUTROPHILS - ABS 2.41 K/ul 1.78-5.38 (CELLAVISION)(BEAKER) (test code = 2830) LYMPHOCYTES - ABS 1.15 K/ul 1.32-3.57 L (CELLAVISION)(BEAKER) (test code = 2831) EOSINOPHILS - ABS 0.11 K/uL 0.04-0.54 (CELLAVISION)(BEAKER) (test code = 2834) BASOPHILS - ABS 0.04 K/uL 0.01-0.08 (CELLAVISION)(BEAKER) (test code = 2835) TOTAL COUNTED (BEAKER) (test code 100 = 1351) MANUAL NRBC PER 100 CELLS 2 /100 WBC 0-0 H (BEAKER) (test code = 1353) WBC MORPHOLOGY (BEAKER) (test Normal code = 487) CLUMPED PLATELETS (BEAKER) (test Present code = 436) GIANT PLATELETS (BEAKER) (test Present code = 313) ANISOCYTOSIS (BEAKER) (test code 2+ moderate = 961) MICROCYTES (BEAKER) (test code = 2+ moderate 965) ARTIFACT (CELLAVISION)(BEAKER) Present (test code = 3432) PLATELET CONCENTRATION Decreased (CELLAVISION)(BEAKER) (test code = 3438) [employer] ID - snata Beaulieu comments: Slide comments:BASIC METABOLIC PANEL 2021-08-22 05:47:10 Test Item Value Reference Range Interpretation Comments SODIUM (BEAKER) 139 meq/L 136-145 (test code = 381) POTASSIUM (BEAKER) 3.4 meq/L 3.5-5.1 L (test code = 379) CHLORIDE (BEAKER) 101 meq/L 98-107 (test code = 382) CO2 (BEAKER) (test 29 meq/L 22-29 code = 355) BLOOD UREA NITROGEN 15 mg/dL 7-21 (BEAKER) (test code = 354) CREATININE (BEAKER) 0.59 mg/dL 0.57-1.25 (test code = 358) GLUCOSE RANDOM 118 mg/dL 70-105 H (BEAKER) (test code = 652) CALCIUM (BEAKER) 8.4 mg/dL 8.4-10.2 (test code = 697) EGFR (BEAKER) (test 141 mL/min/1.73 ESTIM ATED GFR IS code = 1092) sq m NOT ACCURATE CREATININE CLEARANCE IN PREDICTING GLOMERULAR FILTRATION RATE . ESTIMATED GFR I S NOT APPLICABLE FOR DIALYSIS PATIEN TS. [employer] ID - SHU FRANKLINETHOTREXATE [id number] 05:34:50 Test Item Value Reference Range Interpretation Comments METHOTREXATE LEVEL 0.08 uMol/L Test perf ormed at ([facility] (test code = [facility][note 3]-Medical 733) Center METHOTREXATE RESULT INTERPRETATION LOW DOSE: 0.50 - 1.00HIGH DOSE: 24hrs: 5.00 or Less 48hrs: 0.50 or Less 72hrs: 0.10 or LessPOCT-GLUCOSE [id number] 21:03:03 Test Item Value Reference Range Interpretation Comments POC-GLUCOSE METER 153 mg/dL 70-110 H : Notified RN/MD: ([facility] (test code = TESTED AT [facility] 6720 1538) [facility], [address]: [employer]/Techni sandra ID = [id number] for Claudette Mayer POCT-GLUCOSE [id number] 16:55:51 Test Item Value Reference Range Interpretation Comments POC-GLUCOSE METER 127 mg/dL 70-110 H : TESTED A T [facility] 6720 ([facility] (test code = [facility], 153) [address]: [employer]/Techni sandra ID = [id number] for OJ BREANA, LYRIC Flow Cytometry [id number] 12:33:27 Test Item Value Reference Range Interpretation Comments Flow Cytometry (test code See Separate Report = 2758) Case # (test code = 2759) [id number] [facility] [id number] 12:33:27 Test Item Value Reference Range Interpretation Comments Flow Cytometry (test code See Separate Report = 2758) Case # (test code = 2759) [id number] [facility] HospitalFLOW CYTOMETRY [id number] 12:33:27 Test Item Value Reference Range Interpretation Comments FLOW CYTOMETRY RESULT See Separate Report POINTER ([facility] (test code = 2758) FLOW CYTOMETRY AP CASE # [id number] ([facility] (test code = 2759) POCT-GLUCOSE [id number] 11:17:57 Test Item Value Reference Range Interpretation Comments POC-GLUCOSE METER 163 mg/dL 70-110 H : TESTED A T [facility] 6720 ([facility] (test code = [facility], 1538) [address]: [employer]/Techni sandra ID = [id number] for OJ BREANA, LYRIC Flow [id number] 10:37:26 Test Item Value Reference Range Interpretation Comments Case Report (test code = Flow Cytometry 104) Report Case: [id number] Authorizing Provider: Alivia Solorzano Collected: 08/18/2021 03:50 PM Ordering Location: [address] Received: 08/18/2021 03:59 PM SERVICE Pathologist: Alicia Mtat MD Specimen: Other Flow Interpretation (test h8locDUuCVQgpMZ7KwKx code = 3364) YHIai7yje7UxmMOdsQTo LTkhgYExqmPaqn57cSQ6 iX71EC8kJRSkHfE2SWHp tvN2Qsq5OFDeZDPddHOi S749s1jem7qikhTixXH9 dTwpVVXojfuyMjY9QMlt ALGueqdsIQd0THbmGKZd gQV4PKAbqPMrN2MpXYDg HJ9dctr5JYV3GNysREUg LgT3XUHpxZWmVNLfyYos ZYewn814ODX3FjFaULIe poIlzQkrlK5lObNzSUVO R55QCU2WIfOCXcKJO0QG UkFURSwgRkxPVyBDWVRP DQZITlj9KMVmkuBeKI5I XF5ZBe1NFOQQElBGMIFP DDhrHB2XBGgDRSdNArAP REVOVElGSUVEXHBhciAt JD2UAVSYUXCTFH3AIIKc X1WWBWNCX5ECCEJVFB6J WUdCMR4SFXWRZAFrmNTa JB8vXn5qLK5SNcARH5Gg OR2wQT0WUU3XXJeWIc7Q KVNCEaPCUDPUB0HAKMQE F0veEDR7 Flow Interpretation i5lkjEJvJXTvaBK4QoHz Comment (test code = RHAyp8pmw4SopZEohHWv 3365) IYfzbNCqutVyst00cYF1 sM53MT8zUGMvQuC3WKEa xsJ4Aah5WDPaFTPpbWAh I912s8ozg3ayatPweQA7 yRncOYJazfxeGdD8TDih UIPgnyqwDYp8JAoyBNOp rGF7ZTJsaQKwI6SjGPBm GQ2yjvn1VLP2GNakKSLw QwP2JNNujYVcZWGkaKqa JJajb860NEI8DfYzXEOo urNvvDsnkV9tOyGvYLOX sUIut9Nhz5OxGITjDIJj n3UdECXlf30cpH2bWZQy gqNgyIIstw61JTXxx5Eq uKUkRWJjyvCkGJ7pYe8g LmHmFPLyauQrb4GxIPle jMlripW7wJMwVI1wznBd w5udR9zqEKPvZDZidKyz amIltI2mzM1ulb0edMCw fQ== CPT Code(s) (test code = x6votYIcWJWprUA8CwEq 3359) FJCtf5yhc3KomYGneSBu PQtkeYArlgMopn05dVL9 yC07NP9lRDDpWiM3BWMo kvZ9Fhm3EFUgCKMbeOCy U013k4sdp4xktxNlaJN8 xNqiTBBvzvraRjL4HTzk GLRmcpnxWLf7IDsdYTRo tHU9USNfpHZjJ2BzHTQm RW9wjhe7BAG5QUedTFXn OsT6IKVabBKuAXIfmIcg PQkjf979FSC8LbRyEXAq v2A3klNdBrJsAHFctDK8 qvT6JUGsOA6jayjfm7ip RYbrZWttCIEjdkL9rsN8 KXQzmQPaV2FmgY9jUQQj ZB5sipdii1cjMIC4COhz YXJkXHBsYWluXGZzMjIg ODgxODlccGFyfQ== CLINICAL HISTORY (test o0epmXQaVLWifOD0SeWb code = 3356) SNTer3jnz4NfvLOawMYc PCfalLUzkyXkkq37dOH6 eP83OK3mRTKrWkV3KVQj hlC4Lso2LDFiTBDnhTXt D671b4kag0gunyUryBF5 iFarLIAbxbjtEnP4LWhw UGBkjwdfKRd3WStwEEDt zCQ6GVItnXXwD6GqJNFs ME9wjcl6BLR2DAunORZm HwN9ZUEcsCGtUUWrbHpl INedy732BVV3KvAvFQUu hlWbfYlbnS3fMrHxDODR COClckOzJJnrJ71ro8zu SK3rVHPCCoXciR1fdL5x OZ2gmJWxuJ== SPECIMEN SOURCE (test x8hkgUKxAESisLU4IgNf code = 3377) UXItv6bmt6WjqZZbfLKg JBgmiCMiaqVtfj86mWE5 aC93GZ3mYTNxYdP2XOLm juA4Pfh9ZNTnXGNhdZHi V841j4iix6xxsdNgkBZ9 qLghMOArkjpgNrL0HJim YAMhhxjhPUr5BGdsLDJt qOR6CRCtuLCtA8YfBTHh BT1xakb4ECN6LSoaONNd OhL9YHRrtANbQUJumYrn AIcmu768NFZ8YcUpBYVb gzFfkQsgrM7qRfMzDOZX a81jYL6xjlIameBpt4Ph zaS7GGofFDG3 CELLULAR BIOMARKER p9iohVBaFJGroHI2TqFa ANALYSIS (test code = SYDuf2kmu7ZglUVpuPRb 3380) KSkcjDTwkfRlgd33bTM5 cZ60TI2kUZJfJhP9HTZu drW8Ker4CYDsNIVjvODe R799q1wru1nqhxBzrJH4 JTJqBQJeU2GoVI3xRNQd lGKlF34ykFJdIYI2UVTw LSMehLIgTAJvFOY3KGYj nHLuN0gjCLIoSS5gimxi NOujXNvpSWEyvEL0GRZw eJUtZ1AlXZTtXAtjQENt fza5BnRoAf2meSLihGpo MFxwYXJkXHBsYWluXGZz GgGtP2UoAXVVWJwhx0Wj OcEvIU0CPISoTQeaQ0B6 Mhros5YuVfNkLA5ABA9v PWLgDKMSSXkwH0AtAUif O3FmLTntD7WeQPHEXBOw LCBDRDQsIENENDUsIENE MTQsIENEMTMsIENEMzMs JWFLLWS5TVQEOLN3KAMd M0GaxKJcMCGDJX3xIIVq FZEBCgthRGHYJWV4VGBc cn0= IMMUNOPHENOTYPIC FINDINGS w9ghiRAhNEShcGS5RiHz (test code = 3379) KIJep7hzy1JqeUBuuQHw ROyqgEYyeqVfjg17wES9 cX37ST5nNNIfPtN3TQVq itO7Dca9KZHkWENnpJOm G713k0fyb5sygbEwhGJ2 UUNbGWGqT8KjPZ7lGNHx sWBjA76eqFVvGJU1HGGw NOOtwTJjWEGmXYQ3EPQr xMApW9hzSHJaZU3oaaod SDhdMUdjKSJrqCY1VDBv eLBeU4NwBVSyMVfrUNTy sly4GlKbZj8wzTGvjLvu MFxwYXJkXHBsYWluXGZz WjJvE9NtGEKhFDIkwKYp JCKwFKXrtNu7uIwvEWAl OSVcflx+GR7xcjl+IE51 bWJlciBvZiBFdmVudHMg JOTkbQfgDCH1MKQzXBRs MFxwYXJcflxwYXIgVGhl FRQuiEuoc6xjSoNxi0M1 fQD2cB5buiLdloSovCXl qfPgUmwuIZksxGLaWR6l oMWdVQPoWRS1eoyxlVgj JKAlkOFXTUP6KpLPPRC2 FgShwUDsqQNhM16xwONz a2VmHZErSWOdFfnwU1La MGDxd8AabT63VTweR3Sy bHMuIFRoZSBtYWpvcml0 uZUhJrE9oUWmQRKfIYdt cyBleHByZXNzIENEMTMg IX3lRRNDXdOyOX53DYiq Sisoh1OaSZ0blUGpEP4u zSXrQOv9vQUzw2R5lNNf OxPNrntmiLOqC8K9AJwe uGcyfOviT0v8RAEjN85e fBEcp1OiPz4ePPEnMiT2 e9RzpHNkMDevlv7jQFDh MCangkHucV43AVHnJ0B5 OkNEOCByYXRpbyBvZiBc C5BsUWBgCbfbXhWjCUDy QCBok7YaOYjoSHqlgxRe p4ewzlAtKaM1nJXtgGAc CWCyE9BqnMNnbpSlT6Ke fmWKSBFhCN7uWSHQEB6f OI1ESUPliZezGQFrPOCm m4y7uPedkRJsm2u9uBXl IGthcHBhOmxhbWJkYSBy YXRpbyBvZiAxLjAuXHBh clx+JNQjdgDCkBCqh2fx O20kod8trSQdAkRmm4Y9 vSS2qJ4hxkegBTDydGGi bnRpZmllZCBieSBDRDQ1 NHYtCHYkvOttvBVdN4F9 qABbNTUsMRLvB2Klchif kBkelrtnD5MqszCss6K3 dGVzIGNvbXByaXNlIHRo YEWlAMfavqc5mEHcBlHq ZWxscyBhbmFseXplZCwg UI3zSKFWQALnTF1lwh3j kYRypuZpe67svkqnIOId C6CvWAJkKshhRzQyKIRb QsR4z6UwzANsXYllxt9y mQMyAT4ozTCcIBKeJUGi YSBjZWxsczogXGNmMCAw XnPxB2RfZAJiQ9XuJipe uM7lnWLfpcEgbOupo18i FPSurEfpSTLjBRHwz4Ef ROT9rHRaUVHdjAh0eHMn PhXkkSMvyZpid16lMsWd aWdodCBjaGFpbiBleHBy AIGaqN2sSimlGRBodipw YXIgVGhlIHJlbWFpbmlu SsJdgkLlrAXbMW4bvWv8 KLByevTlzpLkXW58EC0w bnZpYWJsZSBjZWxscywg ss0qUXkrfIS5q6k5fTDw f4gqQYIqeJhlUCXtapCq ZGVicmlzLlxwYXJccGFy fQ== DISCLAIMER (test code = r6atjSKtUZEjaFN4OkEh 3363) LASdu0nvr1CvkFKnnFGv ORexcRJzjiDelp64yBQ1 dK14YX8gUPSnBqR4IQPl puB6Pqv9CQPaPKChmUPo P782c5ane4amamDijKX4 uIqzUWDwfjtuVaA6UIjt ASXipguxSFy8MTnlCKHr aIW1BBQzpMJtW6XoLMPl VT3rcfo2DZI4PIcrKFGz WpW6TBWbdQItARHmsLqm CSmcl860LUI2DiDlMTVt jjUujEzvxL6dMeAwRrKA vSHiLJJ4LAX4dyE8ZCKp USXffyOvk4IzBMYqomFo vDnxdYZvcKYvNg7ysSMr B9YqP4crfsDgfTBlqJW3 aWNzIGRldGVybWluZWQg AdwxAyL3cI9dKGH0HeGN mGshQ4EoVPYauYDdiURR RA94VOXkqLBkZXElXVjv hCZ3BXUkj2OqKeDpxbXb zUNhatLcCR5dBQBraBUa siPnCAF3MJBuAYCSFwEc DPMyz8NsJB8bWZVxdEmu QLGytG1ws0KdBTHao42c IFRoZSBGREEgaGFzIGRl dGVybWluZWQgdGhhdCBz cIAdIDEhDFXqHJ8uNNHd xhYrlWPjz1PhnCDxfpXu x1WpscJlJTQoOQP3XmWD cTJozI39kCFcef20TTPn JHIxX5YqYIJsXLRgVMiy ibDqzJdrHJGdw87poGOh lbGgn6PcpwPiVCCiW2xz TUNnoBFdmGXbk7TtjA2a vWHbwhWuDAE4xGRrXDTj vD0fOCLbpMflURZkwC9d Q4NrFEczQf5mVWLsgxni ZY7crx10OB0vfkEhUQ9c cfKmMM38wjPpCwGqFKa1 NBfoK7rGQNFrYHVoIYL0 GVspLaeqGBV8kmElARPl u7MyTJydD8ncH20rrPyo pDm4pUNbpViiyOMwmSX2 LPQ9mV5cJcwqIQR7 Technical component was [facility]'s performed at (test code = [facility], 2778) Department of Pathology, [address] [place] [address], Professional component [facility]'s was performed at ([facility], code = 2779) Department of Pathology, [address] [place] [address], [facility] [id number] 10:37:26 Test Item Value Reference Range Interpretation Comments Case Report (test code = Flow Cytometry 104) Report Case: [id number] Authorizing Provider: Alivia Solorzano Collected: 08/18/2021 03:50 PM Ordering Location: [address] Received: 08/18/2021 03:59 PM SERVICE Pathologist: Alicia Matt MD Specimen: Other Flow Interpretation (test r9njrLMaOFHoxEN4QbTm code = 3364) JMSbd5xpa8LaiDFagMUp LNzdtANqtzTrva33lJC3 wD55WE2jOSNlTpN8LNNr vwE9Czd2POZkVWCbqZPo K694f5aiu7wenmVcvOP1 gFfoROZuangwIsE5OShc WJDbzvgeJSw3TNufHTZc hHF6NARmvYLtP3YsBMIw TS3cedd4GSD0ZKylGLTa IeO9CMKokHPpJSWjyYoa ABymf008MPF1IgEoTXMt kkHdnZcywV3lAxEhRTWV L33GUJ8BQmIFSuMPQ1SM UkFURSwgRkxPVyBDWVRP OFQPNum1ULMwjuZjLX0I QL7BGg4KOSCKNbWRYCUH FAtrHF7ZREyQJTaFFzLW REVOVElGSUVEXHBhciAt KU6YZUMDQVWPSI8GLBOn D7RHLCYRW2OOLWWBXH4Y DAuPQH3ZCERFDWVmjZXv LN9yMl8hYM0UCoDQV8Vh AJ7yUP4DGM8YFZsRBg9V MEUGPaILIZFFP9CMXDLZ O2jwMID6 Flow Interpretation m9cgrTOoSPXpcSU4VeOq Comment (test code = ELXwg3lnj2DcgAQahWUf 3365) CNbgcDVejqCxku86lBE0 zF48YZ2nVGSjMxF2HYHg zaP8Fon5ARMnMVPhgINc R175h8ntx4gsaiTgpNF1 lQlaANJcyyczEjO8KOuy QDDezdfhGYy5FJzcEVAs zBE3FIExnIYwA0AtDJKv VB8whin3ULL1YWrnYQOd EhG6NORlnPVkANRjhWlj EIcuu492ZJN8HpWrLTRv rnOgdTczyG6mDvUnCBKU tVYqw0Sps8YjHLNoHBQk t4JvAFEev49eyK2pOVHh fkTaoUWjqy10XZJgl6Vf cBNgVYAocpXvFW3uOc4x GiMzBEYzleTql4FtXJno yFcocxY5cNLzAF1fspRy h4baM0ezULDmHXHiuTld brEcpK9daB4eob9xhBEi fQ== CPT Code(s) (test code = i4djhBJlNIRqfTJ5EtYv 3356) HSZuy3jtl9VvuPYscYEv BLepoVSbicFuyt99sUX9 kK18MN0jXTPpDdA6VLWs zaU0Uwc9XEEqFMDasINw F998c2vqo9xkklRwtCG1 uBbeBTQnfvysQaE9JZcj QLThduehTMa6MBtbYUGv xJK1KBEgmJCjH8SbROPn WU4bmbk4VAQ5HHoaSDLm BeT3BAArqOWuWWKflOhr PWivo341ZOH6VrNsRPOq a2Q4pkRbHeCbAFLreYO4 xmG7YFUgKM9zgqbtv1py QPhwARfsXKVcnqB6cfK0 WELnkYUcN9GnaS1uLVWn HO5hxhbuf7gqJGW4KOjx YXJkXHBsYWluXGZzMjIg ODgxODlccGFyfQ== CLINICAL HISTORY (test g1hssDWmGMWwvIM1WiUc code = 3356) MNGzo6bpk7YbyVLtmWRt FNqlcNKtinQpzd97fQD3 xV91WI4kJHQrPsN2EZZn wpN1Yjn1WBZgHPBhiJTh T608r7nuo3noosQfwUX4 qZqoXOGnokyzAgK5DOcv YUVputqeZGc4PEurXGFo iEL3CTTkhHLmU4LoMNBx ZL8vgsf4EMM4OQyfNEIq XaM0CNKvtGFhJKNbmXod RXdlz693WNC5HcKjXJOk wfRseXezxY1gPbOoQLIR UYVyujRaDTaiQ20dp0ip ZV8sZCSJAqEcwT6rgC2f NO3uzTMfbN== SPECIMEN SOURCE (test s1zaxLCkTXGbvSW4LzHd code = 3377) DHVnu9oaw8WmrPQxxBNk XGijlCUftjSenf50dXI0 fJ41UC9eHAPcQgM0OASz rtF0Pfw7AKXvHWErjOTk N237s4wzu2dsqqEluFX7 aCuvTYJlnrqfPiW2DVgy YOWkztnrKKe0UEmzIQWf zPL5RHUoxQFhW8ZuYMVq LC5gfld4NTF8GQuuKPEv XwV4NCHwlXOpDQNfpZxy ZOpyd194UQY4CeJyEJKc mjKrvPupeX4tTsBtMPCK d45uIB4ncwVmicHvh8At mkX9FGdnDVF7 CELLULAR BIOMARKER s0vijPIxZPQqjBU8NjMd ANALYSIS (test code = JDNqq4gyl0JfcZWalETy 3380) BNlfxWGmeiEhgj80iCY0 sN15UJ4zFPVjRxD7YXIc puF1Tzb8ZNJiLMJsmFEu G430f3ujc3ltfjJtmKO0 YDVoOBBhW4JsKX7cHGZn vDNuQ93rgGShNEF5XCPf TIJdhPKqEIDsUHI7PAYa hCGrZ2viEKYnTN2znjbz USvgAMxqDOSwhFT7ABWv nMLjU5XsGRHcYXzfPIGp xfz9KrOrCz8ckBHgpFic MFxwYXJkXHBsYWluXGZz ShUxV5ElFKOXMCcqp0Qg IgFpQZ5TSHGuAWmcX8L9 Apggq0JcCtLaQZ8LYQ3u MQCeGJRVHObfI0NyKPqo Z6AtTJwqL3FqEYVOCORx LCBDRDQsIENENDUsIENE MTQsIENEMTMsIENEMzMs HMYTJCN8OQMXVYN5QWUo W2OxaLOiBXDFRO3xOYGh EGDWHsnlIGEILEQ8CAJu cn0= IMMUNOPHENOTYPIC FINDINGS k2ftkLZqYNCtsYJ5LcJf (test code = 3379) OLTfm2evz0JpsEZsyDBi GDuqiJTbteDmol52xVI7 jV16WT2yYBSoJfV4OVSg xuJ1Ezh0KZDoQYVvdVMp A662h4xkb0unhgTlwZO3 KSBoXYUxL8VzPG2eLNId dGLiD53ypICjAJY6UOOk LFIjzKRfWPZzHPZ6IGGh fBHvC8hdBDYoAG9mkbor HPgnJNgaRNXdfGS0OBHq tMFyK4OxZDCzKQehCZCb fgi6QcRxRe3hpPFiwNem MFxwYXJkXHBsYWluXGZz GwWlU9LxPEPaFWOizVCq FUZkKGFenZg4dOldATAh OSVcflx+FG7dnlm+IE51 bWJlciBvZiBFdmVudHMg TMQvjUpuKEF8IIRwIURh MFxwYXJcflxwYXIgVGhl ISCcrFspm4xkLmYhx8T1 mEP9cZ3pdlRzejKodIHb rxFoBejvFUvvkSHrFI4x qSIwWNOxURG4vadauAti RCSbuIVKKZA0GzZOUBK6 KaDfiYOwkRQoE17mhHKk e1ZcHVGbVURvVtbfY2Tr CKJms5FjmB08SLgiZ8Fz bHMuIFRoZSBtYWpvcml0 bLVmOfD5kWPsERCxLMtn cyBleHByZXNzIENEMTMg XV1wJSSMJiHqDP78VJtj Zkziw3IiMU8jtFYpKZ5e gOYnDLp0uHXtc4Q9eMVd QmFOjhsdzVVwG9C3OSqo wRyouGzwN9s1YWGkU42q mVQda8NcNm8qQQVcXjG3 j2JlvASsORkidz1fWIXv EYcafbZpcS02QGAbF5R6 OkNEOCByYXRpbyBvZiBc S3XwCVOdIgdaLqVaOIOs FYVmh2YzUCtxTUvvbhPi w3plykTyLfJ0hOLslKWj TAQvH5VxuRAayqLlT5Pf dlGTPZSnHR9lGZLKZO3s DN6YUTPdgHufALGqXWVi k6t9lJubpARln5v8uZBz IGthcHBhOmxhbWJkYSBy YXRpbyBvZiAxLjAuXHBh clx+MHOpkbTQoWYza3jg T21vxk9tuVIwGtDji6O8 lQV3jJ5snzyzXYTsfNTt bnRpZmllZCBieSBDRDQ1 SJMiDKRlxJbvwUEfA0T5 jMVdXDPvWILrT3Pawxhw hGpgylsuM2OtrgPbp2W9 dGVzIGNvbXByaXNlIHRo RUYgYWixgvt8xCHfXmTa ZWxscyBhbmFseXplZCwg YZ3rMYRYBIQgJN2luc5s vNRharPxo00cifdaMUMf F0TiLGRqUcrmRxYjGXEg OoY2h8TclILuUJrggx5q aXZrQQ2goBTaXHQwTPUm YSBjZWxsczogXGNmMCAw AeJuE1CzHHJgL4BpVohj rA2hrXAcoaWajJlum12j WLYbyQieNMYoEFJou0Sm NIL7zNAfMNQhvUw6nSKx CyVdmXTiiLqws38tOsHi aWdodCBjaGFpbiBleHBy ENZcaK8pXultFNSlxffk YXIgVGhlIHJlbWFpbmlu CfOlgnQmiVWuVN1sdPc2 IGBzcdWvdfPaSH11QL5c bnZpYWJsZSBjZWxscywg vv4kQLqwhDC5r0a0xJBl z3xjEPDfnEqrGVVbqwTs ZGVicmlzLlxwYXJccGFy fQ== DISCLAIMER (test code = p3jgwQEgUGKzpLR0QyYg 9742) JBLgb4pkn4JxjRJmkXJc DTmovWOzytQlbs38eYI9 nV94TR4qKCXvDsC2MIKv bnF3Fnt6HMArRQQphEHz K457v3ojx2euioZmxKH1 uZrrJKSuyoyvHlH9KUgs BKUzhqqxSGh8XRzkOBWj mXS7PCIgeODjE2NnWEKg JY9irka9KBL2IRpnQFEc FeF1WPHjxKDlAGItjYdw GLdcp973FEC1OlNoDBTi czYuoWryuH2pDgUkVwZM qIReJAV7HOW5qmM8ORZh KFJigcFre8KjWHDvrsQc rUaojUUkyNYcQh7zaUZj I2EbK0iwohTzwJAnzNO9 aWNzIGRldGVybWluZWQg FqwjHnK1gB9vYBF8RaVK fFlaI2YtPTOzmSFinEBM UJ11NURwjUAzBCNmBOtg uFI0MJKwq6QuUkFzbpSy gBJxrqXgOP1zWUQtnWFm chNxRNR3ZKSbIKBLUuEb NKBaz8VyRY9nPDDwnDjn DZKqyI6fz9ViAQYdr59r IFRoZSBGREEgaGFzIGRl dGVybWluZWQgdGhhdCBz pPZpGAPrELTmQZ5iOQQk geXxxWFad3GqqOBdztDz d8PcrwSsMBSfHWF4ZwLA kKWjbI34fPIvdo52XGLm KOVsV6HiMYTnMHSiCQau ubTioCkxQPXto62qePNc upZsx8AowjCvPOTrV7qh AMWlsSNoeFMxi9SitD2d bGHrxkVvRKM4wCIoLDBy nB1pWJAolJkkPSHsdJ2p Q0RyNLivJi6cJPWtfwbb TU6mpk47DQ4easTzMI9k xbPlMB25kpJzOtHoCRr3 VNfrJ4hOSSFsSPFkQWB5 YZaqPtqePRS1jqMtEWRw e6KeZNjvV9vxV87zwZgu rGc6xVVaxMyhcTWzyPC3 MKH7kW5lNwydGMM8 Technical component was [facility]'s performed at (test code = [facility], 2778) Department of Pathology, [address] [place] [address], Professional component [facility] [place] was performed at ([facility], code = 2779) Department of Pathology, [address] [place] [address], [facility] [id number] 10:37:26Flow Cytometry Report Case: [id number] Authorizing Provider: Alivia Solorzano Collected: 08/18/2021 03:50 PM Ordering Location: [address] Received: 08/18/2021 03:59 PM SERVICE Pathologist: Alicia Matt MD Specimen: Other BONE MARROW ASPIRATE, FLOW CYTOMETRY:- NO MONOTYPIC B CELL POPULATION IDENTIFIED- NO ABERRANT T CELL POPULATION IDENTIFIED- NO INCREASE IN IMMUNOPHENOTYPIC MYELOBLASTS Please see the corresponding bone marrow biopsy report ([id number]) for correlation with morphologic and other findings.[id number] diagnosis of MANAG[employer] STORES lymphoma.Bone marrow aspirateCD8, surface-Reinholds, CD56, surfa ce-Lambda, CD5, CD19, CD10, CD3, CD20, CD4, CD45, CD14, CD13, CD33, CD117, CD34, cKappa, cLambda, CD38, [id number] Viability: 92.9% Number of Events Acquired: [id number] The following populations are identified: Blasts: the dim CD45+ CD34+ blasts comprise 0.9% of total cells. The majority of these cells express CD13 and CD33 (myeloblasts). Lymphocytes: Bright CD45+ lymphocytes comprise 7.3% of total cells. T cells show a CD4:CD8 ratio of 2.2 and normal expression of the eid T cell antigens CD3 and CD5. B cells are polytypic with a kappa:lambda ratio of 1.0. Myeloid/monocytic populations: As identified by CD45 and light scatter characteristics, granulocytes comprise the majority of cells analyzed, and CD14+ monocytes comprise 4.6% of total cells. Plasma cells: 0.3% CD138 positive plasma cells are noted with polytypic cytoplasmic light chain expression. The remaining events analyzed represent nonviable cells, non- hematolymphoid cells, and debris.These tests were developed and their performance characteristics determined by [facility] have not been cleared or approved by the U.S. Food and Drug Administration. The FDA has determined that such clearance or approval is not necessary. It should not be regarded as investigational or for research. This laboratory is certified under the Clinical Laboratory Improvement Amendments of 1988 ("CLIA") as qualified to perform high-complexity clinical testing.[facility], Department of Pathology, [address] [place] [address], [facility], Department of Pathology, [address] [place] [address], GY, [id number] 09:08:00 Test Item Value Reference Range Interpretation Comments PH UA (BEAKER) (test code = 467) 8.0 5.0-8.0 [employer] ID - [auto]POCT-GLUCOSE [id number] 07:40:03 Test Item Value Reference Range Interpretation Comments POC-GLUCOSE METER 151 mg/dL 70-110 H : TESTED A T [facility] 6720 (BEAKER) (test code = [place] [place], 1538) [id number]: [employer]/Techni sandra ID = [id number] for LYRIC BENTON CBC W/PLT COUNT & AUTO [id number] 07:28:38 Test Item Value Reference Range Interpretation Comments WHITE BLOOD CELL COUNT (BEAKER) 3.0 K/ L 3.5-10.5 L (test code = 775) RED BLOOD CELL COUNT (BEAKER) 3.90 M/ L 4.63-6.08 L (test code = 761) HEMOGLOBIN (BEAKER) (test code = 10.2 GM/DL 13.7-17.5 L 410) HEMATOCRIT (BEAKER) (test code = 31.8 % 40.1-51.0 L 411) MEAN CORPUSCULAR VOLUME (BEAKER) 81.5 fL 79.0-92.2 (test code = 753) MEAN CORPUSCULAR HEMOGLOBIN 26.2 pg 25.7-32.2 (BEAKER) (test code = 751) MEAN CORPUSCULAR HEMOGLOBIN CONC 32.1 GM/DL 32.3-36.5 L (BEAKER) (test code = 752) RED CELL DISTRIBUTION WIDTH 21.2 % 11.6-14.4 H (BEAKER) (test code = 412) PLATELET COUNT (BEAKER) (test 149 K/CU MM 150-450 L code = 756) MEAN PLATELET VOLUME (BEAKER) 10.5 fL 9.4-12.4 (test code = 754) NUCLEATED RED BLOOD CELLS 0 /100 WBC 0-0 (BEAKER) (test code = 413) (CELLAVISION MANUAL DIFF)2021-08-21 07:28:38 Test Item Value Reference Range Interpretation Comments NEUTROPHILS - REL 99 % (CELLAVISION)(BEAKER) (test code = 2816) LYMPHOCYTES - REL 1 % (CELLAVISION)(BEAKER) (test code = 2817) NEUTROPHILS - ABS 2.97 K/ul 1.78-5.38 (CELLAVISION)(BEAKER) (test code = 2830) LYMPHOCYTES - ABS 0.03 K/ul 1.32-3.57 L (CELLAVISION)(BEAKER) (test code = 2831) TOTAL COUNTED (BEAKER) (test code 100 = 1351) PLT MORPHOLOGY (BEAKER) (test Normal code = 486) TOXIC GRANULATION (BEAKER) (test Present code = 771) ANISOCYTOSIS (BEAKER) (test code 2+ moderate = 961) MICROCYTES (BEAKER) (test code = 2+ moderate 965) ARTIFACT (CELLAVISION)(BEAKER) Present (test code = 3432) PLATELET CONCENTRATION Adequate (CELLAVISION)(BEAKER) (test code = 3438) [employer] ID - Magda Schmidt comments: Slide comments:METHOTREXATE LEVEL 2021-08-21 06:15:22 Test Item Value Reference Range Interpretation Comments METHOTREXATE LEVEL (BEAKER) (test code 0.19 = 733) METHOTREXATE RESULT INTERPRETATION LOW DOSE: 0.50 - 1.00HIGH DOSE: 24hrs: 5.00 or Less 48hrs: 0.50 or Less 72hrs: 0.10 or LessTest was performed at [facility] [id number] 05:43:58 Test Item Value Reference Range Interpretation Comments TOTAL PROTEIN 5.3 gm/dL 6.0-8.3 L (BEAKER) (test code = 770) ALBUMIN (BEAKER) 3.0 g/dL 3.5-5.0 L (test code = 1145) ALKALINE PHOSPHATASE 66 U/L 40-150 (BEAKER) (test code = 346) BILIRUBIN TOTAL 1.1 mg/dL 0.2-1.2 (BEAKER) (test code = 377) SODIUM (BEAKER) (test 136 meq/L 136-145 code = 381) POTASSIUM (BEAKER) 4.1 meq/L 3.5-5.1 (test code = 379) CHLORIDE (BEAKER) 99 meq/L 98-107 (test code = 382) CO2 (BEAKER) (test 27 meq/L 22-29 code = 355) BLOOD UREA NITROGEN 14 mg/dL 7-21 (BEAKER) (test code = 354) CREATININE (BEAKER) 0.66 mg/dL 0.57-1.25 (test code = 358) GLUCOSE RANDOM 179 mg/dL 70-105 H (BEAKER) (test code = 652) CALCIUM (BEAKER) 7.9 mg/dL 8.4-10.2 L (test code = 697) AST (SGOT) (BEAKER) 14 U/L 5-34 (test code = 353) ALT (SGPT) (BEAKER) 49 U/L 6-55 (test code = 347) EGFR (BEAKER) (test 124 ESTIMATE D GFR IS code = 1092) mL/min/1.73 sq NOT ACCURA TE m CREATININE CLEARANCE IN PREDICTING GLOMERULAR FILTRATION RATE . ESTIMATED GFR I S NOT APPLICABLE FOR DIALYSIS PATIEN TS. [employer] ID - DBURIC [id number] 05:35:20 Test Item Value Reference Range Interpretation Comments URIC ACID (BEAKER) (test code = 2.6 mg/dL 2.6-7.2 773) [employer] ID - [id number] 05:35:19 Test Item Value Reference Range Interpretation Comments MAGNESIUM (BEAKER) (test code = 2.2 mg/dL 1.6-2.6 627) [employer] ID - [id number] 05:35:19 Test Item Value Reference Range Interpretation Comments PHOSPHORUS (BEAKER) (test code = 3.6 mg/dL 2.3-4.7 604) [employer] ID - DBPOCT-GLUCOSE [id number] 21:26:42 Test Item Value Reference Range Interpretation Comments POC-GLUCOSE METER 127 mg/dL 70-110 H : TESTED A T [facility] 6720 (BEAKER) (test code = [facility] [employer] [facility], 153) [address]: [employer]/Techni sandra ID = [id number] for Min Jimenez POCT-GLUCOSE [id number] 17:05:01 Test Item Value Reference Range Interpretation Comments POC-GLUCOSE METER 106 mg/dL 70-110 : TESTED A T [facility] 6720 (BEAKER) (test code = [facility] [employer] [facility], 1538) [address]: [employer]/Techni sandra ID = [id number] for CARLOS DOVE POCT-GLUCOSE [id number] 12:09:51 Test Item Value Reference Range Interpretation Comments POC-GLUCOSE METER 109 mg/dL 70-110 : TESTED A T [facility] 6720 (BEAKER) (test code = [facility], 153) [address]: [employer]/Techni sandra ID = [id number] for CARLOS DOVE POCT-GLUCOSE [id number] 07:33:02 Test Item Value Reference Range Interpretation Comments POC-GLUCOSE METER 87 mg/dL 70-110 : TESTED A T [facility] 6720 (BEAKER) (test code = [place], 1538) [address]: [employer]/Techni sandra ID = [id number] for CARLOS HARVEY URIC [id number] 05:18:15 Test Item Value Reference Range Interpretation Comments URIC ACID (BEAKER) (test code = 2.8 mg/dL 2.6-7.2 773) [employer] ID - THOMAS [id number] 05:18:14 Test Item Value Reference Range Interpretation Comments MAGNESIUM (BEAKER) (test code = 2.2 mg/dL 1.6-2.6 627) [employer] ID - THOMAS [id number] 05:18:14 Test Item Value Reference Range Interpretation Comments PHOSPHORUS (BEAKER) (test code = 2.8 mg/dL 2.3-4.7 604) [employer] ID - THOMAS MCOMPREHENSIVE METABOLIC [id number] 05:18:13 Test Item Value Reference Range Interpretation Comments TOTAL PROTEIN 4.9 gm/dL 6.0-8.3 L (BEAKER) (test code = 770) ALBUMIN (BEAKER) 2.8 g/dL 3.5-5.0 L (test code = 1145) ALKALINE PHOSPHATASE 51 U/L 40-150 (BEAKER) (test code = 346) BILIRUBIN TOTAL 0.9 mg/dL 0.2-1.2 (BEAKER) (test code = 377) SODIUM (BEAKER) (test 139 meq/L 136-145 code = 381) POTASSIUM (BEAKER) 3.4 meq/L 3.5-5.1 L (test code = 379) CHLORIDE (BEAKER) 101 meq/L 98-107 (test code = 382) CO2 (BEAKER) (test 33 meq/L 22-29 H code = 355) BLOOD UREA NITROGEN 19 mg/dL 7-21 (BEAKER) (test code = 354) CREATININE (BEAKER) 0.60 mg/dL 0.57-1.25 (test code = 358) GLUCOSE RANDOM 104 mg/dL 70-105 (BEAKER) (test code = 652) CALCIUM (BEAKER) 8.2 mg/dL 8.4-10.2 L (test code = 697) AST (SGOT) (BEAKER) 13 U/L 5-34 (test code = 353) ALT (SGPT) (BEAKER) 54 U/L 6-55 (test code = 347) EGFR (BEAKER) (test 138 ESTIMATE D GFR IS code = 1092) mL/min/1.73 sq NOT ACCURA TE m CREATININE CLEARANCE IN PREDICTING GLOMERULAR FILTRATION RATE . ESTIMATED GFR I S NOT APPLICABLE FOR DIALYSIS PATIEN TS. [employer] ID - [place] [facility] W/PLT COUNT & AUTO [id number] 04:50:04 Test Item Value Reference Range Interpretation Comments WHITE BLOOD CELL COUNT (BEAKER) 6.1 K/ L 3.5-10.5 (test code = 775) RED BLOOD CELL COUNT (BEAKER) 3.75 M/ L 4.63-6.08 L (test code = 761) HEMOGLOBIN (BEAKER) (test code = 10.1 GM/DL 13.7-17.5 L 410) HEMATOCRIT (BEAKER) (test code = 30.3 % 40.1-51.0 L 411) MEAN CORPUSCULAR VOLUME (BEAKER) 80.8 fL 79.0-92.2 (test code = 753) MEAN CORPUSCULAR HEMOGLOBIN 26.9 pg 25.7-32.2 (BEAKER) (test code = 751) MEAN CORPUSCULAR HEMOGLOBIN CONC 33.3 GM/DL 32.3-36.5 (BEAKER) (test code = 752) RED CELL DISTRIBUTION WIDTH 20.7 % 11.6-14.4 H (BEAKER) (test code = 412) PLATELET COUNT (BEAKER) (test 123 K/CU MM 150-450 L code = 756) MEAN PLATELET VOLUME (BEAKER) 9.8 fL 9.4-12.4 (test code = 754) NUCLEATED RED BLOOD CELLS 0 /100 WBC 0-0 (BEAKER) (test code = 413) NEUTROPHILS RELATIVE PERCENT 88 % (BEAKER) (test code = 429) LYMPHOCYTES RELATIVE PERCENT 8 % (BEAKER) (test code = 430) MONOCYTES RELATIVE PERCENT 2 % (BEAKER) (test code = 431) EOSINOPHILS RELATIVE PERCENT 1 % (BEAKER) (test code = 432) BASOPHILS RELATIVE PERCENT 0 % (BEAKER) (test code = 437) NEUTROPHILS ABSOLUTE COUNT 5.43 K/ L 1.78-5.38 H (BEAKER) (test code = 670) LYMPHOCYTES ABSOLUTE COUNT 0.49 K/ L 1.32-3.57 L (BEAKER) (test code = 414) MONOCYTES ABSOLUTE COUNT (BEAKER) 0.09 K/ L 0.30-0.82 L (test code = 415) EOSINOPHILS ABSOLUTE COUNT 0.05 K/ L 0.04-0.54 (BEAKER) (test code = 416) BASOPHILS ABSOLUTE COUNT (BEAKER) 0.01 K/ L 0.01-0.08 (test code = 417) IMMATURE GRANULOCYTES-RELATIVE 1 % 0-1 PERCENT (BEAKER) (test code = 2801) METHOTREXATE [id number] 22:53:32 Test Item Value Reference Range Interpretation Comments METHOTREXATE LEVEL ([facility] (test code 1.7 = 733) METHOTREXATE RESULT INTERPRETATION LOW DOSE: 0.50 - 1.00HIGH DOSE: 24hrs: 5.00 or Less 48hrs: 0.50 or Less 72hrs: 0.10 or LessPOCT-GLUCOSE [id number] 21:22:09 Test Item Value Reference Range Interpretation Comments POC-GLUCOSE METER 145 mg/dL 70-110 H : Notified RN/MD: (ALICIA) (test code = TESTED AT [place] [address]37) [facility], [id number]: [employer]Techni sandra ID = [id number] for ESTRELLA GOLDEN POCT-GLUCOSE [id number] 16:28:48 Test Item Value Reference Range Interpretation Comments POC-GLUCOSE METER 139 mg/dL 70-110 H : TESTED A T [facility] 6720 ([facility] (test code = [facility], 153) [id number]: [employer]/Techn[employer] sandra ID = [id number] for DI [place], [place] POCT-GLUCOSE [id number] 11:57:43 Test Item Value Reference Range Interpretation Comments POC-GLUCOSE METER 165 mg/dL 70-110 H : TESTED A T [facility] 6720 ([facility] (test code = [facility], 153) [id number]: [employer]/Techn[employer] sandra ID = [id number] for DI [place], [place] POCT-GLUCOSE [id number] 07:52:59 Test Item Value Reference Range Interpretation Comments POC-GLUCOSE METER 172 mg/dL 70-110 H : TESTED A T [facility] 6720 (BEAKER) (test code = [facility] [place], 1538) [address]: [employer]/Techn[employer] sandra ID = [id number] for DI [place], [place] PH, [id number] 07:26:33 Test Item Value Reference Range Interpretation Comments PH UA (BEAKER) (test code = 467) 8.5 5.0-8.0 H [employer] ID - [auto][id number] 05:35:41 Test Item Value Reference Range Interpretation Comments PHOSPHORUS (BEAKER) (test code = 3.9 mg/dL 2.3-4.7 604) [employer] ID - [place] MURIC [id number] 05:35:41 Test Item Value Reference Range Interpretation Comments URIC ACID (BEAKER) (test code = 3.3 mg/dL 2.6-7.2 773) [employer] ID - [place] MCOMPREHENSIVE METABOLIC [id number] 05:35:40 Test Item Value Reference Range Interpretation Comments TOTAL PROTEIN 5.3 gm/dL 6.0-8.3 L (BEAKER) (test code = 770) ALBUMIN (BEAKER) 3.0 g/dL 3.5-5.0 L (test code = 1145) ALKALINE PHOSPHATASE 57 U/L 40-150 (BEAKER) (test code = 346) BILIRUBIN TOTAL 0.5 mg/dL 0.2-1.2 (BEAKER) (test code = 377) SODIUM (BEAKER) (test 140 meq/L 136-145 code = 381) POTASSIUM (BEAKER) 3.8 meq/L 3.5-5.1 (test code = 379) CHLORIDE (BEAKER) 99 meq/L 98-107 (test code = 382) CO2 (BEAKER) (test 33 meq/L 22-29 H code = 355) BLOOD UREA NITROGEN 21 mg/dL 7-21 (BEAKER) (test code = 354) CREATININE (BEAKER) 0.65 mg/dL 0.57-1.25 (test code = 358) GLUCOSE RANDOM 191 mg/dL 70-105 H (BEAKER) (test code = 652) CALCIUM (BEAKER) 8.2 mg/dL 8.4-10.2 L (test code = 697) AST (SGOT) (BEAKER) 24 U/L 5-34 (test code = 353) ALT (SGPT) (BEAKER) 80 U/L 6-55 H (test code = 347) EGFR (BEAKER) (test 126 ESTIMATE D GFR IS code = 1092) mL/min/1.73 sq NOT ACCURA TE m CREATININE CLEARANCE IN PREDICTING GLOMERULAR FILTRATION RATE . ESTIMATED GFR I S NOT APPLICABLE FOR DIALYSIS PATIEN TS. [employer] ID - [place] [id number] 05:35:40 Test Item Value Reference Range Interpretation Comments MAGNESIUM (BEAKER) (test code = 2.3 mg/dL 1.6-2.6 627) [employer] ID - [place] [facility] W/PLT COUNT & AUTO [id number] 05:22:00 Test Item Value Reference Range Interpretation Comments WHITE BLOOD CELL COUNT (BEAKER) 7.1 K/ L 3.5-10.5 (test code = 775) RED BLOOD CELL COUNT (BEAKER) 3.88 M/ L 4.63-6.08 L (test code = 761) HEMOGLOBIN (BEAKER) (test code = 10.5 GM/DL 13.7-17.5 L 410) HEMATOCRIT (BEAKER) (test code = 31.8 % 40.1-51.0 L 411) MEAN CORPUSCULAR VOLUME (BEAKER) 82.0 fL 79.0-92.2 (test code = 753) MEAN CORPUSCULAR HEMOGLOBIN 27.1 pg 25.7-32.2 (BEAKER) (test code = 751) MEAN CORPUSCULAR HEMOGLOBIN CONC 33.0 GM/DL 32.3-36.5 (BEAKER) (test code = 752) RED CELL DISTRIBUTION WIDTH 20.9 % 11.6-14.4 H (BEAKER) (test code = 412) PLATELET COUNT (BEAKER) (test 158 K/CU MM 150-450 code = 756) MEAN PLATELET VOLUME (BEAKER) 10.9 fL 9.4-12.4 (test code = 754) NUCLEATED RED BLOOD CELLS 0 /100 WBC 0-0 (BEAKER) (test code = 413) NEUTROPHILS RELATIVE PERCENT 91 % (BEAKER) (test code = 429) LYMPHOCYTES RELATIVE PERCENT 3 % (BEAKER) (test code = 430) MONOCYTES RELATIVE PERCENT 3 % (BEAKER) (test code = 431) EOSINOPHILS RELATIVE PERCENT 0 % (BEAKER) (test code = 432) BASOPHILS RELATIVE PERCENT 0 % (BEAKER) (test code = 437) NEUTROPHILS ABSOLUTE COUNT 6.47 K/ L 1.78-5.38 H (BEAKER) (test code = 670) LYMPHOCYTES ABSOLUTE COUNT 0.18 K/ L 1.32-3.57 L (BEAKER) (test code = 414) MONOCYTES ABSOLUTE COUNT (BEAKER) 0.23 K/ L 0.30-0.82 L (test code = 415) EOSINOPHILS ABSOLUTE COUNT 0.00 K/ L 0.04-0.54 L (BEAKER) (test code = 416) BASOPHILS ABSOLUTE COUNT (BEAKER) 0.01 K/ L 0.01-0.08 (test code = 417) IMMATURE GRANULOCYTES-RELATIVE 3 % 0-1 H PERCENT (BEAKER) (test code = 2801) POCT-GLUCOSE [id number] 21:27:14 Test Item Value Reference Range Interpretation Comments POC-GLUCOSE METER 231 mg/dL 70-110 H : TESTED A T [facility] 6720 (BEAKER) (test code = [facility] [employer] [facility], 1538) [address]: [employer]/Techn[employer] sandra ID = [id number] for Min Jimenez POCT-GLUCOSE [id number] 17:05:13 Test Item Value Reference Range Interpretation Comments POC-GLUCOSE METER 119 mg/dL 70-110 H : TESTED A T [facility] 6720 (BEAKER) (test code = [facility] [employer] [facility], 1538) [id number]: [employer]/Techni sandra ID = [id number] for DI [place], ISSAIRIS Biopsy Bone [id number] 16:19:12 Test Item Value Reference Range Interpretation Comments Anatomic Case# (test code = 0024) [id number] Ordering Physician (test code = Jeanine 2457) Performing Physician (test code = Trang 2451) Clot Rec'd? (test code = 2459) Yes Biopsy Rec'd? (test code = 2460) Yes Rec'd for Culture? (test code = No 2464) Rec'd for Flow? (test code = 2461) Yes Rec'd for Cytogenetics? (test code Yes = 2462) Rec'd for Molecular Genetics? (test Yes code = 2463) [facility] [id number] 16:19:12 Test Item Value Reference Range Interpretation Comments Anatomic Case# (test code = 2470) [id number] Ordering Physician (test code = Tamil 2457) Performing Physician (test code = Trang 2458) Clot Rec'd? (test code = 2459) Yes Biopsy Rec'd? (test code = 2460) Yes Rec'd for Culture? (test code = No 2464) Rec'd for Flow? (test code = 2461) Yes Rec'd for Cytogenetics? (test code Yes = 2462) Rec'd for Molecular Genetics? (test Yes code = 2463) [facility].2021-08-18 16:19:12 Test Item Value Reference Range Interpretation Comments ANATOMIC CASE# (BEAKER) (test code [id number] = 2470) ORDERED BY DOCTOR# (ALICIA) (test Tamil code = 2457) PERFORMED BY DOCTOR# (ALICIA) (test Trang code = 2458) CLOT RECEIVED? (BEAKER) (test code Yes = 2459) BIOPSY RECEIVED? (BEAKER) (test Yes code = 2460) CULTURE RECEIVED? (BEAKER) (test No code = 2464) FLOW RECEIVED? (BEAKER) (test code Yes = 2461) CYTOGENICS? (BEAKER) (test code = Yes 2462) MOLECULAR GENETICS? (BEAKER) (test Yes code = 2463) CT, BIOPSY, BONE [id number] 16:17:00 [facility] : 1965 Sex: MFINAL REPORT CT guided bone marrow biopsy History: concern for lymphoma involvement of BM Modality: CT, CT fluoroscopy Anesthesia: 1% lidocaine local Approach: Right dorsal percutaneous Consent: Informed written consent was obtained from the patient. Sedation: Moderate sedation was administered, including a total of 1.0 mg of Versed and 75 mcg of fentanyl. Continuous monitoring was performed by the operating physician and radiology nursing throughout the procedure. Procedure time spent during conscious sedation: 50 minutes. Technique: The patient was placed in the prone position in the CT scanner. A safe window to the right iliac wing was localized using CT and CT fluoroscopy.This exam was performed according to our departmental dose optimization program which includes automated exposure control, adjustment of the mA and/or kV according to patient's size and/or use of iterative reconstructive technique. After the usual sterile preparation and application of local anesthesia, using a dorsal percutaneous approach, a 10 cm 12 gauge Bonopty bone biopsy needle was advanced into the right iliac wing using CT guidance. Approximately 7 cc of marrow aspirates were obtained. Subsequently, a 2 cm core biopsy sample was obtained. The samples were collected by cytopathology for further analysis. Disposition: The patient tolerated the procedure well, without immediate complications.The patient left CT in stable condition. Impression: 1. Technically successful CT guided bone marrowbiopsy Signed: Salma Costello Verified Date/Time: 08/18/2021 16:17:26 Reading Location: [address] Reading Room POCT-GLUCOSE [id number] 11:44:43 Test Item Value Reference Range Interpretation Comments POC-GLUCOSE METER 127 mg/dL 70-110 H : TESTED A T [facility] 6720 ([employer]) (test code = [employer] [facility], 1538) [address]: [employer]/Techni sandra ID = [id number] for MARIA ELENA ALEXIS WOO POCT-GLUCOSE [id number] 07:42:52 Test Item Value Reference Range Interpretation Comments POC-GLUCOSE METER 178 mg/dL 70-110 H : TESTED A T [facility] 6720 ([employer]) (test code = [employer] [facility], 1538) [address]: [employer]/Techni sandra ID = [id number] for ALEXIS PALACIO COMPREHENSIVE METABOLIC [id number] 06:52:11 Test Item Value Reference Range Interpretation Comments TOTAL PROTEIN 4.9 gm/dL 6.0-8.3 L (BEAKER) (test code = 770) ALBUMIN (BEAKER) 2.8 g/dL 3.5-5.0 L (test code = 1145) ALKALINE PHOSPHATASE 56 U/L 40-150 (BEAKER) (test code = 346) BILIRUBIN TOTAL 0.7 mg/dL 0.2-1.2 (BEAKER) (test code = 377) SODIUM (BEAKER) (test 140 meq/L 136-145 code = 381) POTASSIUM (BEAKER) 3.7 meq/L 3.5-5.1 (test code = 379) CHLORIDE (BEAKER) 92 meq/L 98-107 L (test code = 382) CO2 (BEAKER) (test 36 meq/L 22-29 H code = 355) BLOOD UREA NITROGEN 17 mg/dL 7-21 (BEAKER) (test code = 354) CREATININE (BEAKER) 0.69 mg/dL 0.57-1.25 (test code = 358) GLUCOSE RANDOM 174 mg/dL 70-105 H (BEAKER) (test code = 652) CALCIUM (BEAKER) 7.5 mg/dL 8.4-10.2 L (test code = 697) AST (SGOT) (BEAKER) 35 U/L 5-34 H (test code = 353) ALT (SGPT) (BEAKER) 65 U/L 6-55 H (test code = 347) EGFR (BEAKER) (test 118 ESTIMATE D GFR IS code = 1092) mL/min/1.73 sq NOT ACCURA TE m CREATININE CLEARANCE IN PREDICTING GLOMERULAR FILTRATION RATE . ESTIMATED GFR I S NOT APPLICABLE FOR DIALYSIS PATIEN TS. [employer] ID - ROCKY GURIC [id number] 06:48:20 Test Item Value Reference Range Interpretation Comments URIC ACID (BEAKER) (test code = 3.0 mg/dL 2.6-7.2 773) [employer] ID - ROCKY [id number] 06:48:19 Test Item Value Reference Range Interpretation Comments MAGNESIUM (BEAKER) (test code = 2.0 mg/dL 1.6-2.6 627) [employer] ID - ROCKY [id number] 06:48:19 Test Item Value Reference Range Interpretation Comments PHOSPHORUS (BEAKER) (test code = 2.7 mg/dL 2.3-4.7 604) [employer] ID - ROCKY G(CELLAVISION MANUAL DIFF)2021-08-18 06:24:47 Test Item Value Reference Range Interpretation Comments NEUTROPHILS - REL 73 % (CELLAVISION)(BEAKER) (test code = 2816) LYMPHOCYTES - REL 12 % (CELLAVISION)(BEAKER) (test code = 2817) MONOCYTES - REL 8 % (CELLAVISION)(BEAKER) (test code = 2818) EOSINOPHILS - REL 2 % (CELLAVISION)(BEAKER) (test code = 2819) METAMYELOCYTES - REL 1 % 0-0 H (CELLAVISION)(BEAKER) (test code = 2821) BANDS - REL (CELLAVISION)(BEAKER) 4 % 0-10 (test code = 2826) NEUTROPHILS - ABS 4.60 K/ul 1.78-5.38 (CELLAVISION)(BEAKER) (test code = 2830) LYMPHOCYTES - ABS 0.76 K/ul 1.32-3.57 L (CELLAVISION)(BEAKER) (test code = 2831) MONOCYTES - ABS 0.50 K/uL 0.30-0.82 (CELLAVISION)(BEAKER) (test code = 2832) EOSINOPHILS - ABS 0.13 K/uL 0.04-0.54 (CELLAVISION)(BEAKER) (test code = 2834) METAMYELOCYTES - ABS 0.06 K/uL 0.00-0.00 H (CELLAVISION)(BEAKER) (test code = 2836) BANDS - ABS (CELLAVISION)(BEAKER) 0.25 K/uL 0.00-0.80 (test code = 2840) TOTAL COUNTED (BEAKER) (test code 100 = 1351) MANUAL NRBC PER 100 CELLS (BEAKER) 1 /100 WBC 0-0 H (test code = 1353) GIANT PLATELETS (BEAKER) (test Present code = 313) TOXIC GRANULATION (BEAKER) (test Present code = 771) POLYCHROMATOPHILLIC RBCS(BEAKER) 1+ few (test code = 478) ANISOCYTOSIS (BEAKER) (test code = 3+ many 961) MICROCYTES (BEAKER) (test code = 3+ many 965) POIKILOCYTES (BEAKER) (test code = 3+ many 966) SPHEROCYTES (BEAKER) (test code = 3+ many 768) BASOPHILIC STIPPLING (BEAKER) Present (test code = 473) ARTIFACT (CELLAVISION)(BEAKER) Present (test code = 3432) PLATELET CONCENTRATION Decreased (CELLAVISION)(BEAKER) (test code = 3438) [employer] ID - Jasmina comments: Slide comments:CBC W/PLT COUNT & AUTO [id number] 06:24:46 Test Item Value Reference Range Interpretation Comments WHITE BLOOD CELL COUNT (BEAKER) 6.3 K/ L 3.5-10.5 (test code = 775) RED BLOOD CELL COUNT (BEAKER) 3.77 M/ L 4.63-6.08 L (test code = 761) HEMOGLOBIN (BEAKER) (test code = 10.0 GM/DL 13.7-17.5 L 410) HEMATOCRIT (BEAKER) (test code = 31.3 % 40.1-51.0 L 411) MEAN CORPUSCULAR VOLUME (BEAKER) 83.0 fL 79.0-92.2 (test code = 753) MEAN CORPUSCULAR HEMOGLOBIN 26.5 pg 25.7-32.2 (BEAKER) (test code = 751) MEAN CORPUSCULAR HEMOGLOBIN CONC 31.9 GM/DL 32.3-36.5 L (BEAKER) (test code = 752) RED CELL DISTRIBUTION WIDTH 20.9 % 11.6-14.4 H (BEAKER) (test code = 412) PLATELET COUNT (BEAKER) (test 114 K/CU MM 150-450 L code = 756) MEAN PLATELET VOLUME (BEAKER) 10.3 fL 9.4-12.4 (test code = 754) NUCLEATED RED BLOOD CELLS 0 /100 WBC 0-0 (BEAKER) (test code = 413) PH, [id number] 05:40:07 Test Item Value Reference Range Interpretation Comments PH UA (BEAKER) (test code = 467) 8.0 5.0-8.0 [employer] ID - [auto]PH, [id number] 00:10:34 Test Item Value Reference Range Interpretation Comments PH UA (BEAKER) (test code = 467) 7.5 5.0-8.0 [employer] ID - [auto]POCT-GLUCOSE [id number] 21:19:07 Test Item Value Reference Range Interpretation Comments POC-GLUCOSE METER 190 mg/dL 70-110 H : Notified RN/MD: (BEAKER) (test code = TESTED AT [facility] 67[address] 1537) [place] [place], [address]: [employer]/Techni sandra ID = [id number] for ESTRELLA GOLDEN PH, [id number] 19:45:36 Test Item Value Reference Range Interpretation Comments PH UA (BEAKER) (test code = 467) 6.5 5.0-8.0 [employer] ID - [auto]COMPREHENSIVE METABOLIC [id number] 19:05:15 Test Item Value Reference Range Interpretation Comments TOTAL PROTEIN 6.0 gm/dL 6.0-8.3 Specimen sligh tly (BEAKER) (test code = hemoly zed 770) ALBUMIN (BEAKER) 3.4 g/dL 3.5-5.0 L Specimen sl ightly (test code = 1145) hemolyzed ALKALINE PHOSPHATASE 79 U/L 40-150 (BEAKER) (test code = 346) BILIRUBIN TOTAL 0.4 mg/dL 0.2-1.2 Specimen sli ghtly (BEAKER) (test code = hemoly zed 377) SODIUM (BEAKER) (test 139 meq/L 136-145 code = 381) POTASSIUM (BEAKER) 3.9 meq/L 3.5-5.1 Specimen slightly (test code = 379) hemolyzed CHLORIDE (BEAKER) 100 meq/L 98-107 (test code = 382) CO2 (BEAKER) (test 25 meq/L 22-29 code = 355) BLOOD UREA NITROGEN 26 mg/dL 7-21 H (BEAKER) (test code = 354) CREATININE (BEAKER) 0.78 mg/dL 0.57-1.25 Specimen slightly (test code = 358) hemolyzed GLUCOSE RANDOM 185 mg/dL 70-105 H (BEAKER) (test code = 652) CALCIUM (BEAKER) 8.9 mg/dL 8.4-10.2 (test code = 697) AST (SGOT) (BEAKER) 25 U/L 5-34 Specimen slightly (test code = 353) hemolyzed ALT (SGPT) (BEAKER) 52 U/L 6-55 Specimen slightly (test code = 347) hemolyzed EGFR (BEAKER) (test 102 ESTIMATE D GFR IS code = 1092) mL/min/1.73 sq NOT ACCURA TE m CREATININE CLEARANCE IN PREDICTING GLOMERULAR FILTRATION RATE . ESTIMATED GFR I S NOT APPLICABLE FOR DIALYSIS PATIEN TS. [employer] ID - [id number] 19:05:14 Test Item Value Reference Range Interpretation Comments PHOSPHORUS (BEAKER) 3.1 mg/dL 2.3-4.7 Specimen slightly (test code = 604) hemolyzed [employer] ID - BSURIC [id number] 19:05:14 Test Item Value Reference Range Interpretation Comments URIC ACID (BEAKER) 3.8 mg/dL 2.6-7.2 Specimen slightly (test code = 773) hemolyzed [employer] ID - [id number] 19:05:13 Test Item Value Reference Range Interpretation Comments MAGNESIUM (BEAKER) 2.1 mg/dL 1.6-2.6 Specimen slightly (test code = 627) hemolyzed [employer] ID - BSPOCT-GLUCOSE [id number] 16:57:07 Test Item Value Reference Range Interpretation Comments POC-GLUCOSE METER 130 mg/dL 70-110 H : TESTED A T [facility] 6720 (BEAKER) (test code = [place], 1538) [address]: [employer]Techni sandra ID = [id number] for NORA CARLOS FARFAN COMPREHENSIVE METABOLIC [id number] 13:42:46 Test Item Value Reference Range Interpretation Comments TOTAL PROTEIN 6.2 gm/dL 6.0-8.3 Specimen sligh tly (BEAKER) (test code = hemoly zed 770) ALBUMIN (BEAKER) 3.6 g/dL 3.5-5.0 Specimen sl ightly (test code = 1145) hemolyzed ALKALINE PHOSPHATASE 87 U/L 40-150 (BEAKER) (test code = 346) BILIRUBIN TOTAL 0.5 mg/dL 0.2-1.2 Specimen sli ghtly (BEAKER) (test code = hemoly zed 377) SODIUM (BEAKER) (test 138 meq/L 136-145 code = 381) POTASSIUM (BEAKER) 3.2 meq/L 3.5-5.1 L Specimen slightly (test code = 379) hemolyzed CHLORIDE (BEAKER) 101 meq/L 98-107 (test code = 382) CO2 (BEAKER) (test 23 meq/L 22-29 code = 355) BLOOD UREA NITROGEN 29 mg/dL 7-21 H (BEAKER) (test code = 354) CREATININE (BEAKER) 0.77 mg/dL 0.57-1.25 Specimen slightly (test code = 358) hemolyzed GLUCOSE RANDOM 161 mg/dL 70-105 H (BEAKER) (test code = 652) CALCIUM (BEAKER) 9.1 mg/dL 8.4-10.2 (test code = 697) AST (SGOT) (BEAKER) 17 U/L 5-34 Specimen slightly (test code = 353) hemolyzed ALT (SGPT) (BEAKER) 43 U/L 6-55 Specimen slightly (test code = 347) hemolyzed EGFR (BEAKER) (test 104 ESTIMATE D GFR IS code = 1092) mL/min/1.73 sq NOT ACCURA TE m CREATININE CLEARANCE IN PREDICTING GLOMERULAR FILTRATION RATE . ESTIMATED GFR I S NOT APPLICABLE FOR DIALYSIS PATIEN TS. [employer] ID - [id number] 13:42:45 Test Item Value Reference Range Interpretation Comments MAGNESIUM (BEAKER) 2.2 mg/dL 1.6-2.6 Specimen slightly (test code = 627) hemolyzed [employer] ID - [id number] 13:42:45 Test Item Value Reference Range Interpretation Comments PHOSPHORUS (BEAKER) 3.9 mg/dL 2.3-4.7 Specimen slightly (test code = 604) hemolyzed [employer] ID - DBURIC [id number] 13:42:45 Test Item Value Reference Range Interpretation Comments URIC ACID (BEAKER) 3.8 mg/dL 2.6-7.2 Specimen slightly (test code = 773) hemolyzed [employer] ID - DBPOCT-GLUCOSE [id number] 12:13:12 Test Item Value Reference Range Interpretation Comments POC-GLUCOSE METER 123 mg/dL 70-110 H : TESTED A T [facility] 6720 (BEAKER) (test code = [place], 1538) [address]: [employer]Techni sandra ID = [id number] for CARLOS DOVE CBC W/PLT COUNT & AUTO [id number] 10:38:14 Test Item Value Reference Range Interpretation Comments WHITE BLOOD CELL COUNT 12.1 K/ L 3.5-10.5 H (BEAKER) (test code = 775) RED BLOOD CELL COUNT 4.18 M/ L 4.63-6.08 L (BEAKER) (test code = 761) HEMOGLOBIN (BEAKER) 11.1 GM/DL 13.7-17.5 L (test code = 410) HEMATOCRIT (BEAKER) 33.8 % 40.1-51.0 L (test code = 411) MEAN CORPUSCULAR VOLUME 80.9 fL 79.0-92.2 (BEAKER) (test code = 753) MEAN CORPUSCULAR 26.6 pg 25.7-32.2 HEMOGLOBIN (BEAKER) (test code = 751) MEAN CORPUSCULAR 32.8 GM/DL 32.3-36.5 HEMOGLOBIN CONC (BEAKER) (test code = 752) RED CELL DISTRIBUTION 20.6 % 11.6-14.4 H WIDTH (BEAKER) (test code = 412) PLATELET COUNT (BEAKER) 201 K/CU MM 150-450 (test code = 756) MEAN PLATELET VOLUME 10.3 fL 9.4-12.4 (BEAKER) (test code = 754) NUCLEATED RED BLOOD This is a corrected CELLS (BEAKER) (test result. Previous code = 413) result was 0 /1 00 WBC on 2 at 0535 CDT NEUTROPHILS RELATIVE 82 % PERCENT (BEAKER) (test code = 429) LYMPHOCYTES RELATIVE 6 % PERCENT (BEAKER) (test code = 430) MONOCYTES RELATIVE 3 % PERCENT (BEAKER) (test code = 431) EOSINOPHILS RELATIVE 1 % PERCENT (BEAKER) (test code = 432) BASOPHILS RELATIVE 1 % PERCENT (BEAKER) (test code = 437) NEUTROPHILS ABSOLUTE 9.86 K/ L 1.78-5.38 H COUNT (BEAKER) (test code = 670) LYMPHOCYTES ABSOLUTE 0.75 K/ L 1.32-3.57 L COUNT (BEAKER) (test code = 414) MONOCYTES ABSOLUTE 0.30 K/ L 0.30-0.82 COUNT (BEAKER) (test code = 415) EOSINOPHILS ABSOLUTE 0.00 K/ L 0.04-0.54 L COUNT (BEAKER) (test code = 416) BASOPHILS ABSOLUTE 0.07 K/ L 0.01-0.08 COUNT (BEAKER) (test code = 417) IMMATURE 9 % 0-1 H GRANULOCYTES-RELATIVE PERCENT (BEAKER) (test code = 2801) (MANUAL DIFFERENTIAL)2021-08-17 10:38:14 Test Item Value Reference Range Interpretation Comments NEUTROPHILS - REL (DIFF) (BEAKER) 83 % (test code = 1359) LYMPHOCYTES - REL (DIFF) (BEAKER) 8 % (test code = 1360) MONOCYTES - REL (DIFF) (BEAKER) 3 % (test code = 1361) METAMYELOCYTES-REL (DIFF) (BEAKER) 1 % 0-0 H (test code = 258) MYELOCYTES-REL (DIFF) (BEAKER) 3 % 0-0 H (test code = 1594) BANDS - REL (DIFF) (BEAKER) (test 2 % 0-10 code = 1348) NEUTROPHILS - ABS (DIFF) (BEAKER) 10.04 K/ L 1.80-8.00 H (test code = 1365) LYMPHOCYTES - ABS (DIFF) (BEAKER) 0.97 K/ L 1.48-4.50 L (test code = 1366) MONOCYTES - ABS (DIFF) (BEAKER) 0.36 K/ L 0.00-1.30 (test code = 1367) METAMYELOCTYES - ABS (DIFF) 0.12 K/ L 0.00-0.00 H (BEAKER) (test code = 261) BANDS-ABS (DIFF) (BEAKER) (test 0.2 K/ L 0.0-0.8 code = 1349) MYELOCYTES-ABS (DIFF) (BEAKER) 0.36 K/ L 0.00-0.00 H (test code = 1593) TOTAL COUNTED (BEAKER) (test code 100 = 1351) BANDS + SEGMENTED NEUTROPHILS 10.29 (BEAKER) (test code = 1352) WBC MORPHOLOGY (BEAKER) (test code Normal = 487) PLT MORPHOLOGY (BEAKER) (test code Normal = 486) POLYCHROMATOPHILLIC RBCS(BEAKER) 1+ few (test code = 478) POCT-GLUCOSE [id number] 08:56:25 Test Item Value Reference Range Interpretation Comments POC-GLUCOSE METER 124 mg/dL 70-110 H : TESTED A T [facility] 6720 (BEAKER) (test code = JEFF [place]varez [place], 1538) [address]: [employer]Techni sandra ID = [id number] for JOSELYN CEDENO COMPREHENSIVE METABOLIC [id number] 05:17:49 Test Item Value Reference Range Interpretation Comments TOTAL PROTEIN 6.0 gm/dL 6.0-8.3 (BEAKER) (test code = 770) ALBUMIN (BEAKER) 3.5 g/dL 3.5-5.0 (test code = 1145) ALKALINE PHOSPHATASE 71 U/L 40-150 (BEAKER) (test code = 346) BILIRUBIN TOTAL 0.5 mg/dL 0.2-1.2 (BEAKER) (test code = 377) SODIUM (BEAKER) (test 138 meq/L 136-145 code = 381) POTASSIUM (BEAKER) 4.0 meq/L 3.5-5.1 (test code = 379) CHLORIDE (BEAKER) 101 meq/L 98-107 (test code = 382) CO2 (BEAKER) (test 23 meq/L 22-29 code = 355) BLOOD UREA NITROGEN 22 mg/dL 7-21 H (BEAKER) (test code = 354) CREATININE (BEAKER) 0.71 mg/dL 0.57-1.25 (test code = 358) GLUCOSE RANDOM 163 mg/dL 70-105 H (BEAKER) (test code = 652) CALCIUM (BEAKER) 8.8 mg/dL 8.4-10.2 (test code = 697) AST (SGOT) (BEAKER) 12 U/L 5-34 (test code = 353) ALT (SGPT) (BEAKER) 40 U/L 6-55 (test code = 347) EGFR (BEAKER) (test 114 ESTIMATE D GFR IS code = 1092) mL/min/1.73 sq NOT ACCURA TE m CREATININE CLEARANCE IN PREDICTING GLOMERULAR FILTRATION RATE . ESTIMATED GFR I S NOT APPLICABLE FOR DIALYSIS PATIEN TS. [employer] ID - [id number] 05:17:49 Test Item Value Reference Range Interpretation Comments PHOSPHORUS (BEAKER) (test code = 4.2 mg/dL 2.3-4.7 604) [employer] ID - DBURIC [id number] 05:17:49 Test Item Value Reference Range Interpretation Comments URIC ACID (BEAKER) (test code = 3.8 mg/dL 2.6-7.2 773) [employer] ID - DBPOCT-GLUCOSE [id number] 22:09:44 Test Item Value Reference Range Interpretation Comments POC-GLUCOSE METER 223 mg/dL 70-110 H : Notified RN/MD: (BEAKER) (test code = TESTED AT [facility] 6720 1538) [facility], [address]: [employer]/Techni sandra ID = [id number] for ESTRELLA GOLDEN RAD, ABDOMEN/KUB, 1 VIEW [id number] 20:54:00Reason for exam:->verfication of NG placementShould this be performed at the bedside?->Yes [facility] 1965 Sex: MFINAL REPORT EXAM/TECHNIQUE: RAD, ABDOMEN/KUB, 1 VIEW AP INDICATION: Nasogastric tube. COMPARISON: 08/12/2021 FINDINGS: Feeding tube terminates in the stomach. No dilated loops of large small bowel. No acute osseous process. Lung bases are clear. Impression: Feeding tube terminatesin the stomach. Signed: Judd Dyer [facility] Verified Date/Time: 08/16/2021 20:54:11 POCT-GLUCOSE [id number] 17:24:57 Test Item Value Reference Range Interpretation Comments POC-GLUCOSE METER 163 mg/dL 70-110 H : TESTED A T [facility] 6720 (BEAKER) (test code = [place], 1538) [address]: [employer]/Techni sandra ID = [id number] for Camilla Barksdale Tissue [id number] 14:36:22 Test Item Value Reference Range Interpretation Comments Case Report (test code Surgical Pathology = 104) Report Case: [id number] Authorizing Provider: Ike Renner MD Collected: 08/11/2021 09:34 AM Ordering Location: [facility] Received: 08/11/2021 09:38 AM SERVICES Pathologist: Hayde Harpre MD Specimens: A) - Lesion, left frontal periventricular lesion B) - Lesion, left frontal periventricular lesion DIAGNOSIS (test code = [id number] 3220) uZzEwMzNcZnRuYmpcdWMxIH tccnRmMVxlcGljOTYwMlxhb lFoELCrpNGoT1AanqmoQUaa YP6vCL8ofTsxzFWfiWThWHX uCaMec6lnp528wIAgf7ljES QJladuhVa8eBawO10gi3H7Q dtiX87tsWYjDZQ4IAVaXHQp mXJlJVTfLLW9YROcnILwQ7z bFOOyAT0qgqydXOwbUBxgHA NbxOT9ICFtvTKuZ1CqXWEiF HybWKPympu5PwXtZj4fsOSi eTcyMFxwYXJkXHBsYWluXGZ gDgXoLXneVkWDAD3xDObNX7 lPTjpccGFyIExBUkdFIEIgQ 5GQCSEKBN8WBD1AIGNay7Xk QSGajA6cmnUaXTWihixeSHX uBgnqVcUMFG3aQJkRL4vOUt bvhOJhACmBDlsKLVVuI6TYO QHOKF8CSW8AWDMzx2BeGBWu gX1xlfRnTMTqtr24OOS0OoT zr9K9MUO3AAIdNDWbk0nxWZ VmbGFuZzEwMzNcZnRuYmpcd YUsXPRuWdNum1kij893lQDn b5gcAFIgMsJ9zIPhOJYnaMI kS197QIRwUOmlr9akg1NvOZ NixBTul2L9KQSQgxonzGk3c TbjY69jw1A5LbhxJ3cwKFEd PEWaY4SoKI7kOXHaZeh7XSZ 9CZM3YGNuHRTlD0GnDV7oHC LeaVExKGz6z6uzkFjlCCOgV JV9x1yiCUsgslBeBY5yfr5g qRi3w6bilwMwZJEiVLWsrXW EBERyY2KjfKblNq8zvBa0fG cmMxueOLU3Yey5BX1ztd42o pp3yMolRCGzrgxkWdP9AHqk OTZanjzbBBe6LLirFBJhwPG 7BMOadIFhZ0IiDKUuRZ1kgv m4PNU2PNxiFMEsBzC9MIQcf MSkOPBktFcmWTimy838MJA7 YtPmVE0fN2Vqc9O5aT3tcSJ kVQMrtGXwPcQxFIKezt7njX VtFQyzm0DkCMD2seM7gGXab GJdGNMpRfX4FAmiIU4yue72 UGAnHQU8tp8xrNPsuDzgsnB pgDOyGSfnW4NxFJGom899OH GeH9IzQTAvh1E1hkRdVvRmB DAzeYF0zrA3YRPvFD7tgzzc f7urYCmqZHumXJSuexJ6ymK 6GMJnnGNaZ5TxdF7gCLAdJZ 1kdpqvb7qqNQX8RMjhJJDsF AO8UnPhLZPro7Fszdj8EbJo b0RccMRnOVxlG07jy625AZI gbxXlR0tlpAOhzazoeFKicn fdVGdfnlY7SIRsMAmuderuW XUxZSdcD2kiJnQpKCUryBrx QSbxj1MhSUWwZPSmZaEisQR cRJLhFvb6AYJanMOjJLMnLc BpC4djhyifKaCNNJXgg0tcP 8prbDZAgBZtD1VzYUlvbdCk GFiwNVusSOItLSE4OG7jAfR 0LISudv32 COMMENT (test code = s0glgFXeQNKkkKS7LqNgEMH 335) ko3hlt9BwoDXpbCDqIVpjmM XauhNiyp30uUR3bW65QA6vE RLkWgK7CFTitsH8Qmj8ACDi EDDbdFMdX796m6oxd4godiS chDY4dMjrMDIwmfkgXzB5GW gePETqoaboNDa5NVqwFNJrx DM6CDBhdSBuO3NlSJZcZC6v nki8LMY3VSxyTEPzCkD1EAE rgHJbATLitZvzIBeng317WX P5YpTdAGIgyjFdzGjonV8yM qPkHGXVt4AeaF6no7kiGpQl XIZkHViwBVLvT3N9mPMfJMg fmLkfaBfcCChvcCPnr3tdb6 YrY1qkhEhjVVzhv1G8YRhkj rlxGTKjMSQdWFrca8J7mYKk b8WuPCNCJKYeJHAbt7d9vRG tYMbjellgXNFvH4WrbQQmjA 1iaQ8rZVE7xRHiCRBwky2uG Asbyv4ccwAnIXJilyQjfxHi mCCup4Q7zRFwYQXEr4EoIZe jmYpwpbX0oEIjZSHfSPOkcC ijcUKlsFHvBNX0qBJoslKbl fSfRVLsnY5qdbLmVKTsogNs jbUmdkE3orHyfSZ0kT5fyJo paTRuKRD2YLOhCZSzoG2oub kgZGlmZnVzZSBsYXJnZSBCI GNlbGwgbHltcGhvbWEgKERM WcUGIXXjRjP2lUPyK38NBPB jxiY2xsIHUiThiD67v9d3KM 5egwFmEmdiu2aaxEOpgJDrV RzAB7evTIJWzg6vRNSkkb32 aWZpZWQgRHIuIEphbGFsaSB wRsC1nJEmuXKojVnpaU3hmu asEOpsB79yd8twCRApUZFsU qZqNdmbKO3kUMUyPiYCl9Mf VYGkpR21cuexQVTnXFB3oTE pUkpnERzlZXyaK49ks5dnBV BmETCtSeJRaZUjs45hCEGvR MNdTpQsAl5wCORabysmERLy RHIuIEJhcmJpZXJpIGhhcyB nUVMgHBdgECIoZXehZ5HaAA IqvEmnRVNuAQ5hZYPnzqV2n tKbs7z8vSJ9lFEqTWdiL88y u0zkRP3dVLnmjinnIRLbO0G bbMFhxK7rsJ4mBN2wLWOiqp 0= CPT Code(s) (test code z0sfoKJhKRVqtPN7VdIfXVW = 3357) ug4pcl2XspGWffTBrDYzknB SvzhBblk05jMA3zR98MP7yT OYhMrB4CHSruqP6Nwb7MZRe YDIcwTBwN972c4fml6czpfY lbER8pSbuREAflxcsOcA1QJ cgWVGtktokABc2SPhrRSKzr HN8TOEihHRcN7TbVNTrVY1z pjn4YUV8JOdiIEPlIuX5DQM vnILcDZSjrQxqHEpmi382MQ Y2VdZtYGDfejIkbEplyZ8aQ jErOTR5SEWxWlF2VVBeXGr9 MzQyIHggMiwgODgzNDEgeCA xMTsgODgzNjVccGFyfQ== CLINICAL HISTORY (test m5pmwOLqMBGkuFK4EtGqFYP code = 3356) ra8vpv2LrqNPqhXQtJSgemS DsqrWoew15tTL8bL30PS1gC FMpUxT4DEGeihL7Ils0IZDz TMGjnFUiI486q2ebw2cisdQ dnQE1EXPnIUU3BEzsUAOwCY GhNsc8ZHL4P4keGHQcOQotP VLkQWvouSDjNGx9AHVuaOPp wqDpGgRrUZUwiIBjpIR3KDL cAV2hwwvzQPcaZPndDWYivz G7WVPwlRLtT7TqZNNvVM1zm ljhZBZ4YFrrAMCeOXU6XiQb YGDcy5Zitun6VfTwbBSkHDh hgPP8JAugwX6sAQLzkYumbF 5cZnMyMCBCcmFpbiBsZXNpb 760HCPHzhXfQE81fiTyM7Ee QRtpuAkum48tg9DpfO1sLCT VUFI5IYJnsjDghg5qMLQbQB ImJRRmUBGSoSFkzKE3qJDzu CBoYXMgYmVlbiBzZWVuIGFu DYDkgxEhiDU0BPShWAd8UE5 zaXZlbHkgYXQgbXVsdGlwbG Hvw3A2r1trCOVyl5RnzUWzt HMuIEhlIHdhcyByZWNlbnRs uNNcOJ1ubVZkEBQ4HxInQMY fXQFpSLLOYj9aWHLHXFL0MJ UuV8h9CZ6vYUMlPCwhKY2zP PhBEQYsjIKeCSRpu2apc6r4 aQCqcQNet2SafBYkuC1aGPO gD1DiTBYyOSpzTI3QZPXtjF 52ljYgY3SdDQNZEElFSDEvF 08yzQGvHi4exh2sjEy8iKDk khDlIC3wMG3fTH5nkwZfhI0 piFnmADzwTiEkJ8XhNJGxYQ wgaGVtaXNwaGVyZSwgcmlna DOvRwAdoF7rfNDzDTNmboXs gX2coEJthU8iCCHxb3ApIPw xRWdnl5EjnVwsYXSlF8hwzd ljBH4pBGSapz4= SPECIMEN SOURCE (test a2rysPDyBHWgjBJ5OjTfZTD code = 3377) cc5lws7EccIEdqLQvHXbttY TcbhJlwm38kAP4pI86GW6sP TOjQsG6ZTOutbN9Lqf5HXZb OAAjzSUnJ203t6vio3csakX alJE5nDfhLTWxkzfgCmK9PZ tdDVLpnnmbOLd9PDoaBIBor ED9DHPedEVrW8HiWVVxYQ8w ruc1BNR9SLqqBFRgSlW7LZL zoLEyUKUgkJtzGYkjw237DJ J0RmBgFTHrdqGxbGhylE8rX gEzMKPGfoObvjFxSHXvm51d cGFyfQ== GROSS DESCRIPTION x3zxiENuTASanMPFNSSoO2y (test code = onpWnMBCqgNViB3LivvxcBL [id number]) pxQB1yCU8ngBbkfFAyxVXlO D0SHUNmXgQlNGHgpVLxxoBu IoShGEAhnFNbdKO3SZGxCA1 aqyjtYEmwGIrxJEDnbfC7QZ DczBTnW9GyAMOfGC9mudmaN XO6GHsntP8xisWBBhfvDm4z dHRibHtcZjFcZmNoYXJzZXQ aZEFtgKstJSMkLLc3bD2JMv qfQOQ1TTDOQfzdAZOlCI3Zh 1skVGYnnKUkTRU0LVlabDTs HFAeOOVgEEo2APBlDQfwwUS rKP4trEexCaydsImjh3KxuY BcXGlkIDUxMDAyIFxcZGIgI C6ENlWqOYU5VKFuMGNeXOs3 DAm3OP7PXaBnZDUfMPs9BbC pOtHkHFb7VTbdKC3QSCR6VZ t1ZkD8OPQ0YMB7YGUkDHOvF iBcXGYgQXJpYWwgXFxmbCBc TM8qlOkgaBTwflPMDpKYORR bx08uYBSicoFDFpsfbJqrHg VzdERvYzEgDQpcbHRycGFyX GxpbjBccmluMCANClxsdHJj aFxmczIwIFRoZSBzcGVjaW1 lbiBpcyByZWNlaXZlZCBmcm BzoEMkj4XkSoEdmoQaUDBzM 7Nee73vKFlxU88sy4zfTNBb YWJlbGVkIHdpdGggdGhlIHB ypQsvnwVqK4T2maSjGS8ySW GjXADrJ2RyQDXjO59xGYEwk J2oZICsGI9bBAMzTJZlu75k GPXrKNEic78ubXL0ktEkVkK mJZbpBBdwa3swhRFme11mvL Y7eGZlcQYwT93gUEMcOJNem EMwSHWxkVPmucswFT37PAVc GMcfXZhpxek1vL1cPAYesM1 6U2hzzDPevFTzzqJrWBFjZY UjKCS1vURbs0WnO4poAX5ty FUoKH53xKGrnFuof6LogCb6 dGVkLlxwYXIgDQpccGFyIA0 CW2SpjTggcdZbx4VtNwcxEV RoZLlBW2LbLFaeGfJeasYwW F28MIQzltNafUehFBCBUbvg HJ6pvJgxihEdIcHpYMTlgsI cbGluZSBBMzogUmVtYWluZG AcRP9sIAGaDYNcuOCtOFuwi DosfS1bGSKhA75lq2GTp1Af WXWhVUetd5wstLifb7OrcKO jHUwvSECpdCIsNOmbcD6kIw Sqn0fkuQq7LLhzyzF0BRFdx t6KXigeNhwfoWspl7XgtGBi XGlkIDUxMDAyIFxcZGIgIE9 MRyLkVCU7GBAkVOXnGZh2ML u6XE2HCgOvHZZgEOy2NjQ0P MVlWDl2RAkfTV7WWCW7FPpe QJVyNDP3XNI6HRFlLLOsFdZ cXGYgQXJpYWwgXFxmbCBcXG 5luZlnerP1OWBhVXojTHTyC Niwk8gjoe7twVIlDR9SJBCl zMFMXZK3BP6iCERQYahdiUE vCFKahSnwCJepbR8hFG4YTX b3yuIlOYZdCtWlYeKpYEc6W DHsTsKek3qyGKaxCpPuIICw dGhlIHBhdGllbnQncyBuYW1 rWEIIBf7oqoRgLpOoDIIcGU YegYFucKCpmi8ypPVvBDTfx fi4OR99wdggbFvewrPePMGj l19mBHnnHBCbPB52YRoaBA7 nGOxqXC7qTWJpENSiK4JyV6 Y9ZYYkBmV7MH3awBpkttBqq 4J7ZNYyf9W4FZ5qDKJfYGCy jGAnvH4xxnRdkrHamUp5OAX sQBEequIvx2HcjKk1pFCnKI gmJLRpiV7idJ7nNyLuALDvf iANClxwYXIgDQpaYXJhIFVk ZGluLCBNSFMNClxwbGFpblx lcGljTmVzdERvYzBccGxhaW 77LKYukVMpBFJ4AB1cWJShe aihKYQnRCKzUNQ2HOisgW97 iPXeTWDoGCAgfSSzhF5DACT xRLZ5IPgesJ13hUAcSR2IZQ TaKFC2XHFrtCIkUOG8SJ8gr Q0KfQ== INTRAOPERATIVE r0xaeYNvKLLqkTI6IvVjSDL CONSULTATION (test qs3hrc3MbhMStgFGtUWhwzH code = [id number]) ZvyhRpqf43zCG3hA09KN0cW JBuNhU0YGUwanL5Axo6LFMd OJVupVHuB594s9sku3xsmqX kdYO9rHnbGITervsdCsY3JB tcLQKfepmsWNn9MGjhWFKjp SF4UIFlwXZdI7ZlBPZpZO6c tro2CZB4WZvpUPTyYcY3QSS rnPRbHUAoqWllRZuxj438QJ Q2SxEcMKXomeF8SSdaEPTvF 6PvW9RcJXtaQNF7KERsMQSv SDXyQJEuILDbSBioxaW6o7f bMJJwtBIkHEM4SDffpBSbHW EwMDIgXFxkYiBPVlIgIiAxO TLkJTT0SiX2JLs8HLXXTqDb DdUnBkt5KhO1ZlQvMZb5MEq 7NStNGnB9Eix9KYK8IMggDY XmOxGzUMa7YAJgXMvlvKXlS KCsNXHqJNptYHavG98mcElx nI8jKnXgFCGOKvCRPRJsm24 uXHBhclxmczIwIEJSQUlOLC NRIQYENMSMU07XHWmoJRBKC SBPMpLLMDPDCADJRNnJJ1bD TiwgQklPUFNZIChGUyBBMS9 SPOb8EGicpxBpLApTN2lZNq KUMKGIY8BNODNLIYIFTEBEY lNFIFBFUklWQVNDVUxBUiBJ GqMHPU9VOVNXR94fwQulLMe zmW4xDBNesB2epNAeDBG8PP CaXrEUwLJ0rkFEvx5hJdOqP XswRQ7xSYOyDCCvPoSvEafb FFQqLNn1ON71JEBkvWBtAZX 0PM1dcVapZLPlV9IeM8Wvex H8ZTXquk3= MICROSCOPIC o2hzmKQfXXQwtJR7HbVhLPV DESCRIPTION (test code fs6qlb9LwhULveGCqUTrykS = 3371) PugpLylp15sHC7tJ79US0mO AKvXoX1FIRhvlU3Tje6DHWy JMPbdKYeP360y1nul9thfqE qcIJ3xIhoIRZhftlnWjT5DU myYEAulkbwVPv6TQqjIQPti FB8SVKybPZtM0ArDUNoXV7h qjm2ZFA7PNvyCHJpBlZ5LVL kqRWjRDJecBcqEEkhl121AI B0VgPcZOGgtbYaoFmthL5zK fGmMFMMBsTQIAP8sM6fxaXo oA42WXHcNBmlTYwhiDcjTQB kaWZmdXNlIGluZmlsdHJhdG Nws0TwfZRuS3ZlvApatZrgf ARcU5IjpRNfBWJQzQUrozSl uMiqf1YjCtKktmEfwIJcJOB jGBfkRLDej0m2pMDdTQDrem RBIUPdWQESD2uwBMKQZEx1Z ENMDT2aBAcavUYfABYqLOKG D5g9XDsioSFoYNEkPUOuSOJ qZBudsCy9CGNiv4VnJPIKME IgSVNILCBDRDMsIENEMTAsI DA3U1kwsfGNVJ3yVLTuwiA7 vRTcVLOdTKZwTrD8nNJoaoB gvUjtg0UoTuAiIHsrfmZtkI LtNIRwmF2ltVKtxkDdYm4sS LKaRJyTNmEqM3awLafbnOsm wRxkC3i8ghM9uFNvdVPrG3Y gcHJvbGlmZXJhdGluZyBjZW axcg9oBCDPMnSiuKXtNUmfM 3rjyJviuFXvn84beKyqIZPy KAigdaX4xNTplU8oqWGqhZI hx7M4gXOnPRgaFkwejVNaiW ClAtHfvCPpPBKqSEOnI9Csw 81tSLVva5eyQiKxvV9sl4u6 zHZmLUZnVgF8l7TwzO5ixNr 4uyM6TYEjMcZuEBGpLUWwnC 3psQ0rWSXlYTyuxo6zKQLmD OXcEN2lsSLrvRzyJAxzXqrm rWUbvGEplIGoyQ6nzQBbybU cFx5yRWQLIwSkSE6mSQ7gY3 H8vCRqSBGsakIKMZLnLVbkJ XJ9 SPECIAL STUDIES (test f6rusZGwITSrqEP7CpLiHTK code = 3376) fu9wwv5YxwXGokKUuBQfzbX WqrrJnwp75jYU0oQ44HG0qM CBdFnY0FKIuozN9Mcv8OFGi BCTliVPlU150DHZyAKMbpIr bdqg3xB15TRAbwU3yyKAqZL onjbNkTSvczvBgzeXbOxu2K RU7eHzjIJFgfwjjIpJ0IIoc ZZFhveayWZh7HMzcINAriYS 9OVPcgHOzA3BgJDGbAQ2qgv e6LHO2ROsoBDLmPhH1PRPic YNhMUVkcPgtGLprb450CGU0 VhQxIZImyvCxwEomaL0sYgO cZnMyMlxjZjEgVGhlIGludG BpyAPtiBR7uY7fOD8aCRBxx XZhZ0VeAVIfslYhcHGlWPT9 aONyhTNvHH5rQTzqpCFvc4f tt5OvF9orjNaxrYG1WL9tBE PhZPVnBGpef7AakS6jKsiwI XJccGFyIEEyOiBDRDMsIFBB QZGkQKsqYXW7LQTIHHVvCKL ghjISMjseC3yzFcmfMKG0F4 xpbiBEMSwgQkNMMiwgQkNMN tokKRQDLSedXp3HVFOdQNRM RVIgSVNILCBDRDEwLCBDRDU hPMSBDbjlP2EyKGgkULSfFl P1JWCTYcRqQYAZJ2txKLYwz EMhHSWusgQhw0ytO7utWPMw SMZ3SO8eikZwXzXuIU3csP3 9h6Okp15ft63xeG1saSLwub QoF98wzOPbtWIqh3UyQALww iTbsAL5VRFrOHzhcizhh8a2 cRY7xPLwuGLapOO8xJRtdSU vITALgJAbXZBpb594og7mFC HtbYFqrvKjnZ7sHHesmlqcf RJcNK9xRCGjSXKiMSMmSH83 oiMlAS6noHPkx6gutpRtiNZ mh1YmlVC1VBDuqGZlswveSg 9kPO26UVDzZJibaR8brFXrc mSpYX5zCZ8bH3C7zVCvMMJy pxWle0sdYNtlED8aLVJdcGt pUzdoFOTqSPQifiJumSZ1WR RccGFyICBccGFyIEltbXVub 6vlx2ReF1bbdTuipTH4PWHg Y8kyeOKfeIV3VRC1iR4oFLv pxxNqKMUvc5DnVCSsXSIaWg W7vA9oCPG4GmYYlEovNDP2I hN9ZPgyBLJkLH7xMNcdAYud X6HxaHRpXMWAOJRqw3dbH3o bPFPvj7XndT9sqNF2cMRaFO DnfVT9GDTpKEA7SWxmuHHlQ SWdAAJefZGksVVlVn5xaXUa T2IdY8dqnrWzfOMrgWP3jXN aXCvbtiIeXQZ3QHNqyF1zBD 8bHGHbuHInML7lzEYwHSVaH QDcTQFhKNDje4BxTOEgpf95 DQQlJhmvrPzvPJUtOb6fSz4 tOXOpmmUrHGA6BwAQCM9gej lkiPZbkGgetv3mFZwzTDTUB IRnLXZuZCE9UVBrqV8dMIJ5 sKM3UVB6Z6suJ1glDRPmioK fIG3eWZOsjXLlhlBfELbcGS 9xvVPyDPOhy0PhniapQBUrL GN0UZD2KAtiPRUdKRVgYn8z EIGvzH3aJ3VvZPJ3rnUmv7U eEoSGzRHjpF22gKBjjk28VH VmJZQaV8NkKJJdYHMaYYyot iDskHfgIQGaq80woANrxhBb g5MwauZdPYAuB7nfKYDztQB juQMnf4AfnO5ohAAoqlIcEI Y6eAToTDYwcC7cMSKfhWgrI YFmwS3nO8PgTKnjXg9mZZMv ovxjBQ9ako55FY6hqmLuOZ0 aknVlJM43zfRsScPfLKy4QA jGKDzZZYl0VCKgnsMaiIHyv TPnQLKvaL3oeESyAx5eqHGg yRaeGWLcaHQrPZunrKagS8b hmrriOYtwoYYdp6NtdQ9iqF Y8XXP3dU3pIvqmPLK6 Gross assessment was [facility] performed at ([facility], code = 2777) Department of Pathology, [address] [place] [id number], Technical component [facility] was performed at ([facility], code = 2778) Department of Pathology, [address] [place] [phone], Professional component [facility] was performed at ([facility], code = 2779) Department of Pathology, [address] [place] [id number], [facility] [id number] 14:36:22 Test Item Value Reference Range Interpretation Comments Case Report (test code Surgical Pathology = 104) Report Case: [id number] Authorizing Provider: Ike Renner MD Collected: 08/11/2021 09:34 AM Ordering Location: [facility] Received: 08/11/2021 09:38 AM SERVICES Pathologist: Hayde Harper MD Specimens: A) - Lesion, left frontal periventricular lesion B) - Lesion, left frontal periventricular lesion DIAGNOSIS (test code = [id number] 3220) uZzEwMzNcZnRuYmpcdWMxIH tccnRmMVxlcGljOTYwMlxhb mNsKALwlNUkY5SmnexrWEga LA5tOZ2owGlycQZegUHmVYO fMiRpt3xuo374iISxc2upJH GEcxesvJn5nUkoP56js1Y8F azfP86hrXZeCGT0JXAuTHOf sZQqCIGqTGO0SIZxgPJdQ7r mFIIfWR0aeilvUDvvVXfzMR CapJP5QQYbhEBoR3KoJWOqW WppUEPfhoz9SnQiPu8bsHNa eTcyMFxwYXJkXHBsYWluXGZ mZjYeUHxwFrFHMZ2dMRxZN6 lPTjpccGFyIExBUkdFIEIgQ 7EBDSWSNJ8EGM5VNQAyr5Dm CZMyjS9dceBwEUEmqzebYAD bXqjoOnCUKP7jWEaUX4xBCp bhdXYuTNiMSosFXZTwI4AFX NVTUL5WAU3SJILbz5KwPSFv tM4kgbSyCTLioo12DOJ9DtU bb1A8HOT7UXYwJUAji4otGP VmbGFuZzEwMzNcZnRuYmpcd BIiCYXsBfHok5kno083bVRn o9ajXRAbJiA4mDJlLWSvrNH mU924RGXhFJymf2lsj2MrAQ OozTJan8O7WTMHsbborMo8b OjhH04qt2S9DqtxW2sqGECa KWIwI2PwMQ6cURJwDek8QNJ 6VRD2FCHzCMLeL4HlUO8yMD DpfDJbJEv2s1nvzWfjQTGkC FP3h3ijAJpnsyHsLT2uio3e rFy4w9mfzlFkQDOxGXPfiLV JTAWsG7LpwMqsHc0psPu5eH vdOmkbIOV2Nkw7ET5pat95j xn8oFxoWTGoojlxYnN5VBpz TJUgpktoRGh1SOzeMXNarZF 2FDKvsRPgQ0DpHDQoWZ3ntj r4FXK1ONqoVHZsNoS9JEHgj NBoIRRjxDhrBGhow076CQH4 ZkItBO3aG5Qkh3K2gV5opRP vYNKhiUYxWfNaHBGewr4teN ZsCCsbp0AoGZI3zqT4eSTfz GQyKMZbLgD9LBazMC5jod75 TQTzFKR9vc5maKIfjLfysaJ auSBjHFqhD4FnMQDii708KN FzJ5HuEQRqw3V9viGrEoZyR YKosFN2rjC4GVLtWT8ukmfk k7dqIIfeEAclSRUzzyQ1igB 2LMDbkTNbC6HuiV0sRDNfNM 6gobckf1vvDNB4PTliJUBuO VV0WmPbOZVpy4Qlwyx0IzEu w0NeuBJxXKoxT17jt386QIY kygHfH7wgbELjszxwrFGkuo kxTGgyuaG2TKNfIQmpgdduK VUhQIfgE9heKsYnLZDeiXgo QDzhz8ByKQXsZYGfCjTolIP wARDfIlr6SWAdiWJcCNCqAg DpZ6rqzfsiNdOQVLOhc6ctC 9smxPSMzCHcI9ReKFrbrvZu XAihCOzoXEHwHZL6PU3vZfI 6POVtzv97 COMMENT (test code = q5gpjJTaOLXxgRG9WzMjFPG 3359) aj1jlm1OiqFCjvHXaDKiprG TlddKsli26lUM0lI07EN6gM SKkGaQ3KRMggeW3Fsb2ESKe SEUpwSZhO834j9byi5kdgzB jmPA2jCoyRLMpkjybYiB1EE nzMJJqhojyPJf0SKgmHVIrn JV9AQXyoJKjO7SpWLHpTE7l ztg7DYV5UKorXJZwRrT7UOE ucCCtLHOzmJzhYOzdc942JM A1ZuHqDPDgeqQfbXwqaA5uM zEeKHJTt3JobS1tp8yfVqAg GSRyIZjrICUnZ3M8iGDlNXd gvPrdbQflZVcdpASzv7jwy6 KdV3zruMafJOxeu7I4GNyic okpQRPpAYEfKPval8I7nSYa k9MpVBYQVXYlOWXgq8a4aOQ zDPcmopalTNZxG2UmrARjhH 9ipT7kFST9cEOuPESpgk6iS Embem9vmrKpISXnvdHxjpWs kKHlo7U0oYRjUATZm2ZiCTf ewKvvhfM7qBViWNKyCSHjpE zehZLbnBMvKKL2eZXuwlLnj sJeKMIppG5wbiVoORTlrnBj peUjnrV5gcWxdOP5tJ8pmIf vfJMcTXD2BTVlGNZorC3ipw kgZGlmZnVzZSBsYXJnZSBCI GNlbGwgbHltcGhvbWEgKERM XzIRLDYrHeS4rVNgU37RQLQ nbaI2hqZQOaHskW15n9j5GN 7jxkQtXgafy2alzUXbqHTwV DqUH3hdTCPKgb3iQKAoqz46 aWZpZWQgRHIuIEphbGFsaSB pWkH7zJSwuHPbsVsfsD4chl fwDHgfW18ic1quQPVzUMVvC bPkRnpjYE1yVWDdRyVMx5No HJDmcA37adxpRNZpIAW2eDO sGjguUPksHNjaO82do5uzOC CrBPTcGhDBzPBgb21mTSQyJ PUjYqSgQx8hZWNapvdwKALw RHIuIEJhcmJpZXJpIGhhcyB dJHWbEIprMQDxXXwsV6KzIA BouAhzOSOiVU3yJLCvoeH3b bYot4l7sOF6hDPaBJvsU42f t3pmQV4yPAbtzhwbAULmG5O rsJWyiC7mlZ9nRI5zKDFxtj 0= CPT Code(s) (test code n2ldiHKiKCZxaYS4BuQwSTA = 3357) zm7fws5QxmKQflOUmHTmmlG EwteMtil31iDF0qD46KR3hS BIeMyH9EOOwedJ0Rgi5VXJd ZMUysCFoQ382i5iab4bibiF fuTE9zSkzJECsndatRyD3QX ngBTWrlteiGLz8XSpbVEPsl KX0JHBjvTSeV9OzBPZoGF1h mda3IPM3DGysUIAjPpC8YDE ccOVpMIRhrZtyULomu287VA T3HzBfZVOrtfYsvWetsE9bI xWpQPX2EGOvDeR3FDBuWDx3 MzQyIHggMiwgODgzNDEgeCA xMTsgODgzNjVccGFyfQ== CLINICAL HISTORY (test m2yqqSMhFOJdkCD7CeCpARN code = 3356) pg2aao3DleVYuwIWuFUjsxS HmhhSzus32fFT5vO06JV8uZ SSnRdJ3FBYfpaG3Qam7YTWm UVWhdZLsA346x7mmx8phflT hkOZ3PPKtAVF3XLgpGWUlMC CrOax3JXW4Z5goNWCdKGmnD XLyONzloOViLDk0STKrcWQt qjJzSbSqRMXzuFFejIB8WCT eQF6ajhfbHUwqPWtfWRRbzl Q1NFTnkWGtL9UlGFXjIX1sz qmjPQG1NAplSTIsEVN2AmFn AICal9Glmlo3BfSycVItPUj igJN9DPqycU0ePFIcwAobhM 5cZnMyMCBCcmFpbiBsZXNpb 901LGMXuxVwKL14rcSdS9Vw RAzhiXtka05lk9ElhN4mEGU NIBR3WPAsnqIcdz3wHEQoYV GsIJIvYKEJaDVtgSB1mSOrh CBoYXMgYmVlbiBzZWVuIGFu QWIsdzTrwJA3FWEgETx3WP3 zaXZlbHkgYXQgbXVsdGlwbG Eih9O0t0mmXVAxw5LmyZLtr HMuIEhlIHdhcyByZWNlbnRs bIUxHL2jpMWpUBZ1BwGgVIV pRAOoIKINSq1bFDOVMIK0AY QbW6p1BC2yNECsEEevZE6tA FuTIGMyiUJcRRPed3ego6s4 qNUgoXRve9ShtPBjqE9bOAO eA3HpWLBaWPdxKY0CNDHlfN 97nxEcJ5ItPVWPVOkHWBDtT 99apMBfGu1zud8zsWv7xUXi xuJlLL4dWD9hFP8pmnAhvB7 esMmtAEjyKvDaP8WrSCPxYL wgaGVtaXNwaGVyZSwgcmlna ZTpPrKmxK7ybIUxJPVvarHs mX9qwMFmsH1hCHNye4YcRDa xMIzaj9YphMbzTGPvC4uchc hhEN7qPIFlgm5= SPECIMEN SOURCE (test i0wkpKDeRYQqhTO2BoBdVLC code = 3377) pc2kzr1UjwANvcSFzIZifdE HxhjEllm00cKI3tK64PO3bH UWtGlS1SRUkyzN3Zus0LHCp NEGzaTMsI541x8tnz9luqqA nmCF8cZqoFAUywkpnTdQ1WM sbOUPvbpzhPLf0JTngJPItp RN9IQPlrMPlD5VpMRBwCH3a qwx0XAY6AYsyWDLeHwE5XBH hpNQeQBJwpWekWLtpv349KB Y4MqRdUWKznhJhsPvnkH3yF qScJLOWxyRpfrXyJXOeb98r cGFyfQ== GROSS DESCRIPTION q7ikoXLsNQGfuMPWUEJgN6n (test code = rcjGfVPZooGSvK8MnynjkKG [id number]) zcEQ0hWC6vyWofgDFlgPZlB N7MFGSrGiCdEIRdkXYhjpBx JnFdXVTuyIWfcLX5FXFyZS3 mylqfXJptBCbbBKBsgmU6FZ FkaANuU1NfWJCzPL2jqftzT PS8ROryqW6iloONOnspNa7i dHRibHtcZjFcZmNoYXJzZXQ mSYKdbXkaPZIeYKk6vC1XFp biZHG4AFKUQlzvUBZtXX6Hq 0zdJDIjtCIeCFM0LOcxnZLe KSMsAHHrSWu4DHYlMFgnbXZ lRO2kgKlwFjplqThrc0BsmW BcXGlkIDUxMDAyIFxcZGIgI W1XDkVcKIY6IRAjTRJsGBe4 ECv3ZR5IGdPdDKPqRXv6IfB qJrKbRHy9MCjvTE9DFFW7KC t9FlJ7FSP4NOD5NHYiRTCjJ iBcXGYgQXJpYWwgXFxmbCBc NU3pjQxzrDJienZROhOONZE ol85kKMDrkkJBHjinjPljTg VzdERvYzEgDQpcbHRycGFyX GxpbjBccmluMCANClxsdHJj aFxmczIwIFRoZSBzcGVjaW1 lbiBpcyByZWNlaXZlZCBmcm PoyTVar2UvVbDqgfBtGRRoU 2Wlz83lJXivW62ip5mwKKEc YWJlbGVkIHdpdGggdGhlIHB qkWolwhWdQ9F1egRkJY9cVO YsKRYhC1VxAEVrW28bLBBnm A8lPQPqWD7nVEUpZAVyl99c PTYuSLFft06eyLH5kkShRgC eTJdqULftf4ldiYJcx63mlM H0uDTmzUPqM69wQTSdVAQwy LVdWMTixJNloxtdUM71UKRr OTqkLXypxlu5aZ6kUVYreW7 2E4nqmDVyrBLucgWkORXuJP ZvXFR4kCTpj8VrY6jqZR8ph MHqVW08cLUujJotn8RgmDz6 dGVkLlxwYXIgDQpccGFyIA0 AB9EurDqdyiQwh3RcDkbpMY OrMEtRT3AiCDfyGlNuvqFcW Y91LLZbogJikZegUCBTTwlo TI4zcYzefmAeUrRyKSGncbI cbGluZSBBMzogUmVtYWluZG BkPV8bFMFzZJBwbESlOEyry YqxsB9qOUMdH76mz5YUi4Dz VXVfOQrvj1dahCdnv3WodVJ jKQbxVROefVWuVZobwA1uTv Xnm7ozuUy4UWxhyhG2QYKcf f0LMqkfNqjktSzaz1HqtYXi XGlkIDUxMDAyIFxcZGIgIE9 ZBrZpBHD2WBGxARSsQZs5BW v4LZ6HLmMtDQXeXBt4YaS5S KWwQBp3JEcrEX9BIIV7LXzn RTOqQVV4TVV0PYLcHQXbDtZ cXGYgQXJpYWwgXFxmbCBcXG 1crMxxwiB1OHSiJWrzKYVgF Abhp2ssix9ywNIaNE3WVQIm eMNROQW3NG0mSBURAfrusXI tDHYsqNhlIXoxqC7sWL5IUK h4ggYhXPSvCpKzAqKaIFn6S LRaMyJkm1oeARzcWzAoPSOk dGhlIHBhdGllbnQncyBuYW1 aSJVLOy0lyeNpEjVdFSWtDE QlhOChnNXobl5qmMAiUMCgg sc7KG57orsgkAhojoXgZBIk k05nONkbYWDkHU89IPyzEU6 sTRdyKA1oSQAaMBDtR2GcT5 Y8CYDnRvF8IG2fePdswhPrc 2E7DHWwb2Y0SW4xDWHyQZCm lFHqdR5oknDocwDojUl4OCJ eEBDkagJbp0UgdPb3gLEnEX qhRABslQ7npJ9yQvZuQKRlu iANClxwYXIgDQpaYXJhIFVk ZGluLCBNSFMNClxwbGFpblx lcGljTmVzdERvYzBccGxhaW 26BNHxnAWdTQA0UG5nQYKdp natYATnIWViVPP0FJpkpD52 iYUgCBDaKKBcrGLucV2UYCF jSIS7BPqvdB90nECpLJ9CFK BfCIH8TTOqvRQjKCJ3RF6no Q0KfQ== INTRAOPERATIVE r6ilxAFhHCVtnSO8AqQwMBN CONSULTATION (test yw5edq7QapSGjkEGiZLhdwS code = [id number]) DrfkMmbg87gOZ9uR26JT2gZ ELvTeA1HFXcylP8Vbc5DVYm LABviCXpU364r9bbx8fbiuD qhGR3tDmkSMUjawmiEiH9XQ tkCPSxzhyoSHm9QPewRZYpj IW9XFAreYCyR9MvQRZbDX8x spk6JVG0DUhqCTQrBcW6IDR xjBCtLGGycTkvGIxla301IB S5BuNzIHEcrwA0YWxkAHSnB 2HrL9HzDPatPLU6EULsXZHo TUBuJGAfKTEdDXempoM2l0e gEXXvnZVzYJD8TDtqcCGtKK EwMDIgXFxkYiBPVlIgIiAxO UWvDGW9LyT7BQo2IKCVZoIb MySlXgo9GuK1HnYpFVg2UJn 2UXjQBcH5Kgo2MNF3BAuwUQ DtZnMfZOz3DEXtGLoieLKnO RNvQBPoSIokVIfvM40qwFbj fB9pJuSrKLGAMiQTAPAbq69 uXHBhclxmczIwIEJSQUlOLC QNVSHTXUUKB80IVCfzYFDPK DKJRtZEHOISOSBHPPoOP3cO TiwgQklPUFNZIChGUyBBMS9 NIUj1EWxrnfOmSDuGW4hMNh MGBLZNE5YTDKEACEPLYXBHY lNFIFBFUklWQVNDVUxBUiBJ EmGFGI6RPKPYF76naHrlZPy arL8fQSOgnD4gcIGhDOX0GZ InCxAOeZW6awVVmr2sWyCeF XoeDA2nPHLgKQGvDeFvPasd AJVfKHf9SE06FDVsgFNuVSF 7MG0otPlhKZJfQ6AyX0Mzfg J6AHFqjg4= MICROSCOPIC p5preJDsWQJpaYY2JkGoSCE DESCRIPTION (test code nd0ugm4FnhSEphBNyWYunuL = 3371) MtamLcna68fVB0pW16KG3pH SQxIbH7TYNzrpP6Zmo1EJTz ERVnjANqD221o0fyr7ucniN whQP5bYvrHIDqwozpHxE4LG mjKXKhpvorOAx7YEriMXIsn WF3OYLxpTUoH4IvNGGeVH2j ngp6VJR3SGlcRHNwZkH2KRW knIIlDHVajPpcSJpyg185OT Z1SmFcEDJgbnBgfLjwuT0aI oOfVRBYTjPCLWV6pA6xdrVb fC75KKQuOKkbXKvpmIkiGKP kaWZmdXNlIGluZmlsdHJhdG Qnl3FtiXJnW4TwzKgejJjxa XUxK3YfrUFrRZTXnZPqdmBb rJvmq2CbQhTofyKhkNBmVKS mIMqeULJwa2b9hDIeVSHqvs RBVCEtJUZMS4xwSMCGZNr6N NKPQX9iFPeorMPfXHVlOVDR Z4s5UWtxpXSlXAAmPUTnMZM zWBgalDm5UWFeq9SfQLPWRL IgSVNILCBDRDMsIENEMTAsI HU7W2xedxEZDA7yRIUugiV9 kRTsAGNfBMUwOlO4aWUepnU qdOgfn2NdXqMzZTvchqXnmO EfXFYhbI9ksZYlodSwUn8aV GItJIfDDyGjX2maSjkpiTao fIdqY5b0yqX3zKEbaCNjZ6Q gcHJvbGlmZXJhdGluZyBjZW mpcm0uUKFAMbCwnOCdCVsrF 1mcoRqomLFda04lzPzlBHCi GBpeorK1jALxoN4okUZoeCO ci4M4aBUzTInwBtglrYSxzQ OxNqUntNVaRBOxNYOtV0Zpd 82yAFCre2stBvQakZ8eb6f2 fRXdLOUxNrQ9s9ZmqC0uoEf 6laO8UDBhLnLzSOJeGZPdcF 5yiW1kTDImYCpehr2hXBOeY TRbTA5xuIAvmWyrWNjzDnxs nJYneAMujSZqtQ1qxDXekmF xIc7uVJTRFaJsDX2qXW8yW5 K7vTNgEXDumqZRDMYwTPvpB XJ9 SPECIAL STUDIES (test a9lcfQPwODFtkWC5MvRoOUJ code = 3376) ku5gwo6IjmSVviUTxGGpooG LlchIfyi52pHM8uJ31LH8lQ YOhGbA5DETrifJ4Sbj4HHGa MYIhaKTdM078LVPaNNQsbJf aahg2cU54AEBzvS9gzRXmGH ckmwFzTXciznEdthCiBwp1O KG7vEgvJGTdmolbSdE1XHtq MIOocypqAZg5CBvjPADnuWE 1VMYblKYaI6EaXCPoUJ3dky e1SWH8QWmiSQGqFxB5NTIlr ISpDLWsuVfdDYacf561KJG5 JaCjZMIfmdCbgZrjqA3fBxW cZnMyMlxjZjEgVGhlIGludG LyiBYkfDS3tA6tHW2eFWHcc OVeB4OcHYTxtfNprCDsIRV2 qQDjjZBvCR3lYRhcsWAvl2h mb8HwB8njuXseeMZ5CH5mJY JjBDWpORrkf7HlcY6cYbcvH XJccGFyIEEyOiBDRDMsIFBB VHPcALuuWEH4DQEXVAIkGWV hqvCBIaqbQ7orHyhuIQS6T1 xpbiBEMSwgQkNMMiwgQkNMN svlPGWMSQgfQs7AQPUqTQRK RVIgSVNILCBDRDEwLCBDRDU vOFJBMulsY5FtYNjzNZMkTq R0FKLULkHgJYXTO4kfPCPrw ZXbUPOcmyPsz5caA0hvCDOg KDH6NJ9xhuFwCwSySM2kpY4 0k7Qfx13zd20skO9clJDozs UvO07ptGMxnKMsq3LcUDDfw tLlzYW7AAXbYPaulgpik0q9 dJG5dYAzqZDxkRC8mBKzwPP kKDWNhCNcJBIko630sr7tPC GuyTWpcoUzeL6oGMpqxzruh BMfQM8kLZEgIDWmDIYuHZ30 sbGpGL3acHPje7cpceIdtMH hh2EcdNU3GNRnkOTqxzjmBz 7uZF63IXCzRTotkU1lwXSbc iAtND4cKB2rZ1O9nCArJKSj zrZmj9gyOMfxOW5iIMLwgUl jBwuwDHShSDFiswFstBE8JP RccGFyICBccGFyIEltbXVub 6ywm5DrN4cqcOdpxZK1ZOGa S9fkiPCgwZE6JZX7vC0hMWe dacNnLNPfp9BnCGAmMDKiMj I1bP7dQAL6TqWJoVfdSQN3L zE0AXwgXINuNH0uCVjgCNnq Y4XfaNHaTGJKEDZdv0isH6p dLVMoh1XhfA5ceAT3jIIrLA AchRE8MAHhATG7EEarvVNeQ OYpQBWazLCpoHZoLl2wpOLp A6CtF9pxguDecUFpfNW9dLF fHDtsbtKdSGW7WSEcjF3wMH 1hMDTqsLFwJY5unFImBCOkO PDdYZEpPPLco0OlITVtyp31 ECAyUezptZtnJYAwGo8oJh0 mAKUhwkDvNDZ5UhWYWW3otm dwkNWazIvoyn8vUTsyYBYKW XAqEALdEYV3JQDetD7yPEC7 tDP4ZVZ0O5eqU6jdUVCezzD wAT7bSBOqsVTaqiMtIZaeDL 9ehRXcXXWkc2SzzutpCYNiQ XA7YPI9UXwkJKFdKVHuTf8g TWYmdT5bV5DdPTR3rcQwr1Q rFvFNpIBhgH68bXQtin04EK RvQGXgV7ZzICPoJOYwVTznd hXfrCmgDHSac88dbZGweoXa f4PqjlAmXGWvW7scHSKhlDM eaOYtm8MpfM0cfXIsftDzWU Q4pLIfAZXduQ2zYDDdhBfpZ TVlfO7wF8EmVOwoHd5oVVGm bmbnRH6xfw98UO0wmpOgNO6 qurJzIA07upWcAvTgYWo4PA aOUReTKBz7LXGbdcUrkZHnf CRySTXfmE4wzFYfAl4xaDIq kKlyNFEdkCWaFSlomPrhB5b bnrdgXEderUQda7YciT4poG S7TZE2jE8tMqnpPHN8 Gross assessment was [facility] performed at ([facility], code = 2777) Department of Pathology, [address] [place] [address], Technical component [facility] was performed at ([facility], code = 2778) Department of Pathology, [address] [place], [place] [id number], Professional component [facility] was performed at ([facility], code = 2779) Department of Pathology, [address] [place], [place] [address], [facility] [id number] 14:36:22Surgical Pathology Report Case: [id number] Authorizing Provider: Ike Renner MD Collected: 08/11/2021 09:34 AM Ordering Location: [facility] Received: 08/11/2021 09:38 AM SERVICES Pathologist: Hayde Harper MD Specimens: A) - Lesion, left frontal periventricular lesion B) - Lesion,left frontal periventricular lesion A: BRAIN, LESION:LARGE B CELL LYMPHOMA (see comment)B: BRAIN, LESION:LARGE B CELL LYMPHOMA (see comment) Signing Pathologist Direct Phone Line: [phone] signed by Hayde Harper MD on 08/16/2021 at 2:36 PMMorphologic review, together with the immunohistochemical studies, are diagnostic of a 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 Correlation with the clinical features is recommended in order to distinguish between primary diffuse large B cell lymphoma (DLBCL) of the [employer] versus [employer] involvement by systemicDLBCL. Dr. Natarajan notified Dr. Renner of the preliminary diagnosis 08/15/2021, and Dr. Harper communicated the final diagnosis to Dr. Pressley 08/16/2021. Dr. Matt has reviewed selected slides and concurs with the diagnosis of large B cell lymphoma. 10604 x 2, 14408 x 2, 76369 x 11; 34678Bviyh lesion; Presents with worsening BLE weakness. The patient has been seen and evaluated extensively at multiple outside hospitals. He was recently admitted 07/05- at [facility]. He was given 5 days of IV solumedrol with imp rovement. Brain MRI shows FLAIR signal abnormality and enhancement in the left cerebral hemisphere, right brainstem, and posterior fossa is grossly unchanged. Brain lesionA. Lesion.The specimen is received fresh for frozen section diagnosis, labeled with the patient's name, medical record number and "lesion" and consists of 2 ashford-white soft tissue cores each measuring 0.7 cm in length. A touch prep is made and the specimen is entirely submitted.Section code:FSA 1: RepresentativeA2: Portion of 1 coreA3: Remainder of specimenB. Lesion.Received fresh, labeled the patient's name, MRN number and "left frontal periventricular lesion" is a 0.7 x 0.3 x 0.2 cm aggregate of anton-pink soft tissue. The specimen is filtered and submitted in toto in B1.MANNY Schofield. Lesion.BRAIN, LEFT FRONTAL PERIVENTRICULAR LESION, BIOPSY (FS A1/TP):-LESIONAL TISSUE WITH DENSE PERIVASCULAR INFLAMMATIONReported by Dr. Natarajan to Dr. Renner on 08/11/2021, at 0955.A. Sections show brain with a diffuse infiltrate of large lymphoid cells. The neoplastic infiltrate is positive for CD20, BCL2, PAX5, MUM1 (subset), BCL6 (subset) andnegative for NAIMA ZARINA, CD3, CD10, cyclin D1. Less than 40% of the neoplastic cells appear positive for c-MYC. Ki-67 highlights the large proliferating cells. CD3 also highlights small T cells within perivascular infiltrates. B. Sections show brain with a diffuse infiltrate of large lymphoid cells. Theneoplastic infiltrate is positive for CD20 and negative for CD3. The interpretation of this case included the use of immunohistochemistry or special stains.A2: CD3, PAX5, Ki-67, CD20A3: Ki-67, cyclin D1, BCL2, BCL6, MUM1, c-MYC, NAIMA ZARINA, CD10, CD5, CD3, CD20B1: CD20, SZ7Nwhhadd Slides Examined: In-house known positive controls were evaluated along with the test tissue. These control slides run alongside of the patients sample show appropriate staining. Internal positive and negative controls when available are evaluated Immunohistochemistry technical testing was performed at [facility], Pathology Laboratory where it was developed and its performance characteristics were determined. It has not been cleared or approved by the U.S. Food and Drug Administration. The FDA has determined that such clearance or approval is not necessary. The test is used for clinical purposes. It should not be regarded as investigational or for research. This laboratory is certified under the Clinical Laboratory Improvement Amendments of 1988 (CLIA-88) as qualified to perform high complexity clinical laboratory testing.[facility], Department of Pathology, [address] [place] [address], [facility], Department of Pathology, [address] [place] [address], [facility], Department of Pathology, [address] [place] [address], VJYGVCI FUNCTION [id number] 14:35:15 Test Item Value Reference Range Interpretation Comments TOTAL PROTEIN (BEAKER) (test code = 6.0 gm/dL 6.0-8.3 770) ALBUMIN (BEAKER) (test code = 1145) 3.4 g/dL 3.5-5.0 L BILIRUBIN TOTAL (BEAKER) (test code 0.4 mg/dL 0.2-1.2 = 377) BILIRUBIN DIRECT (BEAKER) (test 0.2 mg/dL 0.1-0.5 code = 706) ALKALINE PHOSPHATASE (BEAKER) (test 72 U/L 40-150 code = 346) AST (SGOT) (BEAKER) (test code = 15 U/L 5-34 353) ALT (SGPT) (BEAKER) (test code = 25 U/L 6-55 347) [employer] ID - BSPOCT-GLUCOSE [id number] 12:30:11 Test Item Value Reference Range Interpretation Comments POC-GLUCOSE METER 215 mg/dL 70-110 H : TESTED A T BSC 6720 (BEAKER) (test code = JEFF MÉNDEZ CO, 1538) 10800: [employer]/Techni sandra ID = [id number] for Ca rdenas, Laurie LACTATE DEHYDROGENASE (LDH)2021-08-16 11:13:49 Test Item Value Reference Range Interpretation Comments LACTATE DEHYDROGENASE (BEAKER) (test 242 U/L 125-220 H code = 635) [employer] ID - BSHEPATITIS B [id number] 10:56:14 Test Item Value Reference Range Interpretation Comments HEPATITIS B CORE TOTAL ANTIBODY Nonreactive Nonreactive (BEAKER) (test code = 497) HEPATITIS B SURFACE ANTIBODY < mIU/mL <8.0 (BEAKER) (test code = 647) HEPATITIS B SURFACE ANTIGEN (2) Nonreactive Nonreactive (BEAKER) (test code = 2585) [employer] ID - BS(CELLAVISION MANUAL DIFF)2021-08-16 10:46:33 Test Item Value Reference Range Interpretation Comments NEUTROPHILS - REL 81 % (CELLAVISION)(BEAKER) (test code = 2816) LYMPHOCYTES - REL 6 % (CELLAVISION)(BEAKER) (test code = 2817) MONOCYTES - REL 8 % (CELLAVISION)(BEAKER) (test code = 2818) MYELOCYTES - REL 1 % 0-0 H (CELLAVISION)(BEAKER) (test code = 2822) BANDS - REL (CELLAVISION)(BEAKER) 4 % 0-10 (test code = 2826) NEUTROPHILS - ABS 12.56 K/ul 1.78-5.38 H (CELLAVISION)(BEAKER) (test code = 2830) LYMPHOCYTES - ABS 0.93 K/ul 1.32-3.57 L (CELLAVISION)(BEAKER) (test code = 2831) MONOCYTES - ABS 1.24 K/uL 0.30-0.82 H (CELLAVISION)(BEAKER) (test code = 2832) MYELOCYTES-ABS 0.16 K/uL 0.00-0.00 H (CELLAVISION)(BEAKER) (test code = 2837) BANDS - ABS (CELLAVISION)(BEAKER) 0.62 K/uL 0.00-0.80 (test code = 2840) TOTAL COUNTED (BEAKER) (test code 100 = 1351) WBC MORPHOLOGY (BEAKER) (test code Normal = 487) PLT MORPHOLOGY (BEAKER) (test code Normal = 486) POLYCHROMATOPHILLIC RBCS(BEAKER) 1+ few (test code = 478) ANISOCYTOSIS (BEAKER) (test code = 1+ few 961) ARTIFACT (CELLAVISION)(BEAKER) Present (test code = 3432) PLATELET CONCENTRATION Adequate (CELLAVISION)(BEAKER) (test code = 3438) [employer] ID - Adriana OverholtUser comments: Slide comments:CBC W/PLT COUNT & AUTO [id number] 10:46:32 Test Item Value Reference Range Interpretation Comments WHITE BLOOD CELL COUNT (BEAKER) 15.5 K/ L 3.5-10.5 H (test code = 775) RED BLOOD CELL COUNT (BEAKER) 4.50 M/ L 4.63-6.08 L (test code = 761) HEMOGLOBIN (BEAKER) (test code = 12.0 GM/DL 13.7-17.5 L 410) HEMATOCRIT (BEAKER) (test code = 36.4 % 40.1-51.0 L 411) MEAN CORPUSCULAR VOLUME (BEAKER) 80.9 fL 79.0-92.2 (test code = 753) MEAN CORPUSCULAR HEMOGLOBIN 26.7 pg 25.7-32.2 (BEAKER) (test code = 751) MEAN CORPUSCULAR HEMOGLOBIN CONC 33.0 GM/DL 32.3-36.5 (BEAKER) (test code = 752) RED CELL DISTRIBUTION WIDTH 20.4 % 11.6-14.4 H (BEAKER) (test code = 412) PLATELET COUNT (BEAKER) (test 211 K/CU MM 150-450 code = 756) MEAN PLATELET VOLUME (BEAKER) 10.1 fL 9.4-12.4 (test code = 754) NUCLEATED RED BLOOD CELLS 0 /100 WBC 0-0 (BEAKER) (test code = 413) HEPATITIS C [id number] 10:45:55 Test Item Value Reference Range Interpretation Comments HEPATITIS C ANTIBODY (BEAKER) Nonreactive Nonreactive (test code = 367) [employer] ID - BSHIV-1 ANTIGEN WITH HIV-1/2 [id number] 10:44:14 Test Item Value Reference Range Interpretation Comments HIV-1 ANTIGEN WITH HIV 1\\T\\2 Nonreactive Nonreactive ANTIBODY (2) (BEAKER) (test code = 2586) [employer] ID - BSPOCT-GLUCOSE [id number] 06:39:40 Test Item Value Reference Range Interpretation Comments POC-GLUCOSE METER 140 mg/dL 70-110 H : TESTED A T [facility] 6720 (BEAKER) (test code = [place], 1538) 42975: [employer]/Techni sandra ID = [id number] for Joaquin Golden URIC [id number] 05:50:58 Test Item Value Reference Range Interpretation Comments URIC ACID (BEAKER) (test code = 4.7 mg/dL 2.6-7.2 773) [employer] ID - WILLY LBASIC METABOLIC [id number] 05:50:57 Test Item Value Reference Range Interpretation Comments SODIUM (BEAKER) 138 meq/L 136-145 (test code = 381) POTASSIUM (BEAKER) 4.2 meq/L 3.5-5.1 (test code = 379) CHLORIDE (BEAKER) 102 meq/L 98-107 (test code = 382) CO2 (BEAKER) (test 26 meq/L 22-29 code = 355) BLOOD UREA NITROGEN 21 mg/dL 7-21 (BEAKER) (test code = 354) CREATININE (BEAKER) 0.71 mg/dL 0.57-1.25 (test code = 358) GLUCOSE RANDOM 191 mg/dL 70-105 H (BEAKER) (test code = 652) CALCIUM (BEAKER) 9.1 mg/dL 8.4-10.2 (test code = 697) EGFR (BEAKER) (test 114 mL/min/1.73 ESTIM ATED GFR IS code = 1092) sq m NOT ACCURATE CREATININE CLEARANCE IN PREDICTING GLOMERULAR FILTRATION RATE . ESTIMATED GFR I S NOT APPLICABLE FOR DIALYSIS PATIEN TS. [employer] ID - WILLY [id number] 05:50:57 Test Item Value Reference Range Interpretation Comments PHOSPHORUS (ALICIA) (test code = 3.1 mg/dL 2.3-4.7 604) [employer] ID - WILLY LSARS-COV2/RT-PCR ([facility])2021-08-16 03:19:20 Test Item Value Reference Range Interpretation Comments SARS-COV2/RT-PCR (test code = Negative Negative [id number]) Negative result for this test determines that SARS-CoV-2 RNA was not present in the specimen above the Limit of Detection (LOD). However, Negative results do not preclude SARS-CoV-2 infection and should not be used as the sole basis for treatment or patient management decisions. Negative results must be combined with clinical observations, patient history, and epidemiological information. A false negative result may occur if a specimen is improperly collected, transported, or handled. A false negative result should be considered if patient's recent exposures or clinical presentation indicate that COVID-19 (SARS-CoV-2) is likely and diagnostic tests for other causes of illness are negative. Re-testing should be considered in cases of suspected false negatives.The limit of detection for this assay is 100 copies/mL.This SARS-CoV-2 test is a real-time RT_PCR test intended for the qualitative detection of nucleic acid from SARS-CoV-2 in a nasopharyngeal swab specimen collected from individuals suspected of COVID-19 by their healthcare provider.This test has not been Food and Drug Administration (FDA) cleared or approved. This is a modified version of an approved Emergency Use Authorization (EUA) and is in the process of review by the FDA. Once authorized by the FDA, the issued EUA will be effective until the declaration that circumstances exist justifying the authorization of the emergency use of in vitro diagnostic tests for detection and/or diagnosis of COVID-19 is terminated under Section 564(b)(2) of the Act or the EUA is revoked under Section 564(g) of the Act.Testing was performed using the Mccarty SARS-CoV-2 assay.Fact Sheet for Healthcare Providers:https://www.J[employer] App.mccarty/kaleb/RT SARS-CoV-2 HCP Fact Sheet 51- 247313.pdfFact Sheet for Healthcare Patients:https://www.[employer].Ebury/kaleb/RT SARS-CoV-2 Patient Fact Sheet EN 51-394310Q7.pdfPOCT-GLUCOSE [id number] 01:23:58 Test Item Value Reference Range Interpretation Comments POC-GLUCOSE METER 203 mg/dL 70-110 H : TESTED A T [facility] 6720 (ALICIA) (test code = [place], 1538) 13792: [employer]/Techni sandra ID = [id number] for Magda Moseley RAD, CHEST, 1 VIEW, NON [id number] 20:08:00Reason for exam:->PICC tip location verificationShould this be performed at the bedside?->Yes [facility] 1965 Sex: MFINAL REPORT TECHNIQUE: Frontal view of the chest. INDICATION: PICC tip location verification. COMPARISON: 08/15/2021 at 11:22 AM. FINDINGS: LINES/TUBES: Right PICC line tip projected over the distal SVC. Loop recorder device is present. HEART AND MEDIASTINUM: Cardiomediastinal contour is within normal limits. LUNGS: The lungs are well inflated and clear. No consolidation or pulmon robert edema. PLEURA: No pneumothorax. No significant pleural effusion. SOFT TISSUES AND BONES: Unremarkable. IMPRESSION:No acute cardiopulmonary process. Right PICC line tip projected over the distal SVC. Signed: Peter De Oliveira MDReport Verified Date/Time: 08/15/2021 20:08:12 Electronically signedby: PETER DE OLIVEIRA MD on 08/15/2021 08:08 PMPOCT-GLUCOSE [id number] 17:26:34 Test Item Value Reference Range Interpretation Comments POC-GLUCOSE METER 259 mg/dL 70-110 H : TESTED A T [facility] 6720 (BEAKER) (test code = [place], 1538) 33027: [employer]/Techni sandra ID = [id number] for An Emperatriz snowden [id number] 17:10:22 Test Item Value Reference Range Interpretation Comments FERRITIN (BEAKER) (test code = 223.58 ng/mL 5.00-275.00 361) [employer] ID - BSIRON, TIBC, % SAT. (WITHOUT FERRITIN)2021-08-15 16:50:34 Test Item Value Reference Range Interpretation Comments IRON (BEAKER) (test code = 547) 84.0 ug/dL 40.0-160.0 TOTAL IRON BINDING CAPACITY 270 ug/dL 250-450 (BEAKER) (test code = 769) IRON % SATURATION (2) (BEAKER) 31 % 20-55 (test code = 2590) [employer] ID - BSFL, ESOPH, SWALLOW FUNCTION, WITH CINE OR [id number] 15:10:00Reason for exam:->dysphagia [facility] : 1965 Sex: MFINAL REPORT Modified barium swallow exam with speech pathology service CLINICAL HISTORY: dysphagia IMPRESSION: Please see the speech pathology service report for details. Barium contrast of multiple consistencies is given to the patient to swallow. Fluoroscopic observation is performed during swallowing. Fluoro time: Two minutes Number of images: 1 Signed: Salma Costello MDReport Verified Date/Time: 08/15/2021 15:10:07 Reading Location: [address] Ortho Consult Reading Room [id number] 14:24:16 Test Item Value Reference Range Interpretation Comments URIC ACID (BEAKER) (test code = 4.5 mg/dL 2.6-7.2 773) [employer] ID - DBBASIC METABOLIC [id number] 14:24:15 Test Item Value Reference Range Interpretation Comments SODIUM (BEAKER) 135 meq/L 136-145 L (test code = 381) POTASSIUM (BEAKER) 4.2 meq/L 3.5-5.1 (test code = 379) CHLORIDE (BEAKER) 99 meq/L 98-107 (test code = 382) CO2 (BEAKER) (test 24 meq/L 22-29 code = 355) BLOOD UREA NITROGEN 20 mg/dL 7-21 (BEAKER) (test code = 354) CREATININE (BEAKER) 0.75 mg/dL 0.57-1.25 (test code = 358) GLUCOSE RANDOM 202 mg/dL 70-105 H (BEAKER) (test code = 652) CALCIUM (BEAKER) 9.3 mg/dL 8.4-10.2 (test code = 697) EGFR (BEAKER) (test 107 mL/min/1.73 ESTIM ATED GFR IS code = 1092) sq m NOT ACCURATE CREATININE CLEARANCE IN PREDICTING GLOMERULAR FILTRATION RATE . ESTIMATED GFR I S NOT APPLICABLE FOR DIALYSIS PATIEN TS. [employer] ID - [id number] 14:24:15 Test Item Value Reference Range Interpretation Comments PHOSPHORUS (BEAKER) (test code = 3.1 mg/dL 2.3-4.7 604) [employer] ID - DBRAD, CHEST, 1 VIEW, NON [id number] 13:10:00Reason for exam:- >chest painShould this be performed at the bedside?->Yes [facility] 1965 Sex: MFINAL REPORT Chest, 1 view. History: Chest pain. Comparison: 08/08/2021. Discussion: Enteric tube noted coursing below the diaphragm. Loop recorder noted projecting over the medial left hemithorax. The trachea is midline. The lungs are symmetrically expanded without evidence of focal consolidation, pneumothorax, or significant pleural effusion. The cardiomediastinal silhouette and pulmonary vasculature are within normal limits. No acute osseous abnormalities identified. IMPRESSION: No acute cardiopulmonary process identified. Signed: Chalino Stone Verified Date/Time: 08/15/2021 13:10:24 Reading Location: [facility] Radiology Reading Room POCT-GLUCOSE METER 2021-08-15 12:01:01 Test Item Value Reference Range Interpretation Comments POC-GLUCOSE METER 196 mg/dL 70-110 H : TESTED A T [facility] 6720 (BEAKER) (test code = LAKESHIAKULWINDER Antonio [place], 1538) 56705: [employer]/Techni sandra ID = [id number] for An Emperatriz snowden Oligoclonal [id number] 11:39:30 Test Item Value Reference Interpretation Comments Range Oligoclonal Bands, SEE BELOW ABSENT A The patie nt's CSF CSF (test code = contains mu ltiple 0985914) restriction ban ds that are also presen tin the patient's corre sponding serum sample. W e are unable to defin e whetherthese gammaglobulins are of systemic or intracerebral o rigin. Oligoclonal ban ds are present in the CSF of more than 85% o f patients withcl inically definite multip le sclerosis (MS). To distinguish betweenoligoclo nal bands in the CSF due to a peripheral gamm opathy and oligoclonal bands due to local produc tion in the MANAGEMENT TRAINEE PROGRAM STORES, serum and CSF should be testedsimultane ously. Oligoclonal ban ds can however be obse rved in a variety ofother diseases, e.g., subacute sclerosing panencephalitis , inflammatorypol yneuropat hy, MANAGEMENT TRAIN[employer] PROGRAM STORES lupus, and brain tumors and infa rctions. The clinicalsig nificance of a numerical band count, determin ed by isoelectric foc using,has not been defini tively defined. The da ta should be interpreted inconjunction w ith all pertinent clini samantha and laboratory data for this patient. FINAL RESOLUTION (test code = 4604070) FOREST (test code = Performing Lab FOREST) EZ Snapsheet [id number] [place] [address] I James JAMES, PhD, PASHA Lab Interpretation Abnormal (test code = 14084-9) [facility]lig[facility] [id number] 11:39:30 Test Item Value Reference Interpretation Comments Range Oligoclonal Bands, SEE BELOW ABSENT A The patie nt's CSF CSF (test code = contains mu ltiple 1050210) restriction ban ds that are also presen tin the patient's corre sponding serum sample. W e are unable to defin e whetherthese gammaglobulins are of systemic or intracerebral o rigin. Oligoclonal ban ds are present in the CSF of more than 85% o f patients withcl inically definite multip le sclerosis (MS). To distinguish betweenoligoclo nal bands in the CSF due to a peripheral gamm opathy and oligoclonal bands due to local produc tion in the MANAGEMENT TRAINEE PROGRAM STORES, serum and CSF should be testedsimultane ously. Oligoclonal ban ds can however be obse rved in a variety ofother diseases, e.g., subacute sclerosing panencephalitis , inflammatorypol yneuropat hy, MANAGEMENT TRAINEE PROGRAM STORES lupus, and brain tumors and infa rctions. The clinicalsig nificance of a numerical band count, determin ed by isoelectric foc using,has not been defini tively defined. The da ta should be interpreted inconjunction w ith all pertinent clini samantha and laboratory data for this patient. FINAL RESOLUTION (test code = 6462894) FOREST (test code = Performing Lab FOREST) EZ Snapsheet [facility] [address] [place] [address] Blake Ramirez MD, PhD, PASHA Lab Interpretation Abnormal (test code = 31579-7) [facility]PO[facility] [id number] 06:02:24 Test Item Value Reference Range Interpretation Comments POC-GLUCOSE METER 194 mg/dL 70-110 H : TESTED A T [facility] 6720 (BEAKER) (test code = [facility] R [facility], 1538) 24193: [employer]/Techni sandra ID = [id number] for Marcela Dye POCT-GLUCOSE [id number] 00:40:48 Test Item Value Reference Range Interpretation Comments POC-GLUCOSE METER 230 mg/dL 70-110 H : TESTED A T [facility] 6720 (BEAKER) (test code = [facility] R [facility], 1538) 41862: [employer]/Techni sandra ID = [id number] for Rubén wheat Marcela POCT-GLUCOSE [id number] 18:22:10 Test Item Value Reference Range Interpretation Comments POC-GLUCOSE METER 216 mg/dL 70-110 H : TESTED A T [facility] 6720 (BEAKER) (test code = [facility] R [facility], 1538) 82894: [employer]/Techni sandra ID = [id number] for Um ehGeorgeumbu VDRL, [id number] 14:05:44 Test Item Value Reference Range Interpretation Comments VDRL, CSF (test code = Nonreactive Nonreactive 5290-2) FOREST (test code = FOREST) TEST PERFORMED BY [facility] Lab Interpretation (test Normal code = 52170-3) [facility] HospitalVDRL, [id number] 14:05:44 Test Item Value Reference Range Interpretation Comments VDRL, CSF (test code = Nonreactive Nonreactive 5290-2) FOREST (test code = FOREST) TEST PERFORMED BY [facility] Lab Interpretation (test Normal code = 91998-7) [facility]MIS[facility]LLANEOUS LAB [id number] 12:41:29 Test Item Value Reference Range Interpretation Comments SCAN RESULT (test code = See scanned report [id number]) See scanned reportMycobacterium TB PCR [id number] 12:17:27 Test Item Value Reference Range Interpretation Comments MYCOBACTERIUM TB (test See scanned report code = [id number]) FOREST (test code = FOREST) See scanned report [facility] HospitalMycobacterium TB PCR [id number] 12:17:27 Test Item Value Reference Range Interpretation Comments MYCOBACTERIUM TB (test See scanned report code = [id number]) FOREST (test code = FOREST) See scanned report [facility] [id number] 12:16:48 Test Item Value Reference Range Interpretation Comments Scan Result (test code = See scanned report [id number]) FOREST (test code = FOREST) See scanned report [facility] anti [id number] 12:16:48 Test Item Value Reference Range Interpretation Comments Scan Result (test code = See scanned report [id number]) FOREST (test code = FOREST) See scanned report [facility] [id number] 12:16:48 Test Item Value Reference Range Interpretation Comments SCAN RESULT (test code = See scanned report [id number]) See scanned reportPASCELLASAINT [facility] [id number] 12:16:11 Test Item Value Reference Range Interpretation Comments SCAN RESULT (test code = See scanned report [id number]) See scanned reportPOCT-GLUCOSE [id number] 11:49:31 Test Item Value Reference Range Interpretation Comments POC-GLUCOSE METER 178 mg/dL 70-110 H : TESTED A T [facility] 6720 (BEAKER) (test code = JEFF [employer] [facility], 1538) 06453: [employer]/Techni sandra ID = [id number] for Um eh, Akumbu POCT-GLUCOSE [id number] 07:14:00 Test Item Value Reference Range Interpretation Comments POC-GLUCOSE METER 228 mg/dL 70-110 H : TESTED A T [facility] 6720 (BEAKER) (test code = JEFF Alvarez [facility], 1538) 64160: [employer]/Techni sandra ID = [id number] for Marcella Ann [id number] 06:39:51 Test Item Value Reference Range Interpretation Comments MAGNESIUM (BEAKER) (test code = 2.4 mg/dL 1.6-2.6 627) [employer] ID - THOMAS [id number] 06:39:51 Test Item Value Reference Range Interpretation Comments PHOSPHORUS (BEAKER) (test code = 2.6 mg/dL 2.3-4.7 604) [employer] ID - THOMAS MBASIC METABOLIC [id number] 06:39:50 Test Item Value Reference Range Interpretation Comments SODIUM (BEAKER) 140 meq/L 136-145 (test code = 381) POTASSIUM (BEAKER) 4.1 meq/L 3.5-5.1 (test code = 379) CHLORIDE (BEAKER) 105 meq/L 98-107 (test code = 382) CO2 (BEAKER) (test 26 meq/L 22-29 code = 355) BLOOD UREA NITROGEN 19 mg/dL 7-21 (BEAKER) (test code = 354) CREATININE (BEAKER) 0.78 mg/dL 0.57-1.25 (test code = 358) GLUCOSE RANDOM 217 mg/dL 70-105 H (BEAKER) (test code = 652) CALCIUM (BEAKER) 9.0 mg/dL 8.4-10.2 (test code = 697) EGFR (BEAKER) (test 102 mL/min/1.73 ESTIM ATED GFR IS code = 1092) sq m NOT ACCURATE CREATININE CLEARANCE IN PREDICTING GLOMERULAR FILTRATION RATE . ESTIMATED GFR I S NOT APPLICABLE FOR DIALYSIS PATIEN TS. [employer] ID - THOMAS MCBC W/PLT COUNT & AUTO [id number] 05:49:22 Test Item Value Reference Range Interpretation Comments WHITE BLOOD CELL COUNT (BEAKER) 15.9 K/ L 3.5-10.5 H (test code = 775) RED BLOOD CELL COUNT (BEAKER) 4.40 M/ L 4.63-6.08 L (test code = 761) HEMOGLOBIN (BEAKER) (test code = 11.6 GM/DL 13.7-17.5 L 410) HEMATOCRIT (BEAKER) (test code = 35.5 % 40.1-51.0 L 411) MEAN CORPUSCULAR VOLUME (BEAKER) 80.7 fL 79.0-92.2 (test code = 753) MEAN CORPUSCULAR HEMOGLOBIN 26.4 pg 25.7-32.2 (BEAKER) (test code = 751) MEAN CORPUSCULAR HEMOGLOBIN CONC 32.7 GM/DL 32.3-36.5 (BEAKER) (test code = 752) RED CELL DISTRIBUTION WIDTH 20.3 % 11.6-14.4 H (BEAKER) (test code = 412) PLATELET COUNT (BEAKER) (test 230 K/CU MM 150-450 code = 756) MEAN PLATELET VOLUME (BEAKER) 9.8 fL 9.4-12.4 (test code = 754) NUCLEATED RED BLOOD CELLS 0 /100 WBC 0-0 (BEAKER) (test code = 413) NEUTROPHILS RELATIVE PERCENT 83 % (BEAKER) (test code = 429) LYMPHOCYTES RELATIVE PERCENT 6 % (BEAKER) (test code = 430) MONOCYTES RELATIVE PERCENT 6 % (BEAKER) (test code = 431) EOSINOPHILS RELATIVE PERCENT 0 % (BEAKER) (test code = 432) BASOPHILS RELATIVE PERCENT 0 % (BEAKER) (test code = 437) NEUTROPHILS ABSOLUTE COUNT 13.23 K/ L 1.78-5.38 H (BEAKER) (test code = 670) LYMPHOCYTES ABSOLUTE COUNT 0.93 K/ L 1.32-3.57 L (BEAKER) (test code = 414) MONOCYTES ABSOLUTE COUNT (BEAKER) 0.91 K/ L 0.30-0.82 H (test code = 415) EOSINOPHILS ABSOLUTE COUNT 0.00 K/ L 0.04-0.54 L (BEAKER) (test code = 416) BASOPHILS ABSOLUTE COUNT (BEAKER) 0.03 K/ L 0.01-0.08 (test code = 417) IMMATURE GRANULOCYTES-RELATIVE 5 % 0-1 H PERCENT (BEAKER) (test code = 2801) POCT-GLUCOSE [id number] 00:15:23 Test Item Value Reference Range Interpretation Comments POC-GLUCOSE METER 254 mg/dL 70-110 H : TESTED Michelle T [facility] 6720 (BEAKER) (test code = [place], 1538) 50060: [employer]/Techni sandra ID = [id number] for AFSANEH HUGGINS POCT-GLUCOSE [id number] 18:25:17 Test Item Value Reference Range Interpretation Comments POC-GLUCOSE METER 157 mg/dL 70-110 H : TESTED A T [facility] 6720 (BEAKER) (test code = [facility], 1538) 61849: [employer]/Techni sandra ID = [id number] for JACQUIE RICHTERILIA POCT-GLUCOSE [id number] 12:18:18 Test Item Value Reference Range Interpretation Comments POC-GLUCOSE METER 230 mg/dL 70-110 H : TESTED A T [facility] 6720 (BEAKER) (test code = [facility], 1538) 99800: [employer]/Techni sandra ID = [id number] for LIVE MOONEY, TERESA POCT-GLUCOSE [id number] 06:51:37 Test Item Value Reference Range Interpretation Comments POC-GLUCOSE METER 200 mg/dL 70-110 H : TESTED A T [facility] 6720 (BEAKER) (test code = [facility], 1538) 97111: [employer]/Techni sandra ID = [id number] for AFSANEH HUGGINS BASIC METABOLIC [id number] 05:42:08 Test Item Value Reference Range Interpretation Comments SODIUM (BEAKER) 140 meq/L 136-145 (test code = 381) POTASSIUM (BEAKER) 3.9 meq/L 3.5-5.1 (test code = 379) CHLORIDE (BEAKER) 106 meq/L 98-107 (test code = 382) CO2 (BEAKER) (test 24 meq/L 22-29 code = 355) BLOOD UREA NITROGEN 14 mg/dL 7-21 (BEAKER) (test code = 354) CREATININE (BEAKER) 0.83 mg/dL 0.57-1.25 (test code = 358) GLUCOSE RANDOM 233 mg/dL 70-105 H (BEAKER) (test code = 652) CALCIUM (BEAKER) 9.0 mg/dL 8.4-10.2 (test code = 697) EGFR (BEAKER) (test 95 mL/min/1.73 ESTIMA PRADEEP GFR IS code = 1092) sq m NOT ACCURATE CREATININE CLEARANCE IN PREDICTING GLOMERULAR FILTRATION RATE . ESTIMATED GFR I S NOT APPLICABLE FOR DIALYSIS PATIEN TS. [employer] ID - PIAYA [id number] 05:42:08 Test Item Value Reference Range Interpretation Comments MAGNESIUM (BEAKER) (test code = 2.2 mg/dL 1.6-2.6 627) [employer] ID - WILLY [id number] 05:42:08 Test Item Value Reference Range Interpretation Comments PHOSPHORUS (BEAKER) (test code = 2.0 mg/dL 2.3-4.7 L 604) [employer] ID Charles AGUILERA LCBC W/PLT COUNT & AUTO [id number] 04:57:18 Test Item Value Reference Range Interpretation Comments WHITE BLOOD CELL COUNT (BEAKER) 14.1 K/ L 3.5-10.5 H (test code = 775) RED BLOOD CELL COUNT (BEAKER) 4.39 M/ L 4.63-6.08 L (test code = 761) HEMOGLOBIN (BEAKER) (test code = 11.5 GM/DL 13.7-17.5 L 410) HEMATOCRIT (BEAKER) (test code = 35.3 % 40.1-51.0 L 411) MEAN CORPUSCULAR VOLUME (BEAKER) 80.4 fL 79.0-92.2 (test code = 753) MEAN CORPUSCULAR HEMOGLOBIN 26.2 pg 25.7-32.2 (BEAKER) (test code = 751) MEAN CORPUSCULAR HEMOGLOBIN CONC 32.6 GM/DL 32.3-36.5 (BEAKER) (test code = 752) RED CELL DISTRIBUTION WIDTH 19.9 % 11.6-14.4 H (BEAKER) (test code = 412) PLATELET COUNT (BEAKER) (test 265 K/CU MM 150-450 code = 756) MEAN PLATELET VOLUME (BEAKER) 9.9 fL 9.4-12.4 (test code = 754) NUCLEATED RED BLOOD CELLS 0 /100 WBC 0-0 (BEAKER) (test code = 413) NEUTROPHILS RELATIVE PERCENT 87 % (BEAKER) (test code = 429) LYMPHOCYTES RELATIVE PERCENT 6 % (BEAKER) (test code = 430) MONOCYTES RELATIVE PERCENT 2 % (BEAKER) (test code = 431) EOSINOPHILS RELATIVE PERCENT 0 % (BEAKER) (test code = 432) BASOPHILS RELATIVE PERCENT 0 % (BEAKER) (test code = 437) NEUTROPHILS ABSOLUTE COUNT 12.32 K/ L 1.78-5.38 H (BEAKER) (test code = 670) LYMPHOCYTES ABSOLUTE COUNT 0.89 K/ L 1.32-3.57 L (BEAKER) (test code = 414) MONOCYTES ABSOLUTE COUNT (BEAKER) 0.29 K/ L 0.30-0.82 L (test code = 415) EOSINOPHILS ABSOLUTE COUNT 0.00 K/ L 0.04-0.54 L (BEAKER) (test code = 416) BASOPHILS ABSOLUTE COUNT (BEAKER) 0.04 K/ L 0.01-0.08 (test code = 417) IMMATURE GRANULOCYTES-RELATIVE 4 % 0-1 H PERCENT (BEAKER) (test code = 2801) POCT-GLUCOSE [id number] 00:59:29 Test Item Value Reference Range Interpretation Comments POC-GLUCOSE METER 220 mg/dL 70-110 H : TESTED A T [facility] 6720 (BEAKER) (test code = LAKESHIAKULWINDER Alvarez [facility], 1538) [address]: [employer]Techn[employer] sandra ID = [id number] for EL UMIR, AFSANEH CT, BRAIN, WITHOUT [id number] 22:55:00Tingling upper extUnlisted Reason for Exam - Click Yes and Enter Reason Below->No [facility] : 1965 Sex: MFINAL REPORT CT Head without contrast CLINICAL HISTORY: Altered mental status TECHNIQUE: Contiguous axial images through the head without contrast. This exam was performed according to the departmental dose optimization program which includes automated exposure control, adjustmentof the mA and/or kV according to the patient size, and/or use of an iterative reconstruction technique. COMPARISON: CT head dated prior day FINDINGS:Prior left sided robbin hole with trace hemorrhage along the surgical tract. There is mild surrounding edema. Interval decrease degree of pneumocephalus.. Unchanged lucency in the right cerebellar hemisphere. There is no CT evidence of acute infarct . There is periventricular and subcortical white matter hypodensity which is nonspecific but compatible with chronic microvascular ischemic change. There are atherosclerotic calcifications of the intracranialcirculation. There is generalized parenchymal volume loss without hydrocephalus, midline shift, or ap parent mass effect. Basilar cisterns are patent. The visualized paranasal sinuses are well-aerated. Intraorbital contents are unremarkable. Enteric tube is seen coursing inferiorly. IMPRESSION: Expected evolution of the postsurgical changes of the prior left frontal biopsy. Signed: Brian Byers Verified Date/Time: 08/12/2021 22:55:33 POCT-GLUCOSE [id number] 18:11:16 Test Item Value Reference Range Interpretation Comments POC-GLUCOSE METER 190 mg/dL 70-110 H : TESTED A T [facility] 6720 ([facility] (test code = [place], 1538) [address]: [employer]/Techni sandra ID = [id number] for eh, [place] RAD, ABDOMEN/KUB, 1 VIEW [id number] 16:50:00Reason for exam:->post NG [facility] : 1965 Sex: MFINAL REPORT EXAMINATION: RAD, ABDOMEN/KUB, 1 VIEW AP. INDICATION: 56-year-old male status post NG tube placement. COMPARISON: Abdominal radiograph dated 08/12/2021. FINDINGS \\T\\ IMPRESSION:Enteric tube is looped in the stomach. Other findings remain unchanged. Signed: Eboni FlanaganMDReport Verified Date/Time: 08/12/2021 16:50:10 Reading Location: [facility] C013X Ortho Consult Reading Room RAD, ABDOMEN/KUB, 1 VIEW [id number] 15:51:00Reason for exam:->post NGS[facility]Name: [facility] : 1965 Sex: MFINAL REPORT EXAMINATION: RAD, ABDOMEN/KUB, 1 VIEW AP. INDICATION: 56-year-old male status post NG tube placement. COMPARISON: Abdominal radiograph dated 08/12/2021 at 10:52 AM. FINDINGS \\T\\ IMPRESSION:Enteric tube overlies the first portion of the duodenum. Other findings remain unchanged. Signed: Eboni Flanagan MDReport Verified Date/Time: 08/12/2021 15:51:01 Reading Location: [facility] C013X Ortho Consult Reading Room IgG Index (CSF + Blood)2021-08-12 13:37:00 Test Item Value Reference Range Interpretation Comments Synthesis Rate IgG, 4.1 See_Comment H [Automa pradeep CSF (test code = message] Th e ) system which generated this result transmit pradeep reference range : -9.9 TO +3.3 mg /24 h. The referenc e range was not u sed to interpret th is result as normal/abnormal . Igg Index,Csf (test 0.55 <0.66 code = 9674072) Albumin, CSF (test 54 mg/dL 8.0-42.0 H code = ) IgG, CSF (test code 7 mg/dL 0.8-7.7 = ) IMMUNOGLOBULIN G, 852 mg/dL 600-1640 SERUM (test code = ) Albumin, Serum (test 3.6 g/dL 3.5-5.2 The Ig G Synthesis code = 1391023) rate, CSF an d IgG index, CSF are two formulae forestimating t he amount of IgG produced in the central nervous system. Evidenc eof increased synthesis of Ig G provides suppor t for the diagnos is of multiplescleros is. FOREST (test code = Performing Lab EZ FOREST) [employer] [id number] [place] [id number] Blake Ramirez MD, PhD, PASHA Lab Interpretation Abnormal (test code = 39797-7) [facility] + Blood)2021-08-12 13:37:00 Test Item Value Reference Range Interpretation Comments Synthesis Rate IgG, 4.1 See_Comment H [Automa pradeep CSF (test code = message] Th e ) system which generated this result transmit pradeep reference range : -9.9 TO +3.3 mg /24 h. The referenc e range was not u sed to interpret th is result as normal/abnormal . Igg Index,Csf (test 0.55 <0.66 code = 20190517) Albumin, CSF (test 54 mg/dL 8.0-42.0 H code = ) IgG, CSF (test code 7 mg/dL 0.8-7.7 = ) IMMUNOGLOBULIN G, 852 mg/dL 600-1640 SERUM (test code = ) Albumin, Serum (test 3.6 g/dL 3.5-5.2 The Ig G Synthesis code = 4226134) rate, CSF an d IgG index, CSF are two formulae forestimating t he amount of IgG produced in the central nervous system. Evidenc eof increased synthesis of Ig G provides suppor t for the diagnos is of multiplescleros is. FOREST (test code = Performing Lab EZ FOREST) [employer] [address] [place] [address] Blake Ramirez MD, PhD, PASHA Lab Interpretation Abnormal (test code = 20591-5) [facility]PO[facility] [id number] 12:45:00 Test Item Value Reference Range Interpretation Comments POC-GLUCOSE METER 140 mg/dL 70-110 H : TESTED A T [facility] 6720 (BEAKER) (test code = [place], 1538) [address]: [employer]/Techni sandra ID = [id number] for Um eh, [place] RAD, ABDOMEN/KUB, 1 VIEW [id number] 11:27:00Reason for exam:->ng placement [facility] : 1965 Sex: MFINAL REPORT EXAMINATION: RAD, ABDOMEN/KUB, 1 VIEW AP. INDICATION: 56-year-old male status post NG tube placement. COMPARISON: Abdominal radiograph dated 08/12/2021 at 4:25 AM. FINDINGS \\T\\ IMPRESSION:An enteric tube overlies the first portion of the duodenum. Other findings remainunchanged. Signed: Eboni Flanagan MDReport Verified Date/Time: 08/12/2021 11:27:01 Reading Location: [address] Ortho Consult Reading Room Electronically signed by: EBONI FLANAGAN MD on 1:27 [id number] 06:40:38 Test Item Value Reference Range Interpretation Comments MAGNESIUM (BEAKER) (test code = 2.0 mg/dL 1.6-2.6 627) [employer] ID - THOMAS [id number] 06:40:38 Test Item Value Reference Range Interpretation Comments PHOSPHORUS (BEAKER) (test code = 3.4 mg/dL 2.3-4.7 604) [employer] ID Charles GUZMAN MBASIC METABOLIC [id number] 06:40:37 Test Item Value Reference Range Interpretation Comments SODIUM (BEAKER) 140 meq/L 136-145 (test code = 381) POTASSIUM (BEAKER) 4.2 meq/L 3.5-5.1 (test code = 379) CHLORIDE (BEAKER) 108 meq/L 98-107 H (test code = 382) CO2 (BEAKER) (test 25 meq/L 22-29 code = 355) BLOOD UREA NITROGEN 9 mg/dL 7-21 (BEAKER) (test code = 354) CREATININE (BEAKER) 0.75 mg/dL 0.57-1.25 (test code = 358) GLUCOSE RANDOM 129 mg/dL 70-105 H (BEAKER) (test code = 652) CALCIUM (BEAKER) 8.7 mg/dL 8.4-10.2 (test code = 697) EGFR (BEAKER) (test 107 mL/min/1.73 ESTIM ATED GFR IS code = 1092) sq m NOT ACCURATE CREATININE CLEARANCE IN PREDICTING GLOMERULAR FILTRATION RATE . ESTIMATED GFR I S NOT APPLICABLE FOR DIALYSIS PATIEN TS. [employer] ID Charles GUZMAN MCBC W/PLT COUNT & AUTO [id number] 06:20:15 Test Item Value Reference Range Interpretation Comments WHITE BLOOD CELL COUNT (BEAKER) 14.5 K/ L 3.5-10.5 H (test code = 775) RED BLOOD CELL COUNT (BEAKER) 4.31 M/ L 4.63-6.08 L (test code = 761) HEMOGLOBIN (BEAKER) (test code = 11.2 GM/DL 13.7-17.5 L 410) HEMATOCRIT (BEAKER) (test code = 34.3 % 40.1-51.0 L 411) MEAN CORPUSCULAR VOLUME (BEAKER) 79.6 fL 79.0-92.2 (test code = 753) MEAN CORPUSCULAR HEMOGLOBIN 26.0 pg 25.7-32.2 (BEAKER) (test code = 751) MEAN CORPUSCULAR HEMOGLOBIN CONC 32.7 GM/DL 32.3-36.5 (BEAKER) (test code = 752) RED CELL DISTRIBUTION WIDTH 19.9 % 11.6-14.4 H (BEAKER) (test code = 412) PLATELET COUNT (BEAKER) (test 257 K/CU MM 150-450 code = 756) MEAN PLATELET VOLUME (BEAKER) 9.8 fL 9.4-12.4 (test code = 754) NUCLEATED RED BLOOD CELLS 0 /100 WBC 0-0 (BEAKER) (test code = 413) NEUTROPHILS RELATIVE PERCENT 85 % (BEAKER) (test code = 429) LYMPHOCYTES RELATIVE PERCENT 7 % (BEAKER) (test code = 430) MONOCYTES RELATIVE PERCENT 6 % (BEAKER) (test code = 431) EOSINOPHILS RELATIVE PERCENT 0 % (BEAKER) (test code = 432) BASOPHILS RELATIVE PERCENT 0 % (BEAKER) (test code = 437) NEUTROPHILS ABSOLUTE COUNT 12.27 K/ L 1.78-5.38 H (BEAKER) (test code = 670) LYMPHOCYTES ABSOLUTE COUNT 1.04 K/ L 1.32-3.57 L (BEAKER) (test code = 414) MONOCYTES ABSOLUTE COUNT (BEAKER) 0.82 K/ L 0.30-0.82 (test code = 415) EOSINOPHILS ABSOLUTE COUNT 0.00 K/ L 0.04-0.54 L (BEAKER) (test code = 416) BASOPHILS ABSOLUTE COUNT (BEAKER) 0.05 K/ L 0.01-0.08 (test code = 417) IMMATURE GRANULOCYTES-RELATIVE 2 % 0-1 H PERCENT (BEAKER) (test code = 2801) POCT-GLUCOSE [id number] 05:49:14 Test Item Value Reference Range Interpretation Comments POC-GLUCOSE METER 134 mg/dL 70-110 H : Notified RN/MD: (ALICIA) (test code = TESTED AT [facility] 6720 1538) [place] [place], [address]: [employer]/Techni sandra ID = [id number] for [place], IRENE ICE RAD, ABDOMEN/KUB, 1 VIEW [id number] 04:47:00Reason for exam:->tube placementS[facility]AS [facility]ENTERName: [facility] : 1965 Sex: MFINAL REPORT TECHNIQUE: Supine views of the abdomen. INDICATION: tube placement. COMPARISON: 08/09/2021. FINDINGS/IMPRESSION: The feeding tube tip now overlies the second segment of the duodenum. Bowel gas pattern remains nonobstructive. Otherwise, no acute abnormality. Signed: Hilary Ramos Verified Date/Time: 08/12/2021 04:47:21 Electronically signed by: La GAMBLE 08/12/2021 04:47 AMPOCT-GLUCOSE [id number] 23:25:37 Test Item Value Reference Range Interpretation Comments POC-GLUCOSE METER 208 mg/dL 70-110 H : Notified RN/MD: (ALICIA) (test code = TESTED AT [facility] 6720 1538) [facility], [address]: [employer]/Techni sandra ID = [id number] for IRENE CHOUDHARY Angiotensin converting enzyme, [id number] 21:58:41 Test Item Value Reference Range Interpretation Comments TAWNY, CSF (test 6 U/L See_Comment [Automated m essage] code = The system [employer] 1024499) generated this result transmit pradeep reference range : < OR = 15. The reference range was not used to interpret this result as normal/abnormal . FOREST (test code Performing Lab EZ = FOREST) [facility] [address] [place] [address] Blake Ramirez MD, PhD, PASHA [facility] HospitalAngiotensin converting enzyme, [id number] 21:58:41 Test Item Value Reference Range Interpretation Comments TAWNY, CSF (test 6 U/L See_Comment [Automated m essage] code = The system [employer] 1941801) generated this result transmit pradeep reference range : < OR = 15. The reference range was not used to interpret this result as normal/abnormal . FOREST (test code Performing Lab EZ = FOREST) [facility] [place] [address] [place] [address] Blake Ramirez MD, PhD, PASHA [facility] HospitalPOCT-GLUCOSE [id number] 18:04:37 Test Item Value Reference Range Interpretation Comments POC-GLUCOSE METER 201 mg/dL 70-110 H : TESTED A T [facility] 6720 (ALICIA) (test code = [place], 1538) [address]: [employer]/Techni sandra ID = [id number] for RO LULA PARRA Aquaporin-4 (AQP4)(NMO-IgG) Antibody with Reflex to Titer, [id number] 14:10:27 Test Item Value Reference Range Interpretation Comments AQUAPORIN 4 AB, NEGATIVE NEGATIVE This test w as CBA, CSF (test developed and its code = 8569267) analytical p erformance characteristics havebeen determ ined by [employer] [facility] .It has not been cleare d or approved by FDA . This assay has been validatedpursua nt to the CLIA regula tions and is used for clinical purpos es. AQUAPORIN 4 AB, TNP See_Comment Test not per formed. TITER, CSF Reflex testing not (test code = required since 1554977) established cri teriawas not met. This t est was developed and i ts analytical perf ormance characteristics havebeen determ ined by [employer] [facility] .It has not been cleare d or approved by FDA . This assay has been validatedpursua nt to the CLIA regula tions and is used for clinical purpos es. [Automated mess age] The system which ge nerated this result tra nsmitted reference range : <1:10 titer. The refe rence range was not u sed to interpret this result as normal/abnor mal. FOREST (test code Performing Lab EZ = FOREST) [facility] [place] [address] [place] [address] Blake Ramirez MD, PhD, PASHA [facility] HospitalAquaporin-4 (AQP4)(NMO-IgG) Antibody with Reflex to Titer, [id number] 14:10:27 Test Item Value Reference Range Interpretation Comments AQUAPORIN 4 AB, NEGATIVE NEGATIVE This test w as CBA, CSF (test developed and its code = 2867078) analytical p erformance characteristics havebeen determ ined by [employer] [facility] .It has not been cleare d or approved by FDA . This assay has been validatedpursua nt to the CLIA regula tions and is used for clinical purpos es. AQUAPORIN 4 AB, TNP See_Comment Test not per formed. TITER, CSF Reflex testing not (test code = required since ) established cri teriawas not met. This t est was developed and i ts analytical perf ormance characteristics havebeen determ ined by [employer] [facility] .It has not been cleare d or approved by FDA . This assay has been validatedpursua nt to the CLIA regula tions and is used for clinical purpos es. [Automated mess age] The system which ge nerated this result tra nsmitted reference range : <1:10 titer. The refe rence range was not u sed to interpret this result as normal/abnor mal. FOREST (test code Performing Lab EZ = FOREST) [employer] [facility] [address] [place] [address] Blake Ramirez MD, PhD, PASHA [facility] HospitalPOCT[facility]GLUCOSE [id number] 13:00:07 Test Item Value Reference Range Interpretation Comments POC-GLUCOSE METER 129 mg/dL 70-110 H : TESTED A T [facility] 6720 (ALICIA) (test code = [place], 1538) [address]: [employer]/Techni sandra ID = [id number] for MA RTINEZ, TERESA CT, ABDOMEN, [id number] 12:59:00Unlisted Reason for Exam - Click Yes and Enter Reason Below->NoWill this procedure require oral contrast?->NoPlease specify:->Renal [facility] : 1965 Sex: MFINAL REPORT CT, ABDOMEN, WITHOUT \\T\\ WITH CONTRAST HISTORY: Renal mass, normalrenal function COMPARISON: None. TECHNIQUE: CT abdomen only, without and with IV contrast, renal mass protocol. The examination was performed according to the departmental dose-optimization program, which includes automated exposure control, adjustment of the mA and/or kV according to patient size and/or use of iterative reconstruction technique. FINDINGS:Lung bases: Trace dependent atelectatic changes.Liver: Mildly decreased in attenuation diffusely. No solid mass.Gallbladder and bile ducts: Unremarkable.Spleen: Markedly enlarged.Pancreas: Unremarkable.Adrenals: UnremarkableKidneys and ureters: No hydronephrosis bilaterally. A nonobstructive 12 mm long calculus at the right lower pole. Multiple bilateral renal lesions, most of which including simple cysts, intrinsically hyperattenuating related to hemorrhagic/proteinaceous renal cysts, and some renal lesions which are too small to characterize,for example: - A hemorrhagic/proteinaceous right upper pole renal cyst with some layering milk of calcium measures 2.7 cm. - A simple 4.6 cm interpolar region right renal cyst. - A 1.5 cm mildly hemorrhagic/proteinaceous cyst in the right interpolar region. - A 1.1 cm intrinsically hyperattenuating lesion in the left anterior interpolar region (series 1 image 42) which appears to enhance. - A subcenti meter intrinsically hyperattenuating lesion which is too small to characterize but is probably a hemorrhagic/pronation renal cyst (series 1 image 48)Bowel: Corpak tube tip in the fourth portion of the duodenum. Nondilated bowel with no wall thickening.Lymph nodes: Unremarkable.Peritoneum: Unremarkable.Vessels: Minimal atherosclerotic calcifications.Abdominal wall: Unremarkable.Bones: An intraosseous hemangioma at L3. No suspicious osseous lesions.. IMPRESSION: 1.A 1.1 cm intrinsically hyperattenuating left renal lesion in the anterior interpolar region which appears to enhance but is at the lower limits of that which can be reliably characterized by imaging. A 3 month follow-up abdominal MRI without and with IV contrast is recommended. 2.Other renal lesions as above which are nonsuspicious or toosmall to characterize. 3.Nonobstructive 12 mm right lower pole renal calculus. 4.Mild hepatic steatosis and severe splenomegaly. Signed: Bill Rodriguez Verified Date/Time: 08/11/2021 12:59:17 Reading Location: [facility] Diagnostic Imaging Reading Room - [place] [address] CT, BRAIN, WITHOUT [id number] 12:33:00Unlisted Reason for Exam - Click Yes and Enter Reason Below->YesUnlisted Reason for Exam->s/p brain biopsy [facility] : 1965 Sex: MFINAL REPORT CT Head without contrast CLINICAL HISTORY: Unlisted Reason for Exams/p brain biopsy TECHNIQUE: Contiguous axial CT images through the head without contrast. This exam was performed according to the departmental dose optimization program which includes automated exposure control, adjustment of the mA and/or kV according to the patient size, and/or use of an iterative r econstruction technique. COMPARISON: MRI 08/08/2021 FINDINGS: The patient is status post left frontal robbin hole with an underlying biopsy tract extending into the frontal white matter. There is expected pneumocephalus and trace blood products. Edema changes in the left cerebral hemisphere, right brainstem and posterior fossa again noted, although less well depicted than on the MRI. There is generalizedparenchymal volume loss without hydrocephalus or midline shift. IMPRESSION: Status post left frontalbiopsy without untoward intracranial complication. Signed: Krzysztof Doran MDReport Verified Date/Time: 08/11/2021 12:33:45 ELET AGGREGATION: FUNCTION [id number] 08:36:40 Test Item Value Reference Range Interpretation Comments [id number] Rahul Rachel M.D (BEAKER) (test code = (electronic 2622) signature) PLATELET COUNT AGG 259 K/CU MM 150-450 (BEAKER) (test code = 2656) ADP (BEAKER) (test code 89 % 62-100 = 4654) PLATELET RICH 272 k/cu mm 200-300 PLASMA(BEAKER) (test code = 2134) PLATELET FUNCTION SCREEN Normal aggregation INTERPRETATION (BEAKER) results with ADP. No (test code = 4655) evidence of platelet dysfunction or P2Y12 inhibitor effect. Platelet Function Screen results may be falsely low with platelet counts<75,000/cu mm.[employer] ID- [id number]-GLUCOSE [id number] 06:13:20 Test Item Value Reference Range Interpretation Comments POC-GLUCOSE METER 118 mg/dL 70-110 H : Notified RN/MD: (BEAKER) (test code = TESTED AT [facility] 6720 1538) [facility], [address]: [employer]/Techni sandra ID = [id number] for IRENE CHOUDHARY BASIC METABOLIC [id number] 03:04:58 Test Item Value Reference Range Interpretation Comments SODIUM (BEAKER) 136 meq/L 136-145 (test code = 381) POTASSIUM (BEAKER) 3.8 meq/L 3.5-5.1 (test code = 379) CHLORIDE (BEAKER) 102 meq/L 98-107 (test code = 382) CO2 (BEAKER) (test 25 meq/L 22-29 code = 355) BLOOD UREA NITROGEN 11 mg/dL 7-21 (BEAKER) (test code = 354) CREATININE (BEAKER) 0.78 mg/dL 0.57-1.25 (test code = 358) GLUCOSE RANDOM 114 mg/dL 70-105 H (BEAKER) (test code = 652) CALCIUM (BEAKER) 8.9 mg/dL 8.4-10.2 (test code = 697) EGFR (BEAKER) (test 102 mL/min/1.73 ESTIM ATED GFR IS code = 1092) sq m NOT ACCURATE CREATININE CLEARANCE IN PREDICTING GLOMERULAR FILTRATION RATE . ESTIMATED GFR I S NOT APPLICABLE FOR DIALYSIS PATIEN TS. [employer] ID - THOMAS [id number] PLATELET [id number] 02:26:56 Test Item Value Reference Range Interpretation Comments POC-P2Y12 PLATELET AGG (BEAKER) (test 321 PRU code = 2303) RANGE INFORMATION: PRU reference range is 194-418. Post Drug Results: Lower PRU levels are associated with expected antiplatelet effect. Values may be below the stated reference range above. The post-drug PRU values reported in the [employer] P2Y12 package insert are [id number].CBC W/PLT COUNT & AUTO DIFFERENTIAL 2021-08-11 02:17:52 Test Item Value Reference Range Interpretation Comments WHITE BLOOD CELL COUNT (BEAKER) 8.8 K/ L 3.5-10.5 (test code = 775) RED BLOOD CELL COUNT (BEAKER) 4.40 M/ L 4.63-6.08 L (test code = 761) HEMOGLOBIN (BEAKER) (test code = 11.5 GM/DL 13.7-17.5 L 410) HEMATOCRIT (BEAKER) (test code = 35.1 % 40.1-51.0 L 411) MEAN CORPUSCULAR VOLUME (BEAKER) 79.8 fL 79.0-92.2 (test code = 753) MEAN CORPUSCULAR HEMOGLOBIN 26.1 pg 25.7-32.2 (BEAKER) (test code = 751) MEAN CORPUSCULAR HEMOGLOBIN CONC 32.8 GM/DL 32.3-36.5 (BEAKER) (test code = 752) RED CELL DISTRIBUTION WIDTH 19.9 % 11.6-14.4 H (BEAKER) (test code = 412) PLATELET COUNT (BEAKER) (test 246 K/CU MM 150-450 code = 756) MEAN PLATELET VOLUME (BEAKER) 9.1 fL 9.4-12.4 L (test code = 754) NUCLEATED RED BLOOD CELLS 0 /100 WBC 0-0 (BEAKER) (test code = 413) NEUTROPHILS RELATIVE PERCENT 63 % (BEAKER) (test code = 429) LYMPHOCYTES RELATIVE PERCENT 21 % (BEAKER) (test code = 430) MONOCYTES RELATIVE PERCENT 10 % (BEAKER) (test code = 431) EOSINOPHILS RELATIVE PERCENT 4 % (BEAKER) (test code = 432) BASOPHILS RELATIVE PERCENT 1 % (BEAKER) (test code = 437) NEUTROPHILS ABSOLUTE COUNT 5.53 K/ L 1.78-5.38 H (BEAKER) (test code = 670) LYMPHOCYTES ABSOLUTE COUNT 1.85 K/ L 1.32-3.57 (BEAKER) (test code = 414) MONOCYTES ABSOLUTE COUNT (BEAKER) 0.91 K/ L 0.30-0.82 H (test code = 415) EOSINOPHILS ABSOLUTE COUNT 0.31 K/ L 0.04-0.54 (BEAKER) (test code = 416) BASOPHILS ABSOLUTE COUNT (BEAKER) 0.05 K/ L 0.01-0.08 (test code = 417) IMMATURE GRANULOCYTES-RELATIVE 2 % 0-1 H PERCENT (BEAKER) (test code = 2801) POCT-GLUCOSE [id number] 23:30:25 Test Item Value Reference Range Interpretation Comments POC-GLUCOSE METER 129 mg/dL 70-110 H : Notified RN/MD: (ALICIA) (test code = TESTED AT [place] [address]) [facility], [address]: [employer]/Techni sandra ID = [id number] for IRENE CHOUDHARY ICE POCT-GLUCOSE [id number] 17:53:43 Test Item Value Reference Range Interpretation Comments POC-GLUCOSE METER 103 mg/dL 70-110 : TESTED A T [place] [address] (ALICIA) (test code = [facility], 1538) [address]: [employer]/Techni sandra ID = [id number] for An Kathia snowden CSF culture + gram [id number] 14:11:47 Test Item Value Reference Range Interpretation Comments Result (test code = 6463-4) No growth Gram Stain Result (test No organisms seen code = 1123) [facility] gram [id number] 14:11:47 Test Item Value Reference Range Interpretation Comments Result (test code = 6463-4) No growth Gram Stain Result (test No organisms seen code = 1123) [facility] + GRAM [id number] 14:11:47 Test Item Value Reference Range Interpretation Comments CULTURE (BEAKER) (test code No growth = 1095) GRAM STAIN RESULT (BEAKER) <1+ WBCs (test code = 1123) GRAM STAIN RESULT (BEAKER) No organisms seen (test code = 84134) POCT-GLUCOSE [id number] 13:31:19 Test Item Value Reference Range Interpretation Comments POC-GLUCOSE METER 135 mg/dL 70-110 H : TESTED A T [facility] 6720 (BEAKER) (test code = [facility] [employer] [place], 1538) [address]: [employer]/Techni sandra ID = [id number] for LIVE MOONEY, TERESA BASIC METABOLIC [id number] 08:58:22 Test Item Value Reference Range Interpretation Comments SODIUM (BEAKER) 137 meq/L 136-145 (test code = 381) POTASSIUM (BEAKER) 3.7 meq/L 3.5-5.1 (test code = 379) CHLORIDE (BEAKER) 104 meq/L 98-107 (test code = 382) CO2 (BEAKER) (test 24 meq/L 22-29 code = 355) BLOOD UREA NITROGEN 9 mg/dL 7-21 (BEAKER) (test code = 354) CREATININE (BEAKER) 0.78 mg/dL 0.57-1.25 (test code = 358) GLUCOSE RANDOM 140 mg/dL 70-105 H (BEAKER) (test code = 652) CALCIUM (BEAKER) 8.9 mg/dL 8.4-10.2 (test code = 697) EGFR (BEAKER) (test 102 mL/min/1.73 ESTIM ATED GFR IS code = 1092) sq m NOT ACCURATE CREATININE CLEARANCE IN PREDICTING GLOMERULAR FILTRATION RATE . ESTIMATED GFR I S NOT APPLICABLE FOR DIALYSIS PATIEN TS. [employer] ID - DBPOCT-GLUCOSE [id number] 07:49:23 Test Item Value Reference Range Interpretation Comments POC-GLUCOSE METER 129 mg/dL 70-110 H : TESTED A T [facility] 6720 (BEAKER) (test code = [facility] [employer] [place], 1538) [id number]: [employer] sandra ID = [id number] for MA RTINEZ, TERESA BASIC METABOLIC [id number] 07:32:55 Test Item Value Reference Range Interpretation Comments SODIUM (BEAKER) 132 meq/L 136-145 L (test code = 381) POTASSIUM (BEAKER) 5.5 meq/L 3.5-5.1 H (test code = 379) CHLORIDE (BEAKER) 102 meq/L 98-107 (test code = 382) CO2 (BEAKER) (test 23 meq/L 22-29 code = 355) BLOOD UREA NITROGEN 9 mg/dL 7-21 (BEAKER) (test code = 354) CREATININE (BEAKER) 0.94 mg/dL 0.57-1.25 (test code = 358) GLUCOSE RANDOM 521 mg/dL 70-105 HH (BEAKER) (test code = 652) CALCIUM (BEAKER) 8.1 mg/dL 8.4-10.2 L (test code = 697) EGFR (BEAKER) (test 82 mL/min/1.73 ESTIMA PRADEEP GFR IS code = 1092) sq m NOT ACCURATE CREATININE CLEARANCE IN PREDICTING GLOMERULAR FILTRATION RATE . ESTIMATED GFR I S NOT APPLICABLE FOR DIALYSIS PATIEN TS. [employer] ID - DBPOCT-GLUCOSE [id number] 06:49:19 Test Item Value Reference Range Interpretation Comments POC-GLUCOSE METER 135 mg/dL 70-110 H : TESTED A T [facility] 6720 (BEAKER) (test code = [place]FF M[place], 1538) [id number]: [employer] sandra ID = [id number] for Joaquin Golden CBC W/PLT COUNT & AUTO [id number] 06:28:18 Test Item Value Reference Range Interpretation Comments WHITE BLOOD CELL COUNT (BEAKER) 7.5 K/ L 3.5-10.5 (test code = 775) RED BLOOD CELL COUNT (BEAKER) 4.51 M/ L 4.63-6.08 L (test code = 761) HEMOGLOBIN (BEAKER) (test code = 12.1 GM/DL 13.7-17.5 L 410) HEMATOCRIT (BEAKER) (test code = 37.6 % 40.1-51.0 L 411) MEAN CORPUSCULAR VOLUME (BEAKER) 83.4 fL 79.0-92.2 (test code = 753) MEAN CORPUSCULAR HEMOGLOBIN 26.8 pg 25.7-32.2 (BEAKER) (test code = 751) MEAN CORPUSCULAR HEMOGLOBIN CONC 32.2 GM/DL 32.3-36.5 L (BEAKER) (test code = 752) RED CELL DISTRIBUTION WIDTH 20.4 % 11.6-14.4 H (BEAKER) (test code = 412) PLATELET COUNT (BEAKER) (test 247 K/CU MM 150-450 code = 756) MEAN PLATELET VOLUME (BEAKER) 9.9 fL 9.4-12.4 (test code = 754) NUCLEATED RED BLOOD CELLS 0 /100 WBC 0-0 (BEAKER) (test code = 413) NEUTROPHILS RELATIVE PERCENT 61 % (BEAKER) (test code = 429) LYMPHOCYTES RELATIVE PERCENT 21 % (BEAKER) (test code = 430) MONOCYTES RELATIVE PERCENT 12 % (BEAKER) (test code = 431) EOSINOPHILS RELATIVE PERCENT 3 % (BEAKER) (test code = 432) BASOPHILS RELATIVE PERCENT 1 % (BEAKER) (test code = 437) NEUTROPHILS ABSOLUTE COUNT 4.58 K/ L 1.78-5.38 (BEAKER) (test code = 670) LYMPHOCYTES ABSOLUTE COUNT 1.57 K/ L 1.32-3.57 (BEAKER) (test code = 414) MONOCYTES ABSOLUTE COUNT (BEAKER) 0.87 K/ L 0.30-0.82 H (test code = 415) EOSINOPHILS ABSOLUTE COUNT 0.22 K/ L 0.04-0.54 (BEAKER) (test code = 416) BASOPHILS ABSOLUTE COUNT (BEAKER) 0.09 K/ L 0.01-0.08 H (test code = 417) IMMATURE GRANULOCYTES-RELATIVE 2 % 0-1 H PERCENT (BEAKER) (test code = 2801) POCT-GLUCOSE [id number] 00:57:52 Test Item Value Reference Range Interpretation Comments POC-GLUCOSE METER 127 mg/dL 70-110 H : TESTED A T [facility] 6720 (BEAKER) (test code = JEFF [place], 1538) [id number]: [employer] sandra ID = [id number] for Joaquin Golden POCT-GLUCOSE [id number] 18:03:04 Test Item Value Reference Range Interpretation Comments POC-GLUCOSE METER 115 mg/dL 70-110 H : TESTED A T [facility] 6720 (BEAKER) (test code = JEFF MÉNDE[place], 1538) [address]: [employer] sandra ID = [id number] for LIVE RTINEZ, TERESA CT, CHEST, WITH [id number] 10:17:00Unlisted Reason for Exam - Click Yes and Enter Reason Below->No [facility] 1965 Sex: MFINAL REPORT CT Chest, abdomen, and pelvis with contrast History:Neoplasm, lymphoma Comparison:none Technique: serial axial imaging was performed following up to 100cc of non ioniciodinated intravenous contrast as per departmental protocol. Multiplanar images are reconstructed and reviewed when indicated. This CT examination is performed using one or more of the following dose reduction techniques: Automated exposure control, adjustment of the mA and /or kV according to patientsize, and/or use of iterative reconstruction technique. Findings:No mediastinal or hilar lymphadenopathy. Normal size heart. Small pericardial effusion. No thoracic aortic aneurysm or dissection. No central pulmonary arterial filling defect. Patent central airways. No pleural effusion or pneumothorax.The lungs demonstrate dependent atelectasis, but are otherwise clear. Unremarkable appearance of pancreas and spleen. Unremarkable appearance of liver and gallbladder. Unremarkable appearance of the adrenal glands. A simple appearing right renal cyst measures 4.8 cm in size and requires no further imaging follow-up. Indeterminate exophytic hypodense lesions are identified involving the superior and interpolar right kidney measuring 1.7 cm and 1.3 cm respectively in size. . No small or large bowel obstruction. No apparent bowel wall thickening. No findings to indicate acute appendicitis. No free fluid or lymphadenopathy. No abdominal aortic aneurysm. No aggressive osseous lesion. Impression: 1. No evidence of lymphadenopathy in the chest, abdomen, or pelvis.2. Indeterminate hypodense lesions involving the superior and interpolar right kidney measuring 1.7 and 1.3 cm in size. Differential diagnostic considerations would include hemorrhagic cysts versus low grade solid lesions. Further characterization with nonemergent CT abdomen without and with contrast (renal mass protocol) is suggested. Signed: Mack Wagner MDReport Verified Date/Time: 08/09/2021 10:17:47 Reading Location: [address] Ortho Consult Reading Room CT, [id number] 10:17:00Unlisted Reason for Exam - Click Yes and Enter Reason Below->NoIs this for enterography?->NoWill this procedure require oral contrast?->No [facility] 1965 Sex: MFINAL REPORT CT Chest, abdomen, and pelvis with contrast History:Neoplasm, lymphoma Comparison:none Technique: serial axial imaging was performed following up to 100cc of non ioniciodinated intravenous contrast as per departmental protocol. Multiplanar images are reconstructed and reviewed when indicated. This CT examination is performed using one or more of the following dose reduction techniques: Automated exposure control, adjustment of the mA and /or kV according to patientsize, and/or use of iterative reconstruction technique. Findings:No mediastinal or hilar lymphadenopathy. Normal size heart. Small pericardial effusion. No thoracic aortic aneurysm or dissection. No central pulmonary arterial filling defect. Patent central airways. No pleural effusion or pneumothorax.The lungs demonstrate dependent atelectasis, but are otherwise clear. Unremarkable appearance of pancreas and spleen. Unremarkable appearance of liver and gallbladder. Unremarkable appearance of the adrenal glands. A simple appearing right renal cyst measures 4.8 cm in size and requires no further imaging follow-up. Indeterminate exophytic hypodense lesions are identified involving the superior and interpolar right kidney measuring 1.7 cm and 1.3 cm respectively in size. . No small or large bowel obstruction. No apparent bowel wall thickening. No findings to indicate acute appendicitis. No free fluid or lymphadenopathy. No abdominal aortic aneurysm. No aggressive osseous lesion. Impression: 1. No evidence of lymphadenopathy in the chest, abdomen, or pelvis.2. Indeterminate hypodense lesions involving the superior and interpolar right kidney measuring 1.7 and 1.3 cm in size. Differential diagnostic considerations would include hemorrhagic cysts versus low grade solid lesions. Further characterization with nonemergent CT abdomen without and with contrast (renal mass protocol) is suggested. Signed: Mack Wagner [facility] Verified Date/Time: 08/09/2021 10:17:47 Reading Location: [address] Consult Reading Room RAD, ABDOMEN/KUB, 1 VIEW [id number] 09:12:00Reason for exam:->to check for tube placement [facility] RAM[facility] : 1965 Sex: MFINAL REPORT RAD, ABDOMEN/KUB, 1 VIEW AP CLINICAL INDICATION: to check for tubeplacement COMPARISON: None TECHNIQUE: Frontal radiograph(s) of the abdomen. FINDINGS: The bowel gas pattern is nonobstructive. The feeding tube tip overlies the distal stomach. Evaluation for free air is limited by portable supine technique. Within these limitations, no free air is identified. IMPRESSI ON: The feeding tube tip overlies the distal stomach. Signed: Eros Dye MDReport Verified Date/Time: 08/09/2021 09:12:07 [facility] Electronically signedby: EROS DYE MD on 08/09/2021 09:12 AMBASIC METABOLIC [id number] 04:44:44 Test Item Value Reference Range Interpretation Comments SODIUM (BEAKER) 137 meq/L 136-145 (test code = 381) POTASSIUM (BEAKER) 3.7 meq/L 3.5-5.1 (test code = 379) CHLORIDE (BEAKER) 104 meq/L 98-107 (test code = 382) CO2 (BEAKER) (test 22 meq/L 22-29 code = 355) BLOOD UREA NITROGEN 7 mg/dL 7-21 (BEAKER) (test code = 354) CREATININE (BEAKER) 0.85 mg/dL 0.57-1.25 (test code = 358) GLUCOSE RANDOM 127 mg/dL 70-105 H (BEAKER) (test code = 652) CALCIUM (BEAKER) 8.8 mg/dL 8.4-10.2 (test code = 697) EGFR (BEAKER) (test 93 mL/min/1.73 ESTIMA PRADEEP GFR IS code = 1092) sq m NOT ACCURATE CREATININE CLEARANCE IN PREDICTING GLOMERULAR FILTRATION RATE . ESTIMATED GFR I S NOT APPLICABLE FOR DIALYSIS PATIEN TS. [employer] ID - THOMAS [facility] W/PLT COUNT & AUTO [id number] 04:28:39 Test Item Value Reference Range Interpretation Comments WHITE BLOOD CELL COUNT (BEAKER) 10.9 K/ L 3.5-10.5 H (test code = 775) RED BLOOD CELL COUNT (BEAKER) 5.09 M/ L 4.63-6.08 (test code = 761) HEMOGLOBIN (BEAKER) (test code = 13.0 GM/DL 13.7-17.5 L 410) HEMATOCRIT (BEAKER) (test code = 41.2 % 40.1-51.0 411) MEAN CORPUSCULAR VOLUME (BEAKER) 80.9 fL 79.0-92.2 (test code = 753) MEAN CORPUSCULAR HEMOGLOBIN 25.5 pg 25.7-32.2 L (BEAKER) (test code = 751) MEAN CORPUSCULAR HEMOGLOBIN CONC 31.6 GM/DL 32.3-36.5 L (BEAKER) (test code = 752) RED CELL DISTRIBUTION WIDTH 20.4 % 11.6-14.4 H (BEAKER) (test code = 412) PLATELET COUNT (BEAKER) (test 309 K/CU MM 150-450 code = 756) MEAN PLATELET VOLUME (BEAKER) 9.6 fL 9.4-12.4 (test code = 754) NUCLEATED RED BLOOD CELLS 0 /100 WBC 0-0 (BEAKER) (test code = 413) NEUTROPHILS RELATIVE PERCENT 71 % (BEAKER) (test code = 429) LYMPHOCYTES RELATIVE PERCENT 13 % (BEAKER) (test code = 430) MONOCYTES RELATIVE PERCENT 9 % (BEAKER) (test code = 431) EOSINOPHILS RELATIVE PERCENT 3 % (BEAKER) (test code = 432) BASOPHILS RELATIVE PERCENT 1 % (BEAKER) (test code = 437) NEUTROPHILS ABSOLUTE COUNT 7.76 K/ L 1.78-5.38 H (BEAKER) (test code = 670) LYMPHOCYTES ABSOLUTE COUNT 1.44 K/ L 1.32-3.57 (BEAKER) (test code = 414) MONOCYTES ABSOLUTE COUNT (BEAKER) 0.99 K/ L 0.30-0.82 H (test code = 415) EOSINOPHILS ABSOLUTE COUNT 0.29 K/ L 0.04-0.54 (BEAKER) (test code = 416) BASOPHILS ABSOLUTE COUNT (BEAKER) 0.10 K/ L 0.01-0.08 H (test code = 417) IMMATURE GRANULOCYTES-RELATIVE 3 % 0-1 H PERCENT (BEAKER) (test code = 2801) SARS-COV2/RT-PCR ([facility])2021-08-09 03:52:04 Test Item Value Reference Range Interpretation Comments SARS-COV2/RT-PCR (test code = Negative Negative [id number]) Negative result for this test determines that SARS-CoV-2 RNA was not present in the specimen above the Limit of Detection (LOD). However, Negative results do not preclude SARS-CoV-2 infection and should not be used as the sole basis for treatment or patient management decisions. Negative results must be combined with clinical observations, patient history, and epidemiological information. A false negative result may occur if a specimen is improperly collected, transported, or handled. A false negative result should be considered if patient's recent exposures or clinical presentation indicate that COVID-19 (SARS-CoV-2) is likely and diagnostic tests for other causes of illness are negative. Re-testing should be considered in cases of suspected false negatives.The limit of detection for this assay is 100 copies/mL.This SARS-CoV-2 test is a real-time RT_PCR test intended for the qualitative detection of nucleic acid from SARS-CoV-2 in a nasopharyngeal swab specimen collected from individuals suspected of COVID-19 by their healthcare provider.This test has not been Food and Drug Administration (FDA) cleared or approved. This is a modified version of an approved Emergency Use Authorization (EUA) and is in the process of review by the FDA. Once authorized by the FDA, the issued EUA will be effective until the declaration that circumstances exist justifying the authorization of the emergency use of in vitro diagnostic tests for detection and/or diagnosis of COVID-19 is terminated under Section 564(b)(2) of the Act or the EUA is revoked under Section 564(g) of the Act.Testing was performed using Dotted Block SARS-CoV-2 assay.Fact Sheet for Healthcare Providers:https://www.[employer].mccarty/kaleb/RT SARS-CoV-2 HCP Fact Sheet 51- 473330.pdfFact Sheet for Healthcare Patients:https://www.[employer].mccarty/kaleb/RT SARS-CoV-2 Patient Fact Sheet EN 51-109402A3.pdfPT/[id number] 19:36:32 Test Item Value Reference Range Interpretation Comments PROTIME (BEAKER) (test 12.9 seconds 11.9-14.2 code = 759) INR (BEAKER) (test 0.99 See_Comment [Automat ed code = 370) message] The sy stem which generated this result transmitted reference range : <=5.90. The reference range was not used to interpret this result as normal/abnormal . PARTIAL THROMBOPLASTIN 30.9 seconds 22.5-36.0 TIME (BEAKER) (test code = 760) RECOMMENDED COUMADIN/WARFARIN INR THERAPY RANGESSTANDARD DOSE: 2.0 - 3.0 Includes: PROPHYLAXIS for venous thrombosis, systemic embolization; TREATMENT for venous thrombosis and/or pulmonary embolus.HIGH RISK: Target INR is 2.5-3.5 for patients with mechanical heart valves.MR, BRAIN, [id number] 18:59:00 Stealth MRI brain w contrast onlyUnlisted Reason for Exam - Click Yes and Enter Reason Below->NoDoes the patient have an implanted electronic device?->No [facility] : 1965 Sex: MFINAL REPORT MRI Brain with and without contrast Clinical History: Intraop or postop complications, nervous system Technique: Stealth protocol MRI brain utilizing thin section noncontrast axial T1, T2 FLAIR; and postcontrast axial T1-weighted imaging with coronal and sagittal reformations. Comparisons: MRI brain 08/04/2021 and 08/05/2021 Findings: FLAIR signal abnormality and patchy e nhancement in the posterior left frontal lobe and deep white matter is grossly unchanged. More masslike FLAIR signal abnormality and enhancement of the midbrain, rhonda, and right cerebellar peduncle is also grossly unchanged. Enhancement is again seen extending into the adjacent right thalamocapsular re gion and medial right cerebellar hemisphere. There is no hydrocephalus or midline shift. Please notethat other abnormalities such as acute infarction and hemorrhage cannot be excluded given the specifically tailored sequences for treatment planning purposes. IMPRESSION: FLAIR signal abnormality and en hancement in the left cerebral hemisphere, right brainstem, and posterior fossa is grossly unchanged. The differential diagnosis includes neoplasm/lymphoma, tumefactive demyelination, and atypical infection. Signed: Krzysztof Doran MDReport Verified Date/Time: 08/08/2021 18:59:09 RAD, CHEST, 1 VIEW, NON DEPT 2021-08-08 17:06:00Reason for exam:->Pre opShould this be performed at the bedside?->Yes[facility] : 1965 Sex: MFINAL REPORT TECHNIQUE: Frontal view of the chest. INDICATION: Pre op. COMPARISON: 01/08/2021. FINDINGS: LINES/TUBES: Loop recorder device is present.. HEART AND MEDIASTINUM: Cardiomediastinal contour is within normal limits. LUNGS: The lungs are well inflated and clear. No consolidation or pulmonary edema. PLEURA: No pneumothorax. No significant pleural effusion. SOFT TISSUES ANDBONES: Unremarkable. IMPRESSION:No acute cardiopulmonary process. Signed: Peter De Oliveira MDReport Verified Date/Time: 08/08/2021 17:06:00 [id number] 14:44:01 Test Item Value Reference Range Interpretation Comments Case Report (test code Medical Cytology = 104) Report Case: [id number] Authorizing Provider: Jadyn Fernandez Collected: 08/07/2021 04:31 PM MD Rickie Ordering Location: [address] Received: 08/08/2021 08:12 AM Service Pathologist: Althea Mcnamara MD Specimen: CSF, tube 4 DIAGNOSTIC CATEGORY NEGATIVE FOR (test code = 2754) MALIGNANCY DIAGNOSIS (test code = [id number] 3220) ArtiMzNcZnRuYmpcdWMx IHtccnRmMVxlcGljOTYwMl wayhSgVDVcfOBiN1Wygkgf AChaAP5tTM3dmGranMPcrM FwNZBcMyDsm3kxg666tBFo b9mtTRWZzhgkwIp6sCedU6 4tz9K8ObdaP06esBMfXYZ7 HBNzRBDihZTmJALbAKW4KJ ZrdMGmD6duDFBtMD1bktnw UMvuOMcpPGCmjVU9EFZqeF ShL7PgAYDqSYsyMFMkjty0 EjYqJh1bcFTjdFscZLiyII LxPMXxENilRBZvNeWfE1LJ YEKTR9MJBM8SFXOQHOMAFO ufS1kEG7nDH1mjoQThZAMj HoNbEhWQTGFMRjDlYy6IIH 0MOIbHWaNIY4numXPnwCeg nlOuZRyxa4PzXCvfRUWfMJ 2ezHueJGRkAB9gAAVpD7if sK5nrvp3KzFoOIFqJjG6WO VwekF2Olm4VXXbOBnzl1qb f4TyGOFjVUu2lYgaCfIrKB Roz6njubDoAiPrOIRaOQYr PCHzhRKgS281r7alb0aapj ZgwOY3XANwBYJ1RLsslnEc vyK7JQveyHKwYnR8NIwogz AkISyhlbMtquPhYow4PVTl P695RWW0sRdzu8dlQAM5PY CaEJUyRcWcEo9iaYWrM331 VEPtPAKXSSNawFx3JAXnyx YxzyFaaPNHv612M596w8ez VMSqicRzaLsPjshtn6eeL4 19XHBhcGVydzEyMjQwXHBh vVWqgEO3KTQbDZ7nfoykYW myOXlwXVAlqkG9BJWuzFWk P7VjKAKbHH3hxdzyYFZ9BS bbSDVoCIL7SdGvCZAgc5Ta pxy2TlLgpg6yap36RUG9q8 YonVduGOV9DTC0MmQmDh7y lIJbOEMoPR2sCxQqjENcUN Svlk16vSpoYMcyZHR8BIKl ybCio9Mok3zwMqXuwzWtS9 neI8SyCKWuWOEuJKAtIcYy taHpz2Mvv3KqzMXetVf9j1 ryGRAbPIQeqNtso9njDGI1 KBZukKMaE1nezY2lNKMvMC 3nicrzc4wqALhlGTrrMOYb cCO0reK6MDYvrVZsQ1VxjS 2jMBPeLHvwGZHwarw6KyRz Ah6kxCOqjGnaBCkvQxksOP dlXHBnbmNvbnRccGduZGVj XHBsYWluXHBsYWluXGYwXG ZzMjRccWxcbGFuZzEwMzNc aGljaFxmMVxkYmNoXGYxXG dbR7vaEjRsIuSmKln9MPIt fTYaGEGyDel3SJOryHVuOX JExZyxrA6cRYIoiWhbrS4n oLC7TGWxheHwxCVBmV9tOU IFjB7uMtP2SPTtZcy9HZF7 ThUTRiHhAYf3RY30HvCvSA Bhcn19 CPT Code(s) (test code a2hpxPHqXNHreIS6NvJbAQ = 3357) Meu1see1ZutZUvvCAnOSsv vZSnpjPfdf24oHR8yF53GI 9jHENgCzL7KEKvhuC9Oph4 YIWcBNBmyVTnP271z7ygz0 kdajQaqWU6cQubMLXaesbn FkM0CNutMGNzoctxOCq1LD nkICQecHE2MMUqyQZoI6Zi TDFmVP2ggmz6SLJ7DMbpFF CgKzQ2BHDmoYRkTOHgsZjp NHrmc802UZB7VpAnOTUufx IabOibrL4aXyFqCGV4FKXt OFxwYXJ9 CLINICAL DATA (test i4zrpNNcRTNcvWY3GqKeNE code = 3355) Wpn0ovz9BdeWZcpKEqVPmj vEPqsdMjuq06vSB1uA03YA 4qOJUvWxJ7ZWNrkiW5Wit7 JOGgQLZqhHCcO646z6sgi6 fdyyZooFA9jCtqHPBmcpye PxQ3LKugBETslxnkXOm5AW shSZVvhRW6TBCysKOgT7Ml XIVzNC5bkkp3ACM6CGbvRC SuHgU2UTActIHbUSPutVcr LNirk171UNC2IdLgUDFqlk SpiHiycU9uNjGiNGEiehew ciBoeCBvZiBDVkEsIGEgZm liIHMvcCBhYmxhdGlvbiBu o8Zdz43xSBJlZXaLIkvjPX mILUJtseJpzeXyWU67TKNm QJrpw3IqdkUiAgT4xI4nWd QhqMz1NQMIQkG7dI9fxYHo p2QprNOwd5n5tCK2x0RxOY 5pbmcgQkxFIHdlYWtuZXNz BMYgs2UpaOHjRRrwZJHdHD Wqf0OlXfeaqdftZKatohRv LlxwYXJ9 SPECIMEN SOURCE (test b8ltvYBeZBUjlZN8EjSvXI code = 3377) Kyl4dgu5FuiGSpaFDgRQcv oEVsvsCmiz93hTM3gF21VG 9nBUBeHdH4CYMbtwR2Xiw9 LEIcEUMjdMSiV212j3yij1 ythhZjmKV6xAprSTAspimp IxX8LNckHWSxinosANi9AL zzQDObbFF7MFMqaLBuL4Ww ZXHhUC0ddjc0NRG0PWtfAP ZiLjN2HACfnCFyEZOdjHds RUybt012BCS3WxYcJXTgqy IswDkyxP7qIxOmZJASJ2Ot cGFyfQ== GROSS DESCRIPTION (test c2bhpIBtWPJblRTNSUZfU1 code = [id number]) cdsmDfJZTaaMZoN1Kqxupz MYehDD1iLF2sxBnpoOFgkE DcWM4CRXYqVrKvMIYyySPw fiQbJnVuUSLrzIDgpAG9QT RpAL6avzkfQPsiQCffZNYr phP3SLRtwQXcU1RnXPRvNA 0dbcdcVPG0WBgguS2elmXV FfiyQo8ciPCylKopIiCyUs NoYXJzZXQwXGZuaWwgQXJp RZo2jX7YClxrGKG2XNZYQg pnSPMzSK7Hm7bmAVJylJOt MFR9QXzkuHDtSWUvEZMwXK y0OCZoQRmtqHSoVR7scYyy ZbecwQijx6OhbWWdJXdxXU HcMIYtIGedIHPtQJ2TEfIp KPV4PkL2IwieYXw5DDg2VI 8COsIfJXWfJUrrRBG8XbVg EGo6EOvnKW2BZCU0PqQrVk K0RZZ8PEH3LQTsPWSgKzYt XGYgQXJpYWwgXFxmbCBcXG 8hlRjnkPUqnfRRFtVNB3Og BSG1BkDaXZ6moYFzLY5WQW BiwJEVHIH2AY0pZEMIHwpr dVSuBJMglRriDPgsbU1qYD 0FLTb6rmLlCGHaHsOcBsQj ASb3AZAtMa70WCLaORIbwK 8uXIfzf5AzVrk2bJK9XDGg GBAchuOoYPJnM3s4m7FrmJ 6bDN6MCZDzHYkxVHWbwDHJ ZUH0AE3yZWrodRAwabicBI JeR8VjQ0HlrgIxyZAuXMFm ozNkn3kvBJB7CYJzsJVvsW FvLvXrOdfaKLW9LAowp7jq CAZ2CIWbbWGqnFJrUQizYu HdVcusHUDiX4HhJ2CpgtC2 DQp9 MICROSCOPIC DESCRIPTION n4spwRGpTQDfpER0DsOpXF (test code = 3371) Hcp8irc0PgmWFpdHKtAMwy aGFuugEwqb51zGT8lD00OY 9yQMJdFdC0NXZiddV8Mwz3 IRRkEQIvyXNiS228v7zqr9 pdxkEvqEL8iCxjVPKyzjoc NtH3JQpwWRXxxslrYBw5GU dtODOqcNU1GZAdpTDpB3Zm GYYoGI7vudc9EKB0YNzgFC QlAeW8ZSXqnMEhLMBsuNqq ZUcmb628FUG6MsDjXWXqnu MhjMknpX1yRaEuSCXSlNXx yCXxlT5chI2cvWIaooCljf DzurWhBPAro64sX7y3USWj MAHzKVerNK22rIFcGKXiJI Bhcn0= STATEMENT OF ADEQUACY Satisfactory (test code = 2757) Gross assessment was [facility] performed at (test code [facility], = 2777) Department of Pathology, [address] [place] [address], Technical component was [facility] performed at ([facility], = 2778) Department of Pathology, [address] [place] [address], Professional component [facility] was performed at ([facility], code = 2779) Department of Pathology, [address] [place] [address], [facility]:44[facility]01 Test Item Value Reference Range Interpretation Comments Case Report (test code Medical Cytology = 104) Report Case: [id number] Authorizing Provider: Jadyn Fernandez Collected: 08/07/2021 04:31 PM MD Rickie Ordering Location: [address] Received: 08/08/2021 08:12 AM Service Pathologist: Althea Mcnamara MD Specimen: CSF, tube 4 DIAGNOSTIC CATEGORY NEGATIVE FOR (test code = 2754) MALIGNANCY DIAGNOSIS (test code = o3sxiHNoMDFut0wsOBAxlF 3220) FuZzEwMzNcZnRuYmpcdWMx IHtccnRmMVxlcGljOTYwMl onuzOyJLQpdVNmJ9Ccusow PPkfMH0eNZ1ghWeraNIowG JuMLUnFbNne0jxe106lMAh e8jkQJWHbvbfcRu2kVswX1 1wo6C2TpuiV16ceZTaRCJ8 ACTtYLJutUBzOBCuGGH5PZ QxxIAhK8xgGGPwVG2sipjd YXurWIqmDJQcxTG2RVYmfX XzF8LkBDHzVHkxYABvcyx7 UiNwHl4cpBBlzYeqUGymMA MlOORhTTnnZFSyPtOkC1PT EGFXE2NCWO2ZIVFEJCVRQO ioJ4gWV0vZY7vvbXBnOSZg WaAxOgSCQFZXGhNgKn2OYB 1PHEsNDoEBK9rkmMQwfXha dxTyXUtgs5YcGYoqNBXiMU 7nsLvhAMIuOX4aNEHxY2zj lH9bgcm1XdZpHGRgDnQ3GR WxtmG0Xvh1PPZrILjnp5wr e0VzXPRjKUu6mGnlDaQnND Utb9iwesOcOhMeLQBiPFPz CFMfjBIjM818l2ftr4sdtx AbuDR3RLOuCGV3VHvtbwSq elU6LMlbjNMjZvH4XTjoqx FkMUaejcIcnoMwPuk1JVWg U424FVV9cZmzl8lnWYP7WA CeIMGnPxJwMp8zsNCfY831 BNUlLGEHINGvvSd2CBPbad PcniBfgZTCq253N187g6fs RDDuusSmvGqIdnmrx6koI1 19XHBhcGVydzEyMjQwXHBh hWVmuNU2LNCxAU7rcjwzZJ wuFGtlCVEtlfZ6NYBbuAXv S5OmJNRmBT2gnnooXHH1CN mdJNGqHRI8NuAkZABmx2Pu pzr5KiKagr8lcx08HSD7l2 YdiClfZUU5IKK3NxRtFn0r hUEdMYNdOT5xHyEqsRAmTO Wsom70uIolDNpmDUT7MRMp zyVkd8Cup5rgVhBwifHdX1 vjB9DfESAiKKJtYEJjCkOv bfJax3Epz1QlsURrdWw9f6 dkREOrEDFirLdmt1inQAS6 JSFgcCSeH4fdsQ6mMOQnFP 2prrryt7sqCUqmRZwjSGYy gQF1swU9CVSfwQNmR3DnuK 3wXWGdOGyaXGVlzct2PcTx Yt1kxOEoyIunGIazOhujNH dlXHBnbmNvbnRccGduZGVj XHBsYWluXHBsYWluXGYwXG ZzMjRccWxcbGFuZzEwMzNc aGljaFxmMVxkYmNoXGYxXG eaI3zfFbCtIjIeTbf4GLWe zUQmOHJqRel3KWTraYVlKG LUoWsimN4cNFWfqPkwnX3d zZA8YSCptaXvqLENgT7gDX YQsB0hYtM6DYJbNnn6PKT3 UtIBFnHrOUx5RP20KaKiRR Bhcn19 CPT Code(s) (test code y2yudNDeFAJhkLH5JrHgFG = 3357) Dbc7ohb2VeqCJlzLMmIOsn rXKkswQstn31sWW0wP64LS 2zWSShJaC9PGVqeiS9Igr3 ANSgRKYjiIDjQ660n9gov8 vzzsGlaIM6bIzxRBGodaxq FeT5DDtaVEOuomszPUc5CN otRSVhcKW5RKFpxDGtY4Oz AKLnQX5ikuy5YFH9XTouKA PlSpA9MXSdkMCpGAVpuSch OXykk761PLV8BaEbPJLtxf BmyDxwgJ6jQpXmSVG0KVFa OFxwYXJ9 CLINICAL DATA (test x6zetCVzZRImxIR1ZdRzPD code = 3353) Nnu4gyg4InaGRalVUgNQoo hWGzqqYgqg46hYM5iC34MZ 1uLEGsMrG8QINxrfD0Ylg6 DZObXBXxqCEwZ211w7fih8 pdvmMivWN7tUomMIUfyujj OtR3FUebDTDhmgdjOIq5WR lkANQlhTD4CFFwfOWbM3Cc VMSbPT8isha3EHI6WEdxMU HuVqF3JPAdwEPfVZJwdMty XHave114PLW3IoRaXZThoj UnhRpwoU4vCoDsRKOpzjlj ciBoeCBvZiBDVkEsIGEgZm liIHMvcCBhYmxhdGlvbiBu o4Qso15iTNGtYWrINrysXO jBETOszcGzvaVfXY39ILTd DZcex3OaakTcCxQ3mM3mNc XwoGo2CYNNRfH2aF4qvTNd p6GqlVSnm1z6qEA9d1CtRR 5pbmcgQkxFIHdlYWtuZXNz LHSkl9XmyFNuHAvwLFEgAO Aur8BjOcfluiefWTvmgmPw LlxwYXJ9 SPECIMEN SOURCE (test f5nsxWCqYVUrgNI9AtXyER code = 3377) Vvt7jyq0SwbWLfyLAnOQqg fHFkdaTlwi30fEI4vW33FH 9rZHAlYeT2BPAurlO5Mrd1 LYHmTLXntIGxC696w7fsa6 hdgsMqjHL8gLicGQDbnfnl JfO6GBzpQGMlbxasKIn1EI guVETulIU2INTylFOtD1Sk IJOrZG1jywo8JDM7NExbFC QkJpK6MEAyzLEfYXZodRey JNysj949OEV6BkWgKBBejy ZriFyvaG6lUrBcDIQCC7Cx cGFyfQ== GROSS DESCRIPTION (test g1wneVVtWAKvoRMAASPxF2 code = [id number]) hxzxDmLAZceVSxI3Lvyxdf CDmqRV6sOS8wxUyckKBlfP FhYC3HFSPyFyNpQNIkyWSc cyMuFwIgDDXplMOefOK3DD TkHN4nyikcNXzsTXxfWNWb kbL3FJAvxZCaC7KeTCTzXU 6ivdosKKD2UGkwtJ6jqpFS GyitXn0poAEgjVpoMoWdIy NoYXJzZXQwXGZuaWwgQXJp TCq9eQ4JSlicKWP5BAPKNn kgQYChPB5Ra0fzGOCyvHDs FLC3PUcdbFRtSOUiQEStNU c4RRIsOKiopHQdSZ1riImv CdbejGgni2PbnHCeKIxvXK NdTJDlRCbdSHXsQY1YOfIt OZS2NoV2GqcoUBa8SJe3EF 5EBgZyKKFgBCmkQKJ4NvWn VAe8JBocZG9FIAT8GwRwFc H4NKR6RRJ9FJTdXNSkFlHw XGYgQXJpYWwgXFxmbCBcXG 8vmKzvzBMyvcWWNgXMG5Fs RSH6TfExUL1vcDBpJS6WOK LyfYOYOBX2GR8qKAEELtom wJNyKDFqfIzaWQcehN7uLE 9HLNg6jtWoKAEtSrHrYjDv HRu8SMXzBl89CIMdNGIkwN 3wPXvde9MhFsj5oWJ1GLLp FTScowZdRJThW9c3n6CobF 9mSS1FCWCbYOnjIBJpkZYR WES1WM5uWTcakHJglfkvYV XnL7BbP4MuvrUnxRVwOUKv zmGtb8rtJFT0DVDijJSoeN PwOaRjDoauMAM3YZqfj4eq IAX6RVLpaSHhbSRnZYvmTw UdAtgaSZLaU1BsZ5VpotZ2 DQp9 MICROSCOPIC DESCRIPTION j0npgMXtALCfrDZ4HiIfSK (test code = 3371) Urc5vgg1QowGBnvEOqYGkv uEDpbnUpep82uBM4vJ21DU 8aNAFyFgR8ZMXlgiK4Klh7 VJFwGNUvtMVjZ214s0heb6 caufRglUC2uWieXISkhble QpV7SXztIUHhixzsOUc2EM oaCSOpiXD1IJVhcJSuN9Sw NXMbCH5cyem4DXI6OQeeRM LnNdY6JKBtmZNcYIHlkXbf UKthm232MFL3IbAoHKQyxp ErhLkrlL7xXlXsLGNFrEIv bQHnmR6zyQ5ufEGfiqHclq UhzeWuPVOck73rQ4a0POIr SPDtJMmgCP94rZHfRULnAZ Bhcn0= STATEMENT OF ADEQUACY Satisfactory (test code = 2757) Gross assessment was [facility] performed at (test code [facility], = 2770) Department of Pathology, [address] [place] [address], [place] [address], Technical component was [facility] performed at (test code [facility], = 0404) Department of Pathology, [address] [place] [address], Professional component [facility] was performed at ([facility], code = 2779) Department of Pathology, [address] [place] [address], [facility] 14:44:01Medical Cytology Report Case: [id number] Authorizing Provider: Jadyn Fernandez Collected: 08/07/2021 04:31 PM MD Rikcie Ordering Location: [address] Received: 08/08/2021 08:12 AM Service Pathologist: Althea Mcnamara MD Specimen: CSF, tube 4 NEGATIVE FOR MALIGNANCY CEREBROSPINAL FLUID, CYTOLOGY -NEGATIVE FOR MALIGNANCY Signing Pathologist Direct Phone Line: [phone] signed by Althea Mcnamara MD on 08/08/2021 at 2:43 [id number] hx of CVA, a fib s/p ablation not on AC, HTN, HLD, and 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 CSF, tube 4.Received 6.5 cc color less fluid; prepared 2 cytospins Small lymphocytes and rare monocytes are identified.[facility], Department of Pathology, [address] [place], [place] [id number], [facility], Department of Pathology, [address] [place] [address], [facility], Department of Pathology, [address] [place] [address], [id number] 13:05:05 Test Item Value Reference Range Interpretation Comments RPR SCREEN (BEAKER) (test code = Nonreactive Nonreactive 420) FLOW CYTOMETRY [id number] 12:24:32 Test Item Value Reference Range Interpretation Comments FLOW CYTOMETRY RESULT See Separate Report POINTER (ALICIA) (test code = 2758) FLOW CYTOMETRY AP CASE # [id number] (ALICIA) (test code = 2759) LACTIC ACID, [id number] 11:19:59 Test Item Value Reference Range Interpretation Comments LACTATE BLOOD VENOUS 1.21 mmol/L 0.50-2.20 Specime n slightly (2) (ALICIA) (test hemolyzed code = 2872) [employer] ID - DBFLOW [id number] 10:37:45Flow Cytometry Report Case: [id number] Authorizing Provider: Jadyn Fernandez Collected: 08/07/2021 04:34 PM MD Rickie Ordering Location: [address] Received: 08/07/2021 09:32 PM Service Pathologist: Hayde Harper MD Specimen: Other CEREBROSPINAL FLUID, FLOW CYTOMETRY:-LIMITED BY PAUCICELLULARITY AND REDUCED VIABILITY -NO ABERRANT T CELL POPULATION-VIRTUALLY ABSENT B CELLS These results should be correlated with the morphologic and other features for full interpretation. [id number] CD8, surface-kappa, CD56, surface-lambda, CD5, CD19, CD10, CD3, CD20, CD4, MS22Xvgoclxo Viability: 71.1% Number ofEvents Acquired: 210 The following populations are identified:Lymphocytes: Bright CD45+ lymphocytes c omprise 83.8% of total cells. T cells show a CD4:CD8 ratio of 5.0 and normal expression of the eid Tcell antigens CD3 and CD5. Less than 1% CD19+CD20+ B lymphocytes are noted. Myeloid/monocytic populations: Precise quantitation of granulocytes and monocytes as identified by CD45 and light scatter neil acteristics is difficult due to paucicellularity and nonspecific staining. The remaining events analyzed represent nonviable cells, non-hematolymphoid cells, and debris.These tests were developed and their performance characteristics determined by [facility]. They have not been cleared or approved by the U.S. Food and Drug Administration. The FDA has determined that such clearance or approval is not necessary. It should not be regarded as investigational or for research. This laboratory is certified under the Clinical Laboratory Improvement Amendments of 1988 ("CLIA") as qualified to perform high- complexity clinical testing.[facility], Department of Pathology, [address] [place] [address], [facility], Department of Pathology, [address] [place] [address], HXDPASZ DEHYDROGENASE (LDH)2021-08-08 10:30:16 Test Item Value Reference Range Interpretation Comments LACTATE DEHYDROGENASE (BEAKER) (test 309 U/L 125-220 H code = 635) [employer] ID - DBBASIC METABOLIC [id number] 07:37:21 Test Item Value Reference Range Interpretation Comments SODIUM (BEAKER) 134 meq/L 136-145 L (test code = 381) POTASSIUM (BEAKER) 3.9 meq/L 3.5-5.1 (test code = 379) CHLORIDE (BEAKER) 101 meq/L 98-107 (test code = 382) CO2 (BEAKER) (test 21 meq/L 22-29 L code = 355) BLOOD UREA NITROGEN 8 mg/dL 7-21 (BEAKER) (test code = 354) CREATININE (BEAKER) 0.81 mg/dL 0.57-1.25 (test code = 358) GLUCOSE RANDOM 120 mg/dL 70-105 H (BEAKER) (test code = 652) CALCIUM (BEAKER) 8.7 mg/dL 8.4-10.2 (test code = 697) EGFR (BEAKER) (test 98 mL/min/1.73 ESTIMA PRADEEP GFR IS code = 1092) sq m NOT ACCURATE CREATININE CLEARANCE IN PREDICTING GLOMERULAR FILTRATION RATE . ESTIMATED GFR I S NOT APPLICABLE FOR DIALYSIS PATIEN TS. [employer] ID - DBCBC W/PLT COUNT & AUTO [id number] 04:54:55 Test Item Value Reference Range Interpretation Comments WHITE BLOOD CELL COUNT (BEAKER) 11.7 K/ L 3.5-10.5 H (test code = 775) RED BLOOD CELL COUNT (BEAKER) 4.94 M/ L 4.63-6.08 (test code = 761) HEMOGLOBIN (BEAKER) (test code = 12.8 GM/DL 13.7-17.5 L 410) HEMATOCRIT (BEAKER) (test code = 40.2 % 40.1-51.0 411) MEAN CORPUSCULAR VOLUME (BEAKER) 81.4 fL 79.0-92.2 (test code = 753) MEAN CORPUSCULAR HEMOGLOBIN 25.9 pg 25.7-32.2 (BEAKER) (test code = 751) MEAN CORPUSCULAR HEMOGLOBIN CONC 31.8 GM/DL 32.3-36.5 L (BEAKER) (test code = 752) RED CELL DISTRIBUTION WIDTH 19.7 % 11.6-14.4 H (BEAKER) (test code = 412) PLATELET COUNT (BEAKER) (test 321 K/CU MM 150-450 code = 756) MEAN PLATELET VOLUME (BEAKER) 9.9 fL 9.4-12.4 (test code = 754) NUCLEATED RED BLOOD CELLS 0 /100 WBC 0-0 (BEAKER) (test code = 413) NEUTROPHILS RELATIVE PERCENT 77 % (BEAKER) (test code = 429) LYMPHOCYTES RELATIVE PERCENT 11 % (BEAKER) (test code = 430) MONOCYTES RELATIVE PERCENT 7 % (BEAKER) (test code = 431) EOSINOPHILS RELATIVE PERCENT 2 % (BEAKER) (test code = 432) BASOPHILS RELATIVE PERCENT 1 % (BEAKER) (test code = 437) NEUTROPHILS ABSOLUTE COUNT 9.02 K/ L 1.78-5.38 H (BEAKER) (test code = 670) LYMPHOCYTES ABSOLUTE COUNT 1.34 K/ L 1.32-3.57 (BEAKER) (test code = 414) MONOCYTES ABSOLUTE COUNT (BEAKER) 0.82 K/ L 0.30-0.82 (test code = 415) EOSINOPHILS ABSOLUTE COUNT 0.22 K/ L 0.04-0.54 (BEAKER) (test code = 416) BASOPHILS ABSOLUTE COUNT (BEAKER) 0.10 K/ L 0.01-0.08 H (test code = 417) IMMATURE GRANULOCYTES-RELATIVE 2 % 0-1 H PERCENT (BEAKER) (test code = 2801) CSF cell count with [id number] 18:50:00 Test Item Value Reference Range Interpretation Comments Appearance (test code = Clear Clear 26362-5) Color (test code = Colorless Colorless 56427-9) RBCs (test code = 1 See_Comment [Automate d message] 792-2) The system [employer] generated this result transmit pradeep reference range : 0 - 5 /cu mm. The reference range was not used to interpret this result as normal/abnormal . WBCs (test code = 1 See_Comment [Automate d message] 806-0) The system [employer] generated this result transmit pradeep reference range : <=5 /cu mm. The reference range was not used to interpret this result as normal/abnormal . RBCs Fresh? (test code 100% Fresh = 61163-2) # of Cells Diff'd (test 10 code = 65496-3) % Neutros (test code = 0 % 0-5 41300-5) % Lymphs (test code = 90 % 40-80 H 72913-4) % Monos (test code = 10 % 15-45 L 439) % Eos (test code = 360) 0 % See_Comment [Au tomated message] The system [employer] generated this result transmit pradeep reference range : <=0. The refere nce range was not u sed to interpret th is result as normal/abnormal . % Baso (test code = 0 % See_Comment [Automa pradeep message] 440) The system [employer] generated this result transmit pradeep reference range : <=0. The refere nce range was not u sed to interpret th is result as normal/abnormal . Tube Number (test code 2 = 2677) Lab Interpretation Abnormal (test code = 76824-2) [facility] with [id number] 18:50:00 Test Item Value Reference Range Interpretation Comments Appearance (test code = Clear Clear 50992-2) Color (test code = Colorless Colorless 73784-0) RBCs (test code = 1 See_Comment [Automate d message] 792-2) The system [employer] generated this result transmit pradeep reference range : 0 - 5 /cu mm. The reference range was not used to interpret this result as normal/abnormal . WBCs (test code = 1 See_Comment [Automate d message] 806-0) The system [employer] generated this result transmit pradeep reference range : <=5 /cu mm. The reference range was not used to interpret this result as normal/abnormal . RBCs Fresh? (test code 100% Fresh = 89976-0) # of Cells Diff'd (test 10 code = 17680-9) % Neutros (test code = 0 % 0-5 15758-7) % Lymphs (test code = 90 % 40-80 H 52823-9) % Monos (test code = 10 % 15-45 L 439) % Eos (test code = 360) 0 % See_Comment [Au tomated message] The system [employer] generated this result transmit pradeep reference range : <=0. The refere nce range was not u sed to interpret th is result as normal/abnormal . % Baso (test code = 0 % See_Comment [Automa pradeep message] 440) The system [employer] generated this result transmit pradeep reference range : <=0. The refere nce range was not u sed to interpret th is result as normal/abnormal . Tube Number (test code 2 = 2677) Lab Interpretation Abnormal (test code = 65257-8) [facility] [id number] 18:50:00 Test Item Value Reference Range Interpretation Comments APPEARANCE CSF Clear Clear (BEAKER) (test code = 407) COLOR CSF (BEAKER) Colorless Colorless (test code = 408) RBC CSF (BEAKER) (test 1 /cu mm 0-5 code = 409) WBC CSF (BEAKER) (test 1 /cu mm See_Comment [Aut omated message] code = 1020) The system [employer] generated this result transmitted ref erence range: <=5. The reference range was not used to int erpret this result as normal/abnormal . RBCS FRESH (BEAKER) 100% Fresh (test code = 1444) NUMBER OF CELLS DIFF'D 10 (BEAKER) (test code = 1591) NEUTROPHIL, CSF 0 % 0-5 (BEAKER) (test code = 324) LYMPHS CSF (BEAKER) 90 % 40-80 H (test code = 438) MONO/MACROPHAGE CSF 10 % 15-45 L (BEAKER) (test code = 439) EOSINOPHILS CSF 0 % See_Comment [Automated message] (BEAKER) (test code = The sy stem which 360) generated this result transmitted ref erence range: <=0. The reference range was not used to int erpret this result as normal/abnormal . BASO CSF (BEAKER) 0 % See_Comment [Automate d message] (test code = 440) The system which generated this result transmitted ref erence range: <=0. The reference range was not used to int erpret this result as normal/abnormal . TUBE NUMBER CSF 2 (BEAKER) (test code = 2678) Protein, [id number] 18:49:03 Test Item Value Reference Range Interpretation Comments Protein, CSF (test code = 71 mg/dL 15-45 H 2880-3) FOREST (test code = FOREST) [employer] ID - DB Lab Interpretation (test Abnormal code = 81347-9) [facility], [id number] 18:49:03 Test Item Value Reference Range Interpretation Comments Protein, CSF (test code = 71 mg/dL 15-45 H 2880-3) FOREST (test code = FOREST) [employer] ID - DB Lab Interpretation (test Abnormal code = 76935-4) [facility], [id number] 18:49:03 Test Item Value Reference Range Interpretation Comments PROTEIN CSF (BEAKER) (test code = 71 mg/dL 15-45 H 378) [employer] ID - DBGlucose, [id number] 18:49:02 Test Item Value Reference Range Interpretation Comments Glucose, CSF (test code = 71 mg/dL 40-70 H 2342-4) FOREST (test code = FOREST) [employer] ID - DB Lab Interpretation (test Abnormal code = 22090-3) [facility], [id number] 18:49:02 Test Item Value Reference Range Interpretation Comments Glucose, CSF (test code = 71 mg/dL 40-70 H 2342-4) FOREST (test code = FOREST) [employer] ID - DB Lab Interpretation (test Abnormal code = 61642-2) [facility]UCOSE, [id number] 18:49:02 Test Item Value Reference Range Interpretation Comments GLUCOSE CSF (BEAKER) (test code = 71 mg/dL 40-70 H 406) [employer] ID - DBMENINGITIS/ENCEPHALITIS [id number] 18:33:50 Test Item Value Reference Range Interpretation Comments E COLI K1 (test code = Not detected Not detected 13722-8) HAEMOPHILUS INFLUENZAE Not detected Not detected (test code = 52969-9) LISTERIA MONOCYTOGENES Not detected Not detected (test code = 65088-1) NEISSERIA MENINGITIDIS Not detected Not detected (test code = 70789-0) STREPTOCOCCUS Not detected Not detected AGALACTIAE (test code = 76576-6) STREPTOCOCCUS Not detected Not detected PNEUMONIAE (test code = 64631-1) Cytomegalovirus (CMV) Not detected Not detected (test code = 64390-3) ENTEROVIRUS (test code Not detected Not detected = 74533-0) Human herpesvirus 6 Not detected Not detected (HHV-6) (test code = 15624-4) Herpes simplex virus Not detected Not detected 1(HSV-1) (test code = 42515-4) HERPES SIMPLEX VIRUS Not detected Not detected 2(HSV-2) (test code = 18766-7) Human parechovirus Not detected Not detected (test code = 22759-1) Varicella-zoster virus Not detected Not detected (VZV) (test code = 26495-3) Cryptococcus Not detected Not detected neoformans/gattii (test code = 26202-3) FOREST (test code = FOREST) The performance of this test has not been specifically evaluated for CSF specimens from immunocompromised individuals. The effect of antibiotic treatment on test performance has not been evaluated. Other viruses and bacteria not targeted by this PCR panel cannot be excluded; therefore, clinical correlation and follow up of serology, culture results, and other molecular studies may be required. This sample was tested at the [facility] using the MDdatacorArray Meningitis Encephalitis Panel. It is FDA cleared and has been verified and approved by the [facility] for clinical use. This laboratory is CLIA-certified and [employer] (CAP)-accredited to perform high complexity testing. Lab Interpretation Normal (test code = 13501-9) [facility] HospitalMENINGITIS/ENCEPHALITIS [id number] 18:33:50 Test Item Value Reference Range Interpretation Comments E COLI K1 (test code = Not detected Not detected 05180-0) HAEMOPHILUS INFLUENZAE Not detected Not detected (test code = 85263-5) LISTERIA MONOCYTOGENES Not detected Not detected (test code = 94989-9) NEISSERIA MENINGITIDIS Not detected Not detected (test code = 75636-0) STREPTOCOCCUS Not detected Not detected AGALACTIAE (test code = 77419-8) STREPTOCOCCUS Not detected Not detected PNEUMONIAE (test code = 85840-8) Cytomegalovirus (CMV) Not detected Not detected (test code = 93650-3) ENTEROVIRUS (test code Not detected Not detected = 21916-7) Human herpesvirus 6 Not detected Not detected (HHV-6) (test code = 03321-8) Herpes simplex virus Not detected Not detected 1(HSV-1) (test code = 36984-9) HERPES SIMPLEX VIRUS Not detected Not detected 2(HSV-2) (test code = 60490-4) Human parechovirus Not detected Not detected (test code = 31467-3) Varicella-zoster virus Not detected Not detected (VZV) (test code = 48092-2) Cryptococcus Not detected Not detected neoformans/gattii (test code = 04838-4) FOREST (test code = FOREST) The performance of this test has not been specifically evaluated for CSF specimens from immunocompromised individuals. The effect of antibiotic treatment on test performance has not been evaluated. Other viruses and bacteria not targeted by this PCR panel cannot be excluded; therefore, clinical correlation and follow up of serology, culture results, and other molecular studies may be required. This sample was tested at the [facility] Molecular Diagnostics Laboratory using the MDdatacorArray Meningitis Encephalitis Panel. It is FDA cleared and has been verified and approved by the [facility] for clinical use. This laboratory is CLIA-certified and [employer] (CAP)-accredited to perform high complexity testing. Lab Interpretation Normal (test code = 77036-8) [facility] HospitalMENINGITIS/ENCEPHALITIS [id number] 18:33:50 Test Item Value Reference Range Interpretation Comments ESCHERICHIA COLI K1 (test code = Not detected Not detected 20151203) HAEMOPHILUS INFLUENZAE (test Not detected Not detected code = 2760092) LISTERIA MONOCYTOGENES (test Not detected Not detected code = 6946223) NEISSERIA MENINGITIDIS (test Not detected Not detected code = 0474572) STREPTOCOCCUS AGALACTIAE (test Not detected Not detected code = 1939550) STREPTOCOCCUS PNEUMONIAE (test Not detected Not detected code = 9142819) CYTOMEGALOVIRUS (CMV) (test code Not detected Not detected = 2365643) ENTEROVIRUS (test code = Not detected Not detected 5581189) HUMAN HERPESVIRUS 6 (HHV-6) Not detected Not detected (test code = 2172264) HERPES SIMPLEX VIRUS 1(HSV-1) Not detected Not detected (test code = 7879507) HERPES SIMPLEX VIRUS 2(HSV-2) Not detected Not detected (test code = 3767438) HUMAN PARECHOVIRUS (test code = Not detected Not detected 0829542) VARICELLA-ZOSTER VIRUS (VZV) Not detected Not detected (test code = 1900883) CRYPTOCOCCUS NEOFORMANS/GATTII Not detected Not detected (test code = 8596631) The performance of this test has not been specifically evaluated for CSF specimens from immunocompromised individuals. The effect of antibiotic treatment on test performance has not been evaluated. Other viruses and bacteria not targeted by this PCR panel cannot be excluded; therefore, clinical correlation and follow up of serology, culture results, and other molecular studies may be required. This sample was tested at the [facility] Molecular Diagnostics Laboratory using the Fant[employer] FilmArray MeningitisEncephalitis Panel. It is FDA cleared and has been verified and approved by the [facility] Molecular Diagnostics [facility] for clinical use. This laboratory is CLIA-certified and [employer] [place] g[employer] (CAP)-accredited to perform high complexity testing.Sil ink prep 2021-08-07 18:12:17 Test Item Value Reference Range Interpretation Comments Sil Ink (test code = No encapsulated No encapsulated 638-7) yeast seen yeast seen Lab Interpretation Normal (test code = 09665-2) [facility] HospitalIndia ink [id number] 18:12:17 Test Item Value Reference Range Interpretation Comments Sil Ink (test code = No encapsulated No encapsulated 638-7) yeast seen yeast seen Lab Interpretation Normal (test code = 85787-1) [facility] HospitalINDIA INK [id number] 18:12:17 Test Item Value Reference Range Interpretation Comments SIL INK No encapsulated yeast No encapsulated yeast (BEAKER) (test seen seen code = 1612) BASIC METABOLIC [id number] 06:10:41 Test Item Value Reference Range Interpretation Comments SODIUM (BEAKER) 138 meq/L 136-145 (test code = 381) POTASSIUM (BEAKER) 3.7 meq/L 3.5-5.1 (test code = 379) CHLORIDE (BEAKER) 104 meq/L 98-107 (test code = 382) CO2 (BEAKER) (test 22 meq/L 22-29 code = 355) BLOOD UREA NITROGEN 7 mg/dL 7-21 (BEAKER) (test code = 354) CREATININE (BEAKER) 0.80 mg/dL 0.57-1.25 (test code = 358) GLUCOSE RANDOM 111 mg/dL 70-105 H (BEAKER) (test code = 652) CALCIUM (BEAKER) 9.3 mg/dL 8.4-10.2 (test code = 697) EGFR (BEAKER) (test 99 mL/min/1.73 ESTIMA PRADEEP GFR IS code = 1092) sq m NOT ACCURATE CREATININE CLEARANCE IN PREDICTING GLOMERULAR FILTRATION RATE . ESTIMATED GFR I S NOT APPLICABLE FOR DIALYSIS PATIEN TS. [employer] ID - PIAYA [id number] 05:57:14 Test Item Value Reference Range Interpretation Comments PROTIME (BEAKER) (test 13.5 seconds 11.9-14.2 code = 759) INR (BEAKER) (test 1.05 See_Comment [Automat ed code = 370) message] The sy stem which generated this result transmitted reference range : <=5.90. The reference range was not used to interpret this result as normal/abnormal . PARTIAL THROMBOPLASTIN 32.9 seconds 22.5-36.0 TIME (BEAKER) (test code = 760) RECOMMENDED COUMADIN/WARFARIN INR THERAPY RANGESSTANDARD DOSE: 2.0 - 3.0 Includes: PROPHYLAXIS for venous thrombosis, systemic embolization; TREATMENT for venous thrombosis and/or pulmonary embolus.HIGH RISK: Target INR is 2.5-3.5 for patients with mechanical heart valves.CBC W/PLT COUNT & AUTO [id number] 05:12:53 Test Item Value Reference Range Interpretation Comments WHITE BLOOD CELL COUNT (BEAKER) 9.7 K/ L 3.5-10.5 (test code = 775) RED BLOOD CELL COUNT (BEAKER) 4.85 M/ L 4.63-6.08 (test code = 761) HEMOGLOBIN (BEAKER) (test code = 12.6 GM/DL 13.7-17.5 L 410) HEMATOCRIT (BEAKER) (test code = 39.3 % 40.1-51.0 L 411) MEAN CORPUSCULAR VOLUME (BEAKER) 81.0 fL 79.0-92.2 (test code = 753) MEAN CORPUSCULAR HEMOGLOBIN 26.0 pg 25.7-32.2 (BEAKER) (test code = 751) MEAN CORPUSCULAR HEMOGLOBIN CONC 32.1 GM/DL 32.3-36.5 L (BEAKER) (test code = 752) RED CELL DISTRIBUTION WIDTH 19.3 % 11.6-14.4 H (BEAKER) (test code = 412) PLATELET COUNT (BEAKER) (test 328 K/CU MM 150-450 code = 756) MEAN PLATELET VOLUME (BEAKER) 9.8 fL 9.4-12.4 (test code = 754) NUCLEATED RED BLOOD CELLS 0 /100 WBC 0-0 (BEAKER) (test code = 413) NEUTROPHILS RELATIVE PERCENT 66 % (BEAKER) (test code = 429) LYMPHOCYTES RELATIVE PERCENT 19 % (BEAKER) (test code = 430) MONOCYTES RELATIVE PERCENT 9 % (BEAKER) (test code = 431) EOSINOPHILS RELATIVE PERCENT 2 % (BEAKER) (test code = 432) BASOPHILS RELATIVE PERCENT 1 % (BEAKER) (test code = 437) NEUTROPHILS ABSOLUTE COUNT 6.40 K/ L 1.78-5.38 H (BEAKER) (test code = 670) LYMPHOCYTES ABSOLUTE COUNT 1.85 K/ L 1.32-3.57 (BEAKER) (test code = 414) MONOCYTES ABSOLUTE COUNT (BEAKER) 0.87 K/ L 0.30-0.82 H (test code = 415) EOSINOPHILS ABSOLUTE COUNT 0.22 K/ L 0.04-0.54 (BEAKER) (test code = 416) BASOPHILS ABSOLUTE COUNT (BEAKER) 0.14 K/ L 0.01-0.08 H (test code = 417) IMMATURE GRANULOCYTES-RELATIVE 2 % 0-1 H PERCENT (BEAKER) (test code = 2801) MR, SPINE, CERVICAL, WITH [id number] 13:31:00 [facility] : 1965 Sex: MFINAL REPORT MR, BRAIN WITH IV CONTRAST, MR, SPINE, CERVICAL, WITH CONTRAST INDICATION: ms Technique: Postcontrast T1-weighted images of the brain and cervical spine (obtained at alater date as patient has an implant which only allows for fixed time of scanning, thus, patient hadto be brought back to complete the exam). COMPARISON: None FINDINGS:There is enhancement corresponding to regions of masslike flair hyperintensity within the left posterior frontal and anterior parietal subcortical white matter, the right midbrain, rhonda, right middle cerebellar peduncle and right cerebellar hemisphere. Unremarkable postcontrast MRI of the cervical spine. IMPRESSION: Enhancement corresponding to previously described areas of T2/FLAIR hyperintensity within the left posterior frontal and anterior parietal subcortical white matter and the right brain stem. Primary differential considerations would be tumefactive demyelination (given clinical history) and encephalitis. However, serial follow-up following treatment is suggested (following treatment) to exclude neoplasm given unusual distribution. Signed: Chandler St MDReport Verified Date/Time: 08/05/2021 13:31:14 MR, BRAIN WITH IV [id number] 13:31:00 [facility] 1965 Sex: MFINAL REPORT MR, BRAIN WITH IV CONTRAST, MR, SPINE, CERVICAL, WITH CONTRAST INDICATION: ms Technique: Postcontrast T1-weighted images of the brain and cervical spine (obtained at alater date as patient has an implant which only allows for fixed time of scanning, thus, patient hadto be brought back to complete the exam). COMPARISON: None FINDINGS:There is enhancement corresponding to regions of masslike flair hyperintensity within the left posterior frontal and anterior parietal subcortical white matter, the right midbrain, rhonda, right middle cerebellar peduncle and right cerebellar hemisphere. Unremarkable postcontrast MRI of the cervical spine. IMPRESSION: Enhancement corresponding to previously described areas of T2/FLAIR hyperintensity within the left posterior frontal and anterior parietal subcortical white matter and the right brain stem. Primary differential considerations would be tumefactive demyelination (given clinical history) and encephalitis. However, serial follow-up following treatment is suggested (following treatment) to exclude neoplasm given unusual distribution. Signed: Chandler St Verified Date/Time: 08/05/2021 13:31:14 MR, SPINE, THORACIC, [id number] 11:27:00Unlisted Reason for Exam - Click Yes and Enter Reason Below->No [facility] : 1965 Sex: MFINAL REPORT MR, SPINE, THORACIC, WITH \\T\\ WITHOUT CONTRAST INDICATION: Multiple sclerosis, new event TECHNIQUE: Multiplanar, multisequence MR imaging of the thoracic spine was performed with and without intravenous contrast. COMPARISON: None. FINDINGS: Alignment of the thoracic spine is within normal limits. Vertebral body height is maintained.Mild multilevel disc space height lo ss is present. Incidental scattered osseous meningiomas. Otherwise, marrow is within normal limits.Thoracic cord is normal in signal intensityNo acute findings within the paraspinal soft tissues. IMPRESSION: No evidence of demyelinating disease within the thoracic cord. Signed: Chandler St Verified Date/Time: 08/05/2021 11:27:25 MR, SPINE, CERVICAL, WITHOUT [id number] 10:03:00 [facility] : 1965 Sex: MFINAL REPORT MR, SPINE, CERVICAL, WITHOUT CONTRAST INDICATION: ms protocol TECHNIQUE: Multiplanar, multisequence MR imaging of the cervical spine was performed without intravenous contrast. COMPARISON: None. FINDINGS: Alignment of the cervical spine is within normal limits. Vertebral body height is maintained.Mild multilevel disc space height loss is present. Marrow signal intensity is within normal limits for age.Cervical cord is normal in signal intensityNo acute findings within the paraspinal soft tissues. Findings by level:C2/C3: Mild disc osteophyte. Ligamentum flavum thickening. Bilateral facet arthropathy and hypertrophy. No significant canal or foraminal stenosis. C3/C4: Disc osteophyte, asymmetric to the right. Ligamentum flavum thickening. Bilateral facet arthropathy and hypertrophy. Moderate versus severe bilateral foraminal stenosis. No significant spinal canal narrowing. C4/C5: : Disc osteophyte, asymmetric to the right. Ligamentum flavum thickening. Bilateral f acet arthropathy and hypertrophy. Moderate versus severe bilateral foraminal stenosis. Mild versus moderate spinal canal narrowing. C5/C6: Disc osteophyte, asymmetric to the right. Ligamentum flavum thickening. Bilateral facet arthropathy and hypertrophy. Moderate versus severe bilateral foraminal sten osis. Mild versus moderate spinal canal narrowing. C6/C7: Disc osteophyte, asymmetric to the right. Ligamentum flavum thickening. Bilateral facet arthropathy and hypertrophy. Severe bilateral foraminalstenosis. Mild versus moderate spinal canal narrowing. C7/T1: Posterior disc osteophyte. Ligamentum f lavum thickening. Bilateral facet arthropathy and hypertrophy. No significant spinal canal narrowing. Severe bilateral foraminal stenosis, left greater than right. IMPRESSION: 1.Moderate canal stenosisat C4-C5, C5-C6 and C6- C7.2.Multilevel foraminal stenosis as per above.3.There is partial visualization of significant signal abnormality within the rhonda and midbrain, described on prior report of MRI brain. Signed: [address] St MDReport Verified Date/Time: 08/05/2021 10:03:00 Electronically signedby: CHANDLER ST MD on 08/05/2021 10:03 AMMR, BRAIN, WITHOUT [id number] 18:40:00Unlisted Reason for Exam - Click Yes and Enter Reason Below->No [facility] : 1965 Sex: MFINAL REPORT MR, BRAIN, WITHOUT CONTRAST INDICATION: Multiple sclerosis, new event TECHNIQUE: Multiplanar, multisequence MR imaging of the brain was obtained. COMPARISON: None FINDINGS:Subtle DWI hyperintensity seen in the left frontal lobe primarily involving the centrum semiovale and aquino radiata extending to the left body of the corpus callosum with equivocal ADC hypointensity. FLAIR hyperintensity is seen in the right cerebral peduncle, midbrain, dorsal rhonda, right middle cerebellar peduncle, right anterior medulla, and right cerebellar hemisphere. A few scattered T2/FLAIR hyperintense foci within the periventricular and subcortical white matter are nonspecific, however,statistically represent chronic microvascular ischemic changes. No hydrocephalus. Orbits are within normal limits. No obstructive paranasal sinus disease. 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 No associated intracranial hemorrhage.3.Nonspecific FLAIR signal abnormality in the right midbrain and right greater than left rhonda, extending into the right middle cerebellar peduncle, right cerebellar hemisphere, and right anterior medulla. Differential diagnosis includes tumefactive demyelination, glioma, and subacute infarct. Postcontrast imaging can be performed for further evaluation.4.Volume loss suggesting chronic infarct/insult in theright cerebellar hemisphere and middle cerebellar peduncle. Signed: Eros Dye MDReport Verified Date/Time: 08/04/2021 18:40:42 VITAMIN [id number] 12:38:46 Test Item Value Reference Range Interpretation Comments VITAMIN B12 (BEAKER) (test code = 279 pg/mL [phone]) [employer] ID - PIAYA LVITAMIN D, [id number] 09:49:50 Test Item Value Reference Range Interpretation Comments VITAMIN D 25-OH (BEAKER) (test 23.0 ng/mL 6.6-49.9 code = 2764) Effective 12/12/2016: Reference Range ChangeNew: 6.6-49.9 ng/mL Previous: 13.0- 47.8 ng/mLRecommendedVitamin D Target Range: 30.0-40.0 ng/mLOperator ID - BS SARS-COV2/RT-PCR ([facility])2021-08-04 04:13:54 Test Item Value Reference Range Interpretation Comments SARS-COV2/RT-PCR Negative Negative The SARS-Co V-2 target (test code = nucleic acids a re not [id number]) detected in thi s specimen. Negative result s do not preclude SARS-C oV-2 infection and s hould not be used as the gael e basis for patient managem ent decisions. Nega tive results must be combine d with clinical observ ations, patient history , and epidemiological information. A false negativ e result may occur if a spec imen is improperly anabell ected, transported or handled. This SARS CoV-2 test is a rapid, real-time RT-PC R test intended for th e qualitative detection of nu cleic acid from SARS-CoV-2 in a nasopharyngeal swab specimen collected from individuals suspected of CO VID-19 by their healthcar e provider. This test has been authorized by FDA under an EUA for use by authorized laboratories. This test is only authorized for the duration of the declaration that circumstances exist justifying the authorization of emergency use of in vitro diagnostic tests for detection and/or diagnosis of COVID-19 under Section 564(b)(1) of the Federal Food, Drug and Cosmetic Act, 21 U.S.C. 360bbb-3(b)(1), unless the authorization is terminated or revoked sooner. Fact Sheet for Healthcare Providers: https://www.TUNJI m/Documents/Xpert%20Xpress%20SARS%20CoV-2/Fact%20Sheets/302-3802%48LHEN-BTF-7%20 HEALTHCARE%20PROVIDERS%20FACT%20SHEET.pdf Fact Sheet for Healthcare Patients: https://www.Sapho/Documents/Xpert%20Xp ress%20SARS%20CoV-2/Fact%20Sheets/302-3801%98XIZE-UBA-9%20PATIENT%20FACT%20SHEET .[id number] 02:59:47 Test Item Value Reference Range Interpretation Comments MAGNESIUM (BEAKER) (test code = 1.9 mg/dL 1.6-2.6 627) [employer] ID - BSCOMPREHENSIVE METABOLIC [id number] 02:59:46 Test Item Value Reference Range Interpretation Comments TOTAL PROTEIN 6.3 gm/dL 6.0-8.3 (BEAKER) (test code = 770) ALBUMIN (BEAKER) 3.6 g/dL 3.5-5.0 (test code = 1145) ALKALINE PHOSPHATASE 117 U/L 40-150 (BEAKER) (test code = 346) BILIRUBIN TOTAL 0.7 mg/dL 0.2-1.2 (BEAKER) (test code = 377) SODIUM (BEAKER) (test 132 meq/L 136-145 L code = 381) POTASSIUM (BEAKER) 3.7 meq/L 3.5-5.1 (test code = 379) CHLORIDE (BEAKER) 100 meq/L 98-107 (test code = 382) CO2 (BEAKER) (test 21 meq/L 22-29 L code = 355) BLOOD UREA NITROGEN 13 mg/dL 7-21 (BEAKER) (test code = 354) CREATININE (BEAKER) 1.01 mg/dL 0.57-1.25 (test code = 358) GLUCOSE RANDOM 132 mg/dL 70-105 H (BEAKER) (test code = 652) CALCIUM (BEAKER) 8.8 mg/dL 8.4-10.2 (test code = 697) AST (SGOT) (BEAKER) 26 U/L 5-34 (test code = 353) ALT (SGPT) (BEAKER) 56 U/L 6-55 H (test code = 347) EGFR (BEAKER) (test 76 mL/min/1.73 ESTIMA PRADEEP GFR IS code = 1092) sq m NOT ACCURATE CREATININE CLEARANCE IN PREDICTING GLOMERULAR FILTRATION RATE . ESTIMATED GFR I S NOT APPLICABLE FOR DIALYSIS PATIEN TS. [employer] ID - BSHIGH SENSITIVITY TROPONIN [id number] 02:55:43 Test Item Value Reference Range Interpretation Comments HIGH SENSITIVITY < pg/ml See_Comment [Automated message] TROPONIN I (test code = The system which [id number]) generated this result transmitted ref erence range: <=35. Th e reference range was not used to interpr et this result as normal/abnormal . [employer] ID - BSThe CHANNEL DIRECTOR STAT High Sensitivity Troponin-I results should be used in conjunctionwith other diagnostic information such as ECG, clinical observations and information, and patient symptoms to aid in the diagnosis of PA.PT/[id number] 02:49:00 Test Item Value Reference Range Interpretation Comments PROTIME (BEAKER) (test 14.0 seconds 11.9-14.2 code = 759) INR (BEAKER) (test 1.09 See_Comment [Automat ed code = 370) message] The sy stem which generated this result transmitted reference range : <=5.90. The reference range was not used to interpret this result as normal/abnormal . PARTIAL THROMBOPLASTIN 23.2 seconds 22.5-36.0 TIME (BEAKER) (test code = 760) RECOMMENDED COUMADIN/WARFARIN INR THERAPY RANGESSTANDARD DOSE: 2.0 - 3.0 Includes: PROPHYLAXIS for venous thrombosis, systemic embolization; TREATMENT for venous thrombosis and/or pulmonary embolus.HIGH RISK: Target INR is 2.5-3.5 for patients with mechanical heart valves.PROTHROMBIN TIME/[id number] 02:48:22 Test Item Value Reference Range Interpretation Comments PROTIME (ALICIA) 14.0 seconds 11.9-14.2 (test code = 759) INR (ALICIA) (test 1.09 See_Comment [Automat ed message] code = 370) The system [employer] generated this result transmitted ref erence range: <=5.90. The reference range was not used to int erpret this result as normal/abnormal . RECOMMENDED COUMADIN/WARFARIN INR THERAPY RANGESSTANDARD DOSE: 2.0 - 3.0 Includes: PROPHYLAXIS for venous thrombosis, systemic embolization; TREATMENT for venous thrombosis and/or pulmonary embolus.HIGH RISK: Target INR is 2.5-3.5 for patients with mechanical heart valves.POCT-GLUCOSE [id number] 02:37:21 Test Item Value Reference Range Interpretation Comments POC-GLUCOSE METER 129 mg/dL 70-110 H : TESTED Michelle Myers [facility] 6720 (ALICIA) (test code [facility], = 1538) 28541: [employer]/Techni sandra ID = [id number] for ISMAEL MORGAN CT, CTANGIO [id number] 02:35:00Unlisted Reason for Exam - Click Yes and Enter Reason Below->No [facility] : 1965 Sex: MFINAL REPORT CT, CAROTID, ANGIO, CT, CEREBRAL PERFUSION ANALYSIS, CT, CTANGIO BRAIN INDICATION: Neuro deficit, acute, stroke suspected COMPARISON: CT head of the same date TECHNIQUE:Rapid acquisition spiral images were obtained between the aortic arch and the cranial vertex duringintravenous contrast infusion to reconstruct axial images and angiographic 3D maximum intensity proje ctions (MIP). 3-D volumetric reformatted images were created at a dedicated workstation. CT perfusion imaging obtained. Stenosis evaluation reported in compliance with NASCET criteria. DOSE REDUCTION: Dose modulation, iterative reconstruction, and/or weight-based adjustment of the mA/kV was utilized to reduce the radiation dose to as low as reasonably achievable. FINDINGS:There is no CT evidence of acute infarct or hemorrhage. There is no hydrocephalus or midline shift. The skull is intact. CTA BRAIN:Please note that CTA is inherently insensitive in evaluating the cavernous and skull base portions of the internal carotid arteries because of adjacent bone and venous opacification. No major branch vessel occlusion or high-grade focal stenosis. There is no evidence of intracranial aneurysm. The major intradural venous sinuses are patent. CTA neck:Aortic arch vessel origins: No occlusion or high-grade stenosis. Carotid arteries: No occlusion or high-grade stenosis. Vertebral arteries: No occlusion or high-grade stenosis. Nondominant left vertebral artery is patent. Dominant right vertebral artery is patent. No fracture or suspicious osseous lesion. Cervical soft tissues are unremarkable. Minimal apical atelectasis. C4-5 severe right and moderate left neural foraminal stenosis, C5-6 mild bilateral neural foraminal stenosis, C6-C7 severe bilateral neural foraminal stenosis. No high- grade osseous central spinal canal stenosis. Poor dentition, right maxillary first molar periapical tooth abscess. CT perfusion utilizing software analytics:Total Hypoperfusion: Using a threshold of Tmax > 6 seconds, total volume of 0 mL.Core Infarct: Using the threshold of CBF less than 30%, total volume of 0 mL.Penumbra: The penumbra volume (mismatch volume) is 0. The mismatch ratio is not applicable. IMPRESSIONCTA of the head and neck is without acute arterial abnormality. Signed: Joe Arechiga MDReport Verified Date/Time: 08/04/2021 02:35:54 CT, CAROTID, [id number] 02:35:00Unlisted Reason for Exam - Click Yes and Enter Reason Below->No [facility] : 1965 Sex: MFINAL REPORT CT, CAROTID, ANGIO, CT, CEREBRAL PERFUSION ANALYSIS, CT, CTANGIO BRAIN INDICATION: Neuro deficit, acute, stroke suspected COMPARISON: CT head of the same date TECHNIQUE:Rapid acquisition spiral images were obtained between the aortic arch and the cranial vertex duringintravenous contrast infusion to reconstruct axial images and angiographic 3D maximum intensity proje ctions (MIP). 3-D volumetric reformatted images were created at a dedicated workstation. CT perfusion imaging obtained. Stenosis evaluation reported in compliance with NASCET criteria. DOSE REDUCTION: Dose modulation, iterative reconstruction, and/or weight-based adjustment of the mA/kV was utilized to reduce the radiation dose to as low as reasonably achievable. FINDINGS:There is no CT evidence of acute infarct or hemorrhage. There is no hydrocephalus or midline shift. The skull is intact. CTA BRAIN:Please note that CTA is inherently insensitive in evaluating the cavernous and skull base portions of the internal carotid arteries because of adjacent bone and venous opacification. No major branch vessel occlusion or high-grade focal stenosis. There is no evidence of intracranial aneurysm. The major intradural venous sinuses are patent. CTA neck:Aortic arch vessel origins: No occlusion or high-grade stenosis. Carotid arteries: No occlusion or high-grade stenosis. Vertebral arteries: No occlusion or high-grade stenosis. Nondominant left vertebral artery is patent. Dominant right vertebral artery is patent. No fracture or suspicious osseous lesion. Cervical soft tissues are unremarkable. Minimal apical atelectasis. C4-5 severe right and moderate left neural foraminal stenosis, C5-6 mild bilateral neural foraminal stenosis, C6-C7 severe bilateral neural foraminal stenosis. No high- grade osseous central spinal canal stenosis. Poor dentition, right maxillary first molar periapical tooth abscess. CT perfusion utilizing software analytics:Total Hypoperfusion: Using a threshold of Tmax > 6 seconds, total volume of 0 mL.Core Infarct: Using the threshold of CBF less than 30%, total volume of 0 mL.Penumbra: The penumbra volume (mismatch volume) is 0. The mismatch ratio is not applicable. IMPRESSIONCTA of the head and neck is without acute arterial abnormality. Signed: Joe Arechiga MDReport Verified Date/Time: 08/04/2021 02:35:54 CT, CEREBRAL PERFUSION [id number] 02:35:00Reason for exam:->Symptom onset less than 6 hours and NIHSS 6 or greater [facility] : 1965 Sex: MFINAL REPORT CT, CAROTID, ANGIO, CT, CEREBRAL PERFUSION ANALYSIS, CT, CTANGIO BRAIN INDICATION: Neuro deficit, acute, stroke suspected COMPARISON: CT head of the same date TECHNIQUE:Rapid acquisition spiral images were obtained between the aortic arch and the cranial vertex duringintravenous contrast infusion to reconstruct axial images and angiographic 3D maximum intensity proje ctions (MIP). 3-D volumetric reformatted images were created at a dedicated workstation. CT perfusion imaging obtained. Stenosis evaluation reported in compliance with NASCET criteria. DOSE REDUCTION: Dose modulation, iterative reconstruction, and/or weight-based adjustment of the mA/kV was utilized to reduce the radiation dose to as low as reasonably achievable. FINDINGS:There is no CT evidence of acute infarct or hemorrhage. There is no hydrocephalus or midline shift. The skull is intact. CTA BRAIN:Please note that CTA is inherently insensitive in evaluating the cavernous and skull base portions of the internal carotid arteries because of adjacent bone and venous opacification. No major branch vessel occlusion or high-grade focal stenosis. There is no evidence of intracranial aneurysm. The major intradural venous sinuses are patent. CTA neck:Aortic arch vessel origins: No occlusion or high-grade stenosis. Carotid arteries: No occlusion or high-grade stenosis. Vertebral arteries: No occlusion or high-grade stenosis. Nondominant left vertebral artery is patent. Dominant right vertebral artery is patent. No fracture or suspicious osseous lesion. Cervical soft tissues are unremarkable. Minimal apical atelectasis. C4-5 severe right and moderate left neural foraminal stenosis, C5-6 mild bilateral neural foraminal stenosis, C6-C7 severe bilateral neural foraminal stenosis. No high- grade osseous central spinal canal stenosis. Poor dentition, right maxillary first molar periapical tooth abscess. CT perfusion utilizing software analytics:Total Hypoperfusion: Using a threshold of Tmax > 6 seconds, total volume of 0 mL.Core Infarct: Using the threshold of CBF less than 30%, total volume of 0 mL.Penumbra: The penumbra volume (mismatch volume) is 0. The mismatch ratio is not applicable. IMPRESSIONCTA of the head and neck is without acute arterial abnormality. Signed: Joe Arechiga MDReport Verified Date/Time: 08/04/2021 02:35:54 CBC W/PLT COUNT & AUTO [id number] 02:25:00 Test Item Value Reference Range Interpretation Comments WHITE BLOOD CELL COUNT (BEAKER) 10.3 K/ L 3.5-10.5 (test code = 775) RED BLOOD CELL COUNT (BEAKER) 4.84 M/ L 4.63-6.08 (test code = 761) HEMOGLOBIN (BEAKER) (test code = 12.5 GM/DL 13.7-17.5 L 410) HEMATOCRIT (BEAKER) (test code = 39.5 % 40.1-51.0 L 411) MEAN CORPUSCULAR VOLUME (BEAKER) 81.6 fL 79.0-92.2 (test code = 753) MEAN CORPUSCULAR HEMOGLOBIN 25.8 pg 25.7-32.2 (BEAKER) (test code = 751) MEAN CORPUSCULAR HEMOGLOBIN CONC 31.6 GM/DL 32.3-36.5 L (BEAKER) (test code = 752) RED CELL DISTRIBUTION WIDTH 18.5 % 11.6-14.4 H (BEAKER) (test code = 412) PLATELET COUNT (BEAKER) (test 323 K/CU MM 150-450 code = 756) MEAN PLATELET VOLUME (BEAKER) 9.6 fL 9.4-12.4 (test code = 754) NUCLEATED RED BLOOD CELLS 0 /100 WBC 0-0 (BEAKER) (test code = 413) NEUTROPHILS RELATIVE PERCENT 67 % (BEAKER) (test code = 429) LYMPHOCYTES RELATIVE PERCENT 16 % (BEAKER) (test code = 430) MONOCYTES RELATIVE PERCENT 10 % (BEAKER) (test code = 431) EOSINOPHILS RELATIVE PERCENT 1 % (BEAKER) (test code = 432) BASOPHILS RELATIVE PERCENT 2 % (BEAKER) (test code = 437) NEUTROPHILS ABSOLUTE COUNT 6.84 K/ L 1.78-5.38 H (BEAKER) (test code = 670) LYMPHOCYTES ABSOLUTE COUNT 1.60 K/ L 1.32-3.57 (BEAKER) (test code = 414) MONOCYTES ABSOLUTE COUNT (BEAKER) 0.97 K/ L 0.30-0.82 H (test code = 415) EOSINOPHILS ABSOLUTE COUNT 0.14 K/ L 0.04-0.54 (BEAKER) (test code = 416) BASOPHILS ABSOLUTE COUNT (BEAKER) 0.19 K/ L 0.01-0.08 H (test code = 417) IMMATURE GRANULOCYTES-RELATIVE 5 % 0-1 H PERCENT (BEAKER) (test code = 2801) CT, BRAIN/STROKE [id number] 01:56:00 [facility] : 1965 Sex: MFINAL REPORT EXAM: CT, BRAIN/STROKE PROTOCOL INDICATION: Focal neuro deficit, new, fixed or worsening, <6 hours TECHNIQUE: CT images from skull base to vertex without IV contrast. This exam was performed according to the departmental dose optimization program which includes automated exposure control, adjustment of the mA and/or kV according to the patient size, and/or use of an iterative reconstruction technique. COMPARISON: 01/08/2021. FINDINGS: Parenchyma: There is focal hypoattenuation in the posterior left frontal lobe involving a portion of the left precentral gyrus. This is new compared to prior. Unchanged encephalomalacia in the right cerebellar hemisphere. No hemorrhage. No mass or mass effect. Extra-axial Collection: None Ventricular System: Normal Osseous Structures: No acute osseous abnormality. Included Orbits: Normal Paranasal Sinuses: Predominantly clear Tympanomastoid Cavities: Normal Other: None IMPRESSION:The focal hypoattenuation in the posterior left frontal lobe is suggestive of infarction possibly acute to subacute but age-indeterminate. No acute hemorrhage. Findings discussed with the neurology resident at 1:53 AM 08/04/2021 Signed: Hilary Ramos [facility] Verified Date/Time: 08/04/2021 01:56:07 Flow cytometry [id number] 21:29:59 Test Item Value Reference Range Interpretation Comments Case number (test code = [id number]) Flow cytometry evaluation See link below for (test code = 0524380) [facility] [id number] 21:29:59 Test Item Value Reference Range Interpretation Comments Case number (test code = [id number]) Flow cytometry evaluation See link below for (test code = 0042441) PDF [facility] [id number] 21:28:52 Test Item Value Reference Range Interpretation Comments Case number (test code = [id number]) Cytology See link below for (non-gynecological) PDF Lab Report report (test code = 1178) Result status (test code This is Final Report = [id number]) [id number] [facility] [id number] 21:28:52 Test Item Value Reference Range Interpretation Comments Case number (test code = [id number]) Cytology See link below for (non-gynecological) PDF Lab Report report (test code = 1178) Result status (test code This is Final Report = [id number]) for [id number] [facility] [id number] 17:17:16 Test Item Value Reference Range Interpretation Comments POC glucose (test code 121 mg/dL 65-99 H Opera tor Name: = 33433-5) Kiana Dhillonice I D: [id number] able: RN Notified Lab Interpretation Abnormal (test code = 73468-6) [facility]2021-12-15 17:17:16 Test Item Value Reference Range Interpretation Comments POC glucose (test code 121 mg/dL 65-99 H Opera tor Name: = 95950-9) Kiana SantaiSosaice I D: [id number] able: RN Notified Lab Interpretation Abnormal (test code = 63510-5) [address]2021-12-10 21:41:54 Test Item Value Reference Range Interpretation Comments Ventricular rate (test code = 253) Atrial rate (test code = 255) WI interval (test code = 266) QRSD interval (test code = 260) QT interval (test code = 264) QTC interval (test code = 265) P axis 1 (test code = 267) QRS axis 1 (test code = 268) T wave axis (test code = 270) EKG impression (test Normal sinus code = 273) rhythm-Normal ECG-In automated comparison with ECG of 23-JAN-2021 15:23,-No significant change was found- [address]2021-12-10 21:41:54 Test Item Value Reference Range Interpretation Comments Ventricular rate (test code = 253) Atrial rate (test code = 255) WI interval (test code = 266) QRSD interval (test code = 260) QT interval (test code = 264) QTC interval (test code = 265) P axis 1 (test code = 267) QRS axis 1 (test code = 268) T wave axis (test code = 270) EKG impression (test Normal sinus code = 273) rhythm-Normal ECG-In automated comparison with ECG of 23-JAN-2021 15:23,-No significant change was found- [facility] (COVID-19) RNA [Presence] in Respiratory specimen by ZACKARY with probe [id number] 22:24:50 Test Item Value Reference Range Interpretation Comments SARS-CoV-2 (COVID-19) RNA Not detected Not-Detected [Presence] in Respiratory specimen by ZACKARY with probe detection (test code = 58085-3) Whether patient is employed in a healthcare setting (test code = 99561-7) Whether the patient has symptoms related to condition of interest (test code = 44938-7) Patient was hospitalized because of this condition (test code = 12971-5) Whether the patient was admitted to intensive care unit (ICU) for condition of interest (test code = 11872-5) Whether patient resides in a congregate care setting (test code = 28739-5) [facility]ITAL[facility] [id number] 18:54:36 Test Item Value Reference Range Interpretation Comments Urine culture (test SEE COMMENT Bacteriu kg screen code = 9604944) negative. [facility] [id number] 18:54:36 Test Item Value Reference Range Interpretation Comments Urine culture (test SEE COMMENT Bacteriu kg screen code = 0302644) negative. [facility] (COVID-19) RNA [Presence] in Respiratory specimen by ZACKARY with probe [id number] 01:48:21 Test Item Value Reference Range Interpretation Comments SARS-CoV-2 (COVID-19) RNA Not detected Not-Detected [Presence] in Respiratory specimen by ZACKARY with probe detection (test code = 57553-4) Whether patient is employed in a healthcare setting (test code = 91726-8) Whether the patient has symptoms related to condition of interest (test code = 55577-8) Patient was hospitalized because of this condition (test code = 95984-2) Whether the patient was admitted to intensive care unit (ICU) for condition of interest (test code = 81248-7) Whether patient resides in a congregate care setting (test code = 13297-0) [facility]ITALCT, IKENGJESSICA [id number] 15:21:00Unlisted Reason for Exam - Click Yes and Enter Reason Below->No [facility] : 1965 Sex: MFINAL REPORT CT, CTANGIO BRAINBRAIN CT WITHOUT CONTRAST INDICATION: Headache, acute, normal neuro examDizziness, non-specific COMPARISON: CT head of the same date TECHNIQUE:Rapid acquisition spiral images were obtained between the skull base and the cranial vertex during intravenous contrast infusion to reconstruct axial images and angiographic 3D maximum intensity projections (PA P). 3-D volumetric reformatted images were created at a dedicated workstation. Precontrast images ofthe brain were also obtained. DOSE REDUCTION: Dose modulation, iterative reconstruction, and/or weight-based adjustment of the mA/kV was utilized to reduce the radiation dose to as low as reasonably ach ievable. FINDINGS:CT BRAIN:There is height hypoattenuation of the deep white matter in the right cerebellar hemisphere, retrospectively apparent in the prior examination. No hemorrhage is identified. Ashford-white distinction is preserved. No midline shift or hydrocephalus. CTA BRAIN:Minimal calcific atherosclerosis is present in the cavernous carotid arteries but without flow limitation. Middle cerebral arteries are well opacified. The right anterior cerebral artery is prominent, an unprepared to the callosal marginal takeoff. Basilar artery is intact. Superior cerebellar and posterior cerebral arteries demonstrate distal patency. No major branch occlusion in the middle cerebral artery territory. IMP RESSION: Hypoattenuation in the region of the right cerebellar hemisphere of indeterminant etiology and clinical significance. No major branch occlusion or discernible flow limitation in the intracranial circulation. Signed: JR Rollins Robert MDReport Verified Date/Time: 01/08/2021 15:21:50 Read ing Location: [facility] C0[facility] Neuro Reading Room B-type Natriuretic Factor (BNP)2021-01-08 13:22:48 Test Item Value Reference Range Interpretation Comments BNP (test code = 47080-0) 5 pg/mL 0-100 FOREST (test code = FOREST) [employer] ID - DSENSON Lab Interpretation (test Normal code = 80572-0) [facility]-08 13:22:48 Test Item Value Reference Range Interpretation Comments BNP (test code = 47638-5) 5 pg/mL 0-100 FOREST (test code = FOREST) [employer] ID - DSENSON Lab Interpretation (test Normal code = 35905-5) [facility] NAT[facility] (BNP)2021-01-08 13:22:48 Test Item Value Reference Range Interpretation Comments B-TYPE NATRIURETIC PEPTIDE (BEAKER) 5 pg/mL 0-100 (test code = 700) [employer] ID - DSENSONTroponin [id number] 13:18:30 Test Item Value Reference Range Interpretation Comments Troponin I (test code = <0.03 0.00-0.15 83867-0) FOREST (test code = FOREST) Troponin I (TnI) levels must be interpreted in the context of the presenting symptoms and the clinical findings. Elevated TnI levels indicate myocardial damage, but are not specific for ischemic heart disease. Elevated TnI levels are seen in patients with other cardiac conditions (including myocarditis and congestive heart failure), and slight TnI elevations occur in patients with other conditions, including sepsis, renal failure, acidosis, acute neurological disease, and persistent tachyarrhythmia.Opera tor ID - DSENSON Lab Interpretation (test Normal code = 73853-7) [facility] [id number] 13:18:30 Test Item Value Reference Range Interpretation Comments Troponin I (test code = <0.03 0.00-0.15 81603-8) FOREST (test code = FOREST) Troponin I (TnI) levels must be interpreted in the context of the presenting symptoms and the clinical findings. Elevated TnI levels indicate myocardial damage, but are not specific for ischemic heart disease. Elevated TnI levels are seen in patients with other cardiac conditions (including myocarditis and congestive heart failure), and slight TnI elevations occur in patients with other conditions, including sepsis, renal failure, acidosis, acute neurological disease, and persistent tachyarrhythmia.Opera tor ID - DSENSON Lab Interpretation (test Normal code = 17627-5) [facility] [id number] 13:18:30 Test Item Value Reference Range Interpretation Comments TROPONIN I (BEAKER) (test code = 397) < ng/mL 0.00-0.15 Troponin I (TnI) levels must be interpreted in the context of the presenting symptoms and the clinical findings. Elevated TnI levels indicate myocardial damage, but are not specific for ischemic heart disease. Elevated TnI levels are seen in patients with other cardiac conditions (including myocarditis and congestive heart failure), and slight TnI elevations occur in patients with other conditions, including sepsis, renal failure, acidosis, acute neurological disease, and persistent tachyarrhythmia.[employer] ID - DSENSONCT, BRAIN/STROKE [id number] 13:18:00Reason for exam:->EMESISsince 0500Reason for exam:->DIZZINESSsince 11/24/20 is worse todayReason for exam:->BLURRED VISIONsince since 0500 right eyeReason for exam:->CHEST PAINright side rad iates to the backSALINAS SURGERY CENTERName: [facility] : 1965 Sex: MFINAL REPORT CT, BRAIN/STROKE PROTOCOL CLINICAL INDICATION: DizzinessEMESISDIZZINESSBLURRED VISIONCHEST PAIN COMPARISON: None TECHNIQUE: Noncontrast axial CT imaging of the brain and skull. DOSE REDUCTION: Dose modulation, iterative reconstruction, and/or weight-based adjustment of the mA/kV was utilized to reduce the radiation dose to as low as reasonably achievable. FINDINGS:Cerebral parenchyma: Unremarkable.Midline structures: Normally positioned.Cerebellum and brainstem: Normal.Ventricles: Normal volume.Extra-axial spaces: Unremarkable. Calvarium and skull base: Intact.Paran margie sinuses and mastoid air cells: Visible chambers are clear.Orbital contents: Included portions unremarkable. Additional findings: None. IMPRESSION: No acute intracranial abnormality. The findings were discussed with Dr. Ocampo at 1317 hours on January 08, 2021. Signed: JR Rollins Robert MDReport Verified Date/Time: 01/08/2021 13:18:17 Reading Location: [address] Neuro Reading Room [id number] 13:16:46 Test Item Value Reference Range Interpretation Comments MAGNESIUM (BEAKER) (test code = 2.0 mg/dL 1.5-3.0 627) [employer] ID - DSENSONOperator ID - DSENSONOperator ID - DSENSONOperator ID - DSENSONBASIC METABOLIC [id number] 13:15:08 Test Item Value Reference Range Interpretation Comments SODIUM (BEAKER) 137 meq/L 135-148 (test code = 381) POTASSIUM (BEAKER) 4.1 meq/L 3.6-5.5 (test code = 379) CHLORIDE (BEAKER) 106 meq/L 98-106 (test code = 382) CO2 (BEAKER) (test 20 meq/L 20-29 code = 355) BLOOD UREA NITROGEN 11 mg/dL 10-26 (BEAKER) (test code = 354) CREATININE (BEAKER) 0.82 mg/dL 0.50-1.20 (test code = 358) GLUCOSE RANDOM 113 mg/dL 70-110 H (BEAKER) (test code = 652) CALCIUM (BEAKER) 9.7 mg/dL 8.5-10.5 (test code = 697) EGFR (BEAKER) (test 97 mL/min/1.73 ESTIMA PRADEEP GFR IS code = 1092) sq m NOT ACCURATE CREATININE CLEARANCE IN PREDICTING GLOMERULAR FILTRATION RATE . ESTIMATED GFR I S NOT APPLICABLE FOR DIALYSIS PATIEN TS. [employer] ID - DSENSONOperator ID - DSENSONOperator ID - DSENSONOperator ID - DSENSONOperator ID - DSENSONOperator ID - DSENSONOperator ID - DSENSONOperator ID - DSENSONOperator ID - DSENSONPT/[id number] 13:10:43 Test Item Value Reference Range Interpretation Comments PROTIME (BEAKER) (test 11.6 seconds 9.3-12.0 Final Information code = 759) (Auto Output) INR (BEAKER) (test 1.05 See_Comment Final Inf ormation code = 370) (Auto Output) [Automated mess age] The system [employer] generated this result transmit pradeep reference range : <=5.90. The reference range was not used to interpret this result as normal/abnormal . PARTIAL THROMBOPLASTIN 28.8 seconds 23.0-35.0 Final Information TIME (BEAKER) (test (Auto Ou tput) code = 760) RECOMMENDED COUMADIN/WARFARIN INR THERAPY RANGESSTANDARD DOSE: 2.0 - 3.0 Includes: PROPHYLAXIS for venous thrombosis, systemic embolization; TREATMENT for venous thrombosis and/or pulmonary embolus.HIGH RISK: Target INR is 2.5-3.5 for patients with mechanical heart valves.CBC W/PLT COUNT & AUTO [id number] 13:07:02 Test Item Value Reference Range Interpretation Comments WHITE BLOOD CELL COUNT (BEAKER) 12.6 K/ L 4.0-10.0 H (test code = 775) RED BLOOD CELL COUNT (BEAKER) 6.88 M/ L 4.20-5.80 H (test code = 761) HEMOGLOBIN (BEAKER) (test code = 15.3 GM/DL 13.0-16.8 410) HEMATOCRIT (BEAKER) (test code = 49.4 % 36.0-50.0 411) MEAN CORPUSCULAR VOLUME (BEAKER) 71.8 fL 82.0-99.0 L (test code = 753) MEAN CORPUSCULAR HEMOGLOBIN 22.2 pg 27.0-33.0 L (BEAKER) (test code = 751) MEAN CORPUSCULAR HEMOGLOBIN CONC 31.0 GM/DL 32.0-36.0 L (BEAKER) (test code = 752) RED CELL DISTRIBUTION WIDTH 19.3 % 12.0-15.0 H (BEAKER) (test code = 412) PLATELET COUNT (BEAKER) (test 380 K/CU MM 150-430 code = 756) MEAN PLATELET VOLUME (BEAKER) 10.4 fL 6.0-11.5 (test code = 754) NUCLEATED RED BLOOD CELLS 0 /100 WBC 0-0 (BEAKER) (test code = 413) NEUTROPHILS RELATIVE PERCENT 80 % (BEAKER) (test code = 429) LYMPHOCYTES RELATIVE PERCENT 12 % (BEAKER) (test code = 430) MONOCYTES RELATIVE PERCENT 4 % (BEAKER) (test code = 431) EOSINOPHILS RELATIVE PERCENT 1 % (BEAKER) (test code = 432) BASOPHILS RELATIVE PERCENT 1 % (BEAKER) (test code = 437) NEUTROPHILS ABSOLUTE COUNT 10.07 K/ L 1.80-8.00 H (BEAKER) (test code = 670) LYMPHOCYTES ABSOLUTE COUNT 1.56 K/ L 1.48-4.50 (BEAKER) (test code = 414) MONOCYTES ABSOLUTE COUNT (BEAKER) 0.53 K/ L 0.00-1.30 (test code = 415) EOSINOPHILS ABSOLUTE COUNT 0.17 K/ L 0.00-0.50 (BEAKER) (test code = 416) BASOPHILS ABSOLUTE COUNT (BEAKER) 0.15 K/ L 0.00-0.20 (test code = 417) IMMATURE GRANULOCYTES-RELATIVE 1 % 0-0 H PERCENT (BEAKER) (test code = 2801) POCT-GLUCOSE [id number] 12:55:35 Test Item Value Reference Range Interpretation Comments POC-GLUCOSE METER 123 mg/dL 70-110 H : TESTED A T SLSL 1317 (BEAKER) (test code [address] [address], = [address]) [facility] 77 478: [employer]/Techni sandra ID = [id number] for Melba Marvin RAD, CHEST, 1 VIEW, NON [id number] 12:51:00Reason for exam:->EMESISsince 0500Reason for exam:->DIZZINESSsince 11/24/20 is worse todayReason for exam:- >BLURRED VISIONsince since 0500 right eyeReason for exam:->CHEST PAINright side radiates to the back [facility] : 1965 Sex: MFINAL REPORT INDICATION: EMESISDIZZINESSBLURRED VISIONCHEST PAIN COMPARISON: None TECHNIQUE: Single frontal view of the chest. FINDINGS: Lungs and pleura: Clear lungs. No effusion.Heart and mediastinum: Normal heart size. Unremarkable mediastinal contours.Osseous structures: No acute abnormality.Other: None. IMPRESSION: No acute intrathoracic abnormality. Signed: Chandler St MDReport Verified Date/Time: 01/08/2021 12:51:37 Transthoracic Echocardiogram Complete, (w Contrast, Strain and 3D if needed)2021-01-05 20:15:26 Test Item Value Reference Range Interpretation Comments Ao Root Diameter 3.20 cm (test code = 3863882265) AoV Area, Vmax (test 3.58 cm2 code = 3975949601) AoV Area, VTI (test 4.20 cm2 code = 3826750681) AoV Mean PG (test mmHg code = 2750533692) AoV Peak PG (test mmHg code = 5088105266) AoV Vmax (test code = 1.22 m/s 0966671973) AoV VTI (test code = 0.19 m 9224492450) IVS,d (test code = 0.88 cm 9158829367) IVS/LVPW,2D (test code = 6410980537) Left Atrium Dimension 3.54 cm Anterior (test code = 4321071965) LV,d (test code = 6.31 cm 1236505740) LV EF,2D (test code = 61.11 % 5337808809) LV,s (test code = 4.60 cm 2573660350) LVOT area (test code 4.75 cm2 = 2436260533) LVOT Diam,S (test 2.46 cm code = 0777322196) LVOT Vmax (test code 0.92 m/s = 8545817922) LVOT VTI (test code = 0.17 m 4409659092) LVPWD,d (test code = 0.83 cm 7916932146) PV Pk Grad (test code mmHg = 0502468347) PV VMAX (test code = 0.94 m/s 5740412474) RVOT Vmax (test code 0.72 m/s = 0727527743) TR Vpeak (test code = 2.34 mm/s 5288506947) MV E A ratio (test code = 2547247555) TR pk grad (test code mmHg = 4059860929) E wave decelartion msec time (test code = 5247762564) MV Peak A Martinez (test 0.64 m/s code = 3269583513) MV valve area p 1/2 4.14 cm2 method (test code = 7064388717) MV Peak E Martinez (test 0.58 m/s code = 3618636650) MV stenosis pressure 53.14 ms 1/2 time (test code = 5790883902) LVOT stroke volume 0.81 cm3 (test code = 9987504153) AV LVOT peak gradient mmHg (test code = 1400815960) Ascending aorta (test 3.42 cm code = 9758132071) Ao Root Diameter 3.20 cm (test code = 7374089416) LV SYS VOL (test code 97.46 ml = 1357584860) LV MANRIQUEZ VOL (test 201.57 ml code = 9295261765) LA area s A4C (test 17.97 cm2 code = 8632827253) LV SV Teich 2D (test 104.12 ml code = 6342311126) LV Vol s Teich PSAX 97.46 ml (test code = 4211835216) RVOT pk grad (test mmHg code = 9146404824) AoV Vmn (test code = 5605455491) LV FS Teich 2D (test code = 0558440705) MV AE ratio (test code = 0251039214) LV FS Cube 2D (test code = 6322460377) LVOT Vmn (test code = 4644510077) Aov area Vmn (test 3.19 cm2 code = 2221494988) LVOT mean grad (test mmHg code = 3899177233) MAX Pred HR (test code = 1708655245) 85 of MPHR (test code = 0293269970) Calc MPHR (test code bpm = 2894648262) LV SV Cube 2D (test 153.19 ml code = 8769003597) LV vol d cube 2D 250.68 ml (test code = 6989629448) LV vol s cube 2D 97.49 ml (test code = 0581576017) MV Decel slope (test 3.19 m/s2 code = 6565474373) Pred Exer Dur R1 (test code = 7003191263) Pred METS R1 (test code = 2518140356) LA Vol MOD A4C (test 51.69 ml code = 4477468730) Velocity Ratio 0.75 m/s (V1/V2) (test code = 4689) EF (test code = 51.65 % 6777935157) E/A ratio (test code = 6608369855) LVOT VTI (CM) (test 17.00 cm code = 2204626110) FOREST (test code = FOREST) Left ventricular systolic function is normal. Left Ventricular ejection fraction is 60 - 65%. Spectral Doppler shows impaired relaxation pattern of left ventricular diastolic filling. Left VentricleThe left ventricular chamber size is normal. Left ventricular systolic function is normal. Left Ventricular ejection fraction is 60 - 65%. Normal left ventricular wall thickness and regional wall motion.Right VentricleNormal right ventricular size and global function.Left AtriumLA size is normal.Right AtriumThe right atrium is normal.IVC/SVCThe inferior vena cava and hepatic vein were normal in this study.Mitral ValveThe mitral valve appears normal. No evidence of significant mitral valve regurgitation. No evidence of mitral valve stenosis.Tricuspid ValveThe tricuspid valve appears normal. Trace tricuspid valve regurgitation. No evidence of tricuspid valve stenosis.Aortic ValveThe aortic valve appears normal. No evidence of significant aortic regurgitation. No evidence of aortic valve stenosis.Pulmonic ValveThe pulmonic valve appears normal. No evidence of significant pulmonary valve regurgitation. No evidence of pulmonary valve stenosis.PericardiumNo pericardial effusion seen.Pulmonary ArteryThe pulmonary artery appears normal.DiastologySpectra l Doppler shows impaired relaxation pattern of LV diastolic filling.AortaAortic root is normal.Study Quality Study quality is good.Shunt No patent foramen ovale is present. [facility] ([facility]) RNA [Presence] in Respiratory specimen by ZACKARY with probe [id number] 01:26:13 Test Item Value Reference Range Interpretation Comments SARS-CoV-2 (COVID-19) RNA Not detected Not-Detected [Presence] in Respiratory specimen by ZACKARY with probe detection (test code = 91019-4) Whether patient is employed in a healthcare setting (test code = 08397-8) Whether the patient has symptoms related to condition of interest (test code = 16314-4) Patient was hospitalized because of this condition (test code = 24803-2) Whether the patient was admitted to intensive care unit (ICU) for condition of interest (test code = 45184-7) Whether patient resides in a congregate care setting (test code = 08897-6) [facility]) 2019-12-07 12:48:00 Test Item Value Reference Range Interpretation Comments SARS-COV2/RT-PCR (test Negative Not Detected, Negative, code = 5072107) See external report for linked test SARS-COV-2 PERFORMING LAB [facility] (test code = 4215410) Negative result for this test determines that SARS-CoV-2 RNA was not present in the specimen above the Limit of Detection (LOD). However, Negative results do not preclude SARS-CoV-2 infection and should not be used as the sole basis for treatment or patient management decisions. Negative results must be combined with clinical observations, patient history, and epidemiological information. A false negative result may occur if a specimen is improperly collected, transported or handled. A false negative result should be considered if patient's recent exposures or clinical presentation indicate that COVID-19 (SARS-CoV-2) is likely and diagnostic tests for other causes of illness are negative. Re-testing should be considered in cases of suspected false negatives.The limit of detection for this assay is 800 copies/mL.This SARS CoV-2 test is a real-time RT-PCR test intended for the qualitative detection of nucleic acid from SARS-CoV-2 in a nasopharyngeal swab specimen collected from individuals suspected of COVID-19 by their healthcare provider.This test has not been Food and Drug Administration (FDA) cleared or approved. This is a modified version of an approved Emergency Use Authorization (EUA) and is in the process of review by the FDA. Once authorized by the FDA, the issued EUA will be effective until the declaration that circumstances exist justifying the authorization of the emergency use ofin vitro diagnostic tests for detection and/or diagnosis of COVID-19 is terminated under Section 564(b)(2) of the Act or the EUA is revoked under Section 564(g) of the Act.Fact Sheet for Healthcare Prov iders:https://www.[employer]/sites/default/files/product/documents/Fact_Sheet_HC _Inqlkvjjx_Cvrk_ZWES-HoN-7.pdfFact Sheet for Healthcare Patients:https://www.[employer]/sites/default/files/product/docume nts/Yjcc_Urmnn_Nppusedj_Odpw_LXGS-TjH-5.pdfPerforming Laboratory:[facility], [place] [address]FGV W/PLT COUNT & AUTO [id number] 08:31:00 Test Item Value Reference Range Interpretation Comments WHITE BLOOD CELL COUNT (BEAKER) 9.0 K/ L 3.5-10.5 (test code = 775) RED BLOOD CELL COUNT (BEAKER) 6.45 M/ L 4.63-6.08 H (test code = 761) HEMOGLOBIN (BEAKER) (test code = 15.5 GM/DL 13.7-17.5 410) HEMATOCRIT (BEAKER) (test code = 50.5 % 40.1-51.0 411) MEAN CORPUSCULAR VOLUME (BEAKER) 78.3 fL 79.0-92.2 L (test code = 753) MEAN CORPUSCULAR HEMOGLOBIN 24.0 pg 25.7-32.2 L (BEAKER) (test code = 751) MEAN CORPUSCULAR HEMOGLOBIN CONC 30.7 GM/DL 32.3-36.5 L (BEAKER) (test code = 752) RED CELL DISTRIBUTION WIDTH 22.4 % 11.6-14.4 H (BEAKER) (test code = 412) PLATELET COUNT (BEAKER) (test 344 K/CU MM 150-450 code = 756) MEAN PLATELET VOLUME (BEAKER) 9.9 fL 9.4-12.4 (test code = 754) NUCLEATED RED BLOOD CELLS 0 /100 WBC 0-0 (BEAKER) (test code = 413) NEUTROPHILS RELATIVE PERCENT 62 % (BEAKER) (test code = 429) LYMPHOCYTES RELATIVE PERCENT 24 % (BEAKER) (test code = 430) MONOCYTES RELATIVE PERCENT 7 % (BEAKER) (test code = 431) EOSINOPHILS RELATIVE PERCENT 5 % (BEAKER) (test code = 432) BASOPHILS RELATIVE PERCENT 2 % (BEAKER) (test code = 437) NEUTROPHILS ABSOLUTE COUNT 5.58 K/ L 1.78-5.38 H (BEAKER) (test code = 670) LYMPHOCYTES ABSOLUTE COUNT 2.15 K/ L 1.32-3.57 (BEAKER) (test code = 414) MONOCYTES ABSOLUTE COUNT (BEAKER) 0.61 K/ L 0.30-0.82 (test code = 415) EOSINOPHILS ABSOLUTE COUNT 0.41 K/ L 0.04-0.54 (BEAKER) (test code = 416) BASOPHILS ABSOLUTE COUNT (BEAKER) 0.17 K/ L 0.01-0.08 H (test code = 417) IMMATURE GRANULOCYTES-RELATIVE 1 % 0-1 PERCENT (BEAKER) (test code = 2801) BASIC METABOLIC [id number] 08:20:00 Test Item Value Reference Range Interpretation Comments SODIUM (BEAKER) 140 meq/L 136-145 (test code = 381) POTASSIUM (BEAKER) 4.5 meq/L 3.5-5.1 (test code = 379) CHLORIDE (BEAKER) 104 meq/L 98-107 (test code = 382) CO2 (BEAKER) (test 28 meq/L 22-29 code = 355) BLOOD UREA NITROGEN 12 mg/dL 7-21 (BEAKER) (test code = 354) CREATININE (BEAKER) 0.98 mg/dL 0.57-1.25 (test code = 358) GLUCOSE RANDOM 122 mg/dL 70-105 H (BEAKER) (test code = 652) CALCIUM (BEAKER) 9.0 mg/dL 8.4-10.2 (test code = 697) EGFR (BEAKER) (test 79 mL/min/1.73 ESTIMA PRADEEP GFR IS code = 1092) sq m NOT ACCURATE CREATININE CLEARANCE IN PREDICTING GLOMERULAR FILTRATION RATE . ESTIMATED GFR I S NOT APPLICABLE FOR DIALYSIS PATIEN TS. [employer] ID - EDASIPROTHROMBIN [id number] 08:17:00 Test Item Value Reference Range Interpretation Comments PROTIME (BEAKER) (test code = 13.9 seconds 11.9-14.2 759) INR (BEAKER) (test code = 370) 1.10 <=5.90 Effective 07/30/2018: PT Reference Range ChangeNew: 11.9-14.2 Previous: 11.7- 14.7RECOMMENDED COUMADIN/WARFARIN INR THERAPY RANGESSTANDARD DOSE: 2.0-3.0 Includes: PROPHYLAXIS for venous thrombosis, systemic embolization; TREATMENT for venous thrombosis and/or pulmonary embolus.HIGH RISK: Target INR is 2.5-3.5 for patients wiht mechanical heart valves.[id number] 05:04:00 Test Item Value Reference Range Interpretation Comments BLOOD UREA NITROGEN (BEAKER) (test 7 mg/dL 7-21 code = 354) [id number] 05:04:00 Test Item Value Reference Range Interpretation Comments SODIUM (BEAKER) (test code = 381) 139 meq/L 136-145 POTASSIUM (BEAKER) (test code = 3.8 meq/L 3.5-5.1 379) CHLORIDE (BEAKER) (test code = 382) 107 meq/L 98-107 CO2 (BEAKER) (test code = 355) 28 meq/L 22-29 [id number] 05:04:00 Test Item Value Reference Range Interpretation Comments CREATININE (BEAKER) 0.83 mg/dL 0.57-1.25 (test code = 358) EGFR (BEAKER) (test 97 mL/min/1.73 ESTIMA PRADEEP GFR IS code = 1092) sq m NOT ACCURATE CREATININE CLEARANCE IN PREDICTING GLOMERULAR FILTRATION RATE . ESTIMATED GFR I S NOT APPLICABLE FOR DIALYSIS PATIEN TS. HEMOGLOBIN AND [id number] 04:46:00 Test Item Value Reference Range Interpretation Comments HEMOGLOBIN ([facility] (test code = 13.7 GM/DL 13.7-17.5 410) HEMATOCRIT ([facility] (test code = 40.5 % 40.1-51.0 411) [id number] 11:48:00 Test Item Value Reference Range Interpretation Comments ACTIVATED CLOTTING TIME 125 sec TEST ED AT [place] [address] ([facility] (test code = [place] [address]) [id number] 11:00:00 Test Item Value Reference Range Interpretation Comments ACTIVATED CLOTTING TIME 312 sec TEST ED AT [place] [address] ([facility] (test code = JE[place] [address]) [id number] 11:00:00 Test Item Value Reference Range Interpretation Comments ACTIVATED CLOTTING TIME 285 sec TEST ED AT [place] [address] ([facility] (test code = [place] [address]) [id number] 11:00:00 Test Item Value Reference Range Interpretation Comments ACTIVATED CLOTTING TIME 268 sec TEST ED AT [place] [address] ([facility] (test code = JE[place] [address]) [id number] 11:00:00 Test Item Value Reference Range Interpretation Comments ACTIVATED CLOTTING TIME 230 sec TEST ED AT [place] [address] ([facility] (test code = [place] [address]) [id number] 11:00:00 Test Item Value Reference Range Interpretation Comments ACTIVATED CLOTTING TIME 202 sec TEST ED AT [place] [address] ([facility] (test code = JE[place] [address]) [id number] 06:24:00 Test Item Value Reference Range Interpretation Comments MAGNESIUM (BEAKER) 2.4 mg/dL 1.6-2.6 Specimen slightly (test code = 627) hemolyzed BASIC METABOLIC [id number] 06:24:00 Test Item Value Reference Range Interpretation Comments SODIUM (BEAKER) 141 meq/L 136-145 (test code = 381) POTASSIUM (BEAKER) 4.0 meq/L 3.5-5.1 Specimen slightly (test code = 379) hemolyzed CHLORIDE (BEAKER) 108 meq/L 98-107 H (test code = 382) CO2 (BEAKER) (test 25 meq/L 22-29 code = 355) BLOOD UREA NITROGEN 12 mg/dL 7-21 (BEAKER) (test code = 354) CREATININE (BEAKER) 0.96 mg/dL 0.57-1.25 Specimen slightly (test code = 358) hemolyzed GLUCOSE RANDOM 127 mg/dL 70-105 H (BEAKER) (test code = 652) CALCIUM (BEAKER) 9.0 mg/dL 8.4-10.2 (test code = 697) EGFR (BEAKER) (test 82 mL/min/1.73 ESTIMA PRADEEP GFR IS code = 1092) sq m NOT ACCURATE CREATININE CLEARANCE IN PREDICTING GLOMERULAR FILTRATION RATE . ESTIMATED GFR I S NOT APPLICABLE FOR DIALYSIS PATIEN TS. PROTHROMBIN [id number] 06:24:00 Test Item Value Reference Range Interpretation Comments PROTIME (BEAKER) (test code = 14.7 seconds 11.7-14.7 759) INR (BEAKER) (test code = 370) 1.1 <=5.9 RECOMMENDED COUMADIN/WARFARIN INR THERAPY RANGESSTANDARD DOSE: 2.0 - 3.0 Includes: PROPHYLAXIS for venous thrombosis, systemic embolization; TREATMENT for venous thrombosis and/or pulmonary embolus.HIGH RISK: Target INR is 2.5-3.5 for patients with mechanical heart valves.Within 24 hours, if on CoumadinCBC W/PLT COUNT & AUTO [id number] 06:10:00 Test Item Value Reference Range Interpretation Comments WHITE BLOOD CELL COUNT (BEAKER) 8.5 K/ L 3.5-10.5 (test code = 775) RED BLOOD CELL COUNT (BEAKER) 5.13 M/ L 4.63-6.08 (test code = 761) HEMOGLOBIN (BEAKER) (test code = 16.1 GM/DL 13.7-17.5 410) HEMATOCRIT (BEAKER) (test code = 48.7 % 40.1-51.0 411) MEAN CORPUSCULAR VOLUME (BEAKER) 94.9 fL 79.0-92.2 H (test code = 753) MEAN CORPUSCULAR HEMOGLOBIN 31.4 pg 25.7-32.2 (BEAKER) (test code = 751) MEAN CORPUSCULAR HEMOGLOBIN CONC 33.1 GM/DL 32.3-36.5 (BEAKER) (test code = 752) RED CELL DISTRIBUTION WIDTH 14.3 % 11.6-14.4 (BEAKER) (test code = 412) PLATELET COUNT (BEAKER) (test 310 K/CU MM 150-450 code = 756) MEAN PLATELET VOLUME (BEAKER) 10.4 fL 9.4-12.4 (test code = 754) NUCLEATED RED BLOOD CELLS 0 /100 WBC 0-0 (BEAKER) (test code = 413) NEUTROPHILS RELATIVE PERCENT 66 % (BEAKER) (test code = 429) LYMPHOCYTES RELATIVE PERCENT 22 % (BEAKER) (test code = 430) MONOCYTES RELATIVE PERCENT 6 % (BEAKER) (test code = 431) EOSINOPHILS RELATIVE PERCENT 4 % (BEAKER) (test code = 432) BASOPHILS RELATIVE PERCENT 1 % (BEAKER) (test code = 437) NEUTROPHILS ABSOLUTE COUNT 5.60 K/ L 1.78-5.38 H (BEAKER) (test code = 670) LYMPHOCYTES ABSOLUTE COUNT 1.87 K/ L 1.32-3.57 (BEAKER) (test code = 414) MONOCYTES ABSOLUTE COUNT (BEAKER) 0.49 K/ L 0.30-0.82 (test code = 415) EOSINOPHILS ABSOLUTE COUNT 0.32 K/ L 0.04-0.54 (BEAKER) (test code = 416) BASOPHILS ABSOLUTE COUNT (BEAKER) 0.11 K/ L 0.01-0.08 H (test code = 417) IMMATURE GRANULOCYTES-RELATIVE 1 % 0-1 PERCENT (BEAKER) (test code = 2801) CT, HEART, [id number] 16:45:00Reason for Exam:->sob, a-fibAddendum BeginsREPORT STATUS:A Addendum: January 24, 2018 at 1645 hours I havereviewed the CT images for this study with the nonvascular imaging findings as dictated. Signed: Pancho Wade MDReport Verified Date/Time: 01/24/2018 16:45:04 Reading Location: [place] [address] Angio Body Reading RoomAddendum EndsFINAL REPORT CT angiography of the pulmonary veins, 24 January 2018 INDICATION: This is a 52 years old male with history of atrial fibrillation presentedhere for pulmonary vein ostial mapping. This study is performed in an attempt to avoid invasive procedure. TECHNIQUE: Spiral acquisition during intravenous contrast administration using a seen multislice cardiac CT scanner without prospective ECG triggering. Multiplanar reconstructions were performed interactively by the interpreting physician using an independent ([email or web address]) workstation. Please refer to the contrast sheet scanned in the EPIC system for the amount and route of contrast given. This examwas performed according to our departmental dose-optimisation programme, which includes automated exposure control, adjustment of the mA and/or kV according to patient size and/or use of iterative reconstruction technique. Dose modulation, iterative reconstruction, and/or weight based adjustment of the mA/kV was utilized to reduce the radiation dose to as low as reasonably achievable. FINDINGS: VASCULAR: The pericardium appears normal. No pericardial effusion is identified. There is no evidence of central pulmonary artery embolism. The central pulmonary artery is at the upper limits of normal in size. The thoracic aorta is normal in course, calibre, and contour. There is no evidence for acute aortic pathology. The arch vessel branching pattern is normal, and the origins of the arch branch vesselsare all widely patent. The cardiac chambers demonstrate normal atrioventricular and ventriculoarterial concordance, and systemic and pulmonary venous return. The left ventricle is normal in size, and no abnormal mass is seen. This is a nongated data set. 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 Clinical significance of this f inding is uncertain especially if patient is asymptomatic. Again, this a non-ECG gated data set, andsome motion artefact is present. Left atrial prominence is noted. The left atrial appendage is well seen, and no thrombus is present. Pulmonary vein morphology is normal with pairs of pulmonary veins on each side of the left atrium. There is no evidence for pulmonary vein stenosis. Quantitative pulmonary vein ostial mapping (measured utilizing MPR analysis) is as follows: Pulmonary vein Major axis Minor axis Cross-sectional area R ight upper 20 mm 16 mm 2.8 ga6Zitjw lower 23 mm 17 mm 2.9 no2Mfry upper 17 mm 9 mm 1.3 vt1Psho lower21 mm 13 mm 1.7 cm2 NON-VASCULAR: The visualised thyroid gland appears unremarkable. The chest wall and mediastinum appears normal. No significant adenopathy is identified in the mediastinum. In the lung windows, no obvious endobronchial lesion is seen, and no pleural effusions identified. Dependent changes are noted. There is no suspicious pulmonary nodule is identified. Limited images of the upper abdomen reveals no gross abnormality. In the AP orientation, the spleen measures almost 16 cm in length, that is considered prominent. Little significant of this finding is uncertain. Correlate clinically. No acute bony pathology is seen except for the presence of minimal degenerative changes. Likely some atelectatic changes/scarring along the fissure in the peripheral aspect of the right lung. IMPRESSIONS: 1. The left atrium is enlarged. The left atrial appendage is well seen and no thrombus is present. 2. The left coronary artery arises from the left sinus of Valsalva. 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 If patient is asymptomatic, this is likely an incidental finding. 3. Pulmonary vein morphology is normal with pairs of pulmonary veins bilaterally. There is no evidencefor pulmonary vein stenosis. Quantitative pulmonary vein ostial mapping is as noted above. 4. Normalthoracic aorta. 5. No acute pulmonary pathology. 6. An addendum will be dictated regarding the non-va scular findings by the [employer] Radiologist. Signed: Devon Barker MDReport Verified Date/Time:01/24/2018 14:01:18 Reading Location: [place] [address] Cardiology MRI [id number] 11:34:00 Test Item Value Reference Range Interpretation Comments SODIUM (BEAKER) (test code = 381) 142 meq/L 136-145 POTASSIUM (BEAKER) (test code = 4.1 meq/L 3.5-5.1 379) CHLORIDE (BEAKER) (test code = 382) 107 meq/L 98-107 CO2 (BEAKER) (test code = 355) 27 meq/L 22-29 BUN AND [id number] 11:34:00 Test Item Value Reference Range Interpretation Comments BLOOD UREA NITROGEN 13 mg/dL 7-21 (BEAKER) (test code = 354) CREATININE (BEAKER) 0.91 mg/dL 0.57-1.25 (test code = 358) EGFR (BEAKER) (test 87 mL/min/1.73 ESTIMA PRADEEP GFR IS code = 1092) sq m NOT ACCURATE CREATININE CLEARANCE IN PREDICTING GLOMERULAR FILTRATION RATE . ESTIMATED GFR I S NOT APPLICABLE FOR DIALYSIS PATIEN JERICA. [id number] 11:19:00 Test Item Value Reference Range Interpretation Comments PARTIAL THROMBOPLASTIN TIME 28.9 seconds 22.5-36.0 (BEAKER) (test code = 760) PROTHROMBIN [id number] 11:18:00 Test Item Value Reference Range Interpretation Comments PROTIME (BEAKER) (test code = 13.9 seconds 11.7-14.7 759) INR (BEAKER) (test code = 370) 1.1 <=5.9 RECOMMENDED COUMADIN/WARFARIN INR THERAPY RANGESSTANDARD DOSE: 2.0 - 3.0 Includes: PROPHYLAXIS for venous thrombosis, systemic embolization; TREATMENT for venous thrombosis and/or pulmonary embolus.HIGH RISK: Target INR is 2.5-3.5 for patients with mechanical heart valves.CBC (HEMOGRAM ONLY)[id number] 11:09:00 Test Item Value Reference Range Interpretation Comments WHITE BLOOD CELL COUNT (BEAKER) 9.4 K/ L 3.5-10.5 (test code = 775) RED BLOOD CELL COUNT (BEAKER) 5.04 M/ L 4.63-6.08 (test code = 761) HEMOGLOBIN (BEAKER) (test code = 16.4 GM/DL 13.7-17.5 410) HEMATOCRIT (BEAKER) (test code = 48.0 % 40.1-51.0 411) MEAN CORPUSCULAR VOLUME (BEAKER) 95.2 fL 79.0-92.2 H (test code = 753) MEAN CORPUSCULAR HEMOGLOBIN 32.5 pg 25.7-32.2 H (BEAKER) (test code = 751) MEAN CORPUSCULAR HEMOGLOBIN CONC 34.2 GM/DL 32.3-36.5 (BEAKER) (test code = 752) RED CELL DISTRIBUTION WIDTH 14.4 % 11.6-14.4 (BEAKER) (test code = 412) PLATELET COUNT (BEAKER) (test 314 K/CU MM 150-450 code = 756) MEAN PLATELET VOLUME (BEAKER) 10.3 fL 9.4-12.4 (test code = 754) NUCLEATED RED BLOOD CELLS 0 /100 WBC 0-0 (BEAKER) (test code = 413) CBC WITH MANUAL [id number] 05:44:00 Test Item Value Reference Range Interpretation Comments WBC (test code = WBC) 8.9 10\\S\\3/uL 4.5-11.0 RBC (test code = RBC) 5.29 10\\S\\6/uL 4.20-5.60 HGB (test code = HBG) 16.6 g/dL 14.0-18.0 HCT (test code = HCT) 48.6 % 35.0-46.0 H MCV (test code = MCV) 91.9 fL 80.0-94.0 MCH (test code = MCH) 31.4 pg 27.0-31.0 H MCHC (test code = MCHC) 34.2 g/dL 32.0-36.0 RDW (test code = RDW) 14.0 % 11.5-14.5 PLT (test code = PLT) 236 10\\S\\3/uL 130-400 MPV (test code = MPV) 10.8 fL 9.4-12.4 NEUTROP # (test code = 5.6 10\\S\\3/uL 2.0-8.0 NE#) LYMPH # (test code = 2.0 10\\S\\3/uL 1.2-4.0 LY#) MONOCYTE # (test code = 0.7 10\\S\\3/uL 0.0-1.1 MO#) EOSINOPH # (test code = 0.4 10\\S\\3/uL 0.0-0.7 EO#) BASOPHIL # (test code = 0.1 10\\S\\3/uL 0.0-0.3 BA#) IG # (test code = IG#) 0.07 10\\S\\3/uL 0.00-0.06 H NRBC # (test code = 0.00 10\\S\\3/uL 0.00-0.01 NRBC#) NEUTROPH % (test code = 63.0 % 35.0-73.0 NE%) LYMPH % (test code = 23.1 % 20.0-55.0 LY%) MONO % (test code = 7.5 % 2.5-10.0 MO%) EOSINOPH % (test code = 4.1 % 0.0-5.0 EO%) BASOPHIL % (test code = 1.5 % 0.0-2.0 BA%) IG % (test code = IG%) 0.8 % 0.0-0.8 NRBC% (test code = 0.0 % 0.0-0.2 NRBC%) MAN DIFF (test code = MANUAL HMDIFF) DIFFERENTIAL SEG (test code = SEG) 68 % 42-75 BAND (test code = BAND) 0 % 0-8 LYMPH (test code = 21 % 20-51 LYMPH) MONO (test code = MONO) 8 % 3-11 EOS (test code = EOS) 2 % <=10 BASO (test code = BASO) 1 % 0-2 RBC MORPH (test code = ABNORMAL NORMAL A RBCMORN) PLT EST (test code = ADEQUATE ADEQUATE PLTEST) PLT MORPH (test code = NORMAL (1.5-3 um) NORMAL PLTMOR) ANISO (test code = 1+ NONE A ANISO) HYPOCHROM (test code = 1+ NONE A HYPOC) MACRO (test code = 1+ NONE A MACRO) BASIC METABOLIC [id number] 05:42:00 Test Item Value Reference Range Interpretation Comments GLUCOSE (test code = 06D) 112 mg/dL 75-100 H SODIUM (test code = 01A) 139 mmol/L 136-145 POTASSIUM (test code = 01B) 4.0 mmol/L 3.6-5.1 CHLORIDE (test code = 04A) 106 mmol/L 98-107 CO2 (test code = 02A) 25 mmol/L 22-32 ANION GAP (test code = ANG) 12.0 mmol/L BUN (test code = 05D) 12 mg/dL 7-18 CREATININE (test code = 03E) 0.9 mg/dL 0.7-1.3 BUN/CREA (test code = BCR) 13 12-20 CALCIUM (test code = 09D) 8.5 mg/dL 8.3-9.5 CBC (INCLUDES AUTOMATED DIFFERENTIAL)2017-09-02 06:52:00 Test Item Value Reference Range Interpretation Comments WBC (test code = WBC) 8.1 10\\S\\3/uL 4.5-11.0 RBC (test code = RBC) 4.89 10\\S\\6/uL 4.20-5.60 HGB (test code = HBG) 15.2 g/dL 14.0-18.0 HCT (test code = HCT) 44.3 % 35.0-46.0 MCV (test code = MCV) 90.6 fL 80.0-94.0 MCH (test code = MCH) 31.1 pg 27.0-31.0 H MCHC (test code = MCHC) 34.3 g/dL 32.0-36.0 RDW (test code = RDW) 14.0 % 11.5-14.5 PLT (test code = PLT) 229 10\\S\\3/uL 130-400 MPV (test code = MPV) 10.8 fL 9.4-12.4 NEUTROP # (test code = NE#) 5.2 10\\S\\3/uL 2.0-8.0 LYMPH # (test code = LY#) 1.9 10\\S\\3/uL 1.2-4.0 MONOCYTE # (test code = MO#) 0.5 10\\S\\3/uL 0.0-1.1 EOSINOPH # (test code = EO#) 0.3 10\\S\\3/uL 0.0-0.7 BASOPHIL # (test code = BA#) 0.1 10\\S\\3/uL 0.0-0.3 IG # (test code = IG#) 0.06 10\\S\\3/uL 0.00-0.06 NRBC # (test code = NRBC#) 0.00 10\\S\\3/uL 0.00-0.01 NEUTROPH % (test code = NE%) 63.8 % 35.0-73.0 LYMPH % (test code = LY%) 23.8 % 20.0-55.0 MONO % (test code = MO%) 6.5 % 2.5-10.0 EOSINOPH % (test code = EO%) 4.0 % 0.0-5.0 BASOPHIL % (test code = BA%) 1.2 % 0.0-2.0 IG % (test code = IG%) 0.7 % 0.0-0.8 NRBC% (test code = NRBC%) 0.0 % 0.0-0.2 MANDIFF (test code = MDIFF) NO NO RBC MORPH (test code = RBCMOR) NORMAL BASIC METABOLIC [id number] 06:52:00 Test Item Value Reference Range Interpretation Comments GLUCOSE (test code = 06D) 109 mg/dL 75-100 H SODIUM (test code = 01A) 140 mmol/L 136-145 POTASSIUM (test code = 01B) 4.1 mmol/L 3.6-5.1 CHLORIDE (test code = 04A) 108 mmol/L 98-107 H CO2 (test code = 02A) 27 mmol/L 22-32 ANION GAP (test code = ANG) 9.1 mmol/L BUN (test code = 05D) 11 mg/dL 7-18 CREATININE (test code = 03E) 0.9 mg/dL 0.7-1.3 BUN/CREA (test code = BCR) 12 12-20 CALCIUM (test code = 09D) 8.0 mg/dL 8.3-9.5 L URINALYSIS WITH [id number] 13:13:00 Test Item Value Reference Range Interpretation Comments COLOR (test code = YELLOW YELLOW COLU) CLARITY (test code = CLOUDY CLEAR A CLA) GLUCOSE UR (test code = TRACE NEGATIVE A UA GLUCOSE) BILI UR (test code = NEGATIVE NEGATIVE BILE) KETONES UR (test code = NEGATIVE NEGATIVE TAWNY) SP GRAVITY (test code = 1.023 1.005-1.030 SPGR) PH UR (test code = PH) 5.5 4.5-8.0 PROTEIN UR (test code = NEGATIVE NEGATIVE PU) UROBIL UR (test code = 0.2 EU/dL 0.2-1.0 UROQ) NITRITE UR (test code = NEGATIVE NEGATIVE NITRITE) BLOOD UR (test code = TRACE NEGATIVE A UA BLOOD) LEUK ES UR (test code = NEGATIVE NEGATIVE LEUK) WBC UR (test code = 0 /HPF 0-3 UWBC) RBC UR (test code = 1 /HPF 0-2 URBC) EPITH UR (test code = FEW /LPF NONE A UEPC) BACTERIA UR (test code FEW /HPF NONE A = UBACT) CAST UR (test code = /LPF NONE CAST) CRYSTAL UR (test code = URIC ACID MODERATE / NONE A CRYU) LPF MUCUS UR (test code = / HPF NONE MUC) AMORPH UR (test code = / HPF NONE MARICARMEN) TRICH UR (test code = /HPF NONE UTRICH) YEAST UR (test code = /HPF NONE UY) SPERM UR (test code = /HPF NONE USPERM) THYROID PANEL/SCREEN (TSH)2017-09-01 12:38:00 Test Item Value Reference Range Interpretation Comments TSH (test code = A57) 0.816 uIU/mL 0.358-3.740 BRAIN NATRIURETIC [id number] 12:34:00 Test Item Value Reference Range Interpretation Comments proBNP (test code = PBNP) 82 pg/mL 0-125 AMYLASE AND [id number] 12:25:00 Test Item Value Reference Range Interpretation Comments AMYLASE (test code = 10A) 34 U/L 28-100 LIPASE (test code = 60A) 112 IU/L 73-393 COMPREHENSIVE METABOLIC [id number] 12:25:00 Test Item Value Reference Range Interpretation Comments GLUCOSE (test code = 06D) 185 mg/dL 75-100 H SODIUM (test code = 01A) 137 mmol/L 136-145 POTASSIUM (test code = 01B) 4.1 mmol/L 3.6-5.1 CHLORIDE (test code = 04A) 105 mmol/L 98-107 CO2 (test code = 02A) 26 mmol/L 22-32 ANION GAP (test code = ANG) 10.1 mmol/L BUN (test code = 05D) 15 mg/dL 7-18 CREATININE (test code = 03E) 1.1 mg/dL 0.7-1.3 BUN/CREA (test code = BCR) 14 12-20 CALCIUM (test code = 09D) 8.2 mg/dL 8.3-9.5 L BILI TOTAL (test code = 11A) 0.8 mg/dL 0.2-1.0 PROTEIN (test code = 07D) 7.6 g/dL 6.4-8.2 ALBUMIN (test code = 08D) 3.9 g/dL 3.5-4.8 GLOBULIN (test code = GLB) 3.7 g/dL 1.5-3.8 ALB/GLOB (test code = AGRR) 1.1 1.0-2.6 ALK PHOS (test code = 35A) 70 IU/L 42-121 AST (test code = 30A) 20 IU/L <=42 ALT (test code = 31A) 35 IU/L <=78 [id number] 12:25:00 Test Item Value Reference Range Interpretation Comments MAGNESIUM (test code = 48A) 2.4 mg/dL 1.8-2.4 CARDIAC [id number] 12:23:00 Test Item Value Reference Range Interpretation Comments TROPONIN I (test code = A84) <0.015 ng/mL 0.000-0.045 CKMB (test code = A49) <1.0 ng/mL <=3.6 CPK (test code = 32A) 74 IU/L 39-308 PRO TIME AND [id number] 12:14:00 Test Item Value Reference Range Interpretation Comments PT (test code = 19.9 s 9.8-13.6 H TT) INR (test code = 1.7 INR) INRH (test code = SUGGESTED THERAPEUTIC INRH) RANGE FOR INR: 2.5 - 3.5 For Patients with Prosthetic Valves or Patients with recurrent Thromboembolic Events 2.0 - 3.0 For Most Other Applications PTT (test code = 45.1 s 20.2-38.0 H PTT) PTTH (test code = To monitor the PTTH) effectiveness of heparin, we offer the Anti-Xa (Heparin Assay). It can be used for either unfractionated or LMW Heparin. Order Code is ANTI-XA CBC (INCLUDES AUTOMATED DIFFERENTIAL)2017-09-01 12:09:00 Test Item Value Reference Range Interpretation Comments WBC (test code = WBC) 8.8 10\\S\\3/uL 4.5-11.0 RBC (test code = RBC) 5.67 10\\S\\6/uL 4.20-5.60 H HGB (test code = HBG) 17.9 g/dL 14.0-18.0 HCT (test code = HCT) 51.5 % 35.0-46.0 H MCV (test code = MCV) 90.8 fL 80.0-94.0 MCH (test code = MCH) 31.6 pg 27.0-31.0 H MCHC (test code = MCHC) 34.8 g/dL 32.0-36.0 RDW (test code = RDW) 13.8 % 11.5-14.5 PLT (test code = PLT) 277 10\\S\\3/uL 130-400 MPV (test code = MPV) 10.9 fL 9.4-12.4 NEUTROP # (test code = NE#) 5.9 10\\S\\3/uL 2.0-8.0 LYMPH # (test code = LY#) 1.9 10\\S\\3/uL 1.2-4.0 MONOCYTE # (test code = MO#) 0.4 10\\S\\3/uL 0.0-1.1 EOSINOPH # (test code = EO#) 0.3 10\\S\\3/uL 0.0-0.7 BASOPHIL # (test code = BA#) 0.1 10\\S\\3/uL 0.0-0.3 IG # (test code = IG#) 0.11 10\\S\\3/uL 0.00-0.06 H NRBC # (test code = NRBC#) 0.00 10\\S\\3/uL 0.00-0.01 NEUTROPH % (test code = NE%) 67.2 % 35.0-73.0 LYMPH % (test code = LY%) 22.0 % 20.0-55.0 MONO % (test code = MO%) 5.0 % 2.5-10.0 EOSINOPH % (test code = EO%) 3.2 % 0.0-5.0 BASOPHIL % (test code = BA%) 1.4 % 0.0-2.0 IG % (test code = IG%) 1.2 % 0.0-0.8 H NRBC% (test code = NRBC%) 0.0 % 0.0-0.2 MANDIFF (test code = MDIFF) NO NO RBC MORPH (test code = RBCMOR) NORMAL XR CHEST 1 VIEW [id number] 11:52:[id number]: XR CHEST 1 VIEW PORTABLEHISTORY: R00.2: PALPITATIONSCOMPARISON: NoneFINDINGS: The lungs are clear. No pleural effusion or pneumothorax. The cardiacsilhouette is within normal limits. No acuteosseous abnormalities.IMPRESSION:No acute cardiopulmonary disease.STOOL [id number] 14:30:00 Test Item Value Reference Range Interpretation Comments Fecal Leukocyte (test Rare 2(01/17/2012 N code = Fecal Leukocyte) 08:30:00) [facility] [id number] 14:30:00 Test Item Value Reference Range Interpretation Comments Occult Bld Stl (test Negative (01/17/2012 N code = Occult Bld Stl) 08:30:00) [id number] 14:30:00 Test Item Value Reference Range Interpretation Comments Culture: Stool (test code = Culture: Stool) [facility]2012-11-15 14:30:00 Test Item Value Reference Range Interpretation Comments Fecal Leukocyte (test Rare 2(01/17/2012 N code = Fecal Leukocyte) 08:30:00) [facility] [id number] 14:30:00 Test Item Value Reference Range Interpretation Comments Occult Bld Stl (test Negative (01/17/2012 N code = Occult Bld Stl) 08:30:00) [id number] 14:30:00 Test Item Value Reference Range Interpretation Comments Culture: Stool (test code = Culture: Stool) [facility] [id number] 14:30:00 Test Item Value Reference Range Interpretation Comments Fecal Leukocyte (test Rare 2(01/17/2012 N code = Fecal Leukocyte) 08:30:00) [facility] [id number] 14:30:00 Test Item Value Reference Range Interpretation Comments Occult Bld Stl (test Negative (01/17/2012 N code = Occult Bld Stl) 08:30:00) [facility]878[facility]-59 14:30:00 Test Item Value Reference Range Interpretation Comments Culture: Stool (test code = Culture: Stool) [facility]2012-11-15 14:30:00 Test Item Value Reference Range Interpretation Comments Fecal Leukocyte (test Rare 2(01/17/2012 N code = Fecal Leukocyte) 08:30:00) [facility]2012-11-15 14:30:00 Test Item Value Reference Range Interpretation Comments Occult Bld Stl (test Negative (01/17/2012 N code = Occult Bld Stl) 08:30:00) [facility]FcnhpjsLxhqidirbgkf0133-71-87 14:30:00 Test Item Value Reference Range Interpretation Comments Culture: Stool (test code = Culture: Stool) [facility]2012-11-15 14:30:00 Test Item Value Reference Range Interpretation Comments Fecal Leukocyte (test Rare 2(01/17/2012 N code = Fecal Leukocyte) 08:30:00) [facility]2012-11-15 14:30:00 Test Item Value Reference Range Interpretation Comments Occult Bld Stl (test Negative (01/17/2012 N code = Occult Bld Stl) 08:30:00) [facility]ballTvgvvxwZesthcdxvfcw1788-28-97 14:30:00 Test Item Value Reference Range Interpretation Comments Culture: Stool (test code = Culture: Stool) [facility]2012-11-15 14:30:00 Test Item Value Reference Range Interpretation Comments Fecal Leukocyte (test Rare 2(01/17/2012 N code = Fecal Leukocyte) 08:30:00) [facility]2012-11-15 14:30:00 Test Item Value Reference Range Interpretation Comments Occult Bld Stl (test Negative (01/17/2012 N code = Occult Bld Stl) 08:30:00) [facility]ballBzaygbhLehmrfekiwph5504-14-04 14:30:00 Test Item Value Reference Range Interpretation Comments Culture: Stool (test code = Culture: Stool) [facility]2012-11-15 14:30:00 Test Item Value Reference Range Interpretation Comments Fecal Leukocyte (test Rare 2(01/17/2012 N code = Fecal Leukocyte) 08:30:00) [facility]2012-11-15 14:30:00 Test Item Value Reference Range Interpretation Comments Occult Bld Stl (test Negative (01/17/2012 N code = Occult Bld Stl) 08:30:00) [facility]2012-11-15 14:30:00 Test Item Value Reference Range Interpretation Comments Fecal Leukocyte (test Rare 2(01/17/2012 N code = Fecal Leukocyte) 08:30:00) [facility]2012-11-15 14:30:00 Test Item Value Reference Range Interpretation Comments Occult Bld Stl (test Negative (01/17/2012 N code = Occult Bld Stl) 08:30:00) [facility]ballYnmmvyhCmuybuqchhoe5345-34-18 14:30:00 Test Item Value Reference Range Interpretation Comments Culture: Stool (test code = Culture: Stool) [facility]ballJaxyiqyHuipjembafqb9290-05-24 14:30:00 Test Item Value Reference Range Interpretation Comments Culture: Stool (test code = Culture: Stool) [facility]2012-11-15 14:30:00 Test Item Value Reference Range Interpretation Comments Fecal Leukocyte (test Rare 2(01/17/2012 N code = Fecal Leukocyte) 08:30:00) [facility]2012-11-15 14:30:00 Test Item Value Reference Range Interpretation Comments Occult Bld Stl (test Negative (01/17/2012 N code = Occult Bld Stl) 08:30:00) [facility]ballXvcjnizUkryfbkayezr6445-49-48 14:30:00 Test Item Value Reference Range Interpretation Comments Culture: Stool (test code = Culture: Stool) [facility]2012-11-15 14:30:00 Test Item Value Reference Range Interpretation Comments Fecal Leukocyte (test Rare 2(01/17/2012 N code = Fecal Leukocyte) 08:30:00) [facility]2012-11-15 14:30:00 Test Item Value Reference Range Interpretation Comments Occult Bld Stl (test Negative (01/17/2012 N code = Occult Bld Stl) 08:30:00) [facility]ballQarterpBsfofyxhdzbl3448-11-94 14:30:00 Test Item Value Reference Range Interpretation Comments Culture: Stool (test code = Culture: Stool) [facility]2012-11-15 14:30:00 Test Item Value Reference Range Interpretation Comments Fecal Leukocyte (test Rare 2(01/17/2012 N code = Fecal Leukocyte) 08:30:00) [facility]2012-11-15 14:30:00 Test Item Value Reference Range Interpretation Comments Occult Bld Stl (test Negative (01/17/2012 N code = Occult Bld Stl) 08:30:00) [facility]ballSdegnweNnvnaqvzmceo1170-30-14 14:30:00 Test Item Value Reference Range Interpretation Comments Culture: Stool (test code = Culture: Stool) [facility]2012-11-15 14:30:00 Test Item Value Reference Range Interpretation Comments Fecal Leukocyte (test Rare 2(01/17/2012 N code = Fecal Leukocyte) 08:30:00) [facility]2012-11-15 14:30:00 Test Item Value Reference Range Interpretation Comments Occult Bld Stl (test Negative (01/17/2012 N code = Occult Bld Stl) 08:30:00) [facility]ballHkyasgdBonwswwepggc9306-01-98 14:30:00 Test Item Value Reference Range Interpretation Comments Culture: Stool (test code = Culture: Stool) [facility]2012-11-15 14:30:00 Test Item Value Reference Range Interpretation Comments Fecal Leukocyte (test Rare 2(01/17/2012 N code = Fecal Leukocyte) 08:30:00) [facility]2012-11-15 14:30:00 Test Item Value Reference Range Interpretation Comments Occult Bld Stl (test Negative (01/17/2012 N code = Occult Bld Stl) 08:30:00) [facility]ballZxwdxdiIrnrcyhwyimf1149-05-34 14:30:00 Test Item Value Reference Range Interpretation Comments Culture: Stool (test code = Culture: Stool) [facility]2012-11-15 14:30:00 Test Item Value Reference Range Interpretation Comments Fecal Leukocyte (test Rare 2(01/17/2012 N code = Fecal Leukocyte) 08:30:00) [facility]2012-11-15 14:30:00 Test Item Value Reference Range Interpretation Comments Occult Bld Stl (test Negative (01/17/2012 N code = Occult Bld Stl) 08:30:00) [facility]ballPhcrcvhSjhhpcpzmxey9458-91-58 14:30:00 Test Item Value Reference Range Interpretation Comments Culture: Stool (test code = Culture: Stool) [facility]2012-11-15 14:30:00 Test Item Value Reference Range Interpretation Comments Fecal Leukocyte (test Rare 2(01/17/2012 N code = Fecal Leukocyte) 08:30:00) [facility]2012-11-15 14:30:00 Test Item Value Reference Range Interpretation Comments Occult Bld Stl (test Negative (01/17/2012 N code = Occult Bld Stl) 08:30:00) [facility]ballPnbbbtqExkcsbqtwdtq4921-16-09 14:30:00 Test Item Value Reference Range Interpretation Comments Culture: Stool (test code = Culture: Stool) [facility]2012-11-15 14:30:00 Test Item Value Reference Range Interpretation Comments Fecal Leukocyte (test Rare 2(01/17/2012 N code = Fecal Leukocyte) 08:30:00) [facility]2012-11-15 14:30:00 Test Item Value Reference Range Interpretation Comments Occult Bld Stl (test Negative (01/17/2012 N code = Occult Bld Stl) 08:30:00) [facility]ballMhndbjfPiqfmxaaywmb9186-06-33 14:30:00 Test Item Value Reference Range Interpretation Comments Culture: Stool (test code = Culture: Stool) [facility]2012-11-15 14:30:00 Test Item Value Reference Range Interpretation Comments Fecal Leukocyte (test Rare 2(01/17/2012 N code = Fecal Leukocyte) 08:30:00) [facility]2012-11-15 14:30:00 Test Item Value Reference Range Interpretation Comments Occult Bld Stl (test Negative (01/17/2012 N code = Occult Bld Stl) 08:30:00) [facility]ballIhmyrryIcwtkslrdxkp8066-24-76 14:30:00 Test Item Value Reference Range Interpretation Comments Culture: Stool (test code = Culture: Stool) [facility]2012-11-15 14:30:00 Test Item Value Reference Range Interpretation Comments Fecal Leukocyte (test Rare 2(01/17/2012 N code = Fecal Leukocyte) 08:30:00) [facility]2012-11-15 14:30:00 Test Item Value Reference Range Interpretation Comments Occult Bld Stl (test Negative (01/17/2012 N code = Occult Bld Stl) 08:30:00) [facility]ballOucwrwwNgvnhzeqeznj6831-08-06 14:30:00 Test Item Value Reference Range Interpretation Comments Culture: Stool (test code = Culture: Stool) [facility]2012-11-15 14:30:00 Test Item Value Reference Range Interpretation Comments Fecal Leukocyte (test Rare 2(01/17/2012 N code = Fecal Leukocyte) 08:30:00) [facility]2012-11-15 14:30:00 Test Item Value Reference Range Interpretation Comments Occult Bld Stl (test Negative (01/17/2012 N code = Occult Bld Stl) 08:30:00) [facility]ballJudzlkvXorggsgtaahr4389-57-90 14:30:00 Test Item Value Reference Range Interpretation Comments Culture: Stool (test code = Culture: Stool) [facility]2012-11-15 14:30:00 Test Item Value Reference Range Interpretation Comments Fecal Leukocyte (test Rare 2(01/17/2012 N code = Fecal Leukocyte) 08:30:00) [facility]2012-11-15 14:30:00 Test Item Value Reference Range Interpretation Comments Occult Bld Stl (test Negative (01/17/2012 N code = Occult Bld Stl) 08:30:00) [facility]ballJznxvkfRdxqxqgxssab4039-70-48 14:30:00 Test Item Value Reference Range Interpretation Comments Culture: Stool (test code = Culture: Stool) [facility]OqfxikbDEUESYTTZ9853-91-12 11:10:00 Test Item Value Reference Range Interpretation Comments eGFR (test code = eGFR) 71 [facility] CenterEtkusglJXCXQFKUX9763-72-79 11:10:00 Test Item Value Reference Range Interpretation Comments CO2 (test code = CO2) 29 24-32 N [facility] CenterMqhegdaNYULOHVVH2375-22-11 11:10:00 Test Item Value Reference Range Interpretation Comments Glucose Lvl (test code = Glucose Lvl) 120 70-99 H [facility] CenterFwhwjtoUBRHLAOBL9446-39-52 11:10:00 Test Item Value Reference Range Interpretation Comments Chloride Lvl (test code = Chloride Lvl) 103 95-109 N [facility] CenterYretdlkJSUMACUGD0066-29-44 11:10:00 Test Item Value Reference Range Interpretation Comments Potassium Lvl (test code = Potassium 3.9 3.5-5.1 N Lvl) [facility] CenterRmthftnPAEPRUYZR8642-84-61 11:10:00 Test Item Value Reference Range Interpretation Comments Sodium Lvl (test code = Sodium Lvl) 139 135-145 N [facility] CenterSvwkujePVPKOMKTD1188-64-91 11:10:00 Test Item Value Reference Range Interpretation Comments Creatinine Lvl (test code = Creatinine 1.2 0.5-1.4 N Lvl) [facility] CenterZabgmbiTZMLWKOGQ7921-24-68 11:10:00 Test Item Value Reference Range Interpretation Comments Calcium Lvl (test code = Calcium Lvl) 8.2 8.5-10.5 L [facility] CenterSyufmngGDHNPYVLM2793-02-30 11:10:00 Test Item Value Reference Range Interpretation Comments BUN (test code = BUN) 12 7-22 N [facility] CenterBhrftpdKSSWPLSGD4576-27-35 11:10:00 Test Item Value Reference Range Interpretation Comments AGAP (test code = AGAP) 10.9 10.0-20.0 N [facility] CenterMjdaqcxTUULGBHJML0291-40-24 11:10:00 Test Item Value Reference Range Interpretation Comments Segs (test code = Segs) 61.0 45.0-75.0 N [facility] CenterDiitmsvBWQVJZKERE0835-83-47 11:10:00 Test Item Value Reference Range Interpretation Comments Basophils (test code = 1.0 See_Comment N [Aut omated message] The Basophils) system which ge nerated this result tra nsmitted reference range : <=1.0. The reference r caitlin was not used to int erpret this result as normal/abnormal . [facility] CenterIbwfdvpPFOICMHLHI8249-66-13 11:10:00 Test Item Value Reference Range Interpretation Comments Eosinophils (test code = 1.0 See_Comment N [A utomated message] The Eosinophils) system which ge nerated this result tra nsmitted reference range : <=4.0. The reference r caitlin was not used to int erpret this result as normal/abnormal . [facility] CenterVczanquTUBWYRXQBD9254-68-81 11:10:00 Test Item Value Reference Range Interpretation Comments Large Plt (test code = Slight *ABN*(01/15/2012 A Large Plt) 05:10:00) [facility] CenterLofrgriCIGXMUMRCL2959-21-77 11:10:00 Test Item Value Reference Range Interpretation Comments Lymphocytes (test code = Lymphocytes) 13.0 20.0-40.0 L [facility] CenterKsrwfwlJLOQVNGOHA6913-79-53 11:10:00 Test Item Value Reference Range Interpretation Comments Monocytes (test code = Monocytes) 12.0 2.0-12.0 N [facility] CenterTybvgfyVYDIXCXBZS5697-88-86 11:10:00 Test Item Value Reference Range Interpretation Comments Polychrom (test code = Slight (01/15/2012 N Polychrom) 05:10:00) [facility] CenterPfsdaizGRNJQVNJJX2202-35-96 11:10:00 Test Item Value Reference Range Interpretation Comments Tot Cell Ct (test code = Tot Cell Ct) 100 1 [facility] CenterLkwpgxvFNTEXOCONT4110-49-47 11:10:00 Test Item Value Reference Range Interpretation Comments Atypical Lymphs (test code = Atypical 0.0 N Lymphs) [facility] CenterXubvivuDFLKPEAIGV1251-69-64 11:10:00 Test Item Value Reference Range Interpretation Comments Basophils # (test code 0.1 See_Comment N [Aut omated message] The = Basophils #) system which generated this result tra nsmitted reference range : <=0.2. The reference r caitlin was not used to int erpret this result as normal/abnormal . [facility] CenterBcygaapFOYKLULGAG6711-15-81 11:10:00 Test Item Value Reference Range Interpretation Comments Bands (test code = 12.0 See_Comment H [Automat ed message] The Bands) system which ge nerated this result transmit pradeep reference range : <=11.0. The reference r caitlin was not used to interpr et this result as maximus l/abnormal. [facility] CenterIplfbwpXZLURLBEKX5962-70-81 11:10:00 Test Item Value Reference Range Interpretation Comments Lymphocytes # (test code = Lymphocytes 0.9 1.0-5.5 L #) [facility] CenterNyovdtqBRMSFFFEBS5171-60-29 11:10:00 Test Item Value Reference Range Interpretation Comments Eosinophils # (test code 0.1 See_Comment N [A utomated message] The = Eosinophils #) system whic h generated this result tra nsmitted reference range : <=0.5. The reference r caitlin was not used to int erpret this result as normal/abnormal . [facility] CenterFgjfwgwRMNCNCADGY1277-19-33 11:10:00 Test Item Value Reference Range Interpretation Comments Segs-Bands # (test code = Segs-Bands #) 5.2 1.5-8.1 N [facility] CenterWdiroxtCWUZRZTKIW5315-78-20 11:10:00 Test Item Value Reference Range Interpretation Comments Monocytes # (test code 0.9 See_Comment H [Aut omated message] The = Monocytes #) system which generated this result tra nsmitted reference range : <=0.8. The reference r caitlin was not used to int erpret this result as normal/abnormal . [facility] CenterZfsvuwrGFPGPHFBXD5065-54-41 11:10:00 Test Item Value Reference Range Interpretation Comments RDW (test code = RDW) 13.8 11.5-14.5 N [facility] CenterVeddiljZCWRHTBIJD9616-49-42 11:10:00 Test Item Value Reference Range Interpretation Comments MPV (test code = MPV) 8.6 7.4-10.4 N [facility] CenterQmkegntDEBQAETUWD7276-77-85 11:10:00 Test Item Value Reference Range Interpretation Comments Platelet (test code = Platelet) 306 133-450 N [facility] CenterGyucwngLDDQRNPRDD5911-69-23 11:10:00 Test Item Value Reference Range Interpretation Comments MCV (test code = MCV) 94.3 80.0-94.0 H [facility] CenterTzgjoctTKXGJIVGLH5199-75-33 11:10:00 Test Item Value Reference Range Interpretation Comments MCH (test code = MCH) 32.5 pg 27.0-31.0 H [facility] CenterBoqsdczKUVMQGJPSX3612-02-20 11:10:00 Test Item Value Reference Range Interpretation Comments MCHC (test code = MCHC) 34.5 32.0-36.0 N [facility] CenterPdyabqjVRKBNQBNYM0830-83-92 11:10:00 Test Item Value Reference Range Interpretation Comments Hct (test code = Hct) 43.1 42.0-54.0 N [facility] CenterTgjuaclGNLHKVCVFU0547-03-65 11:10:00 Test Item Value Reference Range Interpretation Comments Hgb (test code = Hgb) 14.8 14.0-18.0 N [facility] CenterKisbfrcQVVADLAOBK8198-92-90 11:10:00 Test Item Value Reference Range Interpretation Comments WBC (test code = WBC) 7.1 3.7-10.4 N [facility] CenterFprljujFHRELIOKBN2201-08-18 11:10:00 Test Item Value Reference Range Interpretation Comments RBC (test code = RBC) 4.57 4.70-6.10 L [facility] CenterMwpyejcNIOQSHWOC8711-79-62 11:10:00 Test Item Value Reference Range Interpretation Comments eGFR (test code = eGFR) 71 [facility] CenterTbwmfzcLSQFUDQQH0394-87-47 11:10:00 Test Item Value Reference Range Interpretation Comments CO2 (test code = CO2) 29 24-32 N [facility] CenterLwebrviESNRQQQDM2283-75-85 11:10:00 Test Item Value Reference Range Interpretation Comments Glucose Lvl (test code = Glucose Lvl) 120 70-99 H [facility] CenterYwzcsyiBZXKAFSGK5713-11-82 11:10:00 Test Item Value Reference Range Interpretation Comments Chloride Lvl (test code = Chloride Lvl) 103 95-109 N [facility] CenterClgawemQYPCKRYRD7658-85-92 11:10:00 Test Item Value Reference Range Interpretation Comments Potassium Lvl (test code = Potassium 3.9 3.5-5.1 N Lvl) [facility] CenterFnnrmwmYITFPGQWD8608-48-13 11:10:00 Test Item Value Reference Range Interpretation Comments Sodium Lvl (test code = Sodium Lvl) 139 135-145 N [facility] CenterDxldmbyZVZDEZBZQ4679-65-82 11:10:00 Test Item Value Reference Range Interpretation Comments Creatinine Lvl (test code = Creatinine 1.2 0.5-1.4 N Lvl) [facility] CenterOgappzkEDIDZVVOD2750-92-09 11:10:00 Test Item Value Reference Range Interpretation Comments Calcium Lvl (test code = Calcium Lvl) 8.2 8.5-10.5 L [facility] CenterBlhxxsqVDDIWWIHP8595-14-40 11:10:00 Test Item Value Reference Range Interpretation Comments BUN (test code = BUN) 12 7-22 N [facility] CenterMjmgoboBJJCTWHKX9109-86-98 11:10:00 Test Item Value Reference Range Interpretation Comments AGAP (test code = AGAP) 10.9 10.0-20.0 N [facility] CenterAfvfkzfTDJIIYKSCB1776-35-99 11:10:00 Test Item Value Reference Range Interpretation Comments Segs (test code = Segs) 61.0 45.0-75.0 N [facility] CenterYcoqrcgEITJTHPMWO8278-67-93 11:10:00 Test Item Value Reference Range Interpretation Comments Basophils (test code = 1.0 See_Comment N [Aut omated message] The Basophils) system which ge nerated this result tra nsmitted reference range : <=1.0. The reference r caitlin was not used to int erpret this result as normal/abnormal . [facility] CenterXulqlkqVWJKKPNDID1969-74-06 11:10:00 Test Item Value Reference Range Interpretation Comments Eosinophils (test code = 1.0 See_Comment N [A utomated message] The Eosinophils) system which ge nerated this result tra nsmitted reference range : <=4.0. The reference r caitlin was not used to int erpret this result as normal/abnormal . [facility] CenterTqefvjvOECHACBKLS9885-37-77 11:10:00 Test Item Value Reference Range Interpretation Comments Large Plt (test code = Slight *ABN*(01/15/2012 A Large Plt) 05:10:00) [facility] CenterLhkexscNAFLWLNMCV0526-45-12 11:10:00 Test Item Value Reference Range Interpretation Comments Lymphocytes (test code = Lymphocytes) 13.0 20.0-40.0 L [facility] CenterIbxaimfCLVCMIUQUO8422-23-68 11:10:00 Test Item Value Reference Range Interpretation Comments Monocytes (test code = Monocytes) 12.0 2.0-12.0 N [facility] CenterXnppfnnAEGIQQRQWV3111-72-86 11:10:00 Test Item Value Reference Range Interpretation Comments Polychrom (test code = Slight (01/15/2012 N Polychrom) 05:10:00) [facility] CenterUfscwrtKMGLEUJGPO8000-88-51 11:10:00 Test Item Value Reference Range Interpretation Comments Tot Cell Ct (test code = Tot Cell Ct) 100 1 [facility] CenterIwtyvxcLEBQPQJUBW7443-60-25 11:10:00 Test Item Value Reference Range Interpretation Comments Atypical Lymphs (test code = Atypical 0.0 N Lymphs) [facility] CenterMgfubteJAOFUFONMC8793-15-19 11:10:00 Test Item Value Reference Range Interpretation Comments Basophils # (test code 0.1 See_Comment N [Aut omated message] The = Basophils #) system which generated this result tra nsmitted reference range : <=0.2. The reference r caitlin was not used to int erpret this result as normal/abnormal . [facility] CenterMnrndhyGVFAFKQMXV4715-29-62 11:10:00 Test Item Value Reference Range Interpretation Comments Bands (test code = 12.0 See_Comment H [Automat ed message] The Bands) system which ge nerated this result transmit pradeep reference range : <=11.0. The reference r caitlin was not used to interpr et this result as maximus l/abnormal. [facility] CenterYqquvbkVBFNFZEEOR7386-87-22 11:10:00 Test Item Value Reference Range Interpretation Comments Lymphocytes # (test code = Lymphocytes 0.9 1.0-5.5 L #) [facility] CenterPffcvofZAMUABXPYX1708-00-48 11:10:00 Test Item Value Reference Range Interpretation Comments Eosinophils # (test code 0.1 See_Comment N [A utomated message] The = Eosinophils #) system whic h generated this result tra nsmitted reference range : <=0.5. The reference r caitlin was not used to int erpret this result as normal/abnormal . [facility] CenterKprjwzyWJTBPSIGQJ3519-52-17 11:10:00 Test Item Value Reference Range Interpretation Comments Segs-Bands # (test code = Segs-Bands #) 5.2 1.5-8.1 N [facility] CenterRkqfqfzDQEFZIUFAQ3136-40-48 11:10:00 Test Item Value Reference Range Interpretation Comments Monocytes # (test code 0.9 See_Comment H [Aut omated message] The = Monocytes #) system which generated this result tra nsmitted reference range : <=0.8. The reference r caitlin was not used to int erpret this result as normal/abnormal . [facility] CenterKemdnsgBHCCLZUTVA3096-31-57 11:10:00 Test Item Value Reference Range Interpretation Comments RDW (test code = RDW) 13.8 11.5-14.5 N [facility] CenterZmsrhlfWSGTMEZELS4199-92-45 11:10:00 Test Item Value Reference Range Interpretation Comments MPV (test code = MPV) 8.6 7.4-10.4 N [facility] CenterNcugizlEHGYNESLVU3394-29-50 11:10:00 Test Item Value Reference Range Interpretation Comments Platelet (test code = Platelet) 306 133-450 N [facility] CenterLdcckysCRAHDSWNFY7489-17-08 11:10:00 Test Item Value Reference Range Interpretation Comments MCV (test code = MCV) 94.3 80.0-94.0 H [facility] CenterFwmmjjrKSSXQQZYDP2182-78-08 11:10:00 Test Item Value Reference Range Interpretation Comments MCH (test code = MCH) 32.5 pg 27.0-31.0 H [facility] CenterSdotakiWRMCYEPCID2384-88-61 11:10:00 Test Item Value Reference Range Interpretation Comments MCHC (test code = MCHC) 34.5 32.0-36.0 N [facility] CenterGkadmedTHMLPZSFHJ9752-86-61 11:10:00 Test Item Value Reference Range Interpretation Comments Hct (test code = Hct) 43.1 42.0-54.0 N [facility] CenterAvnxesfIPEGKAJJXD6200-87-04 11:10:00 Test Item Value Reference Range Interpretation Comments Hgb (test code = Hgb) 14.8 14.0-18.0 N [facility] CenterRzxpzarCSSIRUORDK6470-79-38 11:10:00 Test Item Value Reference Range Interpretation Comments WBC (test code = WBC) 7.1 3.7-10.4 N [facility] CenterYrbmzyuBLPFFPLPYK4851-05-20 11:10:00 Test Item Value Reference Range Interpretation Comments RBC (test code = RBC) 4.57 4.70-6.10 L [facility] CenterHwjlqunZOVXZWWYW0384-63-48 11:10:00 Test Item Value Reference Range Interpretation Comments eGFR (test code = eGFR) 71 [facility] CenterEgglbtwOGCTSZXQU4051-50-59 11:10:00 Test Item Value Reference Range Interpretation Comments CO2 (test code = CO2) 29 24-32 N [facility] CenterKsunfowUXQNBFUXC6930-29-52 11:10:00 Test Item Value Reference Range Interpretation Comments Glucose Lvl (test code = Glucose Lvl) 120 70-99 H [facility] CenterWczarjiBBYNLXUXU7147-73-12 11:10:00 Test Item Value Reference Range Interpretation Comments Chloride Lvl (test code = Chloride Lvl) 103 95-109 N [facility] CenterFxacovyGEDPIOBSP5294-31-73 11:10:00 Test Item Value Reference Range Interpretation Comments Potassium Lvl (test code = Potassium 3.9 3.5-5.1 N Lvl) [facility] CenterIwfceuiNWPVMIPFM9613-72-35 11:10:00 Test Item Value Reference Range Interpretation Comments Sodium Lvl (test code = Sodium Lvl) 139 135-145 N [facility] CenterRwdhccaWCHCNJPMC9605-73-79 11:10:00 Test Item Value Reference Range Interpretation Comments Creatinine Lvl (test code = Creatinine 1.2 0.5-1.4 N Lvl) [facility] CenterHpbrqpgPDCRMLHBO2357-45-31 11:10:00 Test Item Value Reference Range Interpretation Comments Calcium Lvl (test code = Calcium Lvl) 8.2 8.5-10.5 L [facility] CenterJlxylrlRDUTWNGGU5898-34-78 11:10:00 Test Item Value Reference Range Interpretation Comments BUN (test code = BUN) 12 7-22 N [facility] CenterCydjomsIBXTVMVOP1998-62-62 11:10:00 Test Item Value Reference Range Interpretation Comments AGAP (test code = AGAP) 10.9 10.0-20.0 N [facility] CenterEetinumYOHFVWIHVD8933-49-23 11:10:00 Test Item Value Reference Range Interpretation Comments Segs (test code = Segs) 61.0 45.0-75.0 N [facility] CenterOxpynjgKPNTORDMRR9116-14-99 11:10:00 Test Item Value Reference Range Interpretation Comments Basophils (test code = 1.0 See_Comment N [Aut omated message] The Basophils) system which ge nerated this result tra nsmitted reference range : <=1.0. The reference r caitlin was not used to int erpret this result as normal/abnormal . [facility] CenterQfcscmzDMIETROQAD2852-90-53 11:10:00 Test Item Value Reference Range Interpretation Comments Eosinophils (test code = 1.0 See_Comment N [A utomated message] The Eosinophils) system which ge nerated this result tra nsmitted reference range : <=4.0. The reference r caitlin was not used to int erpret this result as normal/abnormal . [facility] CenterPzqkikpXIFRKDABFH7829-52-62 11:10:00 Test Item Value Reference Range Interpretation Comments Large Plt (test code = Slight *ABN*(01/15/2012 A Large Plt) 05:10:00) [facility] CenterSsqgkcoNIIPXYVEYM9239-00-98 11:10:00 Test Item Value Reference Range Interpretation Comments Lymphocytes (test code = Lymphocytes) 13.0 20.0-40.0 L [facility] CenterElzxlppCDGWDBXDLQ9132-56-73 11:10:00 Test Item Value Reference Range Interpretation Comments Monocytes (test code = Monocytes) 12.0 2.0-12.0 N [facility] CenterZlrxvkqCKRXDZDYXY2840-65-49 11:10:00 Test Item Value Reference Range Interpretation Comments Polychrom (test code = Slight (01/15/2012 N Polychrom) 05:10:00) [facility] CenterYxznbamWDMXWNIFWT3861-39-88 11:10:00 Test Item Value Reference Range Interpretation Comments Tot Cell Ct (test code = Tot Cell Ct) 100 1 [facility] CenterVjhbazzRCPMETUGPV7295-86-43 11:10:00 Test Item Value Reference Range Interpretation Comments Atypical Lymphs (test code = Atypical 0.0 N Lymphs) [facility] CenterIuxacgaSDOCVEIWBE1505-80-26 11:10:00 Test Item Value Reference Range Interpretation Comments Basophils # (test code 0.1 See_Comment N [Aut omated message] The = Basophils #) system which generated this result tra nsmitted reference range : <=0.2. The reference r caitlin was not used to int erpret this result as normal/abnormal . [facility] CenterJakttemKWJJJBVZDI0417-81-97 11:10:00 Test Item Value Reference Range Interpretation Comments Bands (test code = 12.0 See_Comment H [Automat ed message] The Bands) system which ge nerated this result transmit pradeep reference range : <=11.0. The reference r caitlin was not used to interpr et this result as maximus l/abnormal. [facility] CenterXlcmpqmKIFXHGBTFL8674-71-96 11:10:00 Test Item Value Reference Range Interpretation Comments Lymphocytes # (test code = Lymphocytes 0.9 1.0-5.5 L #) [facility] CenterUikycgbLPLQLCSDPP8991-50-18 11:10:00 Test Item Value Reference Range Interpretation Comments Eosinophils # (test code 0.1 See_Comment N [A utomated message] The = Eosinophils #) system whic h generated this result tra nsmitted reference range : <=0.5. The reference r caitlin was not used to int erpret this result as normal/abnormal . [facility] CenterYgsnlntATJCDWXXWL6866-45-33 11:10:00 Test Item Value Reference Range Interpretation Comments Segs-Bands # (test code = Segs-Bands #) 5.2 1.5-8.1 N [facility] CenterEafsztaJBHUQYNGXV8694-23-79 11:10:00 Test Item Value Reference Range Interpretation Comments Monocytes # (test code 0.9 See_Comment H [Aut omated message] The = Monocytes #) system which generated this result tra nsmitted reference range : <=0.8. The reference r caitlin was not used to int erpret this result as normal/abnormal . [facility] CenterXtlizqzGAUZNMFGGQ9290-62-37 11:10:00 Test Item Value Reference Range Interpretation Comments RDW (test code = RDW) 13.8 11.5-14.5 N [facility] CenterQkkzezgGWPAIIPMTN1004-52-27 11:10:00 Test Item Value Reference Range Interpretation Comments MPV (test code = MPV) 8.6 7.4-10.4 N [facility] CenterEewgbcaIONIXCLBTI2917-10-56 11:10:00 Test Item Value Reference Range Interpretation Comments Platelet (test code = Platelet) 306 133-450 N [facility] CenterRbxgaacOHOTGSFHNW4313-99-49 11:10:00 Test Item Value Reference Range Interpretation Comments MCV (test code = MCV) 94.3 80.0-94.0 H [facility] CenterOjysniaHTYMGFCMBK3145-11-50 11:10:00 Test Item Value Reference Range Interpretation Comments MCH (test code = MCH) 32.5 pg 27.0-31.0 H [facility] CenterPqlxdcaPFRWHOTYTE4352-51-10 11:10:00 Test Item Value Reference Range Interpretation Comments MCHC (test code = MCHC) 34.5 32.0-36.0 N [facility] CenterOgzruxoTMWOQPBKAP3527-83-01 11:10:00 Test Item Value Reference Range Interpretation Comments Hct (test code = Hct) 43.1 42.0-54.0 N [facility] CenterXunbgziUJBBEDQNVA1832-64-42 11:10:00 Test Item Value Reference Range Interpretation Comments Hgb (test code = Hgb) 14.8 14.0-18.0 N [facility] CenterSejswkePHEPZWRKKO7279-45-53 11:10:00 Test Item Value Reference Range Interpretation Comments WBC (test code = WBC) 7.1 3.7-10.4 N [facility] CenterAinywzwESAAGHUXZY5603-53-75 11:10:00 Test Item Value Reference Range Interpretation Comments RBC (test code = RBC) 4.57 4.70-6.10 L [facility] CenterGazajshGTLIGPYRF6037-44-47 11:10:00 Test Item Value Reference Range Interpretation Comments eGFR (test code = eGFR) 71 [facility] CenterAesuaqqMPBCGIWJB0532-23-41 11:10:00 Test Item Value Reference Range Interpretation Comments CO2 (test code = CO2) 29 24-32 N [facility] CenterGiyzvwaYCJPUTFNI7814-80-17 11:10:00 Test Item Value Reference Range Interpretation Comments Glucose Lvl (test code = Glucose Lvl) 120 70-99 H [facility] CenterWyktmomYRCPUEZTU6155-78-47 11:10:00 Test Item Value Reference Range Interpretation Comments Chloride Lvl (test code = Chloride Lvl) 103 95-109 N [facility] CenterDntmfpcLYLYCYZSN2681-04-86 11:10:00 Test Item Value Reference Range Interpretation Comments Potassium Lvl (test code = Potassium 3.9 3.5-5.1 N Lvl) [facility] CenterNlgzwgwAFNSHTKLW2495-90-87 11:10:00 Test Item Value Reference Range Interpretation Comments Sodium Lvl (test code = Sodium Lvl) 139 135-145 N [facility] CenterShtpythZMBZSIWGH7977-43-81 11:10:00 Test Item Value Reference Range Interpretation Comments Creatinine Lvl (test code = Creatinine 1.2 0.5-1.4 N Lvl) [facility] CenterCdzxjjuQRKOPCQDU7978-93-06 11:10:00 Test Item Value Reference Range Interpretation Comments Calcium Lvl (test code = Calcium Lvl) 8.2 8.5-10.5 L [facility] CenterDfnruhtBZVFTTOSY9119-22-75 11:10:00 Test Item Value Reference Range Interpretation Comments BUN (test code = BUN) 12 7-22 N [facility] CenterNuuydzkPOHETWIOR0688-56-85 11:10:00 Test Item Value Reference Range Interpretation Comments AGAP (test code = AGAP) 10.9 10.0-20.0 N [facility] CenterZmwshfdSIUPTMRUUU1264-10-81 11:10:00 Test Item Value Reference Range Interpretation Comments Segs (test code = Segs) 61.0 45.0-75.0 N [facility] CenterGawzpyhKKBLWUANWA4386-06-95 11:10:00 Test Item Value Reference Range Interpretation Comments Basophils (test code = 1.0 See_Comment N [Aut omated message] The Basophils) system which nerated this result tra nsmitted reference range : <=1.0. The reference r caitlin was not used to int erpret this result as normal/abnormal . [facility] CenterEkprzapWPZGOYMRGL8091-37-93 11:10:00 Test Item Value Reference Range Interpretation Comments Eosinophils (test code = 1.0 See_Comment N [A utomated message] The Eosinophils) system which ge nerated this result tra nsmitted reference range : <=4.0. The reference r caitlin was not used to int erpret this result as normal/abnormal . [facility] CenterVgwktbtZDWZZKIGJZ1335-78-31 11:10:00 Test Item Value Reference Range Interpretation Comments Large Plt (test code = Slight *ABN*(01/15/2012 A Large Plt) 05:10:00) [facility] CenterAjarsfgVXFOLCJZGM7365-10-67 11:10:00 Test Item Value Reference Range Interpretation Comments Lymphocytes (test code = Lymphocytes) 13.0 20.0-40.0 L [facility] CenterZwpkbnlZWZSTAXLPT0918-40-08 11:10:00 Test Item Value Reference Range Interpretation Comments Monocytes (test code = Monocytes) 12.0 2.0-12.0 N [facility] CenterEbhydliNFXCNRFASC9397-96-18 11:10:00 Test Item Value Reference Range Interpretation Comments Polychrom (test code = Slight (01/15/2012 N Polychrom) 05:10:00) [facility] CenterZbvpjobFHSNPXASLJ9490-71-30 11:10:00 Test Item Value Reference Range Interpretation Comments Tot Cell Ct (test code = Tot Cell Ct) 100 1 [facility] CenterXdpnzidVHCNORGXGB5369-31-10 11:10:00 Test Item Value Reference Range Interpretation Comments Atypical Lymphs (test code = Atypical 0.0 N Lymphs) [facility] CenterKleyprbUOXKYSSVZG3052-93-58 11:10:00 Test Item Value Reference Range Interpretation Comments Basophils # (test code 0.1 See_Comment N [Aut omated message] The = Basophils #) system which generated this result tra nsmitted reference range : <=0.2. The reference r caitlin was not used to int erpret this result as normal/abnormal . [facility] CenterCmkmxvoPHNCUIWJME1168-04-12 11:10:00 Test Item Value Reference Range Interpretation Comments Bands (test code = 12.0 See_Comment H [Automat ed message] The Bands) system which ge nerated this result transmit pradeep reference range : <=11.0. The reference r caitlin was not used to interpr et this result as maximus l/abnormal. [facility] CenterPpbxxbtZOIPNLGWYZ1220-77-55 11:10:00 Test Item Value Reference Range Interpretation Comments Lymphocytes # (test code = Lymphocytes 0.9 1.0-5.5 L #) [facility] CenterHnbclugXSONLORYFO4461-83-69 11:10:00 Test Item Value Reference Range Interpretation Comments Eosinophils # (test code 0.1 See_Comment N [A utomated message] The = Eosinophils #) system whic h generated this result tra nsmitted reference range : <=0.5. The reference r caitlin was not used to int erpret this result as normal/abnormal . [facility] CenterKtiuanrNMMAGBOZOY4963-47-60 11:10:00 Test Item Value Reference Range Interpretation Comments Segs-Bands # (test code = Segs-Bands #) 5.2 1.5-8.1 N [facility] CenterXqzhqjaLEWVRMUYZJ6944-49-87 11:10:00 Test Item Value Reference Range Interpretation Comments Monocytes # (test code 0.9 See_Comment H [Aut omated message] The = Monocytes #) system which generated this result tra nsmitted reference range : <=0.8. The reference r caitlin was not used to int erpret this result as normal/abnormal . [facility] CenterMsdhrtwVRIXUBLOPG4455-70-44 11:10:00 Test Item Value Reference Range Interpretation Comments RDW (test code = RDW) 13.8 11.5-14.5 N [facility] CenterGzhqxniLYBUHHNREK8036-29-51 11:10:00 Test Item Value Reference Range Interpretation Comments MPV (test code = MPV) 8.6 7.4-10.4 N [facility] CenterJvfumdvFTXMNDYIHO1839-24-37 11:10:00 Test Item Value Reference Range Interpretation Comments Platelet (test code = Platelet) 306 133-450 N [facility] CenterKykbknbBLMRWVVJMU0990-10-16 11:10:00 Test Item Value Reference Range Interpretation Comments MCV (test code = MCV) 94.3 80.0-94.0 H [facility] CenterXafeqycVYQTGTAKCG0987-38-44 11:10:00 Test Item Value Reference Range Interpretation Comments MCH (test code = MCH) 32.5 pg 27.0-31.0 H [facility] CenterZenhbcgSVRRFZJKQA3071-48-82 11:10:00 Test Item Value Reference Range Interpretation Comments MCHC (test code = MCHC) 34.5 32.0-36.0 N [facility] CenterXukkkdxPDKDIDJNFZ1939-73-21 11:10:00 Test Item Value Reference Range Interpretation Comments Hct (test code = Hct) 43.1 42.0-54.0 N [facility] CenterXypaffzUUTYLAMTQY2309-02-43 11:10:00 Test Item Value Reference Range Interpretation Comments Hgb (test code = Hgb) 14.8 14.0-18.0 N [facility] CenterIirzqyuUGMTRBVQXL0950-11-46 11:10:00 Test Item Value Reference Range Interpretation Comments WBC (test code = WBC) 7.1 3.7-10.4 N [facility] CenterSwhkncvJWGXKZGDZD6802-66-14 11:10:00 Test Item Value Reference Range Interpretation Comments RBC (test code = RBC) 4.57 4.70-6.10 L [facility] CenterAkqfrybTKKMLBUJJ7141-66-09 11:10:00 Test Item Value Reference Range Interpretation Comments eGFR (test code = eGFR) 71 [facility] CenterKpdvbieORTUMTFDB6567-05-69 11:10:00 Test Item Value Reference Range Interpretation Comments CO2 (test code = CO2) 29 24-32 N [facility] CenterEfaohhdIDFKOCGLE9047-44-92 11:10:00 Test Item Value Reference Range Interpretation Comments Glucose Lvl (test code = Glucose Lvl) 120 70-99 H [facility] CenterEnwubnsEVDFUSNVB2243-00-67 11:10:00 Test Item Value Reference Range Interpretation Comments Chloride Lvl (test code = Chloride Lvl) 103 95-109 N [facility] CenterSvwgkvaBOHGFLQET3210-94-05 11:10:00 Test Item Value Reference Range Interpretation Comments Potassium Lvl (test code = Potassium 3.9 3.5-5.1 N Lvl) [facility] CenterOdqnnbvWVFNXDNAN1255-73-14 11:10:00 Test Item Value Reference Range Interpretation Comments Sodium Lvl (test code = Sodium Lvl) 139 135-145 N [facility] CenterJegmhlyOXXXRRDKN9569-01-31 11:10:00 Test Item Value Reference Range Interpretation Comments Creatinine Lvl (test code = Creatinine 1.2 0.5-1.4 N Lvl) [facility] CenterEmspvadVTZZJPXXO0017-39-09 11:10:00 Test Item Value Reference Range Interpretation Comments Calcium Lvl (test code = Calcium Lvl) 8.2 8.5-10.5 L [facility] CenterAddswguZYNFTUVQZ7971-51-53 11:10:00 Test Item Value Reference Range Interpretation Comments BUN (test code = BUN) 12 7-22 N [facility] CenterDegbacyUHRWSYEYR1637-14-15 11:10:00 Test Item Value Reference Range Interpretation Comments AGAP (test code = AGAP) 10.9 10.0-20.0 N [facility] CenterJgzlodmJOVVNGXTAR5173-60-03 11:10:00 Test Item Value Reference Range Interpretation Comments Segs (test code = Segs) 61.0 45.0-75.0 N [facility] CenterBlwydgaIJHUQTRVVE2273-09-08 11:10:00 Test Item Value Reference Range Interpretation Comments Basophils (test code = 1.0 See_Comment N [Aut omated message] The Basophils) system which ge nerated this result tra nsmitted reference range : <=1.0. The reference r caitlin was not used to int erpret this result as normal/abnormal . [facility] CenterVorijhqXBZHNQQPZU9959-16-88 11:10:00 Test Item Value Reference Range Interpretation Comments Eosinophils (test code = 1.0 See_Comment N [A utomated message] The Eosinophils) system which ge nerated this result tra nsmitted reference range : <=4.0. The reference r caitlin was not used to int erpret this result as normal/abnormal . [facility] CenterOmtjxhnOBNKEYRTUH2796-67-42 11:10:00 Test Item Value Reference Range Interpretation Comments Large Plt (test code = Slight *ABN*(01/15/2012 A Large Plt) 05:10:00) [facility] CenterZhkumtnNGYWJNLPSO3667-75-29 11:10:00 Test Item Value Reference Range Interpretation Comments Lymphocytes (test code = Lymphocytes) 13.0 20.0-40.0 L [facility] CenterEdhveqeHTFBBFAQOE2134-99-18 11:10:00 Test Item Value Reference Range Interpretation Comments Monocytes (test code = Monocytes) 12.0 2.0-12.0 N [facility] CenterLqntumvNLKLBDRAGE7274-03-09 11:10:00 Test Item Value Reference Range Interpretation Comments Polychrom (test code = Slight (01/15/2012 N Polychrom) 05:10:00) [facility] CenterHhgjllrUAIVTRKUQZ7274-10-68 11:10:00 Test Item Value Reference Range Interpretation Comments Tot Cell Ct (test code = Tot Cell Ct) 100 1 [facility] CenterAjklitiXPZKNJPLAH9044-04-19 11:10:00 Test Item Value Reference Range Interpretation Comments Atypical Lymphs (test code = Atypical 0.0 N Lymphs) [facility] CenterJseybalIUVUIQEMWZ2446-81-20 11:10:00 Test Item Value Reference Range Interpretation Comments Basophils # (test code 0.1 See_Comment N [Aut omated message] The = Basophils #) system which generated this result tra nsmitted reference range : <=0.2. The reference r caitlin was not used to int erpret this result as normal/abnormal . [facility] CenterAvqojccYWHOAIZGQK4922-46-33 11:10:00 Test Item Value Reference Range Interpretation Comments Bands (test code = 12.0 See_Comment H [Automat ed message] The Bands) system which ge nerated this result transmit pradeep reference range : <=11.0. The reference r caitlin was not used to interpr et this result as maximus l/abnormal. [facility] CenterZduhyhqWSAWEQFFSA8459-45-20 11:10:00 Test Item Value Reference Range Interpretation Comments Lymphocytes # (test code = Lymphocytes 0.9 1.0-5.5 L #) [facility] CenterTebcxhbSAFFCRJSGQ7519-97-12 11:10:00 Test Item Value Reference Range Interpretation Comments Eosinophils # (test code 0.1 See_Comment N [A utomated message] The = Eosinophils #) system whic h generated this result tra nsmitted reference range : <=0.5. The reference r caitlin was not used to int erpret this result as normal/abnormal . [facility] CenterEezlfisCNAFSQKIQB2055-68-15 11:10:00 Test Item Value Reference Range Interpretation Comments Segs-Bands # (test code = Segs-Bands #) 5.2 1.5-8.1 N [facility] CenterQbhjifcSCATZDSVPX7135-17-27 11:10:00 Test Item Value Reference Range Interpretation Comments Monocytes # (test code 0.9 See_Comment H [Aut omated message] The = Monocytes #) system which generated this result tra nsmitted reference range : <=0.8. The reference r caitlin was not used to int erpret this result as normal/abnormal . [facility] CenterLtltzmuVMKVLUPFEL8050-78-02 11:10:00 Test Item Value Reference Range Interpretation Comments RDW (test code = RDW) 13.8 11.5-14.5 N [facility] CenterFynxbotSNERHKXOAW5893-73-92 11:10:00 Test Item Value Reference Range Interpretation Comments MPV (test code = MPV) 8.6 7.4-10.4 N [facility] CenterXlwpqizDTXBFXCRKW5036-77-26 11:10:00 Test Item Value Reference Range Interpretation Comments Platelet (test code = Platelet) 306 133-450 N [facility] CenterDgvaqjgAIHXNJGNYN3660-61-15 11:10:00 Test Item Value Reference Range Interpretation Comments MCV (test code = MCV) 94.3 80.0-94.0 H [facility] CenterHlwqiicZYVDYBAYQZ9469-51-31 11:10:00 Test Item Value Reference Range Interpretation Comments MCH (test code = MCH) 32.5 pg 27.0-31.0 H [facility] CenterKaxquytUYAJURREKZ1829-36-57 11:10:00 Test Item Value Reference Range Interpretation Comments MCHC (test code = MCHC) 34.5 32.0-36.0 N [facility] CenterSwyvogsBPEUFYHILN4745-27-85 11:10:00 Test Item Value Reference Range Interpretation Comments Hct (test code = Hct) 43.1 42.0-54.0 N [facility] CenterIsswsdmOCTMSIAWOU3381-77-85 11:10:00 Test Item Value Reference Range Interpretation Comments Hgb (test code = Hgb) 14.8 14.0-18.0 N [facility] CenterQkcndebPBAEYKIRST7607-55-46 11:10:00 Test Item Value Reference Range Interpretation Comments WBC (test code = WBC) 7.1 3.7-10.4 N [facility] CenterPbgvukdOPWTCWHYWS5702-38-83 11:10:00 Test Item Value Reference Range Interpretation Comments RBC (test code = RBC) 4.57 4.70-6.10 L [facility] CenterBruysdtULHUCAAKD6284-92-11 11:10:00 Test Item Value Reference Range Interpretation Comments eGFR (test code = eGFR) 71 [facility] CenterDeenrcqSRJBNBZYT3474-55-18 11:10:00 Test Item Value Reference Range Interpretation Comments CO2 (test code = CO2) 29 24-32 N [facility] CenterVuahzldURYXXFPJB2966-23-01 11:10:00 Test Item Value Reference Range Interpretation Comments Glucose Lvl (test code = Glucose Lvl) 120 70-99 H [facility] CenterDrrxzhqMQRJUIETE6402-29-43 11:10:00 Test Item Value Reference Range Interpretation Comments Chloride Lvl (test code = Chloride Lvl) 103 95-109 N [facility] CenterDihqhrqCZMHBMTIT6360-74-42 11:10:00 Test Item Value Reference Range Interpretation Comments Potassium Lvl (test code = Potassium 3.9 3.5-5.1 N Lvl) [facility] CenterYaylirfMKHCIGWHD0188-53-53 11:10:00 Test Item Value Reference Range Interpretation Comments Sodium Lvl (test code = Sodium Lvl) 139 135-145 N [facility] CenterKtmxeqwQZTGIOYFC6002-74-35 11:10:00 Test Item Value Reference Range Interpretation Comments Creatinine Lvl (test code = Creatinine 1.2 0.5-1.4 N Lvl) [facility] CenterYxtmwhrTFGNSZVQF5880-15-18 11:10:00 Test Item Value Reference Range Interpretation Comments Calcium Lvl (test code = Calcium Lvl) 8.2 8.5-10.5 L [facility] CenterYynltblEYHZKNMXC7913-39-15 11:10:00 Test Item Value Reference Range Interpretation Comments BUN (test code = BUN) 12 7-22 N [facility] CenterUasrmmvYSXSURTDV9240-22-19 11:10:00 Test Item Value Reference Range Interpretation Comments AGAP (test code = AGAP) 10.9 10.0-20.0 N [facility] CenterTxywgpbBONNFFAQSZ5298-46-78 11:10:00 Test Item Value Reference Range Interpretation Comments Segs (test code = Segs) 61.0 45.0-75.0 N [facility] CenterGvlhaqnGNYFUHWGTN8282-55-18 11:10:00 Test Item Value Reference Range Interpretation Comments Basophils (test code = 1.0 See_Comment N [Aut omated message] The Basophils) system which ge nerated this result tra nsmitted reference range : <=1.0. The reference r caitlin was not used to int erpret this result as normal/abnormal . [facility] CenterYsefojyPZTDAGMGJC0710-93-70 11:10:00 Test Item Value Reference Range Interpretation Comments Eosinophils (test code = 1.0 See_Comment N [A utomated message] The Eosinophils) system which ge nerated this result tra nsmitted reference range : <=4.0. The reference r caitlin was not used to int erpret this result as normal/abnormal . [facility] CenterDknmdfmSKCOKEODSO5549-77-24 11:10:00 Test Item Value Reference Range Interpretation Comments Large Plt (test code = Slight *ABN*(01/15/2012 A Large Plt) 05:10:00) [facility] CenterCeaaspwHNDAXPEGKX8540-82-46 11:10:00 Test Item Value Reference Range Interpretation Comments Lymphocytes (test code = Lymphocytes) 13.0 20.0-40.0 L [facility] CenterKcqhhzjFDZMVBWZIY8469-60-79 11:10:00 Test Item Value Reference Range Interpretation Comments Monocytes (test code = Monocytes) 12.0 2.0-12.0 N [facility] CenterFymnkppPTJJORVDFY2880-81-57 11:10:00 Test Item Value Reference Range Interpretation Comments Polychrom (test code = Slight (01/15/2012 N Polychrom) 05:10:00) [facility] [facility]DsluehdCHRHNIGYVO6487-57-22 11:10:00 Test Item Value Reference Range Interpretation Comments Tot Cell Ct (test code = Tot Cell Ct) 100 1 [facility] CenterInbuwwjDPVNEGTPFI1317-53-96 11:10:00 Test Item Value Reference Range Interpretation Comments Atypical Lymphs (test code = Atypical 0.0 N Lymphs) [facility] CenterZxhsdllDYRFMGDZRE8945-75-80 11:10:00 Test Item Value Reference Range Interpretation Comments Basophils # (test code 0.1 See_Comment N [Aut omated message] The = Basophils #) system which generated this result tra nsmitted reference range : <=0.2. The reference r caitlin was not used to int erpret this result as normal/abnormal . [facility] CenterJhcdbacBBXDBFUAIW3292-95-29 11:10:00 Test Item Value Reference Range Interpretation Comments Bands (test code = 12.0 See_Comment H [Automat ed message] The Bands) system which ge nerated this result transmit pradeep reference range : <=11.0. The reference r caitlin was not used to interpr et this result as maximus l/abnormal. [facility] CenterEsyzjwoJSKFQGSBVQ1518-63-52 11:10:00 Test Item Value Reference Range Interpretation Comments Lymphocytes # (test code = Lymphocytes 0.9 1.0-5.5 L #) [facility] CenterJszhojmOEBGNLINRB9864-01-09 11:10:00 Test Item Value Reference Range Interpretation Comments Eosinophils # (test code 0.1 See_Comment N [A utomated message] The = Eosinophils #) system ic h generated this result tra nsmitted reference range : <=0.5. The reference r caitlin was not used to int erpret this result as normal/abnormal . [facility] CenterIrdrbhqFXGAIOESVL6426-40-81 11:10:00 Test Item Value Reference Range Interpretation Comments Segs-Bands # (test code = Segs-Bands #) 5.2 1.5-8.1 N [facility] CenterGgtjwidYKZCVEVJXX6970-26-61 11:10:00 Test Item Value Reference Range Interpretation Comments Monocytes # (test code 0.9 See_Comment H [Aut omated message] The = Monocytes #) system which generated this result tra nsmitted reference range : <=0.8. The reference r caitlin was not used to int erpret this result as normal/abnormal . [facility] CenterBsieqqgVYFWGZLAKW3994-84-44 11:10:00 Test Item Value Reference Range Interpretation Comments RDW (test code = RDW) 13.8 11.5-14.5 N [facility] CenterDlywxhmLGMGSVTHPW3949-20-88 11:10:00 Test Item Value Reference Range Interpretation Comments MPV (test code = MPV) 8.6 7.4-10.4 N [facility] CenterFxmwjskKYLPWOVETJ6189-65-53 11:10:00 Test Item Value Reference Range Interpretation Comments Platelet (test code = Platelet) 306 133-450 N [facility] CenterGvabvxuPQYHAJIIKD9918-14-97 11:10:00 Test Item Value Reference Range Interpretation Comments MCV (test code = MCV) 94.3 80.0-94.0 H [facility] CenterWrvabkbAALRGPSSDR0094-55-79 11:10:00 Test Item Value Reference Range Interpretation Comments MCH (test code = MCH) 32.5 pg 27.0-31.0 H [facility] CenterEegwdmcMNEALSNVGZ2781-91-07 11:10:00 Test Item Value Reference Range Interpretation Comments MCHC (test code = MCHC) 34.5 32.0-36.0 N [facility] CenterUsoxohcCRCYFIXWRD6099-79-17 11:10:00 Test Item Value Reference Range Interpretation Comments Hct (test code = Hct) 43.1 42.0-54.0 N [facility] CenterRpoalkmYSEVCSSOTH0092-85-25 11:10:00 Test Item Value Reference Range Interpretation Comments Hgb (test code = Hgb) 14.8 14.0-18.0 N [facility] CenterGnyzqorIGKUWCKQCT4010-31-93 11:10:00 Test Item Value Reference Range Interpretation Comments WBC (test code = WBC) 7.1 3.7-10.4 N [facility] CenterWwfcwjyVOCOIWNGDY6603-75-42 11:10:00 Test Item Value Reference Range Interpretation Comments RBC (test code = RBC) 4.57 4.70-6.10 L [facility]FfjqarlPLOZGZERI2191-52-55 11:10:00 Test Item Value Reference Range Interpretation Comments eGFR (test code = eGFR) 71 [facility] CenterTplcwyjJDAVYTEYG2408-18-78 11:10:00 Test Item Value Reference Range Interpretation Comments CO2 (test code = CO2) 29 24-32 N [facility] CenterVtnkriwUOFPKTTJY7681-43-13 11:10:00 Test Item Value Reference Range Interpretation Comments Glucose Lvl (test code = Glucose Lvl) 120 70-99 H [facility] CenterMrklyzwLFFWLYRMU3222-87-74 11:10:00 Test Item Value Reference Range Interpretation Comments Chloride Lvl (test code = Chloride Lvl) 103 95-109 N [facility] CenterNhgmxfwCMONSWAPS7193-66-04 11:10:00 Test Item Value Reference Range Interpretation Comments Potassium Lvl (test code = Potassium 3.9 3.5-5.1 N Lvl) [facility] CenterOznhbfvVLPOFMECO1105-05-93 11:10:00 Test Item Value Reference Range Interpretation Comments Sodium Lvl (test code = Sodium Lvl) 139 135-145 N [facility] CenterEunzcbsUJALLDDMS2935-10-32 11:10:00 Test Item Value Reference Range Interpretation Comments Creatinine Lvl (test code = Creatinine 1.2 0.5-1.4 N Lvl) [facility] CenterZlnulyrGUZCCBPTG6478-73-03 11:10:00 Test Item Value Reference Range Interpretation Comments Calcium Lvl (test code = Calcium Lvl) 8.2 8.5-10.5 L [facility] CenterFlaqbvoGXEAPDBIU3069-15-21 11:10:00 Test Item Value Reference Range Interpretation Comments BUN (test code = BUN) 12 7-22 N [facility] CenterXvkhvnxEFCPJMOCO3253-20-44 11:10:00 Test Item Value Reference Range Interpretation Comments eGFR (test code = eGFR) 71 [facility] CenterZcxutljLVUCGZOSI3098-06-92 11:10:00 Test Item Value Reference Range Interpretation Comments AGAP (test code = AGAP) 10.9 10.0-20.0 N [facility] CenterVhdgjcvOMUHFHGIRU5879-80-07 11:10:00 Test Item Value Reference Range Interpretation Comments Segs (test code = Segs) 61.0 45.0-75.0 N [facility] CenterWaixmyhQDAXQSUVKO0202-20-08 11:10:00 Test Item Value Reference Range Interpretation Comments Basophils (test code = 1.0 See_Comment N [Aut omated message] The Basophils) system which ge nerated this result tra nsmitted reference range : <=1.0. The reference r caitlin was not used to int erpret this result as normal/abnormal . [facility] CenterGxurrqsNGDJXGCKKV4660-64-38 11:10:00 Test Item Value Reference Range Interpretation Comments Eosinophils (test code = 1.0 See_Comment N [A utomated message] The Eosinophils) system which ge nerated this result tra nsmitted reference range : <=4.0. The reference r caitlin was not used to int erpret this result as normal/abnormal . [facility] CenterNwkmeycVLPDBEZTWZ8606-39-35 11:10:00 Test Item Value Reference Range Interpretation Comments Large Plt (test code = Slight *ABN*(01/15/2012 A Large Plt) 05:10:00) [facility] CenterFduvxzpZIHNZPBSSC5437-96-17 11:10:00 Test Item Value Reference Range Interpretation Comments Lymphocytes (test code = Lymphocytes) 13.0 20.0-40.0 L [facility] CenterDeexgdtXRESNDUTMJ6613-87-28 11:10:00 Test Item Value Reference Range Interpretation Comments Monocytes (test code = Monocytes) 12.0 2.0-12.0 N [facility] CenterDtfksntIMNKQGTQSL6773-79-71 11:10:00 Test Item Value Reference Range Interpretation Comments Polychrom (test code = Slight (01/15/2012 N Polychrom) 05:10:00) [facility] CenterSuuufjsNUGLVQHOJI3354-34-87 11:10:00 Test Item Value Reference Range Interpretation Comments Tot Cell Ct (test code = Tot Cell Ct) 100 1 [facility] CenterUiccjdmWCLUDWBYHO9410-28-45 11:10:00 Test Item Value Reference Range Interpretation Comments Atypical Lymphs (test code = Atypical 0.0 N Lymphs) [facility]LLQODOUSV8736[facility] 11:10:00 Test Item Value Reference Range Interpretation Comments CO2 (test code = CO2) 29 24-32 N [facility] CenterPenjdeuFCSAMNTSEX6733-83-61 11:10:00 Test Item Value Reference Range Interpretation Comments Basophils # (test code 0.1 See_Comment N [Aut omated message] The = Basophils #) system which generated this result tra nsmitted reference range : <=0.2. The reference r caitlin was not used to int erpret this result as normal/abnormal . [facility] CenterNzaernmJQVSGDFMFU6879-90-45 11:10:00 Test Item Value Reference Range Interpretation Comments Bands (test code = 12.0 See_Comment H [Automat ed message] The Bands) system which ge nerated this result transmit pradeep reference range : <=11.0. The reference r caitlin was not used to interpr et this result as maximus l/abnormal. [facility] CenterTweugdtEVCOMLUMXO7989-88-57 11:10:00 Test Item Value Reference Range Interpretation Comments Lymphocytes # (test code = Lymphocytes 0.9 1.0-5.5 L #) [facility] CenterZiifuylHADJDVJSMZ8880-09-59 11:10:00 Test Item Value Reference Range Interpretation Comments Eosinophils # (test code 0.1 See_Comment N [A utomated message] The = Eosinophils #) system whic h generated this result tra nsmitted reference range : <=0.5. The reference r caitlin was not used to int erpret this result as normal/abnormal . [facility] CenterNnclcxaAHZYWTQAER8511-98-10 11:10:00 Test Item Value Reference Range Interpretation Comments Segs-Bands # (test code = Segs-Bands #) 5.2 1.5-8.1 N [facility] CenterPkzbigrKDJRTVORAO3258-09-22 11:10:00 Test Item Value Reference Range Interpretation Comments Monocytes # (test code 0.9 See_Comment H [Aut omated message] The = Monocytes #) system which generated this result tra nsmitted reference range : <=0.8. The reference r caitlin was not used to int erpret this result as normal/abnormal . [facility] CenterOxfidteYTTQQXPPWH1830-36-30 11:10:00 Test Item Value Reference Range Interpretation Comments RDW (test code = RDW) 13.8 11.5-14.5 N [facility] CenterElwhzspGXPLZZTMSN0189-80-83 11:10:00 Test Item Value Reference Range Interpretation Comments MPV (test code = MPV) 8.6 7.4-10.4 N [facility] CenterBnqylsbJUXWQEVDRI8817-62-69 11:10:00 Test Item Value Reference Range Interpretation Comments Platelet (test code = Platelet) 306 133-450 N [facility] CenterRghlsoxJFMWXCRIBF0058-73-74 11:10:00 Test Item Value Reference Range Interpretation Comments MCV (test code = MCV) 94.3 80.0-94.0 H [facility] CenterJualfykUCAUBBAXK6925-10-22 11:10:00 Test Item Value Reference Range Interpretation Comments Glucose Lvl (test code = Glucose Lvl) 120 70-99 H [facility] CenterGotexmrBDCOJWSRXD6307-49-09 11:10:00 Test Item Value Reference Range Interpretation Comments MCH (test code = MCH) 32.5 pg 27.0-31.0 H [facility] CenterOcvxeicOKTLNKOLHJ0603-16-20 11:10:00 Test Item Value Reference Range Interpretation Comments MCHC (test code = MCHC) 34.5 32.0-36.0 N [facility] CenterQmtrdprBIZMCPSQLS4922-64-43 11:10:00 Test Item Value Reference Range Interpretation Comments Hct (test code = Hct) 43.1 42.0-54.0 N [facility] CenterHmyaaugBDPCKHCXRW1946-04-22 11:10:00 Test Item Value Reference Range Interpretation Comments Hgb (test code = Hgb) 14.8 14.0-18.0 N [facility] CenterEhqvaelQXEDNYAHFL8411-00-58 11:10:00 Test Item Value Reference Range Interpretation Comments WBC (test code = WBC) 7.1 3.7-10.4 N [facility] CenterFkqeswhQSAKBGVUOH5651-00-85 11:10:00 Test Item Value Reference Range Interpretation Comments RBC (test code = RBC) 4.57 4.70-6.10 L [facility] CenterIqriqdmEKAXEVIAF3028-66-33 11:10:00 Test Item Value Reference Range Interpretation Comments Chloride Lvl (test code = Chloride Lvl) 103 95-109 N [facility] CenterGcyhdvePGGPFAVLU5730-23-47 11:10:00 Test Item Value Reference Range Interpretation Comments Potassium Lvl (test code = Potassium 3.9 3.5-5.1 N Lvl) [facility] CenterYghgyqhNRZYFKEGL2449-12-10 11:10:00 Test Item Value Reference Range Interpretation Comments Sodium Lvl (test code = Sodium Lvl) 139 135-145 N [facility] CenterRqvwznjOMMWTXQJC0435-78-90 11:10:00 Test Item Value Reference Range Interpretation Comments Creatinine Lvl (test code = Creatinine 1.2 0.5-1.4 N Lvl) [facility] CenterKxntwwoQXGACZBAU1924-63-15 11:10:00 Test Item Value Reference Range Interpretation Comments Calcium Lvl (test code = Calcium Lvl) 8.2 8.5-10.5 L [facility] CenterFerzbgaNHAVJUWAH5608-30-95 11:10:00 Test Item Value Reference Range Interpretation Comments BUN (test code = BUN) 12 7-22 N [facility] CenterVrqfhmyVYKZTEULC7033-69-65 11:10:00 Test Item Value Reference Range Interpretation Comments AGAP (test code = AGAP) 10.9 10.0-20.0 N [facility] CenterRyrfjxwGZUXXBHRDB1053-81-64 11:10:00 Test Item Value Reference Range Interpretation Comments Segs (test code = Segs) 61.0 45.0-75.0 N [facility] CenterGtlozozEAMPVFMUMA9655-15-02 11:10:00 Test Item Value Reference Range Interpretation Comments Basophils (test code = 1.0 See_Comment N [Aut omated message] The Basophils) system which ge nerated this result tra nsmitted reference range : <=1.0. The reference r caitlin was not used to int erpret this result as normal/abnormal . [facility] CenterHnmxtqxKTDEFCFNS6183-91-09 11:10:00 Test Item Value Reference Range Interpretation Comments eGFR (test code = eGFR) 71 [facility] CenterWjfnfyxBYINEKRAF6452-92-18 11:10:00 Test Item Value Reference Range Interpretation Comments CO2 (test code = CO2) 29 24-32 N [facility] CenterMtujnrvEXSKGWDAT3342-75-17 11:10:00 Test Item Value Reference Range Interpretation Comments Glucose Lvl (test code = Glucose Lvl) 120 70-99 H [facility] CenterAcecawzXKSEDTNPOW2053-26-40 11:10:00 Test Item Value Reference Range Interpretation Comments Eosinophils (test code = 1.0 See_Comment N [A utomated message] The Eosinophils) system which ge nerated this result tra nsmitted reference range : <=4.0. The reference r caitlin was not used to int erpret this result as normal/abnormal . [facility] CenterSriljqzBJMKVBTSM1694-16-04 11:10:00 Test Item Value Reference Range Interpretation Comments Chloride Lvl (test code = Chloride Lvl) 103 95-109 N [facility] CenterIzvdtkjBZSPNUXBM2749-03-52 11:10:00 Test Item Value Reference Range Interpretation Comments Potassium Lvl (test code = Potassium 3.9 3.5-5.1 N Lvl) [facility] CenterVeyijmwKXWTQOOPE9356-10-63 11:10:00 Test Item Value Reference Range Interpretation Comments Sodium Lvl (test code = Sodium Lvl) 139 135-145 N [facility] CenterCafiycbRMVMJFUHN6998-90-69 11:10:00 Test Item Value Reference Range Interpretation Comments Creatinine Lvl (test code = Creatinine 1.2 0.5-1.4 N Lvl) [facility] CenterZgmzypvQBJTWUMTJ6962-98-51 11:10:00 Test Item Value Reference Range Interpretation Comments Calcium Lvl (test code = Calcium Lvl) 8.2 8.5-10.5 L [facility] CenterFcjuancIYPIBMFOH9362-44-12 11:10:00 Test Item Value Reference Range Interpretation Comments BUN (test code = BUN) 12 7-22 N [facility] CenterZcyoposKWZIXPGVF8625-02-02 11:10:00 Test Item Value Reference Range Interpretation Comments AGAP (test code = AGAP) 10.9 10.0-20.0 N [facility] CenterYzexmegTAIJNMLDQT5812-30-77 11:10:00 Test Item Value Reference Range Interpretation Comments Segs (test code = Segs) 61.0 45.0-75.0 N [facility] CenterZkrcowyRCRYODCTJM3735-30-95 11:10:00 Test Item Value Reference Range Interpretation Comments Basophils (test code = 1.0 See_Comment N [Aut omated message] The Basophils) system which ge nerated this result tra nsmitted reference range : <=1.0. The reference r caitlin was not used to int erpret this result as normal/abnormal . [facility] CenterJpobnhdHSYWDAXUGC2814-84-87 11:10:00 Test Item Value Reference Range Interpretation Comments Eosinophils (test code = 1.0 See_Comment N [A utomated message] The Eosinophils) system which ge nerated this result tra nsmitted reference range : <=4.0. The reference r caitlin was not used to int erpret this result as normal/abnormal . [facility] CenterEwpececEPUAIXUOCY1276-38-86 11:10:00 Test Item Value Reference Range Interpretation Comments Large Plt (test code = Slight *ABN*(01/15/2012 A Large Plt) 05:10:00) [facility] CenterVejiixtOHKQTZDBJD7412-27-13 11:10:00 Test Item Value Reference Range Interpretation Comments Large Plt (test code = Slight *ABN*(01/15/2012 A Large Plt) 05:10:00) [facility] CenterHseamrzOAENGIQFRM2171-34-28 11:10:00 Test Item Value Reference Range Interpretation Comments Lymphocytes (test code = Lymphocytes) 13.0 20.0-40.0 L [facility] CenterIvmeaxoMAEILPPPGE2754-37-27 11:10:00 Test Item Value Reference Range Interpretation Comments Monocytes (test code = Monocytes) 12.0 2.0-12.0 N [facility] CenterObueptvSBFXQQEICF7232-14-67 11:10:00 Test Item Value Reference Range Interpretation Comments Polychrom (test code = Slight (01/15/2012 N Polychrom) 05:10:00) [facility] CenterDnxqvqxIQQWZKUMGN2361-92-15 11:10:00 Test Item Value Reference Range Interpretation Comments Tot Cell Ct (test code = Tot Cell Ct) 100 1 [facility] CenterHmliontCOVVURJPGC5371-86-40 11:10:00 Test Item Value Reference Range Interpretation Comments Atypical Lymphs (test code = Atypical 0.0 N Lymphs) [facility] CenterYozlpjiJVNWRDSLLK3473-46-78 11:10:00 Test Item Value Reference Range Interpretation Comments Basophils # (test code 0.1 See_Comment N [Aut omated message] The = Basophils #) system which generated this result tra nsmitted reference range : <=0.2. The reference r caitlin was not used to int erpret this result as normal/abnormal . [facility] CenterZjdvdkpMOLRNMXRFU8098-60-17 11:10:00 Test Item Value Reference Range Interpretation Comments Bands (test code = 12.0 See_Comment H [Automat ed message] The Bands) system which ge nerated this result transmit pradeep reference range : <=11.0. The reference r caitlin was not used to interpr et this result as maximus l/abnormal. [facility] CenterTvnovviKGUJMJIZLV6002-87-67 11:10:00 Test Item Value Reference Range Interpretation Comments Lymphocytes # (test code = Lymphocytes 0.9 1.0-5.5 L #) [facility] CenterIdchikhLLFIDRPTLC2207-78-93 11:10:00 Test Item Value Reference Range Interpretation Comments Eosinophils # (test code 0.1 See_Comment N [A utomated message] The = Eosinophils #) system ic h generated this result tra nsmitted reference range : <=0.5. The reference r caitlin was not used to int erpret this result as normal/abnormal . [facility] CenterVbovoeyZZZVVOTSOZ3027-56-58 11:10:00 Test Item Value Reference Range Interpretation Comments Lymphocytes (test code = Lymphocytes) 13.0 20.0-40.0 L [facility] CenterAhuzieeWCPBVFISSW1620-57-32 11:10:00 Test Item Value Reference Range Interpretation Comments Segs-Bands # (test code = Segs-Bands #) 5.2 1.5-8.1 N [facility] CenterChnsdxiNXKAYWFQBE1196-34-09 11:10:00 Test Item Value Reference Range Interpretation Comments Monocytes # (test code 0.9 See_Comment H [Aut omated message] The = Monocytes #) system which generated this result tra nsmitted reference range : <=0.8. The reference r caitlin was not used to int erpret this result as normal/abnormal . [facility] CenterBfburycYQNUYVIPOE0102-48-21 11:10:00 Test Item Value Reference Range Interpretation Comments RDW (test code = RDW) 13.8 11.5-14.5 N [facility] CenterUwhkjlgUOZLGEEMWG6393-60-52 11:10:00 Test Item Value Reference Range Interpretation Comments MPV (test code = MPV) 8.6 7.4-10.4 N [facility] CenterJfwsosoEGCKDMSGFA3460-06-31 11:10:00 Test Item Value Reference Range Interpretation Comments Platelet (test code = Platelet) 306 133-450 N [facility] CenterHygqwrzQIQFJWJBMM0609-65-00 11:10:00 Test Item Value Reference Range Interpretation Comments MCV (test code = MCV) 94.3 80.0-94.0 H [facility] CenterHcyvifnFMITWTKVTF8948-25-15 11:10:00 Test Item Value Reference Range Interpretation Comments MCH (test code = MCH) 32.5 pg 27.0-31.0 H [facility] CenterYjtdppdSINQZTSIQJ8180-69-96 11:10:00 Test Item Value Reference Range Interpretation Comments MCHC (test code = MCHC) 34.5 32.0-36.0 N [facility] CenterGojodquTQHVKNNPYV5271-69-61 11:10:00 Test Item Value Reference Range Interpretation Comments Hct (test code = Hct) 43.1 42.0-54.0 N [facility] CenterShzsftjLBVSEFQNKV0692-30-98 11:10:00 Test Item Value Reference Range Interpretation Comments Hgb (test code = Hgb) 14.8 14.0-18.0 N [facility] CenterKssokamOQIASXMLYG7052-29-89 11:10:00 Test Item Value Reference Range Interpretation Comments Monocytes (test code = Monocytes) 12.0 2.0-12.0 N [facility] CenterPqszkxrJNXDHWBJNG9419-50-97 11:10:00 Test Item Value Reference Range Interpretation Comments WBC (test code = WBC) 7.1 3.7-10.4 N [facility] CenterAdufxyhCQYNDMDTYT6764-39-06 11:10:00 Test Item Value Reference Range Interpretation Comments RBC (test code = RBC) 4.57 4.70-6.10 L [facility] CenterKxzbzhsEFTGAOEYJY0186-77-82 11:10:00 Test Item Value Reference Range Interpretation Comments Polychrom (test code = Slight (01/15/2012 N Polychrom) 05:10:00) [facility] CenterTgogttqVTBISKTXHP8051-24-30 11:10:00 Test Item Value Reference Range Interpretation Comments Tot Cell Ct (test code = Tot Cell Ct) 100 1 [facility] CenterXmrozjnDQLTRPPJOO8209-75-34 11:10:00 Test Item Value Reference Range Interpretation Comments Atypical Lymphs (test code = Atypical 0.0 N Lymphs) [facility] CenterIpfgsuwPPCWSYUYGK4135-55-59 11:10:00 Test Item Value Reference Range Interpretation Comments Basophils # (test code 0.1 See_Comment N [Aut omated message] The = Basophils #) system which generated this result tra nsmitted reference range : <=0.2. The reference r caitlin was not used to int erpret this result as normal/abnormal . [facility] CenterCzhswrfFHXLCDACMV4282-69-10 11:10:00 Test Item Value Reference Range Interpretation Comments Bands (test code = 12.0 See_Comment H [Automat ed message] The Bands) system which ge nerated this result transmit pradeep reference range : <=11.0. The reference r caitlin was not used to interpr et this result as maximus l/abnormal. [facility] CenterWsiwxldFFPTEFGBWJ8537-17-81 11:10:00 Test Item Value Reference Range Interpretation Comments Lymphocytes # (test code = Lymphocytes 0.9 1.0-5.5 L #) [facility] CenterBhmpusoAKRDJORGYP3533-47-14 11:10:00 Test Item Value Reference Range Interpretation Comments Eosinophils # (test code 0.1 See_Comment N [A utomated message] The = Eosinophils #) system whic h generated this result tra nsmitted reference range : <=0.5. The reference r caitlin was not used to int erpret this result as normal/abnormal . [facility] CenterQdpsqygHXDSAUCUFQ5850-86-77 11:10:00 Test Item Value Reference Range Interpretation Comments Segs-Bands # (test code = Segs-Bands #) 5.2 1.5-8.1 N [facility] CenterUzydjtnQJLEONBXHB6585-57-34 11:10:00 Test Item Value Reference Range Interpretation Comments Monocytes # (test code 0.9 See_Comment H [Aut omated message] The = Monocytes #) system which generated this result tra nsmitted reference range : <=0.8. The reference r caitlin was not used to int erpret this result as normal/abnormal . [facility]RsjvroxVMXMZPMJH1015-96-31 11:10:00 Test Item Value Reference Range Interpretation Comments eGFR (test code = eGFR) 71 [facility] CenterJqoyktyNRYTXXLMW1566-68-25 11:10:00 Test Item Value Reference Range Interpretation Comments CO2 (test code = CO2) 29 24-32 N [facility] CenterUkdwdgqECWKGYILA1418-03-80 11:10:00 Test Item Value Reference Range Interpretation Comments Glucose Lvl (test code = Glucose Lvl) 120 70-99 H [facility] CenterVzwhkmbZCHDQYIGR3479-34-62 11:10:00 Test Item Value Reference Range Interpretation Comments Chloride Lvl (test code = Chloride Lvl) 103 95-109 N [facility] [facility]AqnbeupUAKCQBVEA0458-51-40 11:10:00 Test Item Value Reference Range Interpretation Comments Potassium Lvl (test code = Potassium 3.9 3.5-5.1 N Lvl) [facility]GfnjkzaJJXBOVXQI7052-78-68 11:10:00 Test Item Value Reference Range Interpretation Comments Sodium Lvl (test code = Sodium Lvl) 139 135-145 N [facility] CenterZfxxsftUWAKCCZJD4326-91-79 11:10:00 Test Item Value Reference Range Interpretation Comments Creatinine Lvl (test code = Creatinine 1.2 0.5-1.4 N Lvl) [facility] CenterLcywgcqHBRWCAKAKR9149-39-85 11:10:00 Test Item Value Reference Range Interpretation Comments RDW (test code = RDW) 13.8 11.5-14.5 N [facility] CenterIujnzspSMQLDFZLZ6793-25-10 11:10:00 Test Item Value Reference Range Interpretation Comments Calcium Lvl (test code = Calcium Lvl) 8.2 8.5-10.5 L [facility] CenterZgetvomPQTRZHRYS6185-83-10 11:10:00 Test Item Value Reference Range Interpretation Comments BUN (test code = BUN) 12 7-22 N [facility] CenterRditvilBUFCKAUPV8805-19-06 11:10:00 Test Item Value Reference Range Interpretation Comments AGAP (test code = AGAP) 10.9 10.0-20.0 N [facility] CenterAgaqaauFJALWAZLVK2656-50-16 11:10:00 Test Item Value Reference Range Interpretation Comments Segs (test code = Segs) 61.0 45.0-75.0 N [facility] CenterFifztexQQNVHXXVAC5308-48-21 11:10:00 Test Item Value Reference Range Interpretation Comments Basophils (test code = 1.0 See_Comment N [Aut omated message] The Basophils) system which ge nerated this result tra nsmitted reference range : <=1.0. The reference r caitlin was not used to int erpret this result as normal/abnormal . [facility] CenterOfyrelnIYJDTXHYNN2963-86-10 11:10:00 Test Item Value Reference Range Interpretation Comments Eosinophils (test code = 1.0 See_Comment N [A utomated message] The Eosinophils) system which ge nerated this result tra nsmitted reference range : <=4.0. The reference r caitlin was not used to int erpret this result as normal/abnormal . [facility] CenterGkwuvkyJQEICISKUX2546-06-63 11:10:00 Test Item Value Reference Range Interpretation Comments Large Plt (test code = Slight *ABN*(01/15/2012 A Large Plt) 05:10:00) [facility] CenterIqiruuyOZFPIITPKQ8115-27-89 11:10:00 Test Item Value Reference Range Interpretation Comments Lymphocytes (test code = Lymphocytes) 13.0 20.0-40.0 L [facility] CenterCgajilwZWLMPZXQST5493-10-46 11:10:00 Test Item Value Reference Range Interpretation Comments Monocytes (test code = Monocytes) 12.0 2.0-12.0 N [facility] CenterTzydfeoFLPJDYEYRG3997-10-72 11:10:00 Test Item Value Reference Range Interpretation Comments Polychrom (test code = Slight (01/15/2012 N Polychrom) 05:10:00) [facility] CenterWwyqcxqMIDNSKBLLN3869-24-47 11:10:00 Test Item Value Reference Range Interpretation Comments MPV (test code = MPV) 8.6 7.4-10.4 N [facility] CenterXqtboqpGMECGBLSJE5644-39-63 11:10:00 Test Item Value Reference Range Interpretation Comments Tot Cell Ct (test code = Tot Cell Ct) 100 1 [facility] CenterSfdrpqlWKCIJIYQKR0225-16-09 11:10:00 Test Item Value Reference Range Interpretation Comments Atypical Lymphs (test code = Atypical 0.0 N Lymphs) [facility] CenterJkstzpoQIFAMFBITG0322-91-55 11:10:00 Test Item Value Reference Range Interpretation Comments Basophils # (test code 0.1 See_Comment N [Aut omated message] The = Basophils #) system which generated this result tra nsmitted reference range : <=0.2. The reference r caitlin was not used to int erpret this result as normal/abnormal . [facility] CenterYyfmmlwVVNUGEEIKU0351-94-34 11:10:00 Test Item Value Reference Range Interpretation Comments Bands (test code = 12.0 See_Comment H [Automat ed message] The Bands) system which ge nerated this result transmit pradeep reference range : <=11.0. The reference r caitlin was not used to interpr et this result as maximus l/abnormal. [facility] CenterGdjaepqLWEOUIOBDQ8514-52-01 11:10:00 Test Item Value Reference Range Interpretation Comments Lymphocytes # (test code = Lymphocytes 0.9 1.0-5.5 L #) [facility] CenterFcyvobwLLBWIGIKLV6943-15-76 11:10:00 Test Item Value Reference Range Interpretation Comments Eosinophils # (test code 0.1 See_Comment N [A utomated message] The = Eosinophils #) system whic h generated this result tra nsmitted reference range : <=0.5. The reference r caitlin was not used to int erpret this result as normal/abnormal . [facility] CenterIgtaxgoBUYMSFUDRU2811-28-82 11:10:00 Test Item Value Reference Range Interpretation Comments Segs-Bands # (test code = Segs-Bands #) 5.2 1.5-8.1 N [facility] CenterAmdhrfdAQRLMYXQNO8727-52-54 11:10:00 Test Item Value Reference Range Interpretation Comments Monocytes # (test code 0.9 See_Comment H [Aut omated message] The = Monocytes #) system which generated this result tra nsmitted reference range : <=0.8. The reference r caitlin was not used to int erpret this result as normal/abnormal . [facility] CenterWfgvqrvRLHMBQSDWW7113-12-74 11:10:00 Test Item Value Reference Range Interpretation Comments RDW (test code = RDW) 13.8 11.5-14.5 N [facility] CenterAvoinnbYOQNAZXKKB2412-61-59 11:10:00 Test Item Value Reference Range Interpretation Comments MPV (test code = MPV) 8.6 7.4-10.4 N [facility] CenterDuoebdaCEVDNCNLMU7098-07-94 11:10:00 Test Item Value Reference Range Interpretation Comments Platelet (test code = Platelet) 306 133-450 N [facility] CenterZzscrvuZEWOKLCNLF2176-29-18 11:10:00 Test Item Value Reference Range Interpretation Comments Platelet (test code = Platelet) 306 133-450 N [facility] CenterTpqxoyrSKQIARPWVR7090-44-52 11:10:00 Test Item Value Reference Range Interpretation Comments MCV (test code = MCV) 94.3 80.0-94.0 H [facility] CenterGwqrfszAICSFFMJRV3701-94-84 11:10:00 Test Item Value Reference Range Interpretation Comments MCH (test code = MCH) 32.5 pg 27.0-31.0 H [facility] CenterXkafpagPXCGJTTGAG4873-64-63 11:10:00 Test Item Value Reference Range Interpretation Comments MCHC (test code = MCHC) 34.5 32.0-36.0 N [facility] CenterXabxlxbLAVVTIXOUN1219-33-34 11:10:00 Test Item Value Reference Range Interpretation Comments Hct (test code = Hct) 43.1 42.0-54.0 N [facility] CenterUhafmjrUHOIZFVVFE8339-87-43 11:10:00 Test Item Value Reference Range Interpretation Comments Hgb (test code = Hgb) 14.8 14.0-18.0 N [facility] CenterGtwhwetWSOOFLHHLU5012-03-66 11:10:00 Test Item Value Reference Range Interpretation Comments WBC (test code = WBC) 7.1 3.7-10.4 N [facility] CenterMyftbsnLJEQYUTOMX6910-55-01 11:10:00 Test Item Value Reference Range Interpretation Comments RBC (test code = RBC) 4.57 4.70-6.10 L [facility] CenterJvkmbmgTJGKAYKVZT0666-04-92 11:10:00 Test Item Value Reference Range Interpretation Comments MCV (test code = MCV) 94.3 80.0-94.0 H [facility] CenterAwrfqmaZNZQSMDRHU0264-05-19 11:10:00 Test Item Value Reference Range Interpretation Comments MCH (test code = MCH) 32.5 pg 27.0-31.0 H [facility] CenterNygkaobFDKMOMKEYW6366-90-17 11:10:00 Test Item Value Reference Range Interpretation Comments MCHC (test code = MCHC) 34.5 32.0-36.0 N [facility] CenterTudtqehSEFXCGSAKI8042-63-94 11:10:00 Test Item Value Reference Range Interpretation Comments Hct (test code = Hct) 43.1 42.0-54.0 N [facility] CenterOknyhhkHYFTXAAZIQ0287-45-14 11:10:00 Test Item Value Reference Range Interpretation Comments Hgb (test code = Hgb) 14.8 14.0-18.0 N [facility] CenterQhmcofgXTFBWBNRTX6146-76-13 11:10:00 Test Item Value Reference Range Interpretation Comments WBC (test code = WBC) 7.1 3.7-10.4 N [facility] CenterGcjbmfzKFURQCHSWF9165-07-40 11:10:00 Test Item Value Reference Range Interpretation Comments RBC (test code = RBC) 4.57 4.70-6.10 L [facility] CenterUqqvhnmCKEWMIDQH7434-08-54 11:10:00 Test Item Value Reference Range Interpretation Comments eGFR (test code = eGFR) 71 [facility] CenterXfmhkkzLTCYGHHDK3292-47-83 11:10:00 Test Item Value Reference Range Interpretation Comments CO2 (test code = CO2) 29 24-32 N [facility] CenterYrwtzvaBQNNJPLCO7850-29-18 11:10:00 Test Item Value Reference Range Interpretation Comments Glucose Lvl (test code = Glucose Lvl) 120 70-99 H [facility] CenterZtstlkiFRNZCVLXV7032-55-17 11:10:00 Test Item Value Reference Range Interpretation Comments Chloride Lvl (test code = Chloride Lvl) 103 95-109 N [facility] CenterQdmizydCMOPQGTZZ7635-25-00 11:10:00 Test Item Value Reference Range Interpretation Comments Potassium Lvl (test code = Potassium 3.9 3.5-5.1 N Lvl) [facility] CenterPxkxkohYGNZXYTYC9958-93-30 11:10:00 Test Item Value Reference Range Interpretation Comments Sodium Lvl (test code = Sodium Lvl) 139 135-145 N [facility] CenterDiyqfhwJEJBQVJIN3261-52-72 11:10:00 Test Item Value Reference Range Interpretation Comments Creatinine Lvl (test code = Creatinine 1.2 0.5-1.4 N Lvl) [facility] CenterTdexteyVIQQBDTOR1208-20-90 11:10:00 Test Item Value Reference Range Interpretation Comments Calcium Lvl (test code = Calcium Lvl) 8.2 8.5-10.5 L [facility] CenterJmmuqdiOXSSNCSMM4536-77-13 11:10:00 Test Item Value Reference Range Interpretation Comments BUN (test code = BUN) 12 7-22 N [facility] CenterLpsnojiETPRJZPJZ7473-73-18 11:10:00 Test Item Value Reference Range Interpretation Comments AGAP (test code = AGAP) 10.9 10.0-20.0 N [facility] CenterIqunxxaMUZRCRVDVH7614-03-43 11:10:00 Test Item Value Reference Range Interpretation Comments Segs (test code = Segs) 61.0 45.0-75.0 N [facility] CenterFrhdodbEYTEPTPRVO8054-40-04 11:10:00 Test Item Value Reference Range Interpretation Comments Basophils (test code = 1.0 See_Comment N [Aut omated message] The Basophils) system which ge nerated this result tra nsmitted reference range : <=1.0. The reference r caitlin was not used to int erpret this result as normal/abnormal . [facility] CenterNrbxlosUPDLRVBHWZ0555-13-75 11:10:00 Test Item Value Reference Range Interpretation Comments Eosinophils (test code = 1.0 See_Comment N [A utomated message] The Eosinophils) system which ge nerated this result tra nsmitted reference range : <=4.0. The reference r caitlin was not used to int erpret this result as normal/abnormal . [facility] CenterHcenkvnTBSEHSZHEK8894-86-67 11:10:00 Test Item Value Reference Range Interpretation Comments Large Plt (test code = Slight *ABN*(01/15/2012 A Large Plt) 05:10:00) [facility] CenterQcuchcqFKRZQBWKVG3900-36-51 11:10:00 Test Item Value Reference Range Interpretation Comments Lymphocytes (test code = Lymphocytes) 13.0 20.0-40.0 L [facility] CenterTxootnnEFDBEJXEZD5824-13-68 11:10:00 Test Item Value Reference Range Interpretation Comments Monocytes (test code = Monocytes) 12.0 2.0-12.0 N [facility] CenterOqkvgxbXTAWDCYBLM9637-45-42 11:10:00 Test Item Value Reference Range Interpretation Comments Polychrom (test code = Slight (01/15/2012 N Polychrom) 05:10:00) [facility] CenterBnblpezLPQBWUBNSZ1231-22-63 11:10:00 Test Item Value Reference Range Interpretation Comments Tot Cell Ct (test code = Tot Cell Ct) 100 1 [facility] CenterSsgekvzBOJXUKUJIA7684-91-74 11:10:00 Test Item Value Reference Range Interpretation Comments Atypical Lymphs (test code = Atypical 0.0 N Lymphs) [facility] CenterOmtwegkDXTUDJGOZY0298-28-57 11:10:00 Test Item Value Reference Range Interpretation Comments Basophils # (test code 0.1 See_Comment N [Aut omated message] The = Basophils #) system which generated this result tra nsmitted reference range : <=0.2. The reference r caitlin was not used to int erpret this result as normal/abnormal . [facility] CenterZbemxfdKZNWHYMRDB5171-43-89 11:10:00 Test Item Value Reference Range Interpretation Comments Bands (test code = 12.0 See_Comment H [Automat ed message] The Bands) system which ge nerated this result transmit pradeep reference range : <=11.0. The reference r catilin was not used to interpr et this result as maximus l/abnormal. [facility] CenterBqevrrnWPYVIWPAEO7825-64-18 11:10:00 Test Item Value Reference Range Interpretation Comments Lymphocytes # (test code = Lymphocytes 0.9 1.0-5.5 L #) [facility] CenterEwirgnaHQCUMUFAWZ4123-98-16 11:10:00 Test Item Value Reference Range Interpretation Comments Eosinophils # (test code 0.1 See_Comment N [A utomated message] The = Eosinophils #) system [facility] h generated this result tra nsmitted reference range : <=0.5. The reference r caitlin was not used to int erpret this result as normal/abnormal . [facility] CenterQijnipgYOPHCICPUJ9163-19-18 11:10:00 Test Item Value Reference Range Interpretation Comments Segs-Bands # (test code = Segs-Bands #) 5.2 1.5-8.1 N [facility] CenterPxzdkmnEYQKCDFGKT8070-32-81 11:10:00 Test Item Value Reference Range Interpretation Comments Monocytes # (test code 0.9 See_Comment H [Aut omated message] The = Monocytes #) system which generated this result tra nsmitted reference range : <=0.8. The reference r caitlin was not used to int erpret this result as normal/abnormal . [facility] CenterOzahvcvCCKVYAXEBZ5525-34-30 11:10:00 Test Item Value Reference Range Interpretation Comments RDW (test code = RDW) 13.8 11.5-14.5 N [facility] CenterEdvvhdjPFNFLAGNPF4837-72-75 11:10:00 Test Item Value Reference Range Interpretation Comments MPV (test code = MPV) 8.6 7.4-10.4 N [facility] CenterMszxndmQJSJWIVTHO3466-56-07 11:10:00 Test Item Value Reference Range Interpretation Comments Platelet (test code = Platelet) 306 133-450 N [facility] CenterRyqxrlmIIIEQZWAWK5455-33-40 11:10:00 Test Item Value Reference Range Interpretation Comments MCV (test code = MCV) 94.3 80.0-94.0 H [facility] CenterGqtyjdoZBUGFSZJVY4231-81-74 11:10:00 Test Item Value Reference Range Interpretation Comments MCH (test code = MCH) 32.5 pg 27.0-31.0 H [facility] CenterZqtwspfYGJBQHNMJC3927-48-88 11:10:00 Test Item Value Reference Range Interpretation Comments MCHC (test code = MCHC) 34.5 32.0-36.0 N [facility] CenterNtcovwmRYEETTLZGF0690-06-47 11:10:00 Test Item Value Reference Range Interpretation Comments Hct (test code = Hct) 43.1 42.0-54.0 N [facility] CenterKiugabxQKFBCTJIVV8360-38-69 11:10:00 Test Item Value Reference Range Interpretation Comments Hgb (test code = Hgb) 14.8 14.0-18.0 N [facility] CenterCvakqlhCQRDIVYGVH6052-79-66 11:10:00 Test Item Value Reference Range Interpretation Comments WBC (test code = WBC) 7.1 3.7-10.4 N [facility] CenterJnjaqkwHFDBHABNUG6266-38-17 11:10:00 Test Item Value Reference Range Interpretation Comments RBC (test code = RBC) 4.57 4.70-6.10 L [facility] CenterEannnwmLXTDFIKZN5202-41-46 11:10:00 Test Item Value Reference Range Interpretation Comments eGFR (test code = eGFR) 71 [facility] CenterIkyhlhbXLYMHNTDO1251-38-90 11:10:00 Test Item Value Reference Range Interpretation Comments CO2 (test code = CO2) 29 24-32 N [facility] CenterUimpnbnHHSLQMEUR8521-02-36 11:10:00 Test Item Value Reference Range Interpretation Comments Glucose Lvl (test code = Glucose Lvl) 120 70-99 H [facility] CenterFlimpqwVLEXWTBNT3716-77-55 11:10:00 Test Item Value Reference Range Interpretation Comments Chloride Lvl (test code = Chloride Lvl) 103 95-109 N [facility] CenterCzigzqpZVYXSEXJA4595-51-50 11:10:00 Test Item Value Reference Range Interpretation Comments Potassium Lvl (test code = Potassium 3.9 3.5-5.1 N Lvl) [facility] CenterGpfrubgUANAWELWE0494-97-82 11:10:00 Test Item Value Reference Range Interpretation Comments Sodium Lvl (test code = Sodium Lvl) 139 135-145 N [facility] CenterVcamlfwWSCGVVXHH0025-76-68 11:10:00 Test Item Value Reference Range Interpretation Comments Creatinine Lvl (test code = Creatinine 1.2 0.5-1.4 N Lvl) [facility] CenterYdkxybkYVRBZDHKZ3571-27-45 11:10:00 Test Item Value Reference Range Interpretation Comments Calcium Lvl (test code = Calcium Lvl) 8.2 8.5-10.5 L [facility] CenterJsxcfraCQKKFYSBO2057-50-05 11:10:00 Test Item Value Reference Range Interpretation Comments BUN (test code = BUN) 12 7-22 N [facility] CenterPqnaplpEFQXEVADL2863-65-53 11:10:00 Test Item Value Reference Range Interpretation Comments AGAP (test code = AGAP) 10.9 10.0-20.0 N [facility] CenterJvmwuxhFNPHWWRDVD2665-17-25 11:10:00 Test Item Value Reference Range Interpretation Comments Segs (test code = Segs) 61.0 45.0-75.0 N [facility] CenterLhatzcnHUJPTLKTZT2325-42-49 11:10:00 Test Item Value Reference Range Interpretation Comments Basophils (test code = 1.0 See_Comment N [Aut omated message] The Basophils) system which ge nerated this result tra nsmitted reference range : <=1.0. The reference r caitlin was not used to int erpret this result as normal/abnormal . [facility] CenterHzerqujWJJXMHOHIE5127-72-50 11:10:00 Test Item Value Reference Range Interpretation Comments Eosinophils (test code = 1.0 See_Comment N [A utomated message] The Eosinophils) system which ge nerated this result tra nsmitted reference range : <=4.0. The reference r caitlin was not used to int erpret this result as normal/abnormal . [facility] CenterVbwgekaOMCLJJPSJF8856-70-91 11:10:00 Test Item Value Reference Range Interpretation Comments Large Plt (test code = Slight *ABN*(01/15/2012 A Large Plt) 05:10:00) [facility] CenterBckmyyvSDXRAUUEIT7462-64-27 11:10:00 Test Item Value Reference Range Interpretation Comments Lymphocytes (test code = Lymphocytes) 13.0 20.0-40.0 L [facility] CenterSlnqblkWNPIGZVHYQ8705-30-52 11:10:00 Test Item Value Reference Range Interpretation Comments Monocytes (test code = Monocytes) 12.0 2.0-12.0 N [facility] CenterByprgudGZEPUEWVZT3297-72-44 11:10:00 Test Item Value Reference Range Interpretation Comments Polychrom (test code = Slight (01/15/2012 N Polychrom) 05:10:00) [facility] CenterTjypzcaNNEQATTFPH3694-26-27 11:10:00 Test Item Value Reference Range Interpretation Comments Tot Cell Ct (test code = Tot Cell Ct) 100 1 [facility] CenterXdoxqgbJVTHQXFXZZ3836-07-99 11:10:00 Test Item Value Reference Range Interpretation Comments Atypical Lymphs (test code = Atypical 0.0 N Lymphs) [facility] CenterFrqhawjNRHTZYIWHI6890-40-54 11:10:00 Test Item Value Reference Range Interpretation Comments Basophils # (test code 0.1 See_Comment N [Aut omated message] The = Basophils #) system which generated this result tra nsmitted reference range : <=0.2. The reference r caitlin was not used to int erpret this result as normal/abnormal . [facility] CenterPtzaspqNBXMCBZPHY7117-24-39 11:10:00 Test Item Value Reference Range Interpretation Comments Bands (test code = 12.0 See_Comment H [Automat ed message] The Bands) system which ge nerated this result transmit pradeep reference range : <=11.0. The reference r caitlin was not used to interpr et this result as maximus l/abnormal. [facility] CenterIazfsegWDJAJKUJLJ0946-74-68 11:10:00 Test Item Value Reference Range Interpretation Comments Lymphocytes # (test code = Lymphocytes 0.9 1.0-5.5 L #) [facility] CenterWcbcyquWXLJWJBDUC8428-50-53 11:10:00 Test Item Value Reference Range Interpretation Comments Eosinophils # (test code 0.1 See_Comment N [A utomated message] The = Eosinophils #) system whic h generated this result tra nsmitted reference range : <=0.5. The reference r caitlin was not used to int erpret this result as normal/abnormal . [facility] CenterHhgzmfbYZSNVUNJKS8972-43-39 11:10:00 Test Item Value Reference Range Interpretation Comments Segs-Bands # (test code = Segs-Bands #) 5.2 1.5-8.1 N [facility] CenterJomsbhgBSGFFGXQLU1359-13-00 11:10:00 Test Item Value Reference Range Interpretation Comments Monocytes # (test code 0.9 See_Comment H [Aut omated message] The = Monocytes #) system which generated this result tra nsmitted reference range : <=0.8. The reference r caitlin was not used to int erpret this result as normal/abnormal . [facility] CenterAtonycmILJQONVHDD2322-62-43 11:10:00 Test Item Value Reference Range Interpretation Comments RDW (test code = RDW) 13.8 11.5-14.5 N [facility] CenterTzojbsaDGLPOXMKJV9051-66-79 11:10:00 Test Item Value Reference Range Interpretation Comments MPV (test code = MPV) 8.6 7.4-10.4 N [facility] CenterApqtvusLUCJOTGOBE0094-15-69 11:10:00 Test Item Value Reference Range Interpretation Comments Platelet (test code = Platelet) 306 133-450 N [facility] CenterYaqtsqtNKFGMCHWDU5481-40-60 11:10:00 Test Item Value Reference Range Interpretation Comments MCV (test code = MCV) 94.3 80.0-94.0 H [facility] CenterGdxthcoGYPMCQVAYQ3119-97-18 11:10:00 Test Item Value Reference Range Interpretation Comments MCH (test code = MCH) 32.5 pg 27.0-31.0 H [facility] CenterPdxigxhSHIWTGIYYN1736-19-23 11:10:00 Test Item Value Reference Range Interpretation Comments MCHC (test code = MCHC) 34.5 32.0-36.0 N [facility] CenterJhnpupiXURXLVRAUQ3900-38-06 11:10:00 Test Item Value Reference Range Interpretation Comments Hct (test code = Hct) 43.1 42.0-54.0 N [facility] CenterWzwsfylLJZJNLZRBT2841-84-52 11:10:00 Test Item Value Reference Range Interpretation Comments Hgb (test code = Hgb) 14.8 14.0-18.0 N [facility] CenterFtnfxxhUXVFLUFKXB6372-80-33 11:10:00 Test Item Value Reference Range Interpretation Comments WBC (test code = WBC) 7.1 3.7-10.4 N [facility] CenterIphbfqgXWJVMTDCAF5160-20-61 11:10:00 Test Item Value Reference Range Interpretation Comments RBC (test code = RBC) 4.57 4.70-6.10 L [facility] CenterYfcnporYWVLHQHUT5667-39-82 11:10:00 Test Item Value Reference Range Interpretation Comments eGFR (test code = eGFR) 71 [facility] CenterClitancLKLRCQIQO4859-70-11 11:10:00 Test Item Value Reference Range Interpretation Comments CO2 (test code = CO2) 29 24-32 N [facility] CenterUoduvxkSUGDLLOGC3386-38-17 11:10:00 Test Item Value Reference Range Interpretation Comments Glucose Lvl (test code = Glucose Lvl) 120 70-99 H [facility] CenterNmqjnufPAKDOTZBO6499-57-77 11:10:00 Test Item Value Reference Range Interpretation Comments Chloride Lvl (test code = Chloride Lvl) 103 95-109 N [facility] CenterPnzplkmMVPRAMRKO9382-99-40 11:10:00 Test Item Value Reference Range Interpretation Comments Potassium Lvl (test code = Potassium 3.9 3.5-5.1 N Lvl) [facility] CenterXuigutiKAPAHZMXY5429-50-50 11:10:00 Test Item Value Reference Range Interpretation Comments Sodium Lvl (test code = Sodium Lvl) 139 135-145 N [facility] CenterUmwrsseTNKTKPSRB3211-72-96 11:10:00 Test Item Value Reference Range Interpretation Comments Creatinine Lvl (test code = Creatinine 1.2 0.5-1.4 N Lvl) [facility] CenterQcttsugLHFAADDNM9146-14-38 11:10:00 Test Item Value Reference Range Interpretation Comments Calcium Lvl (test code = Calcium Lvl) 8.2 8.5-10.5 L [facility] CenterFortxhsZUPYYGWSY3854-83-48 11:10:00 Test Item Value Reference Range Interpretation Comments BUN (test code = BUN) 12 7-22 N [facility] CenterWdibgnuQTGQPABCL3799-09-79 11:10:00 Test Item Value Reference Range Interpretation Comments AGAP (test code = AGAP) 10.9 10.0-20.0 N [facility] CenterTcnvpyzPSYDQVNGOF6676-95-33 11:10:00 Test Item Value Reference Range Interpretation Comments Segs (test code = Segs) 61.0 45.0-75.0 N [facility] CenterYyeqbnpWSRNUECGAJ2293-92-42 11:10:00 Test Item Value Reference Range Interpretation Comments Basophils (test code = 1.0 See_Comment N [Aut omated message] The Basophils) system which ge nerated this result tra nsmitted reference range : <=1.0. The reference r caitlin was not used to int erpret this result as normal/abnormal . [facility] CenterCaphkwmWKIMPQJDXM5781-20-13 11:10:00 Test Item Value Reference Range Interpretation Comments Eosinophils (test code = 1.0 See_Comment N [A utomated message] The Eosinophils) system which ge nerated this result tra nsmitted reference range : <=4.0. The reference r caitlin was not used to int erpret this result as normal/abnormal . [facility] CenterPdzmrntVPVJWAFBME9466-27-84 11:10:00 Test Item Value Reference Range Interpretation Comments Large Plt (test code = Slight *ABN*(01/15/2012 A Large Plt) 05:10:00) [facility] CenterEmpgxltBDXIAAHTLI0810-46-07 11:10:00 Test Item Value Reference Range Interpretation Comments Lymphocytes (test code = Lymphocytes) 13.0 20.0-40.0 L [facility] CenterLghbejjUEIWIVOTMH3464-10-25 11:10:00 Test Item Value Reference Range Interpretation Comments Monocytes (test code = Monocytes) 12.0 2.0-12.0 N [facility] CenterTdqpzeeFORITCLLON2703-47-89 11:10:00 Test Item Value Reference Range Interpretation Comments Polychrom (test code = Slight (01/15/2012 N Polychrom) 05:10:00) [facility] CenterAuifbuyICVXNWIPCM3019-56-68 11:10:00 Test Item Value Reference Range Interpretation Comments Tot Cell Ct (test code = Tot Cell Ct) 100 1 [facility] CenterMqrvuxhYPVSECIMTG7642-39-53 11:10:00 Test Item Value Reference Range Interpretation Comments Atypical Lymphs (test code = Atypical 0.0 N Lymphs) [facility] CenterSposzprUCPKOFLFIL7019-61-25 11:10:00 Test Item Value Reference Range Interpretation Comments Basophils # (test code 0.1 See_Comment N [Aut omated message] The = Basophils #) system which generated this result tra nsmitted reference range : <=0.2. The reference r caitlin was not used to int erpret this result as normal/abnormal . [facility] CenterUbvfnfySJBGDHQKCP5430-35-38 11:10:00 Test Item Value Reference Range Interpretation Comments Bands (test code = 12.0 See_Comment H [Automat ed message] The Bands) system which ge nerated this result transmit pradeep reference range : <=11.0. The reference r caitlin was not used to interpr et this result as maximus l/abnormal. [facility] CenterAyktutzDGPDLBIEYM0323-21-37 11:10:00 Test Item Value Reference Range Interpretation Comments Lymphocytes # (test code = Lymphocytes 0.9 1.0-5.5 L #) [facility] CenterObepwpuSNZILFMISB7282-40-33 11:10:00 Test Item Value Reference Range Interpretation Comments Eosinophils # (test code 0.1 See_Comment N [A utomated message] The = Eosinophils #) system [facility] h generated this result tra nsmitted reference range : <=0.5. The reference r caitlin was not used to int erpret this result as normal/abnormal . [facility] CenterWhygotwXGFPIZMSOG4863-16-54 11:10:00 Test Item Value Reference Range Interpretation Comments Segs-Bands # (test code = Segs-Bands #) 5.2 1.5-8.1 N [facility] CenterUsyiuxqWMGZUVMXFK3556-56-13 11:10:00 Test Item Value Reference Range Interpretation Comments Monocytes # (test code 0.9 See_Comment H [Aut omated message] The = Monocytes #) system which generated this result tra nsmitted reference range : <=0.8. The reference r caitlin was not used to int erpret this result as normal/abnormal . [facility] CenterZlhiehwKZMCPNXROX7775-77-25 11:10:00 Test Item Value Reference Range Interpretation Comments RDW (test code = RDW) 13.8 11.5-14.5 N [facility] CenterWlbalmjKHHZUXSHPG2438-20-03 11:10:00 Test Item Value Reference Range Interpretation Comments MPV (test code = MPV) 8.6 7.4-10.4 N [facility] CenterFwwmneuOSMVBYBFIQ8864-81-81 11:10:00 Test Item Value Reference Range Interpretation Comments Platelet (test code = Platelet) 306 133-450 N [facility] CenterSxppqfqRWXFMUEFIO3444-93-63 11:10:00 Test Item Value Reference Range Interpretation Comments MCV (test code = MCV) 94.3 80.0-94.0 H [facility] CenterGsiwkncCSSSPNTAZU0532-53-66 11:10:00 Test Item Value Reference Range Interpretation Comments MCH (test code = MCH) 32.5 pg 27.0-31.0 H [facility] CenterBdwefzpEUSWYCMLDG9292-88-23 11:10:00 Test Item Value Reference Range Interpretation Comments MCHC (test code = MCHC) 34.5 32.0-36.0 N [facility] CenterLvjgkryAOLOXUHORT4977-62-08 11:10:00 Test Item Value Reference Range Interpretation Comments Hct (test code = Hct) 43.1 42.0-54.0 N [facility] CenterLuhtkzzNRJAHSFVKW4505-92-31 11:10:00 Test Item Value Reference Range Interpretation Comments Hgb (test code = Hgb) 14.8 14.0-18.0 N [facility] CenterVfmshuhFMLNMTCVDZ1147-61-24 11:10:00 Test Item Value Reference Range Interpretation Comments WBC (test code = WBC) 7.1 3.7-10.4 N [facility] CenterQugdwstXCREEOGFTS3570-83-45 11:10:00 Test Item Value Reference Range Interpretation Comments RBC (test code = RBC) 4.57 4.70-6.10 L [facility] CenterSjwtecaXWSLDJOLM2639-85-33 11:10:00 Test Item Value Reference Range Interpretation Comments eGFR (test code = eGFR) 71 [facility] CenterNmltkplZYEDYVKPQ8470-49-07 11:10:00 Test Item Value Reference Range Interpretation Comments CO2 (test code = CO2) 29 24-32 N [facility] CenterBaizcgwFLFTRGVTN3253-76-20 11:10:00 Test Item Value Reference Range Interpretation Comments Glucose Lvl (test code = Glucose Lvl) 120 70-99 H [facility] CenterQfohzvkIFVWMKPOZ8640-40-11 11:10:00 Test Item Value Reference Range Interpretation Comments Chloride Lvl (test code = Chloride Lvl) 103 95-109 N [facility] CenterBmvnbkpETEZDPCTI3839-02-36 11:10:00 Test Item Value Reference Range Interpretation Comments Potassium Lvl (test code = Potassium 3.9 3.5-5.1 N Lvl) [facility] CenterVvfdmbeNHEOSWLCY0391-94-65 11:10:00 Test Item Value Reference Range Interpretation Comments Sodium Lvl (test code = Sodium Lvl) 139 135-145 N [facility] CenterHnjrrybZJXBMWKQE0303-15-51 11:10:00 Test Item Value Reference Range Interpretation Comments Creatinine Lvl (test code = Creatinine 1.2 0.5-1.4 N Lvl) [facility] CenterZaacjuhJGXWKWAVP9372-18-24 11:10:00 Test Item Value Reference Range Interpretation Comments Calcium Lvl (test code = Calcium Lvl) 8.2 8.5-10.5 L [facility] CenterFpzvcmwKUDRXDMRV9963-81-25 11:10:00 Test Item Value Reference Range Interpretation Comments BUN (test code = BUN) 12 7-22 N [facility] CenterYmtylltWUBYHXZEJ8620-73-04 11:10:00 Test Item Value Reference Range Interpretation Comments AGAP (test code = AGAP) 10.9 10.0-20.0 N [facility] CenterStcaxcyAYYAUNZXUQ9239-53-56 11:10:00 Test Item Value Reference Range Interpretation Comments Segs (test code = Segs) 61.0 45.0-75.0 N [facility] CenterXwuohlbPGFEEKXIBT8355-19-52 11:10:00 Test Item Value Reference Range Interpretation Comments Basophils (test code = 1.0 See_Comment N [Aut omated message] The Basophils) system which ge nerated this result tra nsmitted reference range : <=1.0. The reference r caitlin was not used to int erpret this result as normal/abnormal . [facility] CenterJuduuzbQMZAKKNAQU4301-38-31 11:10:00 Test Item Value Reference Range Interpretation Comments Eosinophils (test code = 1.0 See_Comment N [A utomated message] The Eosinophils) system which ge nerated this result tra nsmitted reference range : <=4.0. The reference r caitlin was not used to int erpret this result as normal/abnormal . [facility] CenterCrwllrfZTJKSDUUOH1513-25-85 11:10:00 Test Item Value Reference Range Interpretation Comments Large Plt (test code = Slight *ABN*(01/15/2012 A Large Plt) 05:10:00) [facility] CenterCowkkwrIFEYTNKPXM6367-41-11 11:10:00 Test Item Value Reference Range Interpretation Comments Lymphocytes (test code = Lymphocytes) 13.0 20.0-40.0 L [facility] CenterPyehgutBYEHOQHONZ7852-72-12 11:10:00 Test Item Value Reference Range Interpretation Comments Monocytes (test code = Monocytes) 12.0 2.0-12.0 N [facility] CenterHvczszfDYZCVCNETR6704-28-83 11:10:00 Test Item Value Reference Range Interpretation Comments Polychrom (test code = Slight (01/15/2012 N Polychrom) 05:10:00) [facility] CenterTsoklnvLIRPUJEQML5099-50-26 11:10:00 Test Item Value Reference Range Interpretation Comments Tot Cell Ct (test code = Tot Cell Ct) 100 1 [facility] CenterOahpdkkELYGNJEEXH6884-41-61 11:10:00 Test Item Value Reference Range Interpretation Comments Atypical Lymphs (test code = Atypical 0.0 N Lymphs) [facility] CenterOcpfqqwAOUFHDZWJC6703-45-82 11:10:00 Test Item Value Reference Range Interpretation Comments Basophils # (test code 0.1 See_Comment N [Aut omated message] The = Basophils #) system which generated this result tra nsmitted reference range : <=0.2. The reference r caitlin was not used to int erpret this result as normal/abnormal . [facility] CenterSecemvkFBAOOFAXFD4290-51-98 11:10:00 Test Item Value Reference Range Interpretation Comments Bands (test code = 12.0 See_Comment H [Automat ed message] The Bands) system which ge nerated this result transmit pradeep reference range : <=11.0. The reference r caitlin was not used to interpr et this result as maximus l/abnormal. [facility] CenterLcdwvfyMUFHANOYUI6982-44-92 11:10:00 Test Item Value Reference Range Interpretation Comments Lymphocytes # (test code = Lymphocytes 0.9 1.0-5.5 L #) [facility] CenterGiwlibmJNAUXPNQTK1455-28-55 11:10:00 Test Item Value Reference Range Interpretation Comments Eosinophils # (test code 0.1 See_Comment N [A utomated message] The = Eosinophils #) system ic h generated this result tra nsmitted reference range : <=0.5. The reference r caitlin was not used to int erpret this result as normal/abnormal . [facility] CenterUiyuihpTYLUOBVNXU1347-40-59 11:10:00 Test Item Value Reference Range Interpretation Comments Segs-Bands # (test code = Segs-Bands #) 5.2 1.5-8.1 N [facility] CenterEgowhnyIRVLNNWAVM9949-02-56 11:10:00 Test Item Value Reference Range Interpretation Comments Monocytes # (test code 0.9 See_Comment H [Aut omated message] The = Monocytes #) system which generated this result tra nsmitted reference range : <=0.8. The reference r caitlin was not used to int erpret this result as normal/abnormal . [facility] CenterUcxthiiUNZUVLTCCJ6996-43-43 11:10:00 Test Item Value Reference Range Interpretation Comments RDW (test code = RDW) 13.8 11.5-14.5 N [facility] CenterRpkbmukACQJHGDWTJ8778-32-97 11:10:00 Test Item Value Reference Range Interpretation Comments MPV (test code = MPV) 8.6 7.4-10.4 N [facility] CenterRcawbwhEASZEXOUIL0745-17-07 11:10:00 Test Item Value Reference Range Interpretation Comments Platelet (test code = Platelet) 306 133-450 N [facility] CenterTibrslfADKSDUOHME6762-20-50 11:10:00 Test Item Value Reference Range Interpretation Comments MCV (test code = MCV) 94.3 80.0-94.0 H [facility] CenterFsrjgvcJDVCNKECKD7568-63-86 11:10:00 Test Item Value Reference Range Interpretation Comments MCH (test code = MCH) 32.5 pg 27.0-31.0 H [facility] CenterXcfrenlUETDDQMVQH4412-69-74 11:10:00 Test Item Value Reference Range Interpretation Comments MCHC (test code = MCHC) 34.5 32.0-36.0 N [facility] CenterPxollhzASZSBECPKZ4108-15-70 11:10:00 Test Item Value Reference Range Interpretation Comments Hct (test code = Hct) 43.1 42.0-54.0 N [facility] CenterIrexyrwSTLZSADSRW0835-59-82 11:10:00 Test Item Value Reference Range Interpretation Comments Hgb (test code = Hgb) 14.8 14.0-18.0 N [facility] CenterHuokdchLFEPFGILMI4165-56-06 11:10:00 Test Item Value Reference Range Interpretation Comments WBC (test code = WBC) 7.1 3.7-10.4 N [facility] CenterQpqlwayWWGKFCOOIN2827-14-04 11:10:00 Test Item Value Reference Range Interpretation Comments RBC (test code = RBC) 4.57 4.70-6.10 L [facility] CenterFsmxnbcCKXSJZJNH4143-81-04 11:10:00 Test Item Value Reference Range Interpretation Comments eGFR (test code = eGFR) 71 [facility] CenterPmfqbnuDYGOHHTSQ7975-15-26 11:10:00 Test Item Value Reference Range Interpretation Comments CO2 (test code = CO2) 29 24-32 N [facility] CenterHbbqcvvJFPUTPOGT1351-19-40 11:10:00 Test Item Value Reference Range Interpretation Comments Glucose Lvl (test code = Glucose Lvl) 120 70-99 H [facility] CenterDwwbnoiLYGWEYMZC6005-12-37 11:10:00 Test Item Value Reference Range Interpretation Comments Chloride Lvl (test code = Chloride Lvl) 103 95-109 N [facility] CenterLarfzicPKPZOYZHB2083-64-26 11:10:00 Test Item Value Reference Range Interpretation Comments Potassium Lvl (test code = Potassium 3.9 3.5-5.1 N Lvl) [facility] CenterAvsahjeTACQBMKCE1607-71-83 11:10:00 Test Item Value Reference Range Interpretation Comments Sodium Lvl (test code = Sodium Lvl) 139 135-145 N [facility] CenterYqroeldWDZDPNIGI3108-21-04 11:10:00 Test Item Value Reference Range Interpretation Comments Creatinine Lvl (test code = Creatinine 1.2 0.5-1.4 N Lvl) [facility] CenterIsqocpfJCZCIGZON6716-54-09 11:10:00 Test Item Value Reference Range Interpretation Comments Calcium Lvl (test code = Calcium Lvl) 8.2 8.5-10.5 L [facility] CenterGgweqjfYAZUYZCTM6059-86-47 11:10:00 Test Item Value Reference Range Interpretation Comments BUN (test code = BUN) 12 7-22 N [facility] CenterBdxwmqfURLVZIQPT6145-26-69 11:10:00 Test Item Value Reference Range Interpretation Comments AGAP (test code = AGAP) 10.9 10.0-20.0 N [facility] CenterKervyakKILKDFMILK6789-70-10 11:10:00 Test Item Value Reference Range Interpretation Comments Segs (test code = Segs) 61.0 45.0-75.0 N [facility] CenterDrplkxxLMKTOKYVSH6441-19-12 11:10:00 Test Item Value Reference Range Interpretation Comments Basophils (test code = 1.0 See_Comment N [Aut omated message] The Basophils) system which ge nerated this result tra nsmitted reference range : <=1.0. The reference r caitlin was not used to int erpret this result as normal/abnormal . [facility] CenterHpupmrgBTRGRTBCKR1104-70-54 11:10:00 Test Item Value Reference Range Interpretation Comments Eosinophils (test code = 1.0 See_Comment N [A utomated message] The Eosinophils) system which ge nerated this result tra nsmitted reference range : <=4.0. The reference r caitlin was not used to int erpret this result as normal/abnormal . [facility] CenterNayxcutQZBZIWSXJY5804-32-22 11:10:00 Test Item Value Reference Range Interpretation Comments Large Plt (test code = Slight *ABN*(01/15/2012 A Large Plt) 05:10:00) [facility] CenterVnamithZFHGKYFKOH5271-38-67 11:10:00 Test Item Value Reference Range Interpretation Comments Lymphocytes (test code = Lymphocytes) 13.0 20.0-40.0 L [facility] CenterDmdqbrsUUUNPFUURF3765-20-79 11:10:00 Test Item Value Reference Range Interpretation Comments Monocytes (test code = Monocytes) 12.0 2.0-12.0 N [facility] CenterOxbfkcmCDAFIKSVXW2468-71-30 11:10:00 Test Item Value Reference Range Interpretation Comments Polychrom (test code = Slight (01/15/2012 N Polychrom) 05:10:00) [facility] CenterUancqkjXJIJUTPXCB9342-64-41 11:10:00 Test Item Value Reference Range Interpretation Comments Tot Cell Ct (test code = Tot Cell Ct) 100 1 [facility] CenterExfsfowTHCFIOMPAQ9134-24-31 11:10:00 Test Item Value Reference Range Interpretation Comments Atypical Lymphs (test code = Atypical 0.0 N Lymphs) [facility] CenterAqbdjtoFRDSBLQWOW9665-21-41 11:10:00 Test Item Value Reference Range Interpretation Comments Basophils # (test code 0.1 See_Comment N [Aut omated message] The = Basophils #) system which generated this result tra nsmitted reference range : <=0.2. The reference r caitlin was not used to int erpret this result as normal/abnormal . [facility] CenterHrynxviLQNDZMEUDX2612-35-81 11:10:00 Test Item Value Reference Range Interpretation Comments Bands (test code = 12.0 See_Comment H [Automat ed message] The Bands) system which ge nerated this result transmit pradeep reference range : <=11.0. The reference r caitlin was not used to interpr et this result as maximus l/abnormal. [facility] CenterYibsutzZKARCVEHHA6644-90-27 11:10:00 Test Item Value Reference Range Interpretation Comments Lymphocytes # (test code = Lymphocytes 0.9 1.0-5.5 L #) [facility] CenterQirfhajCHAOPAWYML0040-36-50 11:10:00 Test Item Value Reference Range Interpretation Comments Eosinophils # (test code 0.1 See_Comment N [A utomated message] The = Eosinophils #) system whic h generated this result tra nsmitted reference range : <=0.5. The reference r caitlin was not used to int erpret this result as normal/abnormal . [facility] CenterOksnezqHPGMMZXBVH6099-66-97 11:10:00 Test Item Value Reference Range Interpretation Comments Segs-Bands # (test code = Segs-Bands #) 5.2 1.5-8.1 N [facility] CenterQdlntnmFYICDPWUND5947-03-97 11:10:00 Test Item Value Reference Range Interpretation Comments Monocytes # (test code 0.9 See_Comment H [Aut omated message] The = Monocytes #) system which generated this result tra nsmitted reference range : <=0.8. The reference r caitlin was not used to int erpret this result as normal/abnormal . [facility] CenterTtuozbpZLQYPZXBIV6421-56-10 11:10:00 Test Item Value Reference Range Interpretation Comments RDW (test code = RDW) 13.8 11.5-14.5 N [facility] CenterMvtvshwBIZDUKZICV8987-16-45 11:10:00 Test Item Value Reference Range Interpretation Comments MPV (test code = MPV) 8.6 7.4-10.4 N [facility] CenterYtdutneNDGEHYVDIG1633-63-63 11:10:00 Test Item Value Reference Range Interpretation Comments Platelet (test code = Platelet) 306 133-450 N [facility] CenterObbjyciBLRLHLQJSE6386-79-86 11:10:00 Test Item Value Reference Range Interpretation Comments MCV (test code = MCV) 94.3 80.0-94.0 H [facility] CenterNjnmsykQATPKYMYVG0860-24-52 11:10:00 Test Item Value Reference Range Interpretation Comments MCH (test code = MCH) 32.5 pg 27.0-31.0 H [facility] CenterHlbannzSRDDEXYSQN3419-97-44 11:10:00 Test Item Value Reference Range Interpretation Comments MCHC (test code = MCHC) 34.5 32.0-36.0 N [facility] CenterFnqwmbuTEUDYPPIPP4455-96-53 11:10:00 Test Item Value Reference Range Interpretation Comments Hct (test code = Hct) 43.1 42.0-54.0 N [facility] CenterQrcakxrSCVYNITNPP6663-47-08 11:10:00 Test Item Value Reference Range Interpretation Comments Hgb (test code = Hgb) 14.8 14.0-18.0 N [facility] CenterNxotyczQJQDDRUXIS9223-57-02 11:10:00 Test Item Value Reference Range Interpretation Comments WBC (test code = WBC) 7.1 3.7-10.4 N [facility] CenterVkpshtnATPSIPYRJC2262-40-53 11:10:00 Test Item Value Reference Range Interpretation Comments RBC (test code = RBC) 4.57 4.70-6.10 L [facility] CenterNzsajaiVHYWXBMNM1620-75-87 11:10:00 Test Item Value Reference Range Interpretation Comments eGFR (test code = eGFR) 71 [facility] CenterBrbvaplCSALXIHLA7757-79-88 11:10:00 Test Item Value Reference Range Interpretation Comments CO2 (test code = CO2) 29 24-32 N [facility] CenterMbijllbNETPFOFZK5914-52-34 11:10:00 Test Item Value Reference Range Interpretation Comments Glucose Lvl (test code = Glucose Lvl) 120 70-99 H [facility] CenterQupvmmoXMBCCUIAA4071-38-93 11:10:00 Test Item Value Reference Range Interpretation Comments Chloride Lvl (test code = Chloride Lvl) 103 95-109 N [facility] CenterBhcflhqTUNKVNVHT3925-99-41 11:10:00 Test Item Value Reference Range Interpretation Comments Potassium Lvl (test code = Potassium 3.9 3.5-5.1 N Lvl) [facility] CenterDwtyeihYIPQEOYJU7460-37-77 11:10:00 Test Item Value Reference Range Interpretation Comments Sodium Lvl (test code = Sodium Lvl) 139 135-145 N [facility] CenterHuftyghIEGLBLZGA3083-85-58 11:10:00 Test Item Value Reference Range Interpretation Comments Creatinine Lvl (test code = Creatinine 1.2 0.5-1.4 N Lvl) [facility] CenterMqdttqxPWBOLEFVI1797-65-84 11:10:00 Test Item Value Reference Range Interpretation Comments Calcium Lvl (test code = Calcium Lvl) 8.2 8.5-10.5 L [facility] CenterMgpxxstURHVGVTGQ6859-68-43 11:10:00 Test Item Value Reference Range Interpretation Comments BUN (test code = BUN) 12 7-22 N [facility] CenterHetennuDCESKNQPX8083-39-11 11:10:00 Test Item Value Reference Range Interpretation Comments AGAP (test code = AGAP) 10.9 10.0-20.0 N [facility] CenterVizfybpKNXGNYTCXW3040-14-71 11:10:00 Test Item Value Reference Range Interpretation Comments Segs (test code = Segs) 61.0 45.0-75.0 N [facility] CenterEtehalhTJFWPSDZLM6503-83-27 11:10:00 Test Item Value Reference Range Interpretation Comments Basophils (test code = 1.0 See_Comment N [Aut omated message] The Basophils) system which ge nerated this result tra nsmitted reference range : <=1.0. The reference r caitlin was not used to int erpret this result as normal/abnormal . [facility] CenterUtnyrnrJAWROQFWQY9409-30-23 11:10:00 Test Item Value Reference Range Interpretation Comments Eosinophils (test code = 1.0 See_Comment N [A utomated message] The Eosinophils) system which ge nerated this result tra nsmitted reference range : <=4.0. The reference r caitlin was not used to int erpret this result as normal/abnormal . [facility] CenterEunqmzwPYQPISKBXY6075-33-99 11:10:00 Test Item Value Reference Range Interpretation Comments Large Plt (test code = Slight *ABN*(01/15/2012 A Large Plt) 05:10:00) [facility] CenterWtcrvglRHBCNCBQWL5669-10-71 11:10:00 Test Item Value Reference Range Interpretation Comments Lymphocytes (test code = Lymphocytes) 13.0 20.0-40.0 L [facility] CenterHetxkvfBLQBFSKEJV7487-72-47 11:10:00 Test Item Value Reference Range Interpretation Comments Monocytes (test code = Monocytes) 12.0 2.0-12.0 N [facility] CenterQfylzyuAYNMKKWESP1717-02-82 11:10:00 Test Item Value Reference Range Interpretation Comments Polychrom (test code = Slight (01/15/2012 N Polychrom) 05:10:00) [facility] CenterLvlwkquKLTLDQXUJL5710-16-25 11:10:00 Test Item Value Reference Range Interpretation Comments Tot Cell Ct (test code = Tot Cell Ct) 100 1 [facility] CenterXyoosxdQBNDVTACVU7273-34-64 11:10:00 Test Item Value Reference Range Interpretation Comments Atypical Lymphs (test code = Atypical 0.0 N Lymphs) [facility] CenterGmlflapJPEVWDPXWE1341-85-96 11:10:00 Test Item Value Reference Range Interpretation Comments Basophils # (test code 0.1 See_Comment N [Aut omated message] The = Basophils #) system which generated this result tra nsmitted reference range : <=0.2. The reference r caitlin was not used to int erpret this result as normal/abnormal . [facility] CenterQjizkurPXRQVFPSQR2979-37-39 11:10:00 Test Item Value Reference Range Interpretation Comments Bands (test code = 12.0 See_Comment H [Automat ed message] The Bands) system which ge nerated this result transmit pradeep reference range : <=11.0. The reference r caitlin was not used to interpr et this result as maximus l/abnormal. [facility] CenterEvzjmgpIJJOVMVEXU1458-54-72 11:10:00 Test Item Value Reference Range Interpretation Comments Lymphocytes # (test code = Lymphocytes 0.9 1.0-5.5 L #) [facility] CenterWkbbiimNOHHIWQVMD8734-22-39 11:10:00 Test Item Value Reference Range Interpretation Comments Eosinophils # (test code 0.1 See_Comment N [A utomated message] The = Eosinophils #) system whic h generated this result tra nsmitted reference range : <=0.5. The reference r caitlin was not used to int erpret this result as normal/abnormal . [facility] CenterIpocnkrZPIYWBDBHT8263-66-21 11:10:00 Test Item Value Reference Range Interpretation Comments Segs-Bands # (test code = Segs-Bands #) 5.2 1.5-8.1 N [facility] CenterLhmuweeRZSNESAOZM3284-65-97 11:10:00 Test Item Value Reference Range Interpretation Comments Monocytes # (test code 0.9 See_Comment H [Aut omated message] The = Monocytes #) system which generated this result tra nsmitted reference range : <=0.8. The reference r caitlin was not used to int erpret this result as normal/abnormal . [facility] CenterLcsibkxKBEXPWZCHA5981-07-56 11:10:00 Test Item Value Reference Range Interpretation Comments RDW (test code = RDW) 13.8 11.5-14.5 N [facility] CenterXmklzozTBDAQBTSJQ4089-03-83 11:10:00 Test Item Value Reference Range Interpretation Comments MPV (test code = MPV) 8.6 7.4-10.4 N [facility] CenterGcyeaypSEWOLUFTHM2308-89-65 11:10:00 Test Item Value Reference Range Interpretation Comments Platelet (test code = Platelet) 306 133-450 N [facility] CenterLscvublWVPTMMCENE4291-49-76 11:10:00 Test Item Value Reference Range Interpretation Comments MCV (test code = MCV) 94.3 80.0-94.0 H [facility] CenterWxeqlmmKXBQWBZYKR7238-03-25 11:10:00 Test Item Value Reference Range Interpretation Comments MCH (test code = MCH) 32.5 pg 27.0-31.0 H [facility] CenterJguygvsDMZTFLBVUF0650-01-03 11:10:00 Test Item Value Reference Range Interpretation Comments MCHC (test code = MCHC) 34.5 32.0-36.0 N [facility] CenterXxkrydbYSYHFOIHQZ3478-53-62 11:10:00 Test Item Value Reference Range Interpretation Comments Hct (test code = Hct) 43.1 42.0-54.0 N [facility] CenterKbcygqhVAPWXDAENP7047-57-88 11:10:00 Test Item Value Reference Range Interpretation Comments Hgb (test code = Hgb) 14.8 14.0-18.0 N [facility] CenterInmlbdzRAVWKUDJKI7245-71-37 11:10:00 Test Item Value Reference Range Interpretation Comments WBC (test code = WBC) 7.1 3.7-10.4 N [facility] CenterUaukffmKQPOXNDYMZ1804-91-81 11:10:00 Test Item Value Reference Range Interpretation Comments RBC (test code = RBC) 4.57 4.70-6.10 [facility]KzprtijZOSXWVZVN2087-62-99 11:10:00 Test Item Value Reference Range Interpretation Comments eGFR (test code = eGFR) 71 [facility] CenterEcgdkocDJMFDCZID5936-00-62 11:10:00 Test Item Value Reference Range Interpretation Comments CO2 (test code = CO2) 29 24-32 N [facility] CenterVisubevUVMULFWGK0608-32-97 11:10:00 Test Item Value Reference Range Interpretation Comments Glucose Lvl (test code = Glucose Lvl) 120 70-99 H [facility] CenterGjzflczKJOSOPHKY1517-80-36 11:10:00 Test Item Value Reference Range Interpretation Comments Chloride Lvl (test code = Chloride Lvl) 103 95-109 N [facility] CenterKhbgmrbGCMZNPCGZ6457-15-43 11:10:00 Test Item Value Reference Range Interpretation Comments Potassium Lvl (test code = Potassium 3.9 3.5-5.1 N Lvl) [facility] CenterLxrelydIKNJDKFHZ0481-18-44 11:10:00 Test Item Value Reference Range Interpretation Comments Sodium Lvl (test code = Sodium Lvl) 139 135-145 N [facility] CenterPvzjcqeDFFLMUMFK2344-20-34 11:10:00 Test Item Value Reference Range Interpretation Comments Creatinine Lvl (test code = Creatinine 1.2 0.5-1.4 N Lvl) [facility] CenterVyqztvxGLNBNMPJY6323-65-65 11:10:00 Test Item Value Reference Range Interpretation Comments Calcium Lvl (test code = Calcium Lvl) 8.2 8.5-10.5 L [facility] CenterYxqkggeJVCJYTKFF9587-06-73 11:10:00 Test Item Value Reference Range Interpretation Comments BUN (test code = BUN) 12 7-22 N [facility] CenterUfyjdfvYHFGZEXTV2278-03-76 11:10:00 Test Item Value Reference Range Interpretation Comments AGAP (test code = AGAP) 10.9 10.0-20.0 N [facility] CenterVdlwustSWWJZZVWGA8477-08-04 11:10:00 Test Item Value Reference Range Interpretation Comments Segs (test code = Segs) 61.0 45.0-75.0 N [facility] CenterTgxjzlvTENQHUPLRO5539-42-65 11:10:00 Test Item Value Reference Range Interpretation Comments Basophils (test code = 1.0 See_Comment N [Aut omated message] The Basophils) system which nerated this result tra nsmitted reference range : <=1.0. The reference r caitlin was not used to int erpret this result as normal/abnormal . [facility] CenterDuflwgrEMQUNYRKDE5991-11-10 11:10:00 Test Item Value Reference Range Interpretation Comments Eosinophils (test code = 1.0 See_Comment N [A utomated message] The Eosinophils) system which ge nerated this result tra nsmitted reference range : <=4.0. The reference r caitlin was not used to int erpret this result as normal/abnormal . [facility] CenterNgdnfzkRXBGYMVGSA9706-04-05 11:10:00 Test Item Value Reference Range Interpretation Comments Large Plt (test code = Slight *ABN*(01/15/2012 A Large Plt) 05:10:00) [facility] CenterQhskqtjNDYSDCKPSW1230-85-28 11:10:00 Test Item Value Reference Range Interpretation Comments Lymphocytes (test code = Lymphocytes) 13.0 20.0-40.0 L [facility] CenterUcksjhzAWMISQOKON4364-64-24 11:10:00 Test Item Value Reference Range Interpretation Comments Monocytes (test code = Monocytes) 12.0 2.0-12.0 N [facility] CenterQwrsfjtJCVXUQZGKE6276-88-14 11:10:00 Test Item Value Reference Range Interpretation Comments Polychrom (test code = Slight (01/15/2012 N Polychrom) 05:10:00) [facility] CenterBzvfteeNJFBGXPEBP3561-09-44 11:10:00 Test Item Value Reference Range Interpretation Comments Tot Cell Ct (test code = Tot Cell Ct) 100 1 [facility] CenterAclhvgwOLDHWLVCHZ9758-03-40 11:10:00 Test Item Value Reference Range Interpretation Comments Atypical Lymphs (test code = Atypical 0.0 N Lymphs) [facility] CenterJdjurneIUUVDXAGRG3742-06-52 11:10:00 Test Item Value Reference Range Interpretation Comments Basophils # (test code 0.1 See_Comment N [Aut omated message] The = Basophils #) system which generated this result tra nsmitted reference range : <=0.2. The reference r caitlin was not used to int erpret this result as normal/abnormal . [facility] CenterScjkemyZUVTMFHKAT6792-90-29 11:10:00 Test Item Value Reference Range Interpretation Comments Bands (test code = 12.0 See_Comment H [Automat ed message] The Bands) system which ge nerated this result transmit pradeep reference range : <=11.0. The reference r caitlin was not used to interpr et this result as maximus l/abnormal. [facility] CenterHfmjwnuPPMPDWTLXU0731-76-71 11:10:00 Test Item Value Reference Range Interpretation Comments Lymphocytes # (test code = Lymphocytes 0.9 1.0-5.5 L #) [facility] CenterRzxivhlWSYJQBNZGR5001-17-91 11:10:00 Test Item Value Reference Range Interpretation Comments Eosinophils # (test code 0.1 See_Comment N [A utomated message] The = Eosinophils #) system whic h generated this result tra nsmitted reference range : <=0.5. The reference r caitlin was not used to int erpret this result as normal/abnormal . [facility] CenterIleczpfTICNVRMGXX0696-11-46 11:10:00 Test Item Value Reference Range Interpretation Comments Segs-Bands # (test code = Segs-Bands #) 5.2 1.5-8.1 N [facility] CenterJycxpjzSGKQVRSQJV6438-25-53 11:10:00 Test Item Value Reference Range Interpretation Comments Monocytes # (test code 0.9 See_Comment H [Aut omated message] The = Monocytes #) system which generated this result tra nsmitted reference range : <=0.8. The reference r caitlin was not used to int erpret this result as normal/abnormal . [facility] CenterQetrqqjRITNVGCWRW6076-91-37 11:10:00 Test Item Value Reference Range Interpretation Comments RDW (test code = RDW) 13.8 11.5-14.5 N [facility] CenterUlwgwroJORDYMWYUX4766-71-86 11:10:00 Test Item Value Reference Range Interpretation Comments MPV (test code = MPV) 8.6 7.4-10.4 N [facility] CenterHzmncxeBUSWTCDOYK8492-10-85 11:10:00 Test Item Value Reference Range Interpretation Comments Platelet (test code = Platelet) 306 133-450 N [facility] CenterEvpsgleANHWUQBZDH8226-88-54 11:10:00 Test Item Value Reference Range Interpretation Comments MCV (test code = MCV) 94.3 80.0-94.0 H [facility] CenterBxzlkotZFTHSPZBYK5973-65-06 11:10:00 Test Item Value Reference Range Interpretation Comments MCH (test code = MCH) 32.5 pg 27.0-31.0 H [facility] CenterQowmuchMGKJUWIZDF9424-93-54 11:10:00 Test Item Value Reference Range Interpretation Comments MCHC (test code = MCHC) 34.5 32.0-36.0 N [facility] CenterCvrnytzMJWAWZQVKK6469-98-74 11:10:00 Test Item Value Reference Range Interpretation Comments Hct (test code = Hct) 43.1 42.0-54.0 N [facility] CenterToyjlhbAPKWNSYXUC1071-15-37 11:10:00 Test Item Value Reference Range Interpretation Comments Hgb (test code = Hgb) 14.8 14.0-18.0 N [facility] CenterXztsopeKLKCJVNDAT6259-06-37 11:10:00 Test Item Value Reference Range Interpretation Comments WBC (test code = WBC) 7.1 3.7-10.4 N [facility] CenterCtowhecNZMVCYQYHT4428-73-89 11:10:00 Test Item Value Reference Range Interpretation Comments RBC (test code = RBC) 4.57 4.70-6.10 L [facility] CenterJwjhyfbEQAPSRYUM7885-67-98 11:10:00 Test Item Value Reference Range Interpretation Comments eGFR (test code = eGFR) 71 [facility] CenterEkxpyvsFNRHWIHXH8534-79-40 11:10:00 Test Item Value Reference Range Interpretation Comments CO2 (test code = CO2) 29 24-32 N [facility] CenterDglsvvhWQXSEZCXR8432-70-68 11:10:00 Test Item Value Reference Range Interpretation Comments Glucose Lvl (test code = Glucose Lvl) 120 70-99 H [facility] CenterQoqjmjyXXGVNRZON5089-84-53 11:10:00 Test Item Value Reference Range Interpretation Comments Chloride Lvl (test code = Chloride Lvl) 103 95-109 N [facility] CenterAeckrubPFUNNVJXB7458-49-77 11:10:00 Test Item Value Reference Range Interpretation Comments Potassium Lvl (test code = Potassium 3.9 3.5-5.1 N Lvl) [facility] CenterCaiwdajRNENTRWEX2153-50-00 11:10:00 Test Item Value Reference Range Interpretation Comments Sodium Lvl (test code = Sodium Lvl) 139 135-145 N [facility] CenterMinllxoHOAMPAAKM0918-85-62 11:10:00 Test Item Value Reference Range Interpretation Comments Creatinine Lvl (test code = Creatinine 1.2 0.5-1.4 N Lvl) [facility] CenterSwlseulRKVLQXJDA5973-58-91 11:10:00 Test Item Value Reference Range Interpretation Comments Calcium Lvl (test code = Calcium Lvl) 8.2 8.5-10.5 L [facility] CenterRzeornrFFVFDUFUF3251-25-12 11:10:00 Test Item Value Reference Range Interpretation Comments BUN (test code = BUN) 12 7-22 N [facility] CenterNuvmgsxRGZIWBWSH5784-14-62 11:10:00 Test Item Value Reference Range Interpretation Comments AGAP (test code = AGAP) 10.9 10.0-20.0 N [facility] CenterHqdflmnDUGBRDMCLY1097-44-12 11:10:00 Test Item Value Reference Range Interpretation Comments Segs (test code = Segs) 61.0 45.0-75.0 N [facility] CenterTvlgubgYGIKJYLQMF6717-38-02 11:10:00 Test Item Value Reference Range Interpretation Comments Basophils (test code = 1.0 See_Comment N [Aut omated message] The Basophils) system which ge nerated this result tra nsmitted reference range : <=1.0. The reference r caitlin was not used to int erpret this result as normal/abnormal . [facility] CenterXaqkklpMYNFGAOIZR8619-11-30 11:10:00 Test Item Value Reference Range Interpretation Comments Eosinophils (test code = 1.0 See_Comment N [A utomated message] The Eosinophils) system which ge nerated this result tra nsmitted reference range : <=4.0. The reference r caitlin was not used to int erpret this result as normal/abnormal . [facility] CenterIrqhaddJABNOTAQHI7460-87-19 11:10:00 Test Item Value Reference Range Interpretation Comments Large Plt (test code = Slight *ABN*(01/15/2012 A Large Plt) 05:10:00) [facility] CenterUxevgsnBPAHRBNUWB7205-45-77 11:10:00 Test Item Value Reference Range Interpretation Comments Lymphocytes (test code = Lymphocytes) 13.0 20.0-40.0 L [facility] CenterZyjuucbMTBESZGGFC4672-38-52 11:10:00 Test Item Value Reference Range Interpretation Comments Monocytes (test code = Monocytes) 12.0 2.0-12.0 N [facility] CenterXqpbrruBIKRQUDCUV5919-29-47 11:10:00 Test Item Value Reference Range Interpretation Comments Polychrom (test code = Slight (01/15/2012 N Polychrom) 05:10:00) [facility] CenterFjqrjubLPXQNGDQOT3805-16-63 11:10:00 Test Item Value Reference Range Interpretation Comments Tot Cell Ct (test code = Tot Cell Ct) 100 1 [facility] CenterTsqiourJAAGPVGSZH6889-46-93 11:10:00 Test Item Value Reference Range Interpretation Comments Atypical Lymphs (test code = Atypical 0.0 N Lymphs) [facility] CenterXmatvwpOYDACMQYUA9313-73-87 11:10:00 Test Item Value Reference Range Interpretation Comments Basophils # (test code 0.1 See_Comment N [Aut omated message] The = Basophils #) system which generated this result tra nsmitted reference range : <=0.2. The reference r caitlin was not used to int erpret this result as normal/abnormal . [facility] CenterFhivgapRRFZAVCWPS4699-65-37 11:10:00 Test Item Value Reference Range Interpretation Comments Bands (test code = 12.0 See_Comment H [Automat ed message] The Bands) system which ge nerated this result transmit pradeep reference range : <=11.0. The reference r caitlin was not used to interpr et this result as maximus l/abnormal. [facility] CenterWrfcbdgQENSWWAZEA5980-85-93 11:10:00 Test Item Value Reference Range Interpretation Comments Lymphocytes # (test code = Lymphocytes 0.9 1.0-5.5 L #) [facility] CenterVjtdpbcYKQTWBLISG0569-98-14 11:10:00 Test Item Value Reference Range Interpretation Comments Eosinophils # (test code 0.1 See_Comment N [A utomated message] The = Eosinophils #) system whic h generated this result tra nsmitted reference range : <=0.5. The reference r caitlin was not used to int erpret this result as normal/abnormal . [facility] CenterYxmtpysVGUYIANNHZ3843-25-45 11:10:00 Test Item Value Reference Range Interpretation Comments Segs-Bands # (test code = Segs-Bands #) 5.2 1.5-8.1 N [facility] CenterSbmcvcrZQWSNLOKWJ8792-37-45 11:10:00 Test Item Value Reference Range Interpretation Comments Monocytes # (test code 0.9 See_Comment H [Aut omated message] The = Monocytes #) system which generated this result tra nsmitted reference range : <=0.8. The reference r caitlin was not used to int erpret this result as normal/abnormal . [facility] CenterAjsxcnsBMWMGKYKQV0818-23-81 11:10:00 Test Item Value Reference Range Interpretation Comments RDW (test code = RDW) 13.8 11.5-14.5 N [facility] CenterGqpxqhpAFPODARNSV2646-75-78 11:10:00 Test Item Value Reference Range Interpretation Comments MPV (test code = MPV) 8.6 7.4-10.4 N [facility] CenterMmxojkoFOTIDXETKR7429-06-07 11:10:00 Test Item Value Reference Range Interpretation Comments Platelet (test code = Platelet) 306 133-450 N [facility] CenterPcbiswwZDULHGVASZ0686-58-11 11:10:00 Test Item Value Reference Range Interpretation Comments MCV (test code = MCV) 94.3 80.0-94.0 H [facility] CenterExcyvdvAGIXQSMFVZ9426-06-85 11:10:00 Test Item Value Reference Range Interpretation Comments MCH (test code = MCH) 32.5 pg 27.0-31.0 H [facility] CenterZrrohjtOPDHGICJKP9763-33-24 11:10:00 Test Item Value Reference Range Interpretation Comments MCHC (test code = MCHC) 34.5 32.0-36.0 N [facility] CenterNwdveklMOYWCCTTZK2099-29-34 11:10:00 Test Item Value Reference Range Interpretation Comments Hct (test code = Hct) 43.1 42.0-54.0 N [facility] CenterTmzqxhmEEKPVDLUZL4882-40-74 11:10:00 Test Item Value Reference Range Interpretation Comments Hgb (test code = Hgb) 14.8 14.0-18.0 N [facility] CenterYewgtlsWFGSWECBPR3782-32-91 11:10:00 Test Item Value Reference Range Interpretation Comments WBC (test code = WBC) 7.1 3.7-10.4 N [facility] CenterYguiyjhHVSVCBTGHM8014-82-84 11:10:00 Test Item Value Reference Range Interpretation Comments RBC (test code = RBC) 4.57 4.70-6.10 L [facility] CenterAwxadkcBUJMTDYYW9675-74-33 11:10:00 Test Item Value Reference Range Interpretation Comments eGFR (test code = eGFR) 71 [facility] CenterVwulunzQFXXHHDMG8595-06-07 11:10:00 Test Item Value Reference Range Interpretation Comments CO2 (test code = CO2) 29 24-32 N [facility] CenterGahkrwcOPVJAQSNH7977-15-75 11:10:00 Test Item Value Reference Range Interpretation Comments Glucose Lvl (test code = Glucose Lvl) 120 70-99 H [facility] CenterFhjjqclJEELGIVSV0068-07-67 11:10:00 Test Item Value Reference Range Interpretation Comments Chloride Lvl (test code = Chloride Lvl) 103 95-109 N [facility] CenterSoyviykSNRATNTVV8368-41-21 11:10:00 Test Item Value Reference Range Interpretation Comments Potassium Lvl (test code = Potassium 3.9 3.5-5.1 N Lvl) [facility] CenterGihaleqQOAVQUXXI5088-88-96 11:10:00 Test Item Value Reference Range Interpretation Comments Sodium Lvl (test code = Sodium Lvl) 139 135-145 N [facility] CenterXbkxkrlZRFPOZCUK8558-42-71 11:10:00 Test Item Value Reference Range Interpretation Comments Creatinine Lvl (test code = Creatinine 1.2 0.5-1.4 N Lvl) [facility] CenterAtuiierJRUIKYPBE4659-35-58 11:10:00 Test Item Value Reference Range Interpretation Comments Calcium Lvl (test code = Calcium Lvl) 8.2 8.5-10.5 L [facility] CenterGkkxgioRWISCPGMG3114-48-73 11:10:00 Test Item Value Reference Range Interpretation Comments BUN (test code = BUN) 12 7-22 N [facility] CenterFqjgoxdFFOEHONXG3367-96-30 11:10:00 Test Item Value Reference Range Interpretation Comments AGAP (test code = AGAP) 10.9 10.0-20.0 N [facility] CenterKwymkblPWHSVWBIDA6251-36-68 11:10:00 Test Item Value Reference Range Interpretation Comments Segs (test code = Segs) 61.0 45.0-75.0 N [facility] CenterBkntawnMRMZTFMCNH1958-87-25 11:10:00 Test Item Value Reference Range Interpretation Comments Basophils (test code = 1.0 See_Comment N [Aut omated message] The Basophils) system which ge nerated this result tra nsmitted reference range : <=1.0. The reference r caitlin was not used to int erpret this result as normal/abnormal . [facility] CenterZomituhTSLUXRSBBR4768-36-51 11:10:00 Test Item Value Reference Range Interpretation Comments Eosinophils (test code = 1.0 See_Comment N [A utomated message] The Eosinophils) system which ge nerated this result tra nsmitted reference range : <=4.0. The reference r caitlin was not used to int erpret this result as normal/abnormal . [facility] CenterZooqcpdAZOSPWKSEK3832-35-71 11:10:00 Test Item Value Reference Range Interpretation Comments Large Plt (test code = Slight *ABN*(01/15/2012 A Large Plt) 05:10:00) [facility] CenterYfdadqvNVRQDFWUSR1560-10-01 11:10:00 Test Item Value Reference Range Interpretation Comments Lymphocytes (test code = Lymphocytes) 13.0 20.0-40.0 L [facility] CenterUdarzraOWNDAEPCYA6169-29-69 11:10:00 Test Item Value Reference Range Interpretation Comments Monocytes (test code = Monocytes) 12.0 2.0-12.0 N [facility] CenterHuzejevRAZJJVNGQW8232-06-87 11:10:00 Test Item Value Reference Range Interpretation Comments Polychrom (test code = Slight (01/15/2012 N Polychrom) 05:10:00) [facility] CenterEuprzvvAYQPJGDBBI9892-96-22 11:10:00 Test Item Value Reference Range Interpretation Comments Tot Cell Ct (test code = Tot Cell Ct) 100 1 [facility] CenterKalivkfSBKPREHREY6491-81-18 11:10:00 Test Item Value Reference Range Interpretation Comments Atypical Lymphs (test code = Atypical 0.0 N Lymphs) [facility] CenterVwryjrdUTYQTHGNRZ1432-97-37 11:10:00 Test Item Value Reference Range Interpretation Comments Basophils # (test code 0.1 See_Comment N [Aut omated message] The = Basophils #) system which generated this result tra nsmitted reference range : <=0.2. The reference r caitlin was not used to int erpret this result as normal/abnormal . [facility] CenterChxlxolSKDIPZAGOA0388-08-16 11:10:00 Test Item Value Reference Range Interpretation Comments Bands (test code = 12.0 See_Comment H [Automat ed message] The Bands) system which ge nerated this result transmit pradeep reference range : <=11.0. The reference r caitlin was not used to interpr et this result as maximus l/abnormal. [facility] CenterIfypirhTDIRSGFWLI1379-46-65 11:10:00 Test Item Value Reference Range Interpretation Comments Lymphocytes # (test code = Lymphocytes 0.9 1.0-5.5 L #) [facility] CenterVfncrydXEYQGSFRON5700-77-55 11:10:00 Test Item Value Reference Range Interpretation Comments Eosinophils # (test code 0.1 See_Comment N [A utomated message] The = Eosinophils #) system ic h generated this result tra nsmitted reference range : <=0.5. The reference r caitlin was not used to int erpret this result as normal/abnormal . [facility] CenterPwhtywcFMNPILMOYD1986-00-94 11:10:00 Test Item Value Reference Range Interpretation Comments Segs-Bands # (test code = Segs-Bands #) 5.2 1.5-8.1 N [facility] CenterTtzpxudJXWKKOEYSI1788-51-14 11:10:00 Test Item Value Reference Range Interpretation Comments Monocytes # (test code 0.9 See_Comment H [Aut omated message] The = Monocytes #) system which generated this result tra nsmitted reference range : <=0.8. The reference r caitlin was not used to int erpret this result as normal/abnormal . [facility] CenterNrhrebnEXSEYMKGMD9389-17-78 11:10:00 Test Item Value Reference Range Interpretation Comments RDW (test code = RDW) 13.8 11.5-14.5 N [facility] CenterQjvzilwCGTYWAYURB3752-68-93 11:10:00 Test Item Value Reference Range Interpretation Comments MPV (test code = MPV) 8.6 7.4-10.4 N [facility] CenterLjhkrvmCEDZQARNRH8189-38-17 11:10:00 Test Item Value Reference Range Interpretation Comments Platelet (test code = Platelet) 306 133-450 N [facility] CenterSqkmkgvXRNWLKEEEU3399-82-02 11:10:00 Test Item Value Reference Range Interpretation Comments MCV (test code = MCV) 94.3 80.0-94.0 H [facility] CenterFjsejjdGBSGXMKCYC0579-99-92 11:10:00 Test Item Value Reference Range Interpretation Comments MCH (test code = MCH) 32.5 pg 27.0-31.0 H [facility] CenterMontxraTFRMCEQQDB5615-41-52 11:10:00 Test Item Value Reference Range Interpretation Comments MCHC (test code = MCHC) 34.5 32.0-36.0 N [facility] CenterZzibwpiFGVCLKPYSC4600-04-27 11:10:00 Test Item Value Reference Range Interpretation Comments Hct (test code = Hct) 43.1 42.0-54.0 N [facility] CenterUdqrbhfXSGCGKUFTW6382-07-70 11:10:00 Test Item Value Reference Range Interpretation Comments Hgb (test code = Hgb) 14.8 14.0-18.0 N [facility] CenterYsyokgxDDCPFFVPOV8498-90-75 11:10:00 Test Item Value Reference Range Interpretation Comments WBC (test code = WBC) 7.1 3.7-10.4 N [facility] CenterSmuhrjhNGZIQBJTOV2588-51-69 11:10:00 Test Item Value Reference Range Interpretation Comments RBC (test code = RBC) 4.57 4.70-6.10 L [facility] CenterQtwshojMBWUXFALX4012-45-85 11:10:00 Test Item Value Reference Range Interpretation Comments eGFR (test code = eGFR) 71 [facility] CenterIsebhasHQCDJBPLJ3882-44-20 11:10:00 Test Item Value Reference Range Interpretation Comments CO2 (test code = CO2) 29 24-32 N [facility] CenterCcmfybeAMAGKFSCP0696-24-55 11:10:00 Test Item Value Reference Range Interpretation Comments Glucose Lvl (test code = Glucose Lvl) 120 70-99 [facility] CenterKeoryndRVXTVYYUC7496-66-05 11:10:00 Test Item Value Reference Range Interpretation Comments Chloride Lvl (test code = Chloride Lvl) 103 95-109 N [facility] CenterOlqysauXBAWPGCPJ8667-59-77 11:10:00 Test Item Value Reference Range Interpretation Comments Potassium Lvl (test code = Potassium 3.9 3.5-5.1 N Lvl) [facility] CenterSbjwhepUXGFCRYBQ5088-63-60 11:10:00 Test Item Value Reference Range Interpretation Comments Sodium Lvl (test code = Sodium Lvl) 139 135-145 N [facility] CenterTovynhyFLXLZSUUB9853-07-36 11:10:00 Test Item Value Reference Range Interpretation Comments Creatinine Lvl (test code = Creatinine 1.2 0.5-1.4 N Lvl) [facility] CenterRlfzpkhKLIAEMGQX9183-98-31 11:10:00 Test Item Value Reference Range Interpretation Comments Calcium Lvl (test code = Calcium Lvl) 8.2 8.5-10.5 L [facility] CenterLirseqiLRXTVRHYX9003-83-20 11:10:00 Test Item Value Reference Range Interpretation Comments BUN (test code = BUN) 12 7-22 N [facility] CenterPrauewwSCCDNUZCK4740-68-79 11:10:00 Test Item Value Reference Range Interpretation Comments AGAP (test code = AGAP) 10.9 10.0-20.0 N [facility] CenterXaboaztLOUUVAAMDF2157-72-01 11:10:00 Test Item Value Reference Range Interpretation Comments Segs (test code = Segs) 61.0 45.0-75.0 N [facility] CenterUgnupzyBNLSZHURUZ8976-86-01 11:10:00 Test Item Value Reference Range Interpretation Comments Basophils (test code = Basophils) 1.0 <=1.0 N [facility] CenterVoafojlTRJTJLFNSR7688-76-48 11:10:00 Test Item Value Reference Range Interpretation Comments Eosinophils (test code = Eosinophils) 1.0 <=4.0 N [facility] CenterNqttxfeEDHRUZOOYA9529-41-90 11:10:00 Test Item Value Reference Range Interpretation Comments Large Plt (test code = Slight *ABN*(01/15/2012 A Large Plt) 05:10:00) [facility] CenterCvuzqvqMCBZNQMCII7409-61-47 11:10:00 Test Item Value Reference Range Interpretation Comments Lymphocytes (test code = Lymphocytes) 13.0 20.0-40.0 L [facility] CenterKvwudtvUVSWDMZOLW0577-41-47 11:10:00 Test Item Value Reference Range Interpretation Comments Monocytes (test code = Monocytes) 12.0 2.0-12.0 N [facility] CenterQmtsiiiGLHLBSGYPA7806-39-31 11:10:00 Test Item Value Reference Range Interpretation Comments Polychrom (test code = Slight (01/15/2012 N Polychrom) 05:10:00) [facility] CenterXkqtwzgPTSNGXZYKB5692-11-00 11:10:00 Test Item Value Reference Range Interpretation Comments Tot Cell Ct (test code = Tot Cell Ct) 100 1 [facility] CenterCnqwxsnUQVTSUGEUT7987-44-47 11:10:00 Test Item Value Reference Range Interpretation Comments Atypical Lymphs (test code = Atypical 0.0 N Lymphs) [facility] CenterBspeznjNGRJENECKX7075-18-14 11:10:00 Test Item Value Reference Range Interpretation Comments Basophils # (test code = Basophils #) 0.1 <=0.2 N [facility] CenterBubdzipOCNOUQHCUC6475-97-27 11:10:00 Test Item Value Reference Range Interpretation Comments Bands (test code = Bands) 12.0 <=11.0 H [facility] CenterZyllmfsRWINORXFVC8366-27-22 11:10:00 Test Item Value Reference Range Interpretation Comments Lymphocytes # (test code = Lymphocytes 0.9 1.0-5.5 L #) [facility] CenterHswqnhuUGCVDZWOKZ5701-04-23 11:10:00 Test Item Value Reference Range Interpretation Comments Eosinophils # (test code = Eosinophils 0.1 <=0.5 N #) [facility] CenterAyeqlhwFDOJOLITJZ5578-46-41 11:10:00 Test Item Value Reference Range Interpretation Comments Segs-Bands # (test code = Segs-Bands #) 5.2 1.5-8.1 N [facility] CenterJjmcwiuOONIJUQGUA5685-29-44 11:10:00 Test Item Value Reference Range Interpretation Comments Monocytes # (test code = Monocytes #) 0.9 <=0.8 H [facility] CenterWnzvxmuBJMMCLJJOP1572-84-48 11:10:00 Test Item Value Reference Range Interpretation Comments RDW (test code = RDW) 13.8 11.5-14.5 N [facility] CenterPknnehoVFLFTYKDCI1138-35-08 11:10:00 Test Item Value Reference Range Interpretation Comments MPV (test code = MPV) 8.6 7.4-10.4 N [facility] CenterJnvcisyKLYEYUARGW7854-17-65 11:10:00 Test Item Value Reference Range Interpretation Comments Platelet (test code = Platelet) 306 133-450 N [facility] CenterJjtuslvZNOWTFWZLT0787-64-19 11:10:00 Test Item Value Reference Range Interpretation Comments MCV (test code = MCV) 94.3 80.0-94.0 H [facility] CenterOzgbnolZAKKSEPFHI2190-38-03 11:10:00 Test Item Value Reference Range Interpretation Comments MCH (test code = MCH) 32.5 pg 27.0-31.0 H [facility] CenterLydbibgOIVQEVZLYL6399-37-77 11:10:00 Test Item Value Reference Range Interpretation Comments MCHC (test code = MCHC) 34.5 32.0-36.0 N [facility] CenterVoqvgqlNPSAQZYVQF3723-23-36 11:10:00 Test Item Value Reference Range Interpretation Comments Hct (test code = Hct) 43.1 42.0-54.0 N [facility] CenterZqyunprSJNYPDJITQ1421-01-56 11:10:00 Test Item Value Reference Range Interpretation Comments Hgb (test code = Hgb) 14.8 14.0-18.0 N [facility] CenterEwvauxeKPNPZWNICY5170-29-51 11:10:00 Test Item Value Reference Range Interpretation Comments WBC (test code = WBC) 7.1 3.7-10.4 N [facility] CenterTzwxboiDJEATLFLGR8889-79-29 11:10:00 Test Item Value Reference Range Interpretation Comments RBC (test code = RBC) 4.57 4.70-6.10 L [facility]wayIcyccxiWHOTGKNKBE0751-76-30 11:00:00 Test Item Value Reference Range Interpretation Comments UA WBC (test code = UA 0-2 /HPF (01/15/2012 N WBC) 05:00:00) [facility] ParkwayWtderrzEPPGICHTAN5857-17-08 11:00:00 Test Item Value Reference Range Interpretation Comments UA Sq Epi (test code = Rare /LPF (01/15/2012 N UA Sq Epi) 05:00:00) [facility] ParkwayBbhhvuyAVIRGWMGOC2627-61-85 11:00:00 Test Item Value Reference Range Interpretation Comments UA Bacteria (test code = Few /HPF (01/15/2012 N UA Bacteria) 05:00:00) [facility] ParkwayTurvijkJOTQEPQRTI7305-57-37 11:00:00 Test Item Value Reference Range Interpretation Comments UA RBC (test 3-5 /HPF See_Comment A [Automated mes surya] code = UA RBC) *ABN*(01/15/2012 The syste m which 05:00:00) generated this result transmitted ref erence range: <=2. The reference range was not used to int erpret this result as normal/abnormal . [facility] ParkwayBunxorxBUIWTHVFKG5543-57-82 11:00:00 Test Item Value Reference Range Interpretation Comments UA Mucus (test code = Few /LPF (01/15/2012 N UA Mucus) 05:00:00) [facility] ParkwayKpuagsyZRVCZSSHVO3023-00-26 11:00:00 Test Item Value Reference Range Interpretation Comments UA pH (test code = UA pH) 6.0 1 5.0-8.0 N [facility] ParkwayKiiuqxpXQDMTZYONJ1750-78-22 11:00:00 Test Item Value Reference Range Interpretation Comments UA Spec Grav (test code = UA Spec 1.025 1 N Grav) [facility] ParkwayLobmulcLNUPBKIAEL5768-82-95 11:00:00 Test Item Value Reference Range Interpretation Comments UA Turbidity (test code = Clear (01/15/2012 N UA Turbidity) 05:00:00) [facility] ParkwayEugklwfROSHVAUAFD6688-79-57 11:00:00 Test Item Value Reference Range Interpretation Comments UA Glucose (test code Negative (01/15/2012 N = UA Glucose) 05:00:00) [facility] ParkwayLuaegfzVEXVGCUWXI1081-24-37 11:00:00 Test Item Value Reference Range Interpretation Comments UA Protein (test code = 100 mg/dL A UA Protein) *ABN*(01/15/2012 05:00:00) [facility] ParkwayKeiqeodKAVKXTNDMR0426-16-05 11:00:00 Test Item Value Reference Range Interpretation Comments UA Ketones (test code Negative = UA Ketones) *NA*(01/15/2012 05:00:00) [facility] ParkwayCzsdsfuDDFYVESCTH3386-51-10 11:00:00 Test Item Value Reference Range Interpretation Comments UA Bili (test code = Negative 1(01/15/2012 N UA Bili) 05:00:00) [facility]ZuweafaCHYGYTWENH7040-76-34 11:00:00 Test Item Value Reference Range Interpretation Comments UA Blood (test code = Moderate A UA Blood) *ABN*(01/15/2012 05:00:00) [facility]waySftwvceZNAUUTXUMM5790-42-64 11:00:00 Test Item Value Reference Range Interpretation Comments UA Urobilinogen (test code = UA 0.2 0.1-1.0 N Urobilinogen) [facility] ParkwayXqjvsftAIMHSHCVOC4168-32-25 11:00:00 Test Item Value Reference Range Interpretation Comments UA Color (test code = Yellow *NA*(01/15/2012 UA Color) 05:00:00) [facility] ParkwayNunrmosKOTPECIBGG6381-01-36 11:00:00 Test Item Value Reference Range Interpretation Comments UA Nitrite (test code Negative (01/15/2012 N = UA Nitrite) 05:00:00) [facility] ParkwayHmvlznjUOGDZFKCOL5777-18-56 11:00:00 Test Item Value Reference Range Interpretation Comments UA Leuk Est (test Negative (01/15/2012 N code = UA Leuk Est) 05:00:00) [facility] HospitalJxzhlimMBNKHOFCRC7553-02-34 11:00:00 Test Item Value Reference Range Interpretation Comments UA WBC (test code = UA 0-2 /HPF (01/15/2012 N WBC) 05:00:00) [facility] ParkwayXfyswfnWCSCQZWIAY9537-33-74 11:00:00 Test Item Value Reference Range Interpretation Comments UA Sq Epi (test code = Rare /LPF (01/15/2012 N UA Sq Epi) 05:00:00) [facility] HospitalZpkzmalFIMCTFBHSM3114-25-61 11:00:00 Test Item Value Reference Range Interpretation Comments UA Bacteria (test code = Few /HPF (01/15/2012 N UA Bacteria) 05:00:00) [facility]ownZvxbyldWSJSEBXVAM8087-45-01 11:00:00 Test Item Value Reference Range Interpretation Comments UA RBC (test 3-5 /HPF See_Comment A [Automated mes surya] code = UA RBC) *ABN*(01/15/2012 The syste m which 05:00:00) generated this result transmitted ref erence range: <=2. The reference range was not used to int erpret this result as normal/abnormal . [facility] ParkwayWbxihiwORLJVKMOPS5416-38-48 11:00:00 Test Item Value Reference Range Interpretation Comments UA Mucus (test code = Few /LPF (01/15/2012 N UA Mucus) 05:00:00) [facility]ptownOcuxucyNOJCKCYWCY7038-31-78 11:00:00 Test Item Value Reference Range Interpretation Comments UA pH (test code = UA pH) 6.0 1 5.0-8.0 N [facility] UptownWuhppvuOYBBMANKEJ7854-01-51 11:00:00 Test Item Value Reference Range Interpretation Comments UA Spec Grav (test code = UA Spec 1.025 1 N Grav) [facility]ptownGzbztiwWZDGEBCPBX2856-02-33 11:00:00 Test Item Value Reference Range Interpretation Comments UA Turbidity (test code = Clear (01/15/2012 N UA Turbidity) 05:00:00) [facility] ParkwayFggjxipKZCNNWJUIS7465-95-07 11:00:00 Test Item Value Reference Range Interpretation Comments UA Glucose (test code Negative (01/15/2012 N = UA Glucose) 05:00:00) [facility] UptownVhgpugdMNCVHFJDQD5684-48-59 11:00:00 Test Item Value Reference Range Interpretation Comments UA Protein (test code = 100 mg/dL A UA Protein) *ABN*(01/15/2012 05:00:00) [facility] ParkwayXxnfaeoWVVXJQPOWY1199-97-22 11:00:00 Test Item Value Reference Range Interpretation Comments UA Ketones (test code Negative = UA Ketones) *NA*(01/15/2012 05:00:00) [facility]ptownXgxonqgNIXJVZRSNS7506-33-74 11:00:00 Test Item Value Reference Range Interpretation Comments UA Bili (test code = Negative 1(01/15/2012 N UA Bili) 05:00:00) [facility]ptownGapvwkmDCXVSOVQJU4985-18-21 11:00:00 Test Item Value Reference Range Interpretation Comments UA Blood (test code = Moderate A UA Blood) *ABN*(01/15/2012 05:00:00) [facility]ptownBhluhpxAAZJYJMFZL8543-53-54 11:00:00 Test Item Value Reference Range Interpretation Comments UA Urobilinogen (test code = UA 0.2 0.1-1.0 N Urobilinogen) [facility] HospitalPpypqvgGUSYXQJBZQ3327-97-58 11:00:00 Test Item Value Reference Range Interpretation Comments UA Color (test code = Yellow *NA*(01/15/2012 UA Color) 05:00:00) [facility] UptownFgzinhbHITQLRJZAO6420-50-48 11:00:00 Test Item Value Reference Range Interpretation Comments UA Nitrite (test code Negative (01/15/2012 N = UA Nitrite) 05:00:00) [facility] UptownOtdehmqKBIRGBDNIY8245-80-65 11:00:00 Test Item Value Reference Range Interpretation Comments UA Leuk Est (test Negative (01/15/2012 N code = UA Leuk Est) 05:00:00) [facility]ptownXtxnlceYZJNQBLEEA0615-05-77 11:00:00 Test Item Value Reference Range Interpretation Comments UA WBC (test code = UA 0-2 /HPF (01/15/2012 N WBC) 05:00:00) [facility] UptownIvigxzmJAVZSAFLNC5456-82-97 11:00:00 Test Item Value Reference Range Interpretation Comments UA Sq Epi (test code = Rare /LPF (01/15/2012 N UA Sq Epi) 05:00:00) [facility] HospitalLufxletNKIVWLOKZN4906-77-20 11:00:00 Test Item Value Reference Range Interpretation Comments UA Bacteria (test code = Few /HPF (01/15/2012 N UA Bacteria) 05:00:00) [facility]ptownMcynktvBPOHUYIPWH1948-31-87 11:00:00 Test Item Value Reference Range Interpretation Comments UA RBC (test 3-5 /HPF See_Comment A [Automated mes surya] code = UA RBC) *ABN*(01/15/2012 The syste m which 05:00:00) generated this result transmitted ref erence range: <=2. The reference range was not used to int erpret this result as normal/abnormal . [facility] HospitalFskpaczYEEUKDXPCR9984-29-36 11:00:00 Test Item Value Reference Range Interpretation Comments UA Mucus (test code = Few /LPF (01/15/2012 N UA Mucus) 05:00:00) [facility]ptownWzceurmMOEOHTCFRN6727-53-00 11:00:00 Test Item Value Reference Range Interpretation Comments UA pH (test code = UA pH) 6.0 1 5.0-8.0 N [facility] UptownYvteaoaSINAZLFZNN7718-93-48 11:00:00 Test Item Value Reference Range Interpretation Comments UA Spec Grav (test code = UA Spec 1.025 1 N Grav) [facility] ParkwayZxuqxbjNLFMFQOBXF4714-19-99 11:00:00 Test Item Value Reference Range Interpretation Comments UA Turbidity (test code = Clear (01/15/2012 N UA Turbidity) 05:00:00) [facility] ParkwayCtctutgYYPVGWACFJ7297-62-31 11:00:00 Test Item Value Reference Range Interpretation Comments UA Glucose (test code Negative (01/15/2012 N = UA Glucose) 05:00:00) [facility] ParkwayScxncmuSVWAMDUBEJ9078-18-30 11:00:00 Test Item Value Reference Range Interpretation Comments UA Protein (test code = 100 mg/dL A UA Protein) *ABN*(01/15/2012 05:00:00) [facility] ParkwayNaobsfdKXMFBTHNCC0468-76-43 11:00:00 Test Item Value Reference Range Interpretation Comments UA Ketones (test code Negative = UA Ketones) *NA*(01/15/2012 05:00:00) [facility] ParkwayRognoaeUQLNMXWXXW1427-75-07 11:00:00 Test Item Value Reference Range Interpretation Comments UA Bili (test code = Negative 1(01/15/2012 N UA Bili) 05:00:00) [facility] ParkwayRlzfjtjSJJEDWOIBS2939-74-46 11:00:00 Test Item Value Reference Range Interpretation Comments UA Blood (test code = Moderate A UA Blood) *ABN*(01/15/2012 05:00:00) [facility] ParkwayGepleayRIWWNVFBGQ4189-87-79 11:00:00 Test Item Value Reference Range Interpretation Comments UA Urobilinogen (test code = UA 0.2 0.1-1.0 N Urobilinogen) [facility] ParkwayWjjesuxELAKULLUMD0974-00-38 11:00:00 Test Item Value Reference Range Interpretation Comments UA Color (test code = Yellow *NA*(01/15/2012 UA Color) 05:00:00) [facility] ParkwayVliknjiTPKNIURBPV4376-37-45 11:00:00 Test Item Value Reference Range Interpretation Comments UA Nitrite (test code Negative (01/15/2012 N = UA Nitrite) 05:00:00) [facility] ParkwayJlzxdcwNMHQPXINET6807-96-66 11:00:00 Test Item Value Reference Range Interpretation Comments UA Leuk Est (test Negative (01/15/2012 N code = UA Leuk Est) 05:00:00) [facility]ptownKdvmvltSWESIRMSJU9220-05-62 11:00:00 Test Item Value Reference Range Interpretation Comments UA WBC (test code = UA 0-2 /HPF (01/15/2012 N WBC) 05:00:00) [facility] UptownMnofzgwJFISCMBJYP9714-46-49 11:00:00 Test Item Value Reference Range Interpretation Comments UA Sq Epi (test code = Rare /LPF (01/15/2012 N UA Sq Epi) 05:00:00) [facility] HospitalSdckmnfVLHPPAWLMG2187-22-88 11:00:00 Test Item Value Reference Range Interpretation Comments UA Bacteria (test code = Few /HPF (01/15/2012 N UA Bacteria) 05:00:00) [facility] UptownTevuxzrYCLVGGTTFP4821-09-02 11:00:00 Test Item Value Reference Range Interpretation Comments UA RBC (test 3-5 /HPF See_Comment A [Automated mes surya] code = UA RBC) *ABN*(01/15/2012 The syste m which 05:00:00) generated this result transmitted ref erence range: <=2. The reference range was not used to int erpret this result as normal/abnormal . [facility] UptownWwotysaORBLATBKFX8242-17-16 11:00:00 Test Item Value Reference Range Interpretation Comments UA Mucus (test code = Few /LPF (01/15/2012 N UA Mucus) 05:00:00) [facility]ptownOdvpxtgHLPABVJIRP3807-03-60 11:00:00 Test Item Value Reference Range Interpretation Comments UA pH (test code = UA pH) 6.0 1 5.0-8.0 N [facility] UptownSijksvrUWCCODJDBW5982-78-83 11:00:00 Test Item Value Reference Range Interpretation Comments UA Spec Grav (test code = UA Spec 1.025 1 N Grav) [facility] UptownBbojcieUGNBXBTNEJ7148-07-10 11:00:00 Test Item Value Reference Range Interpretation Comments UA Turbidity (test code = Clear (01/15/2012 N UA Turbidity) 05:00:00) [facility] UptownCaazsmuOQWABUSUTU0808-87-19 11:00:00 Test Item Value Reference Range Interpretation Comments UA Glucose (test code Negative (01/15/2012 N = UA Glucose) 05:00:00) [facility] UptownNymkghfECSUYCMCUU6401-60-02 11:00:00 Test Item Value Reference Range Interpretation Comments UA Protein (test code = 100 mg/dL A UA Protein) *ABN*(01/15/2012 05:00:00) [facility] ParkwayMtzijpgBZJHKWTXSU6962-91-47 11:00:00 Test Item Value Reference Range Interpretation Comments UA Ketones (test code Negative = UA Ketones) *NA*(01/15/2012 05:00:00) [facility] ParkwayGgwycbvAMDAGMELTF6896-82-81 11:00:00 Test Item Value Reference Range Interpretation Comments UA Bili (test code = Negative 1(01/15/2012 N UA Bili) 05:00:00) [facility] ParkwayLnomzkaJEDZAVOKJK7982-87-75 11:00:00 Test Item Value Reference Range Interpretation Comments UA Blood (test code = Moderate A UA Blood) *ABN*(01/15/2012 05:00:00) [facility] ParkwayMafldpoJYRMFPCWDH5250-79-90 11:00:00 Test Item Value Reference Range Interpretation Comments UA Urobilinogen (test code = UA 0.2 0.1-1.0 N Urobilinogen) [facility] ParkwayWoqheyhBCZQNRPPNT3545-76-63 11:00:00 Test Item Value Reference Range Interpretation Comments UA Color (test code = Yellow *NA*(01/15/2012 UA Color) 05:00:00) [facility] ParkwayAqaguhvQVNJWAHKTP3223-25-94 11:00:00 Test Item Value Reference Range Interpretation Comments UA Nitrite (test code Negative (01/15/2012 N = UA Nitrite) 05:00:00) [facility] ParkwayWywkgdyMUJTXMZBGR3471-10-63 11:00:00 Test Item Value Reference Range Interpretation Comments UA Leuk Est (test Negative (01/15/2012 N code = UA Leuk Est) 05:00:00) [facility] ParkwayTdqbcbmMGATORDKBY1390-12-37 11:00:00 Test Item Value Reference Range Interpretation Comments UA WBC (test code = UA 0-2 /HPF (01/15/2012 N WBC) 05:00:00) [facility]ptownCzugwzxTGOSTDIDSI3216-11-85 11:00:00 Test Item Value Reference Range Interpretation Comments UA Sq Epi (test code = Rare /LPF (01/15/2012 N UA Sq Epi) 05:00:00) [facility]ptownXgnsbriLOUUHSLHUO7000-16-98 11:00:00 Test Item Value Reference Range Interpretation Comments UA Bacteria (test code = Few /HPF (01/15/2012 N UA Bacteria) 05:00:00) [facility] ParkwayIwehxxzZZUQBTEAAH1350-92-71 11:00:00 Test Item Value Reference Range Interpretation Comments UA RBC (test 3-5 /HPF See_Comment A [Automated mes surya] code = UA RBC) *ABN*(01/15/2012 The syste m which 05:00:00) generated this result transmitted ref erence range: <=2. The reference range was not used to int erpret this result as normal/abnormal . [facility] ParkwayScjydbyEGEYGMBFRT3809-22-44 11:00:00 Test Item Value Reference Range Interpretation Comments UA Mucus (test code = Few /LPF (01/15/2012 N UA Mucus) 05:00:00) [facility] ParkwayHrxvqkuGKANXZWSQJ3868-57-94 11:00:00 Test Item Value Reference Range Interpretation Comments UA pH (test code = UA pH) 6.0 1 5.0-8.0 N [facility] ParkwayLitcfyhQMITUDCXZN5615-90-14 11:00:00 Test Item Value Reference Range Interpretation Comments UA Spec Grav (test code = UA Spec 1.025 1 N Grav) [facility] ParkwayDfwflldRMBTLKOPUO5339-42-12 11:00:00 Test Item Value Reference Range Interpretation Comments UA Turbidity (test code = Clear (01/15/2012 N UA Turbidity) 05:00:00) [facility] ParkwayTrlrrriOMKKIBOVUY7122-70-61 11:00:00 Test Item Value Reference Range Interpretation Comments UA Glucose (test code Negative (01/15/2012 N = UA Glucose) 05:00:00) [facility] ParkwayUvwezhuKZGOGFFPKY2713-83-79 11:00:00 Test Item Value Reference Range Interpretation Comments UA Protein (test code = 100 mg/dL A UA Protein) *ABN*(01/15/2012 05:00:00) [facility] ParkwayTxanmxwENBLYUIINM0629-93-58 11:00:00 Test Item Value Reference Range Interpretation Comments UA Ketones (test code Negative = UA Ketones) *NA*(01/15/2012 05:00:00) [facility]ptownPikmlsmVEVKOBOYRG0397-32-76 11:00:00 Test Item Value Reference Range Interpretation Comments UA Bili (test code = Negative 1(01/15/2012 N UA Bili) 05:00:00) [facility] HospitalZlfsoepUWSIBIWAYE8426-21-11 11:00:00 Test Item Value Reference Range Interpretation Comments UA Blood (test code = Moderate A UA Blood) *ABN*(01/15/2012 05:00:00) [facility] ParkwayFxxbefvYWAUJZOEDB9838-80-39 11:00:00 Test Item Value Reference Range Interpretation Comments UA Urobilinogen (test code = UA 0.2 0.1-1.0 N Urobilinogen) [facility] ParkwayJkkdlcsEMKVVJAAKZ2098-88-69 11:00:00 Test Item Value Reference Range Interpretation Comments UA Color (test code = Yellow *NA*(01/15/2012 UA Color) 05:00:00) [facility] ParkwayEdjxmrxADBDIMEHMS5410-97-25 11:00:00 Test Item Value Reference Range Interpretation Comments UA Nitrite (test code Negative (01/15/2012 N = UA Nitrite) 05:00:00) [facility] ParkwayZbusgysKGVIRZQLCO2622-71-42 11:00:00 Test Item Value Reference Range Interpretation Comments UA Leuk Est (test Negative (01/15/2012 N code = UA Leuk Est) 05:00:00) [facility] ParkwayAjtiustOWAWDCZLGR0041-35-69 11:00:00 Test Item Value Reference Range Interpretation Comments UA WBC (test code = UA 0-2 /HPF (01/15/2012 N WBC) 05:00:00) [facility] ParkwayIdxyigzPLQQMHDSOB4224-04-77 11:00:00 Test Item Value Reference Range Interpretation Comments UA Sq Epi (test code = Rare /LPF (01/15/2012 N UA Sq Epi) 05:00:00) [facility] HospitalDmoaoesWEQBVQXQIS4248-73-50 11:00:00 Test Item Value Reference Range Interpretation Comments UA Bacteria (test code = Few /HPF (01/15/2012 N UA Bacteria) 05:00:00) [facility]ownEkxsxqgFJCPHDZXBQ5686-35-04 11:00:00 Test Item Value Reference Range Interpretation Comments UA RBC (test 3-5 /HPF See_Comment A [Automated mes surya] code = UA RBC) *ABN*(01/15/2012 The syste m which 05:00:00) generated this result transmitted ref erence range: <=2. The reference range was not used to int erpret this result as normal/abnormal . [facility]wayQnncptfJMZVSYRMEZ0609-25-16 11:00:00 Test Item Value Reference Range Interpretation Comments UA Mucus (test code = Few /LPF (01/15/2012 N UA Mucus) 05:00:00) [facility]waySzpfuvnHTMJNCQOEN0170-62-04 11:00:00 Test Item Value Reference Range Interpretation Comments UA pH (test code = UA pH) 6.0 1 5.0-8.0 N [facility] ParkwayYaxcuqbUAOWPDFGHP1871-28-58 11:00:00 Test Item Value Reference Range Interpretation Comments UA Spec Grav (test code = UA Spec 1.025 1 N Grav) [facility]wayVtdffpkBWLBMVBYDB1914-30-56 11:00:00 Test Item Value Reference Range Interpretation Comments UA Turbidity (test code = Clear (01/15/2012 N UA Turbidity) 05:00:00) [facility] ParkwayMavqjbqDFXXKDQDRR9606-65-89 11:00:00 Test Item Value Reference Range Interpretation Comments UA Glucose (test code Negative (01/15/2012 N = UA Glucose) 05:00:00) [facility]ownAfykwbaVEBOICYATY0528-57-09 11:00:00 Test Item Value Reference Range Interpretation Comments UA Protein (test code = 100 mg/dL A UA Protein) *ABN*(01/15/2012 05:00:00) [facility] ParkwayCrvrabwLCOKORLXRL4686-84-25 11:00:00 Test Item Value Reference Range Interpretation Comments UA Ketones (test code Negative = UA Ketones) *NA*(01/15/2012 05:00:00) [facility]ownTxqtmdmJIBSQSNKEN1853-09-73 11:00:00 Test Item Value Reference Range Interpretation Comments UA Bili (test code = Negative 1(01/15/2012 N UA Bili) 05:00:00) [facility]ownDalqtkhRBXZAUNUSV7169-40-71 11:00:00 Test Item Value Reference Range Interpretation Comments UA Blood (test code = Moderate A UA Blood) *ABN*(01/15/2012 05:00:00) [facility]ownGaysyacMRGEBSBLRJ3146-96-59 11:00:00 Test Item Value Reference Range Interpretation Comments UA Urobilinogen (test code = UA 0.2 0.1-1.0 N Urobilinogen) [facility]TliykhxZCTOBXPNYZ0803-84-60 11:00:00 Test Item Value Reference Range Interpretation Comments UA Color (test code = Yellow *NA*(01/15/2012 UA Color) 05:00:00) [facility]ownPnaxthcTDQEPAYBGN6735-31-16 11:00:00 Test Item Value Reference Range Interpretation Comments UA Nitrite (test code Negative (01/15/2012 N = UA Nitrite) 05:00:00) [facility]ownQpanigmLLBLXQPUXG4218-04-36 11:00:00 Test Item Value Reference Range Interpretation Comments UA Leuk Est (test Negative (01/15/2012 N code = UA Leuk Est) 05:00:00) [facility]ownFjopxtqJIBXRGWBCX8239-84-56 11:00:00 Test Item Value Reference Range Interpretation Comments UA WBC (test code = UA 0-2 /HPF (01/15/2012 N WBC) 05:00:00) [facility]ownGzuwskoWATNUYYEEV3477-76-84 11:00:00 Test Item Value Reference Range Interpretation Comments UA Sq Epi (test code = Rare /LPF (01/15/2012 N UA Sq Epi) 05:00:00) [facility] HospitalKeaahzvVUTKZINBLL3159-72-15 11:00:00 Test Item Value Reference Range Interpretation Comments UA Bacteria (test code = Few /HPF (01/15/2012 N UA Bacteria) 05:00:00) [facility]ownDfmbxrtPUNYRKXXFM8588-14-47 11:00:00 Test Item Value Reference Range Interpretation Comments UA RBC (test 3-5 /HPF See_Comment A [Automated mes surya] code = UA RBC) *ABN*(01/15/2012 The syste m which 05:00:00) generated this result transmitted ref erence range: <=2. The reference range was not used to int erpret this result as normal/abnormal . [facility]ownTshsewrOWNPMXRUQC1566-10-79 11:00:00 Test Item Value Reference Range Interpretation Comments UA Mucus (test code = Few /LPF (01/15/2012 N UA Mucus) 05:00:00) [facility]ownAhgjsoaKPUIYPJODS8075-40-09 11:00:00 Test Item Value Reference Range Interpretation Comments UA pH (test code = UA pH) 6.0 1 5.0-8.0 N [facility]ownOnarvqjRIEKWLEJND7531-02-05 11:00:00 Test Item Value Reference Range Interpretation Comments UA Spec Grav (test code = UA Spec 1.025 1 N Grav) [facility] ParkwayLebhgtkAGUDVQPROH1772-55-79 11:00:00 Test Item Value Reference Range Interpretation Comments UA Turbidity (test code = Clear (01/15/2012 N UA Turbidity) 05:00:00) [facility]wayGftlmlqPHRMBYVDOA5373-94-08 11:00:00 Test Item Value Reference Range Interpretation Comments UA Glucose (test code Negative (01/15/2012 N = UA Glucose) 05:00:00) [facility]waySwqqgufJATUBTQROE1008-55-18 11:00:00 Test Item Value Reference Range Interpretation Comments UA Protein (test code = 100 mg/dL A UA Protein) *ABN*(01/15/2012 05:00:00) [facility] ParkwayGfmcbnoHTWVOWDOBH5280-74-87 11:00:00 Test Item Value Reference Range Interpretation Comments UA Ketones (test code Negative = UA Ketones) *NA*(01/15/2012 05:00:00) [facility] ParkwayBukqrukKPEPSMFERK0416-43-47 11:00:00 Test Item Value Reference Range Interpretation Comments UA Bili (test code = Negative 1(01/15/2012 N UA Bili) 05:00:00) [facility] ParkwayDtnafbsDWULSTHAZK1684-28-92 11:00:00 Test Item Value Reference Range Interpretation Comments UA Blood (test code = Moderate A UA Blood) *ABN*(01/15/2012 05:00:00) [facility] ParkwayZtvwweqOTOQLETZDX3640-08-51 11:00:00 Test Item Value Reference Range Interpretation Comments UA Urobilinogen (test code = UA 0.2 0.1-1.0 N Urobilinogen) [facility] ParkwayLapmtunPNUQJXNTWW3991-80-88 11:00:00 Test Item Value Reference Range Interpretation Comments UA Color (test code = Yellow *NA*(01/15/2012 UA Color) 05:00:00) [facility]wayWbgbqkfYUOOTMJJRI7375-93-21 11:00:00 Test Item Value Reference Range Interpretation Comments UA Nitrite (test code Negative (01/15/2012 N = UA Nitrite) 05:00:00) [facility]ownAtbcrxbCZNJABOCKT4718-61-69 11:00:00 Test Item Value Reference Range Interpretation Comments UA Leuk Est (test Negative (01/15/2012 N code = UA Leuk Est) 05:00:00) [facility]ptownLknngbhKFHWTAWQFD8134-81-27 11:00:00 Test Item Value Reference Range Interpretation Comments UA WBC (test code = UA 0-2 /HPF (01/15/2012 N WBC) 05:00:00) [facility] ParkwayCfewmsrIFZPGJZERD9276-36-13 11:00:00 Test Item Value Reference Range Interpretation Comments UA Sq Epi (test code = Rare /LPF (01/15/2012 N UA Sq Epi) 05:00:00) [facility]ptownBbmdresRPKOCWYLYJ7349-04-55 11:00:00 Test Item Value Reference Range Interpretation Comments UA Bacteria (test code = Few /HPF (01/15/2012 N UA Bacteria) 05:00:00) [facility] ParkwayCudlkunLJXVMYAXLR9307-85-40 11:00:00 Test Item Value Reference Range Interpretation Comments UA RBC (test 3-5 /HPF See_Comment A [Automated mes surya] code = UA RBC) *ABN*(01/15/2012 The syste m which 05:00:00) generated this result transmitted ref erence range: <=2. The reference range was not used to int erpret this result as normal/abnormal . [facility] ParkwayOddscewTACVUADPJE0976-46-75 11:00:00 Test Item Value Reference Range Interpretation Comments UA Mucus (test code = Few /LPF (01/15/2012 N UA Mucus) 05:00:00) [facility] ParkwayOkaiqmtUMICPHGBUK4277-92-50 11:00:00 Test Item Value Reference Range Interpretation Comments UA pH (test code = UA pH) 6.0 1 5.0-8.0 N [facility]ptownIqphoikVBYGRYMAGZ0251-32-42 11:00:00 Test Item Value Reference Range Interpretation Comments UA Spec Grav (test code = UA Spec 1.025 1 N Grav) [facility]ptownNptlptrITWVNPAFOG2571-52-46 11:00:00 Test Item Value Reference Range Interpretation Comments UA Turbidity (test code = Clear (01/15/2012 N UA Turbidity) 05:00:00) [facility]ownNspyftwVFESLFXOEW0988-87-84 11:00:00 Test Item Value Reference Range Interpretation Comments UA Glucose (test code Negative (01/15/2012 N = UA Glucose) 05:00:00) [facility]ownMmbvpvtRFXDVGCNRL8316-37-31 11:00:00 Test Item Value Reference Range Interpretation Comments UA Protein (test code = 100 mg/dL A UA Protein) *ABN*(01/15/2012 05:00:00) [facility]wayQvhtmrrSMOKJYFNJY1080-41-17 11:00:00 Test Item Value Reference Range Interpretation Comments UA Ketones (test code Negative = UA Ketones) *NA*(01/15/2012 05:00:00) [facility] ParkwayPztzyfxUSTMOBMMCN0141-71-62 11:00:00 Test Item Value Reference Range Interpretation Comments UA Bili (test code = Negative 1(01/15/2012 N UA Bili) 05:00:00) [facility]wayEykyhmtYVOWVZSYYV5667-33-08 11:00:00 Test Item Value Reference Range Interpretation Comments UA Blood (test code = Moderate A UA Blood) *ABN*(01/15/2012 05:00:00) [facility] ParkwayGviimjyHVMHEGGHEH9545-18-34 11:00:00 Test Item Value Reference Range Interpretation Comments UA Urobilinogen (test code = UA 0.2 0.1-1.0 N Urobilinogen) [facility] ParkwayLsputmgDFOSBGVBFZ4363-75-53 11:00:00 Test Item Value Reference Range Interpretation Comments UA Color (test code = Yellow *NA*(01/15/2012 UA Color) 05:00:00) [facility] ParkwayQyxkhpkFYYHHACNYX4325-37-17 11:00:00 Test Item Value Reference Range Interpretation Comments UA Nitrite (test code Negative (01/15/2012 N = UA Nitrite) 05:00:00) [facility] ParkwayDzelbqpPXOHHNCLDG3620-64-79 11:00:00 Test Item Value Reference Range Interpretation Comments UA Leuk Est (test Negative (01/15/2012 N code = UA Leuk Est) 05:00:00) [facility] ParkwayEeftahnCZFYFICTMK7790-91-47 11:00:00 Test Item Value Reference Range Interpretation Comments UA WBC (test code = UA 0-2 /HPF (01/15/2012 N WBC) 05:00:00) [facility] ParkwaySzgrtdxXJZOZISRGA4180-41-94 11:00:00 Test Item Value Reference Range Interpretation Comments UA Sq Epi (test code = Rare /LPF (01/15/2012 N UA Sq Epi) 05:00:00) [facility]ownStszpkuNJDAOURTJM3742-67-02 11:00:00 Test Item Value Reference Range Interpretation Comments UA Bacteria (test code = Few /HPF (01/15/2012 N UA Bacteria) 05:00:00) [facility]ownAmormpmKJOURHXUKF5549-40-00 11:00:00 Test Item Value Reference Range Interpretation Comments UA RBC (test 3-5 /HPF See_Comment A [Automated mes surya] code = UA RBC) *ABN*(01/15/2012 The syste m which 05:00:00) generated this result transmitted ref erence range: <=2. The reference range was not used to int erpret this result as normal/abnormal . [facility] ParkwayVkblaudXXIKTUSSHJ0872-91-93 11:00:00 Test Item Value Reference Range Interpretation Comments UA Mucus (test code = Few /LPF (01/15/2012 N UA Mucus) 05:00:00) [facility]wayEyxsjluPWBKCBNAAJ2004-58-61 11:00:00 Test Item Value Reference Range Interpretation Comments UA pH (test code = UA pH) 6.0 1 5.0-8.0 N [facility] ParkwayYuwqqarAIFCVFDYFC7605-91-19 11:00:00 Test Item Value Reference Range Interpretation Comments UA Spec Grav (test code = UA Spec 1.025 1 N Grav) [facility] ParkwayAjajdxnHBKRIXEUCN1253-40-54 11:00:00 Test Item Value Reference Range Interpretation Comments UA Turbidity (test code = Clear (01/15/2012 N UA Turbidity) 05:00:00) [facility]ownTsvfkwdFFKBRBMNZO6357-61-68 11:00:00 Test Item Value Reference Range Interpretation Comments UA Glucose (test code Negative (01/15/2012 N = UA Glucose) 05:00:00) [facility]ownClvjhbdHLKMPUVNWH9744-63-62 11:00:00 Test Item Value Reference Range Interpretation Comments UA Protein (test code = 100 mg/dL A UA Protein) *ABN*(01/15/2012 05:00:00) [facility]ownOgrvughOIAVTQNEWC7474-48-41 11:00:00 Test Item Value Reference Range Interpretation Comments UA Ketones (test code Negative = UA Ketones) *NA*(01/15/2012 05:00:00) [facility]ownMdkrtocBMIZTRZPFY6289-10-12 11:00:00 Test Item Value Reference Range Interpretation Comments UA Bili (test code = Negative 1(01/15/2012 N UA Bili) 05:00:00) [facility]ownFxabxrjFABJLAELBJ5378-76-43 11:00:00 Test Item Value Reference Range Interpretation Comments UA Blood (test code = Moderate A UA Blood) *ABN*(01/15/2012 05:00:00) [facility] ParkwayFmzkzftURVQTHKFPZ6705-62-60 11:00:00 Test Item Value Reference Range Interpretation Comments UA Urobilinogen (test code = UA 0.2 0.1-1.0 N Urobilinogen) [facility]wayVqxrfpyGZKNSNSORL1381-81-74 11:00:00 Test Item Value Reference Range Interpretation Comments UA Color (test code = Yellow *NA*(01/15/2012 UA Color) 05:00:00) [facility]wayNhdpxywELFATKSAWQ5545-30-87 11:00:00 Test Item Value Reference Range Interpretation Comments UA Nitrite (test code Negative (01/15/2012 N = UA Nitrite) 05:00:00) [facility] HospitalDcfhbdzAVVYTSJLRJ7886-33-80 11:00:00 Test Item Value Reference Range Interpretation Comments UA Leuk Est (test Negative (01/15/2012 N code = UA Leuk Est) 05:00:00) [facility] ParkwayWdjxoscTKBWYHIMVD1033-78-48 11:00:00 Test Item Value Reference Range Interpretation Comments UA WBC (test code = UA 0-2 /HPF (01/15/2012 N WBC) 05:00:00) [facility] ParkwayMbbbfidIFETWMFNRS3207-29-96 11:00:00 Test Item Value Reference Range Interpretation Comments UA Sq Epi (test code = Rare /LPF (01/15/2012 N UA Sq Epi) 05:00:00) [facility] HospitalBnmpmkyUMGLZYEPAO5731-72-26 11:00:00 Test Item Value Reference Range Interpretation Comments UA Bacteria (test code = Few /HPF (01/15/2012 N UA Bacteria) 05:00:00) [facility]ownIbwiobnJIAQFJYPAB9203-64-90 11:00:00 Test Item Value Reference Range Interpretation Comments UA RBC (test 3-5 /HPF See_Comment A [Automated mes surya] code = UA RBC) *ABN*(01/15/2012 The syste m which 05:00:00) generated this result transmitted ref erence range: <=2. The reference range was not used to int erpret this result as normal/abnormal . [facility] HospitalErqzmdvWAFJLUZUVT3090-31-65 11:00:00 Test Item Value Reference Range Interpretation Comments UA Mucus (test code = Few /LPF (01/15/2012 N UA Mucus) 05:00:00) [facility] HospitalKpmeevwNZQDQEEWXY7630-21-01 11:00:00 Test Item Value Reference Range Interpretation Comments UA pH (test code = UA pH) 6.0 1 5.0-8.0 N [facility] HospitalUpvztfdRIVIFEKZSD0843-41-33 11:00:00 Test Item Value Reference Range Interpretation Comments UA WBC (test code = UA 0-2 /HPF (01/15/2012 N WBC) 05:00:00) [facility]ownKaivtdoSJGNVRXRHI7882-75-60 11:00:00 Test Item Value Reference Range Interpretation Comments UA Sq Epi (test code = Rare /LPF (01/15/2012 N UA Sq Epi) 05:00:00) [facility] HospitalGohdgeaMLURNAMQUU8210-18-37 11:00:00 Test Item Value Reference Range Interpretation Comments UA Bacteria (test code = Few /HPF (01/15/2012 N UA Bacteria) 05:00:00) [facility] HospitalMknxplhCVXBJFHDBY5048-17-57 11:00:00 Test Item Value Reference Range Interpretation Comments UA RBC (test 3-5 /HPF See_Comment A [Automated mes surya] code = UA RBC) *ABN*(01/15/2012 The syste m which 05:00:00) generated this result transmitted ref erence range: <=2. The reference range was not used to int erpret this result as normal/abnormal . [facility] HospitalVouopyeDQUOOTVCPU3403-05-19 11:00:00 Test Item Value Reference Range Interpretation Comments UA Mucus (test code = Few /LPF (01/15/2012 N UA Mucus) 05:00:00) [facility] HospitalGgqpkapLZSMFNNWJA2031-36-50 11:00:00 Test Item Value Reference Range Interpretation Comments UA pH (test code = UA pH) 6.0 1 5.0-8.0 N [facility] HospitalPwihzboNIIVREELZO3485-15-02 11:00:00 Test Item Value Reference Range Interpretation Comments UA Spec Grav (test code = UA Spec 1.025 1 N Grav) [facility]ownKyutgdmGSHSKFAFKX2674-05-94 11:00:00 Test Item Value Reference Range Interpretation Comments UA Spec Grav (test code = UA Spec 1.025 1 N Grav) [facility] ParkwayNavdiolMCOXGOWPUD1242-49-02 11:00:00 Test Item Value Reference Range Interpretation Comments UA Turbidity (test code = Clear (01/15/2012 N UA Turbidity) 05:00:00) [facility]ownArdftlzJBFYBMJZKZ9047-68-41 11:00:00 Test Item Value Reference Range Interpretation Comments UA Glucose (test code Negative (01/15/2012 N = UA Glucose) 05:00:00) [facility] ParkwayWrnanfvFAMNZBCKWW4484-64-73 11:00:00 Test Item Value Reference Range Interpretation Comments UA Protein (test code = 100 mg/dL A UA Protein) *ABN*(01/15/2012 05:00:00) [facility] ParkwayPtsattbGHFZEPOICR7960-75-17 11:00:00 Test Item Value Reference Range Interpretation Comments UA Ketones (test code Negative = UA Ketones) *NA*(01/15/2012 05:00:00) [facility] ParkwayCcliaapAHWAAXGLTG4267-85-12 11:00:00 Test Item Value Reference Range Interpretation Comments UA Bili (test code = Negative 1(01/15/2012 N UA Bili) 05:00:00) [facility] ParkwayUgikqxoHGDUHQCWNW1924-68-31 11:00:00 Test Item Value Reference Range Interpretation Comments UA Blood (test code = Moderate A UA Blood) *ABN*(01/15/2012 05:00:00) [facility]ownSlrqydjVIGBVNLUEP8965-28-80 11:00:00 Test Item Value Reference Range Interpretation Comments UA Urobilinogen (test code = UA 0.2 0.1-1.0 N Urobilinogen) [facility]ownTaqponnYEQWVYQODZ1187-42-46 11:00:00 Test Item Value Reference Range Interpretation Comments UA Color (test code = Yellow *NA*(01/15/2012 UA Color) 05:00:00) [facility]ptownXzqutoyTOLURAZOTJ6420-44-75 11:00:00 Test Item Value Reference Range Interpretation Comments UA Nitrite (test code Negative (01/15/2012 N = UA Nitrite) 05:00:00) [facility] ParkwayUvmyqotDNHYYVPRDC1040-43-79 11:00:00 Test Item Value Reference Range Interpretation Comments UA Turbidity (test code = Clear (01/15/2012 N UA Turbidity) 05:00:00) [facility] ParkwayGilrvtdRWYRJCYWXP8763-78-42 11:00:00 Test Item Value Reference Range Interpretation Comments UA Leuk Est (test Negative (01/15/2012 N code = UA Leuk Est) 05:00:00) [facility] ParkwayKqybgzxRTVTLLVMPY3915-25-28 11:00:00 Test Item Value Reference Range Interpretation Comments UA Glucose (test code Negative (01/15/2012 N = UA Glucose) 05:00:00) [facility] ParkwayBbagzxmDHKFVULPSJ1719-50-19 11:00:00 Test Item Value Reference Range Interpretation Comments UA Protein (test code = 100 mg/dL A UA Protein) *ABN*(01/15/2012 05:00:00) [facility] ParkwayGrhqwixTNYIQJXOZR9240-49-48 11:00:00 Test Item Value Reference Range Interpretation Comments UA Ketones (test code Negative = UA Ketones) *NA*(01/15/2012 05:00:00) [facility] ParkwayGwicurfSOYNIKSVMQ6184-14-88 11:00:00 Test Item Value Reference Range Interpretation Comments UA Bili (test code = Negative 1(01/15/2012 N UA Bili) 05:00:00) [facility] ParkwayRmwhaajSJIDNKIEPG1542-49-15 11:00:00 Test Item Value Reference Range Interpretation Comments UA Blood (test code = Moderate A UA Blood) *ABN*(01/15/2012 05:00:00) [facility] ParkwayWyopeiiVVDMZKIAKI6451-00-58 11:00:00 Test Item Value Reference Range Interpretation Comments UA Urobilinogen (test code = UA 0.2 0.1-1.0 N Urobilinogen) [facility] ParkwayZokpqpjTKSWBUULHS8823-42-92 11:00:00 Test Item Value Reference Range Interpretation Comments UA Color (test code = Yellow *NA*(01/15/2012 UA Color) 05:00:00) [facility] ParkwayQkeefogGBHTLJKZUO1246-05-46 11:00:00 Test Item Value Reference Range Interpretation Comments UA Nitrite (test code Negative (01/15/2012 N = UA Nitrite) 05:00:00) [facility] HospitalTxkxipeVWPYYHBNMD3534-79-71 11:00:00 Test Item Value Reference Range Interpretation Comments UA Leuk Est (test Negative (01/15/2012 N code = UA Leuk Est) 05:00:00) [facility]ownHvgbegjFUOJPFGBTY8048-62-47 11:00:00 Test Item Value Reference Range Interpretation Comments UA WBC (test code = UA 0-2 /HPF (01/15/2012 N WBC) 05:00:00) [facility]ownJrbvjwuUZXCJYDSZR0009-26-03 11:00:00 Test Item Value Reference Range Interpretation Comments UA Sq Epi (test code = Rare /LPF (01/15/2012 N UA Sq Epi) 05:00:00) [facility]ptownClevlcoHQAZHSFZLY7418-86-07 11:00:00 Test Item Value Reference Range Interpretation Comments UA Bacteria (test code = Few /HPF (01/15/2012 N UA Bacteria) 05:00:00) [facility]ptownMfjqlskYYYLBANFKO0867-88-64 11:00:00 Test Item Value Reference Range Interpretation Comments UA RBC (test 3-5 /HPF See_Comment A [Automated mes surya] code = UA RBC) *ABN*(01/15/2012 The syste m which 05:00:00) generated this result transmitted ref erence range: <=2. The reference range was not used to int erpret this result as normal/abnormal . [facility] ParkwayDnzvnphJTPZPKNTXT4747-07-76 11:00:00 Test Item Value Reference Range Interpretation Comments UA Mucus (test code = Few /LPF (01/15/2012 N UA Mucus) 05:00:00) [facility]ptownRjlbwmbQGYRMZYFKF5239-54-30 11:00:00 Test Item Value Reference Range Interpretation Comments UA pH (test code = UA pH) 6.0 1 5.0-8.0 N [facility]ptownXzngkwjWKLCWEKMCX2029-56-56 11:00:00 Test Item Value Reference Range Interpretation Comments UA Spec Grav (test code = UA Spec 1.025 1 N Grav) [facility]ptownIzdepwePMTAIZIWOL2420-57-53 11:00:00 Test Item Value Reference Range Interpretation Comments UA Turbidity (test code = Clear (01/15/2012 N UA Turbidity) 05:00:00) [facility]ownUcgmqcuUQPBHGNSZK4170-80-72 11:00:00 Test Item Value Reference Range Interpretation Comments UA Glucose (test code Negative (01/15/2012 N = UA Glucose) 05:00:00) [facility] ParkwayXfvjsnpPDHZQEWBRK9638-77-92 11:00:00 Test Item Value Reference Range Interpretation Comments UA Protein (test code = 100 mg/dL A UA Protein) *ABN*(01/15/2012 05:00:00) [facility] ParkwayOhftmoiEQRYYGZCIB5179-92-75 11:00:00 Test Item Value Reference Range Interpretation Comments UA Ketones (test code Negative = UA Ketones) *NA*(01/15/2012 05:00:00) [facility] ParkwayXisgmjiXILNSFUZXF1839-08-54 11:00:00 Test Item Value Reference Range Interpretation Comments UA Bili (test code = Negative 1(01/15/2012 N UA Bili) 05:00:00) [facility] ParkwayUhqvereDDEUHLNCUR6779-28-46 11:00:00 Test Item Value Reference Range Interpretation Comments UA Blood (test code = Moderate A UA Blood) *ABN*(01/15/2012 05:00:00) [facility] ParkwayIcgxejfQYNNYPLAUV5456-55-44 11:00:00 Test Item Value Reference Range Interpretation Comments UA Urobilinogen (test code = UA 0.2 0.1-1.0 N Urobilinogen) [facility] ParkwaySscfhabXLUHZHOKIU4827-73-62 11:00:00 Test Item Value Reference Range Interpretation Comments UA Color (test code = Yellow *NA*(01/15/2012 UA Color) 05:00:00) [facility] ParkwayEnmhrzrVOSQPFNBKC0272-85-46 11:00:00 Test Item Value Reference Range Interpretation Comments UA Nitrite (test code Negative (01/15/2012 N = UA Nitrite) 05:00:00) [facility]wayFmmvtojJDQSNKHVUW8165-05-14 11:00:00 Test Item Value Reference Range Interpretation Comments UA Leuk Est (test Negative (01/15/2012 N code = UA Leuk Est) 05:00:00) [facility] ParkwayWrpwkxoJUBDBIJHVP4740-44-10 11:00:00 Test Item Value Reference Range Interpretation Comments UA WBC (test code = UA 0-2 /HPF (01/15/2012 N WBC) 05:00:00) [facility] ParkwayUsowmkgLKLPAKJEAP9990-25-13 11:00:00 Test Item Value Reference Range Interpretation Comments UA Sq Epi (test code = Rare /LPF (01/15/2012 N UA Sq Epi) 05:00:00) [facility]ownOuxbjikXHBHRYDNMJ6268-67-99 11:00:00 Test Item Value Reference Range Interpretation Comments UA Bacteria (test code = Few /HPF (01/15/2012 N UA Bacteria) 05:00:00) [facility] ParkwayKiuoporBNWQSQUWZC4756-62-80 11:00:00 Test Item Value Reference Range Interpretation Comments UA RBC (test 3-5 /HPF See_Comment A [Automated mes surya] code = UA RBC) *ABN*(01/15/2012 The syste m which 05:00:00) generated this result transmitted ref erence range: <=2. The reference range was not used to int erpret this result as normal/abnormal . [facility] ParkwayCahfihrMKRHVUCVMN8701-71-64 11:00:00 Test Item Value Reference Range Interpretation Comments UA Mucus (test code = Few /LPF (01/15/2012 N UA Mucus) 05:00:00) [facility] ParkwayBzbmadyZWEJAWWYIM9476-99-73 11:00:00 Test Item Value Reference Range Interpretation Comments UA pH (test code = UA pH) 6.0 1 5.0-8.0 N [facility] ParkwayXmwacjkYRYXGGHYGF0336-11-31 11:00:00 Test Item Value Reference Range Interpretation Comments UA Spec Grav (test code = UA Spec 1.025 1 N Grav) [facility] ParkwayPlbzahmAERUKGRECL6814-65-66 11:00:00 Test Item Value Reference Range Interpretation Comments UA Turbidity (test code = Clear (01/15/2012 N UA Turbidity) 05:00:00) [facility] ParkwayZsnjxiyROHQZHFQVK3845-25-79 11:00:00 Test Item Value Reference Range Interpretation Comments UA Glucose (test code Negative (01/15/2012 N = UA Glucose) 05:00:00) [facility] ParkwayWoopjxrPWYDALZJNY2928-99-28 11:00:00 Test Item Value Reference Range Interpretation Comments UA Protein (test code = 100 mg/dL A UA Protein) *ABN*(01/15/2012 05:00:00) [facility] ParkwaySomlgczFMTFQFLKRE7999-58-82 11:00:00 Test Item Value Reference Range Interpretation Comments UA Ketones (test code Negative = UA Ketones) *NA*(01/15/2012 05:00:00) [facility]ptownMqxisttULPUKOGJZI4122-94-51 11:00:00 Test Item Value Reference Range Interpretation Comments UA Bili (test code = Negative 1(01/15/2012 N UA Bili) 05:00:00) [facility] ParkwayFmuwdnzTFWEIBWGTK1971-47-28 11:00:00 Test Item Value Reference Range Interpretation Comments UA Blood (test code = Moderate A UA Blood) *ABN*(01/15/2012 05:00:00) [facility] ParkwayAizzezyPVEVYXRNVE8277-13-18 11:00:00 Test Item Value Reference Range Interpretation Comments UA Urobilinogen (test code = UA 0.2 0.1-1.0 N Urobilinogen) [facility] ParkwayUwmreyePWSXLAQXKA6113-18-12 11:00:00 Test Item Value Reference Range Interpretation Comments UA Color (test code = Yellow *NA*(01/15/2012 UA Color) 05:00:00) [facility] ParkwayKctfmwxWYSISRZADJ7633-14-53 11:00:00 Test Item Value Reference Range Interpretation Comments UA Nitrite (test code Negative (01/15/2012 N = UA Nitrite) 05:00:00) [facility]VuakpkpSOSFJVZSLD5526-04-73 11:00:00 Test Item Value Reference Range Interpretation Comments UA Leuk Est (test Negative (01/15/2012 N code = UA Leuk Est) 05:00:00) [facility]ptownOjjxieoHMEUBUGLTV1607-19-71 11:00:00 Test Item Value Reference Range Interpretation Comments UA WBC (test code = UA 0-2 /HPF (01/15/2012 N WBC) 05:00:00) [facility] HospitalNnqdlneTIJDZTRFYT1339-00-49 11:00:00 Test Item Value Reference Range Interpretation Comments UA Sq Epi (test code = Rare /LPF (01/15/2012 N UA Sq Epi) 05:00:00) [facility]ptownQayywxnUKYJGOBOMG4306-46-88 11:00:00 Test Item Value Reference Range Interpretation Comments UA Bacteria (test code = Few /HPF (01/15/2012 N UA Bacteria) 05:00:00) [facility]ptownCjiidwqMHQUGACWDN0790-59-05 11:00:00 Test Item Value Reference Range Interpretation Comments UA RBC (test 3-5 /HPF See_Comment A [Automated mes surya] code = UA RBC) *ABN*(01/15/2012 The syste m which 05:00:00) generated this result transmitted ref erence range: <=2. The reference range was not used to int erpret this result as normal/abnormal . [facility] ParkwayQlllhrrGHQAABEWQZ9113-64-67 11:00:00 Test Item Value Reference Range Interpretation Comments UA Mucus (test code = Few /LPF (01/15/2012 N UA Mucus) 05:00:00) [facility]ptownFrxfdjwALVIKVQLHC6398-34-34 11:00:00 Test Item Value Reference Range Interpretation Comments UA pH (test code = UA pH) 6.0 1 5.0-8.0 N [facility] UptownXvyhcxhUBGYMTKHSS3955-96-41 11:00:00 Test Item Value Reference Range Interpretation Comments UA Spec Grav (test code = UA Spec 1.025 1 N Grav) [facility] ParkwayCqkagfhAXEQKSHMII5060-23-99 11:00:00 Test Item Value Reference Range Interpretation Comments UA Turbidity (test code = Clear (01/15/2012 N UA Turbidity) 05:00:00) [facility]ptownOqlkimiJOQHBFTOFP4019-72-05 11:00:00 Test Item Value Reference Range Interpretation Comments UA Glucose (test code Negative (01/15/2012 N = UA Glucose) 05:00:00) [facility] ParkwayKtyxdapYCXPVBTYLO0516-20-00 11:00:00 Test Item Value Reference Range Interpretation Comments UA Protein (test code = 100 mg/dL A UA Protein) *ABN*(01/15/2012 05:00:00) [facility] ParkwayIrpqqhoSLELNEMEQO1703-92-98 11:00:00 Test Item Value Reference Range Interpretation Comments UA Ketones (test code Negative = UA Ketones) *NA*(01/15/2012 05:00:00) [facility] UptownKllitsbVEVFJPWLRP8617-08-93 11:00:00 Test Item Value Reference Range Interpretation Comments UA Bili (test code = Negative 1(01/15/2012 N UA Bili) 05:00:00) [facility]ptownKkbhmzjEMFAIGERRM5846-72-85 11:00:00 Test Item Value Reference Range Interpretation Comments UA Blood (test code = Moderate A UA Blood) *ABN*(01/15/2012 05:00:00) [facility] UptownNfrweqnUJTPDOEDAH7624-01-31 11:00:00 Test Item Value Reference Range Interpretation Comments UA Urobilinogen (test code = UA 0.2 0.1-1.0 N Urobilinogen) [facility] ParkwayRhrmqkpAWLHIQYGAH0770-83-97 11:00:00 Test Item Value Reference Range Interpretation Comments UA Color (test code = Yellow *NA*(01/15/2012 UA Color) 05:00:00) [facility] ParkwayUeinauuXMIBMEZDZN0963-36-77 11:00:00 Test Item Value Reference Range Interpretation Comments UA Nitrite (test code Negative (01/15/2012 N = UA Nitrite) 05:00:00) [facility] ParkwayKirgqxdGFKGEIBGEK1512-51-92 11:00:00 Test Item Value Reference Range Interpretation Comments UA Leuk Est (test Negative (01/15/2012 N code = UA Leuk Est) 05:00:00) [facility] ParkwayOazjvkrBYURKTKLVA6575-33-68 11:00:00 Test Item Value Reference Range Interpretation Comments UA WBC (test code = UA 0-2 /HPF (01/15/2012 N WBC) 05:00:00) [facility] ParkwayIrfbayySIFIDGDWBS9423-28-94 11:00:00 Test Item Value Reference Range Interpretation Comments UA Sq Epi (test code = Rare /LPF (01/15/2012 N UA Sq Epi) 05:00:00) [facility] ParkwayLjzsbxrWMVFVZZRXI5143-63-32 11:00:00 Test Item Value Reference Range Interpretation Comments UA Bacteria (test code = Few /HPF (01/15/2012 N UA Bacteria) 05:00:00) [facility] ParkwayBsflrrhPJFZYCUHRV2435-39-67 11:00:00 Test Item Value Reference Range Interpretation Comments UA RBC (test 3-5 /HPF See_Comment A [Automated mes surya] code = UA RBC) *ABN*(01/15/2012 The syste m which 05:00:00) generated this result transmitted ref erence range: <=2. The reference range was not used to int erpret this result as normal/abnormal . [facility] ParkwayTbdaxraCMYUCUPRKG4303-97-02 11:00:00 Test Item Value Reference Range Interpretation Comments UA Mucus (test code = Few /LPF (01/15/2012 N UA Mucus) 05:00:00) [facility] ParkwayYidwxuaPXHCITCXEY9292-17-30 11:00:00 Test Item Value Reference Range Interpretation Comments UA pH (test code = UA pH) 6.0 1 5.0-8.0 N [facility] UptownVijqgflDXLOUTDUEX5450-19-57 11:00:00 Test Item Value Reference Range Interpretation Comments UA Spec Grav (test code = UA Spec 1.025 1 N Grav) [facility] ParkwayTkobsxlPVSGPZMZPB5370-57-21 11:00:00 Test Item Value Reference Range Interpretation Comments UA Turbidity (test code = Clear (01/15/2012 N UA Turbidity) 05:00:00) [facility]ptownOygifzxJRACZQUGSX5127-32-82 11:00:00 Test Item Value Reference Range Interpretation Comments UA Glucose (test code Negative (01/15/2012 N = UA Glucose) 05:00:00) [facility] ParkwayObubtfeUAYWRGDQCK2753-12-34 11:00:00 Test Item Value Reference Range Interpretation Comments UA Protein (test code = 100 mg/dL A UA Protein) *ABN*(01/15/2012 05:00:00) [facility] ParkwayQhmblgeCNAWELPHRF6195-79-32 11:00:00 Test Item Value Reference Range Interpretation Comments UA Ketones (test code Negative = UA Ketones) *NA*(01/15/2012 05:00:00) [facility] ParkwayIhmoiypHNEAPSMGCU1125-50-04 11:00:00 Test Item Value Reference Range Interpretation Comments UA Bili (test code = Negative 1(01/15/2012 N UA Bili) 05:00:00) [facility] ParkwayQwhqimnPPSYXIFISF2897-05-68 11:00:00 Test Item Value Reference Range Interpretation Comments UA Blood (test code = Moderate A UA Blood) *ABN*(01/15/2012 05:00:00) [facility] UptownMzerwmvEUHAIPOVQD1646-49-09 11:00:00 Test Item Value Reference Range Interpretation Comments UA Urobilinogen (test code = UA 0.2 0.1-1.0 N Urobilinogen) [facility] UptownPovhafqDTJMVTXBZM7799-80-14 11:00:00 Test Item Value Reference Range Interpretation Comments UA Color (test code = Yellow *NA*(01/15/2012 UA Color) 05:00:00) [facility] UptownDyipfemKZABMAYLAZ8638-62-06 11:00:00 Test Item Value Reference Range Interpretation Comments UA Nitrite (test code Negative (01/15/2012 N = UA Nitrite) 05:00:00) [facility] HospitalBprbynqASDTBCWGFQ3965-54-21 11:00:00 Test Item Value Reference Range Interpretation Comments UA Leuk Est (test Negative (01/15/2012 N code = UA Leuk Est) 05:00:00) [facility] UptownTebagcdEYHLYMDCLS2709-47-40 11:00:00 Test Item Value Reference Range Interpretation Comments UA WBC (test code = UA 0-2 /HPF (01/15/2012 N WBC) 05:00:00) [facility] UptownSnqnliqXYOSNWSBBB6147-99-41 11:00:00 Test Item Value Reference Range Interpretation Comments UA Sq Epi (test code = Rare /LPF (01/15/2012 N UA Sq Epi) 05:00:00) [facility] UptownOunudafVYYCCGBXGM7402-36-48 11:00:00 Test Item Value Reference Range Interpretation Comments UA Bacteria (test code = Few /HPF (01/15/2012 N UA Bacteria) 05:00:00) [facility] UptownEqiejqbCNGJKWICSZ7125-35-41 11:00:00 Test Item Value Reference Range Interpretation Comments UA RBC (test 3-5 /HPF See_Comment A [Automated mes surya] code = UA RBC) *ABN*(01/15/2012 The syste m which 05:00:00) generated this result transmitted ref erence range: <=2. The reference range was not used to int erpret this result as normal/abnormal . [facility] UptownZlmvjcnDNBKMWXOLG4851-31-95 11:00:00 Test Item Value Reference Range Interpretation Comments UA Mucus (test code = Few /LPF (01/15/2012 N UA Mucus) 05:00:00) [facility] UptownQqbnvhpZSMFDFLFNZ5542-98-90 11:00:00 Test Item Value Reference Range Interpretation Comments UA pH (test code = UA pH) 6.0 1 5.0-8.0 N [facility] UptownSglsocoFSBMVUYTGG7727-56-28 11:00:00 Test Item Value Reference Range Interpretation Comments UA Spec Grav (test code = UA Spec 1.025 1 N Grav) [facility] UptownXxmpkriTTNSJVMIWH8979-42-45 11:00:00 Test Item Value Reference Range Interpretation Comments UA Turbidity (test code = Clear (01/15/2012 N UA Turbidity) 05:00:00) [facility] ParkwayEosdbgyAOHVGPQQGG1418-36-24 11:00:00 Test Item Value Reference Range Interpretation Comments UA Glucose (test code Negative (01/15/2012 N = UA Glucose) 05:00:00) [facility] ParkwayRshfljxHTWHZNFCZF9333-47-84 11:00:00 Test Item Value Reference Range Interpretation Comments UA Protein (test code = 100 mg/dL A UA Protein) *ABN*(01/15/2012 05:00:00) [facility] ParkwayMqnsamjRUFPDZEREZ2620-65-65 11:00:00 Test Item Value Reference Range Interpretation Comments UA Ketones (test code Negative = UA Ketones) *NA*(01/15/2012 05:00:00) [facility] ParkwayWjezaxgJIMJJBCLBF5420-84-57 11:00:00 Test Item Value Reference Range Interpretation Comments UA Bili (test code = Negative 1(01/15/2012 N UA Bili) 05:00:00) [facility] ParkwayVxwoublOLNDXXADCG4385-73-61 11:00:00 Test Item Value Reference Range Interpretation Comments UA Blood (test code = Moderate A UA Blood) *ABN*(01/15/2012 05:00:00) [facility] ParkwayMrgvsxeNAZMZPBFTD9083-65-11 11:00:00 Test Item Value Reference Range Interpretation Comments UA Urobilinogen (test code = UA 0.2 0.1-1.0 N Urobilinogen) [facility] ParkwayPoxdesuCTHCGFNJVP6653-52-76 11:00:00 Test Item Value Reference Range Interpretation Comments UA Color (test code = Yellow *NA*(01/15/2012 UA Color) 05:00:00) [facility] ParkwayAkbnbyjVNESFJERZM7669-35-80 11:00:00 Test Item Value Reference Range Interpretation Comments UA Nitrite (test code Negative (01/15/2012 N = UA Nitrite) 05:00:00) [facility] ParkwayGabgcjrUAFPMAUQZS3169-84-88 11:00:00 Test Item Value Reference Range Interpretation Comments UA Leuk Est (test Negative (01/15/2012 N code = UA Leuk Est) 05:00:00) [facility] ParkwayQaqxpxfXNPNEQOMSX0609-85-01 11:00:00 Test Item Value Reference Range Interpretation Comments UA WBC (test code = UA 0-2 /HPF (01/15/2012 N WBC) 05:00:00) [facility] ParkwayWhdqsqsTIPBPTBOMO5763-25-75 11:00:00 Test Item Value Reference Range Interpretation Comments UA Sq Epi (test code = Rare /LPF (01/15/2012 N UA Sq Epi) 05:00:00) [facility] ParkwayPzmmpswJEQFLVQLWN8463-78-57 11:00:00 Test Item Value Reference Range Interpretation Comments UA Bacteria (test code = Few /HPF (01/15/2012 N UA Bacteria) 05:00:00) [facility] ParkwayTsfsltgNQGJONEKLH8720-71-40 11:00:00 Test Item Value Reference Range Interpretation Comments UA RBC (test 3-5 /HPF See_Comment A [Automated mes surya] code = UA RBC) *ABN*(01/15/2012 The syste m which 05:00:00) generated this result transmitted ref erence range: <=2. The reference range was not used to int erpret this result as normal/abnormal . [facility] ParkwayBybjdflMDTZMXOIIR8950-03-12 11:00:00 Test Item Value Reference Range Interpretation Comments UA Mucus (test code = Few /LPF (01/15/2012 N UA Mucus) 05:00:00) [facility] ParkwayPksqowmRDUZOGKHMM7762-55-69 11:00:00 Test Item Value Reference Range Interpretation Comments UA pH (test code = UA pH) 6.0 1 5.0-8.0 N [facility] ParkwayGtbhplkICKPEAAGRK1679-68-98 11:00:00 Test Item Value Reference Range Interpretation Comments UA Spec Grav (test code = UA Spec 1.025 1 N Grav) [facility] ParkwayJjzuhitXNLKXWRYEJ9797-43-65 11:00:00 Test Item Value Reference Range Interpretation Comments UA Turbidity (test code = Clear (01/15/2012 N UA Turbidity) 05:00:00) [facility] ParkwayKzxjuhwCDSNIMDAYL8925-60-01 11:00:00 Test Item Value Reference Range Interpretation Comments UA Glucose (test code Negative (01/15/2012 N = UA Glucose) 05:00:00) [facility] ParkwayNaorbgfNOTVFPNOLR8676-98-16 11:00:00 Test Item Value Reference Range Interpretation Comments UA Protein (test code = 100 mg/dL A UA Protein) *ABN*(01/15/2012 05:00:00) [facility] ParkwayHjguhngVAOECLWUHG6533-72-27 11:00:00 Test Item Value Reference Range Interpretation Comments UA Ketones (test code Negative = UA Ketones) *NA*(01/15/2012 05:00:00) [facility]ptownIsfaclwHJABZTHOKQ3612-29-20 11:00:00 Test Item Value Reference Range Interpretation Comments UA Bili (test code = Negative 1(01/15/2012 N UA Bili) 05:00:00) [facility]ptownBmmvqsqUOPPEWXFGN6141-10-87 11:00:00 Test Item Value Reference Range Interpretation Comments UA Blood (test code = Moderate A UA Blood) *ABN*(01/15/2012 05:00:00) [facility] ParkwayFsuaqizNQGYLUZFFS9069-83-56 11:00:00 Test Item Value Reference Range Interpretation Comments UA Urobilinogen (test code = UA 0.2 0.1-1.0 N Urobilinogen) [facility] ParkwayGqidlcbKVSUIPYRHV5897-10-66 11:00:00 Test Item Value Reference Range Interpretation Comments UA Color (test code = Yellow *NA*(01/15/2012 UA Color) 05:00:00) [facility] ParkwayLvktmymFNBIOQBUYK8629-58-54 11:00:00 Test Item Value Reference Range Interpretation Comments UA Nitrite (test code Negative (01/15/2012 N = UA Nitrite) 05:00:00) [facility]PfhyrtvEUCNXNCHVV6088-68-88 11:00:00 Test Item Value Reference Range Interpretation Comments UA Leuk Est (test Negative (01/15/2012 N code = UA Leuk Est) 05:00:00) [facility] ParkwayXpkowxyKAODEXEHMR0031-32-65 11:00:00 Test Item Value Reference Range Interpretation Comments UA WBC (test code = UA 0-2 /HPF (01/15/2012 N WBC) 05:00:00) [facility] HospitalZtqiixwPOTYUJJRTJ8353-28-04 11:00:00 Test Item Value Reference Range Interpretation Comments UA Sq Epi (test code = Rare /LPF (01/15/2012 N UA Sq Epi) 05:00:00) [facility]ptownCnobqsoZQBEZKBEEF3551-51-99 11:00:00 Test Item Value Reference Range Interpretation Comments UA Bacteria (test code = Few /HPF (01/15/2012 N UA Bacteria) 05:00:00) [facility]ptownCnwgtepGEQVGPLGEM5015-07-38 11:00:00 Test Item Value Reference Range Interpretation Comments UA RBC (test 3-5 /HPF See_Comment A [Automated mes surya] code = UA RBC) *ABN*(01/15/2012 The syste m which 05:00:00) generated this result transmitted ref erence range: <=2. The reference range was not used to int erpret this result as normal/abnormal . [facility] UptownRmodaluDXWNWBVFYW1694-16-66 11:00:00 Test Item Value Reference Range Interpretation Comments UA Mucus (test code = Few /LPF (01/15/2012 N UA Mucus) 05:00:00) [facility]ptownHbbstpyAYQCJPXUIO9041-88-10 11:00:00 Test Item Value Reference Range Interpretation Comments UA pH (test code = UA pH) 6.0 1 5.0-8.0 N [facility] UptownRlhjnqfPNEJKCVSPH9240-39-45 11:00:00 Test Item Value Reference Range Interpretation Comments UA Spec Grav (test code = UA Spec 1.025 1 N Grav) [facility] UptownLniaqneWDFJJGJIBW9450-27-57 11:00:00 Test Item Value Reference Range Interpretation Comments UA Turbidity (test code = Clear (01/15/2012 N UA Turbidity) 05:00:00) [facility]ptownWyhzjiiXWIGDGPFPK0058-88-10 11:00:00 Test Item Value Reference Range Interpretation Comments UA Glucose (test code Negative (01/15/2012 N = UA Glucose) 05:00:00) [facility]ptownJbwzjyaWKRMLQIVUK3918-86-56 11:00:00 Test Item Value Reference Range Interpretation Comments UA Protein (test code = 100 mg/dL A UA Protein) *ABN*(01/15/2012 05:00:00) [facility] UptownIabedqlXSOKIAUZCT3726-37-49 11:00:00 Test Item Value Reference Range Interpretation Comments UA Ketones (test code Negative = UA Ketones) *NA*(01/15/2012 05:00:00) [facility]ptownPjcmrflEFBMNGWYSM1392-68-16 11:00:00 Test Item Value Reference Range Interpretation Comments UA Bili (test code = Negative 1(01/15/2012 N UA Bili) 05:00:00) [facility]ptownDlwpfheOOXJAXGHQW1035-88-29 11:00:00 Test Item Value Reference Range Interpretation Comments UA Blood (test code = Moderate A UA Blood) *ABN*(01/15/2012 05:00:00) [facility] UptownYmerigjFHQGFLMDLT4474-09-62 11:00:00 Test Item Value Reference Range Interpretation Comments UA Urobilinogen (test code = UA 0.2 0.1-1.0 N Urobilinogen) [facility]ptownVmwfvubITDIMDCGPH4349-83-30 11:00:00 Test Item Value Reference Range Interpretation Comments UA Color (test code = Yellow *NA*(01/15/2012 UA Color) 05:00:00) [facility]ptownLqnuhlwKBLXTFDYQE9258-35-93 11:00:00 Test Item Value Reference Range Interpretation Comments UA Nitrite (test code Negative (01/15/2012 N = UA Nitrite) 05:00:00) [facility]ptownAtnsqgpLZBNOYDSPS5614-89-83 11:00:00 Test Item Value Reference Range Interpretation Comments UA Leuk Est (test Negative (01/15/2012 N code = UA Leuk Est) 05:00:00) [facility] UptownMutpgzdXCDRUUXLZV9521-71-28 11:00:00 Test Item Value Reference Range Interpretation Comments UA WBC (test code = UA 0-2 /HPF (01/15/2012 N WBC) 05:00:00) [facility] HospitalDxvwawaBUNSBPGPPE6308-19-12 11:00:00 Test Item Value Reference Range Interpretation Comments UA Sq Epi (test code = Rare /LPF (01/15/2012 N UA Sq Epi) 05:00:00) [facility]ptownNyuwqepVJNLNTYQUP8584-82-08 11:00:00 Test Item Value Reference Range Interpretation Comments UA Bacteria (test code = Few /HPF (01/15/2012 N UA Bacteria) 05:00:00) [facility]ptownDhphbygQITMTEDCDK1934-68-95 11:00:00 Test Item Value Reference Range Interpretation Comments UA RBC (test 3-5 /HPF See_Comment A [Automated mes surya] code = UA RBC) *ABN*(01/15/2012 The syste m which 05:00:00) generated this result transmitted ref erence range: <=2. The reference range was not used to int erpret this result as normal/abnormal . [facility] UptownFvqxoggZQRLUWCZMI2300-31-47 11:00:00 Test Item Value Reference Range Interpretation Comments UA Mucus (test code = Few /LPF (01/15/2012 N UA Mucus) 05:00:00) [facility] ParkwayEspdbjcXFNPJJTJAF9475-92-49 11:00:00 Test Item Value Reference Range Interpretation Comments UA pH (test code = UA pH) 6.0 1 5.0-8.0 N [facility] ParkwayFtmeaosSTBHZXYMNE6822-99-28 11:00:00 Test Item Value Reference Range Interpretation Comments UA Spec Grav (test code = UA Spec 1.025 1 N Grav) [facility] ParkwayIgaonorHSFKSDJXIR0422-87-97 11:00:00 Test Item Value Reference Range Interpretation Comments UA Turbidity (test code = Clear (01/15/2012 N UA Turbidity) 05:00:00) [facility] ParkwayFojmqhlFKVUPESGPU1942-23-34 11:00:00 Test Item Value Reference Range Interpretation Comments UA Glucose (test code Negative (01/15/2012 N = UA Glucose) 05:00:00) [facility] ParkwayYwkuldlPLVWGEGBMI6291-90-19 11:00:00 Test Item Value Reference Range Interpretation Comments UA Protein (test code = 100 mg/dL A UA Protein) *ABN*(01/15/2012 05:00:00) [facility] ParkwayXwfsawgZMOHVUKUMD9718-03-98 11:00:00 Test Item Value Reference Range Interpretation Comments UA Ketones (test code Negative = UA Ketones) *NA*(01/15/2012 05:00:00) [facility]wayDwruiaxPWCQJOCLKK0997-70-42 11:00:00 Test Item Value Reference Range Interpretation Comments UA Bili (test code = Negative 1(01/15/2012 N UA Bili) 05:00:00) [facility] ParkwayJqxhwodJXXRQVZKPY9909-97-20 11:00:00 Test Item Value Reference Range Interpretation Comments UA Blood (test code = Moderate A UA Blood) *ABN*(01/15/2012 05:00:00) [facility] ParkwayMieotprQQDSLEIANQ5190-72-58 11:00:00 Test Item Value Reference Range Interpretation Comments UA Urobilinogen (test code = UA 0.2 0.1-1.0 N Urobilinogen) [facility] ParkwayIoqctilWMHTEFSGBI3475-09-58 11:00:00 Test Item Value Reference Range Interpretation Comments UA Color (test code = Yellow *NA*(01/15/2012 UA Color) 05:00:00) [facility] ParkwayLiclqaqSAQIDNXELW9216-67-96 11:00:00 Test Item Value Reference Range Interpretation Comments UA Nitrite (test code Negative (01/15/2012 N = UA Nitrite) 05:00:00) [facility]XAVFO0115-34-36 11:00:00 Test Item Value Reference Range Interpretation Comments UA Leuk Est (test Negative (01/15/2012 N code = UA Leuk Est) 05:00:00) [facility]ownUimcplsKDMGYSVINJ7372-61-78 11:00:00 Test Item Value Reference Range Interpretation Comments UA WBC (test code = UA 0-2 /HPF (01/15/2012 N WBC) 05:00:00) [facility]XdctnyeDZKELSXNPI8269-38-11 11:00:00 Test Item Value Reference Range Interpretation Comments UA Sq Epi (test code = Rare /LPF (01/15/2012 N UA Sq Epi) 05:00:00) [facility]ptownGhvyazzYDTOOHNYAH4034-76-98 11:00:00 Test Item Value Reference Range Interpretation Comments UA Bacteria (test code = Few /HPF (01/15/2012 N UA Bacteria) 05:00:00) [facility] UptownFjhsoekEMCVCZJASY2254-36-38 11:00:00 Test Item Value Reference Range Interpretation Comments UA RBC (test code = UA 3-5 /HPF <=2 A RBC) *ABN*(01/15/2012 05:00:00) [facility] ParkwayArgmdmmPIVSRNKDAL5204-38-58 11:00:00 Test Item Value Reference Range Interpretation Comments UA Mucus (test code = Few /LPF (01/15/2012 N UA Mucus) 05:00:00) [facility] UptownBrxmnenCHXXNOGOJC6385-10-58 11:00:00 Test Item Value Reference Range Interpretation Comments UA pH (test code = UA pH) 6.0 1 5.0-8.0 N [facility] UptownRtwhouaTPXMZJOVAC4832-13-22 11:00:00 Test Item Value Reference Range Interpretation Comments UA Spec Grav (test code = UA Spec 1.025 1 N Grav) [facility] UptownZitkqakKWXLWZVEXZ2252-03-27 11:00:00 Test Item Value Reference Range Interpretation Comments UA Turbidity (test code = Clear (01/15/2012 N UA Turbidity) 05:00:00) [facility]ptownVwjyqudLCQVGLBYLS2956-86-89 11:00:00 Test Item Value Reference Range Interpretation Comments UA Glucose (test code Negative (01/15/2012 N = UA Glucose) 05:00:00) [facility] ParkwayAmrpibwUUVATMIWIF8819-92-13 11:00:00 Test Item Value Reference Range Interpretation Comments UA Protein (test code = 100 mg/dL A UA Protein) *ABN*(01/15/2012 05:00:00) [facility] ParkwayAutfstuUYRXOFKVFJ4730-82-03 11:00:00 Test Item Value Reference Range Interpretation Comments UA Ketones (test code Negative = UA Ketones) *NA*(01/15/2012 05:00:00) [facility] ParkwayEovouikCSNRXZRZCS4005-50-43 11:00:00 Test Item Value Reference Range Interpretation Comments UA Bili (test code = Negative 1(01/15/2012 N UA Bili) 05:00:00) [facility] ParkwayGkdkzxaLAAGQMCPRO4176-48-35 11:00:00 Test Item Value Reference Range Interpretation Comments UA Blood (test code = Moderate A UA Blood) *ABN*(01/15/2012 05:00:00) [facility] ParkwayUlvjkvpMUXULCTTZH2531-36-37 11:00:00 Test Item Value Reference Range Interpretation Comments UA Urobilinogen (test code = UA 0.2 0.1-1.0 N Urobilinogen) [facility] ParkwayEreelvjPVLUAPGLXK9283-13-16 11:00:00 Test Item Value Reference Range Interpretation Comments UA Color (test code = Yellow *NA*(01/15/2012 UA Color) 05:00:00) [facility] ParkwayMivtwokPKUFOTJSER0656-42-77 11:00:00 Test Item Value Reference Range Interpretation Comments UA Nitrite (test code Negative (01/15/2012 N = UA Nitrite) 05:00:00) [facility] ParkwayDqhsqjzHHUEESFQQU4537-87-60 11:00:00 Test Item Value Reference Range Interpretation Comments UA Leuk Est (test Negative (01/15/2012 N code = UA Leuk Est) 05:00:00) [facility]ballQukgaqpNktlodrlczjt2459-09-22 16:25:00 Test Item Value Reference Range Interpretation Comments Culture: Stool (test code = Culture: Stool) [facility] TomballThdnmwwJwxdffmeyrac5745-74-62 16:25:00 Test Item Value Reference Range Interpretation Comments Culture: Stool (test code = Culture: Stool) [facility] TomballEsckoyhQdvsdnmedvie5242-83-50 16:25:00 Test Item Value Reference Range Interpretation Comments Culture: Stool (test code = Culture: Stool) [address] 16:25:00 Test Item Value Reference Range Interpretation Comments Culture: Stool (test code = Culture: Stool) [address]11-12 16:25:00 Test Item Value Reference Range Interpretation Comments Culture: Stool (test code = Culture: Stool) [address] 16:25:00 Test Item Value Reference Range Interpretation Comments Culture: Stool (test code = Culture: Stool) [place] [address]-12 16:25:00 Test Item Value Reference Range Interpretation Comments Culture: Stool (test code = Culture: Stool) [address] 16:25:00 Test Item Value Reference Range Interpretation Comments Culture: Stool (test code = Culture: Stool) [place] [address]12 16:25:00 Test Item Value Reference Range Interpretation Comments Culture: Stool (test code = Culture: Stool) [address] 16:25:00 Test Item Value Reference Range Interpretation Comments Culture: Stool (test code = Culture: Stool) [address]11-12 16:25:00 Test Item Value Reference Range Interpretation Comments Culture: Stool (test code = Culture: Stool) [address]11-12 16:25:00 Test Item Value Reference Range Interpretation Comments Culture: Stool (test code = Culture: Stool) [address] 16:25:00 Test Item Value Reference Range Interpretation Comments Culture: Stool (test code = Culture: Stool) [place] [address]12 16:25:00 Test Item Value Reference Range Interpretation Comments Culture: Stool (test code = Culture: Stool) [address] 16:25:00 Test Item Value Reference Range Interpretation Comments Culture: Stool (test code = Culture: Stool) [address] 16:25:00 Test Item Value Reference Range Interpretation Comments Culture: Stool (test code = Culture: Stool) [place] [address]12 16:25:00 Test Item Value Reference Range Interpretation Comments Culture: Stool (test code = Culture: Stool) [facility]ballVepbnrfIscpaswctoux0804-50-14 16:25:00 Test Item Value Reference Range Interpretation Comments Culture: Stool (test code = Culture: Stool) [facility] TomballUdapxewMvjimzgiflru2249-70-79 16:25:00 Test Item Value Reference Range Interpretation Comments Culture: Stool (test code = Culture: Stool) [facility] TomballLtkzrbeUvjhqmtemlnz3527-65-43 16:25:00 Test Item Value Reference Range Interpretation Comments Culture: Stool (test code = Culture: Stool) [facility]IykecycKTCHIBJNJ9027-16-65 14:05:00 Test Item Value Reference Range Interpretation Comments Chloride Lvl (test code = Chloride Lvl) 96 95-109 N [facility] CenterZbqzkyxQOTRUXCKU0126-17-23 14:05:00 Test Item Value Reference Range Interpretation Comments Bili Total (test code = Bili Total) 1.6 0.2-1.3 H [facility] CenterPnwnucuONCQVIUEL7516-89-07 14:05:00 Test Item Value Reference Range Interpretation Comments AST (test code = AST) 22 See_Comment N [Auto mated message] The system which ge nerated this result transmit pradeep reference range : <=37. The reference range was not used to interpr et this result as maximus l/abnormal. [facility] CenterDgnaxfzFFRYIDNAD8134-62-77 14:05:00 Test Item Value Reference Range Interpretation Comments ALT (test code = ALT) 47 See_Comment N [Auto mated message] The system which ge nerated this result transmit pradeep reference range : <=65. The reference range was not used to interpr et this result as maximus l/abnormal. [facility] CenterLviwcxgUWMYXUIRR3146-42-85 14:05:00 Test Item Value Reference Range Interpretation Comments Albumin Lvl (test code = Albumin Lvl) 4.5 3.5-5.0 N [facility] CenterVzrwhvtCRWSGPFTC0897-83-08 14:05:00 Test Item Value Reference Range Interpretation Comments Total Protein (test code = Total 8.8 6.4-8.4 H Protein) [facility] CenterXkuzbjpBWUMILPKB7151-62-60 14:05:00 Test Item Value Reference Range Interpretation Comments Alk Phos (test code = Alk Phos) 81 39-136 N [facility] CenterTpfrakoNRAHVSMUV9778-36-22 14:05:00 Test Item Value Reference Range Interpretation Comments BUN (test code = BUN) 19 7-22 N [facility] CenterLyikjbzVRBMGJNUS9367-42-00 14:05:00 Test Item Value Reference Range Interpretation Comments Creatinine Lvl (test code = Creatinine 1.3 0.5-1.4 N Lvl) [facility] CenterEfqdiqeNCTZQAFFQ7626-81-66 14:05:00 Test Item Value Reference Range Interpretation Comments Potassium Lvl (test code = Potassium 3.8 3.5-5.1 N Lvl) [facility] CenterNkfovftCINBLMFXG9478-83-16 14:05:00 Test Item Value Reference Range Interpretation Comments Sodium Lvl (test code = Sodium Lvl) 133 135-145 L [facility] CenterJgwbwixLZTAOMWPX9600-62-22 14:05:00 Test Item Value Reference Range Interpretation Comments Glucose Lvl (test code = Glucose Lvl) 123 70-99 H [facility] CenterEnjhnooSKZGCZAYM3708-14-27 14:05:00 Test Item Value Reference Range Interpretation Comments Lipase Lvl (test code = Lipase Lvl) 38 73-393 L [facility] CenterQoqjrmlRSUXTRVBRE0224-68-51 14:05:00 Test Item Value Reference Range Interpretation Comments MCV (test code = MCV) 93.6 80.0-94.0 N [facility] CenterHrhsbtjGZWRPCEFPX4035-84-35 14:05:00 Test Item Value Reference Range Interpretation Comments MCH (test code = MCH) 32.0 pg 27.0-31.0 H [facility] CenterXircaihRHTJVTXQWB1169-70-95 14:05:00 Test Item Value Reference Range Interpretation Comments MCHC (test code = MCHC) 34.2 32.0-36.0 N [facility] CenterGtxidvcHGJDSSPURW7161-82-87 14:05:00 Test Item Value Reference Range Interpretation Comments RDW (test code = RDW) 13.5 11.5-14.5 N [facility] CenterHyjjofeCVPHHRUGBD0168-03-51 14:05:00 Test Item Value Reference Range Interpretation Comments Platelet (test code = Platelet) 359 133-450 N [facility] CenterXlqjkpuQNAXVPOINM6232-70-48 14:05:00 Test Item Value Reference Range Interpretation Comments WBC (test code = WBC) 7.2 3.7-10.4 N [facility] CenterIogqtsaTEVNNCGEPW7342-33-63 14:05:00 Test Item Value Reference Range Interpretation Comments RBC (test code = RBC) 5.46 4.70-6.10 N [facility] CenterUptqbplTGXCKJVHVM1273-22-31 14:05:00 Test Item Value Reference Range Interpretation Comments MPV (test code = MPV) 9.0 7.4-10.4 N [facility] CenterIhuuommXPQSYAHGTG9884-10-29 14:05:00 Test Item Value Reference Range Interpretation Comments Hgb (test code = Hgb) 17.5 14.0-18.0 N [facility] CenterFfguykmEMWYNZZQKF4629-81-13 14:05:00 Test Item Value Reference Range Interpretation Comments Hct (test code = Hct) 51.1 42.0-54.0 N [facility] CenterDhzxhbuRBVKCHEDNF1852-71-26 14:05:00 Test Item Value Reference Range Interpretation Comments Bands (test code = 27.0 See_Comment H [Automat ed message] The Bands) system which ge nerated this result transmit pradeep reference range : <=11.0. The reference r caitlin was not used to interpr et this result as maximus l/abnormal. [facility] CenterUhujlxrMKDAMNYFWM0048-75-19 14:05:00 Test Item Value Reference Range Interpretation Comments Lymphocytes (test code = Lymphocytes) 9.0 20.0-40.0 L [facility] CenterJrkbrakZLHXLRHWOW5722-07-25 14:05:00 Test Item Value Reference Range Interpretation Comments Monocytes (test code = Monocytes) 16.0 2.0-12.0 H [facility] CenterWxinpyvPLXHPTYOCZ0334-58-50 14:05:00 Test Item Value Reference Range Interpretation Comments Eosinophils (test code = 1.0 See_Comment N [A utomated message] The Eosinophils) system which ge nerated this result tra nsmitted reference range : <=4.0. The reference r caitlin was not used to int erpret this result as normal/abnormal . [facility] CenterVqtlzooGYAKNWCUDF4413-99-19 14:05:00 Test Item Value Reference Range Interpretation Comments Metamyelocytes (test code 4.0 See_Comment H [ Automated message] = Metamyelocytes) The system which generated this result transmitted ref erence range: <=1.0. T he reference range was not used to int erpret this result as normal/abnormal . [facility] CenterBuugsbnHUGETQYWBM8052-18-67 14:05:00 Test Item Value Reference Range Interpretation Comments Atypical Lymphs (test code = Atypical 0.0 N Lymphs) [facility] CenterZfyvvljZDHNSEIBZB7151-77-79 14:05:00 Test Item Value Reference Range Interpretation Comments Tot Cell Ct (test code = Tot Cell Ct) 100 1 [facility] CenterDtpshalSSPWJPDSJJ1494-29-01 14:05:00 Test Item Value Reference Range Interpretation Comments Large Plt (test code = Slight *ABN*(01/14/2012 A Large Plt) 08:05:00) [facility] CenterRpeaxaiTQCEOUTBKK7849-90-94 14:05:00 Test Item Value Reference Range Interpretation Comments Eosinophils # (test code 0.1 See_Comment N [A utomated message] The = Eosinophils #) system whic h generated this result tra nsmitted reference range : <=0.5. The reference r caitlin was not used to int erpret this result as normal/abnormal . [facility] CenterYkbjbhqJXRZDXJMZX7215-36-45 14:05:00 Test Item Value Reference Range Interpretation Comments Monocytes # (test code 1.2 See_Comment H [Aut omated message] The = Monocytes #) system which generated this result tra nsmitted reference range : <=0.8. The reference r caitlin was not used to int erpret this result as normal/abnormal . [facility] CenterXvpobdfNPAGEBEYQP5314-91-85 14:05:00 Test Item Value Reference Range Interpretation Comments Segs (test code = Segs) 43.0 45.0-75.0 L [facility] CenterZhutlgsLCRRBBCMEP8265-99-16 14:05:00 Test Item Value Reference Range Interpretation Comments Lymphocytes # (test code = Lymphocytes 0.6 1.0-5.5 L #) [facility] CenterLrsifxaXLQGSGDIYM0778-34-79 14:05:00 Test Item Value Reference Range Interpretation Comments Segs-Bands # (test code = Segs-Bands #) 5.0 1.5-8.1 N [facility] CenterQkkcufiIVJQQKRMU4623-23-32 14:05:00 Test Item Value Reference Range Interpretation Comments Amylase Lvl (test code = Amylase Lvl) 13 25-115 L [facility] CenterNoaayjaNIFQWZOGD3214-53-13 14:05:00 Test Item Value Reference Range Interpretation Comments A/G Ratio (test code = A/G Ratio) 1.0 0.7-1.6 N [facility] CenterWqidtcjCTJOIDGVV3914-19-10 14:05:00 Test Item Value Reference Range Interpretation Comments AGAP (test code = AGAP) 17.8 10.0-20.0 N [facility] CenterEtjyhpeREUMYZVBQ6198-61-64 14:05:00 Test Item Value Reference Range Interpretation Comments Globulin (test code = Globulin) 4.3 2.0-4.0 H [facility] CenterWdzqwinUVUROHAIX7147-04-09 14:05:00 Test Item Value Reference Range Interpretation Comments B/C Ratio (test code = B/C Ratio) 15 6-25 N [facility] CenterSnloqffAXLRFFSSH1104-17-66 14:05:00 Test Item Value Reference Range Interpretation Comments eGFR (test code = eGFR) 65 [facility] CenterAsuyebuQOMUAEEHQ9284-55-94 14:05:00 Test Item Value Reference Range Interpretation Comments Calcium Lvl (test code = Calcium Lvl) 9.3 8.5-10.5 N [facility] CenterHovphhcXAELSLXMY4425-34-05 14:05:00 Test Item Value Reference Range Interpretation Comments CO2 (test code = CO2) 23 24-32 L [facility] CenterJktogoiIAGCHMGDD3502-28-64 14:05:00 Test Item Value Reference Range Interpretation Comments Chloride Lvl (test code = Chloride Lvl) 96 95-109 N [facility] CenterQkkrsmtNURJFCAOP5777-14-81 14:05:00 Test Item Value Reference Range Interpretation Comments Bili Total (test code = Bili Total) 1.6 0.2-1.3 H [facility] CenterHjnohtrZROGAISYO1132-74-91 14:05:00 Test Item Value Reference Range Interpretation Comments AST (test code = AST) 22 See_Comment N [Auto mated message] The system which ge nerated this result transmit pradeep reference range : <=37. The reference range was not used to interpr et this result as maximus l/abnormal. [facility] CenterIpmmgafCZUOGIWXS6910-32-91 14:05:00 Test Item Value Reference Range Interpretation Comments ALT (test code = ALT) 47 See_Comment N [Auto mated message] The system which ge nerated this result transmit pradeep reference range : <=65. The reference range was not used to interpr et this result as maximus l/abnormal. [facility] CenterJubqixcBVYYXEDNN8229-97-63 14:05:00 Test Item Value Reference Range Interpretation Comments Albumin Lvl (test code = Albumin Lvl) 4.5 3.5-5.0 N [facility] CenterGznycnnOBBAFWFAL0659-53-77 14:05:00 Test Item Value Reference Range Interpretation Comments Total Protein (test code = Total 8.8 6.4-8.4 H Protein) [facility] CenterEakphgkPXOAUXPSO8264-91-79 14:05:00 Test Item Value Reference Range Interpretation Comments Alk Phos (test code = Alk Phos) 81 39-136 N [facility] CenterEkujqdiHNVEFFISM5708-38-62 14:05:00 Test Item Value Reference Range Interpretation Comments BUN (test code = BUN) 19 7-22 N [facility] CenterZmyixxzWMUQNXIVQ4739-89-26 14:05:00 Test Item Value Reference Range Interpretation Comments Creatinine Lvl (test code = Creatinine 1.3 0.5-1.4 N Lvl) [facility] CenterTxbcpdwSJZLFNOXD8605-01-40 14:05:00 Test Item Value Reference Range Interpretation Comments Potassium Lvl (test code = Potassium 3.8 3.5-5.1 N Lvl) [facility] CenterGehivcgRHRQBXKAP7676-88-02 14:05:00 Test Item Value Reference Range Interpretation Comments Sodium Lvl (test code = Sodium Lvl) 133 135-145 L [facility] CenterFirucurPUQJYWJZE4316-91-35 14:05:00 Test Item Value Reference Range Interpretation Comments Glucose Lvl (test code = Glucose Lvl) 123 70-99 H [facility] CenterUibeffgMCBWGZBTG5296-41-46 14:05:00 Test Item Value Reference Range Interpretation Comments Lipase Lvl (test code = Lipase Lvl) 38 73-393 L [facility] CenterZgdzxodVELIGZCKNE6414-09-94 14:05:00 Test Item Value Reference Range Interpretation Comments MCV (test code = MCV) 93.6 80.0-94.0 N [facility] CenterYsesqspTBCDDNQUOB5950-67-20 14:05:00 Test Item Value Reference Range Interpretation Comments MCH (test code = MCH) 32.0 pg 27.0-31.0 H [facility] CenterDkfvalqJTWPFJVRGU2685-03-14 14:05:00 Test Item Value Reference Range Interpretation Comments MCHC (test code = MCHC) 34.2 32.0-36.0 N [facility] CenterYcsmcffSAEMKIRCZI0408-19-65 14:05:00 Test Item Value Reference Range Interpretation Comments RDW (test code = RDW) 13.5 11.5-14.5 N [facility] CenterUluwuidVFSGWYQSHM4620-37-61 14:05:00 Test Item Value Reference Range Interpretation Comments Platelet (test code = Platelet) 359 133-450 N [facility] CenterJvlzpirFUROZLJFVN0034-13-77 14:05:00 Test Item Value Reference Range Interpretation Comments WBC (test code = WBC) 7.2 3.7-10.4 N [facility] CenterEhdhskoSSJTDMFJEC3126-22-50 14:05:00 Test Item Value Reference Range Interpretation Comments RBC (test code = RBC) 5.46 4.70-6.10 N [facility] CenterVvylrvkJUPKBPIPDW4995-60-68 14:05:00 Test Item Value Reference Range Interpretation Comments MPV (test code = MPV) 9.0 7.4-10.4 N [facility] CenterTpnhjkqJCATZTDLBW6694-95-60 14:05:00 Test Item Value Reference Range Interpretation Comments Hgb (test code = Hgb) 17.5 14.0-18.0 N [facility] CenterCookgwrDJXGZAYSKJ6125-30-51 14:05:00 Test Item Value Reference Range Interpretation Comments Hct (test code = Hct) 51.1 42.0-54.0 N [facility] CenterTbltjneFBQMMBEMPX6622-27-10 14:05:00 Test Item Value Reference Range Interpretation Comments Bands (test code = 27.0 See_Comment H [Automat ed message] The Bands) system which ge nerated this result transmit pradeep reference range : <=11.0. The reference r caitlin was not used to interpr et this result as maximus l/abnormal. [facility] CenterOcnrghgQBYHPMEORI5750-38-03 14:05:00 Test Item Value Reference Range Interpretation Comments Lymphocytes (test code = Lymphocytes) 9.0 20.0-40.0 L [facility] CenterDvxypyiWDPXVIUYOC7256-52-75 14:05:00 Test Item Value Reference Range Interpretation Comments Monocytes (test code = Monocytes) 16.0 2.0-12.0 H [facility] CenterTqcfyfwSRUXSMVIRD4211-43-27 14:05:00 Test Item Value Reference Range Interpretation Comments Eosinophils (test code = 1.0 See_Comment N [A utomated message] The Eosinophils) system which ge nerated this result tra nsmitted reference range : <=4.0. The reference r caitlin was not used to int erpret this result as normal/abnormal . [facility] CenterCwnwtimDLCGZVCCYG8959-82-34 14:05:00 Test Item Value Reference Range Interpretation Comments Metamyelocytes (test code 4.0 See_Comment H [ Automated message] = Metamyelocytes) The system which generated this result transmitted ref erence range: <=1.0. T he reference range was not used to int erpret this result as normal/abnormal . [facility] CenterEzqzgssKIMURQSCYD8927-09-29 14:05:00 Test Item Value Reference Range Interpretation Comments Atypical Lymphs (test code = Atypical 0.0 N Lymphs) [facility] CenterPhaidfvQDOROQSDME5949-86-66 14:05:00 Test Item Value Reference Range Interpretation Comments Tot Cell Ct (test code = Tot Cell Ct) 100 1 [facility] CenterOqcyvpyLVWAHIOJIK3079-53-75 14:05:00 Test Item Value Reference Range Interpretation Comments Large Plt (test code = Slight *ABN*(01/14/2012 A Large Plt) 08:05:00) [facility] CenterEgayhvsXTXPLLPOZP2803-35-04 14:05:00 Test Item Value Reference Range Interpretation Comments Eosinophils # (test code 0.1 See_Comment N [A utomated message] The = Eosinophils #) system whic h generated this result tra nsmitted reference range : <=0.5. The reference r caitlin was not used to int erpret this result as normal/abnormal . [facility] CenterGngnoybPZFRCFOCZG3617-46-44 14:05:00 Test Item Value Reference Range Interpretation Comments Monocytes # (test code 1.2 See_Comment H [Aut omated message] The = Monocytes #) system which generated this result tra nsmitted reference range : <=0.8. The reference r caitlin was not used to int erpret this result as normal/abnormal . [facility] CenterHnxwrpoIAHIGYPMKT5099-59-71 14:05:00 Test Item Value Reference Range Interpretation Comments Segs (test code = Segs) 43.0 45.0-75.0 L [facility] CenterOuepxrfVFURELKWZS3951-81-44 14:05:00 Test Item Value Reference Range Interpretation Comments Lymphocytes # (test code = Lymphocytes 0.6 1.0-5.5 L #) [facility] CenterRaocebuMEYAPIDEKC9109-22-88 14:05:00 Test Item Value Reference Range Interpretation Comments Segs-Bands # (test code = Segs-Bands #) 5.0 1.5-8.1 N [facility] CenterMsbsqxvTFAMDOBWQ8905-97-79 14:05:00 Test Item Value Reference Range Interpretation Comments Amylase Lvl (test code = Amylase Lvl) 13 25-115 L [facility] CenterAhlfnfnHEMUUIBBJ4532-74-98 14:05:00 Test Item Value Reference Range Interpretation Comments A/G Ratio (test code = A/G Ratio) 1.0 0.7-1.6 [facility] CenterScqthmfIEYEOTHLR1046-39-75 14:05:00 Test Item Value Reference Range Interpretation Comments AGAP (test code = AGAP) 17.8 10.0-20.0 N [facility] CenterBfskpqoJYXLBFEEB0580-57-10 14:05:00 Test Item Value Reference Range Interpretation Comments Globulin (test code = Globulin) 4.3 2.0-4.0 H [facility] CenterSqoelmkPMVVQGHAX9551-71-68 14:05:00 Test Item Value Reference Range Interpretation Comments B/C Ratio (test code = B/C Ratio) 15 6-25 N [facility] CenterLjzwrnnTOLIGTOCL5032-21-58 14:05:00 Test Item Value Reference Range Interpretation Comments eGFR (test code = eGFR) 65 [facility] CenterCwsfqleGSMUNUJER0050-67-43 14:05:00 Test Item Value Reference Range Interpretation Comments Calcium Lvl (test code = Calcium Lvl) 9.3 8.5-10.5 N [facility] CenterFayczzbXCKUYQALB7056-80-50 14:05:00 Test Item Value Reference Range Interpretation Comments CO2 (test code = CO2) 23 24-32 L [facility] CenterYogcyoiLSCZPXBOU3331-34-15 14:05:00 Test Item Value Reference Range Interpretation Comments Chloride Lvl (test code = Chloride Lvl) 96 95-109 N [facility] CenterTtkudarDZGZJOQKL0030-53-30 14:05:00 Test Item Value Reference Range Interpretation Comments Bili Total (test code = Bili Total) 1.6 0.2-1.3 H [facility] CenterPqhihuoFFYANFRON3514-25-86 14:05:00 Test Item Value Reference Range Interpretation Comments AST (test code = AST) 22 See_Comment N [Auto mated message] The system which ge nerated this result transmit pradeep reference range : <=37. The reference range was not used to interpr et this result as maximus l/abnormal. [facility] CenterVhkpznwOKUAYDLBN7631-07-65 14:05:00 Test Item Value Reference Range Interpretation Comments ALT (test code = ALT) 47 See_Comment N [Auto mated message] The system which ge nerated this result transmit pradeep reference range : <=65. The reference range was not used to interpr et this result as maximus l/abnormal. [facility] CenterHfjrqefLNROZVLSS8311-76-13 14:05:00 Test Item Value Reference Range Interpretation Comments Albumin Lvl (test code = Albumin Lvl) 4.5 3.5-5.0 N [facility] CenterTdslsehPUIRXGEDG3005-30-26 14:05:00 Test Item Value Reference Range Interpretation Comments Total Protein (test code = Total 8.8 6.4-8.4 H Protein) [facility] CenterGnledclEPLMEWCMJ0804-95-35 14:05:00 Test Item Value Reference Range Interpretation Comments Alk Phos (test code = Alk Phos) 81 39-136 N [facility] CenterUvpxjsvYKHPYEOPK7460-48-19 14:05:00 Test Item Value Reference Range Interpretation Comments BUN (test code = BUN) 19 7-22 N [facility] CenterJoxdzszKTODYXTBY0289-52-98 14:05:00 Test Item Value Reference Range Interpretation Comments Creatinine Lvl (test code = Creatinine 1.3 0.5-1.4 N Lvl) [facility] CenterAqyfumhLCRLYREXX2400-30-02 14:05:00 Test Item Value Reference Range Interpretation Comments Potassium Lvl (test code = Potassium 3.8 3.5-5.1 N Lvl) [facility] CenterZgockhxXJKOIQMSO0381-41-03 14:05:00 Test Item Value Reference Range Interpretation Comments Sodium Lvl (test code = Sodium Lvl) 133 135-145 L [facility] CenterPxhryxhUTPIJQDER8908-05-65 14:05:00 Test Item Value Reference Range Interpretation Comments Glucose Lvl (test code = Glucose Lvl) 123 70-99 H [facility] CenterJpljhxeKRNYARUPB6073-86-08 14:05:00 Test Item Value Reference Range Interpretation Comments Lipase Lvl (test code = Lipase Lvl) 38 73-393 L [facility] CenterHdahhrwARFTFSTTFG9885-20-72 14:05:00 Test Item Value Reference Range Interpretation Comments MCV (test code = MCV) 93.6 80.0-94.0 N [facility] CenterLaturtySCHVIMKWQH5622-95-28 14:05:00 Test Item Value Reference Range Interpretation Comments MCH (test code = MCH) 32.0 pg 27.0-31.0 H [facility] CenterHysgxeePLYLWOZADZ3208-49-30 14:05:00 Test Item Value Reference Range Interpretation Comments MCHC (test code = MCHC) 34.2 32.0-36.0 N [facility] CenterJkgqxajZBPFCBCWEE3857-45-17 14:05:00 Test Item Value Reference Range Interpretation Comments RDW (test code = RDW) 13.5 11.5-14.5 N [facility] CenterMzgyudcCENTQSCIEK7682-27-68 14:05:00 Test Item Value Reference Range Interpretation Comments Platelet (test code = Platelet) 359 133-450 N [facility] CenterGvvpavgYEFHTWLEWE2385-98-50 14:05:00 Test Item Value Reference Range Interpretation Comments WBC (test code = WBC) 7.2 3.7-10.4 N [facility] CenterMrmsgreULLCWSDBNL2234-18-62 14:05:00 Test Item Value Reference Range Interpretation Comments RBC (test code = RBC) 5.46 4.70-6.10 N [facility] CenterJyxatkxEAENFNQABG0569-60-43 14:05:00 Test Item Value Reference Range Interpretation Comments MPV (test code = MPV) 9.0 7.4-10.4 N [facility] CenterMcroqtvHBVCYCNYUH0108-02-88 14:05:00 Test Item Value Reference Range Interpretation Comments Hgb (test code = Hgb) 17.5 14.0-18.0 N [facility] CenterOjieuxuRMFAOTDNWX4487-77-05 14:05:00 Test Item Value Reference Range Interpretation Comments Hct (test code = Hct) 51.1 42.0-54.0 N [facility] CenterAqzzzdeLUVSZLUTWI8379-70-51 14:05:00 Test Item Value Reference Range Interpretation Comments Bands (test code = 27.0 See_Comment H [Automat ed message] The Bands) system which ge nerated this result transmit pradeep reference range : <=11.0. The reference r caitlin was not used to interpr et this result as maximus l/abnormal. [facility] CenterPbjlrftWAKQJNAQGX1692-73-42 14:05:00 Test Item Value Reference Range Interpretation Comments Lymphocytes (test code = Lymphocytes) 9.0 20.0-40.0 L [facility] CenterCszjpypFDEDUELYIZ0697-88-44 14:05:00 Test Item Value Reference Range Interpretation Comments Monocytes (test code = Monocytes) 16.0 2.0-12.0 H [facility] CenterSbjyjqjPHKWXPRUCR9743-25-34 14:05:00 Test Item Value Reference Range Interpretation Comments Eosinophils (test code = 1.0 See_Comment N [A utomated message] The Eosinophils) system which ge nerated this result tra nsmitted reference range : <=4.0. The reference r caitlin was not used to int erpret this result as normal/abnormal . [facility] CenterXuqvrffXURLXEUBNX4290-79-52 14:05:00 Test Item Value Reference Range Interpretation Comments Metamyelocytes (test code 4.0 See_Comment H [ Automated message] = Metamyelocytes) The system which generated this result transmitted ref erence range: <=1.0. T he reference range was not used to int erpret this result as normal/abnormal . [facility] CenterOxuhysmXBDWUBRKVV2701-37-81 14:05:00 Test Item Value Reference Range Interpretation Comments Atypical Lymphs (test code = Atypical 0.0 N Lymphs) [facility] CenterDtalckhWNOYNNRYQJ4118-84-95 14:05:00 Test Item Value Reference Range Interpretation Comments Tot Cell Ct (test code = Tot Cell Ct) 100 1 [facility] CenterFhhvyvpKRTIMKOOXS9014-95-99 14:05:00 Test Item Value Reference Range Interpretation Comments Large Plt (test code = Slight *ABN*(01/14/2012 A Large Plt) 08:05:00) [facility] CenterJxuwpeoPYMLHOGWMW2152-84-74 14:05:00 Test Item Value Reference Range Interpretation Comments Eosinophils # (test code 0.1 See_Comment N [A utomated message] The = Eosinophils #) system [facility] h generated this result tra nsmitted reference range : <=0.5. The reference r caitlin was not used to int erpret this result as normal/abnormal . [facility] CenterHbytwyxBRHWYQVSHA2060-43-68 14:05:00 Test Item Value Reference Range Interpretation Comments Monocytes # (test code 1.2 See_Comment H [Aut omated message] The = Monocytes #) system which generated this result tra nsmitted reference range : <=0.8. The reference r caitlin was not used to int erpret this result as normal/abnormal . [facility] CenterIblgougOGMQIJHTJS0278-78-79 14:05:00 Test Item Value Reference Range Interpretation Comments Segs (test code = Segs) 43.0 45.0-75.0 L [facility] CenterGfyxqvaYZZMHZFSSF2433-78-63 14:05:00 Test Item Value Reference Range Interpretation Comments Lymphocytes # (test code = Lymphocytes 0.6 1.0-5.5 L #) [facility]ObjckwaMRMXVQSTCC7817-88-63 14:05:00 Test Item Value Reference Range Interpretation Comments Segs-Bands # (test code = Segs-Bands #) 5.0 1.5-8.1 N [facility]mjxpgxGPWHDYOZX0912-05-96 14:05:00 Test Item Value Reference Range Interpretation Comments Amylase Lvl (test code = Amylase Lvl) 13 25-115 L [facility] CenterGxcidikANYCLWLGQ1811-80-10 14:05:00 Test Item Value Reference Range Interpretation Comments A/G Ratio (test code = A/G Ratio) 1.0 0.7-1.6 N [facility] CenterRmuyjteQFHZWAMQF3552-71-20 14:05:00 Test Item Value Reference Range Interpretation Comments AGAP (test code = AGAP) 17.8 10.0-20.0 N [facility] CenterZpozkmnNUZFBXPSN7229-29-87 14:05:00 Test Item Value Reference Range Interpretation Comments Globulin (test code = Globulin) 4.3 2.0-4.0 H [facility] CenterQgtsgqoAWVZNASVO3239-95-93 14:05:00 Test Item Value Reference Range Interpretation Comments B/C Ratio (test code = B/C Ratio) 15 6-25 N [facility] CenterZgrfyhkZOEDYWBEZ5207-14-93 14:05:00 Test Item Value Reference Range Interpretation Comments eGFR (test code = eGFR) 65 [facility] CenterXauyugkZUWSVCIEN8947-58-34 14:05:00 Test Item Value Reference Range Interpretation Comments Calcium Lvl (test code = Calcium Lvl) 9.3 8.5-10.5 N [facility] CenterKzkfbupBXTIFEGGG0168-40-59 14:05:00 Test Item Value Reference Range Interpretation Comments CO2 (test code = CO2) 23 24-32 L [facility] CenterPiksamrRUWRVOZZS6197-39-20 14:05:00 Test Item Value Reference Range Interpretation Comments Chloride Lvl (test code = Chloride Lvl) 96 95-109 N [facility] CenterWxjhrbbUEMSXAMZH6405-67-46 14:05:00 Test Item Value Reference Range Interpretation Comments Bili Total (test code = Bili Total) 1.6 0.2-1.3 H [facility] CenterHadcxjyHHIYRZQZN0951-57-39 14:05:00 Test Item Value Reference Range Interpretation Comments AST (test code = AST) 22 See_Comment N [Auto mated message] The system which ge nerated this result transmit pradeep reference range : <=37. The reference range was not used to interpr et this result as maximus l/abnormal. [facility] CenterZjwlyooBEKPWZSEQ2796-15-61 14:05:00 Test Item Value Reference Range Interpretation Comments ALT (test code = ALT) 47 See_Comment N [Auto mated message] The system which ge nerated this result transmit pradeep reference range : <=65. The reference range was not used to interpr et this result as maximus l/abnormal. [facility] CenterBozpfphTAAKNNMRS5883-61-85 14:05:00 Test Item Value Reference Range Interpretation Comments Albumin Lvl (test code = Albumin Lvl) 4.5 3.5-5.0 N [facility] CenterWbebkxjDFLGXIGYN7970-29-46 14:05:00 Test Item Value Reference Range Interpretation Comments Total Protein (test code = Total 8.8 6.4-8.4 H Protein) [facility] CenterWomdkvjFNJDCVSMT3064-50-08 14:05:00 Test Item Value Reference Range Interpretation Comments Alk Phos (test code = Alk Phos) 81 39-136 N [facility] CenterBfythxiXDYDHUEUS8412-66-94 14:05:00 Test Item Value Reference Range Interpretation Comments BUN (test code = BUN) 19 7-22 N [facility] CenterZimezypGWQYOLDGU2952-11-87 14:05:00 Test Item Value Reference Range Interpretation Comments Creatinine Lvl (test code = Creatinine 1.3 0.5-1.4 N Lvl) [facility] CenterRuljrceCFLVPDWJT6738-73-97 14:05:00 Test Item Value Reference Range Interpretation Comments Potassium Lvl (test code = Potassium 3.8 3.5-5.1 N Lvl) [facility] CenterCyjbjfyPODBXMUZG8069-19-31 14:05:00 Test Item Value Reference Range Interpretation Comments Sodium Lvl (test code = Sodium Lvl) 133 135-145 L [facility] CenterAufmvdlVWYYXKXQA6878-47-19 14:05:00 Test Item Value Reference Range Interpretation Comments Glucose Lvl (test code = Glucose Lvl) 123 70-99 H [facility] CenterBbemnueRZDNJWXGI6665-36-37 14:05:00 Test Item Value Reference Range Interpretation Comments Lipase Lvl (test code = Lipase Lvl) 38 73-393 L [facility] CenterYhaifzfMBSEMVCNVS6912-73-15 14:05:00 Test Item Value Reference Range Interpretation Comments MCV (test code = MCV) 93.6 80.0-94.0 N [facility] CenterRysthzpBVZOEVOYZF9552-12-73 14:05:00 Test Item Value Reference Range Interpretation Comments MCH (test code = MCH) 32.0 pg 27.0-31.0 H [facility] CenterHabhvehVLWYXSPWCH9552-66-60 14:05:00 Test Item Value Reference Range Interpretation Comments MCHC (test code = MCHC) 34.2 32.0-36.0 N [facility] CenterCxrrpjzECJRKGPNGU4007-11-99 14:05:00 Test Item Value Reference Range Interpretation Comments RDW (test code = RDW) 13.5 11.5-14.5 N [facility] CenterGdijmdmJQVTIMPXQE1427-15-84 14:05:00 Test Item Value Reference Range Interpretation Comments Platelet (test code = Platelet) 359 133-450 N [facility] CenterYpuwhfzMHJSKMEGOK5013-02-69 14:05:00 Test Item Value Reference Range Interpretation Comments WBC (test code = WBC) 7.2 3.7-10.4 N [facility] CenterPzqeerjWNVXHRYFOT7927-96-49 14:05:00 Test Item Value Reference Range Interpretation Comments RBC (test code = RBC) 5.46 4.70-6.10 N [facility] CenterAlcqbmkXOOVTJAWEF9924-61-93 14:05:00 Test Item Value Reference Range Interpretation Comments MPV (test code = MPV) 9.0 7.4-10.4 N [facility] CenterDjhupqfOOOERWRZDT6325-31-76 14:05:00 Test Item Value Reference Range Interpretation Comments Hgb (test code = Hgb) 17.5 14.0-18.0 N [facility] CenterRttxiduZJNWYILHOO5605-40-88 14:05:00 Test Item Value Reference Range Interpretation Comments Hct (test code = Hct) 51.1 42.0-54.0 N [facility] CenterLjvolpfBJACWHHGQQ3562-45-52 14:05:00 Test Item Value Reference Range Interpretation Comments Bands (test code = 27.0 See_Comment H [Automat ed message] The Bands) system which ge nerated this result transmit pradeep reference range : <=11.0. The reference r caitlin was not used to interpr et this result as maximus l/abnormal. [facility] CenterLcdysxiVPIEPXQCHC0301-87-30 14:05:00 Test Item Value Reference Range Interpretation Comments Lymphocytes (test code = Lymphocytes) 9.0 20.0-40.0 L [facility] CenterRoypejyWQLKLZTQML4509-93-96 14:05:00 Test Item Value Reference Range Interpretation Comments Monocytes (test code = Monocytes) 16.0 2.0-12.0 H [facility] CenterKmhdnwvGBBVJNKCNY8569-79-60 14:05:00 Test Item Value Reference Range Interpretation Comments Eosinophils (test code = 1.0 See_Comment N [A utomated message] The Eosinophils) system which ge nerated this result tra nsmitted reference range : <=4.0. The reference r caitlin was not used to int erpret this result as normal/abnormal . [facility] CenterQbegoveQDOJJBSXHH6733-14-07 14:05:00 Test Item Value Reference Range Interpretation Comments Metamyelocytes (test code 4.0 See_Comment H [ Automated message] = Metamyelocytes) The system which generated this result transmitted ref erence range: <=1.0. T he reference range was not used to int erpret this result as normal/abnormal . [facility] CenterDovdekyCRECAUUDOZ9808-98-32 14:05:00 Test Item Value Reference Range Interpretation Comments Atypical Lymphs (test code = Atypical 0.0 N Lymphs) [facility] CenterImaclchVIFDXZKYJB4701-32-03 14:05:00 Test Item Value Reference Range Interpretation Comments Tot Cell Ct (test code = Tot Cell Ct) 100 1 [facility] CenterFaiesmnWACVMZHYEB4440-76-75 14:05:00 Test Item Value Reference Range Interpretation Comments Large Plt (test code = Slight *ABN*(01/14/2012 A Large Plt) 08:05:00) [facility] CenterIxnrwzePAFIFGITTS2635-22-02 14:05:00 Test Item Value Reference Range Interpretation Comments Eosinophils # (test code 0.1 See_Comment N [A utomated message] The = Eosinophils #) system ic h generated this result tra nsmitted reference range : <=0.5. The reference r caitlin was not used to int erpret this result as normal/abnormal . [facility] CenterJyofyaoZLFAICQRUQ6735-80-04 14:05:00 Test Item Value Reference Range Interpretation Comments Monocytes # (test code 1.2 See_Comment H [Aut omated message] The = Monocytes #) system which generated this result tra nsmitted reference range : <=0.8. The reference r caitlin was not used to int erpret this result as normal/abnormal . [facility] CenterMgjqkrzFOAHZQNNFR1187-77-19 14:05:00 Test Item Value Reference Range Interpretation Comments Segs (test code = Segs) 43.0 45.0-75.0 L [facility] CenterFgqgmfgXURTGEWOAC9538-54-51 14:05:00 Test Item Value Reference Range Interpretation Comments Lymphocytes # (test code = Lymphocytes 0.6 1.0-5.5 L #) [facility] CenterZlrvueiGRHMKMTOAX7979-75-52 14:05:00 Test Item Value Reference Range Interpretation Comments Segs-Bands # (test code = Segs-Bands #) 5.0 1.5-8.1 N [facility] CenterLgurrbiMOIJGWDKD1321-19-97 14:05:00 Test Item Value Reference Range Interpretation Comments Amylase Lvl (test code = Amylase Lvl) 13 25-115 L [facility] CenterTwmfgllDKEFRARWL5050-23-15 14:05:00 Test Item Value Reference Range Interpretation Comments A/G Ratio (test code = A/G Ratio) 1.0 0.7-1.6 N [facility] CenterVhfgictLDTBXDBCP7696-62-95 14:05:00 Test Item Value Reference Range Interpretation Comments AGAP (test code = AGAP) 17.8 10.0-20.0 N [facility] CenterGjuhgopJXBAYZGTH2705-39-51 14:05:00 Test Item Value Reference Range Interpretation Comments Globulin (test code = Globulin) 4.3 2.0-4.0 H [facility] CenterEklkqppNWVLBWPBQ4793-99-55 14:05:00 Test Item Value Reference Range Interpretation Comments B/C Ratio (test code = B/C Ratio) 15 6-25 N [facility] CenterDxiwxjzZNLCLWTBI6350-05-57 14:05:00 Test Item Value Reference Range Interpretation Comments eGFR (test code = eGFR) 65 [facility] CenterWjnkrvbMFRISJJCM2540-01-75 14:05:00 Test Item Value Reference Range Interpretation Comments Calcium Lvl (test code = Calcium Lvl) 9.3 8.5-10.5 N [facility] CenterJzzovxiZURKMZTNZ6361-43-49 14:05:00 Test Item Value Reference Range Interpretation Comments CO2 (test code = CO2) 23 24-32 L [facility] CenterPzmsxjkDVDLKRNUD6348-87-73 14:05:00 Test Item Value Reference Range Interpretation Comments Chloride Lvl (test code = Chloride Lvl) 96 95-109 N [facility] CenterKoskbnvPPRKHLUXA1002-06-81 14:05:00 Test Item Value Reference Range Interpretation Comments Bili Total (test code = Bili Total) 1.6 0.2-1.3 H [facility] CenterVnkwwyuHANXIZJYR8021-44-01 14:05:00 Test Item Value Reference Range Interpretation Comments AST (test code = AST) 22 See_Comment N [Auto mated message] The system which ge nerated this result transmit pradeep reference range : <=37. The reference range was not used to interpr et this result as maximus l/abnormal. [facility] CenterFfsuvzbNMZPJPCHU5794-53-22 14:05:00 Test Item Value Reference Range Interpretation Comments ALT (test code = ALT) 47 See_Comment N [Auto mated message] The system which ge nerated this result transmit pradeep reference range : <=65. The reference range was not used to interpr et this result as maximus l/abnormal. [facility] CenterFrphxpfZUZYLGHLV2790-36-16 14:05:00 Test Item Value Reference Range Interpretation Comments Albumin Lvl (test code = Albumin Lvl) 4.5 3.5-5.0 N [facility] CenterJdsgyerZUWDSAIDH7949-24-42 14:05:00 Test Item Value Reference Range Interpretation Comments Total Protein (test code = Total 8.8 6.4-8.4 H Protein) [facility] CenterCkudjcaHRGXWAQBN5321-00-58 14:05:00 Test Item Value Reference Range Interpretation Comments Alk Phos (test code = Alk Phos) 81 39-136 N [facility] CenterAxuxysmYCFGMBBSI0901-13-07 14:05:00 Test Item Value Reference Range Interpretation Comments BUN (test code = BUN) 19 7-22 N [facility] CenterCakkrmkCXXIEYUET4915-61-88 14:05:00 Test Item Value Reference Range Interpretation Comments Creatinine Lvl (test code = Creatinine 1.3 0.5-1.4 N Lvl) [facility] CenterFbapbioOFKLNLGIE0396-75-51 14:05:00 Test Item Value Reference Range Interpretation Comments Potassium Lvl (test code = Potassium 3.8 3.5-5.1 N Lvl) [facility] CenterBhqhugpVRCLZHBOZ0551-26-01 14:05:00 Test Item Value Reference Range Interpretation Comments Sodium Lvl (test code = Sodium Lvl) 133 135-145 L [facility] CenterWkoswsdJVXNIVYUN4278-85-92 14:05:00 Test Item Value Reference Range Interpretation Comments Glucose Lvl (test code = Glucose Lvl) 123 70-99 H [facility] CenterHvxrmmfOXFYSQLKF5410-92-08 14:05:00 Test Item Value Reference Range Interpretation Comments Lipase Lvl (test code = Lipase Lvl) 38 73-393 L [facility] CenterXevunldWNFBBWXKPE0744-08-02 14:05:00 Test Item Value Reference Range Interpretation Comments MCV (test code = MCV) 93.6 80.0-94.0 N [facility] CenterRehltmfDIDSZYBKTU3878-98-09 14:05:00 Test Item Value Reference Range Interpretation Comments MCH (test code = MCH) 32.0 pg 27.0-31.0 H [facility] CenterJoinwnhNXLCQMZILT4835-86-07 14:05:00 Test Item Value Reference Range Interpretation Comments MCHC (test code = MCHC) 34.2 32.0-36.0 N [facility] CenterIgebersDZYWUWRHYY5223-22-16 14:05:00 Test Item Value Reference Range Interpretation Comments RDW (test code = RDW) 13.5 11.5-14.5 N [facility] CenterPqcnggtNZEZMBPPEY4038-27-95 14:05:00 Test Item Value Reference Range Interpretation Comments Platelet (test code = Platelet) 359 133-450 N [facility] CenterEzqgjgzTEPEENAHZR3849-85-16 14:05:00 Test Item Value Reference Range Interpretation Comments WBC (test code = WBC) 7.2 3.7-10.4 N [facility] CenterXmxdypzSHLGEJMMUU0913-02-81 14:05:00 Test Item Value Reference Range Interpretation Comments RBC (test code = RBC) 5.46 4.70-6.10 N [facility] CenterBrschocZOMYHDLRZC3314-56-83 14:05:00 Test Item Value Reference Range Interpretation Comments MPV (test code = MPV) 9.0 7.4-10.4 N [facility] CenterNxlayevMXMUCZNZDV1849-75-52 14:05:00 Test Item Value Reference Range Interpretation Comments Hgb (test code = Hgb) 17.5 14.0-18.0 N [facility] CenterAfuxmwlJCMMRFVUDT4333-22-91 14:05:00 Test Item Value Reference Range Interpretation Comments Hct (test code = Hct) 51.1 42.0-54.0 N [facility] CenterJiitdbjEADXQGEMZX1082-03-82 14:05:00 Test Item Value Reference Range Interpretation Comments Bands (test code = 27.0 See_Comment H [Automat ed message] The Bands) system which ge nerated this result transmit pradeep reference range : <=11.0. The reference r caitlin was not used to interpr et this result as maximus l/abnormal. [facility] CenterCnhwllzEVKFTBRWRU6061-99-35 14:05:00 Test Item Value Reference Range Interpretation Comments Lymphocytes (test code = Lymphocytes) 9.0 20.0-40.0 L [facility] CenterOougxrkGZBUQZITCT1218-79-49 14:05:00 Test Item Value Reference Range Interpretation Comments Monocytes (test code = Monocytes) 16.0 2.0-12.0 H [facility] CenterAqtjttgIEOOAIZRND1164-59-68 14:05:00 Test Item Value Reference Range Interpretation Comments Eosinophils (test code = 1.0 See_Comment N [A utomated message] The Eosinophils) system which ge nerated this result tra nsmitted reference range : <=4.0. The reference r caitlin was not used to int erpret this result as normal/abnormal . [facility] CenterVnsmktnFSVLHTKKPK9827-98-86 14:05:00 Test Item Value Reference Range Interpretation Comments Metamyelocytes (test code 4.0 See_Comment H [ Automated message] = Metamyelocytes) The system which generated this result transmitted ref erence range: <=1.0. T he reference range was not used to int erpret this result as normal/abnormal . [facility] CenterHjagnikKNHJIYPQWC7955-95-11 14:05:00 Test Item Value Reference Range Interpretation Comments Atypical Lymphs (test code = Atypical 0.0 N Lymphs) [facility] CenterRoqngcnYCHFWYVFVV8607-11-78 14:05:00 Test Item Value Reference Range Interpretation Comments Tot Cell Ct (test code = Tot Cell Ct) 100 1 [facility] CenterPoaloigAUEWZEAPIQ5967-06-17 14:05:00 Test Item Value Reference Range Interpretation Comments Large Plt (test code = Slight *ABN*(01/14/2012 A Large Plt) 08:05:00) [facility] CenterCzkgdeiYPYXANUUSL5465-40-29 14:05:00 Test Item Value Reference Range Interpretation Comments Eosinophils # (test code 0.1 See_Comment N [A utomated message] The = Eosinophils #) system whic h generated this result tra nsmitted reference range : <=0.5. The reference r caitlin was not used to int erpret this result as normal/abnormal . [facility] CenterAoiikczNGOUNVNJWG8800-92-20 14:05:00 Test Item Value Reference Range Interpretation Comments Monocytes # (test code 1.2 See_Comment H [Aut omated message] The = Monocytes #) system which generated this result tra nsmitted reference range : <=0.8. The reference r caitlin was not used to int erpret this result as normal/abnormal . [facility] CenterUtzqemvHEFGAUMHUH1213-18-13 14:05:00 Test Item Value Reference Range Interpretation Comments Segs (test code = Segs) 43.0 45.0-75.0 L [facility] CenterSzhhazwXZLSAEOPNQ2211-27-12 14:05:00 Test Item Value Reference Range Interpretation Comments Lymphocytes # (test code = Lymphocytes 0.6 1.0-5.5 L #) [facility] CenterJyvigmaYUQMRVEKTL9122-95-49 14:05:00 Test Item Value Reference Range Interpretation Comments Segs-Bands # (test code = Segs-Bands #) 5.0 1.5-8.1 N [facility] CenterRgupkqfRMUINTANX4542-37-22 14:05:00 Test Item Value Reference Range Interpretation Comments Amylase Lvl (test code = Amylase Lvl) 13 25-115 L [facility] CenterGrwnxoxMAUGQKMEG6518-51-44 14:05:00 Test Item Value Reference Range Interpretation Comments A/G Ratio (test code = A/G Ratio) 1.0 0.7-1.6 N [facility] CenterUgrxgtpRSWYLEBKO2516-84-96 14:05:00 Test Item Value Reference Range Interpretation Comments AGAP (test code = AGAP) 17.8 10.0-20.0 N [facility] CenterOvxdfqzTHMFEGXYX9296-67-70 14:05:00 Test Item Value Reference Range Interpretation Comments Globulin (test code = Globulin) 4.3 2.0-4.0 H [facility] CenterFhwrkdfANSIWMFEI0112-48-70 14:05:00 Test Item Value Reference Range Interpretation Comments B/C Ratio (test code = B/C Ratio) 15 6-25 N [facility] CenterIpjfoacAAZTZWMZV7852-26-36 14:05:00 Test Item Value Reference Range Interpretation Comments eGFR (test code = eGFR) 65 [facility] CenterGdrxyvmHCCPVTNVH7301-15-15 14:05:00 Test Item Value Reference Range Interpretation Comments Calcium Lvl (test code = Calcium Lvl) 9.3 8.5-10.5 N [facility] CenterQbmfagqLPQUTLDHX8803-92-07 14:05:00 Test Item Value Reference Range Interpretation Comments CO2 (test code = CO2) 23 24-32 L [facility] CenterAholofyGKYBGWHUP6469-55-63 14:05:00 Test Item Value Reference Range Interpretation Comments Chloride Lvl (test code = Chloride Lvl) 96 95-109 N [facility] CenterMcgmyuuDXLZGKCOK9785-45-10 14:05:00 Test Item Value Reference Range Interpretation Comments Bili Total (test code = Bili Total) 1.6 0.2-1.3 H [facility] CenterMfjdqnpKWWTRDEWQ8458-87-05 14:05:00 Test Item Value Reference Range Interpretation Comments AST (test code = AST) 22 See_Comment N [Auto mated message] The system which ge nerated this result transmit pradeep reference range : <=37. The reference range was not used to interpr et this result as maximus l/abnormal. [facility] CenterFkeintpBOTCHISLQ9101-06-85 14:05:00 Test Item Value Reference Range Interpretation Comments ALT (test code = ALT) 47 See_Comment N [Auto mated message] The system which ge nerated this result transmit pradeep reference range : <=65. The reference range was not used to interpr et this result as maximus l/abnormal. [facility] CenterExkqgptSEGNEPJOO8627-63-06 14:05:00 Test Item Value Reference Range Interpretation Comments Albumin Lvl (test code = Albumin Lvl) 4.5 3.5-5.0 N [facility] CenterMyrxrdcFOUCUVDDZ4217-79-84 14:05:00 Test Item Value Reference Range Interpretation Comments Total Protein (test code = Total 8.8 6.4-8.4 H Protein) [facility] CenterAwnljgmSPPYDCVDR5579-05-43 14:05:00 Test Item Value Reference Range Interpretation Comments Alk Phos (test code = Alk Phos) 81 39-136 N [facility] CenterXungfavSMUZKSRSE4703-96-22 14:05:00 Test Item Value Reference Range Interpretation Comments BUN (test code = BUN) 19 7-22 N [facility] CenterSrqymxxHTLVUURTY9939-86-51 14:05:00 Test Item Value Reference Range Interpretation Comments Creatinine Lvl (test code = Creatinine 1.3 0.5-1.4 N Lvl) [facility] CenterXckfthpIETKIYMVL0633-18-82 14:05:00 Test Item Value Reference Range Interpretation Comments Potassium Lvl (test code = Potassium 3.8 3.5-5.1 N Lvl) [facility] CenterGujwrxkLIDWPBITX7579-57-36 14:05:00 Test Item Value Reference Range Interpretation Comments Sodium Lvl (test code = Sodium Lvl) 133 135-145 L [facility] CenterKijqexcPRWKAZDRV2516-20-37 14:05:00 Test Item Value Reference Range Interpretation Comments Glucose Lvl (test code = Glucose Lvl) 123 70-99 H [facility] CenterUghzghnSXCGJOGJP8981-06-69 14:05:00 Test Item Value Reference Range Interpretation Comments Lipase Lvl (test code = Lipase Lvl) 38 73-393 L [facility] CenterWytegmsOZRKMNJGEF0792-64-64 14:05:00 Test Item Value Reference Range Interpretation Comments MCV (test code = MCV) 93.6 80.0-94.0 N [facility] CenterAmiwqeiNCVUDRWKUX2736-12-03 14:05:00 Test Item Value Reference Range Interpretation Comments MCH (test code = MCH) 32.0 pg 27.0-31.0 H [facility] CenterNopyisuSAAINBDHTI8376-95-88 14:05:00 Test Item Value Reference Range Interpretation Comments MCHC (test code = MCHC) 34.2 32.0-36.0 N [facility] CenterSfzphkjKPKOSPSZXF8778-24-88 14:05:00 Test Item Value Reference Range Interpretation Comments RDW (test code = RDW) 13.5 11.5-14.5 N [facility] CenterJpagawdYYUMYQPUZO7171-87-43 14:05:00 Test Item Value Reference Range Interpretation Comments Platelet (test code = Platelet) 359 133-450 N [facility] CenterKegvcmwSZUDMFRXFN8827-24-24 14:05:00 Test Item Value Reference Range Interpretation Comments WBC (test code = WBC) 7.2 3.7-10.4 N [facility] CenterPdffvxrZJQFRODZXP1326-61-18 14:05:00 Test Item Value Reference Range Interpretation Comments RBC (test code = RBC) 5.46 4.70-6.10 N [facility] CenterHuoprmsFVRSJVOAHN1042-78-82 14:05:00 Test Item Value Reference Range Interpretation Comments MPV (test code = MPV) 9.0 7.4-10.4 N [facility] CenterOrmvwezTKCTZBEKWZ4705-99-68 14:05:00 Test Item Value Reference Range Interpretation Comments Hgb (test code = Hgb) 17.5 14.0-18.0 N [facility] CenterKyrtgytHERCUQIQJG3907-21-43 14:05:00 Test Item Value Reference Range Interpretation Comments Hct (test code = Hct) 51.1 42.0-54.0 N [facility] CenterQjrfaewFBPEHFFAIX4728-70-76 14:05:00 Test Item Value Reference Range Interpretation Comments Bands (test code = 27.0 See_Comment H [Automat ed message] The Bands) system which ge nerated this result transmit praedep reference range : <=11.0. The reference r caitlin was not used to interpr et this result as maximus l/abnormal. [facility] CenterSdjkybnVPYLQCAZZU7844-17-16 14:05:00 Test Item Value Reference Range Interpretation Comments Lymphocytes (test code = Lymphocytes) 9.0 20.0-40.0 L [facility] CenterWxgvmkoWVSRJMYBJM8683-82-55 14:05:00 Test Item Value Reference Range Interpretation Comments Monocytes (test code = Monocytes) 16.0 2.0-12.0 H [facility] CenterJnxbbpoVUBEMWQZVM2235-29-00 14:05:00 Test Item Value Reference Range Interpretation Comments Eosinophils (test code = 1.0 See_Comment N [A utomated message] The Eosinophils) system which ge nerated this result tra nsmitted reference range : <=4.0. The reference r caitlin was not used to int erpret this result as normal/abnormal . [facility] CenterOlvkdxdXDYQAJVZCN1681-51-90 14:05:00 Test Item Value Reference Range Interpretation Comments Metamyelocytes (test code 4.0 See_Comment H [ Automated message] = Metamyelocytes) The system which generated this result transmitted ref erence range: <=1.0. T he reference range was not used to int erpret this result as normal/abnormal . [facility] CenterVfguxxkQBOWUMYOXX5928-40-57 14:05:00 Test Item Value Reference Range Interpretation Comments Atypical Lymphs (test code = Atypical 0.0 N Lymphs) [facility] CenterDdiugwbTWBRTAAAAS3960-00-87 14:05:00 Test Item Value Reference Range Interpretation Comments Tot Cell Ct (test code = Tot Cell Ct) 100 1 [facility] CenterHhkigymPWZKYQQCNK4587-60-66 14:05:00 Test Item Value Reference Range Interpretation Comments Large Plt (test code = Slight *ABN*(01/14/2012 A Large Plt) 08:05:00) [facility] CenterVgdkpqrZXDCQSZXOJ5824-07-42 14:05:00 Test Item Value Reference Range Interpretation Comments Eosinophils # (test code 0.1 See_Comment N [A utomated message] The = Eosinophils #) system whic h generated this result tra nsmitted reference range : <=0.5. The reference r caitlin was not used to int erpret this result as normal/abnormal . [facility] CenterXliwptvWPNTAWLOQW4434-25-67 14:05:00 Test Item Value Reference Range Interpretation Comments Monocytes # (test code 1.2 See_Comment H [Aut omated message] The = Monocytes #) system which generated this result tra nsmitted reference range : <=0.8. The reference r caitlin was not used to int erpret this result as normal/abnormal . [facility] CenterZkrqxdwFTGTYMFKRV7938-13-73 14:05:00 Test Item Value Reference Range Interpretation Comments Segs (test code = Segs) 43.0 45.0-75.0 L [facility] CenterBbcnkhuNCYJEXHXVS5249-42-90 14:05:00 Test Item Value Reference Range Interpretation Comments Lymphocytes # (test code = Lymphocytes 0.6 1.0-5.5 L #) [facility] CenterUpbzvesLTMMWKKGGI2845-00-11 14:05:00 Test Item Value Reference Range Interpretation Comments Segs-Bands # (test code = Segs-Bands #) 5.0 1.5-8.1 N [facility] CenterXzwgsnbGHWBRADFY3188-97-55 14:05:00 Test Item Value Reference Range Interpretation Comments Amylase Lvl (test code = Amylase Lvl) 13 25-115 L [facility] CenterYgnjranUPGACCZNG9301-49-79 14:05:00 Test Item Value Reference Range Interpretation Comments A/G Ratio (test code = A/G Ratio) 1.0 0.7-1.6 N [facility] CenterFkolobbAITEIRPWF6454-70-40 14:05:00 Test Item Value Reference Range Interpretation Comments AGAP (test code = AGAP) 17.8 10.0-20.0 N [facility] CenterJvleyicSFYVVCMLM2036-74-48 14:05:00 Test Item Value Reference Range Interpretation Comments Globulin (test code = Globulin) 4.3 2.0-4.0 H [facility] CenterVbkxmxaBLOAESAVM0832-89-12 14:05:00 Test Item Value Reference Range Interpretation Comments B/C Ratio (test code = B/C Ratio) 15 6-25 N [facility] CenterIcivdqiLLWZRAARQ1983-49-94 14:05:00 Test Item Value Reference Range Interpretation Comments eGFR (test code = eGFR) 65 [facility] CenterIbuduqiIRSQGUIJA5440-75-49 14:05:00 Test Item Value Reference Range Interpretation Comments Calcium Lvl (test code = Calcium Lvl) 9.3 8.5-10.5 N [facility] CenterJrumnxeVAJJNBZJK5117-31-16 14:05:00 Test Item Value Reference Range Interpretation Comments CO2 (test code = CO2) 23 24-32 L [facility] CenterGxkpbugMOMSZFOOR6667-70-55 14:05:00 Test Item Value Reference Range Interpretation Comments Chloride Lvl (test code = Chloride Lvl) 96 95-109 N [facility] CenterEdrmxhmFZBMMWEJZ8718-68-49 14:05:00 Test Item Value Reference Range Interpretation Comments Bili Total (test code = Bili Total) 1.6 0.2-1.3 H [facility] CenterUnacajyBBWSCSCPK8691-31-21 14:05:00 Test Item Value Reference Range Interpretation Comments AST (test code = AST) 22 See_Comment N [Auto mated message] The system which ge nerated this result transmit pradeep reference range : <=37. The reference range was not used to interpr et this result as maximus l/abnormal. [facility] CenterXgszueqURLAXBXRM5889-95-43 14:05:00 Test Item Value Reference Range Interpretation Comments ALT (test code = ALT) 47 See_Comment N [Auto mated message] The system which ge nerated this result transmit pradeep reference range : <=65. The reference range was not used to interpr et this result as maximus l/abnormal. [facility] CenterQmkulxaDISZBYLGH2435-90-58 14:05:00 Test Item Value Reference Range Interpretation Comments Albumin Lvl (test code = Albumin Lvl) 4.5 3.5-5.0 N [facility] CenterSddwnsiWZSYQHSGK4137-45-68 14:05:00 Test Item Value Reference Range Interpretation Comments Total Protein (test code = Total 8.8 6.4-8.4 H Protein) [facility] CenterYdhdpbkZTWGOFBFW3450-70-28 14:05:00 Test Item Value Reference Range Interpretation Comments Alk Phos (test code = Alk Phos) 81 39-136 N [facility] CenterQjozmtxLKTAMUNAZ9784-79-76 14:05:00 Test Item Value Reference Range Interpretation Comments BUN (test code = BUN) 19 7-22 N [facility] CenterLopemefTYFRQEMPC3117-12-22 14:05:00 Test Item Value Reference Range Interpretation Comments Creatinine Lvl (test code = Creatinine 1.3 0.5-1.4 N Lvl) [facility] CenterLnkwdsqNVFTSOIBR4145-28-89 14:05:00 Test Item Value Reference Range Interpretation Comments Potassium Lvl (test code = Potassium 3.8 3.5-5.1 N Lvl) [facility] CenterGkzrpwaWOBWHBQIO2126-86-83 14:05:00 Test Item Value Reference Range Interpretation Comments Sodium Lvl (test code = Sodium Lvl) 133 135-145 L [facility] CenterJicclasDCYBGGZNU1035-95-73 14:05:00 Test Item Value Reference Range Interpretation Comments Glucose Lvl (test code = Glucose Lvl) 123 70-99 H [facility] CenterQydktvpLKNKURGUJ7558-40-72 14:05:00 Test Item Value Reference Range Interpretation Comments Lipase Lvl (test code = Lipase Lvl) 38 73-393 L [facility] CenterHywitteERLTGYXMZR4306-22-13 14:05:00 Test Item Value Reference Range Interpretation Comments MCV (test code = MCV) 93.6 80.0-94.0 N [facility] CenterQiqkgdfLJBZUDZZPP5229-58-17 14:05:00 Test Item Value Reference Range Interpretation Comments MCH (test code = MCH) 32.0 pg 27.0-31.0 H [facility] CenterHqxxcdvVLTJBCVNIN5540-49-49 14:05:00 Test Item Value Reference Range Interpretation Comments MCHC (test code = MCHC) 34.2 32.0-36.0 N [facility] CenterYfcmxeeGKLZWVBWQG1376-20-35 14:05:00 Test Item Value Reference Range Interpretation Comments RDW (test code = RDW) 13.5 11.5-14.5 N [facility] CenterNpwapqfVLFLFJSGRS6272-36-28 14:05:00 Test Item Value Reference Range Interpretation Comments Platelet (test code = Platelet) 359 133-450 N [facility] CenterIypynndFQSBNKTOXP6902-30-56 14:05:00 Test Item Value Reference Range Interpretation Comments WBC (test code = WBC) 7.2 3.7-10.4 N [facility] CenterCjoxfprNJDAKWCHPM2007-38-78 14:05:00 Test Item Value Reference Range Interpretation Comments RBC (test code = RBC) 5.46 4.70-6.10 N [facility] CenterYlfhtzwIVUOTTOTVH0792-96-83 14:05:00 Test Item Value Reference Range Interpretation Comments MPV (test code = MPV) 9.0 7.4-10.4 N [facility] CenterDkbsncbAUVUJHPGYW8176-44-35 14:05:00 Test Item Value Reference Range Interpretation Comments Hgb (test code = Hgb) 17.5 14.0-18.0 N [facility] CenterQggegcnDUEEULAUVY2868-25-89 14:05:00 Test Item Value Reference Range Interpretation Comments Hct (test code = Hct) 51.1 42.0-54.0 N [facility] CenterCfksglvJUBATGIKPC7212-21-87 14:05:00 Test Item Value Reference Range Interpretation Comments Bands (test code = 27.0 See_Comment H [Automat ed message] The Bands) system which ge nerated this result transmit pradeep reference range : <=11.0. The reference r caitlin was not used to interpr et this result as maximus l/abnormal. [facility] CenterXpxmrwtKULAKKBPQX7744-42-33 14:05:00 Test Item Value Reference Range Interpretation Comments Lymphocytes (test code = Lymphocytes) 9.0 20.0-40.0 L [facility] CenterDhwjfajSSSIFBPMFP9907-46-71 14:05:00 Test Item Value Reference Range Interpretation Comments Monocytes (test code = Monocytes) 16.0 2.0-12.0 H [facility] CenterAkffqkcSOYKCWTREL2742-29-14 14:05:00 Test Item Value Reference Range Interpretation Comments Eosinophils (test code = 1.0 See_Comment N [A utomated message] The Eosinophils) system which ge nerated this result tra nsmitted reference range : <=4.0. The reference r caitlin was not used to int erpret this result as normal/abnormal . [facility] CenterFutemroSZRXYCXLOS7809-67-22 14:05:00 Test Item Value Reference Range Interpretation Comments Metamyelocytes (test code 4.0 See_Comment H [ Automated message] = Metamyelocytes) The system which generated this result transmitted ref erence range: <=1.0. T he reference range was not used to int erpret this result as normal/abnormal . [facility] CenterApbjexsXYUAGVQELU8721-87-77 14:05:00 Test Item Value Reference Range Interpretation Comments Atypical Lymphs (test code = Atypical 0.0 N Lymphs) [facility] CenterBsdkynsMMCSUFUJDM9702-63-18 14:05:00 Test Item Value Reference Range Interpretation Comments Tot Cell Ct (test code = Tot Cell Ct) 100 1 [facility] CenterHzpvphbXYMHLWKGUZ4426-52-47 14:05:00 Test Item Value Reference Range Interpretation Comments Large Plt (test code = Slight *ABN*(01/14/2012 A Large Plt) 08:05:00) [facility] CenterErrdmxtIJFXLNRUZD1342-47-38 14:05:00 Test Item Value Reference Range Interpretation Comments Eosinophils # (test code 0.1 See_Comment N [A utomated message] The = Eosinophils #) system ic h generated this result tra nsmitted reference range : <=0.5. The reference r caitlin was not used to int erpret this result as normal/abnormal . [facility] CenterQwrdoqbXPVKMMOAUT4667-01-88 14:05:00 Test Item Value Reference Range Interpretation Comments Monocytes # (test code 1.2 See_Comment H [Aut omated message] The = Monocytes #) system which generated this result tra nsmitted reference range : <=0.8. The reference r caitlin was not used to int erpret this result as normal/abnormal . [facility] CenterZubpzrsFIYGYBVGBJ4686-79-16 14:05:00 Test Item Value Reference Range Interpretation Comments Segs (test code = Segs) 43.0 45.0-75.0 L [facility] CenterCxuqfouNIJHZQVHEF7470-80-65 14:05:00 Test Item Value Reference Range Interpretation Comments Lymphocytes # (test code = Lymphocytes 0.6 1.0-5.5 L #) [facility] CenterPumkikfZMBIPKUMSL5792-50-08 14:05:00 Test Item Value Reference Range Interpretation Comments Segs-Bands # (test code = Segs-Bands #) 5.0 1.5-8.1 N [facility] CenterRvycefpKBRWWUAYC6647-88-28 14:05:00 Test Item Value Reference Range Interpretation Comments Amylase Lvl (test code = Amylase Lvl) 13 25-115 L [facility] CenterAkooajxTUCNYHHIX2138-15-56 14:05:00 Test Item Value Reference Range Interpretation Comments A/G Ratio (test code = A/G Ratio) 1.0 0.7-1.6 N [facility] CenterYkvmvejBVKBDURQX2039-65-48 14:05:00 Test Item Value Reference Range Interpretation Comments AGAP (test code = AGAP) 17.8 10.0-20.0 N [facility] CenterNwnpivyXBHYSPEBL5868-52-30 14:05:00 Test Item Value Reference Range Interpretation Comments Globulin (test code = Globulin) 4.3 2.0-4.0 H [facility] CenterZtlottuTWFUUPBIW8283-46-48 14:05:00 Test Item Value Reference Range Interpretation Comments B/C Ratio (test code = B/C Ratio) 15 6-25 N [facility] CenterBkcdtybPRUWSGLXV6845-87-78 14:05:00 Test Item Value Reference Range Interpretation Comments eGFR (test code = eGFR) 65 [facility] CenterVcvmlivYQQUDNTCW6261-51-35 14:05:00 Test Item Value Reference Range Interpretation Comments Calcium Lvl (test code = Calcium Lvl) 9.3 8.5-10.5 N [facility] CenterSkudafrAPIBLKSQE4358-16-35 14:05:00 Test Item Value Reference Range Interpretation Comments CO2 (test code = CO2) 23 24-32 L [facility] CenterKztxdyvNQVBZQGTR9818-90-12 14:05:00 Test Item Value Reference Range Interpretation Comments Chloride Lvl (test code = Chloride Lvl) 96 95-109 N [facility] CenterGwvdwfpLYRTUUIPL9684-87-13 14:05:00 Test Item Value Reference Range Interpretation Comments Bili Total (test code = Bili Total) 1.6 0.2-1.3 H [facility] CenterAxiujvnAGLSSISMH8092-78-84 14:05:00 Test Item Value Reference Range Interpretation Comments AST (test code = AST) 22 See_Comment N [Auto mated message] The system which ge nerated this result transmit pradeep reference range : <=37. The reference range was not used to interpr et this result as maximus l/abnormal. [facility] CenterWshadbpSXNXKNGYE2162-07-75 14:05:00 Test Item Value Reference Range Interpretation Comments ALT (test code = ALT) 47 See_Comment N [Auto mated message] The system which ge nerated this result transmit pradeep reference range : <=65. The reference range was not used to interpr et this result as maximus l/abnormal. [facility] CenterOoarawlWXPGKHYXX1552-36-46 14:05:00 Test Item Value Reference Range Interpretation Comments Albumin Lvl (test code = Albumin Lvl) 4.5 3.5-5.0 N [facility] CenterPfbsqpcHQEMPWEMO1509-08-43 14:05:00 Test Item Value Reference Range Interpretation Comments Total Protein (test code = Total 8.8 6.4-8.4 H Protein) [facility] CenterJxsoorlUVKAQZPST1978-78-27 14:05:00 Test Item Value Reference Range Interpretation Comments Alk Phos (test code = Alk Phos) 81 39-136 N [facility] CenterEfxfhdkRKIJZIEBK1024-38-64 14:05:00 Test Item Value Reference Range Interpretation Comments BUN (test code = BUN) 19 7-22 N [facility] CenterQkhxzolIFRJJXUAI0321-02-18 14:05:00 Test Item Value Reference Range Interpretation Comments Creatinine Lvl (test code = Creatinine 1.3 0.5-1.4 N Lvl) [facility] CenterQredrxyFUDAQRDID4140-70-25 14:05:00 Test Item Value Reference Range Interpretation Comments Potassium Lvl (test code = Potassium 3.8 3.5-5.1 N Lvl) [facility] CenterBvyecaqTVLYVNMVQ0602-98-95 14:05:00 Test Item Value Reference Range Interpretation Comments Sodium Lvl (test code = Sodium Lvl) 133 135-145 L [facility] CenterHybgqynVTCYFWWVZ8276-66-92 14:05:00 Test Item Value Reference Range Interpretation Comments Glucose Lvl (test code = Glucose Lvl) 123 70-99 H [facility] CenterYplaapzUWGKLFZWK9759-58-94 14:05:00 Test Item Value Reference Range Interpretation Comments Lipase Lvl (test code = Lipase Lvl) 38 73-393 L [facility] CenterHoewitgPVENIKCNAS1694-39-21 14:05:00 Test Item Value Reference Range Interpretation Comments MCV (test code = MCV) 93.6 80.0-94.0 N [facility] CenterUfjwmzaEFURJRDTBR6899-28-72 14:05:00 Test Item Value Reference Range Interpretation Comments MCH (test code = MCH) 32.0 pg 27.0-31.0 H [facility] CenterKgzfatgKGDBGDYRST3723-52-29 14:05:00 Test Item Value Reference Range Interpretation Comments MCHC (test code = MCHC) 34.2 32.0-36.0 N [facility] CenterDpmvienUKMSWLJCVN8283-36-88 14:05:00 Test Item Value Reference Range Interpretation Comments RDW (test code = RDW) 13.5 11.5-14.5 N [facility] CenterAbctwdaNCTKFTPCPD4932-05-68 14:05:00 Test Item Value Reference Range Interpretation Comments Platelet (test code = Platelet) 359 133-450 N [facility] CenterCpdtklnSUFARFYACF7502-58-31 14:05:00 Test Item Value Reference Range Interpretation Comments WBC (test code = WBC) 7.2 3.7-10.4 N [facility] CenterIwdqjerCPPUAKJHTB4852-89-56 14:05:00 Test Item Value Reference Range Interpretation Comments RBC (test code = RBC) 5.46 4.70-6.10 N [facility] CenterYdnfrvdDWFIKPRIPY5499-19-59 14:05:00 Test Item Value Reference Range Interpretation Comments MPV (test code = MPV) 9.0 7.4-10.4 N [facility] CenterPpiekvkXNOMFRWKTQ0155-01-01 14:05:00 Test Item Value Reference Range Interpretation Comments Hgb (test code = Hgb) 17.5 14.0-18.0 N [facility] CenterBoefdayTIFRIRYFTR5816-04-84 14:05:00 Test Item Value Reference Range Interpretation Comments Hct (test code = Hct) 51.1 42.0-54.0 N [facility] CenterRnuhbuzWMZODELGBE6257-67-74 14:05:00 Test Item Value Reference Range Interpretation Comments Bands (test code = 27.0 See_Comment H [Automat ed message] The Bands) system which ge nerated this result transmit pradeep reference range : <=11.0. The reference r caitlin was not used to interpr et this result as maximus l/abnormal. [facility] CenterDukvjqxVOHIPFNKVO4005-47-08 14:05:00 Test Item Value Reference Range Interpretation Comments Lymphocytes (test code = Lymphocytes) 9.0 20.0-40.0 L [facility] CenterLllalvjJMEFFGXDZF4902-37-50 14:05:00 Test Item Value Reference Range Interpretation Comments Monocytes (test code = Monocytes) 16.0 2.0-12.0 H [facility] CenterEbcksipRRRCPWOKOK5649-34-16 14:05:00 Test Item Value Reference Range Interpretation Comments Eosinophils (test code = 1.0 See_Comment N [A utomated message] The Eosinophils) system which ge nerated this result tra nsmitted reference range : <=4.0. The reference r caitlin was not used to int erpret this result as normal/abnormal . [facility] CenterYqehaosHLVYIHOMEJ3926-04-79 14:05:00 Test Item Value Reference Range Interpretation Comments Metamyelocytes (test code 4.0 See_Comment H [ Automated message] = Metamyelocytes) The system which generated this result transmitted ref erence range: <=1.0. T he reference range was not used to int erpret this result as normal/abnormal . [facility] CenterZshhbnuVCTIPXQXUL0565-83-07 14:05:00 Test Item Value Reference Range Interpretation Comments Atypical Lymphs (test code = Atypical 0.0 N Lymphs) [facility] CenterLjatbzeDPGOFSVBIV0391-94-53 14:05:00 Test Item Value Reference Range Interpretation Comments Tot Cell Ct (test code = Tot Cell Ct) 100 1 [facility] CenterEnjntqaUHZZMNFURH8862-14-89 14:05:00 Test Item Value Reference Range Interpretation Comments Large Plt (test code = Slight *ABN*(01/14/2012 A Large Plt) 08:05:00) [facility] CenterSmthmckXBGBDIVEAN2221-96-01 14:05:00 Test Item Value Reference Range Interpretation Comments Eosinophils # (test code 0.1 See_Comment N [A utomated message] The = Eosinophils #) system [facility] h generated this result tra nsmitted reference range : <=0.5. The reference r caitlin was not used to int erpret this result as normal/abnormal . [facility] CenterLdgjwzwONIWUINXIZ6845-23-74 14:05:00 Test Item Value Reference Range Interpretation Comments Monocytes # (test code 1.2 See_Comment H [Aut omated message] The = Monocytes #) system which generated this result tra nsmitted reference range : <=0.8. The reference r caitlin was not used to int erpret this result as normal/abnormal . [facility] CenterMcohkzjMEKURERNBT4591-51-10 14:05:00 Test Item Value Reference Range Interpretation Comments Segs (test code = Segs) 43.0 45.0-75.0 L [facility] CenterJylkzgaRSXROTNZEP2484-70-82 14:05:00 Test Item Value Reference Range Interpretation Comments Lymphocytes # (test code = Lymphocytes 0.6 1.0-5.5 L #) [facility] CenterIuxsllbOHCYSYWSAG3697-94-38 14:05:00 Test Item Value Reference Range Interpretation Comments Segs-Bands # (test code = Segs-Bands #) 5.0 1.5-8.1 N [facility]HdxiaxkREAPZCZLE5954-45-15 14:05:00 Test Item Value Reference Range Interpretation Comments Amylase Lvl (test code = Amylase Lvl) 13 25-115 L [facility] CenterLsmvrpwCSZRJVOVZ2178-55-27 14:05:00 Test Item Value Reference Range Interpretation Comments A/G Ratio (test code = A/G Ratio) 1.0 0.7-1.6 N [facility] CenterGucdiuhGEUUNAIYA5422-95-61 14:05:00 Test Item Value Reference Range Interpretation Comments AGAP (test code = AGAP) 17.8 10.0-20.0 N [facility] CenterMbxbgbcOZPNDDMKA5599-09-46 14:05:00 Test Item Value Reference Range Interpretation Comments Globulin (test code = Globulin) 4.3 2.0-4.0 H [facility] CenterVfvwdnyNLEIQKZQA9680-91-85 14:05:00 Test Item Value Reference Range Interpretation Comments B/C Ratio (test code = B/C Ratio) 15 6-25 N [facility] CenterLxnseesSUKXRVSJC3613-35-56 14:05:00 Test Item Value Reference Range Interpretation Comments eGFR (test code = eGFR) 65 [facility] CenterBtatqofXJBGHBABO3162-72-81 14:05:00 Test Item Value Reference Range Interpretation Comments Calcium Lvl (test code = Calcium Lvl) 9.3 8.5-10.5 N [facility] CenterLvwcxtsHSABAUJKV9012-25-10 14:05:00 Test Item Value Reference Range Interpretation Comments CO2 (test code = CO2) 23 24-32 L [facility] CenterLdgxupjKIXBGQGRS5590-10-85 14:05:00 Test Item Value Reference Range Interpretation Comments Chloride Lvl (test code = Chloride Lvl) 96 95-109 N [facility] CenterLlxonkeYJKOSBCEL4706-84-43 14:05:00 Test Item Value Reference Range Interpretation Comments Bili Total (test code = Bili Total) 1.6 0.2-1.3 H [facility] CenterXystyjeIERNKBOPW7490-16-23 14:05:00 Test Item Value Reference Range Interpretation Comments AST (test code = AST) 22 See_Comment N [Auto mated message] The system which ge nerated this result transmit pradeep reference range : <=37. The reference range was not used to interpr et this result as maximus l/abnormal. [facility] CenterEvuwarkJNVFIVZWQ4566-33-19 14:05:00 Test Item Value Reference Range Interpretation Comments ALT (test code = ALT) 47 See_Comment N [Auto mated message] The system which ge nerated this result transmit pradeep reference range : <=65. The reference range was not used to interpr et this result as maximus l/abnormal. [facility] CenterOfvbivdZPBWTZTFP3482-47-89 14:05:00 Test Item Value Reference Range Interpretation Comments Albumin Lvl (test code = Albumin Lvl) 4.5 3.5-5.0 N [facility] CenterCnxffryOUSLTUICL9323-67-05 14:05:00 Test Item Value Reference Range Interpretation Comments Total Protein (test code = Total 8.8 6.4-8.4 H Protein) [facility] CenterKptcldsLIDKHHNVX4009-53-61 14:05:00 Test Item Value Reference Range Interpretation Comments Alk Phos (test code = Alk Phos) 81 39-136 N [facility] CenterJjjoypvALQIKMDOA3526-07-31 14:05:00 Test Item Value Reference Range Interpretation Comments BUN (test code = BUN) 19 7-22 N [facility] CenterMfpmzqiWOVTGQTYQ5270-00-27 14:05:00 Test Item Value Reference Range Interpretation Comments Creatinine Lvl (test code = Creatinine 1.3 0.5-1.4 N Lvl) [facility] CenterTyqezutJSDBGCVKK2831-20-48 14:05:00 Test Item Value Reference Range Interpretation Comments Potassium Lvl (test code = Potassium 3.8 3.5-5.1 N Lvl) [facility] CenterEfltadjKLHJRCHTP2943-60-41 14:05:00 Test Item Value Reference Range Interpretation Comments Sodium Lvl (test code = Sodium Lvl) 133 135-145 L [facility] CenterHuckzspVAHKLFZAE3113-88-22 14:05:00 Test Item Value Reference Range Interpretation Comments Glucose Lvl (test code = Glucose Lvl) 123 70-99 H [facility] CenterIshggqeGZBIPRKLF4655-87-19 14:05:00 Test Item Value Reference Range Interpretation Comments Lipase Lvl (test code = Lipase Lvl) 38 73-393 L [facility]YqzoxtpQJRTSTHKKP0668-61-06 14:05:00 Test Item Value Reference Range Interpretation Comments MCV (test code = MCV) 93.6 80.0-94.0 N [facility] CenterKdpliydPZKPCIWURC7696-40-61 14:05:00 Test Item Value Reference Range Interpretation Comments MCH (test code = MCH) 32.0 pg 27.0-31.0 H [facility] CenterPnvvgxrDBDGIFCXFY4673-22-97 14:05:00 Test Item Value Reference Range Interpretation Comments MCHC (test code = MCHC) 34.2 32.0-36.0 N [facility] CenterJyzflvaTPNLZSLVTF7857-86-37 14:05:00 Test Item Value Reference Range Interpretation Comments RDW (test code = RDW) 13.5 11.5-14.5 N [facility] CenterKpsceqvFUXPJUSTOA7356-55-56 14:05:00 Test Item Value Reference Range Interpretation Comments Platelet (test code = Platelet) 359 133-450 N [facility] CenterRgbqsncDPUSCXHCKF8379-10-62 14:05:00 Test Item Value Reference Range Interpretation Comments WBC (test code = WBC) 7.2 3.7-10.4 N [facility] CenterSqipoabPZXMRSXRRC5460-06-22 14:05:00 Test Item Value Reference Range Interpretation Comments RBC (test code = RBC) 5.46 4.70-6.10 N [facility] CenterSrugncgZWCJKCJPQO5000-15-81 14:05:00 Test Item Value Reference Range Interpretation Comments MPV (test code = MPV) 9.0 7.4-10.4 N [facility] CenterEevayxfCAQTITSTQP7462-39-09 14:05:00 Test Item Value Reference Range Interpretation Comments Hgb (test code = Hgb) 17.5 14.0-18.0 N [facility] CenterRgcrfkdKAVUPZPXVC7093-20-17 14:05:00 Test Item Value Reference Range Interpretation Comments Hct (test code = Hct) 51.1 42.0-54.0 N [facility] CenterEhvqhjrSAVQVGLIAD4923-12-98 14:05:00 Test Item Value Reference Range Interpretation Comments Bands (test code = 27.0 See_Comment H [Automat ed message] The Bands) system which ge nerated this result transmit pradeep reference range : <=11.0. The reference r caitlin was not used to interpr et this result as maximus l/abnormal. [facility] CenterEbululyYHMZQAOZJD0243-11-54 14:05:00 Test Item Value Reference Range Interpretation Comments Lymphocytes (test code = Lymphocytes) 9.0 20.0-40.0 L [facility] CenterJbqrlrxHITPVDNJJH5671-64-89 14:05:00 Test Item Value Reference Range Interpretation Comments Monocytes (test code = Monocytes) 16.0 2.0-12.0 H [facility] CenterVmqasehUCCORDVYXP8983-49-78 14:05:00 Test Item Value Reference Range Interpretation Comments Eosinophils (test code = 1.0 See_Comment N [A utomated message] The Eosinophils) system which ge nerated this result tra nsmitted reference range : <=4.0. The reference r caitlin was not used to int erpret this result as normal/abnormal . [facility] CenterMnvpdoaCAZUINEVIF1226-11-36 14:05:00 Test Item Value Reference Range Interpretation Comments Metamyelocytes (test code 4.0 See_Comment H [ Automated message] = Metamyelocytes) The system which generated this result transmitted ref erence range: <=1.0. T he reference range was not used to int erpret this result as normal/abnormal . [facility] CenterJwlmirhSBRXVNRTIY7344-70-98 14:05:00 Test Item Value Reference Range Interpretation Comments Atypical Lymphs (test code = Atypical 0.0 N Lymphs) [facility] CenterAmucomlGGBFLAAZWF1782-22-78 14:05:00 Test Item Value Reference Range Interpretation Comments Tot Cell Ct (test code = Tot Cell Ct) 100 1 [facility] CenterHnxydelTJQKJVNCIA8272-71-86 14:05:00 Test Item Value Reference Range Interpretation Comments Large Plt (test code = Slight *ABN*(01/14/2012 A Large Plt) 08:05:00) [facility] CenterYcjavdcREVLVFLSUE8427-38-41 14:05:00 Test Item Value Reference Range Interpretation Comments Eosinophils # (test code 0.1 See_Comment N [A utomated message] The = Eosinophils #) system ic h generated this result tra nsmitted reference range : <=0.5. The reference r caitlin was not used to int erpret this result as normal/abnormal . [facility] CenterStcyobhVBANYSUNTF7105-54-42 14:05:00 Test Item Value Reference Range Interpretation Comments Monocytes # (test code 1.2 See_Comment H [Aut omated message] The = Monocytes #) system which generated this result tra nsmitted reference range : <=0.8. The reference r caitlin was not used to int erpret this result as normal/abnormal . [facility] CenterGyzcpsbETVVLSBEAU6402-31-51 14:05:00 Test Item Value Reference Range Interpretation Comments Segs (test code = Segs) 43.0 45.0-75.0 L [facility] CenterGmbwribLMNOORTSML5774-76-48 14:05:00 Test Item Value Reference Range Interpretation Comments Lymphocytes # (test code = Lymphocytes 0.6 1.0-5.5 L #) [facility] CenterNuijeqyYOBBEGMQTD8913-59-95 14:05:00 Test Item Value Reference Range Interpretation Comments Segs-Bands # (test code = Segs-Bands #) 5.0 1.5-8.1 N [facility] CenterUtkcuzaXQMRDQPPO6774-82-98 14:05:00 Test Item Value Reference Range Interpretation Comments Amylase Lvl (test code = Amylase Lvl) 13 25-115 L [facility] CenterRvsvlpiSRRUOIOIU9537-92-01 14:05:00 Test Item Value Reference Range Interpretation Comments A/G Ratio (test code = A/G Ratio) 1.0 0.7-1.6 N [facility] CenterXgjgngeAAERXDCLM0480-76-80 14:05:00 Test Item Value Reference Range Interpretation Comments AGAP (test code = AGAP) 17.8 10.0-20.0 N [facility] CenterVkimkgbCYCVHAQMO2032-04-73 14:05:00 Test Item Value Reference Range Interpretation Comments Globulin (test code = Globulin) 4.3 2.0-4.0 H [facility] CenterZuqugnfRTFHVGIQK9865-71-16 14:05:00 Test Item Value Reference Range Interpretation Comments B/C Ratio (test code = B/C Ratio) 15 6-25 N [facility] CenterEgvdmplOYDTTTPVJ4277-39-97 14:05:00 Test Item Value Reference Range Interpretation Comments eGFR (test code = eGFR) 65 [facility] CenterZfvqiksWKZQKFTWR8037-08-92 14:05:00 Test Item Value Reference Range Interpretation Comments Calcium Lvl (test code = Calcium Lvl) 9.3 8.5-10.5 N [facility] CenterProeusgBSGSGYHRZ0475-68-07 14:05:00 Test Item Value Reference Range Interpretation Comments CO2 (test code = CO2) 23 24-32 L [facility] CenterPrpznjeCGZSMDMYD6589-90-63 14:05:00 Test Item Value Reference Range Interpretation Comments Chloride Lvl (test code = Chloride Lvl) 96 95-109 N [facility] CenterJyvvxccYONINNTIB8515-92-88 14:05:00 Test Item Value Reference Range Interpretation Comments Bili Total (test code = Bili Total) 1.6 0.2-1.3 H [facility] CenterPqglzzxUBEDBTSCR3432-29-23 14:05:00 Test Item Value Reference Range Interpretation Comments AST (test code = AST) 22 See_Comment N [Auto mated message] The system which ge nerated this result transmit pradeep reference range : <=37. The reference range was not used to interpr et this result as maximus l/abnormal. [facility] CenterLqyshdpSWWSGLZMR3658-83-43 14:05:00 Test Item Value Reference Range Interpretation Comments ALT (test code = ALT) 47 See_Comment N [Auto mated message] The system which ge nerated this result transmit pradeep reference range : <=65. The reference range was not used to interpr et this result as maximus l/abnormal. [facility] CenterMipecrjTLYRHNPMX8220-06-70 14:05:00 Test Item Value Reference Range Interpretation Comments Albumin Lvl (test code = Albumin Lvl) 4.5 3.5-5.0 N [facility] CenterDfmkfhzZOOMVTSIH4910-75-66 14:05:00 Test Item Value Reference Range Interpretation Comments Total Protein (test code = Total 8.8 6.4-8.4 H Protein) [facility] CenterBynftuiXSKWNPWNE3879-39-32 14:05:00 Test Item Value Reference Range Interpretation Comments Alk Phos (test code = Alk Phos) 81 39-136 N [facility] CenterCzocmijEYWOOVMZC6438-95-66 14:05:00 Test Item Value Reference Range Interpretation Comments BUN (test code = BUN) 19 7-22 N [facility] CenterLfujogvVOUZPLQHG8026-36-35 14:05:00 Test Item Value Reference Range Interpretation Comments Creatinine Lvl (test code = Creatinine 1.3 0.5-1.4 N Lvl) [facility] CenterJwoyhqtGFJWIHEPZ9928-30-22 14:05:00 Test Item Value Reference Range Interpretation Comments Potassium Lvl (test code = Potassium 3.8 3.5-5.1 N Lvl) [facility] CenterZtemycyQUFJLBRXF3362-48-84 14:05:00 Test Item Value Reference Range Interpretation Comments Sodium Lvl (test code = Sodium Lvl) 133 135-145 L [facility] CenterJstdmsfKBAFCCDSB6870-62-11 14:05:00 Test Item Value Reference Range Interpretation Comments Glucose Lvl (test code = Glucose Lvl) 123 70-99 H [facility] CenterHllrpxqYZWPXQGML6162-58-89 14:05:00 Test Item Value Reference Range Interpretation Comments Lipase Lvl (test code = Lipase Lvl) 38 73-393 L [facility] CenterPviconkITCZEVTTFP2091-72-15 14:05:00 Test Item Value Reference Range Interpretation Comments MCV (test code = MCV) 93.6 80.0-94.0 N [facility] CenterLzeqexuDXHLLHOCQU8244-58-83 14:05:00 Test Item Value Reference Range Interpretation Comments MCH (test code = MCH) 32.0 pg 27.0-31.0 H [facility] CenterYadzmjiFADFTWASTB5209-41-96 14:05:00 Test Item Value Reference Range Interpretation Comments MCHC (test code = MCHC) 34.2 32.0-36.0 N [facility] CenterMfbjvpzDRGEWRWUJI7025-35-04 14:05:00 Test Item Value Reference Range Interpretation Comments RDW (test code = RDW) 13.5 11.5-14.5 N [facility] CenterGinintoOLIHFQZVUV5772-38-09 14:05:00 Test Item Value Reference Range Interpretation Comments Platelet (test code = Platelet) 359 133-450 N [facility] CenterFqpmjliENBGLHOQCR3939-88-41 14:05:00 Test Item Value Reference Range Interpretation Comments WBC (test code = WBC) 7.2 3.7-10.4 N [facility] CenterYjnkkwnADXKWRBUHW4676-69-64 14:05:00 Test Item Value Reference Range Interpretation Comments RBC (test code = RBC) 5.46 4.70-6.10 N [facility] CenterVqcvwxqWOVYQMBRPO0618-41-90 14:05:00 Test Item Value Reference Range Interpretation Comments MPV (test code = MPV) 9.0 7.4-10.4 N [facility] CenterMzeihwmBDYVBCPVIZ5748-30-43 14:05:00 Test Item Value Reference Range Interpretation Comments Hgb (test code = Hgb) 17.5 14.0-18.0 N [facility] CenterBnelscmSDOIPILLCO5282-29-69 14:05:00 Test Item Value Reference Range Interpretation Comments Hct (test code = Hct) 51.1 42.0-54.0 N [facility] CenterWrmgcxrMJLTKZYFEA3407-57-15 14:05:00 Test Item Value Reference Range Interpretation Comments Bands (test code = 27.0 See_Comment H [Automat ed message] The Bands) system which ge nerated this result transmit pradeep reference range : <=11.0. The reference r caitlin was not used to interpr et this result as maximus l/abnormal. [facility] CenterRetgwngFBPYMIBNYZ1038-50-78 14:05:00 Test Item Value Reference Range Interpretation Comments Lymphocytes (test code = Lymphocytes) 9.0 20.0-40.0 L [facility] CenterMeybmtmOVXKGQRIZO8765-08-98 14:05:00 Test Item Value Reference Range Interpretation Comments Monocytes (test code = Monocytes) 16.0 2.0-12.0 H [facility] CenterYxlgivyHUGQKPRUGG1333-81-71 14:05:00 Test Item Value Reference Range Interpretation Comments Eosinophils (test code = 1.0 See_Comment N [A utomated message] The Eosinophils) system which ge nerated this result tra nsmitted reference range : <=4.0. The reference r caitlin was not used to int erpret this result as normal/abnormal . [facility] CenterAljuhbbKYQYYAFNOW4174-91-19 14:05:00 Test Item Value Reference Range Interpretation Comments Metamyelocytes (test code 4.0 See_Comment H [ Automated message] = Metamyelocytes) The system which generated this result transmitted ref erence range: <=1.0. T he reference range was not used to int erpret this result as normal/abnormal . [facility] CenterOkalgcqFOQYXSFMII5994-19-45 14:05:00 Test Item Value Reference Range Interpretation Comments Atypical Lymphs (test code = Atypical 0.0 N Lymphs) [facility] CenterNfjaiowGIALMNWULF6755-54-22 14:05:00 Test Item Value Reference Range Interpretation Comments Tot Cell Ct (test code = Tot Cell Ct) 100 1 [facility] CenterMmgxpbiWFRCULSMKW8041-43-62 14:05:00 Test Item Value Reference Range Interpretation Comments Large Plt (test code = Slight *ABN*(01/14/2012 A Large Plt) 08:05:00) [facility] CenterEmcsmsqGJYYEIYKFS7580-89-57 14:05:00 Test Item Value Reference Range Interpretation Comments Eosinophils # (test code 0.1 See_Comment N [A utomated message] The = Eosinophils #) system [facility] generated this result tra nsmitted reference range : <=0.5. The reference r caitlin was not used to int erpret this result as normal/abnormal . [facility] CenterKcgpchiGIOFSKHNZI3920-92-91 14:05:00 Test Item Value Reference Range Interpretation Comments Monocytes # (test code 1.2 See_Comment H [Aut omated message] The = Monocytes #) system which generated this result tra nsmitted reference range : <=0.8. The reference r caitlin was not used to int erpret this result as normal/abnormal . [facility] CenterMgqjgctVCVDKBOBCM2084-95-36 14:05:00 Test Item Value Reference Range Interpretation Comments Segs (test code = Segs) 43.0 45.0-75.0 L [facility] CenterWuazldnLHOSPBMYHC9640-13-80 14:05:00 Test Item Value Reference Range Interpretation Comments Lymphocytes # (test code = Lymphocytes 0.6 1.0-5.5 L #) [facility] CenterWkvxerdXJYIEAXARC4604-97-09 14:05:00 Test Item Value Reference Range Interpretation Comments Segs-Bands # (test code = Segs-Bands #) 5.0 1.5-8.1 N [facility] CenterTvdxkxkZNEXYDREO9809-37-85 14:05:00 Test Item Value Reference Range Interpretation Comments Amylase Lvl (test code = Amylase Lvl) 13 25-115 L [facility] CenterUwkfugxLKDOCOREX8366-15-46 14:05:00 Test Item Value Reference Range Interpretation Comments A/G Ratio (test code = A/G Ratio) 1.0 0.7-1.6 N [facility] CenterZtrtbwxTOQMNVORC4117-69-91 14:05:00 Test Item Value Reference Range Interpretation Comments AGAP (test code = AGAP) 17.8 10.0-20.0 N [facility] CenterDajxxrtHIVFTJQLZ9322-68-79 14:05:00 Test Item Value Reference Range Interpretation Comments Globulin (test code = Globulin) 4.3 2.0-4.0 H [facility] CenterIbyynvoIKFCMVWKX7890-33-35 14:05:00 Test Item Value Reference Range Interpretation Comments B/C Ratio (test code = B/C Ratio) 15 6-25 N [facility] CenterHcpffehHEOZMJRDD6473-01-06 14:05:00 Test Item Value Reference Range Interpretation Comments eGFR (test code = eGFR) 65 [facility] CenterRavosesPLHYRRWBB5517-57-61 14:05:00 Test Item Value Reference Range Interpretation Comments Calcium Lvl (test code = Calcium Lvl) 9.3 8.5-10.5 N [facility] CenterEmiowuaHBWCMHHAD5569-15-33 14:05:00 Test Item Value Reference Range Interpretation Comments CO2 (test code = CO2) 23 24-32 L [facility] CenterTrojpcjXSATYQBRE6017-73-16 14:05:00 Test Item Value Reference Range Interpretation Comments Chloride Lvl (test code = Chloride Lvl) 96 95-109 N [facility] CenterSotlcpwFBUQFHUCD1339-07-48 14:05:00 Test Item Value Reference Range Interpretation Comments Bili Total (test code = Bili Total) 1.6 0.2-1.3 H [facility] CenterDduprhgFMUHBCTUT5732-15-30 14:05:00 Test Item Value Reference Range Interpretation Comments AST (test code = AST) 22 See_Comment N [Auto mated message] The system which ge nerated this result transmit pradeep reference range : <=37. The reference range was not used to interpr et this result as maximus l/abnormal. [facility] CenterHdraqiiIEOVTPAHA9795-49-60 14:05:00 Test Item Value Reference Range Interpretation Comments ALT (test code = ALT) 47 See_Comment N [Auto mated message] The system which ge nerated this result transmit pradeep reference range : <=65. The reference range was not used to interpr et this result as maximus l/abnormal. [facility] CenterYshlqeaZIGWQGCRU6544-21-86 14:05:00 Test Item Value Reference Range Interpretation Comments Albumin Lvl (test code = Albumin Lvl) 4.5 3.5-5.0 N [facility] CenterEvsuxigNAIBYUVFI4059-47-26 14:05:00 Test Item Value Reference Range Interpretation Comments Total Protein (test code = Total 8.8 6.4-8.4 H Protein) [facility] CenterZmwzhrlRSYZCKSBP0431-20-85 14:05:00 Test Item Value Reference Range Interpretation Comments Alk Phos (test code = Alk Phos) 81 39-136 N [facility] CenterPamitzqOQCLGQOYD3097-51-47 14:05:00 Test Item Value Reference Range Interpretation Comments BUN (test code = BUN) 19 7-22 N [facility] CenterGkqwyilZBXNTDGPX7964-98-16 14:05:00 Test Item Value Reference Range Interpretation Comments Creatinine Lvl (test code = Creatinine 1.3 0.5-1.4 N Lvl) [facility] CenterTzpwzelVNJNJZKKF1571-00-65 14:05:00 Test Item Value Reference Range Interpretation Comments Potassium Lvl (test code = Potassium 3.8 3.5-5.1 N Lvl) [facility] CenterIvfxjrqRHCQUEGCF2641-15-55 14:05:00 Test Item Value Reference Range Interpretation Comments Sodium Lvl (test code = Sodium Lvl) 133 135-145 L [facility] CenterTnlcjkjTDPIEBJBV0983-82-65 14:05:00 Test Item Value Reference Range Interpretation Comments Glucose Lvl (test code = Glucose Lvl) 123 70-99 H [facility] CenterFntgxgjMHOAQXSCX4245-36-70 14:05:00 Test Item Value Reference Range Interpretation Comments Lipase Lvl (test code = Lipase Lvl) 38 73-393 L [facility] CenterAijnqvfXICNYQJJYL7572-03-60 14:05:00 Test Item Value Reference Range Interpretation Comments MCV (test code = MCV) 93.6 80.0-94.0 N [facility] CenterJhtxzseHDAWKFYQDW9730-10-86 14:05:00 Test Item Value Reference Range Interpretation Comments MCH (test code = MCH) 32.0 pg 27.0-31.0 H [facility] CenterFdsytdgRWPQLVPSXL5975-81-98 14:05:00 Test Item Value Reference Range Interpretation Comments MCHC (test code = MCHC) 34.2 32.0-36.0 N [facility] CenterVjcjqcgQXPWJLSJAP4809-62-37 14:05:00 Test Item Value Reference Range Interpretation Comments RDW (test code = RDW) 13.5 11.5-14.5 N [facility] CenterUdlpehmDWKUISXLQH0814-71-14 14:05:00 Test Item Value Reference Range Interpretation Comments Platelet (test code = Platelet) 359 133-450 N [facility] CenterSwfazzaEIYWIKDZLT3512-93-84 14:05:00 Test Item Value Reference Range Interpretation Comments WBC (test code = WBC) 7.2 3.7-10.4 N [facility] CenterVnungexKRKJMRSJRU1160-69-59 14:05:00 Test Item Value Reference Range Interpretation Comments RBC (test code = RBC) 5.46 4.70-6.10 N [facility] CenterPlyidqtVNBLAUYVYB7644-95-75 14:05:00 Test Item Value Reference Range Interpretation Comments MPV (test code = MPV) 9.0 7.4-10.4 N [facility] CenterHrxswqpKBNJEKQFXP1015-51-99 14:05:00 Test Item Value Reference Range Interpretation Comments Hgb (test code = Hgb) 17.5 14.0-18.0 N [facility] CenterQwdtbsuBDCEOVHKTZ0226-57-74 14:05:00 Test Item Value Reference Range Interpretation Comments Hct (test code = Hct) 51.1 42.0-54.0 N [facility] CenterItvrvtoJOMWLNGEVZ4509-79-53 14:05:00 Test Item Value Reference Range Interpretation Comments Bands (test code = 27.0 See_Comment H [Automat ed message] The Bands) system which ge nerated this result transmit pradeep reference range : <=11.0. The reference r caitlin was not used to interpr et this result as maximus l/abnormal. [facility] CenterJjgzjmtCCIZLYUGKT5251-96-66 14:05:00 Test Item Value Reference Range Interpretation Comments Lymphocytes (test code = Lymphocytes) 9.0 20.0-40.0 L [facility] CenterUeoaypdEWLPICQFSG6878-15-64 14:05:00 Test Item Value Reference Range Interpretation Comments Monocytes (test code = Monocytes) 16.0 2.0-12.0 H [facility] CenterCsujlroUJTQWWNYPM6559-51-63 14:05:00 Test Item Value Reference Range Interpretation Comments Eosinophils (test code = 1.0 See_Comment N [A utomated message] The Eosinophils) system which ge nerated this result tra nsmitted reference range : <=4.0. The reference r caitlin was not used to int erpret this result as normal/abnormal . [facility] CenterMjczgddXQNJEQWQKB7918-99-78 14:05:00 Test Item Value Reference Range Interpretation Comments Metamyelocytes (test code 4.0 See_Comment H [ Automated message] = Metamyelocytes) The system which generated this result transmitted ref erence range: <=1.0. T he reference range was not used to int erpret this result as normal/abnormal . [facility] CenterEcskkcyCECUMTLKSK5408-34-95 14:05:00 Test Item Value Reference Range Interpretation Comments Atypical Lymphs (test code = Atypical 0.0 N Lymphs) [facility] CenterPtelphdENIGLHGBFZ4715-43-29 14:05:00 Test Item Value Reference Range Interpretation Comments Tot Cell Ct (test code = Tot Cell Ct) 100 1 [facility] CenterFbbfhigJKLLAXBCPJ6044-77-31 14:05:00 Test Item Value Reference Range Interpretation Comments Large Plt (test code = Slight *ABN*(01/14/2012 A Large Plt) 08:05:00) [facility] CenterDqhztrlPKHNILFQRS2036-76-64 14:05:00 Test Item Value Reference Range Interpretation Comments Eosinophils # (test code 0.1 See_Comment N [A utomated message] The = Eosinophils #) system whic h generated this result tra nsmitted reference range : <=0.5. The reference r caitlin was not used to int erpret this result as normal/abnormal . [facility] CenterGktgvueDBRUKCRMPM7747-26-38 14:05:00 Test Item Value Reference Range Interpretation Comments Monocytes # (test code 1.2 See_Comment H [Aut omated message] The = Monocytes #) system which generated this result tra nsmitted reference range : <=0.8. The reference r caitlin was not used to int erpret this result as normal/abnormal . [facility] CenterTksyssoXFPXGQCRJX1077-63-37 14:05:00 Test Item Value Reference Range Interpretation Comments Segs (test code = Segs) 43.0 45.0-75.0 L [facility] CenterDrzcbfjPZHMNUBLQZ0798-46-58 14:05:00 Test Item Value Reference Range Interpretation Comments Lymphocytes # (test code = Lymphocytes 0.6 1.0-5.5 L #) [facility] CenterZzmrahmNYVXLJJNES5420-80-72 14:05:00 Test Item Value Reference Range Interpretation Comments Segs-Bands # (test code = Segs-Bands #) 5.0 1.5-8.1 N [facility] CenterXjecqdzCZTOARTFD5581-65-61 14:05:00 Test Item Value Reference Range Interpretation Comments Amylase Lvl (test code = Amylase Lvl) 13 25-115 L [facility] CenterDbpdtgbIFCPAYNWH0413-99-83 14:05:00 Test Item Value Reference Range Interpretation Comments A/G Ratio (test code = A/G Ratio) 1.0 0.7-1.6 N [facility] CenterQjxsxgcZFONQCZRX0833-37-29 14:05:00 Test Item Value Reference Range Interpretation Comments Amylase Lvl (test code = Amylase Lvl) 13 25-115 L [facility] CenterMsmdzusVQWQRIUKI1615-52-83 14:05:00 Test Item Value Reference Range Interpretation Comments A/G Ratio (test code = A/G Ratio) 1.0 0.7-1.6 N [facility]JouwzfqKZHBNCCAW8056-51-02 14:05:00 Test Item Value Reference Range Interpretation Comments AGAP (test code = AGAP) 17.8 10.0-20.0 N [facility] CenterLljoyheTARJVWVXI5629-40-83 14:05:00 Test Item Value Reference Range Interpretation Comments AGAP (test code = AGAP) 17.8 10.0-20.0 N [facility] CenterRgyqjxqULSZKWYVW1611-55-07 14:05:00 Test Item Value Reference Range Interpretation Comments Globulin (test code = Globulin) 4.3 2.0-4.0 H [facility] CenterAwahrmbFZFWLZQHI7736-72-41 14:05:00 Test Item Value Reference Range Interpretation Comments B/C Ratio (test code = B/C Ratio) 15 6-25 N [facility] CenterAzfsheyBINGAIBDQ4312-07-39 14:05:00 Test Item Value Reference Range Interpretation Comments eGFR (test code = eGFR) 65 [facility] CenterWdamygwAFXBYLPKV0061-79-80 14:05:00 Test Item Value Reference Range Interpretation Comments Calcium Lvl (test code = Calcium Lvl) 9.3 8.5-10.5 N [facility] CenterNnkdzqvTVOCVZWFG8823-05-32 14:05:00 Test Item Value Reference Range Interpretation Comments CO2 (test code = CO2) 23 24-32 L [facility] CenterXtpppbjLTKZYWOEL6168-04-68 14:05:00 Test Item Value Reference Range Interpretation Comments Chloride Lvl (test code = Chloride Lvl) 96 95-109 N [facility] CenterBvdnylnCLOKUSUGK6700-04-20 14:05:00 Test Item Value Reference Range Interpretation Comments Bili Total (test code = Bili Total) 1.6 0.2-1.3 H [facility] CenterNtfyqnwKEEUMOTDT4403-52-86 14:05:00 Test Item Value Reference Range Interpretation Comments AST (test code = AST) 22 See_Comment N [Auto mated message] The system which ge nerated this result transmit pradeep reference range : <=37. The reference range was not used to interpr et this result as maximus l/abnormal. [facility] CenterVqblrvfVYVHJQMFB0246-46-87 14:05:00 Test Item Value Reference Range Interpretation Comments ALT (test code = ALT) 47 See_Comment N [Auto mated message] The system which ge nerated this result transmit pradeep reference range : <=65. The reference range was not used to interpr et this result as maximus l/abnormal. [facility] CenterVlductnQHTWWAYOR3991-23-62 14:05:00 Test Item Value Reference Range Interpretation Comments Globulin (test code = Globulin) 4.3 2.0-4.0 H [facility] CenterPkywrjyAIHTLEJKO5203-70-68 14:05:00 Test Item Value Reference Range Interpretation Comments Albumin Lvl (test code = Albumin Lvl) 4.5 3.5-5.0 N [facility] CenterDtavzfnGMLMKXWFL7562-66-88 14:05:00 Test Item Value Reference Range Interpretation Comments Total Protein (test code = Total 8.8 6.4-8.4 H Protein) [facility] CenterYiuipivEAEBLUXSG1120-13-34 14:05:00 Test Item Value Reference Range Interpretation Comments Alk Phos (test code = Alk Phos) 81 39-136 N [facility] CenterVzztjjfGIKKBRRJO0695-94-77 14:05:00 Test Item Value Reference Range Interpretation Comments BUN (test code = BUN) 19 7-22 N [facility] CenterXmybjrdGDWIBWTOG4170-66-03 14:05:00 Test Item Value Reference Range Interpretation Comments Creatinine Lvl (test code = Creatinine 1.3 0.5-1.4 N Lvl) [facility] CenterMgielegAQOQDQVZX9864-91-60 14:05:00 Test Item Value Reference Range Interpretation Comments Potassium Lvl (test code = Potassium 3.8 3.5-5.1 N Lvl) [facility] CenterAqtikpnBNZQFCNQX8985-79-42 14:05:00 Test Item Value Reference Range Interpretation Comments Sodium Lvl (test code = Sodium Lvl) 133 135-145 L [facility] CenterUudmivuDMYECJZCW5820-30-00 14:05:00 Test Item Value Reference Range Interpretation Comments Glucose Lvl (test code = Glucose Lvl) 123 70-99 H [facility] CenterDquhmczKDSHQFVPJ8593-29-27 14:05:00 Test Item Value Reference Range Interpretation Comments Lipase Lvl (test code = Lipase Lvl) 38 73-393 L [facility] CenterOonqelqKHVDSRCRUC2432-67-54 14:05:00 Test Item Value Reference Range Interpretation Comments MCV (test code = MCV) 93.6 80.0-94.0 N [facility] CenterJlppcyhPJQOYDSZH4208-72-34 14:05:00 Test Item Value Reference Range Interpretation Comments B/C Ratio (test code = B/C Ratio) 15 6-25 N [facility] CenterNlhkjmqCZRRRFJHZE8396-52-75 14:05:00 Test Item Value Reference Range Interpretation Comments MCH (test code = MCH) 32.0 pg 27.0-31.0 H [facility] CenterDqgxdxcNJJBEYKXAC3309-64-27 14:05:00 Test Item Value Reference Range Interpretation Comments MCHC (test code = MCHC) 34.2 32.0-36.0 N [facility] CenterSpttffoUURVQHBLDF2092-14-13 14:05:00 Test Item Value Reference Range Interpretation Comments RDW (test code = RDW) 13.5 11.5-14.5 N [facility] CenterIodrgixHXPPTGLWSX3625-57-61 14:05:00 Test Item Value Reference Range Interpretation Comments Platelet (test code = Platelet) 359 133-450 N [facility] CenterOtwsvnxDBLCPWGRZK3705-65-88 14:05:00 Test Item Value Reference Range Interpretation Comments WBC (test code = WBC) 7.2 3.7-10.4 N [facility] CenterFeylapfMSDULFNTLN5827-88-05 14:05:00 Test Item Value Reference Range Interpretation Comments RBC (test code = RBC) 5.46 4.70-6.10 N [facility] CenterJbypsuyNAUIUMVGYB2709-04-93 14:05:00 Test Item Value Reference Range Interpretation Comments MPV (test code = MPV) 9.0 7.4-10.4 N [facility] CenterVsgsixsAQLIZRDAHX4688-36-75 14:05:00 Test Item Value Reference Range Interpretation Comments Hgb (test code = Hgb) 17.5 14.0-18.0 N [facility] CenterZbydjvnGCGBMNEZQW5928-96-88 14:05:00 Test Item Value Reference Range Interpretation Comments Hct (test code = Hct) 51.1 42.0-54.0 N [facility] CenterGnclzxeJDQYQYMAYC1559-96-94 14:05:00 Test Item Value Reference Range Interpretation Comments Bands (test code = 27.0 See_Comment H [Automat ed message] The Bands) system which ge nerated this result transmit pradeep reference range : <=11.0. The reference r caitlin was not used to interpr et this result as maximus l/abnormal. [facility]WchyimnBKKNLITIX4174-50-90 14:05:00 Test Item Value Reference Range Interpretation Comments eGFR (test code = eGFR) 65 [facility] CenterErqbeziEKDRKRMOTA7914-54-94 14:05:00 Test Item Value Reference Range Interpretation Comments Lymphocytes (test code = Lymphocytes) 9.0 20.0-40.0 L [facility] CenterStcfvcrGPUXRWAMZY5132-14-70 14:05:00 Test Item Value Reference Range Interpretation Comments Monocytes (test code = Monocytes) 16.0 2.0-12.0 H [facility] CenterRvylpbxSNNKOLXUBY1234-72-27 14:05:00 Test Item Value Reference Range Interpretation Comments Eosinophils (test code = 1.0 See_Comment N [A utomated message] The Eosinophils) system which ge nerated this result tra nsmitted reference range : <=4.0. The reference r caitlin was not used to int erpret this result as normal/abnormal . [facility] CenterQfhqvyuPYSHKJQJDV5653-45-54 14:05:00 Test Item Value Reference Range Interpretation Comments Metamyelocytes (test code 4.0 See_Comment H [ Automated message] = Metamyelocytes) The system which generated this result transmitted ref erence range: <=1.0. T he reference range was not used to int erpret this result as normal/abnormal . [facility] CenterGsqnflmIKQBBKXRVZ4777-61-18 14:05:00 Test Item Value Reference Range Interpretation Comments Atypical Lymphs (test code = Atypical 0.0 N Lymphs) [facility] CenterWncqodrLIICFVXXIW7279-79-75 14:05:00 Test Item Value Reference Range Interpretation Comments Tot Cell Ct (test code = Tot Cell Ct) 100 1 [facility] CenterAbdyoppUHTAIMKIDG2975-01-52 14:05:00 Test Item Value Reference Range Interpretation Comments Large Plt (test code = Slight *ABN*(01/14/2012 A Large Plt) 08:05:00) [facility] CenterFhabzdsMMVINCVFST0155-42-45 14:05:00 Test Item Value Reference Range Interpretation Comments Eosinophils # (test code 0.1 See_Comment N [A utomated message] The = Eosinophils #) system whic h generated this result tra nsmitted reference range : <=0.5. The reference r caitlin was not used to int erpret this result as normal/abnormal . [facility] CenterZqacaioFXJVLTTTZI6151-37-47 14:05:00 Test Item Value Reference Range Interpretation Comments Monocytes # (test code 1.2 See_Comment H [Aut omated message] The = Monocytes #) system which generated this result tra nsmitted reference range : <=0.8. The reference r caitlin was not used to int erpret this result as normal/abnormal . [facility] CenterZulxpozFDDCTHDLSB8457-49-63 14:05:00 Test Item Value Reference Range Interpretation Comments Segs (test code = Segs) 43.0 45.0-75.0 L [facility] CenterWljyontIHAGGRKFN5743-90-15 14:05:00 Test Item Value Reference Range Interpretation Comments Calcium Lvl (test code = Calcium Lvl) 9.3 8.5-10.5 N [facility] CenterRyymtnmRHORPGYVTN0193-57-12 14:05:00 Test Item Value Reference Range Interpretation Comments Lymphocytes # (test code = Lymphocytes 0.6 1.0-5.5 L #) [facility] CenterJuudywdVFMDLROIWW3133-02-51 14:05:00 Test Item Value Reference Range Interpretation Comments Segs-Bands # (test code = Segs-Bands #) 5.0 1.5-8.1 N [facility] CenterNidjtwnGKHUBSFOO2033-05-02 14:05:00 Test Item Value Reference Range Interpretation Comments CO2 (test code = CO2) 23 24-32 L [facility] CenterOqktavyPUHXUBKDG9510-56-00 14:05:00 Test Item Value Reference Range Interpretation Comments Chloride Lvl (test code = Chloride Lvl) 96 95-109 N [facility] CenterEnpgjkeGUEVWGXXB4888-31-03 14:05:00 Test Item Value Reference Range Interpretation Comments Bili Total (test code = Bili Total) 1.6 0.2-1.3 H [facility] CenterKdfttyfOZFSKYEBS0700-06-43 14:05:00 Test Item Value Reference Range Interpretation Comments AST (test code = AST) 22 See_Comment N [Auto mated message] The system which ge nerated this result transmit pradeep reference range : <=37. The reference range was not used to interpr et this result as maximus l/abnormal. [facility] CenterBdhysxdMKSPEAVQP4911-65-68 14:05:00 Test Item Value Reference Range Interpretation Comments ALT (test code = ALT) 47 See_Comment N [Auto mated message] The system which ge nerated this result transmit pradeep reference range : <=65. The reference range was not used to interpr et this result as maximus l/abnormal. [facility] CenterLiwonnjCGLQCQDLB5725-84-79 14:05:00 Test Item Value Reference Range Interpretation Comments Albumin Lvl (test code = Albumin Lvl) 4.5 3.5-5.0 N [facility] CenterKasrayvFDLKGBMQO3509-92-03 14:05:00 Test Item Value Reference Range Interpretation Comments Total Protein (test code = Total 8.8 6.4-8.4 H Protein) [facility] CenterPamffhfDKEKHOYLH0499-71-47 14:05:00 Test Item Value Reference Range Interpretation Comments Alk Phos (test code = Alk Phos) 81 39-136 N [facility] CenterLktevaqAIXBEOXCI5303-96-64 14:05:00 Test Item Value Reference Range Interpretation Comments Amylase Lvl (test code = Amylase Lvl) 13 25-115 L [facility] CenterJuizquoJTNTTEKUI0948-67-07 14:05:00 Test Item Value Reference Range Interpretation Comments A/G Ratio (test code = A/G Ratio) 1.0 0.7-1.6 N [facility] CenterSxnfxyzWWWZPPNRN9430-44-02 14:05:00 Test Item Value Reference Range Interpretation Comments AGAP (test code = AGAP) 17.8 10.0-20.0 N [facility] CenterKkreaytFYSQVYKQB3009-84-54 14:05:00 Test Item Value Reference Range Interpretation Comments Globulin (test code = Globulin) 4.3 2.0-4.0 H [facility] CenterQryfshjIVQDPRTJO2114-04-51 14:05:00 Test Item Value Reference Range Interpretation Comments B/C Ratio (test code = B/C Ratio) 15 6-25 N [facility] CenterLuhyqjrRQDWFEHPR4615-71-07 14:05:00 Test Item Value Reference Range Interpretation Comments eGFR (test code = eGFR) 65 [facility] CenterTnxynbqEOWFOXAEW8342-86-87 14:05:00 Test Item Value Reference Range Interpretation Comments BUN (test code = BUN) 19 7-22 N [facility] CenterBtwkaelXPWJPAVMC4082-70-55 14:05:00 Test Item Value Reference Range Interpretation Comments Calcium Lvl (test code = Calcium Lvl) 9.3 8.5-10.5 N [facility] CenterNrdgqhiAEBUFXHPF5039-55-76 14:05:00 Test Item Value Reference Range Interpretation Comments CO2 (test code = CO2) 23 24-32 L [facility] CenterXkmxyanZBPIVJDIY2275-74-41 14:05:00 Test Item Value Reference Range Interpretation Comments Chloride Lvl (test code = Chloride Lvl) 96 95-109 N [facility] CenterYgnzpboJGFCOTNRO2480-23-91 14:05:00 Test Item Value Reference Range Interpretation Comments Bili Total (test code = Bili Total) 1.6 0.2-1.3 H [facility] CenterLmlnelwBZFJDLDVV6476-68-74 14:05:00 Test Item Value Reference Range Interpretation Comments AST (test code = AST) 22 See_Comment N [Auto mated message] The system which ge nerated this result transmit pradeep reference range : <=37. The reference range was not used to interpr et this result as maximus l/abnormal. [facility] CenterUilcaclBWJICVRUE8508-24-48 14:05:00 Test Item Value Reference Range Interpretation Comments ALT (test code = ALT) 47 See_Comment N [Auto mated message] The system which ge nerated this result transmit pradeep reference range : <=65. The reference range was not used to interpr et this result as maximus l/abnormal. [facility] CenterWihmnofCIBHTMNIU3504-34-72 14:05:00 Test Item Value Reference Range Interpretation Comments Albumin Lvl (test code = Albumin Lvl) 4.5 3.5-5.0 N [facility] CenterOkvuwfhNVCLPTXBH1636-13-95 14:05:00 Test Item Value Reference Range Interpretation Comments Total Protein (test code = Total 8.8 6.4-8.4 H Protein) [facility] CenterVdiarziZOSXTZLGD8034-58-74 14:05:00 Test Item Value Reference Range Interpretation Comments Alk Phos (test code = Alk Phos) 81 39-136 N [facility] CenterWkvmebhBKDERQDKD9284-10-06 14:05:00 Test Item Value Reference Range Interpretation Comments BUN (test code = BUN) 19 7-22 N [facility] CenterGnctoqjMVLPLGYHR4672-97-40 14:05:00 Test Item Value Reference Range Interpretation Comments Creatinine Lvl (test code = Creatinine 1.3 0.5-1.4 N Lvl) [facility] CenterJjfbbzzQVOSNMEQX8376-65-52 14:05:00 Test Item Value Reference Range Interpretation Comments Creatinine Lvl (test code = Creatinine 1.3 0.5-1.4 N Lvl) [facility] CenterUovbewsIVPJORAPN2520-80-21 14:05:00 Test Item Value Reference Range Interpretation Comments Potassium Lvl (test code = Potassium 3.8 3.5-5.1 N Lvl) [facility] CenterHcsodniMHASJKTZX6135-08-02 14:05:00 Test Item Value Reference Range Interpretation Comments Sodium Lvl (test code = Sodium Lvl) 133 135-145 L [facility] CenterAuayolbQCDFQJOXY8168-16-22 14:05:00 Test Item Value Reference Range Interpretation Comments Glucose Lvl (test code = Glucose Lvl) 123 70-99 H [facility] CenterHevbyszOARXYRYKY6150-06-69 14:05:00 Test Item Value Reference Range Interpretation Comments Lipase Lvl (test code = Lipase Lvl) 38 73-393 L [facility] CenterLurpqsvOPQUPWPLFW8483-69-72 14:05:00 Test Item Value Reference Range Interpretation Comments MCV (test code = MCV) 93.6 80.0-94.0 N [facility] CenterWdeilavAZBITGSVNE7241-52-87 14:05:00 Test Item Value Reference Range Interpretation Comments MCH (test code = MCH) 32.0 pg 27.0-31.0 H [facility] CenterNetqvgoFWYLAYINUW4307-33-94 14:05:00 Test Item Value Reference Range Interpretation Comments MCHC (test code = MCHC) 34.2 32.0-36.0 N [facility] CenterPfngcwlVIXKCNWOYA7609-89-69 14:05:00 Test Item Value Reference Range Interpretation Comments RDW (test code = RDW) 13.5 11.5-14.5 N [facility] CenterPaphjkxPYXFXHARRZ4753-17-81 14:05:00 Test Item Value Reference Range Interpretation Comments Platelet (test code = Platelet) 359 133-450 N [facility] CenterPhqnadiVBWQTBRIE4389-75-42 14:05:00 Test Item Value Reference Range Interpretation Comments Potassium Lvl (test code = Potassium 3.8 3.5-5.1 N Lvl) [facility] CenterOjdvqehWWNUSPXCDR2071-66-66 14:05:00 Test Item Value Reference Range Interpretation Comments WBC (test code = WBC) 7.2 3.7-10.4 N [facility] CenterPzzjybtXBSUQPZIUD8818-60-97 14:05:00 Test Item Value Reference Range Interpretation Comments RBC (test code = RBC) 5.46 4.70-6.10 N [facility] CenterKpsehytHYZYOQNWRZ0140-53-63 14:05:00 Test Item Value Reference Range Interpretation Comments MPV (test code = MPV) 9.0 7.4-10.4 N [facility] CenterNtivwfkTSUJXUAFTC7157-82-10 14:05:00 Test Item Value Reference Range Interpretation Comments Hgb (test code = Hgb) 17.5 14.0-18.0 N [facility] CenterBesxvuePSFCZJBSNY8305-62-50 14:05:00 Test Item Value Reference Range Interpretation Comments Hct (test code = Hct) 51.1 42.0-54.0 N [facility] CenterQdlkclfPVPQARREQO5185-28-16 14:05:00 Test Item Value Reference Range Interpretation Comments Bands (test code = 27.0 See_Comment H [Automat ed message] The Bands) system which ge nerated this result transmit pradeep reference range : <=11.0. The reference r caitlin was not used to interpr et this result as maximus l/abnormal. [facility] CenterMclgprbMVYWOFIJEB5912-79-72 14:05:00 Test Item Value Reference Range Interpretation Comments Lymphocytes (test code = Lymphocytes) 9.0 20.0-40.0 L [facility] CenterBcwonurBKGGYMLSTZ4891-68-64 14:05:00 Test Item Value Reference Range Interpretation Comments Monocytes (test code = Monocytes) 16.0 2.0-12.0 H [facility] CenterHpgjeziZTAQWYZNHH0329-83-01 14:05:00 Test Item Value Reference Range Interpretation Comments Eosinophils (test code = 1.0 See_Comment N [A utomated message] The Eosinophils) system which ge nerated this result tra nsmitted reference range : <=4.0. The reference r caitlin was not used to int erpret this result as normal/abnormal . [facility] CenterGyucsfrBYZYDFITWA9011-73-27 14:05:00 Test Item Value Reference Range Interpretation Comments Metamyelocytes (test code 4.0 See_Comment H [ Automated message] = Metamyelocytes) The system which generated this result transmitted ref erence range: <=1.0. T he reference range was not used to int erpret this result as normal/abnormal . [facility]mod[facility]LEGGHIRRI5374-72-11 14:05:00 Test Item Value Reference Range Interpretation Comments Sodium Lvl (test code = Sodium Lvl) 133 135-145 L [facility] CenterWtkcvvyCPSQUYZUDF4604-38-85 14:05:00 Test Item Value Reference Range Interpretation Comments Atypical Lymphs (test code = Atypical 0.0 N Lymphs) [facility] CenterVlqtegiKUQKXQLKDO8008-68-91 14:05:00 Test Item Value Reference Range Interpretation Comments Tot Cell Ct (test code = Tot Cell Ct) 100 1 [facility] CenterQhhibnaROKUTYQMLV7009-35-27 14:05:00 Test Item Value Reference Range Interpretation Comments Large Plt (test code = Slight *ABN*(01/14/2012 A Large Plt) 08:05:00) [facility] CenterIkhksxuFYAUXYWRKE7429-37-99 14:05:00 Test Item Value Reference Range Interpretation Comments Eosinophils # (test code 0.1 See_Comment N [A utomated message] The = Eosinophils #) system whic h generated this result tra nsmitted reference range : <=0.5. The reference r caitlin was not used to int erpret this result as normal/abnormal . [facility] CenterDlofdlxEAZIWYZDYX9724-40-47 14:05:00 Test Item Value Reference Range Interpretation Comments Monocytes # (test code 1.2 See_Comment H [Aut omated message] The = Monocytes #) system which generated this result tra nsmitted reference range : <=0.8. The reference r caitlin was not used to int erpret this result as normal/abnormal . [facility] CenterKjaqhopEFUTLBOIFC5112-66-86 14:05:00 Test Item Value Reference Range Interpretation Comments Segs (test code = Segs) 43.0 45.0-75.0 L [facility] CenterPrpbffoXMZRLMDAHE4138-97-07 14:05:00 Test Item Value Reference Range Interpretation Comments Lymphocytes # (test code = Lymphocytes 0.6 1.0-5.5 L #) [facility] CenterGnpbzawZDCJXXLUCT4217-98-35 14:05:00 Test Item Value Reference Range Interpretation Comments Segs-Bands # (test code = Segs-Bands #) 5.0 1.5-8.1 N [facility] CenterMukunhrOUTJPKZWM5478-23-97 14:05:00 Test Item Value Reference Range Interpretation Comments Glucose Lvl (test code = Glucose Lvl) 123 70-99 H [facility] CenterLhhtsbeSNZZDRPXC3716-15-85 14:05:00 Test Item Value Reference Range Interpretation Comments Lipase Lvl (test code = Lipase Lvl) 38 73-393 L [facility] CenterZquvxhkYUBMFLCYPW4807-82-73 14:05:00 Test Item Value Reference Range Interpretation Comments MCV (test code = MCV) 93.6 80.0-94.0 N [facility] CenterFjdupnqJNMCMXYMRU2797-86-79 14:05:00 Test Item Value Reference Range Interpretation Comments MCH (test code = MCH) 32.0 pg 27.0-31.0 H [facility] CenterCqphbwyQVLRKIONUT4071-62-54 14:05:00 Test Item Value Reference Range Interpretation Comments MCHC (test code = MCHC) 34.2 32.0-36.0 N [facility] CenterJtfunzfSLBADFFQRH6016-38-68 14:05:00 Test Item Value Reference Range Interpretation Comments RDW (test code = RDW) 13.5 11.5-14.5 N [facility] CenterWyfvnmvLSAFKDPTXE5680-39-96 14:05:00 Test Item Value Reference Range Interpretation Comments Platelet (test code = Platelet) 359 133-450 N [facility] CenterQbnvauuCISXUVSIQW1161-35-92 14:05:00 Test Item Value Reference Range Interpretation Comments WBC (test code = WBC) 7.2 3.7-10.4 N [facility] CenterDjolwwhZRTTJUWDLS1240-09-02 14:05:00 Test Item Value Reference Range Interpretation Comments RBC (test code = RBC) 5.46 4.70-6.10 N [facility] CenterEckxlwbJHRUBYNXIU8844-07-79 14:05:00 Test Item Value Reference Range Interpretation Comments MPV (test code = MPV) 9.0 7.4-10.4 N [facility] CenterLzkqychFHCVWDYAYZ1678-56-81 14:05:00 Test Item Value Reference Range Interpretation Comments Hgb (test code = Hgb) 17.5 14.0-18.0 N [facility] CenterJkpnemcJZGKJSLEOC0596-85-96 14:05:00 Test Item Value Reference Range Interpretation Comments Hct (test code = Hct) 51.1 42.0-54.0 N [facility] CenterJhwfskuQUXXPYMTTZ3499-85-08 14:05:00 Test Item Value Reference Range Interpretation Comments Bands (test code = 27.0 See_Comment H [Automat ed message] The Bands) system which ge nerated this result transmit pradeep reference range : <=11.0. The reference r caitlin was not used to interpr et this result as maximus l/abnormal. [facility] CenterMppprfoEYGQCUUUYW7450-50-85 14:05:00 Test Item Value Reference Range Interpretation Comments Lymphocytes (test code = Lymphocytes) 9.0 20.0-40.0 L [facility] CenterHtjfjkwBEDABIRDFL8036-82-17 14:05:00 Test Item Value Reference Range Interpretation Comments Monocytes (test code = Monocytes) 16.0 2.0-12.0 H [facility] CenterXhbugctKIEUQPNQJA3768-57-25 14:05:00 Test Item Value Reference Range Interpretation Comments Eosinophils (test code = 1.0 See_Comment N [A utomated message] The Eosinophils) system which ge nerated this result tra nsmitted reference range : <=4.0. The reference r caitlin was not used to int erpret this result as normal/abnormal . [facility] CenterAytsrpoLKLFPGQZYB4410-26-46 14:05:00 Test Item Value Reference Range Interpretation Comments Metamyelocytes (test code 4.0 See_Comment H [ Automated message] = Metamyelocytes) The system which generated this result transmitted ref erence range: <=1.0. T he reference range was not used to int erpret this result as normal/abnormal . [facility] CenterWahftjhFURJQVPATI2595-54-73 14:05:00 Test Item Value Reference Range Interpretation Comments Atypical Lymphs (test code = Atypical 0.0 N Lymphs) [facility] CenterErnoihyJAEFUYECQK4806-91-49 14:05:00 Test Item Value Reference Range Interpretation Comments Tot Cell Ct (test code = Tot Cell Ct) 100 1 [facility] CenterRdxyvriQDORYVBQZT2668-82-09 14:05:00 Test Item Value Reference Range Interpretation Comments Large Plt (test code = Slight *ABN*(01/14/2012 A Large Plt) 08:05:00) [facility] CenterEnvxcrqXNOJSZSLPL7911-15-59 14:05:00 Test Item Value Reference Range Interpretation Comments Eosinophils # (test code 0.1 See_Comment N [A utomated message] The = Eosinophils #) system wh h generated this result tra nsmitted reference range : <=0.5. The reference r caitlin was not used to int erpret this result as normal/abnormal . [facility] CenterPpdqdegVVFRZTMYCI8187-82-25 14:05:00 Test Item Value Reference Range Interpretation Comments Monocytes # (test code 1.2 See_Comment H [Aut omated message] The = Monocytes #) system which generated this result tra nsmitted reference range : <=0.8. The reference r caitlin was not used to int erpret this result as normal/abnormal . [facility] CenterHphptbcXUNICHBSUP3689-23-39 14:05:00 Test Item Value Reference Range Interpretation Comments Segs (test code = Segs) 43.0 45.0-75.0 L [facility] CenterFvemldiQEUIRMJEDT2243-42-01 14:05:00 Test Item Value Reference Range Interpretation Comments Lymphocytes # (test code = Lymphocytes 0.6 1.0-5.5 L #) [facility] CenterBvgprwqKNNZOVILMN2866-72-47 14:05:00 Test Item Value Reference Range Interpretation Comments Segs-Bands # (test code = Segs-Bands #) 5.0 1.5-8.1 N [facility] CenterQjstvyxMFHOUJEVP4686-35-35 14:05:00 Test Item Value Reference Range Interpretation Comments Amylase Lvl (test code = Amylase Lvl) 13 25-115 L [facility] CenterWwxzblyHEWFMTZWF1208-98-76 14:05:00 Test Item Value Reference Range Interpretation Comments A/G Ratio (test code = A/G Ratio) 1.0 0.7-1.6 N [facility] CenterJakxldiMBMLCGOGH7123-75-70 14:05:00 Test Item Value Reference Range Interpretation Comments AGAP (test code = AGAP) 17.8 10.0-20.0 N [facility] CenterQoqtvuhEQWUAFASB5373-78-93 14:05:00 Test Item Value Reference Range Interpretation Comments Globulin (test code = Globulin) 4.3 2.0-4.0 H [facility] CenterTttnyfyPUFJDLKWK6186-84-84 14:05:00 Test Item Value Reference Range Interpretation Comments B/C Ratio (test code = B/C Ratio) 15 6-25 N [facility] CenterMtittbbPJVQIRXME2114-90-79 14:05:00 Test Item Value Reference Range Interpretation Comments eGFR (test code = eGFR) 65 [facility] CenterSbqlduuGULSKJRGE4004-41-42 14:05:00 Test Item Value Reference Range Interpretation Comments Calcium Lvl (test code = Calcium Lvl) 9.3 8.5-10.5 N [facility] CenterFzuadhkQRIZNYYVL4851-30-74 14:05:00 Test Item Value Reference Range Interpretation Comments CO2 (test code = CO2) 23 24-32 L [facility] CenterPozienkGXNDLYKBX4127-03-89 14:05:00 Test Item Value Reference Range Interpretation Comments Chloride Lvl (test code = Chloride Lvl) 96 95-109 N [facility] CenterTgrpkysCZSHEQFZX6713-94-48 14:05:00 Test Item Value Reference Range Interpretation Comments Bili Total (test code = Bili Total) 1.6 0.2-1.3 H [facility] CenterOavjwsbHNBNLHZLK0503-16-78 14:05:00 Test Item Value Reference Range Interpretation Comments AST (test code = AST) 22 See_Comment N [Auto mated message] The system which ge nerated this result transmit pradeep reference range : <=37. The reference range was not used to interpr et this result as maximus l/abnormal. [facility] CenterJkdqhnvHEZXULCTM2295-76-81 14:05:00 Test Item Value Reference Range Interpretation Comments ALT (test code = ALT) 47 See_Comment N [Auto mated message] The system which ge nerated this result transmit pradeep reference range : <=65. The reference range was not used to interpr et this result as maximus l/abnormal. [facility] CenterRcqenkkGMYWGXUMC8701-26-64 14:05:00 Test Item Value Reference Range Interpretation Comments Albumin Lvl (test code = Albumin Lvl) 4.5 3.5-5.0 N [facility] CenterZiokydrDNOJKPOST6467-41-71 14:05:00 Test Item Value Reference Range Interpretation Comments Total Protein (test code = Total 8.8 6.4-8.4 H Protein) [facility] CenterFypzrmqFHEAVLSFA3079-52-69 14:05:00 Test Item Value Reference Range Interpretation Comments Alk Phos (test code = Alk Phos) 81 39-136 N [facility] CenterCclsjwgEDEULVXUA4034-84-79 14:05:00 Test Item Value Reference Range Interpretation Comments BUN (test code = BUN) 19 7-22 N [facility] CenterVujzfhdPUUPIYPOI2518-87-14 14:05:00 Test Item Value Reference Range Interpretation Comments Creatinine Lvl (test code = Creatinine 1.3 0.5-1.4 N Lvl) [facility] CenterBqpclcsUVMGGKMLI3314-20-52 14:05:00 Test Item Value Reference Range Interpretation Comments Potassium Lvl (test code = Potassium 3.8 3.5-5.1 N Lvl) [facility] CenterQmaiartSEIQTGINJ6173-60-07 14:05:00 Test Item Value Reference Range Interpretation Comments Sodium Lvl (test code = Sodium Lvl) 133 135-145 L [facility] CenterYgdecjzLCHUZTJUW2278-90-30 14:05:00 Test Item Value Reference Range Interpretation Comments Glucose Lvl (test code = Glucose Lvl) 123 70-99 H [facility] CenterPosyzbtBQHWEWCVY5135-68-65 14:05:00 Test Item Value Reference Range Interpretation Comments Lipase Lvl (test code = Lipase Lvl) 38 73-393 L [facility] CenterKuwmyohXYURGEYWXY3300-07-28 14:05:00 Test Item Value Reference Range Interpretation Comments MCV (test code = MCV) 93.6 80.0-94.0 N [facility] CenterSgltfbsTJFAGYCQDA1478-00-96 14:05:00 Test Item Value Reference Range Interpretation Comments MCH (test code = MCH) 32.0 pg 27.0-31.0 H [facility] CenterGuqvnnvEIPNGWKNTX9298-07-36 14:05:00 Test Item Value Reference Range Interpretation Comments MCHC (test code = MCHC) 34.2 32.0-36.0 N [facility] CenterBcegboiNTUDOWQOAH7795-70-65 14:05:00 Test Item Value Reference Range Interpretation Comments RDW (test code = RDW) 13.5 11.5-14.5 N [facility] CenterMsumrskNFQLQYSMSP4274-86-57 14:05:00 Test Item Value Reference Range Interpretation Comments Platelet (test code = Platelet) 359 133-450 N [facility] CenterMlbeiovRPNKAHSDAV4516-43-32 14:05:00 Test Item Value Reference Range Interpretation Comments WBC (test code = WBC) 7.2 3.7-10.4 N [facility] CenterOgchdpnNMTBLTUONY5215-43-79 14:05:00 Test Item Value Reference Range Interpretation Comments RBC (test code = RBC) 5.46 4.70-6.10 N [facility] CenterUqrgwgbKDGEDQKDEM8440-94-63 14:05:00 Test Item Value Reference Range Interpretation Comments MPV (test code = MPV) 9.0 7.4-10.4 N [facility] CenterUrhvddeZPIFOTDNAX3187-41-66 14:05:00 Test Item Value Reference Range Interpretation Comments Hgb (test code = Hgb) 17.5 14.0-18.0 N [facility] CenterLselplsNJZLWJLOJD3859-09-15 14:05:00 Test Item Value Reference Range Interpretation Comments Hct (test code = Hct) 51.1 42.0-54.0 N [facility] CenterGfjeacdEHODHNBAEI3375-59-84 14:05:00 Test Item Value Reference Range Interpretation Comments Bands (test code = 27.0 See_Comment H [Automat ed message] The Bands) system which ge nerated this result transmit pradeep reference range : <=11.0. The reference r caitlin was not used to interpr et this result as maximus l/abnormal. [facility] CenterOdxxnbdFKIOTHJURK0831-82-74 14:05:00 Test Item Value Reference Range Interpretation Comments Lymphocytes (test code = Lymphocytes) 9.0 20.0-40.0 L [facility] CenterLhsjqtsAVFXTCVEHV4108-63-45 14:05:00 Test Item Value Reference Range Interpretation Comments Monocytes (test code = Monocytes) 16.0 2.0-12.0 H [facility] CenterTjgwqaoJNBIZDYVOR6336-49-86 14:05:00 Test Item Value Reference Range Interpretation Comments Eosinophils (test code = 1.0 See_Comment N [A utomated message] The Eosinophils) system which nerated this result tra nsmitted reference range : <=4.0. The reference r caitlin was not used to int erpret this result as normal/abnormal . [facility] CenterVdkujjnPOFXWILRVX6866-16-87 14:05:00 Test Item Value Reference Range Interpretation Comments Metamyelocytes (test code 4.0 See_Comment H [ Automated message] = Metamyelocytes) The system which generated this result transmitted ref erence range: <=1.0. T he reference range was not used to int erpret this result as normal/abnormal . [facility] CenterIfpdbcsWEVMDUHSXQ8234-90-78 14:05:00 Test Item Value Reference Range Interpretation Comments Atypical Lymphs (test code = Atypical 0.0 N Lymphs) [facility] CenterMrjqhyuNJUJDUZQPH6810-66-96 14:05:00 Test Item Value Reference Range Interpretation Comments Tot Cell Ct (test code = Tot Cell Ct) 100 1 [facility] CenterGejqyxoXFLAZYPYNC7738-70-01 14:05:00 Test Item Value Reference Range Interpretation Comments Large Plt (test code = Slight *ABN*(01/14/2012 A Large Plt) 08:05:00) [facility] CenterDfvbfmrWFITZBSYEG5015-55-42 14:05:00 Test Item Value Reference Range Interpretation Comments Eosinophils # (test code 0.1 See_Comment N [A utomated message] The = Eosinophils #) system [facility] generated this result tra nsmitted reference range : <=0.5. The reference r caitlin was not used to int erpret this result as normal/abnormal . [facility] CenterSothpmvGOOWYDCVJF2731-16-59 14:05:00 Test Item Value Reference Range Interpretation Comments Monocytes # (test code 1.2 See_Comment H [Aut omated message] The = Monocytes #) system which generated this result tra nsmitted reference range : <=0.8. The reference r caitlin was not used to int erpret this result as normal/abnormal . [facility] CenterNvzjmyfPHXMRXJMWS5083-05-86 14:05:00 Test Item Value Reference Range Interpretation Comments Segs (test code = Segs) 43.0 45.0-75.0 L [facility] CenterJybhfpoGJWZVDXKHH1421-49-77 14:05:00 Test Item Value Reference Range Interpretation Comments Lymphocytes # (test code = Lymphocytes 0.6 1.0-5.5 L #) [facility] CenterDazcutgDHTWRHCTKU2924-09-36 14:05:00 Test Item Value Reference Range Interpretation Comments Segs-Bands # (test code = Segs-Bands #) 5.0 1.5-8.1 N [facility] CenterClyuganVBABCNSXV2767-05-59 14:05:00 Test Item Value Reference Range Interpretation Comments Amylase Lvl (test code = Amylase Lvl) 13 25-115 L [facility] CenterZcqodomXTRNONBXG9680-85-33 14:05:00 Test Item Value Reference Range Interpretation Comments A/G Ratio (test code = A/G Ratio) 1.0 0.7-1.6 N [facility] CenterTpdfjihDEOLMMWGJ7338-29-93 14:05:00 Test Item Value Reference Range Interpretation Comments AGAP (test code = AGAP) 17.8 10.0-20.0 N [facility] CenterFrvvuqkXHHYOBWCN6361-84-97 14:05:00 Test Item Value Reference Range Interpretation Comments Globulin (test code = Globulin) 4.3 2.0-4.0 H [facility] CenterIzdsvjxBCQNTVVSN8924-18-25 14:05:00 Test Item Value Reference Range Interpretation Comments B/C Ratio (test code = B/C Ratio) 15 6-25 N [facility] CenterPhimsvpMTVHZFESC1431-85-72 14:05:00 Test Item Value Reference Range Interpretation Comments eGFR (test code = eGFR) 65 [facility] CenterOgstpckJALWOVKNJ6246-60-25 14:05:00 Test Item Value Reference Range Interpretation Comments Calcium Lvl (test code = Calcium Lvl) 9.3 8.5-10.5 N [facility] CenterAfismtcGHXBGQUSB8677-90-83 14:05:00 Test Item Value Reference Range Interpretation Comments CO2 (test code = CO2) 23 24-32 L [facility] CenterSrwxophOTIOAGFBT1171-32-00 14:05:00 Test Item Value Reference Range Interpretation Comments Chloride Lvl (test code = Chloride Lvl) 96 95-109 N [facility] CenterEimolntTYZPARCVQ6072-88-61 14:05:00 Test Item Value Reference Range Interpretation Comments Bili Total (test code = Bili Total) 1.6 0.2-1.3 H [facility] CenterXjtowrrVIFARXJUE3589-48-12 14:05:00 Test Item Value Reference Range Interpretation Comments AST (test code = AST) 22 See_Comment N [Auto mated message] The system which ge nerated this result transmit pradeep reference range : <=37. The reference range was not used to interpr et this result as maximus l/abnormal. [facility] CenterPfsqgcdGBPZJVMJL0927-63-06 14:05:00 Test Item Value Reference Range Interpretation Comments ALT (test code = ALT) 47 See_Comment N [Auto mated message] The system which ge nerated this result transmit pradeep reference range : <=65. The reference range was not used to interpr et this result as maximus l/abnormal. [facility] CenterJvayjokPPTEYVEES9249-09-07 14:05:00 Test Item Value Reference Range Interpretation Comments Albumin Lvl (test code = Albumin Lvl) 4.5 3.5-5.0 N [facility] CenterOlhjbltVTJYPDDIC6521-80-34 14:05:00 Test Item Value Reference Range Interpretation Comments Total Protein (test code = Total 8.8 6.4-8.4 H Protein) [facility] CenterXojpczgSBZTXBKXL2039-58-30 14:05:00 Test Item Value Reference Range Interpretation Comments Alk Phos (test code = Alk Phos) 81 39-136 N [facility] CenterFvcitfoVOJVPFNPM1182-48-92 14:05:00 Test Item Value Reference Range Interpretation Comments BUN (test code = BUN) 19 7-22 N [facility] CenterImudueoICAMYOJAX5552-43-90 14:05:00 Test Item Value Reference Range Interpretation Comments Creatinine Lvl (test code = Creatinine 1.3 0.5-1.4 N Lvl) [facility] CenterFpdwdsjLJTXHKQKA3927-13-58 14:05:00 Test Item Value Reference Range Interpretation Comments Potassium Lvl (test code = Potassium 3.8 3.5-5.1 N Lvl) [facility] CenterTciakmjIQDNVALWJ8493-64-35 14:05:00 Test Item Value Reference Range Interpretation Comments Sodium Lvl (test code = Sodium Lvl) 133 135-145 L [facility] CenterMepuwqlDRTUUNXXX5047-70-24 14:05:00 Test Item Value Reference Range Interpretation Comments Glucose Lvl (test code = Glucose Lvl) 123 70-99 H [facility] CenterLpdrbwoLROLGWQHB0506-07-53 14:05:00 Test Item Value Reference Range Interpretation Comments Lipase Lvl (test code = Lipase Lvl) 38 73-393 L [facility] CenterNmclgmiWWBGXJPUKY4803-65-10 14:05:00 Test Item Value Reference Range Interpretation Comments MCV (test code = MCV) 93.6 80.0-94.0 N [facility] CenterAoirwksAPILXDGGBA3481-26-43 14:05:00 Test Item Value Reference Range Interpretation Comments MCH (test code = MCH) 32.0 pg 27.0-31.0 H [facility] CenterFmnlgxqKSBWMLEEPK6500-40-89 14:05:00 Test Item Value Reference Range Interpretation Comments MCHC (test code = MCHC) 34.2 32.0-36.0 N [facility] CenterRwonywjNMZAPADXIQ4981-85-81 14:05:00 Test Item Value Reference Range Interpretation Comments RDW (test code = RDW) 13.5 11.5-14.5 N [facility] CenterBswtlkbSFHNKJUUQF2659-54-53 14:05:00 Test Item Value Reference Range Interpretation Comments Platelet (test code = Platelet) 359 133-450 N [facility] CenterRydjkbeNJZNGQMDTE6198-54-56 14:05:00 Test Item Value Reference Range Interpretation Comments WBC (test code = WBC) 7.2 3.7-10.4 N [facility] CenterAyezcjnGOYTUBXSMD7490-88-75 14:05:00 Test Item Value Reference Range Interpretation Comments RBC (test code = RBC) 5.46 4.70-6.10 N [facility] CenterZxyhqifSMTVREQVYV2731-77-13 14:05:00 Test Item Value Reference Range Interpretation Comments MPV (test code = MPV) 9.0 7.4-10.4 N [facility] CenterBttbwhaTWEXFDONND2251-22-52 14:05:00 Test Item Value Reference Range Interpretation Comments Hgb (test code = Hgb) 17.5 14.0-18.0 N [facility] CenterSadojwbQAYNOSSCLP5434-47-21 14:05:00 Test Item Value Reference Range Interpretation Comments Hct (test code = Hct) 51.1 42.0-54.0 N [facility] CenterGpdydhoUNJPSNIZWD4885-26-69 14:05:00 Test Item Value Reference Range Interpretation Comments Bands (test code = 27.0 See_Comment H [Automat ed message] The Bands) system which ge nerated this result transmit pradeep reference range : <=11.0. The reference r caitlin was not used to interpr et this result as maximus l/abnormal. [facility] CenterIyyayuqCHKKTPYRHT3161-99-80 14:05:00 Test Item Value Reference Range Interpretation Comments Lymphocytes (test code = Lymphocytes) 9.0 20.0-40.0 L [facility] CenterXjhlyisRCBBLTTDVW4174-58-05 14:05:00 Test Item Value Reference Range Interpretation Comments Monocytes (test code = Monocytes) 16.0 2.0-12.0 H [facility] CenterLmfcyncYNASKWUMPB7105-43-98 14:05:00 Test Item Value Reference Range Interpretation Comments Eosinophils (test code = 1.0 See_Comment N [A utomated message] The Eosinophils) system which ge nerated this result tra nsmitted reference range : <=4.0. The reference r caitlin was not used to int erpret this result as normal/abnormal . [facility] CenterKqdnvgvLFTSYCYQGB0226-34-08 14:05:00 Test Item Value Reference Range Interpretation Comments Metamyelocytes (test code 4.0 See_Comment H [ Automated message] = Metamyelocytes) The system which generated this result transmitted ref erence range: <=1.0. T he reference range was not used to int erpret this result as normal/abnormal . [facility] CenterKouoxlkSRRGQMDKPL7136-62-27 14:05:00 Test Item Value Reference Range Interpretation Comments Atypical Lymphs (test code = Atypical 0.0 N Lymphs) [facility] CenterFkuxieyPPRZBGPQIY7014-40-58 14:05:00 Test Item Value Reference Range Interpretation Comments Tot Cell Ct (test code = Tot Cell Ct) 100 1 [facility] CenterSglywhuDKKRFYXJWN5930-14-79 14:05:00 Test Item Value Reference Range Interpretation Comments Large Plt (test code = Slight *ABN*(01/14/2012 A Large Plt) 08:05:00) [facility] CenterObygwtiGKACOHMOAH2409-45-31 14:05:00 Test Item Value Reference Range Interpretation Comments Eosinophils # (test code 0.1 See_Comment N [A utomated message] The = Eosinophils #) system whic h generated this result tra nsmitted reference range : <=0.5. The reference r caitlin was not used to int erpret this result as normal/abnormal . [facility] CenterQlnfdwrFOAFZGMOCA8655-78-18 14:05:00 Test Item Value Reference Range Interpretation Comments Monocytes # (test code 1.2 See_Comment H [Aut omated message] The = Monocytes #) system which generated this result tra nsmitted reference range : <=0.8. The reference r caitlin was not used to int erpret this result as normal/abnormal . [facility] CenterUmobtlyWXJURKXUYR2269-65-19 14:05:00 Test Item Value Reference Range Interpretation Comments Segs (test code = Segs) 43.0 45.0-75.0 L [facility] CenterMbaueotJJVREINJOF4908-60-73 14:05:00 Test Item Value Reference Range Interpretation Comments Lymphocytes # (test code = Lymphocytes 0.6 1.0-5.5 L #) [facility] CenterXgmymndGDUMNMCJZE2676-41-46 14:05:00 Test Item Value Reference Range Interpretation Comments Segs-Bands # (test code = Segs-Bands #) 5.0 1.5-8.1 N [facility]MlayzvpWAZEYGXSR9724-09-90 14:05:00 Test Item Value Reference Range Interpretation Comments Amylase Lvl (test code = Amylase Lvl) 13 25-115 L [facility] CenterCzvqldzECVDDLSJF5039-28-85 14:05:00 Test Item Value Reference Range Interpretation Comments A/G Ratio (test code = A/G Ratio) 1.0 0.7-1.6 N [facility] CenterDpuivkzHWBAPVYKP1904-63-98 14:05:00 Test Item Value Reference Range Interpretation Comments AGAP (test code = AGAP) 17.8 10.0-20.0 N [facility] CenterAksjpqfSCUKTVDQW3482-21-27 14:05:00 Test Item Value Reference Range Interpretation Comments Globulin (test code = Globulin) 4.3 2.0-4.0 H [facility] CenterQijnsdcBSVOXKZWP3918-79-09 14:05:00 Test Item Value Reference Range Interpretation Comments B/C Ratio (test code = B/C Ratio) 15 6-25 N [facility] CenterFojklfrQUUEUOKVF2245-81-47 14:05:00 Test Item Value Reference Range Interpretation Comments eGFR (test code = eGFR) 65 [facility] CenterJfwprgaYZQWCKYIZ7213-40-82 14:05:00 Test Item Value Reference Range Interpretation Comments Calcium Lvl (test code = Calcium Lvl) 9.3 8.5-10.5 N [facility] CenterUyskixwUKKEIJAXN8027-31-65 14:05:00 Test Item Value Reference Range Interpretation Comments CO2 (test code = CO2) 23 24-32 L [facility] CenterJzspvoyXAHHJEMTM7805-83-80 14:05:00 Test Item Value Reference Range Interpretation Comments Chloride Lvl (test code = Chloride Lvl) 96 95-109 N [facility] CenterDuyaoylOSSUVVTNM2241-61-75 14:05:00 Test Item Value Reference Range Interpretation Comments Bili Total (test code = Bili Total) 1.6 0.2-1.3 H [facility] CenterZwukwzuVSUHWSFEP9280-93-00 14:05:00 Test Item Value Reference Range Interpretation Comments AST (test code = AST) 22 See_Comment N [Auto mated message] The system which ge nerated this result transmit pradeep reference range : <=37. The reference range was not used to interpr et this result as maximus l/abnormal. [facility] CenterAdhiaqiTJRHSQBKL8264-65-07 14:05:00 Test Item Value Reference Range Interpretation Comments ALT (test code = ALT) 47 See_Comment N [Auto mated message] The system which ge nerated this result transmit pradeep reference range : <=65. The reference range was not used to interpr et this result as maximus l/abnormal. [facility] CenterCzgvawtUDDDGAIPD1966-20-39 14:05:00 Test Item Value Reference Range Interpretation Comments Albumin Lvl (test code = Albumin Lvl) 4.5 3.5-5.0 N [facility] CenterWycglfvBZOTRENOA5616-22-99 14:05:00 Test Item Value Reference Range Interpretation Comments Total Protein (test code = Total 8.8 6.4-8.4 H Protein) [facility] CenterHcnxcyvYMMHTLVNJ2758-26-68 14:05:00 Test Item Value Reference Range Interpretation Comments Alk Phos (test code = Alk Phos) 81 39-136 N [facility] CenterHrahfpwWTOYIEBWE0042-07-21 14:05:00 Test Item Value Reference Range Interpretation Comments BUN (test code = BUN) 19 7-22 N [facility] CenterZowrnnpNWLUDPPCS6803-85-54 14:05:00 Test Item Value Reference Range Interpretation Comments Creatinine Lvl (test code = Creatinine 1.3 0.5-1.4 N Lvl) [facility] CenterVwgjppdJZAWAFMAC6516-10-25 14:05:00 Test Item Value Reference Range Interpretation Comments Potassium Lvl (test code = Potassium 3.8 3.5-5.1 N Lvl) [facility] CenterDpimklyBVLPJYCDL1803-73-44 14:05:00 Test Item Value Reference Range Interpretation Comments Sodium Lvl (test code = Sodium Lvl) 133 135-145 L [facility] CenterVxwzoewHGKBQGFNY0831-88-43 14:05:00 Test Item Value Reference Range Interpretation Comments Glucose Lvl (test code = Glucose Lvl) 123 70-99 H [facility] CenterWlnuvqcXSYXLSHXQ6625-62-72 14:05:00 Test Item Value Reference Range Interpretation Comments Lipase Lvl (test code = Lipase Lvl) 38 73-393 L [facility] CenterSmmxarhSPSHVGVVZP1525-05-32 14:05:00 Test Item Value Reference Range Interpretation Comments MCV (test code = MCV) 93.6 80.0-94.0 N [facility] CenterVeakjmlAVMNVZNTOV7505-32-48 14:05:00 Test Item Value Reference Range Interpretation Comments MCH (test code = MCH) 32.0 pg 27.0-31.0 H [facility] CenterAvcviewGJAEUPDRNS3172-12-99 14:05:00 Test Item Value Reference Range Interpretation Comments MCHC (test code = MCHC) 34.2 32.0-36.0 N [facility] CenterXgyaredDYGIIKMIJB4266-00-88 14:05:00 Test Item Value Reference Range Interpretation Comments RDW (test code = RDW) 13.5 11.5-14.5 N [facility] CenterKnndyltRPCUTFPEMH7897-79-21 14:05:00 Test Item Value Reference Range Interpretation Comments Platelet (test code = Platelet) 359 133-450 N [facility] CenterMpiobstASWQVYBBAT4983-03-62 14:05:00 Test Item Value Reference Range Interpretation Comments WBC (test code = WBC) 7.2 3.7-10.4 N [facility] CenterErmlllhMZLZUAOYRG0557-10-28 14:05:00 Test Item Value Reference Range Interpretation Comments RBC (test code = RBC) 5.46 4.70-6.10 N [facility] CenterBolywngUYDZTRTIDF6577-73-05 14:05:00 Test Item Value Reference Range Interpretation Comments MPV (test code = MPV) 9.0 7.4-10.4 N [facility] CenterDufdrzdFEYZEMLNHC9546-47-29 14:05:00 Test Item Value Reference Range Interpretation Comments Hgb (test code = Hgb) 17.5 14.0-18.0 N [facility] CenterXbrdxlpTZCDDLORNE6805-51-99 14:05:00 Test Item Value Reference Range Interpretation Comments Hct (test code = Hct) 51.1 42.0-54.0 N [facility] CenterOyixmfoHNKDKXOBVN6573-64-87 14:05:00 Test Item Value Reference Range Interpretation Comments Bands (test code = 27.0 See_Comment H [Automat ed message] The Bands) system which ge nerated this result transmit pradeep reference range : <=11.0. The reference r caitlin was not used to interpr et this result as maximus l/abnormal. [facility] CenterJhnobbzUUSYETTBKB5798-57-72 14:05:00 Test Item Value Reference Range Interpretation Comments Lymphocytes (test code = Lymphocytes) 9.0 20.0-40.0 L [facility] CenterSjjwopyYGWBTHJJPG0977-78-78 14:05:00 Test Item Value Reference Range Interpretation Comments Monocytes (test code = Monocytes) 16.0 2.0-12.0 H [facility] CenterHinvuxjGOPJEIFLIH8286-33-74 14:05:00 Test Item Value Reference Range Interpretation Comments Eosinophils (test code = 1.0 See_Comment N [A utomated message] The Eosinophils) system which ge nerated this result tra nsmitted reference range : <=4.0. The reference r caitlin was not used to int erpret this result as normal/abnormal . [facility] CenterUrrxlctXEBLKRNEGL6324-34-89 14:05:00 Test Item Value Reference Range Interpretation Comments Metamyelocytes (test code 4.0 See_Comment H [ Automated message] = Metamyelocytes) The system which generated this result transmitted ref erence range: <=1.0. T he reference range was not used to int erpret this result as normal/abnormal . [facility] CenterQowkbbwARSEHLPNGL5901-24-33 14:05:00 Test Item Value Reference Range Interpretation Comments Atypical Lymphs (test code = Atypical 0.0 N Lymphs) [facility] CenterCvrjotbPIAELVWPZR3016-44-12 14:05:00 Test Item Value Reference Range Interpretation Comments Tot Cell Ct (test code = Tot Cell Ct) 100 1 [facility] CenterVjasqzzLQDOYNAJZR9746-41-53 14:05:00 Test Item Value Reference Range Interpretation Comments Large Plt (test code = Slight *ABN*(01/14/2012 A Large Plt) 08:05:00) [facility] CenterTqxvtrtZGFDJUIGJS9006-90-98 14:05:00 Test Item Value Reference Range Interpretation Comments Eosinophils # (test code 0.1 See_Comment N [A utomated message] The = Eosinophils #) system whic h generated this result tra nsmitted reference range : <=0.5. The reference r caitlin was not used to int erpret this result as normal/abnormal . [facility] CenterAccsxagXQIERRAQAW6839-63-05 14:05:00 Test Item Value Reference Range Interpretation Comments Monocytes # (test code 1.2 See_Comment H [Aut omated message] The = Monocytes #) system which generated this result tra nsmitted reference range : <=0.8. The reference r caitlin was not used to int erpret this result as normal/abnormal . [facility] CenterKmwswaiFQXASXXCLY1835-34-27 14:05:00 Test Item Value Reference Range Interpretation Comments Segs (test code = Segs) 43.0 45.0-75.0 L [facility] CenterCqgnktqXWNRKRTQXP3857-25-52 14:05:00 Test Item Value Reference Range Interpretation Comments Lymphocytes # (test code = Lymphocytes 0.6 1.0-5.5 L #) [facility] CenterEkhthbrKCSQPPAKDB1722-37-96 14:05:00 Test Item Value Reference Range Interpretation Comments Segs-Bands # (test code = Segs-Bands #) 5.0 1.5-8.1 N [facility] CenterSigkotySSYFPZUXR0209-60-73 14:05:00 Test Item Value Reference Range Interpretation Comments Amylase Lvl (test code = Amylase Lvl) 13 25-115 L [facility] CenterOwgdzcxZCNYNYSUS3047-00-16 14:05:00 Test Item Value Reference Range Interpretation Comments A/G Ratio (test code = A/G Ratio) 1.0 0.7-1.6 N [facility] CenterJpdthdjPHQWRIKOJ5728-46-30 14:05:00 Test Item Value Reference Range Interpretation Comments AGAP (test code = AGAP) 17.8 10.0-20.0 N [facility]XtbidtfZEHHYEASZ2380-64-07 14:05:00 Test Item Value Reference Range Interpretation Comments Globulin (test code = Globulin) 4.3 2.0-4.0 H [facility] CenterYnmrifdHOQJTAQGQ9575-30-53 14:05:00 Test Item Value Reference Range Interpretation Comments B/C Ratio (test code = B/C Ratio) 15 6-25 N [facility] HospitalUgniekyIPDGHTBKC5689-39-63 14:05:00 Test Item Value Reference Range Interpretation Comments eGFR (test code = eGFR) 65 [facility] CenterNddgxnrXGIABSUSN7208-23-62 14:05:00 Test Item Value Reference Range Interpretation Comments Calcium Lvl (test code = Calcium Lvl) 9.3 8.5-10.5 N [facility] HospitalMdfvrztLQHWOMCPW1304-05-08 14:05:00 Test Item Value Reference Range Interpretation Comments CO2 (test code = CO2) 23 24-32 L [facility] HospitalUtszsrgMZAWWOEKN0455-46-41 14:05:00 Test Item Value Reference Range Interpretation Comments Chloride Lvl (test code = Chloride Lvl) 96 95-109 N [facility] HospitalAbrwlysNBDTJJQON4983-22-40 14:05:00 Test Item Value Reference Range Interpretation Comments Bili Total (test code = Bili Total) 1.6 0.2-1.3 H [facility] HospitalKqjaacbRRNPSYMQA0555-26-14 14:05:00 Test Item Value Reference Range Interpretation Comments AST (test code = AST) 22 See_Comment N [Auto mated message] The system which ge nerated this result transmit pradeep reference range : <=37. The reference range was not used to interpr et this result as maximus l/abnormal. [facility] HospitalNmfyhdrSKQJWUIEQ1828-77-81 14:05:00 Test Item Value Reference Range Interpretation Comments ALT (test code = ALT) 47 See_Comment N [Auto mated message] The system which ge nerated this result transmit pradeep reference range : <=65. The reference range was not used to interpr et this result as maximus l/abnormal. [facility] HospitalVdgjthkDPCXGPAHH1583-22-97 14:05:00 Test Item Value Reference Range Interpretation Comments Albumin Lvl (test code = Albumin Lvl) 4.5 3.5-5.0 N [facility] CenterXmotkyoNKDOYYBHE2235-39-35 14:05:00 Test Item Value Reference Range Interpretation Comments Total Protein (test code = Total 8.8 6.4-8.4 H Protein) [facility] CenterBbpehraFWXPYPJGZ9763-41-83 14:05:00 Test Item Value Reference Range Interpretation Comments Alk Phos (test code = Alk Phos) 81 39-136 N [facility] CenterHywilgjNOEIPKSVW9369-83-86 14:05:00 Test Item Value Reference Range Interpretation Comments BUN (test code = BUN) 19 7-22 N [facility] CenterLviqtcmRZGMYQLKB2742-97-89 14:05:00 Test Item Value Reference Range Interpretation Comments Creatinine Lvl (test code = Creatinine 1.3 0.5-1.4 N Lvl) [facility] CenterBkjqxytWPBBLFBZO5143-31-78 14:05:00 Test Item Value Reference Range Interpretation Comments Potassium Lvl (test code = Potassium 3.8 3.5-5.1 N Lvl) [facility] CenterMptvqkcXKIYTXIKA3960-26-99 14:05:00 Test Item Value Reference Range Interpretation Comments Sodium Lvl (test code = Sodium Lvl) 133 135-145 L [facility] CenterNhuiyxyWDLJECXFX5801-88-40 14:05:00 Test Item Value Reference Range Interpretation Comments Glucose Lvl (test code = Glucose Lvl) 123 70-99 H [facility] CenterFbliiioEWDKORFCK3847-07-98 14:05:00 Test Item Value Reference Range Interpretation Comments Lipase Lvl (test code = Lipase Lvl) 38 73-393 L [facility] CenterPoychksYDBUWMQMPB5630-60-83 14:05:00 Test Item Value Reference Range Interpretation Comments MCV (test code = MCV) 93.6 80.0-94.0 N [facility] CenterAgauybhKFMLPQSGET5633-65-95 14:05:00 Test Item Value Reference Range Interpretation Comments MCH (test code = MCH) 32.0 pg 27.0-31.0 H [facility] CenterXdimgdmGPWSVTIEWC9069-06-50 14:05:00 Test Item Value Reference Range Interpretation Comments MCHC (test code = MCHC) 34.2 32.0-36.0 N [facility] CenterLljeicqGSYQSXCRZW7375-95-11 14:05:00 Test Item Value Reference Range Interpretation Comments RDW (test code = RDW) 13.5 11.5-14.5 N [facility] CenterHsbidlbQPZCHYYAUE1741-45-91 14:05:00 Test Item Value Reference Range Interpretation Comments Platelet (test code = Platelet) 359 133-450 N [facility] CenterVnlgbyqQTHSMQWJSJ7696-11-90 14:05:00 Test Item Value Reference Range Interpretation Comments WBC (test code = WBC) 7.2 3.7-10.4 N [facility] CenterIcmemvjWFZRMTSSIF9687-23-05 14:05:00 Test Item Value Reference Range Interpretation Comments RBC (test code = RBC) 5.46 4.70-6.10 N [facility] CenterXqykuhyZAVMYTMBMW1416-33-39 14:05:00 Test Item Value Reference Range Interpretation Comments MPV (test code = MPV) 9.0 7.4-10.4 N [facility] CenterCutkofzTVTWEUGEZN3608-38-21 14:05:00 Test Item Value Reference Range Interpretation Comments Hgb (test code = Hgb) 17.5 14.0-18.0 N [facility] CenterBlatjxjVAEVEMFVDV3664-95-59 14:05:00 Test Item Value Reference Range Interpretation Comments Hct (test code = Hct) 51.1 42.0-54.0 N [facility] CenterYrhescnBMXITGYZAC1514-67-97 14:05:00 Test Item Value Reference Range Interpretation Comments Bands (test code = 27.0 See_Comment H [Automat ed message] The Bands) system which ge nerated this result transmit pradeep reference range : <=11.0. The reference r caitlin was not used to interpr et this result as maximus l/abnormal. [facility] CenterEwbuedrJHJQFZBKRG4822-96-76 14:05:00 Test Item Value Reference Range Interpretation Comments Lymphocytes (test code = Lymphocytes) 9.0 20.0-40.0 L [facility] CenterEmvqrfuGJJSHJXGEP4945-27-75 14:05:00 Test Item Value Reference Range Interpretation Comments Monocytes (test code = Monocytes) 16.0 2.0-12.0 H [facility] CenterTaatsanZBBOZGEYLP3460-79-39 14:05:00 Test Item Value Reference Range Interpretation Comments Eosinophils (test code = 1.0 See_Comment N [A utomated message] The Eosinophils) system which ge nerated this result tra nsmitted reference range : <=4.0. The reference r caitlin was not used to int erpret this result as normal/abnormal . [facility] CenterEytdsxdMONHXURZIK2724-74-93 14:05:00 Test Item Value Reference Range Interpretation Comments Metamyelocytes (test code 4.0 See_Comment H [ Automated message] = Metamyelocytes) The system which generated this result transmitted ref erence range: <=1.0. T he reference range was not used to int erpret this result as normal/abnormal . [facility] CenterCjlobyaKRQQDEDNUN5842-45-09 14:05:00 Test Item Value Reference Range Interpretation Comments Atypical Lymphs (test code = Atypical 0.0 N Lymphs) [facility] CenterLpxhnbzKWREIQPPKA8858-86-84 14:05:00 Test Item Value Reference Range Interpretation Comments Tot Cell Ct (test code = Tot Cell Ct) 100 1 [facility] CenterWajljiyGBMOOXZJIH6290-02-17 14:05:00 Test Item Value Reference Range Interpretation Comments Large Plt (test code = Slight *ABN*(01/14/2012 A Large Plt) 08:05:00) [facility] CenterDvgctisONQFRJDSEX5068-42-05 14:05:00 Test Item Value Reference Range Interpretation Comments Eosinophils # (test code 0.1 See_Comment N [A utomated message] The = Eosinophils #) system [facility] h generated this result tra nsmitted reference range : <=0.5. The reference r caitlin was not used to int erpret this result as normal/abnormal . [facility] CenterRocomipZLDRUJCSIW6917-90-53 14:05:00 Test Item Value Reference Range Interpretation Comments Monocytes # (test code 1.2 See_Comment H [Aut omated message] The = Monocytes #) system which generated this result tra nsmitted reference range : <=0.8. The reference r caitlin was not used to int erpret this result as normal/abnormal . [facility] CenterBfcozudZARDCWJHXX8242-63-44 14:05:00 Test Item Value Reference Range Interpretation Comments Segs (test code = Segs) 43.0 45.0-75.0 L [facility] CenterUbewzpeQUDGJVJMZY8970-39-93 14:05:00 Test Item Value Reference Range Interpretation Comments Lymphocytes # (test code = Lymphocytes 0.6 1.0-5.5 L #) [facility] CenterXnurnulZLTMKETHJF5692-77-09 14:05:00 Test Item Value Reference Range Interpretation Comments Segs-Bands # (test code = Segs-Bands #) 5.0 1.5-8.1 N [facility] CenterDqkdcntYJCPTPVYQ3112-84-01 14:05:00 Test Item Value Reference Range Interpretation Comments Amylase Lvl (test code = Amylase Lvl) 13 25-115 L [facility] CenterRlvntlnQGJETYBMC2566-71-51 14:05:00 Test Item Value Reference Range Interpretation Comments A/G Ratio (test code = A/G Ratio) 1.0 0.7-1.6 N [facility] CenterSmbisnoLQGPIAMMQ2707-94-76 14:05:00 Test Item Value Reference Range Interpretation Comments AGAP (test code = AGAP) 17.8 10.0-20.0 N [facility] CenterFqwquktIEAXOPGVN3695-85-33 14:05:00 Test Item Value Reference Range Interpretation Comments Globulin (test code = Globulin) 4.3 2.0-4.0 H [facility] CenterPfeyvmnZBURCSMQI1844-03-93 14:05:00 Test Item Value Reference Range Interpretation Comments B/C Ratio (test code = B/C Ratio) 15 6-25 N [facility] CenterUxzpcpuOQVJKTNIH9058-51-36 14:05:00 Test Item Value Reference Range Interpretation Comments eGFR (test code = eGFR) 65 [facility] CenterOsgrwkuXXIOXRQGA1549-86-22 14:05:00 Test Item Value Reference Range Interpretation Comments Calcium Lvl (test code = Calcium Lvl) 9.3 8.5-10.5 N [facility] CenterVpvekcmCNBYDYMOM1182-44-39 14:05:00 Test Item Value Reference Range Interpretation Comments CO2 (test code = CO2) 23 24-32 L [facility] CenterLaugawhAILGIVMHI9249-02-27 14:05:00 Test Item Value Reference Range Interpretation Comments Chloride Lvl (test code = Chloride Lvl) 96 95-109 N [facility] CenterKuzdkjeIHIZKOBYV8247-52-56 14:05:00 Test Item Value Reference Range Interpretation Comments Bili Total (test code = Bili Total) 1.6 0.2-1.3 H [facility] CenterNmjmkgoEMEISVGGA4549-81-69 14:05:00 Test Item Value Reference Range Interpretation Comments AST (test code = AST) 22 See_Comment N [Auto mated message] The system which ge nerated this result transmit pradeep reference range : <=37. The reference range was not used to interpr et this result as maximus l/abnormal. [facility] CenterRiezmodMLEIXNWMV9112-47-18 14:05:00 Test Item Value Reference Range Interpretation Comments ALT (test code = ALT) 47 See_Comment N [Auto mated message] The system which ge nerated this result transmit pradeep reference range : <=65. The reference range was not used to interpr et this result as maximus l/abnormal. [facility] CenterZpjuckeCMLXTFNOG5075-30-24 14:05:00 Test Item Value Reference Range Interpretation Comments Albumin Lvl (test code = Albumin Lvl) 4.5 3.5-5.0 N [facility] CenterQbbiztgMVMSGNCAL1247-51-71 14:05:00 Test Item Value Reference Range Interpretation Comments Total Protein (test code = Total 8.8 6.4-8.4 H Protein) [facility] CenterVlacuoeLREYFULJG3091-46-81 14:05:00 Test Item Value Reference Range Interpretation Comments Alk Phos (test code = Alk Phos) 81 39-136 N [facility] CenterWuoluaoMXPDZMFTI8803-01-45 14:05:00 Test Item Value Reference Range Interpretation Comments BUN (test code = BUN) 19 7-22 N [facility] CenterHcxziukQZPDSHUCJ0269-35-84 14:05:00 Test Item Value Reference Range Interpretation Comments Creatinine Lvl (test code = Creatinine 1.3 0.5-1.4 N Lvl) [facility] CenterVzcjivmHGACFKLFP2450-72-96 14:05:00 Test Item Value Reference Range Interpretation Comments Potassium Lvl (test code = Potassium 3.8 3.5-5.1 N Lvl) [facility] CenterKxnpizhUPSBPHVQI6075-70-76 14:05:00 Test Item Value Reference Range Interpretation Comments Sodium Lvl (test code = Sodium Lvl) 133 135-145 L [facility] CenterMkiuxtgPHKMOLFGS8319-94-13 14:05:00 Test Item Value Reference Range Interpretation Comments Glucose Lvl (test code = Glucose Lvl) 123 70-99 H [facility] CenterQktgybhDSTLBBITG0228-09-51 14:05:00 Test Item Value Reference Range Interpretation Comments Lipase Lvl (test code = Lipase Lvl) 38 73-393 L [facility] CenterXahzxclUQZZZILRFH1222-37-69 14:05:00 Test Item Value Reference Range Interpretation Comments MCV (test code = MCV) 93.6 80.0-94.0 N [facility] CenterOloxrbtLOSLKULBZD5739-87-65 14:05:00 Test Item Value Reference Range Interpretation Comments MCH (test code = MCH) 32.0 pg 27.0-31.0 H [facility] CenterLwkwgypGBHNSAKQXY4875-83-47 14:05:00 Test Item Value Reference Range Interpretation Comments MCHC (test code = MCHC) 34.2 32.0-36.0 N [facility] CenterSoxurlyYBFMQLYMEN2059-26-46 14:05:00 Test Item Value Reference Range Interpretation Comments RDW (test code = RDW) 13.5 11.5-14.5 N [facility] CenterLocpfvcHAMHFZXHPB9949-21-64 14:05:00 Test Item Value Reference Range Interpretation Comments Platelet (test code = Platelet) 359 133-450 N [facility] CenterZdqrxudQKVMOVQXCP4094-96-09 14:05:00 Test Item Value Reference Range Interpretation Comments WBC (test code = WBC) 7.2 3.7-10.4 N [facility] [facility]pfzpzvAVAVYOBRVF1439-29-94 14:05:00 Test Item Value Reference Range Interpretation Comments RBC (test code = RBC) 5.46 4.70-6.10 N [facility] CenterRqtqtrqGDALBWCDOL2419-47-94 14:05:00 Test Item Value Reference Range Interpretation Comments MPV (test code = MPV) 9.0 7.4-10.4 N [facility] CenterCqtbhwlCUWMDPNUTE3956-66-34 14:05:00 Test Item Value Reference Range Interpretation Comments Hgb (test code = Hgb) 17.5 14.0-18.0 N [facility] CenterWszzwqhORELBWYHLW1174-34-63 14:05:00 Test Item Value Reference Range Interpretation Comments Hct (test code = Hct) 51.1 42.0-54.0 N [facility] CenterZvofnumKQXINSZQIC4456-88-06 14:05:00 Test Item Value Reference Range Interpretation Comments Bands (test code = 27.0 See_Comment H [Automat ed message] The Bands) system which ge nerated this result transmit pradeep reference range : <=11.0. The reference r caitlin was not used to interpr et this result as maximus l/abnormal. [facility] CenterYvgcbltRHKUYPDUWM6696-35-92 14:05:00 Test Item Value Reference Range Interpretation Comments Lymphocytes (test code = Lymphocytes) 9.0 20.0-40.0 L [facility] CenterDyoyzqdQTTEADPQHC3822-50-44 14:05:00 Test Item Value Reference Range Interpretation Comments Monocytes (test code = Monocytes) 16.0 2.0-12.0 H [facility] CenterBpdqokuIBATWASKLR3250-80-69 14:05:00 Test Item Value Reference Range Interpretation Comments Eosinophils (test code = 1.0 See_Comment N [A utomated message] The Eosinophils) system which ge nerated this result tra nsmitted reference range : <=4.0. The reference r caitlin was not used to int erpret this result as normal/abnormal . [facility] CenterQqsofcxJVLEDTDWFP1050-80-88 14:05:00 Test Item Value Reference Range Interpretation Comments Metamyelocytes (test code 4.0 See_Comment H [ Automated message] = Metamyelocytes) The system which generated this result transmitted ref erence range: <=1.0. T he reference range was not used to int erpret this result as normal/abnormal . [facility] CenterXibnuinPIURIORQEU1014-44-34 14:05:00 Test Item Value Reference Range Interpretation Comments Atypical Lymphs (test code = Atypical 0.0 N Lymphs) [facility] CenterVupfmxzKJMBUIHEXW0192-98-93 14:05:00 Test Item Value Reference Range Interpretation Comments Tot Cell Ct (test code = Tot Cell Ct) 100 1 [facility] CenterOefhkzeXIHVPSXRIA3744-58-28 14:05:00 Test Item Value Reference Range Interpretation Comments Large Plt (test code = Slight *ABN*(01/14/2012 A Large Plt) 08:05:00) [facility] CenterDtcfpsdXQIQUFHRQH0062-78-12 14:05:00 Test Item Value Reference Range Interpretation Comments Eosinophils # (test code 0.1 See_Comment N [A utomated message] The = Eosinophils #) system [facility] generated this result tra nsmitted reference range : <=0.5. The reference r caitlin was not used to int erpret this result as normal/abnormal . [facility] CenterTfryyhjIZIDPWBEKS5724-16-39 14:05:00 Test Item Value Reference Range Interpretation Comments Monocytes # (test code 1.2 See_Comment H [Aut omated message] The = Monocytes #) system which generated this result tra nsmitted reference range : <=0.8. The reference r caitlin was not used to int erpret this result as normal/abnormal . [facility] CenterDaopenfGMZDVOXHLH3104-74-44 14:05:00 Test Item Value Reference Range Interpretation Comments Segs (test code = Segs) 43.0 45.0-75.0 L [facility] CenterZazokbfCFUKYORASG4330-57-60 14:05:00 Test Item Value Reference Range Interpretation Comments Lymphocytes # (test code = Lymphocytes 0.6 1.0-5.5 L #) [facility] CenterZjjlgviGOPOQKUCBH1368-51-27 14:05:00 Test Item Value Reference Range Interpretation Comments Segs-Bands # (test code = Segs-Bands #) 5.0 1.5-8.1 N [facility]JnhshrzJVXQMIPFP7176-67-90 14:05:00 Test Item Value Reference Range Interpretation Comments Amylase Lvl (test code = Amylase Lvl) 13 25-115 L [facility] CenterOwsvckbSRQHGCPVP1328-15-30 14:05:00 Test Item Value Reference Range Interpretation Comments A/G Ratio (test code = A/G Ratio) 1.0 0.7-1.6 N [facility] CenterNmmjlzoUUTRQMYRN9212-76-14 14:05:00 Test Item Value Reference Range Interpretation Comments AGAP (test code = AGAP) 17.8 10.0-20.0 N [facility] CenterAfkjvgkBDKWEXSNY4602-15-85 14:05:00 Test Item Value Reference Range Interpretation Comments Globulin (test code = Globulin) 4.3 2.0-4.0 H [facility] CenterYseptwdOWVYHRKAZ0651-43-31 14:05:00 Test Item Value Reference Range Interpretation Comments B/C Ratio (test code = B/C Ratio) 15 6-25 N [facility] CenterZpfupafAUKEJPJOT0057-86-23 14:05:00 Test Item Value Reference Range Interpretation Comments eGFR (test code = eGFR) 65 [facility] CenterYnbapumJAQKJWYHS8926-84-80 14:05:00 Test Item Value Reference Range Interpretation Comments Calcium Lvl (test code = Calcium Lvl) 9.3 8.5-10.5 N [facility] CenterZypganwOFWNSGAAD3165-45-29 14:05:00 Test Item Value Reference Range Interpretation Comments CO2 (test code = CO2) 23 24-32 L [facility] CenterFgqvrvxMHTPGWOSF5873-34-32 14:05:00 Test Item Value Reference Range Interpretation Comments Chloride Lvl (test code = Chloride Lvl) 96 95-109 N [facility] CenterCgakvcnWRYHACRYZ5454-91-19 14:05:00 Test Item Value Reference Range Interpretation Comments Bili Total (test code = Bili Total) 1.6 0.2-1.3 H [facility] CenterCbyjghoXLDVMWFJT2844-00-13 14:05:00 Test Item Value Reference Range Interpretation Comments AST (test code = AST) 22 <=37 N [facility] CenterHbiemlwSUAGVIUBR2787-74-38 14:05:00 Test Item Value Reference Range Interpretation Comments ALT (test code = ALT) 47 <=65 N [facility] CenterMujpymoZUFDECALH4654-64-11 14:05:00 Test Item Value Reference Range Interpretation Comments Albumin Lvl (test code = Albumin Lvl) 4.5 3.5-5.0 N [facility] CenterHpwclgnSCCBEJXKH9747-60-21 14:05:00 Test Item Value Reference Range Interpretation Comments Total Protein (test code = Total 8.8 6.4-8.4 H Protein) [facility] CenterWlrjaxvEFPHKMXFM1809-22-70 14:05:00 Test Item Value Reference Range Interpretation Comments Alk Phos (test code = Alk Phos) 81 39-136 N [facility] CenterBmlrwtgDCETQWTFD6604-23-66 14:05:00 Test Item Value Reference Range Interpretation Comments BUN (test code = BUN) 19 7-22 N [facility] CenterJdwztspJVZZMGEWU7604-45-30 14:05:00 Test Item Value Reference Range Interpretation Comments Creatinine Lvl (test code = Creatinine 1.3 0.5-1.4 N Lvl) [facility] CenterZesjztrOUFKSRRHM7735-50-69 14:05:00 Test Item Value Reference Range Interpretation Comments Potassium Lvl (test code = Potassium 3.8 3.5-5.1 N Lvl) [facility] CenterZqdxaylXYMHPBYFA2336-16-90 14:05:00 Test Item Value Reference Range Interpretation Comments Sodium Lvl (test code = Sodium Lvl) 133 135-145 L [facility] CenterSytoqtyXEEJEXRPD4048-02-96 14:05:00 Test Item Value Reference Range Interpretation Comments Glucose Lvl (test code = Glucose Lvl) 123 70-99 H [facility] CenterXcujkghVNVCWUJJD9831-02-40 14:05:00 Test Item Value Reference Range Interpretation Comments Lipase Lvl (test code = Lipase Lvl) 38 73-393 L [facility] CenterUvwngnnAFYKVYNWTK0028-88-19 14:05:00 Test Item Value Reference Range Interpretation Comments MCV (test code = MCV) 93.6 80.0-94.0 N [facility] CenterPwbuoieTXCZQIFNZF1334-37-56 14:05:00 Test Item Value Reference Range Interpretation Comments MCH (test code = MCH) 32.0 pg 27.0-31.0 H [facility] CenterFlmpbbnHJXHMVBTTZ8469-49-17 14:05:00 Test Item Value Reference Range Interpretation Comments MCHC (test code = MCHC) 34.2 32.0-36.0 N [facility] CenterWgqddgsQJYQPLUGLD9340-84-76 14:05:00 Test Item Value Reference Range Interpretation Comments RDW (test code = RDW) 13.5 11.5-14.5 N [facility] CenterMafrthdWHIBGQHKZG1347-55-73 14:05:00 Test Item Value Reference Range Interpretation Comments Platelet (test code = Platelet) 359 133-450 N [facility] CenterMenoerrYALTRHCWPY0596-37-00 14:05:00 Test Item Value Reference Range Interpretation Comments WBC (test code = WBC) 7.2 3.7-10.4 N [facility] CenterDcgyaqbPOATKUBLVB4647-43-37 14:05:00 Test Item Value Reference Range Interpretation Comments RBC (test code = RBC) 5.46 4.70-6.10 N [facility] CenterXgxeemoWRHPZBJRKB6260-65-48 14:05:00 Test Item Value Reference Range Interpretation Comments MPV (test code = MPV) 9.0 7.4-10.4 N [facility] CenterOhaawwtPICIYUUGPU1896-52-58 14:05:00 Test Item Value Reference Range Interpretation Comments Hgb (test code = Hgb) 17.5 14.0-18.0 N [facility] CenterNgkidfxUEVRKGTQNH1962-31-66 14:05:00 Test Item Value Reference Range Interpretation Comments Hct (test code = Hct) 51.1 42.0-54.0 N [facility] CenterAnzdjjdIHSSWLRIDK5147-72-78 14:05:00 Test Item Value Reference Range Interpretation Comments Bands (test code = Bands) 27.0 <=11.0 H [facility] CenterVrlxqhvXDEQHYJZWV5849-62-11 14:05:00 Test Item Value Reference Range Interpretation Comments Lymphocytes (test code = Lymphocytes) 9.0 20.0-40.0 L [facility] CenterKittrxpSXEOAOGUNL6369-51-12 14:05:00 Test Item Value Reference Range Interpretation Comments Monocytes (test code = Monocytes) 16.0 2.0-12.0 H [facility] CenterMmdtstlFWJHZIGGNT7110-70-96 14:05:00 Test Item Value Reference Range Interpretation Comments Eosinophils (test code = Eosinophils) 1.0 <=4.0 N [facility] CenterCotcrayZJQNWGJOQK1615-32-57 14:05:00 Test Item Value Reference Range Interpretation Comments Metamyelocytes (test code = 4.0 <=1.0 H Metamyelocytes) [facility] CenterTitsbalNCFBAMYIUM4179-29-58 14:05:00 Test Item Value Reference Range Interpretation Comments Atypical Lymphs (test code = Atypical 0.0 N Lymphs) [facility] CenterJjzwlsgUBPLJAELXY3693-60-11 14:05:00 Test Item Value Reference Range Interpretation Comments Tot Cell Ct (test code = Tot Cell Ct) 100 1 [facility] CenterOefyevdIBUQEBGXRP5839-65-60 14:05:00 Test Item Value Reference Range Interpretation Comments Large Plt (test code = Slight *ABN*(01/14/2012 A Large Plt) 08:05:00) [facility] CenterCsfsztgLVFVQJVQBL2350-51-33 14:05:00 Test Item Value Reference Range Interpretation Comments Eosinophils # (test code = Eosinophils 0.1 <=0.5 N #) [facility] CenterSrebzeiHMQAATPVLW8177-45-13 14:05:00 Test Item Value Reference Range Interpretation Comments Monocytes # (test code = Monocytes #) 1.2 <=0.8 H [facility] CenterRsfjrbyATQNDRHGTY0411-27-36 14:05:00 Test Item Value Reference Range Interpretation Comments Segs (test code = Segs) 43.0 45.0-75.0 L [facility] CenterLgxeuqmWCDKSLZQJP2417-36-25 14:05:00 Test Item Value Reference Range Interpretation Comments Lymphocytes # (test code = Lymphocytes 0.6 1.0-5.5 L #) [facility] CenterGlrelwrCHHTGGPSUT6183-77-61 14:05:00 Test Item Value Reference Range Interpretation Comments Segs-Bands # (test code = Segs-Bands #) 5.0 1.5-8.1 N [facility] CenterTpctzlqYJQISTSAZ4894-97-20 14:05:00 Test Item Value Reference Range Interpretation Comments Amylase Lvl (test code = Amylase Lvl) 13 25-115 L [facility] CenterXovohyaWLACBCDHC6987-82-58 14:05:00 Test Item Value Reference Range Interpretation Comments A/G Ratio (test code = A/G Ratio) 1.0 0.7-1.6 N [facility] CenterXjzezirPDLROGCVY5452-82-25 14:05:00 Test Item Value Reference Range Interpretation Comments AGAP (test code = AGAP) 17.8 10.0-20.0 N [facility] CenterYoedfzoLVFHCBFLC8550-83-22 14:05:00 Test Item Value Reference Range Interpretation Comments Globulin (test code = Globulin) 4.3 2.0-4.0 H [facility] CenterJjkhoxuVRLTCAFPU0750-31-75 14:05:00 Test Item Value Reference Range Interpretation Comments B/C Ratio (test code = B/C Ratio) 15 6-25 N [facility] CenterXrzjxbvTBYTIMMZO0854-10-86 14:05:00 Test Item Value Reference Range Interpretation Comments eGFR (test code = eGFR) 65 [facility] CenterBjoraglTMQFJPPOO0700-43-19 14:05:00 Test Item Value Reference Range Interpretation Comments Calcium Lvl (test code = Calcium Lvl) 9.3 8.5-10.5 N [facility] CenterApyzdzjVBCBPMSAH2869-84-63 14:05:00 Test Item Value Reference Range Interpretation Comments CO2 (test code = CO2) 23 24-32 L [facility]
[2023-01-04 15:59] LABS: Absolute Lymphocytes (CBC) 1.2 K/uL (0.7-4.9); Hematocrit 42.6 % (39.6-49.0); Lymphocytes % 20.3 % (15.3-44.8); MCV 90.5 fL (80-100); MPV 7.6 fL (7.6-11.3); Platelets 161 thou/uL (152-406); RBC Red Blood Cell Count 4.71 M/uL (4.33-5.43)
[2023-01-04 16:14] LABS: Albumin 3.7 g/dL (3.4-5.0); Bilirubin Total 0.4 mg/dL (0.2-1.0); Potassium 4.1 mEq/L (3.5-5.1); Protein, Total 7.1 g/dL (6.4-8.2)
[2023-01-04] MEDS ORDERED: MORPHINE 4 MG/ML SYR ONE (17:40)
--- NOTE | 2023-01-04 19:43 | ER ---
Nurse's Notes [facility] Name: Juan Carlos Armando Age: 57 yrs Sex: Male : 1965 Arrival Date: 01/04/2023 Time: 14:55 Bed 8 Private MD: Diagnosis: kidney stone Presentation: 01/04 15:06 Chief complaint: Patient states: Right flank pain onset . Pt had CT scan done cm10 on Saturday and was diagnosed with a 1cm obstructing kidney stone in right kidney. Pt states that he is unable to get in to see a urologist and is having worsening pain. Coronavirus screen: Vaccine status: Patient reports being unvaccinated. Client denies travel out of the [place] in the last 14 days. Ebola Screen: Patient denies travel to an Ebola-affected area in the 21 days before illness onset. No symptoms or risks identified at this time. Initial Sepsis Screen: Does the patient meet any 2 criteria? No. Patient's initial sepsis screen is negative. Does the patient have a suspected source of infection? No. Patient's initial sepsis screen is negative. Risk Assessment: Do you want to hurt yourself or someone else? Patient reports no desire to harm self or others. Onset of symptoms was January 04, 2023. 15:06 Method Of Arrival: Ambulatory cm10 15:06 Acuity: QUINTEN 3 cm10 Triage Assessment: 23:05 General: Appears in no apparent distress. comfortable, Behavior is calm, cooperative. cm10 Historical: - Allergies: 15:05 No Known Allergies; cm10 - PMHx: 15:05 Lymphoma- Remission; cm10 - Immunization history:: Adult Immunizations unknown. - Social history:: Smoking status: unknown. - Family history:: not pertinent. Screenin:45 [facility] ED Fall Risk Assessment (Adult) History of falling in the last 3 months, ph including since admission No falls in past 3 months (0 pts) Score/Fall Risk Level 0 - 2 = Low Risk Oriented to surroundings, Maintained a safe environment, Hourly rounding (assess needs \T\ fall precautionary measures) done, Used ambulatory aids as needed (educated on \T\ assisted with). Abuse screen: Denies threats or abuse. Denies injuries from another. Nutritional screening: No deficits noted. Tuberculosis screening: No symptoms or risk factors identified. Assessment: 15:46 Pain: Complains of pain in right mid back Pain radiates to right lower quadrant. Neuro: ph Level of Consciousness is awake, alert, obeys commands, Oriented to person, place, time, situation. Cardiovascular: Capillary refill < 3 seconds in bilateral fingers Patient's skin is warm and dry. Respiratory: Airway is patent Respiratory effort is even, unlabored. GI: Abdomen is round Patient currently denies nausea, vomiting. : Reports pain in right lower quadrant(s) in lower back. Derm: Skin is pink, warm \T\ dry. 18:19 Reassessment: Patient appears in no apparent distress at this time. Patient and/or ph family updated on plan of care and expected duration. Pain level reassessed. Patient is alert, oriented x 3, equal unlabored respirations, skin warm/dry/pink. 22:47 Reassessment: Attempted to give report, no answer. cm10 23:03 Reassessment: Report given to JOS Pollock at [facility]. cm10 23:05 GI: Bowel sounds Abd is soft. cm10 Vital Signs: 15:06 BP 123 / 88; Pulse 73; Resp 16; Temp 99(TE); Pulse Ox 100% ; Weight 90.72 kg; Height 5 cm10 ft. 10 in. ; Pain 10/10; 15:52 BP 110 / 75; Pulse 61; Resp 18; Pulse Ox 100% on R/A; ph 17:48 BP 121 / 83; Pulse 66; Resp 18; Pulse Ox 98% on R/A; ph 20:00 BP 138 / 88; Pulse 60; Resp 18; Pulse Ox 93% on R/A; cm10 22:30 BP 123 / 81; Pulse 106; Resp 18; Pulse Ox 100% ; cm10 15:06 Body Mass Index 28.70 (90.72 kg, 177.8 cm) cm10 15:06 Pain Scale: Adult cm10 ED Course: 14:58 Patient arrived in ED. mr 14:58 Maude Mckeon MD is Attending Physician. cp3 15:08 Triage completed. cm10 15:08 Arm band placed on Patient placed in an exam room, on a stretcher. cm10 15:13 Rona Jimenez RN is Primary Nurse. ph 15:45 Patient has correct armband on for positive identification. Placed in gown. Bed in low ph position. Call light in reach. Side rails up X 1. Pulse ox on. NIBP on. 15:45 Initial lab(s) drawn, by ED staff, sent to lab. Missed attempt(s): 22 gauge in right ph antecubital area. Bleeding controlled, band aid applied, catheter tip intact. Missed attempt(s): 22 gauge in right antecubital area. Bleeding controlled, band aid applied, catheter tip intact. Inserted saline lock: 22 gauge in left upper arm, using aseptic technique. Blood collected. 16:00 CBC with Diff Sent. ph 16:00 CMP Sent. ph 16:00 Lipase Sent. ph 19:11 Primary Nurse role handed off by Rona Jimenez RN as6 19:26 Bassam Guillen, JOS is Primary Nurse. rv 19:46 CT Abd/Pelvis - Without Contrast In Process Unspecified. EDMS 22:03 PT ACCEPTED TO [facility]. ADMIN APPROVAL GIVEN BY ADAMA RANGEL AT [facility] [address] DR[address] JOHNSON,N \T\ 1933. REPORT NUMBER [id number]. 23:05 No provider procedures requiring assistance completed. Patient transferred, IV remains cm10 in place. 23:06 Provided Education on: Need for transfer. cm10 23:06 Report given to Marielena [facility] who assumes care of patient. Patient stable cm10 for transport at this time. Administered Medications: 15:50 Drug: NS 0.9% IV 1000 ml IV at 1 bolus Per protocol; 1000 mL bolus Route: IV; Rate: 1 ph bolus; Site: left upper arm; 15:50 Drug: TORadol - Ketorolac IVP 15 mg IVP once Route: IVP; Site: left upper arm; ph 19:55 Follow up: Response: No adverse reaction cm10 17:48 Drug: morphine IVP or IV 4 mg IVP once over 4 mins Route: IVP; Infused Over: 4 mins; ph Site: left upper arm; 19:55 Follow up: Response: No adverse reaction cm10 19:55 Drug: Ondansetron Oral Disintegrating Tablet Oral Disintegrating Tablet 4 mg PO once cm10 Route: PO; 23:06 Follow up: Response: No adverse reaction cm10 19:55 Drug: oxyCODONE-acetaminophen PO (5 mg-325 mg) 1 tabs PO once Route: PO; cm10 23:06 Follow up: Response: No adverse reaction cm10 20:16 Not Given (Patient Refused): morphineor iv 4 mg IVP once over 4 mins cm10 20:16 Not Given (Patient Refused): ondansetron 4 mg IVP once; over 2 minutes cm10 Medication: 15:59 VIS not applicable for this client. ph Outcome: 19:42 ER care complete, transfer ordered by . cp3 23:05 Transferred by ground EMS [facility] to [facility], [facility], Transfer cm10 form completed. X-rays sent w/ patient. 23:05 Condition: good 23:05 Instructed on the need for transfer, 23:07 Patient left the ED. cm10 Signatures: Dispatcher [employer] EDMS Maude Mckeon MD MD cp3 Nathaly Paredes, Reg Reg mr Rona Jimenez, RN RN Bassam Serna RN RN rv Wade Trevino RN RN as6 Kimberly Lopez RN RN cm10 Hortencia [facility] Corrections: (The following items were deleted from the chart) 15:06 15:05 PMHx: Hypertensive disorder; cm10 cm10 17:48 17:48 morphine IVP or IV 4 mg IVP in right antecubital over 4 mins ph ph
--- NOTE | 2023-01-04 19:43 | EDPHYS ---
Physician Documentation [facility] Name: Juan Carlos Armando Age: 57 yrs Sex: Male : 1965 Arrival Date: 01/04/2023 Time: 14:55 Bed 8 Private MD: ED Physician Maude Mckeon HPI: 01/04 15:33 This 57 yrs old Male presents to ER via Ambulatory with complaints of Possible Kidney cp3 Stone. 15:33 The patient complains of pain in the mid back area. Location: right mid back. Onset: cp3 The symptoms/episode began/occurred last week. Modifying factors: The symptoms are alleviated by nothing. the symptoms are aggravated by nothing. Associated signs and symptoms: Pertinent positives:. Severity of pain: At its worst the pain was severe in the emergency department the pain is unchanged. The patient has experienced similar episodes in the past, history of renal stones. patient seen by pcp and sent for ct - 1cm obsturcting right stone, mild hydro. Historical: - Allergies: 15:05 No Known Allergies; cm10 - PMHx: 15:05 Lymphoma- Remission; cm10 - Immunization history:: Adult Immunizations unknown. - Social history:: Smoking status: unknown. - Family history:: not pertinent. ROS: 19:30 Constitutional: Negative for fever, chills, and weight loss, Eyes: Negative for injury, cp3 pain, redness, and discharge, ENT: Negative for injury, pain, and discharge, Neck: Negative for injury, pain, and swelling, Cardiovascular: Negative for chest pain, palpitations, and edema, Respiratory: Negative for shortness of breath, cough, wheezing, and pleuritic chest pain, MS/Extremity: Negative for injury and deformity, Skin: Negative for injury, rash, and discoloration, Neuro: Negative for headache, weakness, numbness, tingling, and seizure, Psych: Negative for depression, anxiety, suicide ideation, homicidal ideation, and hallucinations, Allergy/Immunology: Negative for hives, rash, and allergies, Endocrine: Negative for neck swelling, polydipsia, polyuria, polyphagia, and marked weight changes, Hematologic/Lymphatic: Negative for swollen nodes, abnormal bleeding, and unusual bruising, 19:30 Abdomen/GI: Positive for Exam: 20:28 Constitutional: This is a well developed, well nourished patient who is awake, alert, cp3 and in no acute distress. Head/Face: Normocephalic, atraumatic. Eyes: Pupils equal round and reactive to light, extra-ocular motions intact. Lids and lashes normal. Conjunctiva and sclera are non-icteric and not injected. Cornea within normal limits. Periorbital areas with no swelling, redness, or edema. ENT: Nares patent. No nasal discharge, no septal abnormalities noted. Tympanic membranes are normal and external auditory canals are clear. Oropharynx with no redness, swelling, or masses, exudates, or evidence of obstruction, uvula midline. Mucous membranes moist. Neck: Trachea midline, no thyromegaly or masses palpated, and no cervical lymphadenopathy. Supple, full range of motion without nuchal rigidity, or vertebral point tenderness. No Meningismus. Chest/axilla: Normal chest wall appearance and motion. Nontender with no deformity. No lesions are appreciated. Cardiovascular: Regular rate and rhythm with a normal S1 and S2. No gallops, murmurs, or rubs. Normal PMI, no JVD. No pulse deficits. Respiratory: Lungs have equal breath sounds bilaterally, clear to auscultation and percussion. No rales, rhonchi or wheezes noted. No increased work of breathing, no retractions or nasal flaring. Back: No spinal tenderness. No costovertebral tenderness. Full range of motion. Skin: Warm, dry with normal turgor. Normal color with no rashes, no lesions, and no evidence of cellulitis. MS/ Extremity: Pulses equal, no cyanosis. Neurovascular intact. Full, normal range of motion. Neuro: Awake and alert, GCS 15, oriented to person, place, time, and situation. Cranial nerves II-XII grossly intact. Motor strength 5/5 in all extremities. Sensory grossly intact. Cerebellar exam normal. Normal gait. Psych: Awake, alert, with orientation to person, place and time. Behavior, mood, and affect are within normal limits. 20:28 Abdomen/GI: Right CVA tenderness, Vital Signs: 15:06 BP 123 / 88; Pulse 73; Resp 16; Temp 99(TE); Pulse Ox 100% ; Weight 90.72 kg; Height 5 cm10 ft. 10 in. ; Pain 10/10; 15:52 BP 110 / 75; Pulse 61; Resp 18; Pulse Ox 100% on R/A; ph 17:48 BP 121 / 83; Pulse 66; Resp 18; Pulse Ox 98% on R/A; ph 20:00 BP 138 / 88; Pulse 60; Resp 18; Pulse Ox 93% on R/A; cm10 22:30 BP 123 / 81; Pulse 106; Resp 18; Pulse Ox 100% ; cm10 15:06 Body Mass Index 28.70 (90.72 kg, 177.8 cm) cm10 15:06 Pain Scale: Adult cm10 MDM: 14:58 Patient medically screened. cp3 20:26 Differential diagnosis: nephrolithiasis, pyelonephritis, UTI. Data reviewed: vital cp3 signs, nurses notes, radiologic studies, CT scan, CT images reviewed by me-obstructing right renal stone. Consideration of Admission/Observation Escalation of care including admission/observation considered. Patient with intractable pain. Patient has not establish care with urology. Will transfer for pain control and definitive management of renal stone. I considered the following discharge prescriptions or medication management in the emergency department Medications were administered in the Emergency Department. See MAR. Independent interpretation of the following test(s) in the Emergency Department pvc monitor: pvc monitor interpreted by me: Rate 60, normal sinus rhythm. Historians other than the Patient: Obstructing stone. Response to treatment: There is no appreciated change of the patient's symptoms at this time. ED course: Transfer initiated to [facility]. 21:18 Management of patient was discussed with the following: Urology- will accept if patient cp3 unable to tolerate pain. i advised patient with intractable pain. External Records Reviewed: Outpatient radiology: ct abd/pelvis with 10mm stone on right. Response to treatment: There is no appreciated change of the patient's symptoms at this time. 01/04 15:11 Order name: CBC with Diff; Complete Time: 16:38 3 01/04 15:11 Order name: CMP; Complete Time: 16:38 3 01/04 15:11 Order name: Lipase; Complete Time: 16:38 3 01/04 19:12 Order name: CT Abd/Pelvis - Without Contrast; Complete Time: 20:25 cp3 01/04 15:11 Order name: IV Saline Lock; Complete Time: 16:00 3 01/04 15:11 Order name: Labs collected and sent; Complete Time: 16:00 cp3 Administered Medications: 15:50 Drug: NS 0.9% IV 1000 ml IV at 1 bolus Per protocol; 1000 mL bolus Route: IV; Rate: 1 ph bolus; Site: left upper arm; 15:50 Drug: TORadol - Ketorolac IVP 15 mg IVP once Route: IVP; Site: left upper arm; ph 19:55 Follow up: Response: No adverse reaction cm10 17:48 Drug: morphine IVP or IV 4 mg IVP once over 4 mins Route: IVP; Infused Over: 4 mins; ph Site: left upper arm; 19:55 Follow up: Response: No adverse reaction cm10 19:55 Drug: Ondansetron Oral Disintegrating Tablet Oral Disintegrating Tablet 4 mg PO once cm10 Route: PO; 23:06 Follow up: Response: No adverse reaction cm10 19:55 Drug: oxyCODONE-acetaminophen PO (5 mg-325 mg) 1 tabs PO once Route: PO; cm10 23:06 Follow up: Response: No adverse reaction cm10 20:16 Not Given (Patient Refused): morphineor iv 4 mg IVP once over 4 mins cm10 20:16 Not Given (Patient Refused): ondansetron 4 mg IVP once; over 2 minutes cm10 Disposition Summary: 01/04/23 19:42 Transfer Ordered Notes: Transfer Location: Other Acute Care Facility cp3 Reason: Higher level of care cp3 Condition: Stable cp3 Problem: new cp3 Symptoms: are unchanged cp3 Accepting Physician: Erik(01/04/23 23:07) cm10 Diagnosis - kidney stone cp3 Forms: - Medication Reconciliation Form cp3 - SBAR form cp3 Signatures: Dispatcher [employer] Maude Garrett MD MD cp3 Rona Jimenez RN RN ph Kimberly Lopez RN RN cm10 Corrections: (The following items were deleted from the chart) 15:06 15:05 PMHx: Hypertensive disorder; cm10 cm10 21:52 19:42 pending cp3 cp3 23:07 21:52 Erik [email or web address] cm10
[2023-01-04] MEDS ORDERED: OXYCODONE HCL 5 MG TAB ONE (20:04)
[2023-01-04] MEDS ORDERED: ONDANSETRON 4 MG (ODT) TAB ONE (20:04)
--- NOTE | 2023-01-04 20:19 | RAD REPORT ---
EXAM DESCRIPTION: CT - Abdomen Pelvis Wo Contrast - 01/04/2023 7:46 pm CLINICAL HISTORY: Abdominal pain. Right flank pain COMPARISON: None TECHNIQUE: Computed axial tomography of the abdomen and pelvis was obtained. IV and oral contrast we re not requested. All CT scans are performed using dose optimization technique as appropriate and may include automated exposure control or mA/KV adjustment according to patient size. FINDINGS: The evaluation of solid organs, vessels and bowel is limited secondary to the lack of con trast administration. The liver, spleen, pancreas, adrenals and and left kidney appear grossly normal. 4.4 centimeter cystic mass right kidney. Tiny right renal calculi. Mild right hydronephrosis. 8 millimeter calculus mid right ureter. The appendix is normal. There is no evidence of diverticulitis. Small left inguinal hernia IMPRESSION: 8 millimeter calculus mid right ureter resulting in mild right hydronephrosis 4.4 centimeter cystic mass right kidney probably a cyst. It is recommended that the patient have a no nemergent renal ultrasound for confirmation
[2023-01-04 23:53] VITALS: TEMP 99
[2023-01-05 00:18] VITALS: BP 123/81; O2SAT 100
== END 2023-01-04 23:07 ==
LOC: ER 14:55
DX: N13.2 Hydronephrosis with renal and ureteral calculous obstruction (principal)
CPT/HCPCS: 36415; 74176; 80053; 83690; 85025; 96374; 96375; 99285; J2405; J7030; Q0162